=== PATIENT | male | born 1935 | race Caucasian/White ===

== ENCOUNTER 2020-07-02 13:27 | Outpatient (REF) | payer SELFPAY | END 2020-07-02 13:28 | disposition home or self-care (01) | LOC: HO.HAP 13:27 | PROVIDERS: Visit Provider Internal Medicine | DX: Z46.1 Encounter for fitting and adjustment of hearing aid (principal) | CPT/HCPCS: V5266; V5267 ==

== ENCOUNTER 2020-07-10 10:47 | Outpatient (REF) | payer MEDICARE, SELFPAY ==
[2020-07-10 13:46] LABS: Prothrombin Time 35.7 SEC (10.8-13.0)
== END 2020-07-10 10:48 | disposition home or self-care (01) ==
LOC: HO.10HDL 10:47
PROVIDERS: Visit Provider Internal Medicine
DX: I48.91 Unspecified atrial fibrillation (principal)
CPT/HCPCS: 36415; 85610

== ENCOUNTER → 2020-08-13 13:46 | Outpatient (BNVA) | payer MEDICARE, SELFPAY | PROVIDERS: PCP Internal Medicine; Referring Provider Internal Medicine; Visit Provider Internal Medicine Cardiovascular Disease | DX: Z76.89 Persons encountering health services in other specified circumstances (principal) ==

== ENCOUNTER → 2020-08-27 13:03 | Outpatient (BNVA) | payer MEDICARE, SELFPAY | PROVIDERS: PCP Internal Medicine; Visit Provider Internal Medicine Cardiovascular Disease | DX: I48.0 Paroxysmal atrial fibrillation (principal); I50.30 Unspecified diastolic (congestive) heart failure; I10 Essential (primary) hypertension | CPT/HCPCS: 93005; 99212 ==

== ENCOUNTER 2020-11-08 12:05 | Outpatient (REF) | payer MEDICARE, SELFPAY ==
[2020-11-08 13:43] LABS: MANUAL DIFF FLAG NO
[2020-11-08 13:56] LABS: Basophils Percent Auto 0.5 % (0-2); Eosinophils Absolute Auto 0.1 X10*3/uL (0.0-0.4); Eosinophils Percent Auto 1.9 % (0-4); Hematocrit 39.8 % (42-52); Hemoglobin 13.1 g/dl (14.0-18.0); Imm Gran Abs Auto 0.03 X10*3/uL (0.00-0.03); Imm Gran Pct Auto 0.5 % (0.0-0.4); Lymphocytes Absolute Auto 0.7 X10*3/uL (1.2-4.9); Lymphocytes Percent Auto 11.6 % (20-40); Mean Corpuscular HGB Conc 32.9 g/dl (31.0-36.0); Mean Corpuscular Hemoglobin 31.9 pg (27.0-33.0); Mean Corpuscular Volume 96.8 fL (80-98); Mean Platelet Volume 10.3 fL (9.4-12.4); Monocytes Absolute Auto 0.7 X10*3/uL (0.1-1.2); Monocytes Percent Auto 10.8 % (2-11); Neutrophils Absolute Auto 4.7 X10*3/uL (2.0-8.3); Neutrophils Percent Auto 74.7 % (45-73); Platelet Count 217 X10*3/uL (160-400); Red Blood Count 4.11 X10*6/uL (4.60-5.80); Red Cell Distribution Width 13.1 % (11.0-16.0); White Blood Count 6.3 X10*3/uL (4.8-10.8)
[2020-11-08 14:01] LABS: INTERNATIONAL NORM RATIO 1.5 (0.9-1.1); Prothrombin Time 17.9 SEC (10.8-13.0)
[2020-11-08 14:35] LABS: Alanine Aminotransferase 17 U/L (0-40); Albumin Level 4.2 g/dL (3.5-5.0); Alkaline Phosphatase 60 U/L (39-117); Anion Gap 13 (12-20); Aspartate Amino Transferase 20 U/L (5-37); Bilirubin Total 0.6 mg/dL (0.0-1.0); Blood Urea Nitrogen 14 mg/dL (9-16); Calcium 8.5 mg/dL (8.4-10.2); Carbon Dioxide 29 mmol/L (22-29); Chloride 101 mmol/L (96-108); Cholesterol 188 mg/dL; Estimated Glomerular Filt Rate > 60; Glucose Fasting 79 mg/dL (60-99); Potassium 3.4 mmol/L (3.3-5.1); Sodium 140 mmol/L (135-145); Total Protein 7.1 g/dL (6.5-8.0)
[2020-11-08 15:09] LABS: Thyroid Stimulating Hormone 1.03 uIU/mL (0.32-4.0)
== END 2020-11-08 12:06 | disposition home or self-care (01) ==
LOC: HO.10HDL 12:05
PROVIDERS: Visit Provider Internal Medicine
DX: I48.0 Paroxysmal atrial fibrillation (principal); I10 Essential (primary) hypertension; N40.0 Benign prostatic hyperplasia without lower urinary tract symptoms
CPT/HCPCS: 36415; 80053; 82465; 84443; 85025; 85610

== ENCOUNTER 2020-12-12 10:57 | Outpatient (REF) | payer MEDICARE, SELFPAY ==
[2020-12-12 14:14] LABS: INTERNATIONAL NORM RATIO 2.6 (0.9-1.1); Prothrombin Time 31.1 SEC (10.8-13.0)
== END 2020-12-12 10:58 | disposition home or self-care (01) ==
LOC: HO.10HDL 10:57
PROVIDERS: Visit Provider Internal Medicine
DX: I48.91 Unspecified atrial fibrillation (principal)
CPT/HCPCS: 36415; 85610

== ENCOUNTER → 2020-12-26 10:53 | Outpatient (BNVA) | payer MEDICARE, SELFPAY | PROVIDERS: PCP Internal Medicine; Visit Provider Physician Assistant | DX: M25.559 Pain in unspecified hip (principal) ==

== ENCOUNTER 2021-01-19 11:50 | Emergency (ER) | payer MEDICARE, SELFPAY ==
[2021-01-19 12:05] VITALS: BP 194/66; PULSE 75; RESP 17; TEMP 36.7; O2SAT 94; BMI 29.9
--- NOTE | 2021-01-19 12:18 | ED.WOUNDLAC ---
HPI - Wound/Laceration General Chief Complaint: Wound/Laceration Stated Complaint: WOUND R WRIST Time Seen by Provider: 01/19/21 12:10 Source: patient Mode of arrival: ambulatory Limitations: no limitations History of Present Illness HPI narrative: 85 y/o male with history of paroxysmal afib on Coumadin, HTN, BPH and recent subconjunctival hemorrhage to right eye (evaluated by Dr. Martinez last week) who presents to the ED from home with small abrasion on right forearm that is bleeding. He reports last night he itched what felt like a bug bite and it resulted in bleeding. He applied pressure and put a band aid on it with resolution. This morning he woke up and the bandage was saturated with blood. On arrival bleeding is resolved. Denies significant trauma. He reports his last INR was check a few weeks ago and was in the [address] Maurer manages his Coumadin and he is on alternating doses because he has had issues going up and down. He denies melena, BRBPR, hematuria or other sources of bleeding. No chest pain or dizziness. Onset (ago): day(s) (1) Extremity Location: right: forearm (distal lower aspect) Place: home Patient tetanus UTD: No Context: accidental Associated symptoms: none Treatments prior to arrival: bandage Related Data Home Medications Medication Instructions Recorded Confirmed amlodipine 5 mg tablet 5 mg PO DAILY tab 08/27/20 08/27/20 finasteride 5 mg tablet 5 mg PO DAILY tab 08/27/20 08/27/20 warfarin 5 mg tablet mg PO 08/27/20 08/27/20 Previous Rx's Medication Instructions Recorded amiodarone 200 mg tablet 200 mg PO DAILY #90 cap 11/06/20 metoprolol succinate 50 mg 50 mg PO DAILY #30 cap 11/06/20 tablet,extended release 24 hr Allergies Allergy/AdvReac Type Severity Reaction Status Date / Time No Known Allergies Allergy Mild NOT Verified 01/19/21 12:08 APPLICABLE Review of Systems Review of Systems: Constitutional: No Fever, No Chills ENT: no epistaxis Eyes: No Eye Pain, No Swelling, + Redness Cardiovascular: No Chest Pain, No SOB Gastrointestinal: No Nausea, No Vomiting, No Diarrhea, No abdominal Pain, No Hematochezia, No Melena Genitourinary: No Hematuria Musculoskeletal: No joint pain, No Myalgias Skin: + Skin Lesions, No rash Neuro: No Weakness, No Numbness, No Dizziness, No Headache Heme/Lymph: + Bruising, No Lymphadenopathy PMFSH Past Medical History Attestation statement: The following information was validated with the patient. Medical History (HFpEF) heart failure with preserved ejection fraction HTN (hypertension) Paroxysmal atrial fibrillation Surgical History History of cardioversion Family History Family History Father No problems noted. Mother No problems noted. Social History Social History Advance Directives: Yes Advance Directives Information Provided: Yes Advance Directives on File: No Physical Exam Vital Signs: Vital Signs: Last Vital Signs Temp 98.0 F 01/19/21 12:05 Pulse 75 01/19/21 12:05 Resp 17 01/19/21 13:10 BP 171/69 H 01/19/21 13:10 Pulse Ox 94 01/19/21 12:05 Body Mass Index 29.9 Appearance: Alert. Oriented X3. No acute distress. HEENT:right eye with sceral injection and redness consistent with subconjunctival hemorrhage. Respiratory: No respiratory distress. Speaking in complete sentences Skin: Skin warm and dry. Normal skin color. Normal skin turgor. No rashes. Extremities: Puntate abrasion on distal dorsal aspect of right forearm with slight oozing of blood, mild surrounding ecchymosis. NV intact distally with 2+ radial pulse, normal hand grasp. No bony tenderness. Normal ROM of the right wrist. Neuro: Oriented X 3. No motor deficit. No sensory deficit. Course Course Course Narrative: 85 y/o male on Coumadin presenting with a small abrasion on his forearm that was bleeding more than expected. Minimal active bleeding on arrival, stopped with holding pressure. Given his recent subconjunctival hemorrage and bleeding out of proportion will check INR. No signs of GI bleed or anemia. Reevaluation(s) Reevaluation #1: INR elevated 7.5. Patient advised to STOP taking Coumadin adn get INR checked tomorrow or Janee at the latest. He has a standing order at [address] and agrees to follow up wtih Dr. Maurer tomorrow. He was counseled on bleeding risk as well as signs and symptoms of GIB and symptomatic anemia. No active bleeding at this time. Hemodynamically stable. Comfortable with d/c home and plan for close outpatient follow up. Patient agrees with plan. MDM - Wound/Laceration Lab Data Labs: Lab Results 01/19/21 Range/Units 12:53 PT 91.6 H D (10.8-13.0) SEC INR 7.5 H* D (0.9-1.1) Discharge Plan Discharge Clinical Impression: Supratherapeutic INR, Superficial abrasion Patient Disposition: Home, Self-Care Instructions: Elevated INR (ED) Additional Instructions: Your INR today was 7.5. You need to get it rechecked tomorrow or Wednesday morning latest. DO NOT take your warfarin tomorrow. If you develop signs or symptoms of acute bleeding come to the ER for urgent evaluation. Follow up with Dr. Maurer tomorrow. Prescriptions: No Action amiodarone 200 mg tablet 200 mg PO DAILY Qty: 90 RF: 0 metoprolol succinate 50 mg tablet extended release 24 hr 50 mg PO DAILY Qty: 30 RF: 1 amlodipine 5 mg tablet 5 mg PO DAILY RF: 0 warfarin 5 mg tablet PO RF: 0 finasteride 5 mg tablet 5 mg PO DAILY RF: 0 Referrals: Marcos Maurer MD [Primary Care Provider] - 2 days (INR 7.5)
[2021-01-19 13:10] VITALS: BP 171/69; RESP 17
[2021-01-19 13:16] LABS: Prothrombin Time 91.6 SEC (10.8-13.0)
[2021-01-19 13:20] LABS: INTERNATIONAL NORM RATIO 7.5 (0.9-1.1)
== END 2021-01-19 13:44 | disposition home or self-care (01) ==
PROVIDERS: Physician Assistant; Emergency Provider Emergency Medicine; PCP Internal Medicine
DX: S50.811A Abrasion of right forearm, initial encounter (principal); M79.631 Pain in right forearm; R79.89 Other specified abnormal findings of blood chemistry; X58.XXXA Exposure to other specified factors, initial encounter; Y93.9 Activity, unspecified; Y92.9 Unspecified place or not applicable; Y99.9 Unspecified external cause status; Z79.899 Other long term (current) drug therapy
CPT/HCPCS: 36415; 85610; 99284

== ENCOUNTER 2021-01-25 08:29 | Inpatient (IN) | payer MEDICARE, SELFPAY ==
[2021-01-25] VITALS (7 sets, daily range): BP systolic 143–170; BP diastolic 46–76; PULSE 66–120; RESP 16–21; TEMP 36.4–39.2; O2SAT 87–98; BMI 29.9
--- NOTE | ~2021-01-25 | CT_ITS ---
EXAMINATION: CT ANGIOGRAM OF THE CHEST WITH AND WITHOUT CONTRAST (CT PULMONARY ANGIOGRAM FOR PE) CLINICAL INFORMATION: Reason for Exam febrile, hypoxic COMPARISON: Chest x-ray of same day and CT scan of March 05, 2010 TECHNIQUE: Prior to contrast administration, noncontrast localization images were obtained. Subsequently, multidetector volumetric imaging was performed from the thoracic inlet to below the diaphragms following the administration of 65 mL Omnipaque 350 intravenous contrast. No contrast reaction reported Sagittal, coronal, and MIP oblique sagittal reformatted images were obtained on the CT workstation, uploaded to PACS, and reviewed. This CT examination was performed using dose optimization techniques as appropriate, variously including the following: *Automated exposure control *Adjustment of mA and/or kV according to patient size (this includes techniques or standardized protocols for targeted exams where dose is matched to indication/reason for exam; i.e. extremities or head) *Use of iterative reconstruction technique Total exam dose-length product 491 mGy-cm FINDINGS: QUALITY OF STUDY/CONTRAST BOLUS: Satisfactory. PULMONARY ARTERIES: No central or segmental pulmonary emboli. THORACIC AORTA: No aneurysm or dissection. LUNG: There are changes of centrilobular emphysema seen bilaterally. There is some faint groundglass opacity present which is nonspecific but without a peripheral distribution having more of a central distribution. Central airways are patent. There is some mild bronchial wall thickening present. Findings may be related to mild pulmonary vascular congestion versus related to air trapping with small airways disease. There is bibasilar dependent airspace disease seen with the appearance of atelectasis. There are a few sub-4 mm densities present as well as some scattered calcified granulomas. PLEURA: There are very small bilateral pleural effusions. MEDIASTINUM: There is AP window, right paratracheal, and precarinal lymphadenopathy present. There is right hilar lymphadenopathy with less prominent left hilar nodes present. Heart is mildly enlarged. No pericardial effusion. Coronary artery calcifications are present. The ascending thoracic aorta is prominent at 4.6 cm in diameter. No evidence of thoracic aortic dissection. Coronary artery calcification is seen. No evidence of septal bowing or right heart strain. CHEST WALL/AXILLA: No axillary or internal mammary lymphadenopathy. There appears to be a lipoma within the right deltoid muscle. OSSEOUS STRUCTURES: No suspicious destructive bony lesion identified. There are old healed right rib fractures. There is multilevel degenerative disc disease seen. UPPER ABDOMEN: There is cholelithiasis without evidence of acute cholecystitis. No reflux of contrast into the hepatic veins to suggest elevated right heart pressures. CT/CT angio chest PE protocol IMPRESSION: No evidence of acute pulmonary artery embolus or thoracic aortic aneurysm or dissection. Changes of centrilobular emphysema as well as some nonspecific central groundglass opacity and bronchial wall thickening and interstitial prominence consistent with some degree of pulmonary vascular congestion. Mediastinal and hilar lymphadenopathy. Cholelithiasis without evidence of acute cholecystitis. Old granulomatous disease. Small bilateral pleural effusions and bibasilar atelectasis. VTE: negative
--- NOTE | ~2021-01-25 | XR_ITS ---
EXAMINATION: XR CHEST CLINICAL INFORMATION: Fever COMPARISON: July 11, 2019 TECHNIQUE: AP portable view of the chest was obtained. FINDINGS: Film is rotated. No significant acute parenchyma disease is appreciated. Heart normal size. No pulmonary edema. No pneumothorax. No significant pleural effusion. XR/XR chest 1V IMPRESSION: No definite acute parenchymal disease.
--- NOTE | 2021-01-25 09:11 | ECG_ITS ---
Test Reason : SHORT OF BREATH Blood Pressure : / mmHG Vent. Rate : 082 BPM Atrial Rate : 082 BPM P-R Int : 210 ms QRS Dur : 174 ms QT Int : 458 ms P-R-T Axes : 000 -55 030 degrees QTc Int : 535 ms Sinus rhythm with 1st degree A-V block Right bundle branch block Left anterior fascicular block Bifascicular block Septal infarct (cited on or before 28-JAN-2018) Cannot rule out Inferior infarct (cited on or before 28-JAN-2018) Abnormal ECG When compared with ECG of 08-FEB-2019 14:51, Left anterior fascicular block is now Present Referred By: Charis Rodarte Electronically Signed By:PERICO BHARDWAJ MD
--- NOTE | 2021-01-25 09:13 | ED_ITS ---
HPI - General Adult General Chief complaint: General Medical Stated complaint: NAUSEA,DIARRHEA X'S 2 HOURS Time Seen by Provider: 01/25/21 09:00 Source: EMS Mode of arrival: EMS History of Present Illness HPI narrative: 85-year-old male with a past medical history of AFib on Coumadin, CHF, HTN, BPH, subconjunctival hemorrhage, BIBA c/o waking up with chills, diarrhea, and not feeling right this morning so told his to call EMS. [place] s cough, headache, chest pain, shortness of breath, abdominal pain, nausea/vomiting, constipation, LE edema, dysuria/hematuria, weakness Onset (ago): hour(s) Related Data Home Medications Medication Instructions Recorded Confirmed amlodipine 5 mg tablet 5 mg PO DAILY tab 08/27/20 08/27/20 finasteride 5 mg tablet 5 mg PO DAILY tab 08/27/20 08/27/20 warfarin 5 mg tablet mg PO 08/27/20 08/27/20 Previous Rx's Medication Instructions Recorded amiodarone 200 mg tablet 200 mg PO DAILY #90 cap 11/06/20 metoprolol succinate 50 mg 50 mg PO DAILY #30 cap 11/06/20 tablet,extended release 24 hr Allergies Allergy/AdvReac Type Severity Reaction Status Date / Time No Known Allergies Allergy Mild NOT Verified 01/19/21 12:08 APPLICABLE Review of Systems Review of Systems: Constitutional: No Fever, + Chills, No Night Sweats, No Fatigue, No Malaise ENT/Mouth: No Ear Pain, No Nasal Congestion, No sore throat, No Rhinorrhea Eyes: No Eye Pain, No Discharge, No Vision Changes Cardiovascular: No Chest Pain, No SOB, No Edema, No Palpitations Respiratory: No Cough, No Dyspnea Gastrointestinal: No Nausea, No Vomiting, + Diarrhea, No Constipation, No Abdominal pain Genitourinary: No Dysuria, No Hematuria, No Flank Pain Musculoskeletal: No joint pain, No Myalgias, No Joint Swelling Skin: No Skin Lesions, No rash Neuro: No Weakness, No Headache Yes all other systems are reviewed and are negative [facility] Past Medical History Attestation statement: The following information was validated with the patient. Medical History (HFpEF) heart failure with preserved ejection fraction HTN (hypertension) Paroxysmal atrial fibrillation Surgical History History of cardioversion Family History Family History Father No problems noted. Mother No problems noted. Social History Social History Alcohol intake: current Alcohol intake frequency: 0-2 drinks per day Smoking Status: Former smoker Use of substances other than those prescribed or required for medical reasons: No Advance Directives: No Advance Directives Information Provided: No Physical Exam Vital Signs: Vital Signs: Last Vital Signs Temp 101.2 F H 01/25/21 11:21 Pulse 77 01/25/21 11:21 Resp 18 01/25/21 11:21 BP 144/70 H 01/25/21 11:21 Pulse Ox 95 01/25/21 11:21 Body Mass Index 29.9 Const: General: cooperative Nutritional Appearance: overweight Orientation/consciousness: patient oriented x3 Limitations: no limitations HENMT: Head: Yes normal to inspection Ears: hearing grossly normal bilaterally General nose exam: Normal external nose present Face and sinus: Yes normal facial exam Eyes: General: appearance normal, both eyes and all related structures EOM: EOMs intact bilaterally Neck: Neck: Yes normal visual inspection and Yes no meningeal signs Resp: Other: increased WOB when lying patient flat/standing Effort & Inspection: normal respiratory effort Auscultation: clear to auscultation bilaterally, no rales, no rhonchi and no wheezes Cardio: Rate: regular rate Heart sounds: S1 normal heart sound present and S2 normal heart sound present GI: Inspection: Yes normal to inspection Palpation (GI): Soft to palpation, nontender, no guarding and not rigid Skin: Rashes: no rashes Wounds: no wounds Neuro: General: patient oriented x3, tone normal and no meningeal signs Extrem: Other: +2 bilateral LE edema General: Yes normal to inspection Course Course Course Narrative: -1043--mild leukocytosis of 11.6, H&H stable, BUN mildly elevated to 26, AST elevated, BNP 851 -UA negative -lactic 1.4, INR therapeutic. Patient is not meeting severe sepsis criteria. Avoiding excessive IVF secondary to fluid overload and elevated BNP/hypoxia -1128--COVID-19/influenza/RSV negative XR chest 1V IMPRESSION: No definite acute parenchymal disease. >> will obtain CTA to rule out PE and pneumonia CT angio chest PE protocol IMPRESSION: No evidence of acute pulmonary artery embolus or thoracic aortic aneurysm or dissection. Changes of centrilobular emphysema as well as some nonspecific central groundglass opacity and bronchial wall thickening and interstitial prominence consistent with some degree of pulmonary vascular congestion. Mediastinal and hilar lymphadenopathy. Cholelithiasis without evidence of acute cholecystitis. Old granulomatous disease. Small bilateral pleural effusions and bibasilar atelectasis. VTE: negative >> 1440-- IV doxycycline added. Plan to admit for further management Medical Decision Making MDM Narrative Medical decision making narrative: 85-year-old male with a past medical history of AFib on Coumadin, CHF, HTN, BPH, subconjunctival hemorrhage, BIBA c/o waking up with chills, diarrhea, and not feeling right this morning so told his to call EMS. Reports slight diarrhea. On exam initially satting 90% on RA, dropped to 87% when standing, lungs CTA, increased WOB when lying flat, abdomen soft/nontender, bilateral LE edema. Concern for COVID-19/viral syndrome vs CHF. Rule out pneumonia and other infectious etiology. Lower concern for intra- abdominal pathology or ACS Plan: EKG, labs, COVID-19 testing, CXR, UA, IVF, Lactic/Blood Cx, empiric IV antibiotics, reassess Lab Data Result diagrams: 01/25/21 09:37 01/25/21 09:37 Labs: Lab Results 01/25/21 01/25/21 01/25/21 Range/Units 09:37 09:37 09:37 WBC 11.6 H (4.8-10.8) X10*3/uL RBC 3.46 L (4.60-5.80) X10*6/uL Hgb 11.5 L (14.0-18.0) g/dl Hct 34.9 L (42-52) % MCV 100.9 H (80-98) fL MCH 33.2 H (27.0-33.0) pg MCHC 33.0 (31.0-36.0) g/dl RDW 14.0 (11.0-16.0) % Plt Count 148 L D (160-400) X10*3/uL MPV 10.2 (9.4-12.4) fL Immature Gran % (Auto) 0.4 (0.0-0.4) % Neut % (Auto) 97.7 H (45-73) % Lymph % (Auto) 0.9 L (20-40) % [place] % (Auto) 0.5 L (2-11) % Eos % (Auto) 0.4 (0-4) % Baso % (Auto) 0.1 (0-2) % Lymph # (Auto) 0.1 L (1.2-4.9) X10*3/uL [place] # (Auto) 0.1 (0.1-1.2) X10*3/uL Eos # (Auto) 0.1 (0.0-0.4) X10*3/uL Baso # (Auto) 0.0 (0.0-0.2) X10*3/uL Abs Immat Gran (auto) 0.05 H (0.00-0.03) X10*3/uL Absolute Neuts (auto) 11.3 H (2.0-8.3) X10*3/uL Absolute Nucleated RBC 0.000 (0.0-0.012) X10*3/uL Nucleated RBC % (auto) 0.0 (0.0-0.2) /100WBC Smear Tech's Comments VERIFIED PT (10.8-13.0) SEC INR (0.9-1.1) APTT (24.1-38.0) SEC Sodium 145 (135-145) mmol/L Potassium 3.3 (3.3-5.1) mmol/L Chloride 109 H (96-108) mmol/L Carbon Dioxide 27 (22-29) mmol/L Anion Gap 12 (12-20) BUN 26 H D (9-16) mg/dL Creatinine 1.04 (0.5-1.4) mg/dL Estim Creat Clear Calc 58.2 Estimated GFR > 60 Random Glucose 95 (60-115) mg/dL Lactic Acid (0.5-2.0) mmol/L Calcium 9.0 (8.4-10.2) mg/dL Magnesium 2.0 (1.6-2.6) mg/dL Total Bilirubin 0.6 (0.0-1.0) mg/dL Direct Bilirubin 0.2 (0.0-0.5) mg/dL AST 71 H (5-37) U/L ALT 35 (0-40) U/L Alkaline Phosphatase 88 D (39-117) U/L Troponin I High Sens 26.1 (<3.5-35.0) ng/L B-Natriuretic Peptide (<100) pg/mL Total Protein 6.9 (6.5-8.0) g/dL Albumin 4.1 (3.5-5.0) g/dL Lipase (8-78) U/L Urine Color Urine Appearance Urine pH (5.0-8.0) Ur Specific [place] (1.005-1.025) Urine Protein (NEG-TRACE) MG/DL Urine Glucose (UA) (NEG) MG/DL Urine Ketones (NEG) MG/DL Urine Blood (NEG) Urine Nitrite (NEG) Ur Leukocyte Esterase (NEG) Coronavirus (PCR) (Negative) Influenza Type A (PCR) (Negative) Influenza Type B (PCR) (Negative) RSV RNA Qual (PCR) (Negative) 01/25/21 01/25/21 01/25/21 Range/Units 09:37 09:37 09:37 WBC (4.8-10.8) X10*3/uL RBC (4.60-5.80) X10*6/uL Hgb (14.0-18.0) g/dl Hct (42-52) % MCV (80-98) fL MCH (27.0-33.0) pg MCHC (31.0-36.0) g/dl RDW (11.0-16.0) % Plt Count (160-400) X10*3/uL MPV (9.4-12.4) fL Immature Gran % (Auto) (0.0-0.4) % Neut % (Auto) (45-73) % Lymph % (Auto) (20-40) % [place] % (Auto) (2-11) % Eos % (Auto) (0-4) % Baso % (Auto) (0-2) % Lymph # (Auto) (1.2-4.9) X10*3/uL [place] # (Auto) (0.1-1.2) X10*3/uL Eos # (Auto) (0.0-0.4) X10*3/uL Baso # (Auto) (0.0-0.2) X10*3/uL Abs Immat Gran (auto) (0.00-0.03) X10*3/uL Absolute Neuts (auto) (2.0-8.3) X10*3/uL Absolute Nucleated RBC (0.0-0.012) X10*3/uL Nucleated RBC % (auto) (0.0-0.2) /100WBC Smear Tech's Comments PT 28.3 H D (10.8-13.0) SEC INR 2.4 H (0.9-1.1) APTT 45.9 H (24.1-38.0) SEC Sodium (135-145) mmol/L Potassium (3.3-5.1) mmol/L Chloride (96-108) mmol/L Carbon Dioxide (22-29) mmol/L Anion Gap (12-20) BUN (9-16) mg/dL Creatinine (0.5-1.4) mg/dL Estim Creat Clear Calc Estimated GFR Random Glucose (60-115) mg/dL Lactic Acid 1.4 (0.5-2.0) mmol/L Calcium (8.4-10.2) mg/dL Magnesium (1.6-2.6) mg/dL Total Bilirubin (0.0-1.0) mg/dL Direct Bilirubin (0.0-0.5) mg/dL AST (5-37) U/L ALT (0-40) U/L Alkaline Phosphatase (39-117) U/L Troponin I High Sens (<3.5-35.0) ng/L B-Natriuretic Peptide 851 H (<100) pg/mL Total Protein (6.5-8.0) g/dL Albumin (3.5-5.0) g/dL Lipase (8-78) U/L Urine Color Urine Appearance Urine pH (5.0-8.0) Ur Specific [place] (1.005-1.025) Urine Protein (NEG-TRACE) MG/DL Urine Glucose (UA) (NEG) MG/DL Urine Ketones (NEG) MG/DL Urine Blood (NEG) Urine Nitrite (NEG) Ur Leukocyte Esterase (NEG) Coronavirus (PCR) (Negative) Influenza Type A (PCR) (Negative) Influenza Type B (PCR) (Negative) RSV RNA Qual (PCR) (Negative) 01/25/21 01/25/21 01/25/21 Range/Units 09:37 09:37 09:37 WBC (4.8-10.8) X10*3/uL RBC (4.60-5.80) X10*6/uL Hgb (14.0-18.0) g/dl Hct (42-52) % MCV (80-98) fL MCH (27.0-33.0) pg MCHC (31.0-36.0) g/dl RDW (11.0-16.0) % Plt Count (160-400) X10*3/uL MPV (9.4-12.4) fL Immature Gran % (Auto) (0.0-0.4) % Neut % (Auto) (45-73) % Lymph % (Auto) (20-40) % [place] % (Auto) (2-11) % Eos % (Auto) (0-4) % Baso % (Auto) (0-2) % Lymph # (Auto) (1.2-4.9) X10*3/uL [place] # (Auto) (0.1-1.2) X10*3/uL Eos # (Auto) (0.0-0.4) X10*3/uL Baso # (Auto) (0.0-0.2) X10*3/uL Abs Immat Gran (auto) (0.00-0.03) X10*3/uL Absolute Neuts (auto) (2.0-8.3) X10*3/uL Absolute Nucleated RBC (0.0-0.012) X10*3/uL Nucleated RBC % (auto) (0.0-0.2) /100WBC Smear Tech's Comments PT (10.8-13.0) SEC INR (0.9-1.1) APTT (24.1-38.0) SEC Sodium (135-145) mmol/L Potassium (3.3-5.1) mmol/L Chloride (96-108) mmol/L Carbon Dioxide (22-29) mmol/L Anion Gap (12-20) BUN (9-16) mg/dL Creatinine (0.5-1.4) mg/dL Estim Creat Clear Calc Estimated GFR Random Glucose (60-115) mg/dL Lactic Acid (0.5-2.0) mmol/L Calcium (8.4-10.2) mg/dL Magnesium (1.6-2.6) mg/dL Total Bilirubin (0.0-1.0) mg/dL Direct Bilirubin (0.0-0.5) mg/dL AST (5-37) U/L ALT (0-40) U/L Alkaline Phosphatase (39-117) U/L Troponin I High Sens (<3.5-35.0) ng/L B-Natriuretic Peptide (<100) pg/mL Total Protein (6.5-8.0) g/dL Albumin (3.5-5.0) g/dL Lipase 29 (8-78) U/L Urine Color YELLOW Urine Appearance CLEAR Urine pH 6.0 (5.0-8.0) Ur Specific [place] 1.020 (1.005-1.025) Urine Protein TRACE (NEG-TRACE) MG/DL Urine Glucose (UA) NEG (NEG) MG/DL Urine Ketones NEG (NEG) MG/DL Urine Blood NEG (NEG) Urine Nitrite NEG (NEG) Ur Leukocyte Esterase NEG (NEG) Coronavirus (PCR) NEGATIVE (Negative) Influenza Type A (PCR) NEGATIVE (Negative) Influenza Type B (PCR) NEGATIVE (Negative) RSV RNA Qual (PCR) NEGATIVE (Negative) Discharge Plan Discharge Clinical Impression: Pneumonia Qualifiers: Pneumonia type: due to unspecified organism Laterality: unspecified laterality Lung location: unspecified part of lung Qualified Code(s): J18.9 - Pneumonia, unspecified organism Patient Disposition: Home, Self-Care Prescriptions: No Action amiodarone 200 mg tablet 200 mg PO DAILY Qty: 90 RF: 0 metoprolol succinate 50 mg tablet extended release 24 hr 50 mg PO DAILY Qty: 30 RF: 1 amlodipine 5 mg tablet 5 mg PO DAILY RF: 0 warfarin 5 mg tablet PO RF: 0 finasteride 5 mg tablet 5 mg PO DAILY RF: 0
--- NOTE | 2021-01-25 09:19 | PC.NURSE ---
SOB with minimal exertion. LS clear. plus 2-3 pitting edema ble. cleansed of [place] loose stool in underwear from earlier diarrhea at home. pt is able to stand and urinate with minimal assist but WOB increases. states he doesn't feel SOB and is at baseline resp status. sao2 drops to 87% when standing. recovers quickly at rest in bed. very dry MM. SR on monitor with few pvc's and ? Right bundle. Awaiting EKG.
--- NOTE | 2021-01-25 09:55 | PC.NURSE ---
Update to , Ric, 2nd dose of covid vaccine was at least a month ago. drinks 4oz of hard liquor each evening.
[2021-01-25 10:08] LABS: Basophils Percent Auto 0.1 % (0-2); Eosinophils Absolute Auto 0.1 X10*3/uL (0.0-0.4); Eosinophils Percent Auto 0.4 % (0-4); Hematocrit 34.9 % (42-52); Hemoglobin 11.5 g/dl (14.0-18.0); Imm Gran Abs Auto 0.05 X10*3/uL (0.00-0.03); Imm Gran Pct Auto 0.4 % (0.0-0.4); Lymphocytes Absolute Auto 0.1 X10*3/uL (1.2-4.9); Lymphocytes Percent Auto 0.9 % (20-40); MANUAL DIFF FLAG SCAN; Mean Corpuscular Hemoglobin 33.2 pg (27.0-33.0); Mean Corpuscular Volume 100.9 fL (80-98); Mean Platelet Volume 10.2 fL (9.4-12.4); Monocytes Absolute Auto 0.1 X10*3/uL (0.1-1.2); Monocytes Percent Auto 0.5 % (2-11); Neutrophils Absolute Auto 11.3 X10*3/uL (2.0-8.3); Neutrophils Percent Auto 97.7 % (45-73); Platelet Count 148 X10*3/uL (160-400); Red Blood Count 3.46 X10*6/uL (4.60-5.80); SCAN SMEAR FLAG 1; White Blood Count 11.6 X10*3/uL (4.8-10.8)
[2021-01-25 10:09] LABS: INTERNATIONAL NORM RATIO 2.4 (0.9-1.1); Prothrombin Time 28.3 SEC (10.8-13.0)
[2021-01-25 10:10] LABS: Glucose Urine UA NEG (NEG); Leukocyte Esterase Urine NEG (NEG); Nitrite Urine NEG (NEG); Urine Blood NEG (NEG); Urine Ketones NEG (NEG); Urine Protein TRACE MG/DL (NEG-TRACE)
[2021-01-25 10:11] LABS: Appearance Urine CLEAR; Color Urine YELLOW
[2021-01-25 10:21] LABS: Partial Thromboplastin Time 45.9 SEC (24.1-38.0)
[2021-01-25 10:26] LABS: Lactic Acid 1.4 mmol/L (0.5-2.0)
[2021-01-25 10:30] LABS: Lipase 29 U/L (8-78)
[2021-01-25 10:31] LABS: Alanine Aminotransferase 35 U/L (0-40); Albumin Level 4.1 g/dL (3.5-5.0); Alkaline Phosphatase 88 U/L (39-117); Anion Gap 12 (12-20); Aspartate Amino Transferase 71 U/L (5-37); Bilirubin Direct 0.2 mg/dL (0.0-0.5); Bilirubin Total 0.6 mg/dL (0.0-1.0); Blood Urea Nitrogen 26 mg/dL (9-16); Carbon Dioxide 27 mmol/L (22-29); Chloride 109 mmol/L (96-108); Creatinine Clr Calc Pharmacy 58.2; Estimated Glomerular Filt Rate > 60; Glucose Random 95 mg/dL (60-115); Potassium 3.3 mmol/L (3.3-5.1); Sodium 145 mmol/L (135-145); Total Protein 6.9 g/dL (6.5-8.0)
[2021-01-25 10:32] LABS: SLIDE REVIEW VERIFIED
[2021-01-25 10:38] LABS: B Type Natriuretic Peptide 851 pg/mL (<100); Troponin-I High Sensitivity 26.1 ng/L (<3.5-35.0)
[2021-01-25] MEDS: Acetaminophen 325 MG TABLET 650 MG PO (10:38)
[2021-01-25] MEDS: cefTRIAXone sodium 1 GM in 0.9 % Sodium Chloride 50 ML IV (10:39)
[2021-01-25] MEDS: 0.9 % Sodium Chloride 1,000 ML 999 ML IVCONT (10:39)
[2021-01-25 10:54] LABS: Influenza A PCR NEGATIVE (Negative); Influenza B PCR NEGATIVE (Negative); Resp Syncy Virus RNA Qual PCR NEGATIVE (Negative); SARS COV2 PCR INHOUSE NEGATIVE (Negative)
[2021-01-25] MEDS: iohexoL 350 MG/ML 100 ML INFUS..BTL IV (13:20)
[2021-01-25] MEDS: Doxycycline Hyclate 100 MG in 0.9 % Sodium Chloride 250 ML 166.67 MG IV (15:39)
--- NOTE | 2021-01-25 15:44 | PC.NURSE ---
unlabored at rest. nsr with rbundle on monitor. awaits admission. no complaints at this time.
--- NOTE | 2021-01-25 17:15 | P.HPHOSP_ITS ---
History of Present Illness Date of Service: 01/25/21 <TONY Plaza - Last Filed: 01/25/21 17:27> Chief Complaint: Chills <TONY Plaza - Last Filed: 01/25/21 17:27> This is an 85-year-old male with a history of atrial fibrillation Coumadin, hypertension, BPH who presents to the emergency department after an episode of chills. Yesterday he was in his usual state of health. Today when he woke he reported an episode of chills and 1 small episode of diarrhea. He reports he not feeling right. He denies any shortness of breath, cough, fever, recent sick contacts. He has had no abdominal pain, nausea, vomiting. He was brought to the emergency department for evaluation. On arrival he was febrile with a temperature of 102.5 degrees. He was not tachycardic or tachypneic however his oxygen saturation dropped to 87% on room air.He underwent CTA which showed no evidence of pulmonary embolism. It did show centrilobular emphysema as well as central ground-glass opacity bronchial wall thickening and interstitial prominence consistent with pulmonary vascular congestion. His BNP was elevated at 851. COVID swab and flu swab were negative. He was treated with IV antibiotics in the decision was made to admit him for further management. Patient reports that his symptoms have completely resolved at this time. <TONY Plaza - Last Filed: 01/25/21 17:27> Review of Systems Review of Systems: Yes all other systems are reviewed and are negative <TONY Plaza - Last Filed: 01/25/21 17:27> Constitutional: Constitutional: Denies fever(s) <TONY Plaza Last Filed: 01/25/21 17:27> Cardiovascular: Cardiovascular: Denies chest pain <TONY Plaza Last Filed: 01/25/21 17:27> Respiratory: Respiratory: Denies cough <TONY Plaza Last Filed: 01/25/21 17:27> Gastrointestinal: Gastrointestinal: Denies abdominal pain <TONY Plaza Last Filed: 01/25/21 17:27> [facility] Medical History: Medical History (HFpEF) heart failure with preserved ejection fraction HTN (hypertension) Paroxysmal atrial fibrillation <TONY Plaza - Last Filed: 01/25/21 17:27> Family History: Family History Father No problems noted. Mother No problems noted. <TONY Plaza - Last Filed: 01/25/21 17:27> Surgical History: Surgical History History of cardioversion <TONY Plaza - Last Filed: 01/25/21 17:27> Social History: Social History Household Members: Spouse Housing: House Do you presently have visiting nurse or other home services: No Alcohol intake: current Alcohol intake frequency: 0-2 drinks per day Smoking Status: Former smoker Use of substances other than those prescribed or required for medical reasons: No Currently Displaying Signs/Symptoms of Drug Intoxication Withdrawal: No Have you been hit, kicked, punched, or otherwise hurt by someone within the past year? If so, by whom?: No Do you feel safe in your current relationship?: Yes Is there a partner from a previous relationship who is making you feel unsafe now?: No Are you made to feel afraid or neglected: No Advance Directives: No Advance Directives Information Provided: No Do you have thoughts of harming others: None Do you have a plan to hurt others: No Plan Recently lost weight without trying: Unsure Nutrition Risks: No Nutritional Risk Poor oral hygiene: No Current occupational status: retired <TONY Plaza - Last Filed: 01/25/21 17:27> Meds Allergies/Adverse reactions: Allergies Allergy/AdvReac Type Severity Reaction Status Date / Time No Known Allergies Allergy Mild NOT Verified 01/19/21 12:08 APPLICABLE <TONY Plaza - Last Filed: 01/25/21 17:27> Home medications: Home Medications Medication Instructions Recorded Confirmed Last Taken Type amlodipine 5 mg tablet 5 mg PO DAILY tab 08/27/20 01/25/21 01/24/21 History finasteride 5 mg tablet 5 mg PO DAILY tab 08/27/20 01/25/21 01/24/21 History warfarin 5 mg tablet 5 mg PO DAILY 08/27/20 01/25/21 01/24/21 History <TONY Plaza - Last Filed: 01/25/21 17:27> Physical Exam Vital Signs and Narrative: Vital Signs: Last Vital Signs Temp 98.4 F 01/25/21 15:42 Pulse 66 01/25/21 15:42 Resp 18 01/25/21 15:42 BP 152/67 H 01/25/21 15:42 Pulse Ox 98 01/25/21 15:42 Body Mass Index 29.9 <TONY Plaza - Last Filed: 01/25/21 17:27> Const: Nutritional Appearance: well nourished <TONY Plaza - Last Filed: 01/25/21 17:27> Orientation/consciousness: patient oriented x3 <TONY Plaza - Last Filed: 01/25/21 17:27> HENMT: Head: Yes normocephalic and Yes atraumatic <TONY Plaza - Last Filed: 01/25/21 17:27> Eyes: Sclerae: sclerae normal <TONY Plaza - Last Filed: 01/25/21 17:27> Chest: Chest palpation & inspection: normal inspection of the chest <TONY Plaza - Last Filed: 01/25/21 17:27> Resp: Effort & Inspection: normal respiratory effort and no respiratory distress <TONY Plaza - Last Filed: 01/25/21 17:27> Auscultation: clear to auscultation bilaterally <TONY Plaza - Last Filed: 01/25/21 17:27> Cardio: Rate: regular rate <TONY Plaza - Last Filed: 01/25/21 17:27> Rhythm: regular rhythm <TONY Plaza - Last Filed: 01/25/21 17:27> GI: Palpation (GI): Soft to palpation and nontender <TONY Plaza - Last Filed: 01/25/21 17:27> Neuro: General: patient oriented x3 <TONY Plaza - Last Filed: 01/25/21 17:27> Cranial nerves: Yes CN's II-XII intact bilaterally and Yes Bilaterally intact EOM present <TONY Plaza - Last Filed: 01/25/21 17:27> Extrem: Other: Bilateral leg edema <TONY Plaza - Last Filed: 01/25/21 17:27> Results Labs CBC and Chem 7: : 01/26/21 04:30 01/26/21 04:30 <TONY Plaza - Last Filed: 01/25/21 17:27> Labs: Laboratory Results - last 24 hr 01/25/21 01/25/21 01/25/21 09:37 09:37 09:37 MCV 100.9 H MCH 33.2 H MCHC 33.0 RDW 14.0 Plt Count 148 L D MPV 10.2 Immature Gran % (Auto) 0.4 Neut % (Auto) 97.7 H Lymph % (Auto) 0.9 L [place] % (Auto) 0.5 L Eos % (Auto) 0.4 Baso % (Auto) 0.1 Lymph # (Auto) 0.1 L [place] # (Auto) 0.1 Eos # (Auto) 0.1 Baso # (Auto) 0.0 Abs Immat Gran (auto) 0.05 H Absolute Neuts (auto) 11.3 H Absolute Nucleated RBC 0.000 Nucleated RBC % (auto) 0.0 Smear Tech's Comments VERIFIED PT INR APTT Anion Gap 12 Estim Creat Clear Calc 58.2 Estimated GFR > 60 Random Glucose 95 Lactic Acid Calcium 9.0 Magnesium 2.0 Total Bilirubin 0.6 Direct Bilirubin 0.2 AST 71 H ALT 35 Alkaline Phosphatase 88 D Troponin I High Sens 26.1 B-Natriuretic Peptide Total Protein 6.9 Albumin 4.1 Lipase Urine Color Urine Appearance Urine pH Ur Specific [place] Urine Protein Urine Glucose (UA) Urine Ketones Urine Blood Urine Nitrite Ur Leukocyte Esterase Coronavirus (PCR) Influenza Type A (PCR) Influenza Type B (PCR) RSV RNA Qual (PCR) 01/25/21 01/25/21 01/25/21 09:37 09:37 09:37 MCV MCH MCHC RDW Plt Count MPV Immature Gran % (Auto) Neut % (Auto) Lymph % (Auto) [place] % (Auto) Eos % (Auto) Baso % (Auto) Lymph # (Auto) [place] # (Auto) Eos # (Auto) Baso # (Auto) Abs Immat Gran (auto) Absolute Neuts (auto) Absolute Nucleated RBC Nucleated RBC % (auto) Smear Tech's Comments PT 28.3 H D INR 2.4 H APTT 45.9 H Anion Gap Estim Creat Clear Calc Estimated GFR Random Glucose Lactic Acid 1.4 Calcium Magnesium Total Bilirubin Direct Bilirubin AST ALT Alkaline Phosphatase Troponin I High Sens B-Natriuretic Peptide 851 H Total Protein Albumin Lipase Urine Color Urine Appearance Urine pH Ur Specific [place] Urine Protein Urine Glucose (UA) Urine Ketones Urine Blood Urine Nitrite Ur Leukocyte Esterase Coronavirus (PCR) Influenza Type A (PCR) Influenza Type B (PCR) RSV RNA Qual (PCR) 01/25/21 01/25/21 01/25/21 09:37 09:37 09:37 MCV MCH MCHC RDW Plt Count MPV Immature Gran % (Auto) Neut % (Auto) Lymph % (Auto) [place] % (Auto) Eos % (Auto) Baso % (Auto) Lymph # (Auto) [place] # (Auto) Eos # (Auto) Baso # (Auto) Abs Immat Gran (auto) Absolute Neuts (auto) Absolute Nucleated RBC Nucleated RBC % (auto) Smear Tech's Comments PT INR APTT Anion Gap Estim Creat Clear Calc Estimated GFR Random Glucose Lactic Acid Calcium Magnesium Total Bilirubin Direct Bilirubin AST ALT Alkaline Phosphatase Troponin I High Sens B-Natriuretic Peptide Total Protein Albumin Lipase 29 Urine Color YELLOW Urine Appearance CLEAR Urine pH 6.0 Ur Specific [place] 1.020 Urine Protein TRACE Urine Glucose (UA) NEG Urine Ketones NEG Urine Blood NEG Urine Nitrite NEG Ur Leukocyte Esterase NEG Coronavirus (PCR) NEGATIVE Influenza Type A (PCR) NEGATIVE Influenza Type B (PCR) NEGATIVE RSV RNA Qual (PCR) NEGATIVE <TONY Plaza - Last Filed: 01/25/21 17:27> Imaging Radiologist's Impressions: Impressions Chest X-Ray 01/25/21 09:11 IMPRESSION: No definite acute parenchymal disease. Chest CTA 01/25/21 11:27 IMPRESSION: No evidence of acute pulmonary artery embolus or thoracic aortic aneurysm or dissection. Changes of centrilobular emphysema as well as some nonspecific central groundglass opacity and bronchial wall thickening and interstitial prominence consistent with some degree of pulmonary vascular congestion. Mediastinal and hilar lymphadenopathy. Cholelithiasis without evidence of acute cholecystitis. Old granulomatous disease. Small bilateral pleural effusions and bibasilar atelectasis. VTE: negative <TONY Plaza - Last Filed: 01/25/21 17:27> Assessment and Plan (1) Acute respiratory failure with hypoxia: Status: Acute <TONY Plaza - Last Filed: 01/25/21 17:27> This is an 85-year-old male with history of atrial fibrillation on Coumadin, hypertension, BPH, diastolic CHF who presents emergency department with episode of chills found to have fever and hypoxia Acute respiratory failure with hypoxia Question secondary to underlying viral infection vs PNA with likely component of CHF CT scan also showing underlying emphysema Covid, Flu negative. -IV doxycycline -supplement oxygen as needed -check respiratory pathogen panel -supportive care Acute on chronic diastolic CHF BNP elevated at 851. CTA showing vascular congestion not on Lasix at home -will start gentle IV diuresis -echocardiogram Atrial fibrillation Appears to be suppressed with amiodarone -Continue amiodarone, metoprolol -continue anticoagulation with Coumadin. INR therapeutic at 2.4 Hypertension Continue Norvasc BPH Continue finasteride Thrombocytopenia Has had thrombocytopenia in the past Follow CBC DVT prophylaxis-Coumadin Code status-DNR/DNI Attending-Dr. garcia <TONY Plaza - Last Filed: 01/25/21 17:27>
[2021-01-25 19:41] LABS: Adenovirus PCR Not Detected (Not Detect.); Bordetella parapertussis PCR Not Detected (Not Detect.); Bordetella pertussis PCR Not Detected (Not Detect.); Chlamydia pneumoniae PCR Not Detected (Not Detect.); Coronavirus 229E PCR Not Detected (Not Detect.); Coronavirus HKU1 PCR Not Detected (Not Detect.); Coronavirus NL63 PCR Not Detected (Not Detect.); Coronavirus OC43 PCR Not Detected (Not Detect.); Human metapneumovirus PCR Not Detected (Not Detect.); Influenza A PCR Not Detected (Not Detect.); Influenza B PCR Not Detected (Not Detect.); Mycoplasma pneumoniae PCR Not Detected (Not Detect.); Parainfluenza 1 PCR Not Detected (Not Detect.); Parainfluenza 2 PCR Not Detected (Not Detect.); Parainfluenza 3 PCR Not Detected (Not Detect.); Parainfluenza 4 PCR Not Detected (Not Detect.); RSV PCR Not Detected (Not Detect.); Rhino/Enterovirus PCR Not Detected (Not Detect.); SARS-CoV-2 PCR Not Detected (Not Detect.)
--- NOTE | 2021-01-25 19:44 | PC.NURSE ---
attempted to give report. rn unavailable. will call back in 10 mintues.
[2021-01-25] MEDS: Furosemide 40 MG/4 ML VIAL IVPUSH (21:23)
[2021-01-25] MEDS: 0.9 % Sodium Chloride Flush 3 ML SYRINGE IVFLUSH (23:50)
[2021-01-26] VITALS (8 sets, daily range): BP systolic 138–167; BP diastolic 64–81; PULSE 56–69; RESP 18–20; TEMP 36.2–36.8; O2SAT 97–100
[2021-01-26 05:28] LABS: Prothrombin Time 23.7 SEC (10.8-13.0)
[2021-01-26 05:33] LABS: Hemoglobin 10.2 g/dl (14.0-18.0); PLT CLUMP 1
[2021-01-26 05:34] LABS: Hematocrit 30.9 % (42-52); Mean Corpuscular Hemoglobin 33.2 pg (27.0-33.0); Mean Corpuscular Volume 100.7 fL (80-98); Mean Platelet Volume 10.8 fL (9.4-12.4); Platelet Count 146 X10*3/uL (160-400); Red Blood Count 3.07 X10*6/uL (4.60-5.80); Red Cell Distribution Width 14.2 % (11.0-16.0); White Blood Count 10.7 X10*3/uL (4.8-10.8)
[2021-01-26 05:43] LABS: Anion Gap 10 (12-20); Blood Urea Nitrogen 21 mg/dL (9-16); Calcium 8.5 mg/dL (8.4-10.2); Carbon Dioxide 32 mmol/L (22-29); Chloride 105 mmol/L (96-108); Creatinine Clr Calc Pharmacy 75.6; Estimated Glomerular Filt Rate > 60; Glucose Random 84 mg/dL (60-115); Potassium 3.3 mmol/L (3.3-5.1); Sodium 144 mmol/L (135-145)
[2021-01-26] MEDS: Doxycycline Hyclate 100 MG in 0.9 % Sodium Chloride 250 ML 166.67 MG IV (06:26)
[2021-01-26] MEDS: Furosemide 40 MG/4 ML VIAL IVPUSH ×2 (08:15→17:21)
[2021-01-26] MEDS: Metoprolol Succinate ER 50 MG TAB.ER.24H PO (08:16)
[2021-01-26] MEDS: Amiodarone HCL 200 MG TABLET PO (08:17)
[2021-01-26] MEDS: amLODIPine Besylate 5 MG TABLET PO (08:18)
[2021-01-26] MEDS: Finasteride 5 MG TABLET PO (08:18)
[2021-01-26] MEDS: 0.9 % Sodium Chloride Flush 3 ML SYRINGE IVFLUSH ×2 (08:19→17:20)
[2021-01-26 08:29] LABS: B Type Natriuretic Peptide 961 pg/mL (<100)
--- NOTE | 2021-01-26 13:35 | HO.PM.IMPN ---
Subjective Subjective Date of Service: 01/26/21 <TONY Plaza - Last Filed: 01/26/21 14:25> 01/26/21 <Estuardo Toth MD - Last Filed: 01/26/21 14:37> Interval History: seen and examined this morning No overnight events, no complaints this morning denies any shortness of breath, cough, fever or chills <TONY Plaza - Last Filed: 01/26/21 14:25> Review of Systems Review of Systems: Yes all other systems are reviewed and are negative <TONY Plaza - Last Filed: 01/26/21 14:25> Constitutional Constitutional: Denies chills and Denies fever(s) <TONY Plaza - Last Filed: 01/26/21 14:25> Cardiovascular Cardiovascular: Denies chest pain <TONY Plaza - Last Filed: 01/26/21 14:25> Respiratory Respiratory: Denies cough <TONY Plaza - Last Filed: 01/26/21 14:25> Gastrointestinal Gastrointestinal: Denies abdominal pain <TONY Plaza - Last Filed: 01/26/21 14:25> Physical Exam Vital Signs: Vital Signs: Last Vital Signs Temp 97.1 F 01/26/21 11:15 Pulse 69 01/26/21 11:15 Resp 19 01/26/21 11:15 BP 138/64 01/26/21 11:15 Pulse Ox 100 01/26/21 11:15 Body Mass Index 29.9 <TONY Plaza - Last Filed: 01/26/21 14:25> Const: Nutritional Appearance: well nourished <TONY Plaza - Last Filed: 01/26/21 14:25> Orientation/consciousness: patient oriented x3 <TONY Plaza - Last Filed: 01/26/21 14:25> HENMT: Head: Yes normocephalic and Yes atraumatic <TONY Plaza - Last Filed: 01/26/21 14:25> Eyes: Sclerae: sclerae normal <TONY Plaza - Last Filed: 01/26/21 14:25> Chest: Chest palpation & inspection: normal inspection of the chest <TONY Plaza - Last Filed: 01/26/21 14:25> Resp: Effort & Inspection: normal respiratory effort and no respiratory distress <TONY Plaza - Last Filed: 01/26/21 14:25> Auscultation: clear to auscultation bilaterally <TONY Plaza - Last Filed: 01/26/21 14:25> Cardio: Rate: regular rate <TONY Plaza - Last Filed: 01/26/21 14:25> Rhythm: regular rhythm <TONY Plaza - Last Filed: 01/26/21 14:25> GI: Palpation (GI): Soft to palpation and nontender <TONY Plaza - Last Filed: 01/26/21 14:25> Neuro: General: patient oriented x3 <TONY Plaza - Last Filed: 01/26/21 14:25> Cranial nerves: Yes CN's II-XII intact bilaterally and Yes Bilaterally intact EOM present <TONY Plaza - Last Filed: 01/26/21 14:25> Extrem: Other: lower extremity edema improving <TONY Plaza Last Filed: 01/26/21 14:25> Objective Data Current Medications Generic Name Dose Route Start Last Admin Trade Name Freq PRN Reason Stop Dose Admin Acetaminophen 650 mg 01/25/21 19:38 Acetaminophen 325 Mg Tablet PO Q6H PRN Pain, Mild (Pain Scale 1-3) Albuterol Sulfate 2.5 mg 01/25/21 19:38 Albuterol Sulfate (0.083%) 2.5 Mg/3 Ml Vial.Neb INHALE Q4H PRN Shortness of Breath Amiodarone HCl 200 mg 01/26/21 09:00 01/26/21 08:17 Amiodarone Hcl 200 Mg Tablet PO 200 mg DAILY LUPE Administration Amlodipine Besylate 5 mg 01/26/21 09:00 01/26/21 08:18 Amlodipine Besylate 5 Mg Tablet PO 5 mg DAILY LUPE Administration Protocol Docusate Sodium 100 mg 01/25/21 19:38 Docusate Sodium 100 Mg Capsule PO DAILY PRN Constipation Finasteride 5 mg 01/26/21 09:00 01/26/21 08:18 Finasteride 5 Mg Tablet PO 5 mg DAILY LUPE Administration Furosemide 40 mg 01/25/21 19:38 01/26/21 08:15 Furosemide 40 Mg/4 Ml Vial IVPUSH 40 mg DAILY LUPE Administration Protocol Doxycycline Hyclate 100 mg/ 250 mls @ 166.67 mls/hr 01/26/21 06:00 01/26/21 08:03 Sodium Chloride IV Infused Q12H LUPE Infusion Metoprolol Succinate 50 mg 01/26/21 09:00 01/26/21 08:16 Metoprolol Succinate Er 50 Mg Tab.Er.24h PO 50 mg DAILY LUPE Administration Protocol Sodium Chloride 3 ml 01/26/21 00:00 01/26/21 08:19 0.9 % Sodium Chloride Flush 3 Ml Syringe IVFLUSH 3 ml QSHIFT LUPE Administration Warfarin Sodium 5 mg 01/26/21 18:00 Warfarin Sodium 5 Mg Tablet PO DAILY@1800 LUPE <TONY Plaza - Last Filed: 01/26/21 14:25> Labs CBC & Chem 7: : 01/26/21 04:30 01/26/21 04:30 <TONY Plaza - Last Filed: 01/26/21 14:25> Microbiology Microbiology Results: Microbiology 01/25/21 09:49 Blood - Venous Blood Culture - Preliminary No growth after 24 hours. 01/25/21 09:36 Blood - Venous Blood Culture - Preliminary No growth after 24 hours. <TONY Plaza - Last Filed: 01/26/21 14:25> Assessment and Plan (1) Acute respiratory failure with hypoxia: Status: Acute <TONY Plaza - Last Filed: 01/26/21 14:25> Assessment and Plan: This is an 85-year-old male with history of atrial fibrillation on Coumadin, hypertension, BPH, diastolic CHF who presents emergency department with episode of chills found to have fever and hypoxia Acute respiratory failure with hypoxia r/t CHF. also with groundglass opacities and emphysema on chest CTA Covid, Flu negative. RPP negative -Continue IV doxycycline (started on 01/25) -supplement oxygen as needed -supportive care -pulmonary consult Acute on chronic diastolic CHF BNP elevated at 851. CTA showing vascular congestion not on Lasix at home -increase Lasix to bid -echocardiogram ordered -follow Is&Os Atrial fibrillation Suppressed with amiodarone -Continue amiodarone, metoprolol -continue anticoagulation with Coumadin. -follow INR Macrocytic -check b12, folate Hypertension Continue Norvasc BPH Continue finasteride Thrombocytopenia Has had thrombocytopenia in the past Follow CBC DVT prophylaxis-Coumadin Code status-DNR/DNI Attending-Dr. garcia <TONY Plaza - Last Filed: 01/26/21 14:25>
--- NOTE | 2021-01-26 13:56 | MHC.CM.PN ---
CM MET WITH PT WHO REPORTS HE LIVES WITH HIS AND IS INDEPENDENT WITH ALL CARE AND MOBILITY. PT DENIES THE USE OF DME OR HOME SERVICES AND REPORTS HE DOES NOT NEED THEM. PT REPORTS HIS PCP IS LILLIAN MORRISON AND STATES HE HAS A HCP NAMING HIS HIS AGENT. COPY REQUESTED IMM DELIVERED CURRENT DC PLAN IS HOME WITH NO SERVICES PT TO ARRANGE TRANSPORT
--- NOTE | 2021-01-26 14:28 | PM.CNCAR ---
History of Present Illness History of Present Illness Date of Service: 01/26/21 Requesting physician: Estuardo Toth Consult reason: congestive heart failure Chief complaint: Respiratory Failure Narrative: I was asked to see Thierry in cardiology consultation today for findings of heart failure on CT scan with pulmonary vascular congestion and interstitial prominence as well as further elevated BNP in the setting of known prior history of heart failure preserved ejection fraction and atrial fibrillation, maintain rhythm on chronic amiodarone therapy. He presented with symptoms of chills and fever and when he came to the hospital he was noted to be highly febrile. Subsequent findings were concerning for possibly lobar pneumonia. Have subsequent CT scan did not show any evidence of lobar infiltrate but shows ground-glass opacity. Cardiology consult was sought for management of his elevated BNP and congestive heart failure. He has been given Lasix 40 mg IV. Has had some diuresis. Currently patient says he is feeling extremely well. Shortness of breath is normalized. He has does not have any fever or chills. Denies any other complaints. Review of Systems Constitutional: Constitutional: Reports chills and Reports fever(s) Cardiovascular: Cardiovascular: Denies chest pain, Denies leg edema, Denies palpitations, Reports dyspnea on exertion and Denies orthopnea Respiratory: Respiratory: Reports no additional respiratory complaints and Reports dyspnea on exertion Gastrointestinal: Gastrointestinal: Reports no additional gastrointestinal complaints Genitourinary: Genitourinary: Reports no additional male genitourinary complaints Musculoskeletal: Musculoskeletal: Reports no additional musculoskeletal complaints Neurologic: Reports system reviewed and no additional complaints, except as documented Psychiatric: Psychiatric: Reports no additional psychiatric complaints Endocrine: Endocrine: Reports no additional endocrine complaints and Denies palpitations Hematologic/Lymphatic: Hematologic/Lymphatic: Reports no additional hematologic/lymphatic complaints [facility] Past Medical History Medical History (HFpEF) heart failure with preserved ejection fraction HTN (hypertension) Paroxysmal atrial fibrillation Family History Family History Father No problems noted. Mother No problems noted. Surgical History Surgical History History of cardioversion Social History Social History Household Members: Spouse Housing: House Do you presently have visiting nurse or other home services: No Alcohol intake: current Alcohol intake frequency: 0-2 drinks per day Smoking Status: Former smoker Use of substances other than those prescribed or required for medical reasons: No Currently Displaying Signs/Symptoms of Drug Intoxication Withdrawal: No Have you been hit, kicked, punched, or otherwise hurt by someone within the past year? If so, by whom?: No Do you feel safe in your current relationship?: Yes Is there a partner from a previous relationship who is making you feel unsafe now?: No Are you made to feel afraid or neglected: No Advance Directives: No Advance Directives Information Provided: No Do you have thoughts of harming others: None Do you have a plan to hurt others: No Plan Recently lost weight without trying: Unsure Nutrition Risks: No Nutritional Risk Poor oral hygiene: No Current occupational status: retired [employer] Allergies Allergy/AdvReac Type Severity Reaction Status Date / Time No Known Allergies Allergy Mild NOT Verified 01/19/21 12:08 APPLICABLE Active Medications: Current Medications Generic Name Dose Route Start Last Admin Trade Name Freq PRN Reason Stop Dose Admin Acetaminophen 650 mg 01/25/21 19:38 Acetaminophen 325 Mg Tablet PO Q6H PRN Pain, Mild (Pain Scale 1-3) Albuterol Sulfate 2.5 mg 01/25/21 19:38 Albuterol Sulfate (0.083%) 2.5 Mg/3 Ml Vial.Neb INHALE Q4H PRN Shortness of Breath Amiodarone HCl 200 mg 01/26/21 09:00 01/26/21 08:17 Amiodarone Hcl 200 Mg Tablet PO 200 mg DAILY [facility] Administration Amlodipine Besylate 5 mg 01/26/21 09:00 01/26/21 08:18 Amlodipine Besylate 5 Mg Tablet PO 5 mg DAILY [facility] Administration Protocol Docusate Sodium 100 mg 01/25/21 19:38 Docusate Sodium 100 Mg Capsule PO DAILY PRN Constipation Finasteride 5 mg 01/26/21 09:00 01/26/21 08:18 Finasteride 5 Mg Tablet PO 5 mg DAILY [facility] Administration Furosemide 40 mg 01/26/21 18:00 Furosemide 40 Mg/4 Ml Vial IVPUSH BID@0900,1800 [facility] Protocol Doxycycline Hyclate 100 mg/ 250 mls @ 166.67 mls/hr 01/26/21 06:00 01/26/21 08:03 Sodium Chloride IV Infused Q12H [facility] Infusion Metoprolol Succinate 50 mg 01/26/21 09:00 01/26/21 08:16 Metoprolol Succinate Er 50 Mg Tab.Er.24h PO 50 mg DAILY [facility] Administration Protocol Sodium Chloride 3 ml 01/26/21 00:00 01/26/21 08:19 0.9 % Sodium Chloride Flush 3 Ml Syringe IVFLUSH 3 ml QSHIFT [facility] Administration Warfarin Sodium 5 mg 01/26/21 18:00 Warfarin Sodium 5 Mg Tablet PO DAILY@1800 [facility] Home Medications Medication Instructions Recorded Confirmed Last Taken Type amlodipine 5 mg tablet 5 mg PO DAILY tab 08/27/20 01/25/21 01/24/21 History finasteride 5 mg tablet 5 mg PO DAILY tab 08/27/20 01/25/21 01/24/21 History warfarin 5 mg tablet 5 mg PO DAILY 08/27/20 01/25/21 01/24/21 History Physical Exam Vital Signs: Vital Signs: Last Vital Signs Temp 97.1 F 01/26/21 11:15 Pulse 69 01/26/21 11:15 Resp 19 01/26/21 11:15 BP 138/64 01/26/21 11:15 Pulse Ox 100 01/26/21 11:15 Body Mass Index 29.9 Const: General: cooperative, comfortable, no acute distress, alert and awake Nutritional Appearance: overweight Orientation/consciousness: patient oriented x3 Limitations: no limitations HENMT: Head: Yes normocephalic and Yes atraumatic Neck: Neck: Yes trachea midline, Yes supple and Yes no JVD Resp: Effort & Inspection: normal respiratory effort Auscultation: clear to auscultation bilaterally, no rales and no wheezes Cardio: Jugular venous distension: no JVD Palpation: normal PMI Rate: regular rate Rhythm: regular rhythm Heart sounds: S1 normal heart sound present, S2 normal heart sound present and Other heart sounds present (S4 present) GI: Auscultation: normal bowel sounds Skin: General skin exam: no rashes or lesions noted Neuro: General: patient oriented x3 and no focal motor deficits Extrem: General: No clubbing, No cyanosis and Yes edema Psych: Appearance: grossly normal Results Labs and Meds Result diagrams: 01/26/21 04:30 01/26/21 04:30 Lab results: Laboratory Results - last 24 hr 01/25/21 01/25/21 01/26/21 16:47 19:20 04:30 WBC 10.7 RBC 3.07 L Hgb 10.2 L Hct 30.9 L MCV 100.7 H MCH 33.2 H MCHC 33.0 RDW 14.2 Plt Count 146 L MPV 10.8 Absolute Nucleated RBC 0.000 Nucleated RBC % (auto) 0.0 PT INR Sodium Potassium Chloride Carbon Dioxide Anion Gap BUN Creatinine Estim Creat Clear Calc Estimated GFR Random Glucose Calcium Troponin I High Sens 41.0 H* D B-Natriuretic Peptide Respiratory Panel [place] See Note Adenovirus (Rapid PCR) Not Detected B.pert (TEM-PCR) Not Detected B.parapertussis DNA PCR Not Detected C. pneumoniae DNA (PCR) Not Detected Coronavirus OC43 (PCR) Not Detected Coronavirus HKU1 (PCR) Not Detected Coronavirus 229E (PCR) Not Detected Coronavirus NL63 (PCR) Not Detected Human Metapneumovir PCR Not Detected Influenza A (RT-PCR) Not Detected Influenza B (RT-PCR) Not Detected M. pneumoniae (PCR) Not Detected Parainfluenza 1 (PCR) Not Detected Parainfluenza 2 (PCR) Not Detected Parainfluenza 3 (PCR) Not Detected Parainfluenza 4 (PCR) Not Detected RSV (PCR) Not Detected Entero/Rhino (PCR) Not Detected SARS-CoV-2 RNA (RT-PCR) Not Detected 01/26/21 01/26/21 01/26/21 04:30 04:30 04:30 WBC RBC Hgb Hct MCV MCH MCHC RDW Plt Count MPV Absolute Nucleated RBC Nucleated RBC % (auto) PT 23.7 H INR 2.0 H Sodium 144 Potassium 3.3 Chloride 105 Carbon Dioxide 32 H Anion Gap 10 L BUN 21 H Creatinine 0.80 Estim Creat Clear Calc 75.6 Estimated GFR > 60 Random Glucose 84 Calcium 8.5 Troponin I High Sens B-Natriuretic Peptide 961 H Respiratory Panel [place] Adenovirus (Rapid PCR) B.pert (TEM-PCR) B.parapertussis DNA PCR C. pneumoniae DNA (PCR) Coronavirus OC43 (PCR) Coronavirus HKU1 (PCR) Coronavirus 229E (PCR) Coronavirus NL63 (PCR) Human Metapneumovir PCR Influenza A (RT-PCR) Influenza B (RT-PCR) M. pneumoniae (PCR) Parainfluenza 1 (PCR) Parainfluenza 2 (PCR) Parainfluenza 3 (PCR) Parainfluenza 4 (PCR) RSV (PCR) Entero/Rhino (PCR) SARS-CoV-2 RNA (RT-PCR) EKG shows sinus rhythm with right bundle-branch block and left anterior fascicular block. Assessment and Plan (1) (HFpEF) heart failure with preserved ejection fraction: Status: Acute Patient presents with hypoxic respiratory failure. Noted to have ground-glass opacities on CT scan also noted to have interstitial prominence and pulmonary vascular congestion. Further elevated BNP. This is suggestive of congestive heart failure. However ground-glass opacities are concerning. Consider pulmonary consultation. For now will hold amiodarone therapy. Continue IV diuresis as BNP is further elevated all the patient is feeling well and does not appear to be significantly fluid overloaded. Will increase Lasix to 40 mg b.i.d.. Trend BMP and BNP. Better blood pressure control needs to be pursued. Increase amlodipine to 10 mg daily. Obtain echocardiogram. (2) Paroxysmal atrial fibrillation: Status: Acute Paroxysmal atrial fibrillation over the last few years has done well with rhythm control approach with no worsening heart failure syndrome till this episode. Given the CT scan finding will obtain pulmonary consultation. Hold amiodarone for now. Continue metoprolol therapy. Continue to better control blood pressure. Continue diuresis as above. Continue warfarin therapy with target INR between 2 and 3. Will follow the patient. Thank you for allowing us to partake in his care Procedures Date of Service Date of Service: 01/26/21
[2021-01-26] MEDS: Doxycycline Hyclate 100 MG in 0.9 % Sodium Chloride 250 ML 167 MG IV (17:20)
[2021-01-26] MEDS: Warfarin Sodium 5 MG TABLET PO (17:22)
[2021-01-27] VITALS: BP 169/74; PULSE 58; RESP 16; TEMP 36.8
[2021-01-27] MEDS: 0.9 % Sodium Chloride Flush 3 ML SYRINGE IVFLUSH ×2 (01:13→09:13)
[2021-01-27 04:00] VITALS: BP 163/83; PULSE 61; RESP 18; TEMP 36.8; O2SAT 90
[2021-01-27] MEDS: Doxycycline Hyclate 100 MG in 0.9 % Sodium Chloride 250 ML 166.67 MG IV (05:13)
[2021-01-27 07:34] LABS: Hematocrit 33.6 % (42-52); Hemoglobin 11.1 g/dl (14.0-18.0); Mean Corpuscular Hemoglobin 32.6 pg (27.0-33.0); Mean Corpuscular Volume 98.8 fL (80-98); Mean Platelet Volume 10.9 fL (9.4-12.4); Platelet Count 166 X10*3/uL (160-400); Red Cell Distribution Width 13.6 % (11.0-16.0); White Blood Count 8.4 X10*3/uL (4.8-10.8)
[2021-01-27 07:39] VITALS: BP 186/85; PULSE 56; RESP 18; TEMP 36.2; O2SAT 93
[2021-01-27 07:39] LABS: INTERNATIONAL NORM RATIO 1.4 (0.9-1.1); Prothrombin Time 16.3 SEC (10.8-13.0)
[2021-01-27 08:10] LABS: Anion Gap 13 (12-20); Blood Urea Nitrogen 18 mg/dL (9-16); Calcium 8.4 mg/dL (8.4-10.2); Carbon Dioxide 30 mmol/L (22-29); Chloride 100 mmol/L (96-108); Creatinine Clr Calc Pharmacy 76.6; Estimated Glomerular Filt Rate > 60; Glucose Random 87 mg/dL (60-115); Potassium 3.1 mmol/L (3.3-5.1); Sodium 140 mmol/L (135-145)
[2021-01-27 09:13] VITALS: BP 152/67; PULSE 62
[2021-01-27] MEDS: Furosemide 40 MG/4 ML VIAL IVPUSH (09:13)
[2021-01-27] MEDS: Metoprolol Succinate ER 50 MG TAB.ER.24H PO (09:13)
[2021-01-27 09:14] VITALS: BP 152/67; PULSE 62
[2021-01-27] MEDS: Amiodarone HCL 200 MG TABLET PO (09:14)
[2021-01-27] MEDS: amLODIPine Besylate 5 MG TABLET PO (09:14)
[2021-01-27] MEDS: Finasteride 5 MG TABLET PO (09:14)
[2021-01-27 10:34] LABS: Folate 4.8 ng/mL (> or = 4.0); Vitamin B12 777 pg/mL (200-900)
--- NOTE | 2021-01-27 10:49 | P.PNCA_ITS ---
Subjective Subjective Date of Service: 01/27/21 Interval history: He states that he is feeling much better. No specific complaints. Shortness of breath is improved. Review of Systems Review of Systems Yes all other systems are reviewed and are negative Cardiovascular: Reports as per HPI, Reports no additional cardiovascular com plaints, Denies acrocyanosis, Denies cool extremities, Denies painful fingertips, Denies chest pain, Denies chest pain at rest, Denies diaphoresis, Denies syncope, Denies irregular heart rhythm, Denies claudication, Denies leg edema, Denies lightheadedness, Denies palpitations and Reports dyspnea Respiratory: Reports dyspnea Denies syncope Endocrine: Denies palpitations Physical Exam Vital Signs: Last Vital Signs Temp 97.2 F 01/27/21 07:39 Pulse 62 01/27/21 09:14 Resp 18 01/27/21 07:39 BP 152/67 H 01/27/21 09:14 Pulse Ox 93 01/27/21 07:39 Body Mass Index 29.9 Const General: cooperative, comfortable and no acute distress Orientation/consciousness: patient oriented x3 HENWY Other: Unremarkable Neck Neck: Yes normal visual inspection Chest Chest palpation & inspection: normal inspection of the chest Resp Auscultation: clear to auscultation bilaterally, no crackles and no wheezes Cardio Jugular venous distension: no JVD Palpation: normal PMI Heart sounds: S1 normal heart sound present, S2 normal heart sound present, no gallops, no murmurs and no rubs GI Palpation (GI): Soft to palpation Back/Spine/Pelvis Other: unremarkable Skin General skin exam: no rashes or lesions noted Neuro General: patient oriented x3 Extrem General: Yes no clubbing, cyanosis or edema Psych Mental Status: mental status grossly normal Results Labs and Meds Result diagrams: 01/27/21 06:09 01/27/21 06:09 Lab results: Laboratory Results - last 24 hr 01/26/21 01/27/21 01/27/21 04:30 06:09 06:09 WBC 8.4 RBC 3.40 L Hgb 11.1 L Hct 33.6 L MCV 98.8 H MCH 32.6 MCHC 33.0 RDW 13.6 Plt Count 166 MPV 10.9 Absolute Nucleated RBC 0.000 Nucleated RBC % (auto) 0.0 PT 16.3 H D INR 1.4 H Sodium Potassium Chloride Carbon Dioxide Anion Gap BUN Creatinine Estim Creat Clear Calc Estimated GFR Random Glucose Calcium Vitamin B12 777 Folate 4.8 01/27/21 06:09 WBC RBC Hgb Hct MCV MCH MCHC RDW Plt Count MPV Absolute Nucleated RBC Nucleated RBC % (auto) PT INR Sodium 140 Potassium 3.1 L Chloride 100 Carbon Dioxide 30 H Anion Gap 13 BUN 18 H Creatinine 0.79 Estim Creat Clear Calc 76.6 Estimated GFR > 60 Random Glucose 87 Calcium 8.4 Vitamin B12 Folate Progress Note: A&P Assessment and plan (1) Paroxysmal atrial fibrillation: Status: Acute (2) Acute on chronic heart failure with preserved ejection fraction: Status: Acute Assessment and Plan: Patient states that he is feeling much improved than on arrival. Clinically, not much volume overload. He is insisting on getting discharge. Hence can change to oral diuretics. Otherwise await pulmonary consultation regarding continuing amiodarone therapy. On hold for now. Continue with anticoagulation. Echocardiogram to be performed either today or as an outpatient based on avail ability. Will arrange followup in the office. Fall Risk Details Current Medications: Current Medications Generic Name Dose Route Start Last Admin Trade Name Freq PRN Reason Stop Dose Admin Acetaminophen 650 mg 01/25/21 19:38 Acetaminophen 325 Mg Tablet PO Q6H PRN Pain, Mild (Pain Scale 1-3) Albuterol Sulfate 2.5 mg 01/25/21 19:38 Albuterol Sulfate (0.083%) 2.5 Mg/3 Ml Vial.Neb INHALE Q4H PRN Shortness of Breath Amiodarone HCl 200 mg 01/26/21 09:00 01/27/21 09:14 Amiodarone Hcl 200 Mg Tablet PO 200 mg DAILY [facility] Administration Amlodipine Besylate 5 mg 01/26/21 09:00 01/27/21 09:14 Amlodipine Besylate 5 Mg Tablet PO 5 mg DAILY [facility] Administration Protocol Docusate Sodium 100 mg 01/25/21 19:38 Docusate Sodium 100 Mg Capsule PO DAILY PRN Constipation Finasteride 5 mg 01/26/21 09:00 01/27/21 09:14 Finasteride 5 Mg Tablet PO 5 mg DAILY [facility] Administration Furosemide 40 mg 01/26/21 18:00 01/27/21 09:13 Furosemide 40 Mg/4 Ml Vial IVPUSH 40 mg BID@0900,1800 [facility] Administration Protocol Doxycycline Hyclate 100 mg/ 250 mls @ 166.67 mls/hr 01/26/21 06:00 01/27/21 07:18 Sodium Chloride IV Infused Q12H [facility] Infusion Ceftriaxone Sodium 1 gm/ 50 mls @ 100 mls/hr 01/27/21 10:45 Sodium Chloride IV Q24H [facility] Metoprolol Succinate 50 mg 01/26/21 09:00 01/27/21 09:13 Metoprolol Succinate Er 50 Mg Tab.Er.24h PO 50 mg DAILY [facility] Administration Protocol Sodium Chloride 3 ml 01/26/21 00:00 01/27/21 09:13 0.9 % Sodium Chloride Flush 3 Ml Syringe IVFLUSH 3 ml QSHIFT [facility] Administration Warfarin Sodium 5 mg 01/26/21 18:00 01/26/21 17:22 Warfarin Sodium 5 Mg Tablet PO 5 mg DAILY@1800 [facility] Administration Time Spent With Patient Time: Total time spent is greater than 50% in coordination of care (as documented) at patient's floor/unit and/or counseling patient: Time with patient: less than 15 minutes Procedures Date of Service Date of Service: 01/27/21
--- NOTE | 2021-01-27 11:26 | MHC.CM.PN ---
Patient has been medically cleared for dc to home today, with services. CM met will Patient, who has chosen [facility]. A referral was made to [facility] and they have been notified of today's dc. Last IMM addressed on 01/26/21.Patient is aware of and in agreement with the dc plan.
[2021-01-27 12:00] VITALS: BP 176/75; PULSE 85; RESP 20; O2SAT 93
[2021-01-27] MEDS: cefTRIAXone sodium 1 GM in 0.9 % Sodium Chloride 50 ML IV (12:11)
--- NOTE | 2021-01-27 14:42 | P.DS_ITS ---
DS: Providers Provider Date of Service: 01/27/21 Date of admission: 01/25/21 16:49 Primary care physician: Unknown Physician Consults: 01/26/21 07:27 Consult to Cardiology Routine Consulting Provider: Eduardo Crook Reason for consultation: chf, delta trop Has provider been notified: No 01/26/21 14:12 Consult to Pulmonology Routine Consulting Provider: Yesica Youssef Reason for consultation: ground glass on CT; on amiodorone ?r/t toxicity Has provider been notified: No DS: Diagnosis Discharge Diagnosis (1) Paroxysmal atrial fibrillation: Status: Acute (2) Acute on chronic heart failure with preserved ejection fraction: Status: Acute (3) Acute respiratory failure with hypoxia: Status: Acute (4) Pneumonia: Status: Acute DS: Medications Discharge Medications Home Medications: Home Medications Medication Instructions Recorded Confirmed amlodipine 5 mg tablet 5 mg PO DAILY tab 08/27/20 01/25/21 finasteride 5 mg tablet 5 mg PO DAILY tab 08/27/20 01/25/21 warfarin 5 mg tablet 5 mg PO DAILY 08/27/20 01/25/21 Previous Rx's Medication Instructions Recorded amiodarone 200 mg tablet 200 mg PO DAILY #90 cap 11/06/20 metoprolol succinate 50 mg 50 mg PO DAILY #30 cap 11/06/20 tablet,extended release 24 hr cefuroxime axetil 500 mg PO BID #10 tab 01/27/21 doxycycline monohydrate 100 mg PO DAILY #10 cap 01/27/21 furosemide 40 mg PO DAILY 30 Days #30 tab 01/27/21 DS: Summary Hospital Course Hospital Course: Admission note HPI This is an 85-year-old male with a history of atrial fibrillation Coumadin, hypertension, BPH who presents to the emergency department after an episode of chills. Yesterday he was in his usual state of health. Today when he woke he reported an episode of chills and 1 small episode of diarrhea. He reports he not feeling right. He denies any shortness of breath, cough, fever, recent sick contacts. He has had no abdominal pain, nausea, vomiting. He was brought to the emergency department for evaluation. On arrival he was febrile with a temperature of 102.5 degrees. He was not tachycardic or tachypneic however his oxygen saturation dropped to 87% on room air.He underwent CTA which showed no evidence of pulmonary embolism. It did show centrilobular emphysema as well as central ground-glass opacity bronchial wall thickening and intersti tial prominence consistent with pulmonary vascular congestion. His BNP was elevated at 851. COVID swab and flu swab were negative. He was treated with IV antibiotics in the decision was made to admit him for further management. Patient reports that his symptoms have completely resolved at this time. Hospital course The patient was evaluated and treated for acute hypoxic respiratory failure whi ch was thought to be a result of pneumonia given the patient presentation fever and abnormal CTA showing ground-glass opacities. Respiratory panel came back negative for viral infections. He was treated with IV doxycycline and ceftriaxone for possible pneumonia with good response as he was weaned off the oxygen was able to ambulate freely on room air with negative blood cultures. Evaluated by pulmonology for possible amiodarone induced lung pathology. Dr. Klein does not think the changes are related to amiodarone and recommended to continue the medication. Has been treated as well for acute on chronic diastolic CHF with IV Lasix. Evaluated by Cardiology who recommended to follow-up as outpatient and to do the echo thin. Discharged home on doxycycline and Ceftin with starting of Lasix as well. To follow-up as outpatient with Cardiology and pulmonology To recheck INR on Wednesday or Wednesday this week. Time Spent with Patient Time attestation: Total time spent providing and/or coordinating discharge services: Discharge coordination time: Greater than 30 minutes Quality: Stroke Does the patient have a stroke diagnosis?: No Physical Exam Vital Signs: Vital Signs: Last Vital Signs Temp 97.2 F 01/27/21 07:39 Pulse 85 01/27/21 12:00 Resp 20 01/27/21 12:00 BP 176/75 H 01/27/21 12:00 Pulse Ox 93 01/27/21 12:00 Body Mass Index 29.9 Const: Other: Constitutional : Alert, oriented, not in distress Neck : Normal inspection, Supple Cardiovascular : RRR, S1 S2, no lower extremity edema Respiratory : Fair bilateral air entry, no crackles, wheezes or rhonchi Gastrointestinal: soft, lax, Normal bowel sounds, Non tender Skin : Warm/Dry, No rash Neurological : Alert & oriented x3, No focal deficit DS: Data Data Completed and Pending Labs on day of discharge: Laboratory Results - last 24 hr 01/26/21 01/27/21 01/27/21 04:30 06:09 06:09 WBC 8.4 RBC 3.40 L Hgb 11.1 L Hct 33.6 L MCV 98.8 H MCH 32.6 MCHC 33.0 RDW 13.6 Plt Count 166 MPV 10.9 Absolute Nucleated RBC 0.000 Nucleated RBC % (auto) 0.0 PT 16.3 H D INR 1.4 H Sodium Potassium Chloride Carbon Dioxide Anion Gap BUN Creatinine Estim Creat Clear Calc Estimated GFR Random Glucose Calcium Vitamin B12 777 Folate 4.8 01/27/21 06:09 WBC RBC Hgb Hct MCV MCH MCHC RDW Plt Count MPV Absolute Nucleated RBC Nucleated RBC % (auto) PT INR Sodium 140 Potassium 3.1 L Chloride 100 Carbon Dioxide 30 H Anion Gap 13 BUN 18 H Creatinine 0.79 Estim Creat Clear Calc 76.6 Estimated GFR > 60 Random Glucose 87 Calcium 8.4 Vitamin B12 Folate Preliminary micro results at discharge 01/25/21 09:49 Blood Culture - Preliminary Blood - Venous No growth after 48 hours. 01/25/21 09:36 Blood Culture - Preliminary Blood - Venous No growth after 48 hours. Discharge Plan Discharge Patient Disposition: Home Health Service Discharge Diagnosis: Heart failure exacerbation Pneumonia Referrals: [facility] [Outside] - 1 Week Physician,Unknown [Primary Care Provider] - 1 Week Discharge Medications: New furosemide 40 mg tablet 40 mg PO DAILY 30 Days Qty: 30 RF: 0 doxycycline monohydrate 100 mg capsule 100 mg PO DAILY Qty: 10 RF: 0 cefuroxime axetil 500 mg tablet 500 mg PO BID Qty: 10 RF: 0 Continued amiodarone 200 mg tablet 200 mg PO DAILY Qty: 90 RF: 0 metoprolol succinate 50 mg tablet extended release 24 hr 50 mg PO DAILY Qty: 30 RF: 1 amlodipine 5 mg tablet 5 mg PO DAILY RF: 0 warfarin 5 mg tablet 5 mg PO DAILY RF: 0 finasteride 5 mg tablet 5 mg PO DAILY RF: 0 Discharge Orders: Discharge Order (Routine); Ordered 01/27/21 Ordered By: Estuardo Toth Diet: advance to usual diet and low salt diet Activity on Discharge: As tolerated Stand Alone Forms: Patient Portal Discharge page Other Ambulatory Orders: Basic Metabolic Panel (Routine) Timeframe: 1 Week Facility: [facility] - Location: Laboratory Ordered By: Estuardo Toth Care Plan Goals: Read below Health Concerns: Read below Plan of Treatment: You were admitted to the hospital for evaluation of fever and difficulty breathing. Images of your chest were concerning for fluid overload and pneumo riley. You were treated with IV antibiotics and water pills with good response over the course of hospital stay. Evaluated by glove brusher and hotel superintendent who recommended to continue treatment as outpatient with close monitoring and follow-up. Assessment: Continue Lasix 40 mg daily Continue doxycycline and Ceftin as prescribed for 5 more days To follow-up with Dr. Crook as outpatient for cardiology To follow-up with Dr. Klein from pulmonology as outpatient Will repeat blood test next week. Discharge Date/Time: 01/27/21 13:45
--- NOTE | 2021-01-27 15:21 | PM.CNPUL ---
History of Present Illness History of Present Illness Consult date: 01/27/21 Chief complaint: Respiratory Failure Narrative: This is an 85-year-old male with a history of atrial fibrillation Coumadin, hypertension, BPH who presents to the emergency department after an episode of chills. Yesterday he was in his usual state of health. Today when he woke he reported an episode of chills and 1 small episode of diarrhea. He reports he not feeling right. He denies any shortness of breath, cough, fever, recent sick contacts. He has had no abdominal pain, nausea, vomiting. He was brought to the emergency department for evaluation. On arrival he was febrile with a temperature of 102.5 degrees. He was not tachycardic or tachypneic however his oxygen saturation dropped to 87% on room air.He underwent CTA which showed no evidence of pulmonary embolism. It did show centrilobular emphysema as well as central ground-glass opacity bronchial wall thickening and interstitial prominence consistent with pulmonary vascular congestion. His BNP was elevated at 851. COVID swab and flu swab were negative. He was treated with IV antibiotics in the decision was made to admit him for further management. Patient reports that his symptoms have completely resolved at this time. The patient was evaluated and treated for acute hypoxic respiratory failure which was thought to be a result of pneumonia given the patient presentation fever and abnormal CTA showing ground-glass opacities. Respiratory panel came back negative for viral infections. He was treated with IV doxycycline and ceftriaxone for possible pneumonia with good response as he was weaned off the oxygen was able to ambulate freely on room air with negative blood cultures. Review of Systems Constitutional: Constitutional: Reports fever(s), Reports malaise and Denies night sweats ENT: Denies change in voice, Denies lip swelling, Denies mouth pain, Reports nasal congestion, Reports nasal discharge and Denies tongue swelling Cardiovascular: Cardiovascular: Denies chest pain and Reports dyspnea Respiratory: Respiratory: Reports cough and Reports dyspnea Gastrointestinal: Gastrointestinal: Denies abdominal pain Musculoskeletal: Musculoskeletal: Denies no additional musculoskeletal complaints Neurologic: Denies Neuro-related abnormal movements Psychiatric: Psychiatric: Denies no additional psychiatric complaints Hematologic/Lymphatic: Hematologic/Lymphatic: Denies easy bleeding and Denies lymphadenopathy Allergic/Immunologic: Allergic/Immunologic: Denies lip swelling and Denies tongue swelling [facility] Past Medical History Medical History (Updated 01/27/21 @ 15:22 by Rashard Klein MD) (HFpEF) heart failure with preserved ejection fraction HTN (hypertension) Paroxysmal atrial fibrillation Pleural effusion Family History Family History Father No problems noted. Mother No problems noted. Surgical History Surgical History History of cardioversion Social History Social History Household Members: Spouse Housing: House Do you presently have visiting nurse or other home services: No Alcohol intake: current Alcohol intake frequency: 0-2 drinks per day Smoking Status: Former smoker Current occupational status: retired [employer] Allergies Allergy/AdvReac Type Severity Reaction Status Date / Time No Known Allergies Allergy Mild NOT Verified 01/19/21 12:08 APPLICABLE Home Medications Medication Instructions Recorded Confirmed Last Taken Type amlodipine 5 mg tablet 5 mg PO DAILY tab 08/27/20 01/25/21 01/24/21 History finasteride 5 mg tablet 5 mg PO DAILY tab 08/27/20 01/25/21 01/24/21 History warfarin 5 mg tablet 5 mg PO DAILY 08/27/20 01/25/21 01/24/21 History Physical Exam Vital Signs: Vital Signs: Last Vital Signs Temp 97.2 F 01/27/21 07:39 Pulse 85 01/27/21 12:00 Resp 20 01/27/21 12:00 BP 176/75 H 01/27/21 12:00 Pulse Ox 93 01/27/21 12:00 Body Mass Index 29.9 Const: General: alert Eyes: Pupils: Equal, round and reactive pupils present Neck: Neck: Yes normal visual inspection, Yes full ROM and Yes no lymphadenopathy Chest: Chest palpation & inspection: normal inspection of the chest Resp: Auscultation: diminished lung sounds Cardio: Rate: regular rate Rhythm: regular rhythm Heart sounds: S1 normal heart sound present and S2 normal heart sound present GI: Palpation (GI): Soft to palpation and nontender Auscultation: normal bowel sounds Skin: General skin exam: rashes and/or lesions noted Neuro: Cranial nerves: Yes Equal, round and reactive pupils present Results Laboratory Findings CBC and BMP: 01/27/21 06:09 01/27/21 06:09 ABG, PT/INR, D-dimer: PT/INR, D-dimer PT 16.3 SEC (10.8-13.0) H D 01/27/21 06:09 INR 1.4 (0.9-1.1) H 01/27/21 06:09 Abnormal lab findings: Abnormal Labs 01/25/21 01/25/21 01/25/21 09:37 09:37 09:37 WBC 11.6 H RBC 3.46 L Hgb 11.5 L Hct 34.9 L MCV 100.9 H MCH 33.2 H Plt Count 148 L D Neut % (Auto) 97.7 H Lymph % (Auto) 0.9 L [place] % (Auto) 0.5 L Lymph # (Auto) 0.1 L Abs Immat Gran (auto) 0.05 H Absolute Neuts (auto) 11.3 H PT 28.3 H D INR 2.4 H APTT 45.9 H Potassium Chloride 109 H Carbon Dioxide Anion Gap BUN 26 H D AST 71 H Troponin I High Sens B-Natriuretic Peptide 01/25/21 01/25/21 01/26/21 09:37 16:47 04:30 WBC RBC 3.07 L Hgb 10.2 L Hct 30.9 L MCV 100.7 H MCH 33.2 H Plt Count 146 L Neut % (Auto) Lymph % (Auto) [place] % (Auto) Lymph # (Auto) Abs Immat Gran (auto) Absolute Neuts (auto) PT INR APTT Potassium Chloride Carbon Dioxide Anion Gap BUN AST Troponin I High Sens 41.0 H* D B-Natriuretic Peptide 851 H 01/26/21 01/26/21 01/26/21 04:30 04:30 04:30 WBC RBC Hgb Hct MCV MCH Plt Count Neut % (Auto) Lymph % (Auto) [place] % (Auto) Lymph # (Auto) Abs Immat Gran (auto) Absolute Neuts (auto) PT 23.7 H INR 2.0 H APTT Potassium Chloride Carbon Dioxide 32 H Anion Gap 10 L BUN 21 H AST Troponin I High Sens B-Natriuretic Peptide 961 H 01/27/21 01/27/21 01/27/21 06:09 06:09 06:09 WBC RBC 3.40 L Hgb 11.1 L Hct 33.6 L MCV 98.8 H MCH Plt Count Neut % (Auto) Lymph % (Auto) [place] % (Auto) Lymph # (Auto) Abs Immat Gran (auto) Absolute Neuts (auto) PT 16.3 H D INR 1.4 H APTT Potassium 3.1 L Chloride Carbon Dioxide 30 H Anion Gap BUN 18 H AST Troponin I High Sens B-Natriuretic Peptide Microbiology: Microbiology 01/25/21 09:49 Blood - Venous Blood Culture - Preliminary No growth after 48 hours. 01/25/21 09:36 Blood - Venous Blood Culture - Preliminary No growth after 48 hours. Assessment and Plan (1) Acute respiratory failure with hypoxia: Status: Acute (2) Acute on chronic heart failure with preserved ejection fraction: Status: Acute (3) Pneumonia: Qualifiers: Laterality: unspecified laterality Lung location: unspecified part of lung Pneumonia type: due to unspecified organism Qualified Code(s): J18.9 - Pneumonia, unspecified organism Status: Acute (4) Pleural effusion: Status: Acute Currently the patient is doing lot better at this time. He did have fevers and had transient symptoms that now have resolved. No evidence of any amiodarone induced pulmonary toxicity. Recommendations: Continue with amiodarone 200 mg daily Complete course of antibiotics to treat a lower respiratory infection Diuresis as tolerated Follow-up pulmonary as an outpatient Procedures Date of Service Date of Service: 01/27/21
== END 2021-01-27 13:45 | disposition home health service (06) | DRG 291 ==
LOC: HO.ED 14:46 → HO.EDOVER 17:36 → HO.IMC 19:32
PROVIDERS: Physician Assistant; Admitting Provider Physician Assistant Medical; Emergency Provider Emergency Medicine; Visit Provider Student in an Organized Health Care Education/Training Program
DX: I11.0 Hypertensive heart disease with heart failure (principal); J18.9 Pneumonia, unspecified organism; J96.01 Acute respiratory failure with hypoxia; I48.0 Paroxysmal atrial fibrillation; I50.33 Acute on chronic diastolic (congestive) heart failure; D69.6 Thrombocytopenia, unspecified; N40.0 Benign prostatic hyperplasia without lower urinary tract symptoms; Z20.822 Contact with and (suspected) exposure to COVID-19; Z79.01 Long term (current) use of anticoagulants; Z79.899 Other long term (current) drug therapy
CPT/HCPCS: 0241U; 36415; 71045; 71275; 80048; 80076; 81003; 82607; 82746; 83605; 83690; 83735; 83880; 84484; 85025; 85027; 85610; 85730; 87040; 87633; 93005; 96365; 96366; 96367; 99285; J0696; J1940; Q9967

== ENCOUNTER 2021-01-28 09:55 | Outpatient (REF) | payer MEDICARE, SELFPAY ==
--- NOTE | ~2021-01-28 | XR_ITS ---
EXAMINATION: XR HIP, LEFT CLINICAL INFORMATION: Hip pain. COMPARISON: 09/15/2007 TECHNIQUE: AP pelvis and 2 views of the left hip. FINDINGS: AP film of the pelvis demonstrates the patient to be status post bilateral total hip arthroplasty. The femoral and acetabular prosthetic components appear in normal position. No definite evidence of loosening is seen. There are vascular calcifications present. 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 No widening or fusion of the sacroiliac joints is identified. 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 Two views of the left hip do not demonstrate any fracture of the hardware of the left total hip arthroplasty. No dislocation is seen. No evidence of prosthetic loosening. There is some hypertrophic bone seen in the postsurgical site. XR/XR hip LT w PEL1V IMPRESSION: Status post bilateral total hip arthroplasty. No definite acute fracture or diastasis of the pelvis, and no significant abnormality of the left hip prosthetic components is identified.
== END 2021-01-28 09:56 | disposition home or self-care (01) ==
LOC: HO.HOSX 09:55
PROVIDERS: Visit Provider Physician Assistant
DX: M70.62 Trochanteric bursitis, left hip (principal); M25.552 Pain in left hip; I11.0 Hypertensive heart disease with heart failure; I50.30 Unspecified diastolic (congestive) heart failure; I48.0 Paroxysmal atrial fibrillation; Z96.643 Presence of artificial hip joint, bilateral; Z98.890 Other specified postprocedural states
CPT/HCPCS: 73502; 99202

== ENCOUNTER → 2021-02-06 11:09 | Outpatient (REF) | payer MEDICARE, SELFPAY ==
--- NOTE | 2021-02-06 11:12 | CA_ITS ---
Transthoracic Echocardiogram Patient (Last, First, Middle): Thierry Edwards K Gender: Male Date of : 1935 Age: 85 Procedure Date: 02/06/2021 Procedure Type: Transthoracic Echocardiogram Location: OP Height: 175.26 cm Weight: 92.08 kg BSA: 2.08 m2 Heart Rate: bpm BP: 140 / 68 mmHg Screw Down: Saima MD: Joe Puente MD Pharmacovigilance Specialist: Eduardo Crook MD Symptoms: I50.33 - Acute on chronic diastolic (congestive) heart fa... Study Quality: Good ECG Rhythm: Sinus Conclusions: - 1. Normal LV systolic function with mild LVH with grade 3 diastolic dysfunction 2. 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 Mild aortic regurgitation 4. Moderately elevated right ventricular systolic pressure 5. No gross pericardial effusion Findings Left Ventricle Normal left ventricular size and systolic function. There is mildly increased left ventricular wall thickness. The visually estimated ejection fraction is between 60-65%. Spectral Doppler is indicative of a restrictive filling pattern. E/E prime ratio is >15, consistent with elevated filling pressures. Evidence suggests grade III (severe) diastolic dysfunction. Right Ventricle Mildly increased right ventricular cavity size. There is normal right ventricular systolic function. Atria The left atrium is severely dilated. Interatrial shunt cannot be excluded. Small a wave on mitral inflow suggestive atrial myopathy. The right atrium is moderately dilated. Aortic Valve There is mild calcification of the aortic valve. There is no aortic valve stenosis. There is mild aortic valve regurgitation. Mitral Valve There is mild anterior and moderate posterior mitral leaflet thickening. There is moderate mitral annular calcification. There is trace mitral valve regurgitation. There is no mitral valve stenosis. Pulmonic Valve The pulmonic valve was not well visualized. Tricuspid Valve Likely normal tricuspid valve structure and function. There is mild tricuspid valve regurgitation. Mildly elevated right atrial pressure. Moderate pulmonary hypertension is present. Great Vessels All visible segments of the aorta are normal in size. The pulmonary artery was not well visualized. Venous The inferior vena cava is mildly dilated and collapses less than 50% with inspiration. Pericardium/Pleural There is no evidence of pericardial effusion. Prior Study Comparison Changes noted compared to prior study dated: 10/08/2017. RV systolic pressure is increased. LV diastolic function is grade 3. Left atrium is severely dilated Measurements 2D Linear Measurements RVIDd: 4.20 RVIDd Index: 2.02 IVSd: 1.32 0.6-0.9/0.6-1.0 cm LVIDd: 5.35 3.9-5.3/4.2-5.9 cm LVIDd Index: 2.57 2.4-3.2/2.2-3.1 cm/m2 LVIDs: 3.38 2.0-3.6 cm LVPWd: 1.23 0.7-1.1 cm Ao Root: 3.80 2.1-3.5 cm LA Diam: 5.10 2.7-3.8/3.0-4.0 cm LAIDs Index: 2.45 1.5-2.3 cm/m2 LV Mass: 369.24 67-162/88-224 g LV Mass Index: 177.52 43-95/49-115 g/m2 LVOT Diam: 2.20 3.0+(-)1.3 cm 2D Systolic Function EF 4C: 63.20 >55% EF 2C: 68.80 >55% EF BiP: 66.00 >55% Mitral Valve MV Pk E: 1.31 MV PK A: 0.26 MV Decel Time: 276.00 E/A: 5.00 E'Lateral: 8.81 E'Medial: 5.77 E/E' Med: 22.70 E/E' Lat: 14.90 Aortic Valve AoV Pk [place]: 1.91 AoV Mn [place]: 1.18 AoV VTI: 0.40 AoV Pk Grad: 15.00 Aov Mn Grad: 7.00 BO Cont.VTI: 2.46 LVOT LVOT Pk [place]: 1.12 LVOT Mn [place]: 0.78 LVOT VTI: 0.26 LVOT Pk Grad: 5.00 LVOT Mn Grad: 3.00 LVOT Diam: 2.20 LVOT Area: 3.80 Diastolic Function MV Pk E: 1.31 MV Pk A: 0.26 E/A: 5.00 E'Medial: 5.77 E/E' Med: 22.70 E' Laterial: 8.81 E/E' Lat: 14.90 Tricuspid Valve TR Pk [place]: 3.38 TR Pk Grad: 46.00 RA Press: 8.00 RVSP: 54.00 Great Vessels Aorta Ao Root-2D: 3.80 2.0-3.7 cm Ao Asc: 3.90 2.1-3.4 cm Ao Arch: 3.20 Updated in Other Vendor System with Status of Final Eduardo Crook MD electronically signed on 02/07/2021 1:32:13 PM with status of Final
== END ==
LOC: HO.CARD 11:09
PROVIDERS: Visit Provider Internal Medicine Cardiovascular Disease
DX: I50.33 Acute on chronic diastolic (congestive) heart failure (principal); I48.0 Paroxysmal atrial fibrillation
CPT/HCPCS: 93306

== ENCOUNTER → 2021-02-10 13:11 | Outpatient (BNVA) | payer MEDICARE, SELFPAY | PROVIDERS: PCP Internal Medicine; Visit Provider Hospitalist | DX: J90 Pleural effusion, not elsewhere classified (principal); J18.9 Pneumonia, unspecified organism | CPT/HCPCS: 99212 ==

== ENCOUNTER 2021-02-14 15:57 | Outpatient (REF) | payer SELFPAY | END 2021-02-14 15:58 | disposition home or self-care (01) | LOC: HO.HAP 15:57 | PROVIDERS: Visit Provider Internal Medicine | DX: Z46.1 Encounter for fitting and adjustment of hearing aid (principal) | CPT/HCPCS: V5266; V5267 ==

== ENCOUNTER 2021-03-04 11:06 | Outpatient (REF) | payer MEDICARE, SELFPAY ==
[2021-03-04 13:50] LABS: INTERNATIONAL NORM RATIO 3.2 (0.9-1.1)
== END 2021-03-04 11:07 | disposition home or self-care (01) ==
LOC: HO.10HDL 11:06
PROVIDERS: PCP Internal Medicine; Visit Provider Internal Medicine
DX: I48.91 Unspecified atrial fibrillation (principal)
CPT/HCPCS: 36415; 85610

== ENCOUNTER 2021-03-26 12:01 | Outpatient (REF) | payer MEDICARE, SELFPAY ==
[2021-03-26 13:43] LABS: INTERNATIONAL NORM RATIO 2.6 (0.9-1.1)
== END 2021-03-26 12:02 | disposition home or self-care (01) ==
LOC: HO.10HDL 12:01
PROVIDERS: PCP Internal Medicine; Visit Provider Internal Medicine
DX: I48.91 Unspecified atrial fibrillation (principal)
CPT/HCPCS: 36415; 85610

== ENCOUNTER 2021-04-12 11:27 | Inpatient (IN) | payer MEDICARE, SELFPAY ==
--- NOTE | ~2021-04-12 | CT_ITS ---
EXAMINATION: CT CERVICAL SPINE CLINICAL INFORMATION: Trauma COMPARISON: No prior CT available, TECHNIQUE: Computed axial sagittal and coronal images acquired using department's standard protocol. This CT examination was performed using dose optimization techniques as appropriate, variously including the following: *Automated exposure control *Adjustment of mA and/or kV according to patient size (this includes techniques or standardized protocols for targeted exams where dose is matched to indication/reason for exam; i.e. extremities or head) *Use of iterative reconstruction technique CONTRAST: None DLP: 1511 mGy-cm FINDINGS: SKULL BASE: Visualized structures at skull base are normal, Included facial sinuses are clear, CERVICAL VERTEBRAE: Seven cervical vertebrae identified maintaining proper height and alignment, DISCS: Loss of disc space and developed osteophyte from the edges of endplates at all levels especially at C5-C6 suggests underlying diffuse degenerative disc disease. C1-C2: There is no CT evidence of significant osseous narrowing of the central canal or neural foramen. C2-C3: There is degenerative disc disease, facet joints arthropathy, no fracture, no central or foraminal stenosis. C3-C4: There is degenerative disc disease, facet joints arthropathy, no fracture, no central or foraminal stenosis. C4-C5: Degenerative disc disease and developed osteophyte from articular edges cause mild central and bilateral foraminal stenosis. No fracture. C5-C6: Degenerative disc disease, osteophyte ridges and facet joints arthropathy cause central and foraminal stenosis. No fracture. C6-C7: There is no CT evidence of significant osseous narrowing of the central canal or neural foramen. C7-T1: There is no CT evidence of significant osseous narrowing of the central canal or neural foramen. PARAVERTEBRAL SOFT TISSUE: Paravertebral soft tissues unremarkable. CT/CT cervical spine wo con IMPRESSION: 1. No CT evidence of acute fracture. 2. Early advanced degenerative disc disease at all levels especially at C5-C6. 3. Developed osteophyte ridges from the endplates and facet joints arthropathy cause narrowing of the central canal and neural foramen bilaterally at C4-C5 and C5-C6. If patient has neurological symptoms may consider correlation with MRI.
--- NOTE | ~2021-04-12 | XR_ITS ---
EXAMINATION: 1. RADIOGRAPHS BILATERAL HIPS 2. RADIOGRAPHS SACRUM/COCCYX CLINICAL INFORMATION: Pain after trauma COMPARISON: Left hip x-rays January 28, 2021 (including frontal pelvis) TECHNIQUE: 2 views of each hip, frontal view of the pelvis and 2 views of the sacrum/coccyx were obtained. FINDINGS: The pelvic ring is intact. Sacroiliac joints are symmetric. No gross fracture of the sacrum or coccyx. Penile implants noted. Vascular calcifications of the pelvis. Visualized portions of the inferior lumbar spine demonstrate degenerative changes. Bilateral total hip arthroplasties are noted. Each femoral component is well-seated within its corresponding acetabular component. No periprosthetic fracture identified bilaterally. XR/XR sacrum coccyx min 2V IMPRESSION: -No fracture of the sacrum or coccyx. -Bilateral hip implants noted without dislocation or periprosthetic fracture.
--- NOTE | ~2021-04-12 | CT_ITS ---
CT head/brain wo con CLINICAL INFORMATION: Reason for Exam trauma COMPARISON: No prior CT scan available for comparison. TECHNIQUE: Department standard protocol. This CT examination was performed using dose optimization techniques as appropriate, variously including the following: *Automated exposure control *Adjustment of mA and/or kV according to patient size (this includes techniques or standardized protocols for targeted exams where dose is matched to indication/reason for exam; i.e. extremities or head) *Use of iterative reconstruction technique DLP: 806 mGy-cm FINDINGS: CEREBRAL HEMISPHERES: There is no evidence of intra-axial or extra-axial mass, hemorrhage or acute infarct. 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 BASAL GANGLIA AND PINEAL GLAND: Unremarkable VENTRICLES: Symmetric and normal in size. CEREBELLUM AND BRAINSTEM: No space-occupying mass, hemorrhage or acute infarct. CEREBELLOPONTINE ANGLES: No lesion found. ORBITS: No intraorbital mass. VESSELS: Unremarkable SKULL BASE: Unremarkable INCLUDED SINUSES AT SKULL BASE: Clear SKULL AND SKIN: No fracture or bone lesion found. 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 No intracranial bleed. No skull fracture.
--- NOTE | ~2021-04-12 | XR_ITS ---
EXAMINATION: 1. RADIOGRAPHS BILATERAL HIPS 2. RADIOGRAPHS SACRUM/COCCYX CLINICAL INFORMATION: Pain after trauma COMPARISON: Left hip x-rays January 28, 2021 (including frontal pelvis) TECHNIQUE: 2 views of each hip, frontal view of the pelvis and 2 views of the sacrum/coccyx were obtained. FINDINGS: The pelvic ring is intact. Sacroiliac joints are symmetric. No gross fracture of the sacrum or coccyx. Penile implants noted. Vascular calcifications of the pelvis. Visualized portions of the inferior lumbar spine demonstrate degenerative changes. Bilateral total hip arthroplasties are noted. Each femoral component is well-seated within its corresponding acetabular component. No periprosthetic fracture identified bilaterally. XR/XR hips HAMLET min 3V IMPRESSION: -No fracture of the sacrum or coccyx. -Bilateral hip implants noted without dislocation or periprosthetic fracture.
--- NOTE | ~2021-04-12 | CT_ITS ---
EXAM: CT scan of the chest, abdomen, and pelvis. INDICATION: Trauma COMPARISON: CTA chest January 25, [address] March 05, 2010 TECHNIQUE: Multidetector helical imaging of the chest, abdomen, and pelvis was obtained from the thoracic inlet through the pubic symphysis. Coronal and sagittal reformatted images that were obtained were also reviewed. Evaluation of pelvis is limited secondary to streak artifact from bilateral hip prostheses. DLP: 1374 mGy-cm FINDINGS: CHEST: Central airways are patent. Lungs are well aerated. Mild emphysematous changes are present. There is mild lingular and dependent atelectasis. No lobar consolidation. No pleural effusion or pneumothorax. A few tiny 1 to 2 mm pulmonary nodules are again identified. No new suspicious pulmonary nodules visualized. Interval resolution of previously present tiny bilateral pleural effusions. The heart is enlarged. Coronary artery calcifications are present. There is no pericardial effusion. Similar dilatation of the ascending aorta measuring up to 4.5 cm in maximum dimension. A few scattered mildly enlarged mediastinal lymph nodes appear stable from January. No enlarged axillary lymph nodes appreciated. ABDOMEN/PELVIS: The liver is normal in size but demonstrates diffusely decreased attenuation. Gallstones are noted within an otherwise unremarkable appearing gallbladder. Pancreas is unremarkable. Lobulated splenic contour with possible 2.7 cm mass along the superior splenic margin, however, appearance is similar to February 2010 imaging and therefore likely of no clinical concern. There is mild hypertrophy of both adrenal glands. Symmetrically sized kidneys without renal calculi or hydronephrosis. A few subcentimeter renal lesions are too small to accurately characterize. Tiny hiatal hernia. The stomach is decompressed. Normal caliber loops of small and large bowel. Tiny fat-containing umbilical hernia. Nonaneurysmal abdominal aorta. No retroperitoneal lymphadenopathy. Evaluation of pelvis is limited secondary to streak artifact from bilateral hip prostheses. The bladder is grossly unremarkable. The prostate gland is at the upper limits of normal in size. Partially visualized penile prostheses. Large fat-containing left inguinal hernia. No gross inguinal lymphadenopathy. OSSEOUS STRUCTURES Diffuse osteopenia. Partially visualized bilateral hip prostheses. Moderate to severe diffuse degenerative changes of the spine. Mild anterolisthesis of L4 and L5. CT/CT abdomen pelvis wo con IMPRESSION: 1. No CT evidence for acute abnormality within the chest, abdomen or pelvis. 2. Mild emphysema. 3. Similar dilatation of the ascending aorta measuring up to 4.5 cm in maximum dimension. 4. Cholelithiasis. This CT examination was performed using dose optimization techniques as appropriate, variously including the following: *Automated exposure control *Adjustment of mA and/or kV according to patient size (this includes techniques or standardized protocols for targeted exams where dose is matched to indication/reason for exam; i.e. extremities or head) *Use of iterative reconstruction technique
[2021-04-12 11:31] VITALS: BP 163/80; PULSE 103; RESP 16; TEMP 36.6; O2SAT 95; BMI 27.1
--- NOTE | 2021-04-12 11:38 | ECG_ITS ---
Test Reason : GENERAL MEDICINE Blood Pressure : / mmHG Vent. Rate : 087 BPM Atrial Rate : 088 BPM P-R Int : 104 ms QRS Dur : 166 ms QT Int : 490 ms P-R-T Axes : 000 077 -47 degrees QTc Int : 589 ms Sinus rhythm with short MN Right bundle branch block Septal infarct (cited on or before 28-JAN-2018) Inferior infarct (cited on or before 28-JAN-2018) Abnormal ECG When compared with ECG of 25-JAN-2021 09:41, No significant changes seen Referred By: Haily Perez Electronically Signed By:Raj Mendez
[2021-04-12] MEDS: 0.9 % Sodium Chloride 1,000 ML 999 ML IV (12:01)
[2021-04-12 12:06] LABS: MANUAL DIFF FLAG NO
--- NOTE | 2021-04-12 12:06 | ED.GENADULT ---
HPI - General Adult General Chief complaint: General Medical <Haily Perez NP - Last Filed: 04/12/21 19:12> Stated complaint: fall <Haily Perez NP - Last Filed: 04/12/21 19:12> Time Seen by Provider: 04/12/21 11:29 <Haily Perez NP - Last Filed: 04/12/21 19:12> Source: EMS <Haily Perez NP - Last Filed: 04/12/21 19:12> Mode of arrival: EMS <Haily Perez NP - Last Filed: 04/12/21 19:12> Limitations: no limitations <Haily Perez NP - Last Filed: 04/12/21 19:12> History of Present Illness HPI narrative: 86-year-old male with a past medical history of congestive heart failure, AFib on Coumadin, hypertension, BPH, after being found down. Patient tells me that on he had a slip and fall landing on his buttocks. Since then he has been unable to get up. Was found by the daughter in-law who called EMS. The patient denies any head injury or loss of consciousness. He is complaining of some bilateral hip pain and buttocks pain. No abdominal pain, chest pain, back pain, neck pain. Patient tells me he has not been able to eat or drink anything since the fall Of note the patient was started on Valtrex 2 days ago for shingles of the left face. He denies any visual complaints. No blurry vision, eye pain. He does have drainage from bilateral eyes which he tells me is not a new thing. 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 jj. <Haily Perez NP - Last Filed: 04/12/21 19:12> Related Data Home medications: Home Medications Medication Instructions Recorded Confirmed amlodipine 5 mg tablet 5 mg PO DAILY tab 08/27/20 04/12/21 finasteride 5 mg tablet 5 mg PO DAILY tab 08/27/20 04/12/21 warfarin 5 mg tablet 5 mg PO DAILY 08/27/20 04/12/21 valacyclovir 1 gram tablet 1 tab PO TID 04/12/21 04/12/21 Previous Rx's Medication Instructions Recorded cefuroxime axetil 500 mg tablet 500 mg PO BID #10 tab 01/27/21 doxycycline monohydrate 100 mg 100 mg PO DAILY #10 cap 01/27/21 capsule furosemide 40 mg tablet 40 mg PO DAILY 30 Days #30 tab 01/27/21 amiodarone 200 mg tablet 200 mg PO DAILY #90 cap 02/17/21 metoprolol succinate 50 mg 50 mg PO DAILY #30 cap 02/18/21 tablet,extended release 24 hr <SUBHASH Rodriguez Last Filed: 04/12/21 19:12> Allergies/adverse reactions: Allergies Allergy/AdvReac Type Severity Reaction Status Date / Time No Known Allergies Allergy Mild NOT Verified 02/10/21 13:21 APPLICABLE <SUBHASH Rodriguez Last Filed: 04/12/21 19:12> Review of Systems Review of Systems: Yes all other systems are reviewed and are negative <SUBHASH Rodriguez Last Filed: 04/12/21 19:12> Constitutional: Constitutional: Reports no additional constitutional complaints, Denies body ache(s), Denies chills, Denies fever(s), Denies headache(s) and Reports weakness <SUBHASH Rodriguez Last Filed: 04/12/21 19:12> Eyes: Eyes: Reports no additional eye complaints, Denies blurry vision, Denies change in vision, Reports eye discharge, Denies irritation, Denies itchy eyes, Denies loss of vision, Denies eye pain, Denies seeing flashes and Denies photophobia <Haily Perez NP - Last Filed: 04/12/21 19:12> ENT: Reports system reviewed and no additional complaints, except as documented, Denies dizziness, Denies headache(s), Denies nasal congestion, Denies nasal discharge and Denies neck pain <SUBHASH Rodriguez Last Filed: 04/12/21 19:12> Cardiovascular: Cardiovascular: Reports no additional cardiovascular complaints, Denies chest pain, Denies leg edema and Denies dyspnea <SUBHASH Rodriguez Last Filed: 04/12/21 19:12> Respiratory: Respiratory: Reports no additional respiratory complaints, Denies cough and Denies dyspnea <Haily Perez NP - Last Filed: 04/12/21 19:12> Gastrointestinal: Gastrointestinal: Reports no additional gastrointestinal complaints, Denies abdominal pain, Denies diarrhea, Denies nausea and Denies vomiting <Haily Perez NP - Last Filed: 04/12/21 19:12> Genitourinary: Genitourinary: Denies urinary incontinence <Haily Perez NP - Last Filed: 04/12/21 19:12> Musculoskeletal: Musculoskeletal: Reports no additional musculoskeletal complaints, Reports back pain, Reports arthralgias, Denies joint swelling, Denies neck pain, Denies numbness and Denies tingling <Haily Perez NP - Last Filed: 04/12/21 19:12> Integumentary/Breasts: Skin/Breast: Reports system reviewed and no additional complaints, except as docu and Reports rash <Haily Perez NP - Last Filed: 04/12/21 19:12> Neurologic: Reports system reviewed and no additional complaints, except as documented, Denies Abnormal speech present, Denies dizziness, Denies headache(s), Denies loss of vision, Denies numbness, Denies tingling and Reports weakness <Haily Perez NP - Last Filed: 04/12/21 19:12> Allergic/Immunologic: Allergic/Immunologic: Denies itchy eyes <Haily Perez NP - Last Filed: 04/12/21 19:12> PMF Past Medical History Attestation statement: The following information was validated with the patient. <Haily Perez NP - Last Filed: 04/12/21 19:12> Source: old records reviewed and nursing notes reviewed <Haily Perez NP - Last Filed: 04/12/21 19:12> Medical History: Medical History (HFpEF) heart failure with preserved ejection fraction HTN (hypertension) Paroxysmal atrial fibrillation Pleural effusion Pneumonitis <Haily Perez NP - Last Filed: 04/12/21 19:12> Surgical History: Surgical History History of cardioversion <Haily Perez NP - Last Filed: 04/12/21 19:12> Family History Family History: Family History Father No problems noted. Mother No problems noted. <Haily Perez NP - Last Filed: 04/12/21 19:12> Social History Social History: Social History Household Members: Spouse Housing: House Do you presently have visiting nurse or other home services: No Alcohol intake: never Patient Tobacco Use Status: Former Tobacco user Tobacco use type: Cigarette Years Smoked: 18 years Use of substances other than those prescribed or required for medical reasons: No Advance Directives: Yes Advance Directives Information Provided: No Advance Directives on File: No Current occupational status: retired <Haily Perez NP - Last Filed: 04/12/21 19:12> Physical Exam Vital Signs: Vital Signs: Last Vital Signs Temp 97.8 F 04/12/21 16:25 Pulse 101 H 04/12/21 19:29 Resp 16 04/12/21 19:29 BP 134/76 04/13/21 08:19 Pulse Ox 97 04/12/21 16:25 Body Mass Index 27.1 <Haily Perez NP - Last Filed: 04/12/21 19:12> Vital Signs: Last Vital Signs Temp 97.8 F 04/12/21 16:25 Pulse 101 H 04/12/21 19:29 Resp 16 04/12/21 19:29 BP 134/76 04/13/21 08:19 Pulse Ox 97 04/12/21 16:25 Body Mass Index 27.1 <TONY Perrin - Last Filed: 04/13/21 09:32> Const: Other: Covered in feces <Haily Perez NP - Last Filed: 04/12/21 19:12> General: cooperative and poor hygiene <Haily Perez NP - Last Filed: 04/12/21 19:12> Limitations: no limitations <Haily Perez NP - Last Filed: 04/12/21 19:12> HENMT: Head: Yes normal to inspection <Haily Perez NP - Last Filed: 04/12/21 19:12> Head images: 1. Erythema, crusted lesions grouped in clusters noted <Haily Perez NP - Last Filed: 04/12/21 19:12> Ears: hearing grossly normal bilaterally and TM's normal bilaterally <Haily Perez NP - Last Filed: 04/12/21 19:12> General nose exam: Normal external nose present <Haily Perez NP - Last Filed: 04/12/21 19:12> Face and sinus: Yes normal facial exam <Haily Perez NP - Last Filed: 04/12/21 19:12> Mouth: Normal oral and palatal mucosa present <Haily Perez NP - Last Filed: 04/12/21 19:12> Throat: Yes posterior oropharynx normal, Yes tonsils normal and Yes uvula midline <Haily Perez NP - Last Filed: 04/12/21 19:12> Eyes: General: appearance normal, both eyes and all related structures <Haily Perez NP - Last Filed: 04/12/21 19:12> Visual Krishnan: normal visual krishnan by confrontation <Haily Perez NP - Last Filed: 04/12/21 19:12> Alignment and Position: alignment normal <Haily Perez NP - Last Filed: 04/12/21 19:12> Periorbital: periorbital findings abnormal (L erythema, swelling, rash) <Haily Perez NP - Last Filed: 04/12/21 19:12> Eyelids: Yes other (erythema over upper/lower eyelid) <Haily Perez NP - Last Filed: 04/12/21 19:12> Conjunctivae: conjunctival abnormal (bilateral injection, erythema) <Haily Perez NP - Last Filed: 04/12/21 19:12> Sclerae: sclerae normal <Haily Perez NP - Last Filed: 04/12/21 19:12> Corneas: fluorescein used (no abrasion, FB or ulceration noted left eye) <Haily Perez NP - Last Filed: 04/12/21 19:12> Pupils: Other pupil findings (Right 3mm-reactive, left tear dropped shaped) <Haily Perez NP - Last Filed: 04/12/21 19:12> EOM: EOMs intact bilaterally <Haily Perez NP - Last Filed: 04/12/21 19:12> Direct Ophthalmoscopy: normal light reflex, no photophobia, anterior chamber normal and No photophobia <Haily Perez NP - Last Filed: 04/12/21 19:12> Neck: Neck: Yes normal visual inspection <Haily Perez NP - Last Filed: 04/12/21 19:12> Chest: Chest palpation & inspection: normal inspection of the chest <Haily Perez NP - Last Filed: 04/12/21 19:12> Resp: Effort & Inspection: normal respiratory effort <Haily Perez NP - Last Filed: 04/12/21 19:12> Auscultation: clear to auscultation bilaterally <Haily Perez NP - Last Filed: 04/12/21 19:12> Cardio: Rate: regular rate <Haily Perez NP - Last Filed: 04/12/21 19:12> Rhythm: regular rhythm <Haily Perez NP - Last Filed: 04/12/21 19:12> Peripheral pulses: Peripheral pulses 2+ throughout <Haily Perze NP - Last Filed: 04/12/21 19:12> GI: Other: Various areas of ecchymosis over the abdomen. No rebound or guarding. <Haily Perez NP - Last Filed: 04/12/21 19:12> Inspection: Yes normal to inspection <Haily Perez NP - Last Filed: 04/12/21 19:12> Palpation (GI): Soft to palpation and nontender <Haily Perez NP - Last Filed: 04/12/21 19:12> Auscultation: normal bowel sounds <Haily Perez NP - Last Filed: 04/12/21 19:12> : General: Yes no CVA tenderness <Haily Perez NP - Last Filed: 04/12/21 19:12> Back/Spine/Pelvis: Other: There is ecchymosis to the sacrum and coccyx area as well as the bilateral hips. No obvious deformity, shortening or rotation. Full range of motion. <Haily Perez NP - Last Filed: 04/12/21 19:12> Back: no CVA tenderness and No ecchymosis <Haily Perez NP - Last Filed: 04/12/21 19:12> Thoracic/Lumbar Spine: thoracic and lumbar spine normal to inspection <Haily Perez NP - Last Filed: 04/12/21 19:12> Skin: General skin exam: no rashes or lesions noted <Haily Perez NP - Last Filed: 04/12/21 19:12> Neuro: General: no focal motor deficits and normal sensation to monofilament <Haily Perez NP - Last Filed: 04/12/21 19:12> Cranial nerves: Yes Bilaterally intact EOM present, Yes Nystagmus not present, Yes Normal facial strength present and Yes Midline tongue present <Haily Perez NP - Last Filed: 04/12/21 19:12> Cognition (Neuro): normal cognition <Haily Perez NP - Last Filed: 04/12/21 19:12> Speech: No Abnormal speech present <Haily Perez NP - Last Filed: 04/12/21 19:12> Gait exam (Neuro): Normal gait present <Haily Perez NP - Last Filed: 04/12/21 19:12> Motor exam (neuro): 5/5 motor strength present throughout <Haily Perez NP - Last Filed: 04/12/21 19:12> Sensory Exam: Normal double simultaneous stimulation for sensation <Haily Perez NP - Last Filed: 04/12/21 19:12> Extrem: General: Yes normal to inspection, Yes no pedal edema and Yes no calf tenderness <Haily Perez NP - Last Filed: 04/12/21 19:12> Course Course Course Narrative: 86-year-old male here after mechanical fall which occurred 2 days ago home. Has been down since then and unable to get up on his own. Patient found by family and ambulance was called. He on arrival is disheveled, covered in feces. He has ecchymosis over his lower back, hips, lower extremities and abdomen in various stages of healing. He tells me he has had decreased p.o. intake and unable to take his medications due to being on the ground. Of note, he is also being treated for shingles on the left side of his face with Valtrex for the last 2 days. He denies any visual changes. Will check labs, EKG, x-rays hip/chest/sacrum, CT head/neck/chest/abdomen, UA. Will start gentle hydration due to underlying congestive heart failure. Patient is alert and oriented. Neurologically intact. Hemodynamically stable. 1515-. Initial lactic mildly elevated. Patient received gentle hydration and repeat lactic is normalized. Troponin x2 Delta. Mildly elevated CPK. No evidence of rhabdomyolysis. Patient received gentle hydration for this. BNP 770. This is actually decreased from previous. No clinical evidence of fluid overload. Imaging showed no acute finding. Urine is pending. Physical therapy evaluation ordered. 1830-Placed in physician observation pending disposition. Medications reconciled. 2100-Sign out to night team pending above <Haily Perez NP - Last Filed: 04/12/21 19:12> Medical Decision Making Medical Records Medical records reviewed: Yes I reviewed the patient's medical records. <Haily Perez NP - Last Filed: 04/12/21 19:12> Lab Data Lab results reviewed: Yes I reviewed the patient's lab results. <Haily Perez NP - Last Filed: 04/12/21 19:12> Result diagrams: : 04/12/21 11:57 04/12/21 11:57 <Haily Perez NP - Last Filed: 04/12/21 19:12> Labs: Lab Results 04/12/21 04/12/21 04/12/21 Range/Units 11:57 11:57 11:57 WBC 10.3 (4.8-10.8) X10*3/uL RBC 4.70 D (4.60-5.80) X10*6/uL Hgb 15.0 D (14.0-18.0) g/dl Hct 44.1 D (42-52) % MCV 93.8 (80-98) fL MCH 31.9 (27.0-33.0) pg MCHC 34.0 (31.0-36.0) g/dl RDW 13.6 (11.0-16.0) % Plt Count 199 (160-400) X10*3/uL MPV 9.8 (9.4-12.4) fL Immature Gran % (Auto) 0.4 (0.0-0.4) % Neut % (Auto) 88.2 H (45-73) % Lymph % (Auto) 4.1 L (20-40) % [place] % (Auto) 7.1 (2-11) % Eos % (Auto) 0.0 (0-4) % Baso % (Auto) 0.2 (0-2) % Lymph # (Auto) 0.4 L (1.2-4.9) X10*3/uL [place] # (Auto) 0.7 (0.1-1.2) X10*3/uL Eos # (Auto) 0.0 (0.0-0.4) X10*3/uL Baso # (Auto) 0.0 (0.0-0.2) X10*3/uL Abs Immat Gran (auto) 0.04 H (0.00-0.03) X10*3/uL Absolute Neuts (auto) 9.1 H (2.0-8.3) X10*3/uL Absolute Nucleated RBC 0.000 (0.0-0.012) X10*3/uL Nucleated RBC % (auto) 0.0 (0.0-0.2) /100WBC PT 19.1 H D (9.9-13.0) SEC INR 1.7 H (0.9-1.1) Sodium 139 (135-145) mmol/L Potassium 4.0 D (3.3-5.1) mmol/L Chloride 99 (96-108) mmol/L Carbon Dioxide 24 (22-29) mmol/L Anion Gap 20 (12-20) BUN 20 H (9-16) mg/dL Creatinine 1.10 (0.5-1.4) mg/dL Estim Creat Clear Calc 49.7 Estimated GFR > 60 Random Glucose 116 H (60-115) mg/dL Lactic Acid (0.5-2.0) mmol/L Lactic Acid Fup @ 2Hr (0.5-2.0) mmol/L Calcium 9.5 D (8.4-10.2) mg/dL Magnesium 2.0 (1.6-2.6) mg/dL Total Bilirubin 1.1 H (0.0-1.0) mg/dL Direct Bilirubin 0.4 (0.0-0.5) mg/dL AST 91 H (5-37) U/L ALT 32 (0-40) U/L Alkaline Phosphatase 79 (39-117) U/L Total Creatine Kinase 1625 H (38-174) U/L Troponin I High Sens (<3.5-35.0) ng/L B-Natriuretic Peptide (<100) pg/mL Total Protein 7.9 (6.5-8.0) g/dL Albumin 4.4 (3.5-5.0) g/dL Urine Color Urine Appearance Urine pH (5.0-8.0) Ur Specific [place] (1.005-1.025) Urine Protein (NEG-TRACE) MG/DL Urine Glucose (UA) (NEG) MG/DL Urine Ketones (NEG) MG/DL Urine Blood (NEG) Urine Nitrite (NEG) Ur Leukocyte Esterase (NEG) Urine RBC (0) /HPF Urine WBC (0-4) /HPF Ur Squamous Epith Cells /LPF Urine Bacteria /LPF Hyaline Casts /LPF Urine Mucus /LPF Coronavirus (PCR) (Negative) Influenza Type A (PCR) (Negative) Influenza Type B (PCR) (Negative) RSV RNA Qual (PCR) (Negative) 04/12/21 04/12/21 04/12/21 Range/Units 11:57 11:57 14:19 WBC (4.8-10.8) X10*3/uL RBC (4.60-5.80) X10*6/uL Hgb (14.0-18.0) g/dl Hct (42-52) % MCV (80-98) fL MCH (27.0-33.0) pg MCHC (31.0-36.0) g/dl RDW (11.0-16.0) % Plt Count (160-400) X10*3/uL MPV (9.4-12.4) fL Immature Gran % (Auto) (0.0-0.4) % Neut % (Auto) (45-73) % Lymph % (Auto) (20-40) % [place] % (Auto) (2-11) % Eos % (Auto) (0-4) % Baso % (Auto) (0-2) % Lymph # (Auto) (1.2-4.9) X10*3/uL [place] # (Auto) (0.1-1.2) X10*3/uL Eos # (Auto) (0.0-0.4) X10*3/uL Baso # (Auto) (0.0-0.2) X10*3/uL Abs Immat Gran (auto) (0.00-0.03) X10*3/uL Absolute Neuts (auto) (2.0-8.3) X10*3/uL Absolute Nucleated RBC (0.0-0.012) X10*3/uL Nucleated RBC % (auto) (0.0-0.2) /100WBC PT (9.9-13.0) SEC INR (0.9-1.1) Sodium (135-145) mmol/L Potassium (3.3-5.1) mmol/L Chloride (96-108) mmol/L Carbon Dioxide (22-29) mmol/L Anion Gap (12-20) BUN (9-16) mg/dL Creatinine (0.5-1.4) mg/dL Estim Creat Clear Calc Estimated GFR Random Glucose (60-115) mg/dL Lactic Acid 2.5 H* (0.5-2.0) mmol/L Lactic Acid Fup @ 2Hr (0.5-2.0) mmol/L Calcium (8.4-10.2) mg/dL Magnesium (1.6-2.6) mg/dL Total Bilirubin (0.0-1.0) mg/dL Direct Bilirubin (0.0-0.5) mg/dL AST (5-37) U/L ALT (0-40) U/L Alkaline Phosphatase (39-117) U/L Total Creatine Kinase (38-174) U/L Troponin I High Sens 47.6 H* (<3.5-35.0) ng/L B-Natriuretic Peptide 770 H (<100) pg/mL Total Protein (6.5-8.0) g/dL Albumin (3.5-5.0) g/dL Urine Color Urine Appearance Urine pH (5.0-8.0) Ur Specific [place] (1.005-1.025) Urine Protein (NEG-TRACE) MG/DL Urine Glucose (UA) (NEG) MG/DL Urine Ketones (NEG) MG/DL Urine Blood (NEG) Urine Nitrite (NEG) Ur Leukocyte Esterase (NEG) Urine RBC (0) /HPF Urine WBC (0-4) /HPF Ur Squamous Epith Cells /LPF Urine Bacteria /LPF Hyaline Casts /LPF Urine Mucus /LPF Coronavirus (PCR) NEGATIVE (Negative) Influenza Type A (PCR) NEGATIVE (Negative) Influenza Type B (PCR) NEGATIVE (Negative) RSV RNA Qual (PCR) NEGATIVE (Negative) 04/12/21 04/12/21 04/12/21 Range/Units 14:19 14:19 14:19 WBC (4.8-10.8) X10*3/uL RBC (4.60-5.80) X10*6/uL Hgb (14.0-18.0) g/dl Hct (42-52) % MCV (80-98) fL MCH (27.0-33.0) pg MCHC (31.0-36.0) g/dl RDW (11.0-16.0) % Plt Count (160-400) X10*3/uL MPV (9.4-12.4) fL Immature Gran % (Auto) (0.0-0.4) % Neut % (Auto) (45-73) % Lymph % (Auto) (20-40) % [place] % (Auto) (2-11) % Eos % (Auto) (0-4) % Baso % (Auto) (0-2) % Lymph # (Auto) (1.2-4.9) X10*3/uL [place] # (Auto) (0.1-1.2) X10*3/uL Eos # (Auto) (0.0-0.4) X10*3/uL Baso # (Auto) (0.0-0.2) X10*3/uL Abs Immat Gran (auto) (0.00-0.03) X10*3/uL Absolute Neuts (auto) (2.0-8.3) X10*3/uL Absolute Nucleated RBC (0.0-0.012) X10*3/uL Nucleated RBC % (auto) (0.0-0.2) /100WBC PT (9.9-13.0) SEC INR (0.9-1.1) Sodium (135-145) mmol/L Potassium (3.3-5.1) mmol/L Chloride (96-108) mmol/L Carbon Dioxide (22-29) mmol/L Anion Gap (12-20) BUN (9-16) mg/dL Creatinine (0.5-1.4) mg/dL Estim Creat Clear Calc Estimated GFR Random Glucose (60-115) mg/dL Lactic Acid (0.5-2.0) mmol/L Lactic Acid Fup @ 2Hr 1.7 (0.5-2.0) mmol/L Calcium (8.4-10.2) mg/dL Magnesium (1.6-2.6) mg/dL Total Bilirubin (0.0-1.0) mg/dL Direct Bilirubin (0.0-0.5) mg/dL AST (5-37) U/L ALT (0-40) U/L Alkaline Phosphatase (39-117) U/L Total Creatine Kinase (38-174) U/L Troponin I High Sens 41.8 H* (<3.5-35.0) ng/L B-Natriuretic Peptide (<100) pg/mL Total Protein (6.5-8.0) g/dL Albumin (3.5-5.0) g/dL Urine Color YELLOW Urine Appearance CLEAR Urine pH 6.0 (5.0-8.0) Ur Specific [place] 1.025 (1.005-1.025) Urine Protein 1+ H (NEG-TRACE) MG/DL Urine Glucose (UA) NEG (NEG) MG/DL Urine Ketones 15 (NEG) MG/DL Urine Blood 2+ H (NEG) Urine Nitrite NEG (NEG) Ur Leukocyte Esterase NEG (NEG) Urine RBC 1-4 (0) /HPF Urine WBC 1-4 (0-4) /HPF Ur Squamous Epith Cells 1+ /LPF Urine Bacteria 1+ /LPF Hyaline Casts 1-4 /LPF Urine Mucus 1+ /LPF Coronavirus (PCR) (Negative) Influenza Type A (PCR) (Negative) Influenza Type B (PCR) (Negative) RSV RNA Qual (PCR) (Negative) <Haily Perez, DEVELOPMENTAL SERVICES WORKER - Last Filed: 04/12/21 19:12> Lab Results 04/12/21 04/12/21 04/12/21 Range/Units 11:57 11:57 11:57 WBC 10.3 (4.8-10.8) X10*3/uL RBC 4.70 D (4.60-5.80) X10*6/uL Hgb 15.0 D (14.0-18.0) g/dl Hct 44.1 D (42-52) % MCV 93.8 (80-98) fL MCH 31.9 (27.0-33.0) pg MCHC 34.0 (31.0-36.0) g/dl RDW 13.6 (11.0-16.0) % Plt Count 199 (160-400) X10*3/uL MPV 9.8 (9.4-12.4) fL Immature Gran % (Auto) 0.4 (0.0-0.4) % Neut % (Auto) 88.2 H (45-73) % Lymph % (Auto) 4.1 L (20-40) % [place] % (Auto) 7.1 (2-11) % Eos % (Auto) 0.0 (0-4) % Baso % (Auto) 0.2 (0-2) % Lymph # (Auto) 0.4 L (1.2-4.9) X10*3/uL [place] # (Auto) 0.7 (0.1-1.2) X10*3/uL Eos # (Auto) 0.0 (0.0-0.4) X10*3/uL Baso # (Auto) 0.0 (0.0-0.2) X10*3/uL Abs Immat Gran (auto) 0.04 H (0.00-0.03) X10*3/uL Absolute Neuts (auto) 9.1 H (2.0-8.3) X10*3/uL Absolute Nucleated RBC 0.000 (0.0-0.012) X10*3/uL Nucleated RBC % (auto) 0.0 (0.0-0.2) /100WBC PT 19.1 H D (9.9-13.0) SEC INR 1.7 H (0.9-1.1) Sodium 139 (135-145) mmol/L Potassium 4.0 D (3.3-5.1) mmol/L Chloride 99 (96-108) mmol/L Carbon Dioxide 24 (22-29) mmol/L Anion Gap 20 (12-20) BUN 20 H (9-16) mg/dL Creatinine 1.10 (0.5-1.4) mg/dL Estim Creat Clear Calc 49.7 Estimated GFR > 60 Random Glucose 116 H (60-115) mg/dL Lactic Acid (0.5-2.0) mmol/L Lactic Acid Fup @ 2Hr (0.5-2.0) mmol/L Calcium 9.5 D (8.4-10.2) mg/dL Magnesium 2.0 (1.6-2.6) mg/dL Total Bilirubin 1.1 H (0.0-1.0) mg/dL Direct Bilirubin 0.4 (0.0-0.5) mg/dL AST 91 H (5-37) U/L ALT 32 (0-40) U/L Alkaline Phosphatase 79 (39-117) U/L Total Creatine Kinase 1625 H (38-174) U/L Troponin I High Sens (<3.5-35.0) ng/L B-Natriuretic Peptide (<100) pg/mL Total Protein 7.9 (6.5-8.0) g/dL Albumin 4.4 (3.5-5.0) g/dL Urine Color Urine Appearance Urine pH (5.0-8.0) Ur Specific [place] (1.005-1.025) Urine Protein (NEG-TRACE) MG/DL Urine Glucose (UA) (NEG) MG/DL Urine Ketones (NEG) MG/DL Urine Blood (NEG) Urine Nitrite (NEG) Ur Leukocyte Esterase (NEG) Urine RBC (0) /HPF Urine WBC (0-4) /HPF Ur Squamous Epith Cells /LPF Urine Bacteria /LPF Hyaline Casts /LPF Urine Mucus /LPF Coronavirus (PCR) (Negative) Influenza Type A (PCR) (Negative) Influenza Type B (PCR) (Negative) RSV RNA Qual (PCR) (Negative) 04/12/21 04/12/21 04/12/21 Range/Units 11:57 11:57 14:19 WBC (4.8-10.8) X10*3/uL RBC (4.60-5.80) X10*6/uL Hgb (14.0-18.0) g/dl Hct (42-52) % MCV (80-98) fL MCH (27.0-33.0) pg MCHC (31.0-36.0) g/dl RDW (11.0-16.0) % Plt Count (160-400) X10*3/uL MPV (9.4-12.4) fL Immature Gran % (Auto) (0.0-0.4) % Neut % (Auto) (45-73) % Lymph % (Auto) (20-40) % [place] % (Auto) (2-11) % Eos % (Auto) (0-4) % Baso % (Auto) (0-2) % Lymph # (Auto) (1.2-4.9) X10*3/uL [place] # (Auto) (0.1-1.2) X10*3/uL Eos # (Auto) (0.0-0.4) X10*3/uL Baso # (Auto) (0.0-0.2) X10*3/uL Abs Immat Gran (auto) (0.00-0.03) X10*3/uL Absolute Neuts (auto) (2.0-8.3) X10*3/uL Absolute Nucleated RBC (0.0-0.012) X10*3/uL Nucleated RBC % (auto) (0.0-0.2) /100WBC PT (9.9-13.0) SEC INR (0.9-1.1) Sodium (135-145) mmol/L Potassium (3.3-5.1) mmol/L Chloride (96-108) mmol/L Carbon Dioxide (22-29) mmol/L Anion Gap (12-20) BUN (9-16) mg/dL Creatinine (0.5-1.4) mg/dL Estim Creat Clear Calc Estimated GFR Random Glucose (60-115) mg/dL Lactic Acid 2.5 H* (0.5-2.0) mmol/L Lactic Acid Fup @ 2Hr (0.5-2.0) mmol/L Calcium (8.4-10.2) mg/dL Magnesium (1.6-2.6) mg/dL Total Bilirubin (0.0-1.0) mg/dL Direct Bilirubin (0.0-0.5) mg/dL AST (5-37) U/L ALT (0-40) U/L Alkaline Phosphatase (39-117) U/L Total Creatine Kinase (38-174) U/L Troponin I High Sens 47.6 H* (<3.5-35.0) ng/L B-Natriuretic Peptide 770 H (<100) pg/mL Total Protein (6.5-8.0) g/dL Albumin (3.5-5.0) g/dL Urine Color Urine Appearance Urine pH (5.0-8.0) Ur Specific [place] (1.005-1.025) Urine Protein (NEG-TRACE) MG/DL Urine Glucose (UA) (NEG) MG/DL Urine Ketones (NEG) MG/DL Urine Blood (NEG) Urine Nitrite (NEG) Ur Leukocyte Esterase (NEG) Urine RBC (0) /HPF Urine WBC (0-4) /HPF Ur Squamous Epith Cells /LPF Urine Bacteria /LPF Hyaline Casts /LPF Urine Mucus /LPF Coronavirus (PCR) NEGATIVE (Negative) Influenza Type A (PCR) NEGATIVE (Negative) Influenza Type B (PCR) NEGATIVE (Negative) RSV RNA Qual (PCR) NEGATIVE (Negative) 04/12/21 04/12/21 04/12/21 Range/Units 14:19 14:19 14:19 WBC (4.8-10.8) X10*3/uL RBC (4.60-5.80) X10*6/uL Hgb (14.0-18.0) g/dl Hct (42-52) % MCV (80-98) fL MCH (27.0-33.0) pg MCHC (31.0-36.0) g/dl RDW (11.0-16.0) % Plt Count (160-400) X10*3/uL MPV (9.4-12.4) fL Immature Gran % (Auto) (0.0-0.4) % Neut % (Auto) (45-73) % Lymph % (Auto) (20-40) % [place] % (Auto) (2-11) % Eos % (Auto) (0-4) % Baso % (Auto) (0-2) % Lymph # (Auto) (1.2-4.9) X10*3/uL [place] # (Auto) (0.1-1.2) X10*3/uL Eos # (Auto) (0.0-0.4) X10*3/uL Baso # (Auto) (0.0-0.2) X10*3/uL Abs Immat Gran (auto) (0.00-0.03) X10*3/uL Absolute Neuts (auto) (2.0-8.3) X10*3/uL Absolute Nucleated RBC (0.0-0.012) X10*3/uL Nucleated RBC % (auto) (0.0-0.2) /100WBC PT (9.9-13.0) SEC INR (0.9-1.1) Sodium (135-145) mmol/L Potassium (3.3-5.1) mmol/L Chloride (96-108) mmol/L Carbon Dioxide (22-29) mmol/L Anion Gap (12-20) BUN (9-16) mg/dL Creatinine (0.5-1.4) mg/dL Estim Creat Clear Calc Estimated GFR Random Glucose (60-115) mg/dL Lactic Acid (0.5-2.0) mmol/L Lactic Acid Fup @ 2Hr 1.7 (0.5-2.0) mmol/L Calcium (8.4-10.2) mg/dL Magnesium (1.6-2.6) mg/dL Total Bilirubin (0.0-1.0) mg/dL Direct Bilirubin (0.0-0.5) mg/dL AST (5-37) U/L ALT (0-40) U/L Alkaline Phosphatase (39-117) U/L Total Creatine Kinase (38-174) U/L Troponin I High Sens 41.8 H* (<3.5-35.0) ng/L B-Natriuretic Peptide (<100) pg/mL Total Protein (6.5-8.0) g/dL Albumin (3.5-5.0) g/dL Urine Color YELLOW Urine Appearance CLEAR Urine pH 6.0 (5.0-8.0) Ur Specific [place] 1.025 (1.005-1.025) Urine Protein 1+ H (NEG-TRACE) MG/DL Urine Glucose (UA) NEG (NEG) MG/DL Urine Ketones 15 (NEG) MG/DL Urine Blood 2+ H (NEG) Urine Nitrite NEG (NEG) Ur Leukocyte Esterase NEG (NEG) Urine RBC 1-4 (0) /HPF Urine WBC 1-4 (0-4) /HPF Ur Squamous Epith Cells 1+ /LPF Urine Bacteria 1+ /LPF Hyaline Casts 1-4 /LPF Urine Mucus 1+ /LPF Coronavirus (PCR) (Negative) Influenza Type A (PCR) (Negative) Influenza Type B (PCR) (Negative) RSV RNA Qual (PCR) (Negative) <TONY Perrin - Last Filed: 04/13/21 09:32> Imaging Data sacrum/coccyx/hips xray: Attestation: I personally reviewed and interpreted this imaging study as follows: <Haily Perez NP - Last Filed: 04/12/21 19:12> Radiologist's impression: FINDINGS: The pelvic ring is intact. Sacroiliac joints are symmetric. No gross fracture of the sacrum or coccyx. Penile implants noted. Vascular calcifications of the pelvis. Visualized portions of the inferior lumbar spine demonstrate degenerative changes. Bilateral total hip arthroplasties are noted. Each femoral component is well-seated within its corresponding acetabular component. No periprosthetic fracture identified bilaterally. XR/XR sacrum coccyx min 2V IMPRESSION: -No fracture of the sacrum or coccyx. -Bilateral hip implants noted without dislocation or periprosthetic fracture.? 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 ? 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 ? No intracranial bleed. ? No skull fracture. <Haily Perez NP - Last Filed: 04/12/21 19:12> CT scan - abdomen: Radiologist's impression: ABDOMEN/PELVIS: The liver is normal in size but demonstrates diffusely decreased attenuation. Gallstones are noted within an otherwise unremarkable appearing gallbladder. Pancreas is unremarkable. Lobulated splenic contour with possible 2.7 cm mass along the superior splenic margin, however, appearance is similar to February 2010 imaging and therefore likely of no clinical concern. There is mild hypertrophy of both adrenal glands. Symmetrically sized kidneys without renal calculi or hydronephrosis. A few subcentimeter renal lesions are too small to accurately characterize. ?Tiny hiatal hernia. The stomach is decompressed. Normal caliber loops of small and large bowel. Tiny fat-containing umbilical hernia. Nonaneurysmal abdominal aorta. No retroperitoneal lymphadenopathy. Evaluation of pelvis is limited secondary to streak artifact from bilateral hip prostheses. The bladder is grossly unremarkable. The prostate gland is at the upper limits of normal in size. Partially visualized penile prostheses. Large fat-containing left inguinal hernia. No gross inguinal lymphadenopathy. <Haily Perez NP - Last Filed: 04/12/21 19:12> CT scan - chest: Attestation: I personally reviewed and interpreted this imaging study as follows: <Haily Perez NP - Last Filed: 04/12/21 19:12> Radiologist's impression: CHEST: Central airways are patent. Lungs are well aerated. Mild emphysematous changes are present. There is mild lingular and dependent atelectasis. No lobar consolidation. No pleural effusion or pneumothorax. A few tiny 1 to 2 mm pulmonary nodules are again identified. No new suspicious pulmonary nodules visualized. Interval resolution of previously present tiny bilateral pleural effusions. The heart is enlarged. Coronary artery calcifications are present. There is no pericardial effusion. Similar dilatation of the ascending aorta measuring up to 4.5 cm in maximum dimension. A few scattered mildly enlarged mediastinal lymph nodes appear stable from January. No enlarged axillary lymph nodes appreciated. <Haily Perez NP - Last Filed: 04/12/21 19:12> Ct cervical spine: Attestation: I personally reviewed and interpreted this imaging study as follows: <SUBHASH Rodriguez Last Filed: 04/12/21 19:12> Radiologist's impression: IMPRESSION: ? 1. No CT evidence of acute fracture. 2. Early advanced degenerative disc disease at all levels especially at C5-C6. 3. Developed osteophyte ridges from the endplates and facet joints arthropathy cause narrowing of the central canal and neural foramen bilaterally at C4-C5 and C5-C6. If patient has neurological symptoms may consider correlation with MRI. <SUBHASH Rodriguez Last Filed: 04/12/21 19:12> ECG Data Attestation: I personally reviewed and interpreted this ECG as follows: <SUBHASH Rodriguez Last Filed: 04/12/21 19:12> Interpretation: Sinus rhythm with a right bundle branch block, normal OR, QTC 589. <SUBHASH Rodriguez Last Filed: 04/12/21 19:12> Discharge Plan Discharge Clinical Impression: Accident due to mechanical fall without injury, Weakness <Haily Perez NP - Last Filed: 04/12/21 19:12> Patient Disposition: er [facility] <Haily Perez NP - Last Filed: 04/12/21 19:12> Prescriptions: No Action amiodarone 200 mg tablet 200 mg PO DAILY Qty: 90 RF: 0 metoprolol succinate 50 mg tablet extended release 24 hr 50 mg PO DAILY Qty: 30 RF: 1 valacyclovir 1 gram tablet 1 tab PO TID RF: 0 furosemide 40 mg tablet 40 mg PO DAILY 30 Days Qty: 30 RF: 0 doxycycline monohydrate 100 mg capsule 100 mg PO DAILY Qty: 10 RF: 0 cefuroxime axetil 500 mg tablet 500 mg PO BID Qty: 10 RF: 0 amlodipine 5 mg tablet 5 mg PO DAILY RF: 0 warfarin 5 mg tablet 5 mg PO DAILY RF: 0 finasteride 5 mg tablet 5 mg PO DAILY RF: 0 <Haily Perez NP - Last Filed: 04/12/21 19:12> ED Observation ED Observation Progress Notes 1: Progress Note: 04/13/21 - 09:29 TONY Perrin - physician observation continued. Patient had an uneventful night. He ate breakfast around 730 this morning. He was able to speak with his family over the phone. He took all his morning medications. He used the urinal with standing at bedside with a standby assist. Bed linens were changed and patient was helped to his ADLs. He reports that he feels much better than he did yesterday otherwise he denies any additional complaints or concerns at this time. No focal neuro deficits are noted. Lungs clear to auscultation. CV RRR. Abdomen is soft and nontender. Labs reviewed and BUN at 20. Random glucose 116. Patient had an elevated lactic acid yesterday at 2.5 then went down to 1.7. Total bilirubin 1.1. AST 91. Total CPK was 1625. He had a negative delta troponin 1st troponin was 47.6. Second troponin 41.8. BNP was 770. UA revealed blood and 15 ketones otherwise no evidence of UTI and patient was negative for COVID/RSV/flu and 04/12/2021. Patient received gentle hydration yesterday. Otherwise patient was medically cleared and he is currently awaiting physical therapy/case management for possible placement will continue to monitor. <TONY Perrin - Last Filed: 04/13/21 09:32>
[2021-04-12 12:08] LABS: Basophils Percent Auto 0.2 % (0-2); Hematocrit 44.1 % (42-52); Imm Gran Abs Auto 0.04 X10*3/uL (0.00-0.03); Imm Gran Pct Auto 0.4 % (0.0-0.4); Lymphocytes Absolute Auto 0.4 X10*3/uL (1.2-4.9); Lymphocytes Percent Auto 4.1 % (20-40); Mean Corpuscular Hemoglobin 31.9 pg (27.0-33.0); Mean Corpuscular Volume 93.8 fL (80-98); Mean Platelet Volume 9.8 fL (9.4-12.4); Monocytes Absolute Auto 0.7 X10*3/uL (0.1-1.2); Monocytes Percent Auto 7.1 % (2-11); Neutrophils Absolute Auto 9.1 X10*3/uL (2.0-8.3); Neutrophils Percent Auto 88.2 % (45-73); Platelet Count 199 X10*3/uL (160-400); Red Cell Distribution Width 13.6 % (11.0-16.0); White Blood Count 10.3 X10*3/uL (4.8-10.8)
[2021-04-12 12:14] LABS: INTERNATIONAL NORM RATIO 1.7 (0.9-1.1); Prothrombin Time 19.1 SEC (9.9-13.0)
[2021-04-12] MEDS: Fluorescein Sodium STRIP 1 STRIP EYE-LEFT (12:17)
[2021-04-12] MEDS: Tetracaine HCl/PF 0.5% Oph Sol 4 ML DROPS 1 DROP EYE-LEFT (12:17)
[2021-04-12 12:34] LABS: Lactic Acid 2.5 mmol/L (0.5-2.0)
[2021-04-12] MEDS: Erythromycin Base 0.5% Oph Oin 1 GM TUBE 1 CM EYE-BOTH (12:37)
[2021-04-12 12:42] LABS: Alanine Aminotransferase 32 U/L (0-40); Albumin Level 4.4 g/dL (3.5-5.0); Alkaline Phosphatase 79 U/L (39-117); Anion Gap 20 (12-20); Aspartate Amino Transferase 91 U/L (5-37); Bilirubin Direct 0.4 mg/dL (0.0-0.5); Bilirubin Total 1.1 mg/dL (0.0-1.0); Blood Urea Nitrogen 20 mg/dL (9-16); Calcium 9.5 mg/dL (8.4-10.2); Carbon Dioxide 24 mmol/L (22-29); Chloride 99 mmol/L (96-108); Creatinine Clr Calc Pharmacy 49.7; Estimated Glomerular Filt Rate > 60; Glucose Random 116 mg/dL (60-115); Sodium 139 mmol/L (135-145); Total Protein 7.9 g/dL (6.5-8.0)
[2021-04-12 12:43] LABS: B Type Natriuretic Peptide 770 pg/mL (<100); Troponin-I High Sensitivity 47.6 ng/L (<3.5-35.0)
[2021-04-12 14:04] LABS: Reflex Lactate? Lactic Acid Added
[2021-04-12 14:36] VITALS: BP 157/76; PULSE 87; RESP 19; TEMP 36.5; O2SAT 98
[2021-04-12 14:56] LABS: ~Lactic Acid-LAB USE ONLY 1.7 mmol/L (0.5-2.0)
[2021-04-12 15:10] LABS: Troponin-I High Sensitivity 41.8 ng/L (<3.5-35.0)
[2021-04-12 15:21] LABS: Influenza A PCR NEGATIVE (Negative); Influenza B PCR NEGATIVE (Negative); Resp Syncy Virus RNA Qual PCR NEGATIVE (Negative); SARS COV2 PCR INHOUSE NEGATIVE (Negative)
[2021-04-12 16:25] VITALS: BP 167/98; PULSE 102; RESP 18; TEMP 36.6; O2SAT 97
[2021-04-12 19:29] VITALS: BP 182/77; PULSE 101; RESP 16
[2021-04-12] MEDS: Warfarin Sodium 5 MG TABLET PO (21:54)
[2021-04-12 22:09] LABS: Glucose Urine UA NEG (NEG); Leukocyte Esterase Urine NEG (NEG); Nitrite Urine NEG (NEG); Specific Gravity - Urine 1.025 (1.005-1.025); UACC Culture Trigger NO; Urine Blood 2+ (NEG); Urine Ketones 15 MG/DL (NEG); Urine Protein 1+ MG/DL (NEG-TRACE)
[2021-04-12 22:13] LABS: Appearance Urine CLEAR; Color Urine YELLOW
[2021-04-12 22:19] LABS: Bacteria Urine 1+ /LPF; Mucus Urine 1+ /LPF; Squamous Epithelial Cell Urine 1+ /LPF
--- NOTE | 2021-04-13 07:27 | PC.NURSE ---
report taken from altagracia jones pt awake, able to sit at bedside to eat breakfast. talking w family on phone, awaiting pt eval for case mgmt placement. sally.
[2021-04-13 08:14] VITALS: BP 134/76
[2021-04-13 08:19] VITALS: BP 134/76
[2021-04-13] MEDS: Metoprolol Succinate ER 50 MG TAB.ER.24H PO (08:19)
[2021-04-13] MEDS: Amiodarone HCL 200 MG TABLET PO (08:19)
[2021-04-13] MEDS: amLODIPine Besylate 5 MG TABLET PO (08:19)
[2021-04-13] MEDS: Furosemide 40 MG TABLET PO (08:19)
[2021-04-13] MEDS: Finasteride 5 MG TABLET PO (08:19)
--- NOTE | 2021-04-13 08:25 | PC.NURSE ---
pt ate breakfast, tolerating po, took all morning meds, attempted to use urinal standing at bedside w stand by assist, no void. bed linens changed and pt cleaned up w sani wipes. in good spirits, sts feeling better today than yesterday, dom.
[2021-04-13 10:28] LABS: INTERNATIONAL NORM RATIO 1.7 (0.9-1.1); Prothrombin Time 19.2 SEC (9.9-13.0)
--- NOTE | 2021-04-13 13:56 | PC.NURSE ---
daughter at bedside for visitation, lead case manager at bedside for update on plan of care, pt in good spirits.
--- NOTE | 2021-04-13 13:59 | MHC.CM.PN ---
Met with Male 86 in ER. He is S/P fall, on floor x2 days. PT eval is needed for STR placement. PT not available yesterday or today. PT back on Wednesday for eval. Option for STR facilities has been provided. Patient asked for preferences. Patient requested [facility]. A referral has been sent. CM will follow for placement.
[2021-04-13] MEDS: cefTRIAXone sodium 2 GM in 0.9 % Sodium Chloride 50 ML IV (15:19)
[2021-04-13 15:25] VITALS: BP 137/76; PULSE 90; RESP 18; TEMP 36.4; O2SAT 96
--- NOTE | 2021-04-13 16:10 | PM.EVENT ---
Event Note Date of Service: 04/13/21 Event Note: Patient seen and examined independently and was present during pedraza portion of E/M service. Agree with midlevel's history, physical, assessment, and plan. 86M presented with fall rhabdo ivf, monitor zoster valtrex gpc in blood suspect contaminant, follow up culture
--- NOTE | 2021-04-13 16:19 | P.HPHOSP_ITS ---
History of Present Illness Date of Service: 04/13/21 Chief Complaint: fall 86-year-old man presenting after a fall at home. He reports that on evening he slipped on a rug and fell to the ground. He hit his back in his hips and unfortunately was unable to get himself back up. He reports he was able to crawl to a chair and the chair helped him to sit up on the floor but he was not able to get himself up on the chair. His is currently hospitalized here and had been concerned about him and called her daughters and they went on Wednesday morning and checked on him and found him on the floor. When EMT got him up he was able to walk to the bathroom and then subsequently walk to the ENT truck. He denied chest pain, shortness of breath, loss consciousness, nausea, vomiting, recent illness, recent travel. He was recently diagnosed with shingles to his left eye area and has been on valacyclovir. In the ER, his CPK was noted to be elevated at 1625. lactic acid 2.5. He did also have elevated high sensitivity troponins were flat. His BNP was elevated at 770 patient did not appear in any failure. he had multiple imaging studies including head CT, chest CT, cervical spine CT, abdominal pelvic CT, hip x-ray and sacrum and coccyx x-ray none showed any acute abnormality. Blood cultures drawn and showed 1 set out of 2 g positive cocci. He was given a dose Rocephin. Will continue this for now as. Will admit for further management and treatment of bacteremia. Review of Systems Review of Systems: Denies any recent fever chills or decrease in appetite respiratory denies any shortness of breath coverage production cardiovascular Denies chest pain gastrointestinal denies any dysphagia abdominal pain nausea vomiting or diarrhea genitourinary denies any dysuria frequency or hematuria musculoskeletal denies any joint pain or swelling neuropsych denies any weakness or seizures all other systems reviewed are negative [facility] Medical History (Updated 04/13/21 @ 16:47 by Kirstin Klein NP) (HFpEF) heart failure with preserved ejection fraction BPH (benign prostatic hyperplasia) HTN (hypertension) Osteoarthritis Paroxysmal atrial fibrillation Pleural effusion Pneumonitis Family History Father No problems noted. Mother No problems noted. Surgical History (Updated 04/13/21 @ 16:47 by Kirstin Klein NP) H/O cataract extraction History of cardioversion History of total right hip arthroplasty Status post colonoscopy with polypectomy Social History Household Members: Spouse Housing: House Do you presently have visiting nurse or other home services: No Alcohol intake: never Patient Tobacco Use Status: Former Tobacco user Tobacco use type: Cigarette Years Smoked: 18 years Use of substances other than those prescribed or required for medical reasons: No Advance Directives: Yes Advance Directives Information Provided: No Advance Directives on File: No Current occupational status: retired Meds Allergies Allergy/AdvReac Type Severity Reaction Status Date / Time No Known Allergies Allergy Mild NOT Verified 02/10/21 13:21 APPLICABLE Active Medications: Current Medications Generic Name Dose Route Start Last Admin Trade Name Freq PRN Reason Stop Dose Admin Acetaminophen 650 mg 04/13/21 16:08 Acetaminophen 325 Mg Tablet PO Q6H PRN Pain, Mild (Pain Scale 1-3) Amiodarone HCl 200 mg 04/13/21 09:00 04/13/21 08:19 Amiodarone Hcl 200 Mg Tablet PO 200 mg DAILY LUPE Administration Amlodipine Besylate 5 mg 04/13/21 09:00 04/13/21 08:19 Amlodipine Besylate 5 Mg Tablet PO 5 mg DAILY LUPE Administration Protocol Finasteride 5 mg 04/13/21 09:00 04/13/21 08:19 Finasteride 5 Mg Tablet PO 5 mg DAILY LUPE Administration Furosemide 40 mg 04/13/21 09:00 04/13/21 08:19 Furosemide 40 Mg Tablet PO 40 mg DAILY LUPE Administration Protocol Sodium Chloride 1,000 mls @ 100 mls/hr 04/13/21 16:15 Ns IVCONT .Q10H LUPE Ceftriaxone Sodium 1 gm/ 50 mls @ 100 mls/hr 04/14/21 14:00 Sodium Chloride IV Q24H LUPE Metoprolol Succinate 50 mg 04/13/21 09:00 04/13/21 08:19 Metoprolol Succinate Er 50 Mg Tab.Er.24h PO 50 mg DAILY LUPE Administration Protocol Ondansetron HCl 4 mg 04/13/21 16:08 Ondansetron Hcl 4 Mg/2 Ml Vial IVPUSH Q8H PRN Nausea and Vomiting Valacyclovir HCl 1,000 mg 04/12/21 21:00 04/13/21 16:05 Valacycyclovir Hcl 1,000 Mg Tablet PO 1,000 mg TID [facility] Administration Warfarin Sodium 5 mg 04/12/21 20:00 04/12/21 21:54 Warfarin Sodium 5 Mg Tablet PO 5 mg DAILY@1800 [facility] Administration Home Medications Medication Instructions Recorded Confirmed Last Taken Type amlodipine 5 mg tablet 5 mg PO DAILY tab 08/27/20 04/12/21 01/24/21 History finasteride 5 mg tablet 5 mg PO DAILY tab 08/27/20 04/12/21 01/24/21 History warfarin 5 mg tablet 5 mg PO DAILY 08/27/20 04/12/21 01/24/21 History valacyclovir 1 gram tablet 1 tab PO TID 04/12/21 04/12/21 Unknown History Physical Exam Vital Signs and Narrative: Vital Signs: Last Vital Signs Temp 97.6 F 04/13/21 15:25 Pulse 90 04/13/21 15:25 Resp 18 04/13/21 15:25 BP 137/76 04/13/21 15:25 Pulse Ox 96 04/13/21 15:25 Body Mass Index 27.1 Appearing in no acute distress head is normocephalic, left forehead and eye erythema with scabbed areas from zoster eyes pupils are PERRLA sclera is anicteric, some injection noted to left eye mouth throat mucous membranes are intact and moist neck is supple no lymphadenopathy, no JVD noted lung sounds are clear to auscultation heart regular rate rhythm, clear S1, S2 positive bowel sounds, abdomen is soft, nontender neuro patient is alert x3, no focal deficits Results Labs CBC and Chem 7: 04/12/21 11:57 04/12/21 11:57 Labs: Laboratory Results - last 24 hr 04/12/21 04/13/21 14:19 10:15 PT 19.2 H INR 1.7 H Urine Color YELLOW Urine Appearance CLEAR Urine pH 6.0 Ur Specific [place] 1.025 Urine Protein 1+ H Urine Glucose (UA) NEG Urine Ketones 15 Urine Blood 2+ H Urine Nitrite NEG Ur Leukocyte Esterase NEG Urine RBC 1-4 Urine WBC 1-4 Ur Squamous Epith Cells 1+ Urine Bacteria 1+ Hyaline Casts 1-4 Urine Mucus 1+ Assessment and Plan (1) Rhabdomyolysis: Status: Acute 86-year-old man admitted with very mild rhabdomyolysis secondary to follow-up home. Is also noted to have who 1/2 g positive cocci in the blood culture. He was diagnosed with zoster to the left forehead eye area as an outpatient by his PCP. Mild rhabdomyolysis. Secondary to a fall and being on the floor for a day and half IV fluids Follow CPK Stable kidney function Fall. Mechanical PT consult Lactic acidosis. Likely secondary to dehydration Follow Elevated troponin. No chest pain, no ischemic EKG changes Remained flat. Elevated BNP with history of diastolic heart failure. No complaints of shortness of breath or chest pain, no overt heart failure Follow continue amlodipine Atrial fibrillation. No exacerbation. Continue amiodarone, metoprolol and warfarin Check PT INR daily Shingles/zoster. Diagnosis outpatient Continue valacyclovir DVT prophylaxis with warfarin Attending Dr. Rodriguez Full code Quality Stroke Does the patient have a stroke diagnosis?: No VTE Prior VTE?: No VTE Risk Level:: Medical - moderate - high VTE Device Contraindication: Treatment Not Indicated VTE Drug Contraindication: N/A - Med Ordered
[2021-04-13] MEDS: 0.9 % Sodium Chloride 1,000 ML 100 ML IVCONT (16:32)
[2021-04-13 16:59] LABS: Hemoglobin 13.8 g/dl (14.0-18.0); Mean Corpuscular HGB Conc 33.7 g/dl (31.0-36.0); Mean Corpuscular Hemoglobin 31.8 pg (27.0-33.0); Mean Corpuscular Volume 94.5 fL (80-98); Mean Platelet Volume 10.2 fL (9.4-12.4); Platelet Count 203 X10*3/uL (160-400); Red Blood Count 4.34 X10*6/uL (4.60-5.80); Red Cell Distribution Width 13.6 % (11.0-16.0); White Blood Count 8.5 X10*3/uL (4.8-10.8)
[2021-04-13] MEDS: Warfarin Sodium 5 MG TABLET PO (17:06)
[2021-04-13 17:10] LABS: Anion Gap 15 (12-20); Carbon Dioxide 27 mmol/L (22-29); Chloride 102 mmol/L (96-108); Creatinine Clr Calc Pharmacy 42.1; Estimated Glomerular Filt Rate 52; Glucose Random 105 mg/dL (60-115); Potassium 3.8 mmol/L (3.3-5.1); Sodium 140 mmol/L (135-145)
[2021-04-13 17:32] LABS: Blood Urea Nitrogen 32 mg/dL (9-16); Calcium 8.9 mg/dL (8.4-10.2)
--- NOTE | 2021-04-13 18:11 | PC.NURSE ---
report given to s3 rn
[2021-04-13 18:36] VITALS: BP 162/79; PULSE 99; RESP 18; TEMP 36.6; O2SAT 98
[2021-04-13 23:31] VITALS: BP 125/67; PULSE 84; RESP 14; TEMP 36.3; O2SAT 97
[2021-04-14] VITALS (8 sets, daily range): BP systolic 121–162; BP diastolic 63–84; PULSE 61–84; RESP 14–18; TEMP 35.8–36.6; O2SAT 95–98
[2021-04-14] MEDS: 0.9 % Sodium Chloride 1,000 ML 100 ML IVCONT ×3 (01:47→23:22)
[2021-04-14] MEDS: Acetaminophen 325 MG TABLET 650 MG PO (04:11)
[2021-04-14 06:06] LABS: MANUAL DIFF FLAG NO
[2021-04-14 06:10] LABS: Basophils Percent Auto 0.3 % (0-2); Eosinophils Absolute Auto 0.2 X10*3/uL (0.0-0.4); Hematocrit 37.3 % (42-52); Hemoglobin 12.6 g/dl (14.0-18.0); Imm Gran Abs Auto 0.02 X10*3/uL (0.00-0.03); Imm Gran Pct Auto 0.3 % (0.0-0.4); Lymphocytes Absolute Auto 0.6 X10*3/uL (1.2-4.9); Lymphocytes Percent Auto 9.7 % (20-40); Mean Corpuscular HGB Conc 33.8 g/dl (31.0-36.0); Mean Corpuscular Hemoglobin 31.7 pg (27.0-33.0); Mean Platelet Volume 10.4 fL (9.4-12.4); Monocytes Absolute Auto 0.6 X10*3/uL (0.1-1.2); Monocytes Percent Auto 9.8 % (2-11); Neutrophils Absolute Auto 4.9 X10*3/uL (2.0-8.3); Neutrophils Percent Auto 76.9 % (45-73); Platelet Count 165 X10*3/uL (160-400); Red Blood Count 3.97 X10*6/uL (4.60-5.80); Red Cell Distribution Width 13.5 % (11.0-16.0); White Blood Count 6.3 X10*3/uL (4.8-10.8)
[2021-04-14 06:36] LABS: Anion Gap 15 (12-20); Blood Urea Nitrogen 29 mg/dL (9-16); Calcium 7.9 mg/dL (8.4-10.2); Carbon Dioxide 22 mmol/L (22-29); Chloride 106 mmol/L (96-108); Creatinine Clr Calc Pharmacy 61.5; Estimated Glomerular Filt Rate > 60; Glucose Random 94 mg/dL (60-115); Potassium 3.5 mmol/L (3.3-5.1); Sodium 139 mmol/L (135-145)
[2021-04-14] MEDS: Metoprolol Succinate ER 50 MG TAB.ER.24H PO (08:30)
[2021-04-14] MEDS: Furosemide 40 MG TABLET PO (08:30)
[2021-04-14] MEDS: Amiodarone HCL 200 MG TABLET PO (08:30)
[2021-04-14] MEDS: amLODIPine Besylate 5 MG TABLET PO (08:30)
[2021-04-14] MEDS: Finasteride 5 MG TABLET PO (08:30)
[2021-04-14 08:51] LABS: INTERNATIONAL NORM RATIO 1.8 (0.9-1.1); Prothrombin Time 21.1 SEC (9.9-13.0)
--- NOTE | 2021-04-14 09:18 | MHC.CM.PN ---
PATIENT ASKS TO COMPLETE HCP. HE ASSIGNS HIS AND STEP DAUGHTER (IN THAT ORDER) COMPLETED DOCUMENT UPLOADED TO [facility] AND PATIENT HAS ORIGINAL WITH ONE COPY. [facility] IS WILLING TO ACCEPT AND AWARE THAT POTENTIAL DISCHARGE OF TOMORROW (04/15/21)
--- NOTE | 2021-04-14 10:26 | PC.NURSE ---
Skin/Wound assessment completed today. Patient has an abrasion to his right wrist being treated with Xeroform and foam dressing. Scabs to bilateral right knee. Blanchable redness to sacrum and buttocks with a healed skin tear on upper right buttock. EPC cream applied to sacrum and buttocks. Patient also has shingles to his upper left eye and forehead. Bruise to his left buttocks. All present on admission.
[2021-04-14] MEDS: cefTRIAXone sodium 1 GM in 0.9 % Sodium Chloride 50 ML IV (15:06)
--- NOTE | 2021-04-14 15:32 | PM.IMPN ---
Progress Note: A&P (1) Accident due to mechanical fall without injury: Status: Acute Assessment and Plan: 86-year-old man admitted with very mild rhabdomyolysis secondary to follow-up home.? Is also noted to have who 1/2 g positive cocci in the blood culture.? He was diagnosed with zoster to the left forehead eye area as an outpatient by his PCP. Mild rhabdomyolysis.? Secondary to a fall and being on the floor for a day and half CK better today IV fluids Stable kidney function Positive blood cx Coag neg staph, likely contaminant continue rocephin for now and ID to follow Fall.? Mechanical PT rec STR Lactic acidosis.? Likely secondary to dehydration Follow Elevated troponin.? No chest pain, no ischemic EKG changes Remained flat. Elevated BNP with history of diastolic heart failure.? No complaints of shortness of breath or chest pain, no overt heart failure Follow continue amlodipine Atrial fibrillation.? No exacerbation.? Continue amiodarone, metoprolol and warfarin Check PT INR daily Shingles/zoster.? Diagnosis outpatient Can stop valacyclovir 04/16 after completing 7 day course DVT prophylaxis with warfarin DISPO likely tx to str tomorrow when medically stable Attending Dr. Gould Full code Subjective Subjective Date of Service: 04/14/21 Interval History: Follow up fall, rhabdo Doing well today some back pain Physical Exam Vital Signs: Vital Signs: Last Vital Signs Temp 97 F 04/14/21 15:22 Pulse 61 04/14/21 15:22 Resp 18 04/14/21 15:22 BP 121/70 04/14/21 15:22 Pulse Ox 95 04/14/21 15:22 Body Mass Index 27.1 Appearing in no acute distress lung sounds are clear to auscultation heart regular rate rhythm, clear S1, S2 positive bowel sounds, abdomen is soft, nontender neuro patient is alert x3, no focal deficits Objective Data Current Medications Generic Name Dose Route Start Last Admin Trade Name Freq PRN Reason Stop Dose Admin Acetaminophen 650 mg 04/13/21 16:08 04/14/21 04:11 Acetaminophen 325 Mg Tablet PO 650 mg Q6H PRN Administration Pain, Mild (Pain Scale 1-3) Amiodarone HCl 200 mg 04/13/21 09:00 04/14/21 08:30 Amiodarone Hcl 200 Mg Tablet PO 200 mg DAILY LUPE Administration Amlodipine Besylate 5 mg 04/13/21 09:00 04/14/21 08:30 Amlodipine Besylate 5 Mg Tablet PO 5 mg DAILY LUPE Administration Protocol Finasteride 5 mg 04/13/21 09:00 04/14/21 08:30 Finasteride 5 Mg Tablet PO 5 mg DAILY LUPE Administration Furosemide 40 mg 04/13/21 09:00 04/14/21 08:30 Furosemide 40 Mg Tablet PO 40 mg DAILY LUPE Administration Protocol Sodium Chloride 1,000 mls @ 100 mls/hr 04/13/21 16:15 04/14/21 12:51 Ns IVCONT 100 mls/hr .Q10H LUPE Administration Ceftriaxone Sodium 1 gm/ 50 mls @ 100 mls/hr 04/14/21 14:00 04/14/21 15:06 Sodium Chloride IV 100 mls/hr Q24H LUPE Administration Metoprolol Succinate 50 mg 04/13/21 09:00 04/14/21 08:30 Metoprolol Succinate Er 50 Mg Tab.Er.24h PO 50 mg DAILY LUPE Administration Protocol Ondansetron HCl 4 mg 04/13/21 16:08 Ondansetron Hcl 4 Mg/2 Ml Vial IVPUSH Q8H PRN Nausea and Vomiting Valacyclovir HCl 1,000 mg 04/12/21 21:00 04/14/21 15:06 Valacycyclovir Hcl 1,000 Mg Tablet PO 1,000 mg TID LUPE Administration Warfarin Sodium 5 mg 04/12/21 20:00 04/13/21 17:06 Warfarin Sodium 5 Mg Tablet PO 5 mg DAILY@1800 LUPE Administration Labs CBC & Chem 7: 04/14/21 05:31 04/14/21 05:31 Labs: Laboratory Results - last 24 hr 04/13/21 04/13/21 04/14/21 16:40 16:40 05:31 MCV 94.5 94.0 MCH 31.8 31.7 MCHC 33.7 33.8 RDW 13.6 13.5 Plt Count 203 165 MPV 10.2 10.4 Immature Gran % (Auto) 0.3 Neut % (Auto) 76.9 H Lymph % (Auto) 9.7 L [place] % (Auto) 9.8 Eos % (Auto) 3.0 Baso % (Auto) 0.3 Lymph # (Auto) 0.6 L [place] # (Auto) 0.6 Eos # (Auto) 0.2 Baso # (Auto) 0.0 Abs Immat Gran (auto) 0.02 Absolute Neuts (auto) 4.9 Absolute Nucleated RBC 0.000 0.000 Nucleated RBC % (auto) 0.0 0.0 PT INR Anion Gap 15 Estim Creat Clear Calc 42.1 Estimated GFR 52 Random Glucose 105 Calcium 8.9 D Total Creatine Kinase 521 H D 04/14/21 04/14/21 05:31 07:50 MCV MCH MCHC RDW Plt Count MPV Immature Gran % (Auto) Neut % (Auto) Lymph % (Auto) [place] % (Auto) Eos % (Auto) Baso % (Auto) Lymph # (Auto) [place] # (Auto) Eos # (Auto) Baso # (Auto) Abs Immat Gran (auto) Absolute Neuts (auto) Absolute Nucleated RBC Nucleated RBC % (auto) PT 21.1 H INR 1.8 H Anion Gap 15 Estim Creat Clear Calc 61.5 Estimated GFR > 60 Random Glucose 94 Calcium 7.9 L D Total Creatine Kinase Microbiology Microbiology Results: Microbiology 04/12/21 14:19 Blood - Venous Blood Culture - Final Coag negative Staphylococcus 04/12/21 14:19 Blood - Venous Blood Culture - Preliminary No growth after 24 hours. Quality Stroke Does the patient have a stroke diagnosis?: No VTE Prior VTE?: No VTE Risk Level:: Medical - moderate - high VTE Device Contraindication: Treatment Not Indicated VTE Drug Contraindication: N/A - Med Ordered
[2021-04-14] MEDS: Warfarin Sodium 5 MG TABLET PO (17:27)
[2021-04-15 07:03] LABS: Prothrombin Time 23.4 SEC (9.9-13.0)
[2021-04-15 07:30] LABS: Anion Gap 12 (12-20); Blood Urea Nitrogen 16 mg/dL (9-16); Calcium 8.3 mg/dL (8.4-10.2); Carbon Dioxide 28 mmol/L (22-29); Chloride 104 mmol/L (96-108); Creatinine Clr Calc Pharmacy 68.4; Estimated Glomerular Filt Rate > 60; Glucose Random 98 mg/dL (60-115); Potassium 3.8 mmol/L (3.3-5.1); Sodium 140 mmol/L (135-145)
[2021-04-15 08:00] VITALS: BP 140/70; PULSE 64; RESP 18; TEMP 36.5; O2SAT 97
[2021-04-15 08:34] VITALS: BP 140/70; PULSE 64
[2021-04-15] MEDS: Amiodarone HCL 200 MG TABLET PO (08:34)
[2021-04-15] MEDS: Finasteride 5 MG TABLET PO (08:34)
[2021-04-15] MEDS: Furosemide 40 MG TABLET PO (08:34)
[2021-04-15 08:36] VITALS: BP 140/70; PULSE 64
[2021-04-15] MEDS: Metoprolol Succinate ER 50 MG TAB.ER.24H PO (08:36)
[2021-04-15] MEDS: amLODIPine Besylate 5 MG TABLET PO (08:36)
[2021-04-15 10:49] VITALS: BP 140/70; PULSE 64
[2021-04-15 12:00] VITALS: BP 130/60; PULSE 84; RESP 16; TEMP 36.6; O2SAT 98
--- NOTE | 2021-04-15 13:55 | PM.DS ---
DS: Providers Provider Date of Service: 04/15/21 Date of admission: 04/13/21 15:57 Date of discharge: 04/15/21 Primary care physician: Marcos Maurer MD Admitting clinician: Kirstin Klein Attending physician on admission: Benjie Rodriguez Consults: 04/14/21 15:37 Consult to Infectious Diseases Routine Consulting Provider: Skylar Tolentino Reason for consultation: 09/07 blood cx pos, coag neg Attending physician on discharge: Benjie Rodriguez Discharging clinician: Kirstin Klein DS: Diagnosis Discharge Diagnosis (1) Rhabdomyolysis: Status: Acute (2) Accident due to mechanical fall without injury: Status: Acute DS: Medications Discharge Medications Home Medications: Home Medications Medication Instructions Recorded Confirmed amlodipine 5 mg tablet 5 mg PO DAILY tab 08/27/20 04/12/21 finasteride 5 mg tablet 5 mg PO DAILY tab 08/27/20 04/12/21 warfarin 5 mg tablet 5 mg PO DAILY 08/27/20 04/12/21 Previous Rx's Medication Instructions Recorded furosemide 40 mg tablet 40 mg PO DAILY 30 Days #30 tab 01/27/21 amiodarone 200 mg tablet 200 mg PO DAILY #90 cap 02/17/21 metoprolol succinate 50 mg 50 mg PO DAILY #30 cap 02/18/21 tablet,extended release 24 hr valacyclovir 1 gram tablet 1 tab PO TID #3 tab 04/15/21 DS: Summary Hospital Course Hospital Course: HP as per admitting provider 86-year-old man presenting after a fall at home.? He reports that on evening he slipped on a rug and fell to the ground.? He hit his back in his hips and unfortunately was unable to get himself back up.? He reports he was able to crawl to a chair and the chair helped him to sit up on the floor but he was not able to get himself up on the chair.? His is currently hospitalized here and had been concerned about him and called her daughters and they went on Wednesday morning and checked on him and found him on the floor.? When EMT got him up he was able to walk to the bathroom and then subsequently walk to the ENT truck.? He denied chest pain, shortness of breath, loss consciousness, nausea, vomiting, recent illness, recent travel.? He was recently diagnosed with shingles to his left eye area and has been on valacyclovir.? In the ER, his CPK was noted to be elevated at 1625. lactic acid 2.5.? He did also have elevated high sensitivity troponins were flat.? His BNP was elevated at 770 patient did not appear in any failure.? he had multiple imaging studies including head CT, chest CT, cervical spine CT, abdominal pelvic CT, hip x-ray and sacrum and coccyx x-ray none showed any acute abnormality.? Blood cultures drawn and showed 1 set out of 2 g positive cocci.? He was given a dose Rocephin.? Will continue this for now as.? Will admit for further management and treatment of bacteremia . Mild rhabdomyolysis Secondary to a mechanicalfall. Patient had a mechanical fall at home and unfortunately was on the ground for approximately a day and a half. he was found by his 's daughter's. Was brought to the ER for further evaluation. His initial CPK was noted to be 1006 and 25. He was treated with IV fluids and his CPK came down to 316. he was also treated for some back pain which resolved. patient appetite remained stable and was eating and drinking fine. he was seen and evaluated by Physical therapy which recommended short-term rehab which patient was in agreement with. Positive blood cultures. 1/ set was positive for coag-negative staph, contaminant. Was treated with Rocephin initially however this was discontinued. No bacteremia. Shingles. Diagnosis outpatient. Had been on acyclovir started on 04/08/2021, needs 3 more doses to conclude a total of 7 day treatment. Time Spent with Patient Time attestation: Total time spent providing and/or coordinating discharge services: Discharge coordination time: Greater than 30 minutes Quality: Stroke Does the patient have a stroke diagnosis?: No Physical Exam Vital Signs: Vital Signs: Last Vital Signs Temp 97.8 F 04/15/21 12:00 Pulse 84 04/15/21 12:00 Resp 16 04/15/21 12:00 BP 130/60 04/15/21 12:00 Pulse Ox 98 04/15/21 12:00 Body Mass Index 27.1 DS: Data Data Completed and Pending Labs on day of discharge: Laboratory Results - last 24 hr 04/15/21 04/15/21 06:05 06:05 PT 23.4 H INR 2.0 H Sodium 140 Potassium 3.8 Chloride 104 Carbon Dioxide 28 Anion Gap 12 BUN 16 Creatinine 0.80 Estim Creat Clear Calc 68.4 Estimated GFR > 60 Random Glucose 98 Calcium 8.3 L Total Creatine Kinase 316 H D Preliminary micro results at discharge 04/12/21 14:19 Blood Culture - Preliminary Blood - Venous No growth after 48 hours. Discharge Plan Discharge Anticipated Discharge Date/Time: 04/15/21 10:23 Patient Disposition: Xfer Inpatient Rehab Fac Discharge Diagnosis: Fall Bacteremia (negative blood cultures) Mild rhabdomyolysis Referrals: Marcos Maurer MD [Primary Care Provider] - 1 Week Discharge Medications: Continued amiodarone 200 mg tablet 200 mg PO DAILY Qty: 90 RF: 0 metoprolol succinate 50 mg tablet extended release 24 hr 50 mg PO DAILY Qty: 30 RF: 1 valacyclovir 1 gram tablet 1 tab PO TID Qty: 3 RF: 0 furosemide 40 mg tablet 40 mg PO DAILY 30 Days Qty: 30 RF: 0 amlodipine 5 mg tablet 5 mg PO DAILY RF: 0 warfarin 5 mg tablet 5 mg PO DAILY RF: 0 finasteride 5 mg tablet 5 mg PO DAILY RF: 0 Discontinued doxycycline monohydrate 100 mg capsule 100 mg PO DAILY Qty: 10 RF: 0 cefuroxime axetil 500 mg tablet 500 mg PO BID Qty: 10 RF: 0 Discharge Orders: Discharge Order (Routine); Ordered 04/15/21 Ordered By: Kirstin Klein Diet: advance to usual diet Activity on Discharge: As tolerated Stand Alone Forms: Patient Portal Discharge page Care Plan Goals: Complete resolution of rhabdomyolysis Health Concerns: Fall Bacteremia (negative blood cultures) Mild rhabdomyolysis Plan of Treatment: Follow up with your primary care provider as needed after rehabilitation Take all medications as prescribed You have 3 more doses left of the valacyclovir Assessment: See discharge summary
--- NOTE | 2021-04-15 14:17 | MHC.CM.PN ---
PATIENT INSISTS THAT HIS STEP-DAUGHTER TAKE HIM TO REHAB AT [facility] MESSAGE LEFT FOR [facility] @ [phone] @ 11:30 TO CALL THIS [employer]CT MANAGER BACK. PATIENT CALLED [facility], WHO WILL BE HERE TO TRANSPORT PATIENT FOR 1500 TO FACILITY. RN, UNIT, AND PA AWARE OF PLAN.
--- NOTE | 2021-04-15 15:16 | P.CNID_ITS ---
History of Present Illness Data of Consult Service Date: 04/15/21 Requesting physician: Benjie Rodriguez Primary Care Provider: Marcos Maurer MD HPI Reason for consult: bacteremia He presents to hospital brought in after fall on buttocks and couldnt get up He has shingles left face and had Valtrex started two days ago. He has no fever or chills He has urinalysis negative He has blood culture 1/2 staph epi He has no port lines Review of Systems Review of Systems: Yes all other systems are reviewed and are negative [facility] Past Medical History Medical History (Updated 04/23/21 @ 00:02 by Megha Bundy) (HFpEF) heart failure with preserved ejection fraction BPH (benign prostatic hyperplasia) CHF (congestive heart failure) Herpes zoster, ocular HTN (hypertension) Osteoarthritis Paroxysmal atrial fibrillation Pleural effusion Pneumonitis Family History Family History Father No problems noted. Mother No problems noted. Surgical History Surgical History H/O cataract extraction History of cardioversion History of total right hip arthroplasty Status post colonoscopy with polypectomy Social History Social History Household Members: Spouse Housing: House Do you presently have visiting nurse or other home services: No Alcohol intake: never Patient Tobacco Use Status: Former Tobacco user Tobacco use type: Cigarette Years Smoked: 18 years Current occupational status: retired Meds Allergies Allergy/AdvReac Type Severity Reaction Status Date / Time No Known Allergies Allergy Mild NOT Verified 05/09/21 14:11 APPLICABLE Home Medications Medication Instructions Recorded Confirmed Last Taken Type amlodipine 5 mg tablet 5 mg PO DAILY tab 08/27/20 04/12/21 01/24/21 History finasteride 5 mg tablet 5 mg PO DAILY tab 08/27/20 04/12/21 01/24/21 History warfarin 5 mg tablet 5 mg PO DAILY 08/27/20 04/12/21 01/24/21 History Physical Exam Vital Signs: Vital Signs: Last Vital Signs Temp 97.8 F 04/15/21 12:00 Pulse 84 04/15/21 12:00 Resp 16 04/15/21 12:00 BP 130/60 04/15/21 12:00 Pulse Ox 98 04/15/21 12:00 Body Mass Index 27.1 Const: General: cooperative Orientation/consciousness: patient oriented x3 HENMT: Head: Yes normal to inspection Mouth: Normal oral and palatal mucosa present and other (left facial crusting) Resp: Effort & Inspection: normal respiratory effort Cardio: Rate: regular rate Rhythm: regular rhythm GI: Palpation (GI): Soft to palpation and nontender Skin: General skin exam: no rashes or lesions noted Neuro: General: patient oriented x3 Results Labs CBC & Chem 7: 04/14/21 05:31 04/15/21 06:05 Labs: BMP 04/15/21 06:05 Sodium 140 Potassium 3.8 Chloride 104 Carbon Dioxide 28 BUN 16 Creatinine 0.80 Calcium 8.3 L Cardiac Enzymes 04/15/21 Range/Units 06:05 Total Creatine Kinase 316 H D (38-174) U/L Microbiology Microbiology Results: Microbiology 04/12/21 14:19 Blood - Venous Blood Culture - Preliminary No growth after 48 hours. 04/12/21 14:19 Blood - Venous Blood Culture - Final Coag negative Staphylococcus Assessment and Plan (1) Positive blood culture: Status: Resolved The single isolate of coagulase negative staph is likely contaminant Herpes zoster is improving No antibiotics Finish Valtrex (2) Herpes zoster, ocular: Status: Acute
== END 2021-04-15 15:08 | disposition skilled nursing facility (03) | DRG 566 ==
LOC: HO.ED 04-13 14:51 → HO.EDOVER 04-13 16:17 → HO.S3 04-13 16:50
PROVIDERS: Nurse Practitioner Family; Admitting Provider Nurse Practitioner Acute Care; Emergency Provider Emergency Medicine Emergency Medical Services; PCP Internal Medicine; Visit Provider Internal Medicine
DX: T79.6XXA Traumatic ischemia of muscle, initial encounter (principal); W19.XXXA Unspecified fall, initial encounter; I48.0 Paroxysmal atrial fibrillation; B02.9 Zoster without complications; Z96.641 Presence of right artificial hip joint; Y92.009 Unspecified place in unspecified non-institutional (private) residence as the place of occurrence of the external cause; M54.9 Dorsalgia, unspecified; Z20.822 Contact with and (suspected) exposure to COVID-19; Z87.891 Personal history of nicotine dependence; Z79.01 Long term (current) use of anticoagulants; Z79.899 Other long term (current) drug therapy
CPT/HCPCS: 0241U; 36415; 70450; 71250; 72125; 72220; 73522; 74176; 80048; 80076; 81001; 82550; 83605; 83735; 83880; 84484; 85025; 85027; 85610; 87040; 87147; 87205; 93005; 97116; 97162; 97530; 99285; J0696

== ENCOUNTER 2021-04-30 15:17 | Outpatient (REF) | payer MEDICARE, SELFPAY | END 2021-04-30 15:18 | disposition home or self-care (01) | LOC: HO.LNP 15:17 | PROVIDERS: Visit Provider Internal Medicine | DX: S60.812A Abrasion of left wrist, initial encounter (principal); X58.XXXA Exposure to other specified factors, initial encounter; Y93.9 Activity, unspecified; Y92.9 Unspecified place or not applicable; Y99.9 Unspecified external cause status | CPT/HCPCS: 87071; 87077; 87186; 87205 ==

== ENCOUNTER → 2021-05-09 13:58 | Outpatient (BNVA) | payer MEDICARE, SELFPAY | PROVIDERS: PCP Internal Medicine; Visit Provider Hospitalist | DX: J90 Pleural effusion, not elsewhere classified (principal); I50.9 Heart failure, unspecified; I48.0 Paroxysmal atrial fibrillation; I11.0 Hypertensive heart disease with heart failure; I50.30 Unspecified diastolic (congestive) heart failure; Z98.890 Other specified postprocedural states; Z96.641 Presence of right artificial hip joint | CPT/HCPCS: 99212 ==

== ENCOUNTER 2021-05-28 12:17 | Outpatient (REF) | payer MEDICARE, SELFPAY ==
[2021-05-28 14:44] LABS: INTERNATIONAL NORM RATIO 1.6 (0.9-1.1); Prothrombin Time 17.8 SEC (9.9-13.0)
== END 2021-05-28 12:18 | disposition home or self-care (01) ==
LOC: HO.10HDLR 12:17
PROVIDERS: Visit Provider Internal Medicine
DX: I48.91 Unspecified atrial fibrillation (principal)
CPT/HCPCS: 36415; 85610

== ENCOUNTER 2021-07-15 14:25 | Outpatient (REF) | payer SELFPAY | END 2021-07-15 14:26 | disposition home or self-care (01) | LOC: HO.HAP 14:25 | PROVIDERS: Visit Provider Internal Medicine | DX: Z46.1 Encounter for fitting and adjustment of hearing aid (principal); H90.3 Sensorineural hearing loss, bilateral | CPT/HCPCS: V5266 ==

== ENCOUNTER 2021-07-28 14:04 | Outpatient (REF) | payer MEDICARE, SELFPAY ==
--- NOTE | 2021-07-28 16:38 | MHC.AU.AHA ---
Adult Audiological Evaluation Date of Visit: 07/28/21 Reason for Appointment: Audiological re-evaluation to monitor the status of Mr. Edwards's hearing loss. He has a known bilateral sensorineural hearing loss and uses hearing aids binaurally. He denies any significant changes to his hearing or medical history since his last visit. He notes that the hearing aids are working but need a cleaning. Previous Hearing Test Results: [facility] [place], 08/16/2019 - Mild sloping to severe sensorineural hearing loss bilaterally. Hearing Instrument History- Right Ear: Ms Access Database Developer: Phonak Model: [employer] ART ITC Serial Number: [id number] Battery Size: 312 Repair Warranty: Loss and Damage Warranty: Dispensed By: [facility] Date of Fittin01/28/2010 Hearing Instrument History- Left Ear: Ms Access Database Developer: Phonak Model: [employer] ART ITC Serial Number: [id number] Battery Size: 312 Warranty: 03/05/2021- Juan Jose All Make Loss and Damage Warranty: Dispensed By: [facility] Date of Fittin01/28/2010 Otoscopy: Right Ear: Partially occluded with cerumen Left Ear: Unremarkable Tympanometry: Tympanometry performed due to: To assess integrity of the middle ear system Right Ear: Normal Middle Ear System (Type A) Left Ear: Normal Middle Ear System (Type A) Hearing Evaluation: Transducer(s) Used: Insert Earphones, Bone Conduction Method: Conventional Audiometry Stimuli Used: Pure Tones Right Ear: Description of Hearing: Mild sloping to severe sensorineural hearing loss from 250-8000 Hz. Left Ear: Description of Hearing: Mild sloping to severe sensorineural hearing loss from 250-8000 Hz. Speech Recognition Threshold (SRT): Method Used: Monitored Live Voice Stimuli Used: Spondee Words Right Ear: 35 dBHL Left Ear: 40 dBHL Word Discrimination: Method: Recorded Lists Word Lists Used: NU-6 Right Ear: 56% at 75 dBHL, 84% at 80 dBHL Left Ear: 52% at 80 dBHL, 56% at 85 dBHL Comparison: Compared to the most recent evaluation: Hearing is stable. Recommendations: Audiological re-evaluation in one year. Follow-up with physician for cerumen removal. Hearing aid maintenance performed today. Diagnosis: Primary Diagnosis: H90.3 Bilateral Sensorineural Hearing Loss Services Performed: Comprehensive Audiological Evaluation (CPT 08589) Tympanometry (CPT 93865) Signature: Provider: Sadia Martinez, CCC-A
== END 2021-07-28 14:05 | disposition home or self-care (01) ==
LOC: HO.SH 14:04
PROVIDERS: Visit Provider Internal Medicine
DX: H90.3 Sensorineural hearing loss, bilateral (principal)
CPT/HCPCS: 92557; 92567

== ENCOUNTER 2021-08-04 12:40 | Outpatient (REF) | payer MEDICARE, SELFPAY ==
[2021-08-04 14:19] LABS: INTERNATIONAL NORM RATIO 1.2 (0.9-1.1); Prothrombin Time 13.7 SEC (9.9-13.0)
== END 2021-08-04 12:41 | disposition home or self-care (01) ==
LOC: HO.10HDLR 12:40
PROVIDERS: Visit Provider Internal Medicine
DX: I48.91 Unspecified atrial fibrillation (principal)
CPT/HCPCS: 36415; 85610

== ENCOUNTER 2021-08-12 12:07 | Outpatient (REF) | payer MEDICARE, SELFPAY ==
[2021-08-12 13:55] LABS: INTERNATIONAL NORM RATIO 1.6 (0.9-1.1); Prothrombin Time 18.8 SEC (9.9-13.0)
== END 2021-08-12 12:08 | disposition home or self-care (01) ==
LOC: HO.10HDLR 12:07
PROVIDERS: Visit Provider Internal Medicine
DX: I48.91 Unspecified atrial fibrillation (principal); Z79.01 Long term (current) use of anticoagulants
CPT/HCPCS: 36415; 85610

== ENCOUNTER 2021-08-28 11:58 | Outpatient (REF) | payer MEDICARE, SELFPAY ==
[2021-08-28 13:42] LABS: INTERNATIONAL NORM RATIO 3.2 (0.9-1.1); Prothrombin Time 37.3 SEC (9.9-13.0)
== END 2021-08-28 11:59 | disposition home or self-care (01) ==
LOC: HO.10HDL 11:58
PROVIDERS: PCP Internal Medicine; Visit Provider Internal Medicine
DX: I48.91 Unspecified atrial fibrillation (principal)
CPT/HCPCS: 36415; 85610

== ENCOUNTER 2021-09-15 10:23 | Outpatient (REF) | payer OTHER, MEDICARE, SELFPAY ==
[2021-09-15 10:54] LABS: COVID-19 Test Negative (Negative); IDNOW Serial# 9DD0AD1C
== END 2021-09-15 10:24 | disposition home or self-care (01) ==
LOC: HO.LNP 10:23
PROVIDERS: Visit Provider Internal Medicine
DX: Z20.822 Contact with and (suspected) exposure to COVID-19 (principal)
CPT/HCPCS: 87635

== ENCOUNTER 2021-09-21 20:27 | Inpatient (IN) | payer OTHER, MEDICARE, SELFPAY ==
--- NOTE | ~2021-09-21 | XR_ITS ---
EXAMINATION: XR CHEST CLINICAL INFORMATION: Chest congestion COMPARISON: Chest x-ray 01/25/2021 TECHNIQUE: Frontal view of the chest was obtained. 9:36 PM FINDINGS: Lungs are clear. No pulmonary vascular congestion. There is no pleural effusion. The heart size is normal. The cardiac and mediastinal contours are normal. There are calcifications of the thoracic aorta. There are multilevel degenerative changes of dorsal spine. XR/XR chest 1V IMPRESSION: Unremarkable examination.
[2021-09-21 20:59] VITALS: BP 209/105; PULSE 127; RESP 24; TEMP 36.1; O2SAT 94; BMI 28.5
--- NOTE | 2021-09-21 21:06 | ECG_ITS ---
Test Reason : tachycardia Blood Pressure : / mmHG Vent. 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
--- NOTE | 2021-09-21 21:31 | ECG_ITS ---
Test Reason : dyspnea Blood Pressure : / mmHG Vent. Rate : 098 BPM Atrial Rate : 000 BPM P-R Int : 000 ms QRS Dur : 160 ms QT Int : 462 ms P-R-T Axes : 000 076 -08 degrees QTc Int : 589 ms Atrial fibrillation with premature ventricular or aberrantly conducted complexes Right bundle branch block Septal infarct (cited on or before 28-JAN-2018) Possible Lateral infarct , age undetermined Inferior infarct (cited on or before 28-JAN-2018) Abnormal ECG When compared with ECG of 12-APR-2021 14:34, Atrial fibrillation has replaced Sinus rhythm Questionable change in initial forces of Septal leads T wave inversion less evident in Inferior leads Referred By: Kevin Owusu Electronically Signed By:Raj Mendez
[2021-09-21 21:38] LABS: Basophils Percent Auto 0.2 % (0-2); Mean Corpuscular HGB Conc 33.2 g/dl (31.0-36.0); PLT CLUMP 1; SCAN SMEAR FLAG 1
[2021-09-21 21:40] LABS: Eosinophils Percent Auto 0.2 % (0-4); Hematocrit 37.7 % (42.0-52.0); Hemoglobin 12.5 g/dl (14.0-18.0); Imm Gran Abs Auto 0.01 X10*3/uL (0.00-0.03); Imm Gran Pct Auto 0.2 % (0.0-0.4); Lymphocytes Absolute Auto 0.4 X10*3/uL (1.2-4.9); Lymphocytes Percent Auto 6.5 % (20-40); Mean Corpuscular Hemoglobin 31.8 pg (27.0-33.0); Mean Corpuscular Volume 95.9 fL (80.0-98.0); Mean Platelet Volume 10.1 fL (9.4-12.4); Monocytes Absolute Auto 0.7 X10*3/uL (0.1-1.2); Monocytes Percent Auto 11.9 % (2-11); Neutrophils Absolute Auto 4.6 x10*3/uL (2.0-8.3); Red Blood Count 3.93 X10*6/uL (4.60-5.80); Red Cell Distribution Width 14.4 % (11.0-16.0)
[2021-09-21 21:44] LABS: INTERNATIONAL NORM RATIO 1.6 (0.9-1.1); Prothrombin Time 18.4 SEC (9.9-13.0)
--- NOTE | 2021-09-21 21:46 | ED_ITS ---
HPI - General Adult General Chief complaint: Upper Respiratory Symptoms Stated complaint: Chest congestion Time Seen by Provider: 09/21/21 21:31 Source: patient History of Present Illness HPI narrative: This is an 86-year-old male who complains of shortness of breath that started last night. The patient has noted a cough and notes that he seems to produce phlegm and that he feels better temporarily after he clears the phlegm. He denies any fever. Denies any chest pain. He denies any URI symptoms/sore throat. He has noted some swelling in his feet and ankles recently. He does have a history of atrial fibrillation and is on Coumadin, cannot recall his other medicines. States he does have a history of an unspecified heart problem. He denies any abdominal pain, nausea, vomiting, diarrhea. Related Data Home Medications Medication Instructions Recorded Confirmed amlodipine 5 mg tablet 5 mg PO DAILY tab 08/27/20 04/12/21 finasteride 5 mg tablet 5 mg PO DAILY tab 08/27/20 04/12/21 warfarin 5 mg tablet 5 mg PO DAILY 08/27/20 04/12/21 Previous Rx's Medication Instructions Recorded furosemide 40 mg tablet 40 mg PO DAILY 30 Days #30 tab 01/27/21 valacyclovir 1 gram tablet 1 tab PO TID #3 tab 04/15/21 metoprolol succinate 50 mg 50 mg PO DAILY 90 Days #90 cap 08/11/21 tablet,extended release 24 hr amiodarone 200 mg tablet 200 mg PO DAILY #90 cap 09/02/21 Allergies Allergy/AdvReac Type Severity Reaction Status Date / Time No Known Allergies Allergy Mild NOT Verified 05/09/21 14:11 APPLICABLE Review of Systems Review of Systems: Yes all other systems are reviewed and are negative Constitutional: Constitutional: Reports as per HPI and Denies fever(s) Eyes: Eyes: Reports as per HPI and Reports no additional eye complaints ENT: Reports system reviewed and no additional complaints, except as documented, Reports as per HPI, Denies nasal congestion, Denies nasal discharge and Denies sore throat Cardiovascular: Cardiovascular: Reports as per HPI, Denies chest pain and Reports dyspnea Respiratory: Respiratory: Reports as per HPI, Reports cough and Reports dyspnea Gastrointestinal: Gastrointestinal: Reports as per HPI, Denies abdominal pain, Denies diarrhea and Denies vomiting Genitourinary: Genitourinary: Reports as per HPI, Denies hematuria, Denies dys uria and Denies urinary frequency Musculoskeletal: Musculoskeletal: Reports no additional musculoskeletal complaints and Denies numbness Integumentary/Breasts: Skin/Breast: Reports as per HPI, Denies rash and Reports other (Leg swelling) Neurologic: Reports as per HPI, Denies focal weakness, Denies numbness and Denies Sensory deficit (Neuro) Psychiatric: Psychiatric: Reports no additional psychiatric complaints and Reports as per HPI Endocrine: Endocrine: Reports no additional endocrine complaints and Reports as per HPI Hematologic/Lymphatic: Hematologic/Lymphatic: Reports no additional hemato logic/lymphatic complaints, Reports as per HPI and Reports other (No peripheral edema) [facility] Past Medical History Medical History (Updated 09/21/21 @ 23:40 by Kevin Owusu MD) (HFpEF) heart failure with preserved ejection fraction BPH (benign prostatic hyperplasia) CHF (congestive heart failure) Herpes zoster, ocular HTN (hypertension) Osteoarthritis Paroxysmal atrial fibrillation Pleural effusion Pneumonitis Surgical History H/O cataract extraction History of cardioversion History of total right hip arthroplasty Status post colonoscopy with polypectomy Family History Family History Father No problems noted. Mother No problems noted. Social History Social History Household Members: Spouse Housing: House Do you presently have visiting nurse or other home services: No Alcohol intake: never Patient Tobacco Use Status: Former Tobacco user Tobacco use type: Cigarette Years Smoked: 18 years Advance Directives: Yes Advance Directives Information Provided: Yes Advance Directives on File: Yes Advance Directives Date on File: 04/16/21 Current occupational status: retired Physical Exam Vital Signs: Vital Signs: Last Vital Signs Temp 97.0 F 09/21/21 20:59 Pulse 127 H 09/21/21 20:59 Resp 24 H 09/21/21 20:59 BP 209/105 H 09/21/21 20:59 Pulse Ox 94 09/21/21 20:59 BMI result Body Mass Index 28.5 Const: Other: Hard of hearing, no distress General: cooperative, no acute distress and alert Orientation/consciousness: patient oriented x3 HENMT: Head: Yes normal to inspection Eyes: General: appearance normal, both eyes and all related structures Eyelids: Yes eyelids normal Conjunctivae: conjunctivae normal Pupils: Equal, round and reactive pupils present Neck: Neck: Yes normal visual inspection and Yes supple Chest: Chest palpation & inspection: normal inspection of the chest Resp: Effort & Inspection: normal respiratory effort Auscultation: clear to auscultation bilaterally Cardio: Rate: tachycardic Rhythm: abnormal rhythm irregularly irregular Heart sounds: S1 normal heart sound present, S2 normal heart sound present, no gallops, no murmurs and no rubs GI: Palpation (GI): Soft to palpation, nontender and Other GI palpation findings present (Non-distended) Auscultation: normal bowel sounds Skin: General skin exam: no rashes or lesions noted Neuro: General: patient oriented x3, no focal motor deficits and CN's II-XI intact bilaterally Cranial nerves: Yes Equal, round and reactive pupils present Cognition (Neuro): normal cognition Motor exam (neuro): 5/5 motor strength present throughout Sensory Exam: No Sensory deficit (Neuro) Extrem: General: Yes normal to inspection and No no pedal edema (2+ pitting edema to lower legs and feet bilaterally) Psych: Appearance: grossly normal Affect: normal affect Medical Decision Making MDM Narrative Medical decision making narrative: Patient with shortness of breath since last evening, with some associated cough. Patient presented with AFib in RVR despite being on amiodarone, metoprolol, amlodipine. Patient does have 2+ pitting peripheral edema. Chest x-ray did not show congestion however BNP is elevated around 1000-patient may have a degree of right heart failure. Patient does have an elevation of his troponin above baseline, around 70. EKG grossly unchanged from prior except for more frequent PVCs. Patient was treated with metoprolol IV, amiodarone p.o., and Lasix IV, with improvement in his dyspnea and heart rat e. Critical care time for this life-threatening illness exclusive of all other billable procedures was approximately 45 minutes including initial evaluation of the patient, ordering tests, x-ray interpretation, EKG interpretation, medical consultation, documentation, reevaluation. The patient is to be admitted to the hospitalist service, Dr. Travis bear. Lab Data Lab results reviewed: Yes I reviewed the patient's lab results. Result diagrams: 09/21/21 21:31 09/21/21 21:31 Labs: Lab Results 09/21/21 09/21/21 09/21/21 Range/Units 21:31 21:31 21:31 WBC 5.7 (4.8-10.8) X10*3/uL RBC 3.93 L (4.60-5.80) X10*6/uL Hgb 12.5 L (14.0-18.0) g/dl Hct 37.7 L (42.0-52.0) % MCV 95.9 (80.0-98.0) fL MCH 31.8 (27.0-33.0) pg MCHC 33.2 (31.0-36.0) g/dl RDW 14.4 (11.0-16.0) % Plt Count 100 L (160-400) X10*3/uL MPV 10.1 (9.4-12.4) fL Immature Gran % (Auto) 0.2 (0.0-0.4) % Neut % (Auto) 81.0 H (45-73) % Lymph % (Auto) 6.5 L (20-40) % [place] % (Auto) 11.9 H (2-11) % Eos % (Auto) 0.2 (0-4) % Baso % (Auto) 0.2 (0-2) % Lymph # (Auto) 0.4 L (1.2-4.9) X10*3/uL [place] # (Auto) 0.7 (0.1-1.2) X10*3/uL Eos # (Auto) 0.0 (0.0-0.4) X10*3/uL Baso # (Auto) 0.0 (0.0-0.2) X10*3/uL Abs Immat Gran (auto) 0.01 (0.00-0.03) X10*3/uL Absolute Neuts (auto) 4.6 (2.0-8.3) x10*3/uL Absolute Nucleated RBC 0.000 (0.0-0.012) X10*3/uL Nucleated RBC % (auto) 0.0 (0.0-0.2) /100WBC PT 18.4 H (9.9-13.0) SEC INR 1.6 H (0.9-1.1) Sodium 136 (135-145) mmol/L Potassium 3.9 (3.3-5.1) mmol/L Chloride 96 (96-108) mmol/L Carbon Dioxide 29 (22-29) mmol/L Anion Gap 15 (12-20) BUN 18 H (9-16) mg/dL Creatinine 0.98 (0.5-1.4) mg/dL Estim Creat Clear Calc 59.2 Estimated GFR > 60 Random Glucose 113 (60-115) mg/dL Calcium 8.8 D (8.4-10.2) mg/dL Magnesium 1.6 (1.6-2.6) mg/dL Total Bilirubin 0.7 (0.0-1.0) mg/dL AST 26 D (5-37) U/L ALT 13 (0-40) U/L Alkaline Phosphatase 85 (39-117) U/L Troponin I High Sens (<3.5-35.0) ng/L B-Natriuretic Peptide (<100) pg/mL Total Protein 7.0 (6.5-8.0) g/dL Albumin 4.0 (3.5-5.0) g/dL COVID-19 (TAMI) (Negative) COVID-19 Clin Com 09/21/21 09/21/21 Range/Units 21:31 21:31 WBC (4.8-10.8) X10*3/uL RBC (4.60-5.80) X10*6/uL Hgb (14.0-18.0) g/dl Hct (42.0-52.0) % MCV (80.0-98.0) fL MCH (27.0-33.0) pg MCHC (31.0-36.0) g/dl RDW (11.0-16.0) % Plt Count (160-400) X10*3/uL MPV (9.4-12.4) fL Immature Gran % (Auto) (0.0-0.4) % Neut % (Auto) (45-73) % Lymph % (Auto) (20-40) % [place] % (Auto) (2-11) % Eos % (Auto) (0-4) % Baso % (Auto) (0-2) % Lymph # (Auto) (1.2-4.9) X10*3/uL [place] # (Auto) (0.1-1.2) X10*3/uL Eos # (Auto) (0.0-0.4) X10*3/uL Baso # (Auto) (0.0-0.2) X10*3/uL Abs Immat Gran (auto) (0.00-0.03) X10*3/uL Absolute Neuts (auto) (2.0-8.3) x10*3/uL Absolute Nucleated RBC (0.0-0.012) X10*3/uL Nucleated RBC % (auto) (0.0-0.2) /100WBC PT (9.9-13.0) SEC INR (0.9-1.1) Sodium (135-145) mmol/L Potassium (3.3-5.1) mmol/L Chloride (96-108) mmol/L Carbon Dioxide (22-29) mmol/L Anion Gap (12-20) BUN (9-16) mg/dL Creatinine (0.5-1.4) mg/dL Estim Creat Clear Calc Estimated GFR Random Glucose (60-115) mg/dL Calcium (8.4-10.2) mg/dL Magnesium (1.6-2.6) mg/dL Total Bilirubin (0.0-1.0) mg/dL AST (5-37) U/L ALT (0-40) U/L Alkaline Phosphatase (39-117) U/L Troponin I High Sens 71.9 H (<3.5-35.0) ng/L B-Natriuretic Peptide 1005 H (<100) pg/mL Total Protein (6.5-8.0) g/dL Albumin (3.5-5.0) g/dL COVID-19 (TAMI) Positive A (Negative) COVID-19 Clin Com See Note Imaging Data Chest x-ray: Radiologist's impression: FINDINGS: ?Lungs are clear. No pulmonary vascular congestion. There is no pleural effusion. The heart size is normal. The cardiac and mediastinal contours are normal. There are calcifications of the thoracic aorta. There are multilevel degenerative changes of dorsal spine.? ? ECG Data Attestation: I personally reviewed and interpreted this ECG as follows: Interpretation: Atrial fibrillation with ventricular response of 98 (after treatment), with little red blood. Frequent PVCs. Inferior Q-waves fluid EKG grossly unchanged from 04/12/2021 Discharge Plan Discharge Clinical Impression: Atrial fibrillation with rapid ventricular response, COVID-19, Acute dyspnea, Edema, peripheral Patient Disposition: Admitted as Observation Prescriptions: No Action metoprolol succinate 50 mg tablet extended release 24 hr 50 mg PO DAILY 90 Days Qty: 90 RF: 0 amiodarone 200 mg tablet 200 mg PO DAILY Qty: 90 RF: 0 valacyclovir 1 gram tablet 1 tab PO TID Qty: 3 RF: 0 furosemide 40 mg tablet 40 mg PO DAILY 30 Days Qty: 30 RF: 0 amlodipine 5 mg tablet 5 mg PO DAILY RF: 0 warfarin 5 mg tablet 5 mg PO DAILY RF: 0 finasteride 5 mg tablet 5 mg PO DAILY RF: 0
[2021-09-21 21:52] LABS: Anion Gap 15 (12-20); Blood Urea Nitrogen 18 mg/dL (9-16); Calcium 8.8 mg/dL (8.4-10.2); Carbon Dioxide 29 mmol/L (22-29); Chloride 96 mmol/L (96-108); Creatinine Clr Calc Pharmacy 59.2; Estimated Glomerular Filt Rate > 60; Glucose Random 113 mg/dL (60-115); Potassium 3.9 mmol/L (3.3-5.1); Sodium 136 mmol/L (135-145)
[2021-09-21 21:54] LABS: COVID-19 Test Positive (Negative); IDNOW Serial# 9DD0AD1C
[2021-09-21 21:56] LABS: Troponin-I High Sensitivity 71.9 ng/L (<3.5-35.0)
[2021-09-21 22:01] LABS: MANUAL DIFF FLAG NO; Platelet Count 100 X10*3/uL (160-400); White Blood Count 5.7 X10*3/uL (4.8-10.8)
[2021-09-21 22:10] LABS: Alanine Aminotransferase 13 U/L (0-40); Alkaline Phosphatase 85 U/L (39-117); Aspartate Amino Transferase 26 U/L (5-37); Bilirubin Total 0.7 mg/dL (0.0-1.0); Magnesium 1.6 mg/dL (1.6-2.6)
[2021-09-21 22:12] LABS: B Type Natriuretic Peptide 1005 pg/mL (<100)
[2021-09-21] MEDS: Amiodarone HCL 200 MG TABLET PO (22:14)
[2021-09-21] MEDS: Metoprolol Tartrate 5 MG/5 ML VIAL IVPUSH (22:19)
[2021-09-21] MEDS: Furosemide 40 MG/4 ML VIAL IVPUSH (22:19)
[2021-09-22] VITALS (7 sets, daily range): BP systolic 146–183; BP diastolic 79–120; PULSE 86–108; RESP 14–20; TEMP 36.4–36.8; O2SAT 94–99
--- NOTE | 2021-09-22 00:20 | PM.IMHP ---
History of Present Illness Date of Service: 09/22/21 Chief Complaint: SOB 86-year-old male with past medical history of heart failure, hypertension, paroxysmal AFib, who presents to the hospital with complaints of cough and congestion as well as shortness of breath that started last night. Patient reports that the size these 3 symptoms he has no other symptoms and he kept repeating that. He denies any orthopnea, no PND, no chest pain, no palpitations, no abdominal pain nausea or vomiting, no diarrhea constipation, no urinary symptoms and no lower extremity edema. He denies any fever or chills. Patient is vaccinated Against COVID with Que[employer] vaccine on arrival to the ED patient noted to have a temp of 97?, heart rate of 127 in AFib with RVR, respiratory rate of 24, satting 94% on room air, blood pressure of 209/105. Labs are significant for WBC count of 5.7, hemoglobin 12.5, PT of 18.4, in our of 1.6, high sensitive troponin of 71, BNP of 1000, COVID-19 positive. Patient given 5 mg of IV metoprolol with improvement his heart rate Chest x-ray negative Review of Systems Review of Systems: Yes all other systems are reviewed and are negative [facility] Medical History (HFpEF) heart failure with preserved ejection fraction BPH (benign prostatic hyperplasia) CHF (congestive heart failure) Herpes zoster, ocular HTN (hypertension) Osteoarthritis Paroxysmal atrial fibrillation Pleural effusion Pneumonitis Family History Father No problems noted. Mother No problems noted. Surgical History H/O cataract extraction History of cardioversion History of total right hip arthroplasty Status post colonoscopy with polypectomy Social History Household Members: Spouse Housing: House Do you presently have visiting nurse or other home services: No Alcohol intake: current Alcohol intake frequency: holidays/special occasions only Patient Tobacco Use Status: Former Tobacco user Tobacco use type: Cigarette Years Smoked: 18 years Use of substances other than those prescribed or required for medical reasons: No Advance Directives: Yes Advance Directives Information Provided: Yes Advance Directives on File: Yes Advance Directives Date on File: 04/16/21 Current occupational status: retired Meds Allergies Allergy/AdvReac Type Severity Reaction Status Date / Time No Known Allergies Allergy Mild NOT Verified 05/09/21 14:11 APPLICABLE Active Medications: Current Medications Pharmacy Consult (Consult Rx Perform Med Rec) 1 each MISCELLANE ONCE PRN PRN Reason: Consult order Home Medications Medication Instructions Recorded Confirmed Last Taken Type amlodipine 5 mg tablet 5 mg PO DAILY tab 08/27/20 09/22/21 01/24/21 History finasteride 5 mg tablet 5 mg PO DAILY tab 08/27/20 09/22/21 01/24/21 History warfarin 5 mg tablet 5 mg PO DAILY 08/27/20 09/22/21 01/24/21 History Physical Exam Vital Signs and Narrative: Vital Signs: Last Vital Signs Temp 97.0 F 09/21/21 20:59 Pulse 127 H 09/21/21 20:59 Resp 24 H 09/21/21 20:59 BP 209/105 H 09/21/21 20:59 Pulse Ox 94 09/21/21 20:59 BMI result Body Mass Index 28.5 Const: General: cooperative and no acute distress Orientation/consciousness: patient oriented x3 Eyes: General: appearance normal, both eyes and all related structures Pupils: Equal, round and reactive pupils present Resp: Effort & Inspection: normal respiratory effort Auscultation: clear to auscultation bilaterally Cardio: Other: irregular rhythm Rhythm: regular rhythm GI: Palpation (GI): Soft to palpation Auscultation: normal bowel sounds Skin: General skin exam: no rashes or lesions noted Neuro: General: patient oriented x3 Cranial nerves: Yes Equal, round and reactive pupils present Cognition (Neuro): normal cognition Extrem: General: Yes normal to inspection and Yes no pedal edema Results Labs CBC and Chem 7: 09/21/21 21:31 09/21/21 21:31 Labs: Laboratory Results - last 24 hr 09/21/21 09/21/21 09/21/21 21:31 21:31 21:31 MCV 95.9 MCH 31.8 MCHC 33.2 RDW 14.4 Plt Count 100 L MPV 10.1 Immature Gran % (Auto) 0.2 Neut % (Auto) 81.0 H Lymph % (Auto) 6.5 L [place] % (Auto) 11.9 H Eos % (Auto) 0.2 Baso % (Auto) 0.2 Lymph # (Auto) 0.4 L [place] # (Auto) 0.7 Eos # (Auto) 0.0 Baso # (Auto) 0.0 Abs Immat Gran (auto) 0.01 Absolute Neuts (auto) 4.6 Absolute Nucleated RBC 0.000 Nucleated RBC % (auto) 0.0 PT 18.4 H INR 1.6 H Anion Gap 15 Estim Creat Clear Calc 59.2 Estimated GFR > 60 Random Glucose 113 Calcium 8.8 D Magnesium 1.6 Total Bilirubin 0.7 AST 26 D ALT 13 Alkaline Phosphatase 85 Troponin I High Sens B-Natriuretic Peptide Total Protein 7.0 Albumin 4.0 COVID-19 (TAMI) COVID-19 [employer] Com 09/21/21 09/21/21 21:31 21:31 MCV MCH MCHC RDW Plt Count MPV Immature Gran % (Auto) Neut % (Auto) Lymph % (Auto) [place] % (Auto) Eos % (Auto) Baso % (Auto) Lymph # (Auto) [place] # (Auto) Eos # (Auto) Baso # (Auto) Abs Immat Gran (auto) Absolute Neuts (auto) Absolute Nucleated RBC Nucleated RBC % (auto) PT INR Anion Gap Estim Creat Clear Calc Estimated GFR Random Glucose Calcium Magnesium Total Bilirubin AST ALT Alkaline Phosphatase Troponin I High Sens 71.9 H B-Natriuretic Peptide 1005 H Total Protein Albumin COVID-19 (TAMI) Positive A COVID-19 Clin Com See Note Imaging Radiologist's Impressions: Impressions Chest X-Ray 09/21/21 21:39 IMPRESSION: Unremarkable examination. Assessment and Plan (1) Atrial fibrillation with rapid ventricular response: Status: Acute (2) COVID-19: Status: Acute (3) CHF exacerbation: Status: Acute 86-year-old male past medical history of CHF as well as AFib presents the hospital found to be in AFib with RVR # AFib with RVR -most likely secondary to CHF exacerbation as well as infection with COVID-19 - patient received Lopressor 5 mg IV with improvement his symptoms - at this time will obtain an echocardiogram, monitor, and resume home medications of amiodarone and metoprolol - resume warfarin # CHF exacerbation - has dyspnea, elevated BNP - will treat with IV Lasix -obtain echocardiogram and cardiology consult # COVID-19 infection - fully vaccinated with Pfizer - not hypoxic - monitor respiratory status # history of coronary artery disease - is elevated troponin with no chest pain and no EKG changes suggestive of ACS - will continue home medications, trend troponin DVT prophylaxis: Warfarin Quality Stroke Does the patient have a stroke diagnosis?: No VTE Prior VTE?: No VTE Risk Level:: Medical - moderate - high VTE Device Contraindication: Treatment Not Indicated VTE Drug Contraindication: N/A - Med Ordered
--- NOTE | 2021-09-22 00:55 | P.HPHOSP_ITS ---
History of Present Illness Date of Service: 09/22/21 [facility] Medical History (Updated 09/21/21 @ 23:40 by Kevin Owusu MD) (HFpEF) heart failure with preserved ejection fraction BPH (benign prostatic hyperplasia) CHF (congestive heart failure) Herpes zoster, ocular HTN (hypertension) Osteoarthritis Paroxysmal atrial fibrillation Pleural effusion Pneumonitis Family History Father No problems noted. Mother No problems noted. Surgical History H/O cataract extraction History of cardioversion History of total right hip arthroplasty Status post colonoscopy with polypectomy Social History Household Members: Spouse Housing: House Do you presently have visiting nurse or other home services: No Alcohol intake: never Patient Tobacco Use Status: Former Tobacco user Tobacco use type: Cigarette Years Smoked: 18 years Advance Directives: Yes Advance Directives Information Provided: Yes Advance Directives on File: Yes Advance Directives Date on File: 04/16/21 Current occupational status: retired [email or web address] Allergies Allergy/AdvReac Type Severity Reaction Status Date / Time No Known Allergies Allergy Mild NOT Verified 05/09/21 14:11 APPLICABLE Active Medications: Current Medications Pharmacy Consult (Consult Rx Perform Med Rec) 1 each MISCELLANE ONCE PRN PRN Reason: Consult order Home Medications Medication Instructions Recorded Confirmed Last Taken Type amlodipine 5 mg tablet 5 mg PO DAILY tab 08/27/20 04/12/21 01/24/21 History finasteride 5 mg tablet 5 mg PO DAILY tab 08/27/20 04/12/21 01/24/21 History warfarin 5 mg tablet 5 mg PO DAILY 08/27/20 04/12/21 01/24/21 History Physical Exam Vital Signs and Narrative: Vital Signs: Last Vital Signs Temp 97.0 F 09/21/21 20:59 Pulse 127 H 09/21/21 20:59 Resp 24 H 09/21/21 20:59 BP 209/105 H 09/21/21 20:59 Pulse Ox 94 09/21/21 20:59 BMI result Body Mass Index 28.5 Results Labs CBC and Chem 7: 09/21/21 21:31 09/21/21 21:31 Labs: Laboratory Results - last 24 hr 09/21/21 09/21/21 09/21/21 21:31 21:31 21:31 MCV 95.9 MCH 31.8 MCHC 33.2 RDW 14.4 Plt Count 100 L MPV 10.1 Immature Gran % (Auto) 0.2 Neut % (Auto) 81.0 H Lymph % (Auto) 6.5 L [place] % (Auto) 11.9 H Eos % (Auto) 0.2 Baso % (Auto) 0.2 Lymph # (Auto) 0.4 L [place] # (Auto) 0.7 Eos # (Auto) 0.0 Baso # (Auto) 0.0 Abs Immat Gran (auto) 0.01 Absolute Neuts (auto) 4.6 Absolute Nucleated RBC 0.000 Nucleated RBC % (auto) 0.0 PT 18.4 H INR 1.6 H Anion Gap 15 Estim Creat Clear Calc 59.2 Estimated GFR > 60 Random Glucose 113 Calcium 8.8 D Magnesium 1.6 Total Bilirubin 0.7 AST 26 D ALT 13 Alkaline Phosphatase 85 Troponin I High Sens B-Natriuretic Peptide Total Protein 7.0 Albumin 4.0 COVID-19 (TAMI) COVID-[employer] 09/21/21 09/21/21 21:31 21:31 MCV MCH MCHC RDW Plt Count MPV Immature Gran % (Auto) Neut % (Auto) Lymph % (Auto) Hayes % (Auto) Eos % (Auto) Baso % (Auto) Lymph # (Auto) Hayes # (Auto) Eos # (Auto) Baso # (Auto) Abs Immat Gran (auto) Absolute Neuts (auto) Absolute Nucleated RBC Nucleated RBC % (auto) PT INR Anion Gap Estim Creat Clear Calc Estimated GFR Random Glucose Calcium Magnesium Total Bilirubin AST ALT Alkaline Phosphatase Troponin I High Sens 71.9 H B-Natriuretic Peptide 1005 H Total Protein Albumin COVID-19 (TAMI) Positive A COVID-19 [employer] See Note Imaging Radiologist's Impressions: Impressions Chest X-Ray 09/21/21 21:39 IMPRESSION: Unremarkable examination.
--- NOTE | 2021-09-22 01:02 | PC.NURSE ---
I assumed care of this pt upon his arrival to bed 7 from [facility] where he was noted to have rapid Afib. The pt states he came to the ED this evening for evaluation of congestion , cough. He appears well - respirations, at rest, are non-labored. he appears mildly short of breath with minimal exertion (sitting on edge of bed). He is speaking in full sentences, RR WNL while at rest, increased slightly with exertion. Room air sat's remain 94% or better. Skin pink/warm/dry. Afib on bedside monitor, rate 110's. He denies chest pain. No nausea or vomiting. He is taking PO fluids without difficulty. Will continue to monitor.
[2021-09-22 07:37] LABS: MANUAL DIFF FLAG NO
[2021-09-22 07:51] LABS: Anion Gap 15 (12-20); Blood Urea Nitrogen 17 mg/dL (9-16); Calcium 8.8 mg/dL (8.4-10.2); Carbon Dioxide 32 mmol/L (22-29); Chloride 97 mmol/L (96-108); Creatinine Clr Calc Pharmacy 56.9; Estimated Glomerular Filt Rate > 60; Glucose Random 93 mg/dL (60-115); Potassium 3.6 mmol/L (3.3-5.1); Sodium 140 mmol/L (135-145)
--- NOTE | 2021-09-22 07:51 | PHA.MEDREC ---
Pharmacy Consult ? Medication Reconciliation Pharmacy has reviewed the medication reconciliation completed by Seven Mann. Patient reports no longer taking Furosemide and he has no idea what valacylovir is. Reports taking amlodipine daily last filled in January 2020 for 1 tablet BID. He reports he takes Warfarin 1 tablet alternative with 2 tablets. He think he might be on atenolol but was not sure. Gege Sauceda, PharmD
[2021-09-22 07:57] LABS: Troponin-I High Sensitivity 74.2 ng/L (<3.5-35.0)
[2021-09-22 08:07] LABS: Basophils Percent Auto 0.3 % (0-2); Hematocrit 36.6 % (42.0-52.0); Hemoglobin 12.1 g/dl (14.0-18.0); Imm Gran Abs Auto 0.01 X10*3/uL (0.00-0.03); Imm Gran Pct Auto 0.3 % (0.0-0.4); Lymphocytes Absolute Auto 0.4 X10*3/uL (1.2-4.9); Lymphocytes Percent Auto 9.1 % (20-40); Mean Corpuscular HGB Conc 33.1 g/dl (31.0-36.0); Mean Corpuscular Hemoglobin 31.8 pg (27.0-33.0); Mean Corpuscular Volume 96.1 fL (80.0-98.0); Mean Platelet Volume 10.4 fL (9.4-12.4); Monocytes Absolute Auto 0.7 X10*3/uL (0.1-1.2); Monocytes Percent Auto 16.7 % (2-11); Neutrophils Absolute Auto 2.9 x10*3/uL (2.0-8.3); Neutrophils Percent Auto 73.6 % (45-73); Platelet Count 96 X10*3/uL (160-400); Red Blood Count 3.81 X10*6/uL (4.60-5.80); Red Cell Distribution Width 14.6 % (11.0-16.0)
[2021-09-22] MEDS: Amiodarone HCL 200 MG TABLET PO (09:04)
[2021-09-22] MEDS: Furosemide 40 MG/4 ML VIAL IVPUSH ×2 (09:04→19:03)
[2021-09-22] MEDS: Metoprolol Succinate ER 50 MG TAB.ER.24H PO (09:05)
[2021-09-22] MEDS: 0.9 % Sodium Chloride Flush 3 ML SYRINGE IVFLUSH ×2 (09:05→19:02)
[2021-09-22] MEDS: amLODIPine Besylate 5 MG TABLET PO (09:05)
[2021-09-22] MEDS: Finasteride 5 MG TABLET PO (09:07)
--- NOTE | 2021-09-22 10:32 | P.CONCA_ITS ---
History of Present Illness History of Present Illness Date of Service: 09/22/21 Requesting physician: Kirstin Klein Chief complaint: afib w rvr, chf, covid Narrative: 86-year-old gentleman presented for shortness of breath. He has known history of atrial fibrillation has been amiodarone Coumadin. He also takes Toprol XL. He said he was coughing a lot and was short of breath and after talking to his primary care physician he came to the emergency department. His BNP was elevated and he was thought to be in heart failure was started on diuretics. He also was found to have COVID test positive. He has been vaccinated in the past. His chest x-ray was normal and did not show any pneumonia or heart failure. He was in AFib with RVR but he is saying that he never gets symptoms from atrial fibrillation. He has been diuresed and is feeling better at this stage. His heart rate also has slowed down. [facility] Past Medical History Medical History (HFpEF) heart failure with preserved ejection fraction BPH (benign prostatic hyperplasia) CHF (congestive heart failure) Herpes zoster, ocular HTN (hypertension) Osteoarthritis Paroxysmal atrial fibrillation Pleural effusion Pneumonitis Family History Family History Father No problems noted. Mother No problems noted. Surgical History Surgical History H/O cataract extraction History of cardioversion History of total right hip arthroplasty Status post colonoscopy with polypectomy Social History Social History Household Members: Spouse Housing: House Do you presently have visiting nurse or other home services: No Alcohol intake: current Alcohol intake frequency: holidays/special occasions only Patient Tobacco Use Status: Former Tobacco user Tobacco use type: Cigarette Years Smoked: 18 years Use of substances other than those prescribed or required for medical reasons: No Advance Directives: Yes Advance Directives Information Provided: Yes Advance Directives on File: Yes Advance Directives Date on File: 04/16/21 service: Yes (RESERVES) Current occupational status: retired Meds Allergies Allergy/AdvReac Type Severity Reaction Status Date / Time No Known Allergies Allergy Mild NOT Verified 05/09/21 14:11 APPLICABLE Active Medications: Current Medications Acetaminophen (Acetaminophen 325 Mg Tablet) 650 mg PO Q6H PRN PRN Reason: Pain, Mild (Pain Scale 1-3) Amiodarone HCl (Amiodarone Hcl 200 Mg Tablet) 200 mg PO DAILY [facility] Last Admin: 09/22/21 09:04 Dose: 200 mg Documented by: Amlodipine Besylate (Amlodipine Besylate 5 Mg Tablet) 5 mg PO DAILY LUPE; Protoc ol Last Admin: 09/22/21 09:05 Dose: 5 mg Documented by: Docusate Sodium (Docusate Sodium 100 Mg Capsule) 100 mg PO DAILY PRN PRN Reason: Constipation Finasteride (Finasteride 5 Mg Tablet) 5 mg PO DAILY [facility] Last Admin: 09/22/21 09:07 Dose: 5 mg Documented by: Furosemide (Furosemide 40 Mg/4 Ml Vial) 40 mg IVPUSH BID@0900,1800 [facility]; Protocol Last Admin: 09/22/21 09:04 Dose: 40 mg Documented by: Metoprolol Succinate (Metoprolol Succinate Er 50 Mg Tab.Er.24h) 50 mg PO DAILY [facility]; Protocol Last Admin: 09/22/21 09:05 Dose: 50 mg Documented by: Ondansetron HCl (Ondansetron Hcl 4 Mg/2 Ml Vial) 4 mg IVPUSH Q8H PRN PRN Reason: Nausea and Vomiting Pharmacy Consult (Consult Rx Perform Med Rec) 1 each MISCELLANE ONCE PRN PRN Reason: Consult order Sodium Chloride (0.9 % Sodium Chloride Flush 3 Ml Syringe) 3 ml IVFLUSH QSHIFT [facility] Last Admin: 09/22/21 09:05 Dose: 3 ml Documented by: Warfarin Sodium (Warfarin Sodium 5 Mg Tablet) 5 mg PO Q48H [facility] Warfarin Sodium (Warfarin Sodium 5 Mg Tablet) 10 mg PO Q48H [facility] Home Medications Medication Instructions Recorded Confirmed Last Taken Type amlodipine 5 mg tablet 5 mg PO DAILY tab 08/27/20 09/22/21 01/24/21 History finasteride 5 mg tablet 5 mg PO DAILY tab 08/27/20 09/22/21 01/24/21 History warfarin 5 mg tablet 5 mg PO Q48H 08/27/20 09/22/21 09/20/21 History warfarin 5 mg tablet (Jantoven) 10 mg PO Q48H 09/22/21 09/22/21 09/21/21 History Physical Exam Vital Signs: Vital Signs: Last Vital Signs Temp 98.3 F 09/22/21 10:24 Pulse 86 09/22/21 10:24 Resp 16 09/22/21 10:24 BP 146/79 H 09/22/21 10:24 Pulse Ox 94 09/22/21 10:24 BMI result Body Mass Index 28.5 GENERAL APPEARANCE: in no acute distress, pleasant. NECK: no carotid bruit, no obvious jugular venous distention. SKIN: no suspicious lesions, warm and dry. HEART: no murmurs, irregular rate and rhythm. LUNGS: clear to auscultation bilaterally. ABDOMEN: soft, nontender. EXTREMITIES: no edema. PERIPHERAL PULSES: equal. NEUROLOGIC: No gross deficits, AAO X 3 Objective Labs and Meds Result diagrams: 09/22/21 07:17 09/22/21 07:17 Lab results: Laboratory Results - last 24 hr 09/21/21 09/21/21 09/21/21 21:31 21:31 21:31 WBC 5.7 RBC 3.93 L Hgb 12.5 L Hct 37.7 L MCV 95.9 MCH 31.8 MCHC 33.2 RDW 14.4 Plt Count 100 L MPV 10.1 Immature Gran % (Auto) 0.2 Neut % (Auto) 81.0 H Lymph % (Auto) 6.5 L [place] % (Auto) 11.9 H Eos % (Auto) 0.2 Baso % (Auto) 0.2 Lymph # (Auto) 0.4 L [place] # (Auto) 0.7 Eos # (Auto) 0.0 Baso # (Auto) 0.0 Abs Immat Gran (auto) 0.01 Absolute Neuts (auto) 4.6 Absolute Nucleated RBC 0.000 Nucleated RBC % (auto) 0.0 PT 18.4 H INR 1.6 H Sodium 136 Potassium 3.9 Chloride 96 Carbon Dioxide 29 Anion Gap 15 BUN 18 H Creatinine 0.98 Estim Creat Clear Calc 59.2 Estimated GFR > 60 Random Glucose 113 Calcium 8.8 D Magnesium 1.6 Total Bilirubin 0.7 AST 26 D ALT 13 Alkaline Phosphatase 85 Troponin I High Sens B-Natriuretic Peptide Total Protein 7.0 Albumin 4.0 COVID-19 (TAMI) COVID-19 Clin Com 09/21/21 09/21/21 09/22/21 21:31 21:31 07:17 WBC 4.0 L RBC 3.81 L Hgb 12.1 L Hct 36.6 L MCV 96.1 MCH 31.8 MCHC 33.1 RDW 14.6 Plt Count 96 L MPV 10.4 Immature Gran % (Auto) 0.3 Neut % (Auto) 73.6 H Lymph % (Auto) 9.1 L [place] % (Auto) 16.7 H Eos % (Auto) 0.0 Baso % (Auto) 0.3 Lymph # (Auto) 0.4 L [place] # (Auto) 0.7 Eos # (Auto) 0.0 Baso # (Auto) 0.0 Abs Immat Gran (auto) 0.01 Absolute Neuts (auto) 2.9 Absolute Nucleated RBC 0.000 Nucleated RBC % (auto) 0.0 PT INR Sodium Potassium Chloride Carbon Dioxide Anion Gap BUN Creatinine Estim Creat Clear Calc Estimated GFR Random Glucose Calcium Magnesium Total Bilirubin AST ALT Alkaline Phosphatase Troponin I High Sens 71.9 H B-Natriuretic Peptide 1005 H Total Protein Albumin COVID-19 (TAMI) Positive A COVID-19 Clin Com See Note 09/22/21 09/22/21 07:17 07:17 WBC RBC Hgb Hct MCV MCH MCHC RDW Plt Count MPV Immature Gran % (Auto) Neut % (Auto) Lymph % (Auto) [place] % (Auto) Eos % (Auto) Baso % (Auto) Lymph # (Auto) [place] # (Auto) Eos # (Auto) Baso # (Auto) Abs Immat Gran (auto) Absolute Neuts (auto) Absolute Nucleated RBC Nucleated RBC % (auto) PT INR Sodium 140 Potassium 3.6 Chloride 97 Carbon Dioxide 32 H Anion Gap 15 BUN 17 H Creatinine 1.02 Estim Creat Clear Calc 56.9 Estimated GFR > 60 Random Glucose 93 Calcium 8.8 Magnesium Total Bilirubin AST ALT Alkaline Phosphatase Troponin I High Sens 74.2 H B-Natriuretic Peptide Total Protein Albumin COVID-19 (TAMI) COVID-19 Clin Com Imaging Radiologist's impression: Impressions Chest X-Ray 09/21/21 21:39 IMPRESSION: Unremarkable examination. Assessment and Plan (1) CHF exacerbation: Status: Acute (2) Atrial fibrillation with rapid ventricular response: Status: Acute (3) COVID-19: Status: Acute Pleasant 86 year gentleman presenting for AFib with RVR and shortness of breath. Clinically was thought to be in heart failure. He was given IV diuretics and has felt significantly improved. Right now of is appears euvolemic. I think he can be changed to oral diuretics tomorrow. I think 40 mg of Lasix p.o. would be appropriate to start. Heart rate has improved with diuresis. Continue Toprol-XL and amiodarone at the same dose. He is COVID positive but has no signs of pneumonia. Thank you for allowing me to participate in the care of your patient. Please feel free to contact me if you have any questions. Procedures Date of Service Date of Service: 09/22/21
--- NOTE | 2021-09-22 12:19 | MHC.CM.PN ---
CM CONTACTED PT VIA T/C TO NUMBER LISTED [phone]. PT REPORTS HE LIVES AT HOME WITH HIS AND IS INDEPENDENT WITH CARE PT DENIES USING DME OR HAVING HOME SERVICES PT REPORTS HE WAS VACCINATED AGAINST COVID-19 WITH [facility], HE ALSO RECEIVED THE BOOSTER. PT CONFIRMS HIS PCP IS VONNIE MORRISON AND HE HAS A HCP ON FILE. PTS MEDICARE RIGHTS WERE DELIVERED, PT DECLINES TO HAVE THE ORIGINAL MAILED TO HIM AND REPORTS HE HAS HEARD THEM ENOUGH TIMES. COPY WAS SENT TO [facility]. CURRENT DC PLAN IS HOME WITH NO SERVICES. PTS DAUGHTER WILL TRANSPORT
--- NOTE | 2021-09-22 12:38 | P.EN_ITS ---
Event Note Date of Service: 09/22/21 Event Note: 86-year-old male past medical history of CHF as well as AFib prese nts the hospital found to be in AFib with RVR AFib with RVR most likely secondary to CHF exacerbation as well as infection with COVID-19 patient received Lopressor 5 mg IV with improvement his symptoms at this time will obtain an echocardiogram, monitor, and resume home medications of amiodarone and metoprolol resume warfarin Subtherapeutic INR 5mg warfarin today Follow INR CHF exacerbation has dyspnea, elevated BNP will treat with IV Lasix obtain echocardiogram and cardiology consult COVID-19 infection fully vaccinated with Pfizer not hypoxic monitor respiratory status history of coronary artery disease elevated?troponin with no chest pain and no EKG changes suggestive of ACS will continue home medications, trend troponin ?DVT prophylaxis:? Warfarin Attending Dr. Gould
[2021-09-22] MEDS: guaiFENesin DM 100/10/5 ML 5 ML SYRUP PO (13:26)
[2021-09-22] MEDS: Warfarin Sodium 5 MG TABLET PO (20:05)
[2021-09-23] VITALS (9 sets, daily range): BP systolic 152–180; BP diastolic 83–98; PULSE 78–101; RESP 14–22; TEMP 36.3–37.1; O2SAT 93–97
--- NOTE | 2021-09-23 02:33 | PC.NURSE ---
Patient alert and oriented x 3. ambulates independently. Patient is positive for covid but not on oxygen. Patient voiding in bathroom. Patient denies any pain, sob, or dizziness. Patient rings kelly appropriately. Will continue to monitor.
--- NOTE | 2021-09-23 06:33 | PC.NURSE ---
pt is sleeping, no sign of respiratory distress. Will continue to monitor.
[2021-09-23 07:34] LABS: Hematocrit 39.5 % (42.0-52.0); Hemoglobin 13.2 g/dl (14.0-18.0); Mean Corpuscular HGB Conc 33.4 g/dl (31.0-36.0); Mean Corpuscular Hemoglobin 32.1 pg (27.0-33.0); Mean Corpuscular Volume 96.1 fL (80.0-98.0); Mean Platelet Volume 10.3 fL (9.4-12.4); Platelet Count 113 X10*3/uL (160-400); Red Blood Count 4.11 X10*6/uL (4.60-5.80); Red Cell Distribution Width 14.6 % (11.0-16.0); White Blood Count 4.8 X10*3/uL (4.8-10.8)
[2021-09-23 07:55] LABS: Anion Gap 15 (12-20); Blood Urea Nitrogen 18 mg/dL (9-16); Carbon Dioxide 37 mmol/L (22-29); Chloride 93 mmol/L (96-108); Creatinine Clr Calc Pharmacy 52.3; Estimated Glomerular Filt Rate > 60; Glucose Random 102 mg/dL (60-115); Potassium 4.5 mmol/L (3.3-5.1); Sodium 139 mmol/L (135-145)
[2021-09-23 07:57] LABS: INTERNATIONAL NORM RATIO 1.3 (0.9-1.1); Prothrombin Time 15.1 SEC (9.9-13.0)
[2021-09-23] MEDS: amLODIPine Besylate 5 MG TABLET PO (08:50)
[2021-09-23] MEDS: Finasteride 5 MG TABLET PO (08:50)
[2021-09-23] MEDS: 0.9 % Sodium Chloride Flush 3 ML SYRINGE IVFLUSH ×3 (08:50→20:02)
[2021-09-23] MEDS: Furosemide 40 MG/4 ML VIAL IVPUSH ×2 (08:50→18:50)
[2021-09-23] MEDS: Amiodarone HCL 200 MG TABLET PO (08:50)
[2021-09-23] MEDS: Metoprolol Succinate ER 50 MG TAB.ER.24H PO (08:50)
[2021-09-23 09:03] LABS: B Type Natriuretic Peptide 1376 pg/mL (<100)
--- NOTE | 2021-09-23 11:21 | HO.PM.IMPN ---
Subjective Subjective Date of Service: 09/24/21 Review of Systems Follow up covid, CHF, hypoxia doing much better today no sob or chest pain all other systems are reviewed and are negative Physical Exam Vital Signs: Vital Signs: Last Vital Signs Temp 98.7 F 09/23/21 07:15 Pulse 95 09/23/21 08:00 Resp 18 09/23/21 08:00 BP 170/90 H 09/23/21 08:00 Pulse Ox 95 09/23/21 08:00 BMI result Body Mass Index 28.5 Appearing in no acute distress lung sounds are clear to auscultation heart regular rate rhythm, clear S1, S2 positive bowel sounds, abdomen is soft, nontender neuro patient is alert x3, no focal deficits Objective Data Active Medications Acetaminophen (Acetaminophen 325 Mg Tablet) 650 mg PO Q6H PRN PRN Reason: Pain, Mild (Pain Scale 1-3) Amiodarone HCl (Amiodarone Hcl 200 Mg Tablet) 200 mg PO DAILY [facility] Last Admin: 09/23/21 08:50 Dose: 200 mg Documented by: SABINA Amlodipine Besylate (Amlodipine Besylate 5 Mg Tablet) 5 mg PO DAILY [facility]; Protocol Last Admin: 09/23/21 08:50 Dose: 5 mg Documented by: SABINA Docusate Sodium (Docusate Sodium 100 Mg Capsule) 100 mg PO DAILY PRN PRN Reason: Constipation Finasteride (Finasteride 5 Mg Tablet) 5 mg PO DAILY [facility] Last Admin: 09/23/21 08:50 Dose: 5 mg Documented by: SABINA Furosemide (Furosemide 40 Mg/4 Ml Vial) 40 mg IVPUSH BID@0900,1800 [facility]; Protocol Last Admin: 09/23/21 08:50 Dose: 40 mg Documented by: SABINA Guaifenesin/Dextromethorphan (Guaifenesin Dm 100/10/5 Ml 5 Ml Syrup) 5 ml PO Q4H PRN PRN Reason: Cough Last Admin: 09/22/21 13:26 Dose: 5 ml Documented by: THOMAS Metoprolol Succinate (Metoprolol Succinate Er 50 Mg Tab.Er.24h) 50 mg PO DAILY [facility]; Protocol Last Admin: 09/23/21 08:50 Dose: 50 mg Documented by: SABINA Ondansetron HCl (Ondansetron Hcl 4 Mg/2 Ml Vial) 4 mg IVPUSH Q8H PRN PRN Reason: Nausea and Vomiting Pharmacy Consult (Consult Rx Perform Med Rec) 1 each MISCELLANE ONCE PRN PRN Reason: Consult order Sodium Chloride (0.9 % Sodium Chloride Flush 3 Ml Syringe) 3 ml IVFLUSH QSHIFT [facility] Last Admin: 09/23/21 08:50 Dose: 3 ml Documented by: SABINA Warfarin Sodium (Warfarin Sodium 5 Mg Tablet) 5 mg PO Q48H [facility] Last Admin: 09/22/21 20:05 Dose: 5 mg Documented by: LYLY Warfarin Sodium (Warfarin Sodium 5 Mg Tablet) 10 mg PO Q48H [facility] Labs CBC & Chem 7: 09/23/21 07:24 09/23/21 07:24 Labs: Laboratory Results - last 24 hr 09/23/21 09/23/21 09/23/21 07:24 07:24 07:24 MCV 96.1 MCH 32.1 MCHC 33.4 RDW 14.6 Plt Count 113 L MPV 10.3 Absolute Nucleated RBC 0.000 Nucleated RBC % (auto) 0.0 PT 15.1 H INR 1.3 H Anion Gap 15 Estim Creat Clear Calc 52.3 Estimated GFR > 60 Random Glucose 102 Calcium 9.0 B-Natriuretic Peptide 09/23/21 07:24 MCV MCH MCHC RDW Plt Count MPV Absolute Nucleated RBC Nucleated RBC % (auto) PT INR Anion Gap Estim Creat Clear Calc Estimated GFR Random Glucose Calcium B-Natriuretic Peptide 1376 H Assessment and Plan (1) CHF exacerbation: Status: Acute (2) Atrial fibrillation with rapid ventricular response: Status: Acute Assessment and Plan: 86-year-old male past medical history of CHF as well as AFib presents the hospital found to be in AFib with RVR AFib with RVR. resolved most likely secondary to CHF exacerbation as well as infection with COVID-19 patient received Lopressor 5 mg IV with improvement his symptoms at this time will obtain an echocardiogram, monitor, and resume home medications of amiodarone and metoprolol resume warfarin Subtherapeutic INR 10mg warfarin today Follow INR CHF exacerbation. resolved has dyspnea, elevated BNP IV Lasix, change to 40mg po daily tomorrow obtain echocardiogram and cardiology following COVID-19 infection fully vaccinated with Pfizer not hypoxic monitor respiratory status history of coronary artery disease elevated?troponin with no chest pain and no EKG changes suggestive of ACS will continue home medications, trend troponin DISPO DC in am if medically stable ?DVT prophylaxis:? Warfarin Attending Dr. Gould Quality Stroke Does the patient have a stroke diagnosis?: No VTE Prior VTE?: No VTE Risk Level:: Medical - moderate - high VTE Device Contraindication: Treatment Not Indicated VTE Drug Contraindication: N/A - Med Ordered
--- NOTE | 2021-09-23 11:29 | P.DS_ITS ---
DS: Providers Provider Date of Service: 09/24/21 Date of admission: 09/22/21 00:20 Primary care physician: Marcos Maurer MD Consults: 09/22/21 04:10 Consult to Cardiology Routine Consulting Provider: Joe Puente Reason for consultation: a fib w rvr, chf Has provider been notified: No Attending physician on discharge: Elias Gould Discharging clinician: Kirstin Klein DS: Diagnosis Discharge Diagnosis (1) CHF exacerbation: Status: Acute (2) Atrial fibrillation with rapid ventricular response: Status: Acute (3) COVID-19: Status: Acute DS: Summary Hospital Course Hospital Course: 86-year-old male with past medical history of heart failure, hypertension, paroxysmal AFib, who presents to the hospital with complaints of cough and congestion as well as shortness of breath that started last night.? Patient reports that the size these 3 symptoms he has no other symptoms and he kept repeating that.? He denies any orthopnea, no PND, no chest pain, no palpitations, no abdominal pain nausea or vomiting, no diarrhea constipation, no urinary symptoms and no lower extremity edema.? He denies any fever or chills.? Patient is vaccinated ? Against COVID with Pfizer vaccine. on arrival to the ED patient noted to have a temp of 97?, heart rate of 127 in AFib with RVR, respiratory rate of 24, satting 94% on room air, blood pressure of 209/105. Labs are significant for WBC count of 5.7, hemoglobin 12.5, PT of 18.4, in our of 1.6, high sensitive troponin of 71, BNP of 1000, COVID-19 positive. Patient given 5 mg of IV metoprolol with improvement his heart rate, Chest x-ray negative . AFib with RVR. Resolved most likely secondary to CHF exacerbation as well as infection with COVID-19 patient received Lopressor 5 mg IV with improvement his symptoms Continue amiodarone and metoprolol Subtherapeutic INR. Continue home dose 10 mg alternating with 5 mg. CHF exacerbation has dyspnea, elevated BNP Treated with IV Lasix, continue home Lasix 40 mg daily COVID-19 infection. Essentially asymptomatic fully vaccinated with Pfizer not hypoxic Time Spent with Patient Time attestation: Total time spent providing and/or coordinating discharge services: Discharge coordination time: Greater than 30 minutes Quality: Stroke Does the patient have a stroke diagnosis?: No Physical Exam Vital Signs: Vital Signs: Last Vital Signs Temp 98.7 F 09/23/21 07:15 Pulse 95 09/23/21 08:00 Resp 18 09/23/21 08:00 BP 170/90 H 09/23/21 08:00 Pulse Ox 95 09/23/21 08:00 BMI result Body Mass Index 28.5 Appearing in no acute distress head is normocephalic atraumatic eyes pupils are PERRLA sclera is anicteric mouth throat mucous membranes are intact and moist neck is supple no lymphadenopathy, no JVD noted lung sounds are clear to auscultation heart regular rate rhythm, clear S1, S2 positive bowel sounds, abdomen is soft, nontender neuro patient is alert x3, no focal deficits DS: Data Data Completed and Pending Labs on day of discharge: Laboratory Results - last 24 hr 09/23/21 09/23/21 09/23/21 07:24 07:24 07:24 WBC 4.8 RBC 4.11 L Hgb 13.2 L Hct 39.5 L MCV 96.1 MCH 32.1 MCHC 33.4 RDW 14.6 Plt Count 113 L MPV 10.3 Absolute Nucleated RBC 0.000 Nucleated RBC % (auto) 0.0 PT 15.1 H INR 1.3 H Sodium 139 Potassium 4.5 D Chloride 93 L Carbon Dioxide 37 H Anion Gap 15 BUN 18 H Creatinine 1.11 Estim Creat Clear Calc 52.3 Estimated GFR > 60 Random Glucose 102 Calcium 9.0 B-Natriuretic Peptide 09/23/21 07:24 WBC RBC Hgb Hct MCV MCH MCHC RDW Plt Count MPV Absolute Nucleated RBC Nucleated RBC % (auto) PT INR Sodium Potassium Chloride Carbon Dioxide Anion Gap BUN Creatinine Estim Creat Clear Calc Estimated GFR Random Glucose Calcium B-Natriuretic Peptide 1376 H Discharge Plan Discharge Anticipated Discharge Date/Time: 09/24/21 09:58 Patient Disposition: Home, Self-Care Discharge Diagnosis: CHF COVID Afib RVR Referrals: Marcos Maurer MD [Primary Care Provider] - 1 Week Discharge Medications: New furosemide 40 mg Tablet 40 mg PO DAILY Qty: 30 RF: 0 Continued metoprolol succinate 50 mg tablet extended release 24 hr 50 mg PO DAILY 90 Days Qty: 90 RF: 0 amiodarone 200 mg tablet 200 mg PO DAILY Qty: 90 RF: 0 warfarin [Jantoven] 5 mg tablet 10 mg PO Q48H RF: 0 amlodipine 5 mg tablet 5 mg PO DAILY RF: 0 warfarin 5 mg tablet 5 mg PO Q48H RF: 0 finasteride 5 mg tablet 5 mg PO DAILY RF: 0 Discharge Orders: Discharge Order (Routine); Ordered 09/24/21 Ordered By: Kirstin Klein Diet: advance to usual diet Activity on Discharge: As tolerated Stand Alone Forms: Patient Portal Discharge page Care Plan Goals: Complete resolution of symptoms Health Concerns: CHF COVID Afib RVR Plan of Treatment: You will be sent home with Lasix 40 mg daily Follow-up with primary care provider as needed Quarantine: According to the Centers for disease control. Persons with COVID-19 who have symptoms and were directed to care for themselves at home may discontinue isolation under the following conditions: -At least 5 days have passed since symptom onset and -At least 24 hours have passed since resolution of fever without the use of fever-reducing medications and -Other symptoms have improved. Safety: Wear a mask Wash your hands or use hand automobile relocation engineer before putting on your mask. Wear your mask over your nose and mouth and secure it under your chin. Stay 6 feet away from others Inside your home: Avoid close contact with people who are sick. If possible, maintain 6 feet between the person who is sick and other household members. Outside your home: Put 6 feet of distance between yourself and people who don't live in your household. Remember that some people without symptoms may be able to spread virus. Stay at least 6 feet (about 2 arm lengths) from other people. Keeping distance from others is especially important for people who are at higher risk of getting very sick. Avoid crowds and poorly ventilated spaces Avoid indoor spaces that do not offer fresh air from the outdoors as much as possible. Wash your hands often with soap and water for at least 20 seconds especially after you have been in a public place, or after blowing your nose, coughing, or sneezing. Cover coughs and sneezes Clean high touch surfaces daily. Be alert for symptoms. Watch for fever, cough, shortness of breath, or other symptoms of COVID-19. Follow CDC guidance if symptoms develop. Assessment: see discharge summary
[2021-09-23] MEDS: Warfarin Sodium 5 MG TABLET 10 MG PO (18:50)
[2021-09-24 04:00] VITALS: BP 132/82; PULSE 82; RESP 18; TEMP 38.2; O2SAT 90
[2021-09-24 05:55] VITALS: TEMP 37.2; BMI 30.1
[2021-09-24 08:00] VITALS: BP 124/93; PULSE 90; RESP 18; TEMP 37.4; O2SAT 92
[2021-09-24 08:31] LABS: INTERNATIONAL NORM RATIO 1.6 (0.9-1.1); Prothrombin Time 18.7 SEC (9.9-13.0)
[2021-09-24 09:38] VITALS: PULSE 84; O2SAT 91
--- NOTE | 2021-09-24 10:13 | MHC.CM.PN ---
Addendum entered by Karmen Eaton 09/24/21 10:17: No home services ordered or required. Original Note: IMM 09/22/21 Male 86 Covid+ Is discharged today to home. A home o2 eval has been completed by RT. He does not require home O2. He does not qualify. Family is providing transportation home.
[2021-09-24] MEDS: Finasteride 5 MG TABLET PO (10:14)
[2021-09-24] MEDS: amLODIPine Besylate 5 MG TABLET PO (10:14)
[2021-09-24] MEDS: Furosemide 40 MG TABLET PO (10:14)
[2021-09-24] MEDS: Metoprolol Succinate ER 50 MG TAB.ER.24H PO (10:14)
[2021-09-24] MEDS: Amiodarone HCL 200 MG TABLET PO (10:14)
--- NOTE | 2021-09-24 10:50 | PC.NURSE ---
pT a&OX3, without pain, waiting for echo prior to dc.
== END 2021-09-24 14:30 | disposition home or self-care (01) | DRG 177 ==
LOC: HO.ED 23:40 → HO.EDOVER 09-22 00:25 → HO.IMC 09-23 06:26
PROVIDERS: Admitting Provider Internal Medicine; Emergency Provider Emergency Medicine; PCP Internal Medicine; Visit Provider Nurse Practitioner Acute Care
DX: U07.1 COVID-19 (principal); I50.33 Acute on chronic diastolic (congestive) heart failure; I48.0 Paroxysmal atrial fibrillation; I25.10 Atherosclerotic heart disease of native coronary artery without angina pectoris; R79.1 Abnormal coagulation profile; Z87.891 Personal history of nicotine dependence; Z79.01 Long term (current) use of anticoagulants; Z79.899 Other long term (current) drug therapy; I11.0 Hypertensive heart disease with heart failure
CPT/HCPCS: 36415; 71045; 80048; 80053; 83735; 83880; 84484; 85025; 85027; 85610; 87635; 93005; 99219; 99285; J1940

== ENCOUNTER 2021-10-07 11:52 | Inpatient (IN) | payer OTHER, SELFPAY ==
[2021-10-07] VITALS (9 sets, daily range): BP systolic 112–197; BP diastolic 67–114; PULSE 80–110; RESP 14–24; TEMP 36.4–37; O2SAT 82–98; BMI 28.8
--- NOTE | ~2021-10-07 | CT_ITS ---
EXAMINATION: CT CHEST WITHOUT CONTRAST CLINICAL INFORMATION: Low O2. History of pneumonia. COMPARISON: None TECHNIQUE: Multidetector volumetric CT imaging of the chest was done. Axial MIP volume rendering provided. Sagittal and coronal reformatted images were obtained. This CT examination was performed using dose optimization techniques as appropriate, variously including the following: *Automated exposure control *Adjustment of mA and/or kV according to patient size (this includes techniques or standardized protocols for targeted exams where dose is matched to indication/reason for exam; i.e. extremities or head) *Use of iterative reconstruction technique DLP: 421 mGy-cm FINDINGS: SLIDE FASTENERS INSPECTOR: Mild cardiomegaly. LUNGS: Mild centrilobular emphysematous changes of both lungs without any acute consolidation. There is subtle groundglass attenuation both upper lobes on thin sections. There is mild bronchial wall thickening both upper and lower lobes. There is no bronchiectasis. No perinephric nodules. There is mild thickening of bilateral inferior major fissures and platelike atelectasis in the right middle lobe. 2 mm calcified nodule is seen right lower lobe image 380/5 likely a small granuloma.. MEDIASTINUM: The heart size is enlarged. There is trace coronary artery calcifications. No pericardial effusion seen. The great vessels are normal caliber. The central trachea and the bronchi are widely patent. The thyroid lobes are symmetric and normal. There are reactive mediastinal lymph nodes. The largest left para-aortic lymph node measures 1.2 cm and right pretracheal lymph node measures 1 cm on axial image 24/3. There is a benign-appearing lymph node measuring 1.9 cm. PLEURA: There is a small to moderate right pleural effusion. AXILLA: No lymphadenopathy. UPPER ABDOMEN: Visualized liver, spleen, pancreas and bilateral adrenal glands are unremarkable. There are large gallstones in a partially visualized gallbladder. There is minimal perihepatic and perisplenic fluid collection. OSSEOUS STRUCTURES: There is ventral spondylosis and calcification of anterior longitudinal ligament. No aggressive lytic or sclerotic process seen. CT/CT chest wo con IMPRESSION: Centrilobular emphysema of both lungs with the peribronchial wall thickening in upper lobes and lower lobe suggestive of small airway disease. No pneumonic consolidation. Minimal atelectatic changes right middle lobe. Small to moderate right pleural effusion. Cardiomegaly. Reactionary lymph nodes in the mediastinum. Gallstones. Small right perihepatic and perisplenic fluid collection. Fleischner guidelines were followed.
--- NOTE | ~2021-10-07 | XR_ITS ---
EXAMINATION: XR CHEST CLINICAL INFORMATION: SOB, dyspnea COMPARISON: Chest 09/21/2021 TECHNIQUE: Frontal view of the chest was obtained. FINDINGS: There is cardiomegaly with normal pulmonary vascularity. The lungs are expanded and clear. No gross bony abnormality seen. XR/XR chest 1V IMPRESSION: Cardiomegaly without congestion. No acute pulmonary process seen.
--- NOTE | 2021-10-07 12:01 | ECG_ITS ---
Test Reason : dyspnea Blood Pressure : / mmHG Vent. Rate : 084 BPM Atrial Rate : 047 BPM P-R Int : 000 ms QRS Dur : 164 ms QT Int : 440 ms P-R-T Axes : 000 092 -18 degrees QTc Int : 519 ms Atrial fibrillation Right bundle branch block Septal infarct (cited on or before 28-JAN-2018) Abnormal ECG When compared with ECG of 21-SEP-2021 23:02, No significant changes seen Referred By: Generic ED Physician Electronically Signed By:REGINA DAVALOS
[2021-10-07 12:26] LABS: COVID-19 Test Negative (Negative)
--- NOTE | 2021-10-07 12:47 | ED_ITS ---
HPI - SOB/Dyspnea General Chief Complaint: Dyspnea Stated Complaint: diff breathing Time Seen by Provider: 10/07/21 12:32 Source: patient Mode of arrival: ambulatory Limitations: no limitations History of Present Illness MD elicited complaint: shortness of breath and chest pain Pertinent past history: other (afib, pneumonia 1 month ago, s/p COVID vaccine and booster) Onset (ago): day(s) (yesterday in the afternoon at rest went away woke up with it again around 7 or 8 this AM, now resolved) Context: other (noted increased congestion and mucous) Timing: improved Severity: moderate Exacerbating factors: exertion Relieving factors: rest Known history of: other (pneumonia) Associated symptoms: chest pain and other (nasal congestion and mucous, LE swelling but mild for him, chest pain was tightness and upper left chest) Treatment prior to arrival: none Related Data Home Medications Medication Instructions Recorded Confirmed amlodipine 5 mg tablet 5 mg PO DAILY tab 08/27/20 09/22/21 finasteride 5 mg tablet 5 mg PO DAILY tab 08/27/20 09/22/21 warfarin 5 mg tablet 5 mg PO Q48H 08/27/20 09/22/21 warfarin 5 mg tablet (Jantoven) 10 mg PO Q48H 09/22/21 09/22/21 Previous Rx's Medication Instructions Recorded metoprolol succinate 50 mg 50 mg PO DAILY 90 Days #90 cap 08/11/21 tablet,extended release 24 hr amiodarone 200 mg tablet 200 mg PO DAILY #90 cap 09/02/21 Allergies Allergy/AdvReac Type Severity Reaction Status Date / Time No Known Allergies Allergy Mild NOT Verified 10/07/21 11:56 APPLICABLE Review of Systems Verdana 4l Review of Systems: Verdana 4d Verdana 4d Constitutional : No Fever, No Chills ENT/Mouth : No sore throat, pos Rhinorrhea, No Swallowing Difficulty Eyes: No Eye Pain, No Swelling, No Redness Cardiovascular : pos Chest Pain, positive SOB, No Orthopnea, positive Edema Respiratory : No Cough, No Sputum, No Wheezing, positive dyspnea Gastrointestinal : No Nausea, No Vomiting, No Diarrhea, No abdominal Pain, No Hematochezia, No Melena Genitourinary : No Dysuria, No Urinary Frequency, No Hematuria Musculoskeletal : No joint pain, No Myalgias Skin : No Skin Lesions, No rash Neuro : No Weakness, No Numbness, No Dizziness, No Headache Psych : No Anxiety/Panic, No Depression Heme/Lymph: No Bruising, No Lymphadenopathy Endocrine : No Polyuria, No Polydipsia All other systems reviewed and are negative FOR[facility]LY [facility] Past Medical History Attestation statement: The following information was validated with the patient. Medical History (HFpEF) heart failure with preserved ejection fraction BPH (benign prostatic hyperplasia) CHF (congestive heart failure) Herpes zoster, ocular HTN (hypertension) Osteoarthritis Paroxysmal atrial fibrillation Pleural effusion Pneumonitis Surgical History H/O cataract extraction History of cardioversion History of total right hip arthroplasty Status post colonoscopy with polypectomy Family History Family History Father No problems noted. Mother No problems noted. Social History Social History Household Members: Spouse Housing: House Do you presently have visiting nurse or other home services: No Alcohol intake: current Alcohol intake frequency: holidays/special occasions only Patient Tobacco Use Status: Former Tobacco user Tobacco use type: Cigarette Years Smoked: 18 years Advance Directives: Yes Advance Directives on File: Yes Advance Directives Date on File: 04/16/21 service: Yes (RESERVES) Current occupational status: retired Physical Exam Verdana 4l Vital Signs: Verdana 4d Verdana 4d Vital Signs: Verdana 4d Verdana 4Bd Last Vital Signs Verdana 4d Trophy Assembler New 4d Trophy Assembler New 4d Temp 97.7 F 10/07/21 15:15 Trophy Assembler New 4d Pulse 89 10/07/21 19:20 Trophy Assembler New 4d Resp 14 10/07/21 19:20 BP 185/91 H 10/07/21 19:20 Pulse Ox 98 10/07/21 19:20 BMI result Body Mass Index 28.8 Appearance: Alert. Oriented X3. No acute distress. Eyes: Pupils equal, round and reactive to light. ENT: Pharynx normal. Neck: Normal inspection. Neck supple. CVS: Normal heart rate and rhythm. Pulses normal. Respiratory: No respiratory distress. Breath sounds decreased at bases Abdomen: Soft and nontender. Skin: Skin warm and dry. Normal skin color. Normal skin turgor. Extremities: 1+ bilateral pitting LE edema No calf ttp Neuro: Oriented X 3. No motor deficit. No sensory deficit. Course Course Course Narrative: review of records show he was just admitted here and DC on 09/23/21 with COVID and pneumonia states he didn't know he had COVID - patient seems upset, RN and I did discuss that he did well with COVID and asked if he saw it on his discharge paperwork and he stated I did see it. But nobody told me. BNP elevated but mild peripheral edema, no overt edema on CXR, given IV lasix no further CP while here, no hypoxia unsure if he took his BP medications - given nitro paste as well - at this time states he feels fine, will recheck BP - ambulate and see if he has any return of symptoms if no symptoms will increase night dose of lasix 20mg at night for 3 days desaturates to 82% while walking - BNP elevated, will obtain CT chest to r/o pneumonia MDM - SOB/Dyspnea MDM Narrative Medical decision making narrative: 86 yo male with hx of afib on amiodarone and coumadin, hx of HTN, reports he had pneumonia with effusion 1 month ago that resolved yesterday was at rest and noted L sided chest pain that went away this AM woke up with similar pain noted increased mucous and congestion he felt short of breath particulary with exertion. Denies GIB symptoms. At this time denies CP and states he feels better but came in after walking with O2 sat of 88% at this time will obtain basic labs, CXR, EKG, COVID swab. Possible CHF vs pneumonia/effusion. Dispo per results and findings. Lab Data Result diagrams: 10/07/21 13:33 10/07/21 13:33 Labs: Lab Results 10/07/21 10/07/21 10/07/21 Range/Units 12:07 13:33 13:33 WBC 6.6 (4.8-10.8) X10*3/uL RBC 4.02 L (4.60-5.80) X10*6/uL Hgb 12.8 L (14.0-18.0) g/dl Hct 38.6 L (42.0-52.0) % MCV 96.0 (80.0-98.0) fL MCH 31.8 (27.0-33.0) pg MCHC 33.2 (31.0-36.0) g/dl RDW 14.6 (11.0-16.0) % Plt Count 169 D (160-400) X10*3/uL MPV 10.4 (9.4-12.4) fL Immature Gran % (Auto) 0.5 H (0.0-0.4) % Neut % (Auto) 79.8 H (45-73) % Lymph % (Auto) 8.0 L (20-40) % Maries % (Auto) 10.9 (2-11) % Eos % (Auto) 0.3 (0-4) % Baso % (Auto) 0.5 (0-2) % Lymph # (Auto) 0.5 L (1.2-4.9) X10*3/uL Maries # (Auto) 0.7 (0.1-1.2) X10*3/uL Eos # (Auto) 0.0 (0.0-0.4) X10*3/uL Baso # (Auto) 0.0 (0.0-0.2) X10*3/uL Abs Immat Gran (auto) 0.03 (0.00-0.03) X10*3/uL Absolute Neuts (auto) 5.3 (2.0-8.3) x10*3/uL Absolute Nucleated RBC 0.000 (0.0-0.012) X10*3/uL Nucleated RBC % (auto) 0.0 (0.0-0.2) /100WBC PT 44.8 H (9.9-13.0) SEC INR 3.8 H D (0.9-1.1) Sodium (135-145) mmol/L Potassium (3.3-5.1) mmol/L Chloride (96-108) mmol/L Carbon Dioxide (22-29) mmol/L Anion Gap (12-20) BUN (9-16) mg/dL Creatinine (0.5-1.4) mg/dL Estim Creat Clear Calc Estimated GFR Random Glucose (60-115) mg/dL Lactic Acid (0.5-2.0) mmol/L Calcium (8.4-10.2) mg/dL Magnesium (1.6-2.6) mg/dL Total Bilirubin (0.0-1.0) mg/dL Direct Bilirubin (0.0-0.5) mg/dL AST (5-37) U/L ALT (0-40) U/L Alkaline Phosphatase (39-117) U/L Troponin I High Sens (<3.5-35.0) ng/L B-Natriuretic Peptide (<100) pg/mL Total Protein (6.5-8.0) g/dL Albumin (3.5-5.0) g/dL COVID-19 (TAMI) Negative (Negative) COVID-19 Clin Com See Note 10/07/21 10/07/21 10/07/21 Range/Units 13:33 13:33 13:33 WBC (4.8-10.8) X10*3/uL RBC (4.60-5.80) X10*6/uL Hgb (14.0-18.0) g/dl Hct (42.0-52.0) % MCV (80.0-98.0) fL MCH (27.0-33.0) pg MCHC (31.0-36.0) g/dl RDW (11.0-16.0) % Plt Count (160-400) X10*3/uL MPV (9.4-12.4) fL Immature Gran % (Auto) (0.0-0.4) % Neut % (Auto) (45-73) % Lymph % (Auto) (20-40) % Maries % (Auto) (2-11) % Eos % (Auto) (0-4) % Baso % (Auto) (0-2) % Lymph # (Auto) (1.2-4.9) X10*3/uL Maries # (Auto) (0.1-1.2) X10*3/uL Eos # (Auto) (0.0-0.4) X10*3/uL Baso # (Auto) (0.0-0.2) X10*3/uL Abs Immat Gran (auto) (0.00-0.03) X10*3/uL Absolute Neuts (auto) (2.0-8.3) x10*3/uL Absolute Nucleated RBC (0.0-0.012) X10*3/uL Nucleated RBC % (auto) (0.0-0.2) /100WBC PT (9.9-13.0) SEC INR (0.9-1.1) Sodium 135 (135-145) mmol/L Potassium 4.2 (3.3-5.1) mmol/L Chloride 100 (96-108) mmol/L Carbon Dioxide 28 (22-29) mmol/L Anion Gap 11 L (12-20) BUN 27 H (9-16) mg/dL Creatinine 1.15 (0.5-1.4) mg/dL Estim Creat Clear Calc 50.7 Estimated GFR > 60 Random Glucose 100 (60-115) mg/dL Lactic Acid 0.9 (0.5-2.0) mmol/L Calcium 9.4 (8.4-10.2) mg/dL Magnesium 2.0 (1.6-2.6) mg/dL Total Bilirubin 0.5 (0.0-1.0) mg/dL Direct Bilirubin 0.3 (0.0-0.5) mg/dL AST 26 (5-37) U/L ALT 15 (0-40) U/L Alkaline Phosphatase 84 (39-117) U/L Troponin I High Sens 28.4 D (<3.5-35.0) ng/L B-Natriuretic Peptide 1441 H (<100) pg/mL Total Protein 7.0 (6.5-8.0) g/dL Albumin 4.1 (3.5-5.0) g/dL COVID-19 (TAMI) (Negative) COVID-19 Clin Com 10/07/21 Range/Units 15:57 WBC (4.8-10.8) X10*3/uL RBC (4.60-5.80) X10*6/uL Hgb (14.0-18.0) g/dl Hct (42.0-52.0) % MCV (80.0-98.0) fL MCH (27.0-33.0) pg MCHC (31.0-36.0) g/dl RDW (11.0-16.0) % Plt Count (160-400) X10*3/uL MPV (9.4-12.4) fL Immature Gran % (Auto) (0.0-0.4) % Neut % (Auto) (45-73) % Lymph % (Auto) (20-40) % Maries % (Auto) (2-11) % Eos % (Auto) (0-4) % Baso % (Auto) (0-2) % Lymph # (Auto) (1.2-4.9) X10*3/uL Maries # (Auto) (0.1-1.2) X10*3/uL Eos # (Auto) (0.0-0.4) X10*3/uL Baso # (Auto) (0.0-0.2) X10*3/uL Abs Immat Gran (auto) (0.00-0.03) X10*3/uL Absolute Neuts (auto) (2.0-8.3) x10*3/uL Absolute Nucleated RBC (0.0-0.012) X10*3/uL Nucleated RBC % (auto) (0.0-0.2) /100WBC PT (9.9-13.0) SEC INR (0.9-1.1) Sodium (135-145) mmol/L Potassium (3.3-5.1) mmol/L Chloride (96-108) mmol/L Carbon Dioxide (22-29) mmol/L Anion Gap (12-20) BUN (9-16) mg/dL Creatinine (0.5-1.4) mg/dL Estim Creat Clear Calc Estimated GFR Random Glucose (60-115) mg/dL Lactic Acid (0.5-2.0) mmol/L Calcium (8.4-10.2) mg/dL Magnesium (1.6-2.6) mg/dL Total Bilirubin (0.0-1.0) mg/dL Direct Bilirubin (0.0-0.5) mg/dL AST (5-37) U/L ALT (0-40) U/L Alkaline Phosphatase (39-117) U/L Troponin I High Sens 30.4 (<3.5-35.0) ng/L B-Natriuretic Peptide (<100) pg/mL Total Protein (6.5-8.0) g/dL Albumin (3.5-5.0) g/dL COVID-19 (TAMI) (Negative) COVID-19 Clin Com ECG Data Attestation: I personally reviewed and interpreted this ECG as follows: ECG interpretation date: 10/07/21 ECG interpretation time: 13:14 Interpretation: Rate: 84 Rhythm: afib Lucas: normal RBBB ST T wave : no ANAYA, nonspecific qTC: normal prior studies: no sig change from prior The study has been interpreted contemporaneously by me. . Discharge Plan Discharge Clinical Impression: Acute dyspnea, Hypoxia, Pleural effusion Congestive heart failure Qualifiers: Heart failure type: unspecified Heart failure chronicity: acute Qualified Code(s): I50.9 - Heart failure, unspecified Patient Disposition: Admitted As Inpatient
[2021-10-07 13:39] LABS: MANUAL DIFF FLAG NO
[2021-10-07 13:44] LABS: Basophils Percent Auto 0.5 % (0-2); Eosinophils Percent Auto 0.3 % (0-4); Hematocrit 38.6 % (42.0-52.0); Hemoglobin 12.8 g/dl (14.0-18.0); Imm Gran Abs Auto 0.03 X10*3/uL (0.00-0.03); Imm Gran Pct Auto 0.5 % (0.0-0.4); Lymphocytes Absolute Auto 0.5 X10*3/uL (1.2-4.9); Mean Corpuscular HGB Conc 33.2 g/dl (31.0-36.0); Mean Corpuscular Hemoglobin 31.8 pg (27.0-33.0); Mean Platelet Volume 10.4 fL (9.4-12.4); Monocytes Absolute Auto 0.7 X10*3/uL (0.1-1.2); Monocytes Percent Auto 10.9 % (2-11); Neutrophils Absolute Auto 5.3 x10*3/uL (2.0-8.3); Neutrophils Percent Auto 79.8 % (45-73); Platelet Count 169 X10*3/uL (160-400); Red Blood Count 4.02 X10*6/uL (4.60-5.80); Red Cell Distribution Width 14.6 % (11.0-16.0); White Blood Count 6.6 X10*3/uL (4.8-10.8)
[2021-10-07 13:52] LABS: INTERNATIONAL NORM RATIO 3.8 (0.9-1.1); Prothrombin Time 44.8 SEC (9.9-13.0)
[2021-10-07 13:55] LABS: Lactic Acid 0.9 mmol/L (0.5-2.0)
[2021-10-07 14:08] LABS: B Type Natriuretic Peptide 1441 pg/mL (<100); Troponin-I High Sensitivity 28.4 ng/L (<3.5-35.0)
[2021-10-07 14:13] LABS: Alanine Aminotransferase 15 U/L (0-40); Albumin Level 4.1 g/dL (3.5-5.0); Alkaline Phosphatase 84 U/L (39-117); Anion Gap 11 (12-20); Aspartate Amino Transferase 26 U/L (5-37); Bilirubin Direct 0.3 mg/dL (0.0-0.5); Bilirubin Total 0.5 mg/dL (0.0-1.0); Blood Urea Nitrogen 27 mg/dL (9-16); Calcium 9.4 mg/dL (8.4-10.2); Carbon Dioxide 28 mmol/L (22-29); Chloride 100 mmol/L (96-108); Creatinine Clr Calc Pharmacy 50.7; Estimated Glomerular Filt Rate > 60; Glucose Random 100 mg/dL (60-115); Potassium 4.2 mmol/L (3.3-5.1); Sodium 135 mmol/L (135-145)
[2021-10-07] MEDS: Furosemide 40 MG/4 ML VIAL IVPUSH (15:12)
[2021-10-07 16:23] LABS: Troponin-I High Sensitivity 30.4 ng/L (<3.5-35.0)
[2021-10-07] MEDS: Nitroglycerin 2 % Oint 1 GM Packet 1 INCH TRANSDERMA (16:41)
--- NOTE | 2021-10-07 16:59 | PC.NURSE ---
emptied 600 ml of urine x2. SG.
--- NOTE | 2021-10-07 18:25 | PC.NURSE ---
PT PLAN FOR ADMISSION, DUE TO CHF. PT WITH BILATERAL LEG EDEMA, AND DESTATURATIONS WITH AMB. IV IN PLACE AND LASIX GIVEN LABS DONE AND RESULTED
--- NOTE | 2021-10-07 20:03 | P.HPHOSP_ITS ---
History of Present Illness Date of Service: 10/07/21 Chief Complaint: SOB 86-year-old male with a past medical history of hypertension, CHF, AFib, BPH, arthritis presented to the hospital with a chief complaint of shortness of breath. patient reports that over the past couple days he has been having shortness of breath which has been gradually worsening; has dyspnea on exertion. Denies any chest pain or palpitations. Denies any fever chills cough. Reports he has been complaint with his home medications. Denies any GI symptoms. Review of all other systems is negative except mentioned above ER course: Per ER team patient on presentation noted to be desaturating to 88% of on ambulation; chest x-ray showed pleural effusion; CT chest showed ground-glass opacities, cardiomegaly, small to moderate right-sided effusion. Patient was reportedly positive for COVID-19 on 09/21/2016. Currently afebrile. No cough. Findings concerning for acute CHF. Given Lasix. Admitted for further management. EKG was nonischemic. [facility] Medical History (HFpEF) heart failure with preserved ejection fraction BPH (benign prostatic hyperplasia) CHF (congestive heart failure) Herpes zoster, ocular HTN (hypertension) Osteoarthritis Paroxysmal atrial fibrillation Pleural effusion Pneumonitis Family History Father No problems noted. Mother No problems noted. Pertinent family history: as above Surgical History H/O cataract extraction History of cardioversion History of total right hip arthroplasty Status post colonoscopy with polypectomy Social History Household Members: Spouse Housing: House Do you presently have visiting nurse or other home services: No Alcohol intake: current Alcohol intake frequency: holidays/special occasions only Patient Tobacco Use Status: Former Tobacco user Tobacco use type: Cigarette Years Smoked: 18 years Advance Directives: Yes Advance Directives on File: Yes Advance Directives Date on File: 04/16/21 service: Yes (RESERVES) Current occupational status: retired Meds Allergies Allergy/AdvReac Type Severity Reaction Status Date / Time No Known Allergies Allergy Mild NOT Verified 10/07/21 11:56 APPLICABLE Active Medications: Current Medications Acetaminophen (Acetaminophen 325 Mg Tablet) 650 mg PO Q6H PRN PRN Reason: Pain, Mild (Pain Scale 1-3) Furosemide (Furosemide 40 Mg/4 Ml Vial) 40 mg IVPUSH DAILY [facility]; Protocol Melatonin (Melatonin 3 Mg Tablet) 6 mg PO BEDTIME PRN PRN Reason: Insomnia Pharmacy Consult (Consult Rx Perform Med Rec) 1 each MISCELLANE ONCE PRN PRN Reason: Consult order Pharmacy Consult (Consult Rx Perform Med Rec) 1 each MISCELLANE ONCE STA Stop: 10/07/21 20:00 Senna (Sennosides 8.6 Mg Tablet) 17.2 mg PO BEDTIME PRN PRN Reason: Constipation Sodium Chloride (0.9 % Sodium Chloride Flush 3 Ml Syringe) 3 ml IVFLUSH QSHIFT [facility] Home Medications Medication Instructions Recorded Confirmed Last Taken Type amlodipine 5 mg 5 mg PO DAILY 08/27/20 10/07/21 10/07/21 History tablet tab finasteride 5 mg 5 mg PO DAILY 08/27/20 10/07/21 10/07/21 History tablet tab warfarin 5 mg 5 mg PO Q48H 08/27/20 10/07/21 10/07/21 History tablet warfarin 5 mg 10 mg PO Q48H 09/22/21 10/07/21 10/06/21 History tablet (Jantoven) Physical Exam Verdana 4l Vital Signs and Narrative: Verdana 4d Verdana 4d Vital Signs: Verdana 4d Verdana 4Bd Last Vital Signs Verdana 4d Cmm Technician New 4d Cmm Technician New 4d Temp 97.7 F 10/07/21 15:15 Cmm Technician New 4d Pulse 89 10/07/21 19:20 Cmm Technician New 4d Resp 14 10/07/21 19:20 BP 185/91 H 10/07/21 19:20 Pulse Ox 98 10/07/21 19:20 BMI result Body Mass Index 28.8 Gen: Appears be in no acute distress HEENT: NCAT, Moist mucosa. Pulmonary: Bilateral crackles present at bases, slightly diminished breath sounds on the right side CVS: Normal S1-S2 Abdomen: BS+, Soft, Nontender Extremities: Warm well perfused Neuro: Alert and awake. Results Labs CBC and Chem 7: 10/07/21 13:33 10/07/21 13:33 Labs: Laboratory Results - last 24 hr 10/07/21 10/07/21 10/07/21 12:07 13:33 13:33 MCV 96.0 MCH 31.8 MCHC 33.2 RDW 14.6 Plt Count 169 D MPV 10.4 Immature Gran % (Auto) 0.5 H Neut % (Auto) 79.8 H Lymph % (Auto) 8.0 L [place] % (Auto) 10.9 Eos % (Auto) 0.3 Baso % (Auto) 0.5 Lymph # (Auto) 0.5 L [place] # (Auto) 0.7 Eos # (Auto) 0.0 Baso # (Auto) 0.0 Abs Immat Gran (auto) 0.03 Absolute Neuts (auto) 5.3 Absolute Nucleated RBC 0.000 Nucleated RBC % (auto) 0.0 PT 44.8 H INR 3.8 H D Anion Gap Estim Creat Clear Calc Estimated GFR Random Glucose Lactic Acid Calcium Magnesium Total Bilirubin Direct Bilirubin AST ALT Alkaline Phosphatase Troponin I High Sens B-Natriuretic Peptide Total Protein Albumin COVID-19 (TAMI) Negative COVID-19 Clin Com See Note 10/07/21 10/07/21 10/07/21 13:33 13:33 13:33 MCV MCH MCHC RDW Plt Count MPV Immature Gran % (Auto) Neut % (Auto) Lymph % (Auto) [place] % (Auto) Eos % (Auto) Baso % (Auto) Lymph # (Auto) [place] # (Auto) Eos # (Auto) Baso # (Auto) Abs Immat Gran (auto) Absolute Neuts (auto) Absolute Nucleated RBC Nucleated RBC % (auto) PT INR Anion Gap 11 L Estim Creat Clear Calc 50.7 Estimated GFR > 60 Random Glucose 100 Lactic Acid 0.9 Calcium 9.4 Magnesium 2.0 Total Bilirubin 0.5 Direct Bilirubin 0.3 AST 26 ALT 15 Alkaline Phosphatase 84 Troponin I High Sens 28.4 D B-Natriuretic Peptide 1441 H Total Protein 7.0 Albumin 4.1 COVID-19 (TAMI) COVID-19 Clin Com 10/07/21 15:57 MCV MCH MCHC RDW Plt Count MPV Immature Gran % (Auto) Neut % (Auto) Lymph % (Auto) [place] % (Auto) Eos % (Auto) Baso % (Auto) Lymph # (Auto) [place] # (Auto) Eos # (Auto) Baso # (Auto) Abs Immat Gran (auto) Absolute Neuts (auto) Absolute Nucleated RBC Nucleated RBC % (auto) PT INR Anion Gap Estim Creat Clear Calc Estimated GFR Random Glucose Lactic Acid Calcium Magnesium Total Bilirubin Direct Bilirubin AST ALT Alkaline Phosphatase Troponin I High Sens 30.4 B-Natriuretic Peptide Total Protein Albumin COVID-19 (TAMI) COVID-19 Clin Com Imaging Radiologist's Impressions: Impressions Chest X-Ray 10/07/21 13:24 IMPRESSION: Cardiomegaly without congestion. No acute pulmonary process seen. Chest CT 10/07/21 18:13 IMPRESSION: Centrilobular emphysema of both lungs with the peribronchial wall thickening in upper lobes and lower lobe suggestive of small airway disease. No pneumonic consolidation. Minimal atelectatic changes right middle lobe. Small to moderate right pleural effusion. Cardiomegaly. Reactionary lymph nodes in the mediastinum. Gallstones. Small right perihepatic and perisplenic fluid collection. Fleischner guidelines were followed. Assessment and Plan (1) Congestive heart failure: Qualifiers: Heart failure chronicity: acute Heart failure type: unspecified Qualified Code(s): I50.9 - Heart failure, unspecified Status: Acute Plan 86-year-old male with a past medical history of hypertension, CHF, AFib, BPH, arthritis presented to the hospital with a chief complaint of shortness of breath. Noted to be in acute CHF exacerbation. Admitted for further management acute CHF exacerbation: Patient noted to have right-sided pleural effusion. Patient is saturating on ambulation to 88% on room air. Placed on supplemental oxygen. Continue Lasix 40 mg IV daily Cardiology follow-up Will defer to the day hospitalist to follow with IR in the morning for possible diagnostic/ therapeutic tap for the pleural effusion. Daily weights and I's and O's Telemetry Patient's echo from February 2021 showed mild LVH, grade 3 diastolic dysfunction; dilated left atrium/atrial myopathy Recent COVID infection: Patient was COVID-19 positive on 09/21/2021. Repeat rapid COVID test negative today. Patient was COVID-19 vaccinated in the past. Supportive care. history of AFib: Rate controlled. Continue home amiodarone, metoprolol. INR therapeutic. Continue Coumadin. Diet: Low-sodium diet DVT prophylaxis: Patient on Coumadin Code status: Full code Echo: February/2021 Conclusions: -? 1. Normal LV systolic function with mild LVH with grade 3 ? ? diastolic dysfunction? 2. Severely dilated left atrium with suggestion of atrial? myopathy ? 3. Mild aortic regurgitation ? 4. Moderately elevated right ventricular systolic pressure ? ? ? 5. No gross pericardial effusion ? ? Quality Stroke Does the patient have a stroke diagnosis?: No VTE Prior VTE?: No VTE Risk Level:: Medical - moderate - high VTE Device Contraindication: Treatment Not Indicated VTE Drug Contraindication: N/A - Med Ordered
--- NOTE | 2021-10-07 20:03 | PHA.MEDREC ---
Pharmacy Consult ? Medication Reconciliation Pharmacy has completed the medication reconciliation.
[2021-10-08 05:34] VITALS: PULSE 81
[2021-10-08 07:00] LABS: MANUAL DIFF FLAG NO
[2021-10-08 07:05] LABS: Basophils Percent Auto 0.4 % (0-2); Eosinophils Absolute Auto 0.1 X10*3/uL (0.0-0.4); Eosinophils Percent Auto 0.8 % (0-4); Hematocrit 41.8 % (42.0-52.0); Hemoglobin 13.7 g/dl (14.0-18.0); Imm Gran Abs Auto 0.03 X10*3/uL (0.00-0.03); Imm Gran Pct Auto 0.4 % (0.0-0.4); Lymphocytes Absolute Auto 0.9 X10*3/uL (1.2-4.9); Lymphocytes Percent Auto 10.7 % (20-40); Mean Corpuscular HGB Conc 32.8 g/dl (31.0-36.0); Mean Corpuscular Volume 94.6 fL (80.0-98.0); Mean Platelet Volume 10.1 fL (9.4-12.4); Monocytes Percent Auto 11.8 % (2-11); Neutrophils Absolute Auto 6.4 x10*3/uL (2.0-8.3); Neutrophils Percent Auto 75.9 % (45-73); Platelet Count 188 X10*3/uL (160-400); Red Blood Count 4.42 X10*6/uL (4.60-5.80); Red Cell Distribution Width 14.6 % (11.0-16.0); White Blood Count 8.5 X10*3/uL (4.8-10.8)
[2021-10-08 07:07] LABS: INTERNATIONAL NORM RATIO 2.4 (0.9-1.1); Prothrombin Time 28.1 SEC (9.9-13.0)
[2021-10-08 07:22] LABS: Anion Gap 12 (12-20); Blood Urea Nitrogen 20 mg/dL (9-16); Calcium 9.7 mg/dL (8.4-10.2); Carbon Dioxide 33 mmol/L (22-29); Chloride 98 mmol/L (96-108); Creatinine Clr Calc Pharmacy 53.5; Estimated Glomerular Filt Rate > 60; Glucose Random 89 mg/dL (60-115); Potassium 3.4 mmol/L (3.3-5.1); Sodium 140 mmol/L (135-145)
--- NOTE | 2021-10-08 08:00 | CA_ITS ---
Transthoracic Echocardiogram Patient (Last, First, Middle): Thierry Edwards K Gender: Male Date of : 1935 Age: 86 Procedure Date: 10/08/2021 Procedure Type: Transthoracic Echocardiogram Location: [facility] [place] Height: 175.26 cm Weight: 88.45 kg BSA: 2.04 m2 Heart Rate: bpm BP: 131 / 62 mmHg Shoe Dresser: Referring MD: Kirstin Klein NP Symptoms: acute chf Study Quality: Fair ECG Rhythm: Atrial Fibrillation Conclusions: - The left ventricular systolic function is low normal. The visually estimated ejection fraction is between 50-55%. - Moderate biatrial enlargement. - There is mild calcification of the aortic valve. Findings Left Ventricle Normal left ventricular cavity size. There is moderately increased left ventricular wall thickness. The left ventricular systolic function is low normal. The visually estimated ejection fraction is between 50-55%. There is no evidence of regional wall motion abnormalities. Diastolic function is indeterminate on the basis of available data. Right Ventricle Normal right ventricular cavity size and systolic function. Atria Moderate biatrial enlargement. Aortic Valve There is mild calcification of the aortic valve. There is no aortic valve stenosis. There is mild aortic valve regurgitation. Mitral Valve There is mild mitral annular calcification. There is trace mitral valve regurgitation. There is no mitral valve stenosis. Pulmonic Valve The pulmonic valve was not well visualized. Tricuspid Valve Normal tricuspid valve structure. There is trace tricuspid valve regurgitation. The pulmonary artery systolic pressure is normal. Great Vessels The aortic annulus, sinuses of valsalva, and asc aorta are normal in size. Venous The inferior vena cava is normal in size and collapses less than 50% with inspiration. Pericardium/Pleural There is no evidence of pericardial effusion. Prior Study Comparison Changes noted compared to prior study dated: 02/06/2021. Slight decrease in LVEF; RVSP seems lower- underestimation possible. Measurements 2D Linear Measurements IVSd: 1.50 0.6-0.9/0.6-1.0 cm LVIDd: 4.80 3.9-5.3/4.2-5.9 cm LVIDd Index: 2.35 2.4-3.2/2.2-3.1 cm/m2 LVIDs: 3.73 2.0-3.6 cm LVPWd: 1.49 0.7-1.1 cm Ao Root: 3.80 2.1-3.5 cm LA Diam: 4.30 2.7-3.8/3.0-4.0 cm LAIDs Index: 2.11 1.5-2.3 cm/m2 LV Mass: 376.62 67-162/88-224 g LV Mass Index: 184.62 43-95/49-115 g/m2 LVOT Diam: 2.50 3.0+(-)1.3 cm 2D Systolic Function EF 4C: 44.20 >55% EF 2C: 44.40 >55% EF BiP: 44.60 >55% Mitral Valve MV VTI: 0.25 MV Pk [place]: 1.16 MV Mn [place]: 0.62 MV Pk Grad: 5.00 MV Mn Grad: 2.00 MV Pk E: 1.21 MV Decel Time: 161.00 E'Lateral: 11.10 E'Medial: 5.87 E/E' Med: 20.60 E/E' Lat: 10.90 PHT: 47.00 MVA PHT: 4.68 MVA Continuity: 2.93 Decel [place]: 7.52 Aortic Valve AoV Pk [place]: 1.30 AoV Mn [place]: 0.86 AoV VTI: 0.27 AoV Pk Grad: 7.00 Aov Mn Grad: 3.00 BO Cont.VTI: 2.66 LVOT LVOT Pk [place]: 0.73 LVOT Mn [place]: 0.44 LVOT VTI: 0.15 LVOT Pk Grad: 2.00 LVOT Mn Grad: 1.00 LVOT Diam: 2.50 LVOT Area: 4.91 Diastolic Function MV Pk E: 1.21 E'Medial: 5.87 E/E' Med: 20.60 E' Laterial: 11.10 E/E' Lat: 10.90 Right Ventricle TAPSE (mm): 20.00 Tricuspid Valve TR Pk [place]: 1.97 TR Pk Grad: 16.00 Great Vessels Aorta Ao Root-2D: 3.80 2.0-3.7 cm Ao Asc: 3.70 2.1-3.4 cm Pulmonary Valve PV Pk [place]: 0.68 Peak PV Grad: 2.00 Updated in Other Vendor System with Status of Final Joe Puente MD electronically signed on 10/08/2021 3:26:19 PM with status of Final
[2021-10-08 08:16] VITALS: BP 131/62; PULSE 81; RESP 18; TEMP 36.4; O2SAT 97
--- NOTE | 2021-10-08 08:25 | PC.NURSE ---
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 A Fib noted and lungs with mild crackles. Pt abd soft and non-tender.
[2021-10-08] MEDS: amLODIPine Besylate 5 MG TABLET PO (08:59)
[2021-10-08] MEDS: Amiodarone HCL 200 MG TABLET PO (08:59)
[2021-10-08] MEDS: Finasteride 5 MG TABLET PO (09:00)
[2021-10-08] MEDS: Furosemide 40 MG/4 ML VIAL IVPUSH (09:00)
[2021-10-08] MEDS: Metoprolol Succinate ER 50 MG TAB.ER.24H PO (09:00)
--- NOTE | 2021-10-08 09:53 | P.PNIM_ITS ---
Subjective Subjective Date of Service: 10/08/21 <Kirstin Klein NP - Last Filed: 10/08/21 10:34> 10/08/21 <Elias Gould MD - Last Filed: 10/08/21 10:43> Review of Systems Follow up CHF, ? bronchitis Feeling better after getting phlegm up <Kirstin Klein NP - Last Filed: 10/08/21 10:34> Physical Exam Verdana 4l Vital Signs: Verdana 4d Verdana 4d Vital Signs: Verdana 4d Verdana 4Bd Last Vital Signs Verdana 4d Senior Oracle Applications Developer New 4d Senior Oracle Applications Developer New 4d Temp 97.5 F 10/08/21 08:16 Senior Oracle Applications Developer New 4d Pulse 81 10/08/21 08:16 Senior Oracle Applications Developer New 4d Resp 18 10/08/21 08:16 BP 131/62 10/08/21 08:16 Pulse Ox 97 10/08/21 08:16 BMI result Body Mass Index 28.8 <Kirstin Klein NP - Last Filed: 10/08/21 10:34> Appearing in no acute distress lungs normal expansion heart regular rate rhythm, clear S1, S2 positive bowel sounds, abdomen is soft, nontender neuro patient is alert x3, no focal deficits <Kirstin Klein NP - Last Filed: 10/08/21 10:34> Objective Data Active Medications Acetaminophen (Acetaminophen 325 Mg Tablet) 650 mg PO Q6H PRN PRN Reason: Pain, Mild (Pain Scale 1-3) Amiodarone HCl (Amiodarone Hcl 200 Mg Tablet) 200 mg PO DAILY [facility] Last Admin: 10/08/21 08:59 Dose: 200 mg Documented by: ALBA Amlodipine Besylate (Amlodipine Besylate 5 Mg Tablet) 5 mg PO DAILY [facility]; Protocol Last Admin: 10/08/21 08:59 Dose: 5 mg Documented by: ALBA Finasteride (Finasteride 5 Mg Tablet) 5 mg PO DAILY [facility] Last Admin: 10/08/21 09:00 Dose: 5 mg Documented by: ALBA Furosemide (Furosemide 40 Mg/4 Ml Vial) 40 mg IVPUSH DAILY [facility]; Protocol Last Admin: 10/08/21 09:00 Dose: 40 mg Documented by: ALBA Melatonin (Melatonin 3 Mg Tablet) 6 mg PO BEDTIME PRN PRN Reason: Insomnia Metoprolol Succinate (Metoprolol Succinate Er 50 Mg Tab.Er.24h) 50 mg PO DAILY [facility]; Protocol Last Admin: 10/08/21 09:00 Dose: 50 mg Documented by: ALBA Pharmacy Consult (Consult Rx Perform Med Rec) 1 each MISCELLANE ONCE PRN PRN Reason: Consult order Senna (Sennosides 8.6 Mg Tablet) 17.2 mg PO BEDTIME PRN PRN Reason: Constipation Sodium Chloride (0.9 % Sodium Chloride Flush 3 Ml Syringe) 3 ml IVFLUSH QSHIFT [facility] Last Admin: 10/08/21 08:11 Dose: Not Given Documented by: ALBA Non-Admin Reason: Med Not Available Warfarin Sodium (Warfarin Sodium 10 Mg Tablet) 10 mg PO Q2D@1800 LUPE Warfarin Sodium (Warfarin Sodium 5 Mg Tablet) 5 mg PO Q2D@1800 LUPE <Kirstin Klein NP - Last Filed: 10/08/21 10:34> Labs CBC & Chem 7: : 10/08/21 06:43 10/08/21 06:43 <Kirstin Klein NP - Last Filed: 10/08/21 10:34> Labs: Laboratory Results - last 24 hr 10/07/21 10/07/21 10/07/21 12:07 13:33 13:33 MCV 96.0 MCH 31.8 MCHC 33.2 RDW 14.6 Plt Count 169 D MPV 10.4 Immature Gran % (Auto) 0.5 H Neut % (Auto) 79.8 H Lymph % (Auto) 8.0 L [place] % (Auto) 10.9 Eos % (Auto) 0.3 Baso % (Auto) 0.5 Lymph # (Auto) 0.5 L [place] # (Auto) 0.7 Eos # (Auto) 0.0 Baso # (Auto) 0.0 Abs Immat Gran (auto) 0.03 Absolute Neuts (auto) 5.3 Absolute Nucleated RBC 0.000 Nucleated RBC % (auto) 0.0 PT 44.8 H INR 3.8 H D Anion Gap Estim Creat Clear Calc Estimated GFR Random Glucose Lactic Acid Calcium Magnesium Total Bilirubin Direct Bilirubin AST ALT Alkaline Phosphatase Troponin I High Sens B-Natriuretic Peptide Total Protein Albumin COVID-19 (TAMI) Negative COVID-19 Clin Com See Note 10/07/21 10/07/21 10/07/21 13:33 13:33 13:33 MCV MCH MCHC RDW Plt Count MPV Immature Gran % (Auto) Neut % (Auto) Lymph % (Auto) [place] % (Auto) Eos % (Auto) Baso % (Auto) Lymph # (Auto) [place] # (Auto) Eos # (Auto) Baso # (Auto) Abs Immat Gran (auto) Absolute Neuts (auto) Absolute Nucleated RBC Nucleated RBC % (auto) PT INR Anion Gap 11 L Estim Creat Clear Calc 50.7 Estimated GFR > 60 Random Glucose 100 Lactic Acid 0.9 Calcium 9.4 Magnesium 2.0 Total Bilirubin 0.5 Direct Bilirubin 0.3 AST 26 ALT 15 Alkaline Phosphatase 84 Troponin I High Sens 28.4 D B-Natriuretic Peptide 1441 H Total Protein 7.0 Albumin 4.1 COVID-19 (TAMI) COVID-19 [employer] 10/07/21 10/08/21 10/08/21 15:57 06:43 06:43 MCV 94.6 MCH 31.0 MCHC 32.8 RDW 14.6 Plt Count 188 MPV 10.1 Immature Gran % (Auto) 0.4 Neut % (Auto) 75.9 H Lymph % (Auto) 10.7 L [place] % (Auto) 11.8 H Eos % (Auto) 0.8 Baso % (Auto) 0.4 Lymph # (Auto) 0.9 L [place] # (Auto) 1.0 Eos # (Auto) 0.1 Baso # (Auto) 0.0 Abs Immat Gran (auto) 0.03 Absolute Neuts (auto) 6.4 Absolute Nucleated RBC 0.000 Nucleated RBC % (auto) 0.0 PT INR Anion Gap 12 Estim Creat Clear Calc 53.5 Estimated GFR > 60 Random Glucose 89 Lactic Acid Calcium 9.7 Magnesium Total Bilirubin Direct Bilirubin AST ALT Alkaline Phosphatase Troponin I High Sens 30.4 B-Natriuretic Peptide Total Protein Albumin COVID-19 (TAMI) COVID-19 Clin Com 10/08/21 06:43 MCV MCH MCHC RDW Plt Count MPV Immature Gran % (Auto) Neut % (Auto) Lymph % (Auto) [place] % (Auto) Eos % (Auto) Baso % (Auto) Lymph # (Auto) [place] # (Auto) Eos # (Auto) Baso # (Auto) Abs Immat Gran (auto) Absolute Neuts (auto) Absolute Nucleated RBC Nucleated RBC % (auto) PT 28.1 H INR 2.4 H Anion Gap Estim Creat Clear Calc Estimated GFR Random Glucose Lactic Acid Calcium Magnesium Total Bilirubin Direct Bilirubin AST ALT Alkaline Phosphatase Troponin I High Sens B-Natriuretic Peptide Total Protein Albumin COVID-19 (TAMI) COVID-19 Clin Com <Kirstin Klein NP - Last Filed: 10/08/21 10:34> Assessment and Plan (1) Persistent atrial fibrillation: Status: Acute <Kirstin Klein NP - Last Filed: 10/08/21 10:34> (2) Acute on chronic diastolic (congestive) heart failure: Status: Acute <Kirstin Klein NP - Last Filed: 10/08/21 10:34> Plan 86-year-old male with a past medical history of hypertension, CHF, AFib, BPH, arthritis presented to the hospital with a chief complaint of shortness of breath.? Noted to be in acute CHF exacerbation.? Admitted for further management Acute CHF exacerbation Continue Lasix 40 mg IV daily Cardiology following rec stopping amiodarone and continue IV diuretics Will defer to the day hospitalist to follow with IR in the morning for possible diagnostic/ therapeutic tap for the pleural effusion. Daily weights and I's and O's Telemetry Patient's echo from February 2021 showed mild LVH, grade 3 diastolic dysfunction; d ilated left atrium/atrial myopathy, new echo pending follow BNP Recent COVID infection Patient was COVID-19 positive on 09/21/2021.? vaccinated in the past.? History of AFib Rate controlled.? Stop amiodarone, in afib depite this continue BB DVT prophylaxis: Patient on Coumadin Code status: Full code Attending Dr. Gould <Kirstin Klein NP - Last Filed: 10/08/21 10:34> Quality Stroke Does the patient have a stroke diagnosis?: No <Kirstin Klein NP - Last Filed: 10/08/21 10:34> VTE Prior VTE?: No <Kirstin Klein NP - Last Filed: 10/08/21 10:34> VTE Risk Level:: Medical - moderate - high <Kirstin Kelin NP - Last Filed: 10/08/21 10:34> VTE Device Contraindication: Treatment Not Indicated <Kirstin Klein NP - Last Filed: 10/08/21 10:34> VTE Drug Contraindication: N/A - Med Ordered <Kirstin Klein NP - Last Filed: 10/08/21 10:34>
--- NOTE | 2021-10-08 09:56 | P.CONCA_ITS ---
History of Present Illness History of Present Illness Date of Service: 10/08/21 Chief complaint: CHF Narrative: This is a cardiology consultation regarding congestive heart failure. Patient normally sees Dr. Camarillo. Has a history of diastolic congestive heart failure and paroxysmal atrial fibrillation. It seems that few days ago, he had COVID infection. Discharge a few days ago. Now he returns back to the hospital saying that he had difficulty breathing and also felt as though his chest was very congested. Then it seems as though he was trying to cough and expectoration after that feels much relieved. Today, he states that his breathing is actually much improved than yesterday. No anginal-type symptoms. No palpitations. He has paroxysmal atrial fibrillation but recent EKGs actually shown atrial fibrillation. Last year, was in sinus by EKG. On amiodarone. Also on anticoagulation. Review of Systems Verdana 4l Review of Systems: Verdana 4d Yes all other systems are reviewed and are negative Verdana 4l Cardiovascular: Verdana 4d Verdana 4d Cardiovascular: Verdana 4d Reports as per HPI, Reports no additional cardiovascular complaints, Denies acrocyanosis, Denies cool extremities, Denies painful fingertips, Denies chest pain, Denies chest pain at rest, Denies diaphoresis, DeniesDenies syncope, Denies irregular heart rhythm, Denies claudication, Denies leg edema, Denies lightheadedness, Denies pa lpitations and Reports dyspnea Respiratory: Respiratory: Reports dyspnea Neurologic: Denies syncope Endocrine: Endocrine: Denies palpitations PMFSH Past Medical History Medical History (HFpEF) heart failure with preserved ejection fraction BPH (benign prostatic hyperplasia) CHF (congestive heart failure) Herpes zoster, ocular HTN (hypertension) Osteoarthritis Paroxysmal atrial fibrillation Pleural effusion Pneumonitis Family History Family History Father No problems noted. Mother No problems noted. Surgical History Surgical History H/O cataract extraction History of cardioversion History of total right hip arthroplasty Status post colonoscopy with polypectomy Social History Social History Household Members: Spouse Housing: House Do you presently have visiting nurse or other home services: No Alcohol intake: current Alcohol intake frequency: holidays/special occasions only Patient Tobacco Use Status: Former Tobacco user Tobacco use type: Cigarette Years Smoked: 18 years Advance Directives: Yes Advance Directives on File: Yes Advance Directives Date on File: 04/16/21 service: Yes (RESERVES) Current occupational status: retired Meds Allergies Allergy/AdvReac Type Severity Reaction Status Date / Time No Known Allergies Allergy Mild NOT Verified 10/07/21 11:56 APPLICABLE Active Medications: Current Medications Acetaminophen (Acetaminophen 325 Mg Tablet) 650 mg PO Q6H PRN PRN Reason: Pain, Mild (Pain Scale 1-3) Amiodarone HCl (Amiodarone Hcl 200 Mg Tablet) 200 mg PO DAILY [facility] Last Admin: 10/08/21 08:59 Dose: 200 mg Documented by: Amlodipine Besylate (Amlodipine Besylate 5 Mg Tablet) 5 mg PO DAILY [facility]; Protocol Last Admin: 10/08/21 08:59 Dose: 5 mg Documented by: Finasteride (Finasteride 5 Mg Tablet) 5 mg PO DAILY [facility] Last Admin: 10/08/21 09:00 Dose: 5 mg Documented by: Furosemide (Furosemide 40 Mg/4 Ml Vial) 40 mg IVPUSH DAILY [facility]; Protocol Last Admin: 10/08/21 09:00 Dose: 40 mg Documented by: Melatonin (Melatonin 3 Mg Tablet) 6 mg PO BEDTIME PRN PRN Reason: Insomnia Metoprolol Succinate (Metoprolol Succinate Er 50 Mg Tab.Er.24h) 50 mg PO DAILY [facility]; Protocol Last Admin: 10/08/21 09:00 Dose: 50 mg Documented by: Pharmacy Consult (Consult Rx Perform Med Rec) 1 each MISCELLANE ONCE PRN PRN Reason: Consult order Senna (Sennosides 8.6 Mg Tablet) 17.2 mg PO BEDTIME PRN PRN Reason: Constipation Sodium Chloride (0.9 % Sodium Chloride Flush 3 Ml Syringe) 3 ml IVFLUSH QSHIFT [facility] Last Admin: 10/08/21 08:11 Dose: Not Given Documented by: Warfarin Sodium (Warfarin Sodium 10 Mg Tablet) 10 mg PO Q2D@1800 [facility] Warfarin Sodium (Warfarin Sodium 5 Mg Tablet) 5 mg PO Q2D@1800 [facility] Home Medications Medication Instructions Recorded Confirmed Last Taken Type amlodipine 5 mg 5 mg PO DAILY 08/27/20 10/07/21 10/07/21 History tablet tab finasteride 5 mg 5 mg PO DAILY 08/27/20 10/07/21 10/07/21 History tablet tab warfarin 5 mg 5 mg PO Q48H 08/27/20 10/07/21 10/07/21 History tablet warfarin 5 mg 10 mg PO Q48H 09/22/21 10/07/21 10/06/21 History tablet (Jantoven) Physical Exam Verdana 4l Vital Signs: Verdana 4d Verdana 4d Vital Signs: Verdana 4d Verdana 4Bd Last Vital Signs Verdana 4d Patient Access New 4d Patient Access New 4d Temp 97.5 F 10/08/21 08:16 Patient Access New 4d Pulse 81 10/08/21 08:16 Patient Access New 4d Resp 18 10/08/21 08:16 BP 131/62 10/08/21 08:16 Pulse Ox 97 10/08/21 08:16 BMI result Body Mass Index 28.8 Const: General: no acute distress HENMT: Other: Unremarkable Neck: Neck: Yes normal visual inspection Chest: Chest palpation & inspection: normal inspection of the chest Resp: Auscultation: no crackles and no wheezes Cardio: Palpation: normal PMI Heart sounds: S1 normal heart sound present, S2 normal heart sound present, no gallops, no murmurs and no rubs GI: Palpation (GI): Soft to palpation Back/Spine/Pelvis: Other: unremarkable Skin: Lesions: other Neuro: Cranial nerves: Yes Other cranial nerve findings present Extrem: General: Yes other Psych: Mental Status: other Objective Labs and Meds Result diagrams: 10/08/21 06:43 10/08/21 06:43 Lab results: Laboratory Results - last 24 hr 10/07/21 10/07/21 10/07/21 12:07 13:33 13:33 WBC 6.6 RBC 4.02 L Hgb 12.8 L Hct 38.6 L MCV 96.0 MCH 31.8 MCHC 33.2 RDW 14.6 Plt Count 169 D MPV 10.4 Immature Gran % (Auto) 0.5 H Neut % (Auto) 79.8 H Lymph % (Auto) 8.0 L [place] % (Auto) 10.9 Eos % (Auto) 0.3 Baso % (Auto) 0.5 Lymph # (Auto) 0.5 L [place] # (Auto) 0.7 Eos # (Auto) 0.0 Baso # (Auto) 0.0 Abs Immat Gran (auto) 0.03 Absolute Neuts (auto) 5.3 Absolute Nucleated RBC 0.000 Nucleated RBC % (auto) 0.0 PT 44.8 H INR 3.8 H D Sodium Potassium Chloride Carbon Dioxide Anion Gap BUN Creatinine Estim Creat Clear Calc Estimated GFR Random Glucose Lactic Acid Calcium Magnesium Total Bilirubin Direct Bilirubin AST ALT Alkaline Phosphatase Troponin I High Sens B-Natriuretic Peptide Total Protein Albumin COVID-19 (TAMI) Negative COVID-19 Clin Com See Note 10/07/21 10/07/21 10/07/21 13:33 13:33 13:33 WBC RBC Hgb Hct MCV MCH MCHC RDW Plt Count MPV Immature Gran % (Auto) Neut % (Auto) Lymph % (Auto) [place] % (Auto) Eos % (Auto) Baso % (Auto) Lymph # (Auto) [place] # (Auto) Eos # (Auto) Baso # (Auto) Abs Immat Gran (auto) Absolute Neuts (auto) Absolute Nucleated RBC Nucleated RBC % (auto) PT INR Sodium 135 Potassium 4.2 Chloride 100 Carbon Dioxide 28 Anion Gap 11 L BUN 27 H Creatinine 1.15 Estim Creat Clear Calc 50.7 Estimated GFR > 60 Random Glucose 100 Lactic Acid 0.9 Calcium 9.4 Magnesium 2.0 Total Bilirubin 0.5 Direct Bilirubin 0.3 AST 26 ALT 15 Alkaline Phosphatase 84 Troponin I High Sens 28.4 D B-Natriuretic Peptide 1441 H Total Protein 7.0 Albumin 4.1 COVID-19 (TAMI) COVID-19 Clin Com 10/07/21 10/08/21 10/08/21 15:57 06:43 06:43 WBC 8.5 RBC 4.42 L Hgb 13.7 L Hct 41.8 L MCV 94.6 MCH 31.0 MCHC 32.8 RDW 14.6 Plt Count 188 MPV 10.1 Immature Gran % (Auto) 0.4 Neut % (Auto) 75.9 H Lymph % (Auto) 10.7 L [place] % (Auto) 11.8 H Eos % (Auto) 0.8 Baso % (Auto) 0.4 Lymph # (Auto) 0.9 L [place] # (Auto) 1.0 Eos # (Auto) 0.1 Baso # (Auto) 0.0 Abs Immat Gran (auto) 0.03 Absolute Neuts (auto) 6.4 Absolute Nucleated RBC 0.000 Nucleated RBC % (auto) 0.0 PT INR Sodium 140 Potassium 3.4 Chloride 98 Carbon Dioxide 33 H Anion Gap 12 BUN 20 H Creatinine 1.09 Estim Creat Clear Calc 53.5 Estimated GFR > 60 Random Glucose 89 Lactic Acid Calcium 9.7 Magnesium Total Bilirubin Direct Bilirubin AST ALT Alkaline Phosphatase Troponin I High Sens 30.4 B-Natriuretic Peptide Total Protein Albumin COVID-19 ([facility]I) COVID-19 [employer] Com 10/08/21 06:43 WBC RBC Hgb Hct MCV MCH MCHC RDW Plt Count MPV Immature Gran % (Auto) Neut % (Auto) Lymph % (Auto) [place] % (Auto) Eos % (Auto) Baso % (Auto) Lymph # (Auto) [place] # (Auto) Eos # (Auto) Baso # (Auto) Abs Immat Gran (auto) Absolute Neuts (auto) Absolute Nucleated RBC Nucleated RBC % (auto) PT 28.1 H INR 2.4 H Sodium Potassium Chloride Carbon Dioxide Anion Gap BUN Creatinine Estim Creat Clear Calc Estimated GFR Random Glucose Lactic Acid Calcium Magnesium Total Bilirubin Direct Bilirubin AST ALT Alkaline Phosphatase Troponin I High Sens B-Natriuretic Peptide Total Protein Albumin COVID-19 ([facility]AMI) COVID-19 Clin Com ECG Interpretation: Admission EKG shows atrial fibrillation with right bundle-branch block. Imaging Radiologist's impression: Impressions Chest X-Ray 10/07/21 13:24 IMPRESSION: Cardiomegaly without congestion. No acute pulmonary process seen. Chest CT 10/07/21 18:13 IMPRESSION: Centrilobular emphysema of both lungs with the peribronchial wall thickening in upper lobes and lower lobe suggestive of small airway disease. No pneumonic consolidation. Minimal atelectatic changes right middle lobe. Small to moderate right pleural effusion. Cardiomegaly. Reactionary lymph nodes in the mediastinum. Gallstones. Small right perihepatic and perisplenic fluid collection. Fleischner guidelines were followed. Assessment and Plan (1) Acute on chronic diastolic (congestive) heart failure: Status: Acute (2) Persistent atrial fibrillation: Status: Acute Plan Recent EKGs have shown atrial fibrillation. Today, he is in atrial fibrillation but with controlled rate. EKG from last April had shown sinus rhythm. Hence it seems that he went into atrial fibrillation in spite of amiodarone. Can stop this and continue beta-blockers only. If necessary, can add digoxin. Otherwise, possibly some diastolic heart failure related to recent COVID infection. Can use IV diuretics for symptom relief. Otherwise continue anticoagulation. Will follow-up. Procedures Date of Service Date of Service: 10/08/21
[2021-10-08 11:45] VITALS: BP 169/98; PULSE 89; RESP 18; TEMP 36.9; O2SAT 97
[2021-10-08] MEDS: Warfarin Sodium 10 MG TABLET PO (18:02)
[2021-10-08 20:00] VITALS: BP 180/93; PULSE 83; RESP 18; TEMP 36.9; O2SAT 96
[2021-10-09] VITALS: BP 202/92; PULSE 87; RESP 18; TEMP 36.3; O2SAT 95
[2021-10-09 00:15] VITALS: BP 160/80
[2021-10-09 03:51] VITALS: BP 140/77; PULSE 95; RESP 18; TEMP 36.4; O2SAT 96
[2021-10-09 06:20] LABS: B Type Natriuretic Peptide 925 pg/mL (<100)
[2021-10-09 06:21] LABS: Anion Gap 11 (12-20); Blood Urea Nitrogen 28 mg/dL (9-16); Calcium 9.2 mg/dL (8.4-10.2); Carbon Dioxide 35 mmol/L (22-29); Chloride 97 mmol/L (96-108); Estimated Glomerular Filt Rate 55; Glucose Random 100 mg/dL (60-115); Potassium 3.3 mmol/L (3.3-5.1); Sodium 140 mmol/L (135-145)
[2021-10-09 07:37] VITALS: BP 165/87; PULSE 92; RESP 17; TEMP 37.1; O2SAT 94
[2021-10-09] MEDS: Furosemide 40 MG/4 ML VIAL IVPUSH (07:52)
[2021-10-09] MEDS: 0.9 % Sodium Chloride Flush 3 ML SYRINGE IVFLUSH (07:54)
[2021-10-09] MEDS: amLODIPine Besylate 5 MG TABLET PO ×2 (07:55→11:24)
[2021-10-09] MEDS: Metoprolol Succinate ER 50 MG TAB.ER.24H PO (07:55)
[2021-10-09] MEDS: Finasteride 5 MG TABLET PO (07:56)
[2021-10-09 10:27] LABS: INTERNATIONAL NORM RATIO 2.4 (0.9-1.1); Prothrombin Time 27.4 SEC (9.9-13.0)
--- NOTE | 2021-10-09 10:37 | P.PNCA_ITS ---
Subjective Subjective Date of Service: 10/09/21 Interval history: Feels better. Not short of breath. Review of Systems Review of Systems Yes all other systems are reviewed and are negative Cardiovascular: Reports as per HPI, Reports no additional cardiovascular complaints, Denies acrocyanosis, Denies cool extremities, Denies painful fingertips, Denies chest pain, Denies chest pain at rest, Denies diaphoresis, Denies syncope, Denies irregular heart rhythm, Denies claudication, Denies leg edema, Denies lightheadedness, Denies palpitations and Reports dyspnea Respiratory: Reports dyspnea Denies syncope Endocrine: Denies palpitations Physical Exam Vital Signs: Last Vital Signs Temp 98.7 F 10/09/21 07:37 Pulse 92 10/09/21 07:37 Resp 17 10/09/21 07:37 BP 165/87 H 10/09/21 07:37 Pulse Ox 94 10/09/21 07:37 BMI result Verdana 4 Body Mass Index Verdana 4 28.8 Verdana 4 Verdana 4 Const General: no acute distress HENGA Other: Unremarkable Neck Neck: Yes normal visual inspection Chest Chest palpation & inspection: normal inspection of the chest Resp Auscultation: no crackles and no wheezes Cardio Palpation: normal PMI Heart sounds: S1 normal heart sound present, S2 normal heart sound present, no gallops, no murmurs and no rubs GI Palpation (GI): Soft to palpation Back/Spine/Pelvis Other: unremarkable Skin Lesions: other Neuro Cranial nerves: Yes Other cranial nerve findings present Extrem General: Yes other Psych Mental Status: other Objective Labs and Meds Result diagrams: 10/08/21 06:43 10/09/21 05:43 Lab results: Laboratory Results - last 24 hr 10/09/21 10/09/21 10/09/21 05:43 05:43 09:38 PT 27.4 H INR 2.4 H Sodium 140 Potassium 3.3 Chloride 97 Carbon Dioxide 35 H Anion Gap 11 L BUN 28 H Creatinine 1.24 Estim Creat Clear Calc 47.0 Estimated GFR 55 Random Glucose 100 Calcium 9.2 B-Natriuretic Peptide 925 H Progress Note: A&P Assessment and plan (1) Acute on chronic diastolic (congestive) heart failure: Status: Acute (2) Persistent atrial fibrillation: Status: Acute (3) Hypertensive emergency: Status: Acute Plan Recent EKGs have shown atrial fibrillation. Today, he is in atrial fibrillation but with controlled rate. EKG from last April had shown sinus rhythm. Hence it seems that he went into atrial fibrillation in spite of amiodarone. Can stop this and continue beta-blockers only. Continue anticoagulation. Otherwise, possibly some diastolic heart failure related to recent COVID infection. Clinically, euvolemic. Can stop IV diuretics and use as needed orally. With regard to blood pressure, seems quite high. Went up as much as 202/92mmHg. Increase amlodipine to 10 mg daily. Fall Risk Details Current Medications: Current Medications Acetaminophen (Acetaminophen 325 Mg Tablet) 650 mg PO Q6H PRN PRN Reason: Pain, Mild (Pain Scale 1-3) Amlodipine Besylate (Amlodipine Besylate 5 Mg Tablet) 5 mg PO DAILY [facility]; Protocol Last Admin: 10/09/21 07:55 Dose: 5 mg Documented by: Finasteride (Finasteride 5 Mg Tablet) 5 mg PO DAILY [facility] Last Admin: 10/09/21 07:56 Dose: 5 mg Documented by: Furosemide (Furosemide 40 Mg/4 Ml Vial) 40 mg IVPUSH DAILY [facility]; Protocol Last Admin: 10/09/21 07:52 Dose: 40 mg Documented by: Melatonin (Melatonin 3 Mg Tablet) 6 mg PO BEDTIME PRN PRN Reason: Insomnia Metoprolol Succinate (Metoprolol Succinate Er 50 Mg Tab.Er.24h) 50 mg PO DAILY [facility]; Protocol Last Admin: 10/09/21 07:55 Dose: 50 mg Documented by: Pharmacy Consult (Consult Rx Perform Med Rec) 1 each MISCELLANE ONCE PRN PRN Reason: Consult order Senna (Sennosides 8.6 Mg Tablet) 17.2 mg PO BEDTIME PRN PRN Reason: Constipation Sodium Chloride (0.9 % Sodium Chloride Flush 3 Ml Syringe) 3 ml IVFLUSH QSHIFT [facility] Last Admin: 10/09/21 07:54 Dose: 3 ml Documented by: Warfarin Sodium (Warfarin Sodium 10 Mg Tablet) 10 mg PO Q2D@1800 [facility] Last Admin: 10/08/21 18:02 Dose: 10 mg Documented by: Warfarin Sodium (Warfarin Sodium 5 Mg Tablet) 5 mg PO Q2D@1800 [facility] Time Spent With Patient Time: Total time spent is greater than 50% in coordination of care (as documented) at patient's floor/unit and/or counseling patient: Time with patient: less than 15 minutes Progress Note: Quality Stroke Does the patient have a stroke diagnosis?: No Procedures Date of Service Date of Service: 10/09/21
--- NOTE | 2021-10-09 10:52 | P.DS_ITS ---
DS: Providers Provider Date of Service: 10/09/21 Date of admission: 10/07/21 19:59 Primary care physician: Marcos Maurer MD Consults: 10/07/21 19:59 Consult to Cardiology Routine Consulting Provider: Joe Puente Reason for consultation: CHF DS: Diagnosis Discharge Diagnosis (1) Acute on chronic diastolic (congestive) heart failure: Status: Acute (2) Persistent atrial fibrillation: Status: Acute (3) Hypertensive emergency: Status: Acute (4) Pleural effusion: Status: Acute DS: Summary Hospital Course Hospital Course: HPI from the admission H&P: ?86-year-old male with a past medical history of hypertension, CHF, AFib, BPH, arthritis presented to the hospital with a chief complaint of shortness of breath. patient reports that over the past couple days he has been having shortness of breath which has been gradually worsening; has dyspnea on exertion. ? Denies any chest pain or palpitations.? Denies any fever chills cough.? Reports he has been complaint with his home medications.? Denies any GI symptoms.? Review of all other systems is negative except mentioned above ER course: Per ER team patient on presentation noted to be desaturating to 88% of on ambulation; chest x-ray showed pleural effusion; CT chest showed ground-glass opacities, cardiomegaly, small to moderate right-sided effusion.? Patient was reportedly positive for COVID-19 on 09/21/2016.? Currently afebrile.? No cough.? Findings concerning for acute CHF.? Given Lasix.? Admitted for further management.? EKG was non-ischemic. Hospital Course: Patient was started on IV Lasix for acute CHF exacerbation. He underwent 2d echo which showed preserved LVEF, likely diagnostic CHF from hypertensive heart disease. Over the course of 48 hours, patient diuresed well on IV Lasix and resolution of his presenting symptoms. His blood pressure was uncontrolled, as high as >200 systolic. His Norvasc has been increased to 10mg (from 5mg). In regards to his A. Fib -- he was previously on amidarone, but has remained in persistent A. fib (rates controlled) and hence this has been discontinued. He should continue his INR and Metoprolol as unchanged. The patients chest imaging showed new, small/moderate R pleural effusion - likely secondary to CHF. Repeat imaging can be pursed in several weeks to ensure resolution. Time Spent with Patient Time attestation: Total time spent providing and/or coordinating discharge services: Discharge coordination time: Greater than 30 minutes Quality: Stroke Does the patient have a stroke diagnosis?: No Physical Exam Verdana 4l Vital Signs: Verdana 4d Verdana 4d Vital Signs: Verdana 4d Verdana 4Bd Last Vital Signs Verdana 4d [employer] New 4d [employer] New 4d Temp 98.7 F 10/09/21 07:37 [employer] New 4d Pulse 92 10/09/21 07:37 [employer] New 4d Resp 17 10/09/21 07:37 BP 165/87 H 10/09/21 07:37 Pulse Ox 94 10/09/21 07:37 BMI result Body Mass Index 28.8 Const: Other: General - no acute distress, appears comfortable Cardiovascular - regular rate and rhythm, S1-S2, no edema or jvd Lungs - normal respiratory effort, clear to auscultation bilaterally, no wheezing Abdomen - soft, nontender, no rebound or guarding Extremities - no edema bilaterally Neuro - awake and alert, no focal deficits DS: Data Data Completed and Pending Labs on day of discharge: Laboratory Results - last 24 hr 10/09/21 10/09/21 10/09/21 05:43 05:43 09:38 PT 27.4 H INR 2.4 H Sodium 140 Potassium 3.3 Chloride 97 Carbon Dioxide 35 H Anion Gap 11 L BUN 28 H Creatinine 1.24 Estim Creat Clear Calc 47.0 Estimated GFR 55 Random Glucose 100 Calcium 9.2 B-Natriuretic Peptide 925 H Preliminary micro results at discharge 10/07/21 13:33 Blood Culture - Preliminary Blood - Venous No growth after 24 hours. 10/07/21 13:33 Blood Culture - Preliminary Blood - Venous No growth after 24 hours. Discharge Plan Discharge Patient Disposition: Home Health Service Discharge Diagnosis: Acute CHF, HTN urgency Referrals: Marcos Maurer MD [Primary Care Provider] - 1 Week Discharge Medications: New furosemide 20 mg tablet 20 mg PO DAILY PRN (Reason: edema/weight gain) Qty: 60 0RF amlodipine 10 mg tablet 10 mg PO DAILY Qty: 90 0RF Continued metoprolol succinate 50 mg tablet extended release 24 hr 50 mg PO DAILY 90 Days Qty: 90 0RF warfarin [Jantoven] 5 mg tablet 10 mg PO Q48H 0RF warfarin 5 mg tablet 5 mg PO Q48H 0RF finasteride 5 mg tablet 5 mg PO DAILY 0RF Discontinued amiodarone 200 mg tablet 200 mg PO DAILY Qty: 90 0RF amlodipine 5 mg tablet 5 mg PO DAILY 0RF Discharge Orders: Discharge Order (Routine); Ordered 10/09/21 Ordered By: Elias Gould Diet: advance to usual diet and low salt diet Activity on Discharge: As tolerated Stand Alone Forms: Patient Portal Discharge page Care Plan Goals: To stay healthy and out of the hospital. Health Concerns: CHF, Uncontrolled HTN, A. Fib Plan of Treatment: CHF -- take Lasix 20mg daily as needed for leg swelling and weight gain Uncontrolled blood pressure -- Increase your norvasc (Amlodipine) from 5mg to 10mg daily A. Fib -- Stop taking Amiodarone, continue metorpolol + coumadin Eat a low salt diet Assessment: See d/c summary.
--- NOTE | 2021-10-09 12:17 | MHC.CM.PN ---
PATIENT DOES NOT FEEL ANY NEED FOR [facility] SERVICES HE REPORTEDLY HAS ALREADY MADE HIS CARDIOLOGY APPOINTMENT HIS DAUGHTER WILL PROVIDE TRANSPORT HOME. IMM 2 IN CHART
== END 2021-10-09 14:34 | disposition home or self-care (01) | DRG 291 ==
LOC: HO.ED 17:41 → HO.EDOVER 20:11 → HO.S3 10-08 19:17
PROVIDERS: Nurse Practitioner Acute Care; Admitting Provider Hospitalist; Emergency Provider Emergency Medicine; PCP Internal Medicine; Visit Provider Family Medicine
DX: I11.0 Hypertensive heart disease with heart failure (principal); I50.33 Acute on chronic diastolic (congestive) heart failure; I48.19 Other persistent atrial fibrillation; I16.1 Hypertensive emergency; U09.9 Post COVID-19 condition, unspecified; Z96.641 Presence of right artificial hip joint; F17.210 Nicotine dependence, cigarettes, uncomplicated; Z20.822 Contact with and (suspected) exposure to COVID-19; Z86.16 Personal history of COVID-19; Z71.6 Tobacco abuse counseling; Z79.01 Long term (current) use of anticoagulants; Z79.899 Other long term (current) drug therapy
CPT/HCPCS: 36415; 71045; 71250; 80048; 80076; 83605; 83735; 83880; 84484; 85025; 85610; 87040; 87635; 93005; 93306; 96374; 99285; J1940

== ENCOUNTER 2021-10-21 12:32 | Outpatient (RCR) | payer OTHER, SELFPAY | END 2021-11-06 09:05 | disposition home or self-care (01) | LOC: HO.WCC 12:32 | PROVIDERS: Visit Provider Physician Assistant | DX: S51.012D Laceration without foreign body of left elbow, subsequent encounter (principal); I10 Essential (primary) hypertension; I48.20 Chronic atrial fibrillation, unspecified; H21.01 Hyphema, right eye | CPT/HCPCS: 99212; 99213 ==

== ENCOUNTER 2021-10-24 10:26 | Outpatient (REF) | payer OTHER, SELFPAY ==
[2021-10-24 13:35] LABS: MANUAL DIFF FLAG NO
[2021-10-24 13:42] LABS: Basophils Percent Auto 0.5 % (0-2); Eosinophils Absolute Auto 0.1 X10*3/uL (0.0-0.4); Eosinophils Percent Auto 2.4 % (0-4); Hematocrit 36.8 % (42.0-52.0); Hemoglobin 12.2 g/dl (14.0-18.0); Imm Gran Abs Auto 0.04 X10*3/uL (0.00-0.03); Imm Gran Pct Auto 0.7 % (0.0-0.4); Lymphocytes Absolute Auto 0.8 X10*3/uL (1.2-4.9); Lymphocytes Percent Auto 12.9 % (20-40); Mean Corpuscular HGB Conc 33.2 g/dl (31.0-36.0); Mean Corpuscular Hemoglobin 31.4 pg (27.0-33.0); Mean Corpuscular Volume 94.6 fL (80.0-98.0); Mean Platelet Volume 10.2 fL (9.4-12.4); Monocytes Absolute Auto 0.7 X10*3/uL (0.1-1.2); Monocytes Percent Auto 11.4 % (2-11); Neutrophils Absolute Auto 4.3 x10*3/uL (2.0-8.3); Neutrophils Percent Auto 72.1 % (45-73); Platelet Count 186 X10*3/uL (160-400); Red Blood Count 3.89 X10*6/uL (4.60-5.80); Red Cell Distribution Width 15.1 % (11.0-16.0); White Blood Count 5.9 X10*3/uL (4.8-10.8)
[2021-10-24 13:49] LABS: Alanine Aminotransferase 9 U/L (0-40); Albumin Level 4.2 g/dL (3.5-5.0); Alkaline Phosphatase 96 U/L (39-117); Anion Gap 13 (12-20); Aspartate Amino Transferase 16 U/L (5-37); Bilirubin Total 0.3 mg/dL (0.0-1.0); Blood Urea Nitrogen 20 mg/dL (9-16); Calcium 9.1 mg/dL (8.4-10.2); Carbon Dioxide 28 mmol/L (22-29); Chloride 100 mmol/L (96-108); Estimated Glomerular Filt Rate > 60; Glucose Fasting 105 mg/dL (60-99); Potassium 4.3 mmol/L (3.3-5.1); Sodium 137 mmol/L (135-145); Total Protein 7.3 g/dL (6.5-8.0)
[2021-10-24 13:57] LABS: INTERNATIONAL NORM RATIO 7.5 (0.9-1.1)
[2021-10-24 14:05] LABS: B Type Natriuretic Peptide 488 pg/mL (<100)
== END 2021-10-24 10:27 | disposition home or self-care (01) ==
LOC: HO.10HDL 10:26
PROVIDERS: Visit Provider Internal Medicine
DX: I48.91 Unspecified atrial fibrillation (principal); I11.0 Hypertensive heart disease with heart failure; I50.9 Heart failure, unspecified
CPT/HCPCS: 36415; 80053; 83880; 85025; 85610

== ENCOUNTER 2021-10-29 12:28 | Outpatient (REF) | payer OTHER, SELFPAY ==
[2021-10-29 14:05] LABS: INTERNATIONAL NORM RATIO 1.7 (0.9-1.1); Prothrombin Time 19.2 SEC (9.9-13.0)
== END 2021-10-29 12:29 | disposition home or self-care (01) ==
LOC: HO.10HDLR 12:28
PROVIDERS: Visit Provider Internal Medicine
DX: I48.91 Unspecified atrial fibrillation (principal)
CPT/HCPCS: 36415; 85610

== ENCOUNTER 2021-12-08 12:04 | Outpatient (REF) | payer OTHER, SELFPAY ==
[2021-12-08 13:31] LABS: INTERNATIONAL NORM RATIO 1.1 (0.9-1.1); Prothrombin Time 12.9 SEC (9.9-13.0)
[2021-12-08 13:46] LABS: Anion Gap 12 (12-20); Blood Urea Nitrogen 15 mg/dL (9-16); Calcium 9.5 mg/dL (8.4-10.2); Carbon Dioxide 30 mmol/L (22-29); Chloride 100 mmol/L (96-108); Estimated Glomerular Filt Rate > 60; Glucose Random 108 mg/dL (60-115); Potassium 4.9 mmol/L (3.3-5.1); Sodium 137 mmol/L (135-145)
== END 2021-12-08 12:05 | disposition home or self-care (01) ==
LOC: HO.10HDL 12:04
PROVIDERS: Visit Provider Internal Medicine
DX: I48.91 Unspecified atrial fibrillation (principal); I10 Essential (primary) hypertension; I50.9 Heart failure, unspecified
CPT/HCPCS: 36415; 80048; 85610

== ENCOUNTER 2021-12-20 11:27 | Inpatient (IN) | payer OTHER, SELFPAY ==
--- NOTE | ~2021-12-20 | XR_ITS ---
EXAMINATION: XR CHEST CLINICAL INFORMATION: Dyspnea COMPARISON: October 07, 2021 TECHNIQUE: AP portable view of the chest was obtained. FINDINGS: There is hazy density about the right lung base which may relate to atelectasis and/or layering of pleural effusion. Heart normal size. No evidence of pulmonary edema. No pneumothorax. XR/XR chest 1V IMPRESSION: Right base density likely related to atelectasis and layering of pleural effusion.
--- NOTE | 2021-12-20 11:30 | ECG_ITS ---
Test Reason : SOB Blood Pressure : / mmHG Vent. 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
--- NOTE | 2021-12-20 11:39 | ED.SOB ---
HPI - SOB/Dyspnea General Chief Complaint: Arrhythmia/Palpitations Stated Complaint: afib diff breathing Time Seen by Provider: 12/20/21 11:37 Source: patient and old records reviewed Mode of arrival: ambulatory Limitations: no limitations History of Present Illness HPI Narrative: 85% on arrival to the ED walking in rapid afib MD elicited complaint: shortness of breath (LE edema) Pertinent past history: other (afib, CHF on coumadin) Onset (ago): day(s) (2) Context: other (skipped his lasix x 2 days he didn't want to have to pee when he went out) Timing: progressively worsening Severity: moderate Exacerbating factors: lying flat Relieving factors: nothing Known history of: other (afib, chf) Associated symptoms: cough and other (LE edema) Treatment prior to arrival: none Related Data Home Medications Medication Instructions Recorded Confirmed finasteride 5 mg tablet 5 mg PO DAILY tab 08/27/20 10/07/21 warfarin 5 mg tablet 5 mg PO Q48H 08/27/20 10/07/21 warfarin 5 mg tablet (Jantoven) 10 mg PO Q48H 09/22/21 10/07/21 Previous Rx's Medication Instructions Recorded metoprolol succinate 50 mg 50 mg PO DAILY 90 Days #90 cap 08/11/21 tablet,extended release 24 hr amlodipine 10 mg tablet 10 mg PO DAILY #90 tab 10/09/21 furosemide 20 mg tablet 20 mg PO DAILY PRN #60 tab 10/09/21 Allergies Allergy/AdvReac Type Severity Reaction Status Date / Time No Known Allergies Allergy Mild NOT Verified 12/20/21 11:44 APPLICABLE Review of Systems Review of Systems: Constitutional : No Fever, No Chills ENT/Mouth : No sore throat, No Rhinorrhea, No Swallowing Difficulty Eyes: No Eye Pain, No Swelling, No Redness Cardiovascular : No Chest Pain, positive SOB, No Orthopnea, positive Edema Respiratory : No Cough, No Sputum, No Wheezing, positive dyspnea Gastrointestinal : No Nausea, No Vomiting, No Diarrhea, No abdominal Pain, No Hematochezia, No Melena Genitourinary : No Dysuria, No Urinary Frequency, No Hematuria Musculoskeletal : No joint pain, No Myalgias Skin : No Skin Lesions, No rash Neuro : No Weakness, No Numbness, No Dizziness, No Headache Psych : No Anxiety/Panic, No Depression Heme/Lymph: No Bruising, No Lymphadenopathy Endocrine : No Polyuria, No Polydipsia All other systems reviewed and are negative [facility] Past Medical History Attestation statement: The following information was validated with the patient. Medical History (HFpEF) heart failure with preserved ejection fraction Acute on chronic diastolic (congestive) heart failure BPH (benign prostatic hyperplasia) CHF (congestive heart failure) Congestive heart failure Herpes zoster, ocular HTN (hypertension) Hypertensive emergency Osteoarthritis Paroxysmal atrial fibrillation Persistent atrial fibrillation Pleural effusion Pleural effusion Pneumonitis Surgical History H/O cataract extraction History of cardioversion History of total right hip arthroplasty Status post colonoscopy with polypectomy Family History Family History Father No problems noted. Mother No problems noted. Social History Social History Household Members: Spouse Housing: House Do you presently have visiting nurse or other home services: No Alcohol intake: current Alcohol intake frequency: holidays/special occasions only Patient Tobacco Use Status: Former Tobacco user Tobacco use type: Cigarette Years Smoked: 18 years Advance Directives: Yes Advance Directives on File: Yes Advance Directives Date on File: 04/16/21 service: Yes ([employer]ERVES) Current occupational status: retired Physical Exam Vital Signs: Vital Signs: Last Vital Signs Temp 98.2 F 12/20/21 11:42 Pulse 110 H 12/20/21 12:53 Resp 22 H 12/20/21 12:53 BP 162/98 H 12/20/21 12:53 Pulse Ox 92 12/20/21 12:53 BMI result Body Mass Index 14.1 Appearance: Alert. Oriented X3. Mild acute distress. Eyes: Pupils equal, round and reactive to light. ENT: Pharynx normal. Neck: Normal inspection. Neck supple. CVS: tachycardic irregular heart rate and rhythm. Pulses normal. Respiratory: Mild respiratory distress - tachypnea and retractions. Breath sounds diminished at bases Abdomen: Soft and non-tender. Skin: Skin warm and dry. Normal skin color. Normal skin turgor. Extremities: 2+ pitting lower extremity edema. No calf ttp Neuro: Oriented X 3. No motor deficit. No sensory deficit. Course Course Course Narrative: HR 89 after IV dilt, BP 97% on 2L NC on dilt gtt HR back up given IV lasix BNP elevated will admit for diuresis MDM - SOB/Dyspnea MDM Narrative Medical decision making narrative: 86 yo male with afib on metoprolol and coumadin, HTN, CHF, here with c/o dyspnea, LE edema - admits to not taking his lasix for a couple of days due to not wanting to have to pee while going out to eat. At this time he is in rapid afib will need labs, EKG, CXR, IV dilt to slow him down. IV lasix for diuresis. He denies CP. Dispo per results and findings. Lab Data Result diagrams: 12/20/21 12:00 12/20/21 12:00 Labs: Lab Results 12/20/21 12/20/21 12/20/21 Range/Units 12:00 12:00 12:00 WBC 7.5 (4.8-10.8) X10*3/uL RBC 3.92 L (4.60-5.80) X10*6/uL Hgb 12.1 L (14.0-18.0) g/dl Hct 38.1 L (42.0-52.0) % MCV 97.2 (80.0-98.0) fL MCH 30.9 (27.0-33.0) pg MCHC 31.8 (31.0-36.0) g/dl RDW 15.3 (11.0-16.0) % Plt Count 161 (160-400) X10*3/uL MPV 9.5 (9.4-12.4) fL Immature Gran % (Auto) 0.3 (0.0-0.4) % Neut % (Auto) 85.6 H (45-73) % Lymph % (Auto) 5.6 L (20-40) % Henderson % (Auto) 7.9 (2-11) % Eos % (Auto) 0.3 (0-4) % Baso % (Auto) 0.3 (0-2) % Lymph # (Auto) 0.4 L (1.2-4.9) X10*3/uL Henderson # (Auto) 0.6 (0.1-1.2) X10*3/uL Eos # (Auto) 0.0 (0.0-0.4) X10*3/uL Baso # (Auto) 0.0 (0.0-0.2) X10*3/uL Abs Immat Gran (auto) 0.02 (0.00-0.03) X10*3/uL Absolute Neuts (auto) 6.4 (2.0-8.3) x10*3/uL Absolute Nucleated RBC 0.000 (0.0-0.012) X10*3/uL Nucleated RBC % (auto) 0.0 (0.0-0.2) /100WBC PT 17.5 H (9.9-13.0) SEC INR 1.5 H (0.9-1.1) Sodium 144 (135-145) mmol/L Potassium 4.1 (3.3-5.1) mmol/L Chloride 106 (96-108) mmol/L Carbon Dioxide 25 (22-29) mmol/L Anion Gap 17 (12-20) BUN 30 H D (9-16) mg/dL Creatinine 1.30 (0.5-1.4) mg/dL Estim Creat Clear Calc 24.9 Estimated GFR 52 Random Glucose 99 (60-115) mg/dL Calcium 9.4 (8.4-10.2) mg/dL Magnesium 2.0 (1.6-2.6) mg/dL Total Bilirubin 0.7 (0.0-1.0) mg/dL Direct Bilirubin 0.3 (0.0-0.5) mg/dL AST 20 (5-37) U/L ALT 12 (0-40) U/L Alkaline Phosphatase 91 (39-117) U/L Troponin I High Sens (<3.5-35.0) ng/L B-Natriuretic Peptide (<100) pg/mL Total Protein 7.8 (6.5-8.0) g/dL Albumin 4.3 (3.5-5.0) g/dL COVID-19 (TAMI) (Negative) COVID-19 Clin Com 12/20/21 12/20/21 Range/Units 12:00 12:02 WBC (4.8-10.8) X10*3/uL RBC (4.60-5.80) X10*6/uL Hgb (14.0-18.0) g/dl Hct (42.0-52.0) % MCV (80.0-98.0) fL MCH (27.0-33.0) pg MCHC (31.0-36.0) g/dl RDW (11.0-16.0) % Plt Count (160-400) X10*3/uL MPV (9.4-12.4) fL Immature Gran % (Auto) (0.0-0.4) % Neut % (Auto) (45-73) % Lymph % (Auto) (20-40) % Henderson % (Auto) (2-11) % Eos % (Auto) (0-4) % Baso % (Auto) (0-2) % Lymph # (Auto) (1.2-4.9) X10*3/uL Henderson # (Auto) (0.1-1.2) X10*3/uL Eos # (Auto) (0.0-0.4) X10*3/uL Baso # (Auto) (0.0-0.2) X10*3/uL Abs Immat Gran (auto) (0.00-0.03) X10*3/uL Absolute Neuts (auto) (2.0-8.3) x10*3/uL Absolute Nucleated RBC (0.0-0.012) X10*3/uL Nucleated RBC % (auto) (0.0-0.2) /100WBC PT (9.9-13.0) SEC INR (0.9-1.1) Sodium (135-145) mmol/L Potassium (3.3-5.1) mmol/L Chloride (96-108) mmol/L Carbon Dioxide (22-29) mmol/L Anion Gap (12-20) BUN (9-16) mg/dL Creatinine (0.5-1.4) mg/dL Estim Creat Clear Calc Estimated GFR Random Glucose (60-115) mg/dL Calcium (8.4-10.2) mg/dL Magnesium (1.6-2.6) mg/dL Total Bilirubin (0.0-1.0) mg/dL Direct Bilirubin (0.0-0.5) mg/dL AST (5-37) U/L ALT (0-40) U/L Alkaline Phosphatase (39-117) U/L Troponin I High Sens 41.0 H (<3.5-35.0) ng/L B-Natriuretic Peptide 1145 H (<100) pg/mL Total Protein (6.5-8.0) g/dL Albumin (3.5-5.0) g/dL COVID-19 (TAMI) Negative (Negative) COVID-19 Clin Com See Note ECG Data Attestation: I personally reviewed and interpreted this ECG as follows: ECG interpretation date: 12/20/21 ECG interpretation time: 11:41 Interpretation: Rate: 123 Rhythm: afib with RVR [place]: normal RBBB ST T wave : no ANAYA, nonspecific changes noted qTC: prolonged prior studies: afib and RBBB is old The study has been interpreted contemporaneously by me. . Critical Care Time Critical Care Time Critical Care Time: Yes Total Critical Care Time: 45 Attestation: repat IV dilt, dilt gtt, hypoxia correction, IV lasix I attest to this time spent taking care of the patient Discharge Plan Discharge Clinical Impression: Atrial fibrillation with rapid ventricular response, CHF (congestive heart failure), Hypoxia Patient Disposition: Admitted As Inpatient
[2021-12-20 11:42] VITALS: BP 191/90; PULSE 114; RESP 28; TEMP 36.8; O2SAT 85; BMI 14.1
[2021-12-20] MEDS: dilTIAZem HCL 50 MG/10 ML VIAL 10 MG IVPUSH (12:03)
[2021-12-20] MEDS: Furosemide 40 MG/4 ML VIAL IVPUSH ×2 (12:05→17:18)
[2021-12-20 12:06] LABS: MANUAL DIFF FLAG NO
[2021-12-20 12:11] LABS: Basophils Percent Auto 0.3 % (0-2); Eosinophils Percent Auto 0.3 % (0-4); Hematocrit 38.1 % (42.0-52.0); Hemoglobin 12.1 g/dl (14.0-18.0); Imm Gran Abs Auto 0.02 X10*3/uL (0.00-0.03); Imm Gran Pct Auto 0.3 % (0.0-0.4); Lymphocytes Absolute Auto 0.4 X10*3/uL (1.2-4.9); Lymphocytes Percent Auto 5.6 % (20-40); Mean Corpuscular HGB Conc 31.8 g/dl (31.0-36.0); Mean Corpuscular Hemoglobin 30.9 pg (27.0-33.0); Mean Corpuscular Volume 97.2 fL (80.0-98.0); Mean Platelet Volume 9.5 fL (9.4-12.4); Monocytes Absolute Auto 0.6 X10*3/uL (0.1-1.2); Monocytes Percent Auto 7.9 % (2-11); Neutrophils Absolute Auto 6.4 x10*3/uL (2.0-8.3); Neutrophils Percent Auto 85.6 % (45-73); Platelet Count 161 X10*3/uL (160-400); Red Blood Count 3.92 X10*6/uL (4.60-5.80); Red Cell Distribution Width 15.3 % (11.0-16.0); White Blood Count 7.5 X10*3/uL (4.8-10.8)
[2021-12-20 12:17] LABS: INTERNATIONAL NORM RATIO 1.5 (0.9-1.1); Prothrombin Time 17.5 SEC (9.9-13.0)
[2021-12-20 12:27] LABS: Alanine Aminotransferase 12 U/L (0-40); Albumin Level 4.3 g/dL (3.5-5.0); Alkaline Phosphatase 91 U/L (39-117); Anion Gap 17 (12-20); Aspartate Amino Transferase 20 U/L (5-37); Bilirubin Direct 0.3 mg/dL (0.0-0.5); Bilirubin Total 0.7 mg/dL (0.0-1.0); Blood Urea Nitrogen 30 mg/dL (9-16); Calcium 9.4 mg/dL (8.4-10.2); Carbon Dioxide 25 mmol/L (22-29); Chloride 106 mmol/L (96-108); Creatinine Clr Calc Pharmacy 24.9; Estimated Glomerular Filt Rate 52; Glucose Random 99 mg/dL (60-115); Potassium 4.1 mmol/L (3.3-5.1); Sodium 144 mmol/L (135-145); Total Protein 7.8 g/dL (6.5-8.0)
[2021-12-20 12:33] LABS: B Type Natriuretic Peptide 1145 pg/mL (<100)
[2021-12-20 12:49] LABS: COVID-19 Test Negative (Negative); IDNOW Serial# 55D5AD1C
[2021-12-20 12:53] VITALS: BP 162/98; PULSE 110; RESP 22; O2SAT 92
[2021-12-20] MEDS: dilTIAZem HCL 125 MG in 0.9 % Sodium Chloride 100 ML IVCONT (12:54)
--- NOTE | 2021-12-20 12:56 | PC.NURSE ---
Diltiazem gtt started at 5mg/hr per Dr. Olivas verbal order.
--- NOTE | 2021-12-20 13:42 | P.HPHOSP_ITS ---
History of Present Illness Date of Service: 12/20/21 Attending physician on admission: Sangeeta Hannah Chief Complaint: Shortness of breath 86-year-old gentleman with past medical history of hypertension, CHF with preserved EF, persistent atrial fibrillation, BPH presented to [facility] with chief complaint of shortness of breath of 3 days duration symptoms occurs mostly at a.m. and gets better in the evening he denies associated symptoms of chest pain, no palpitations denies orthopnea, no PND he missed 2 days of Lasix since he was going out into not want to to urinate in a restaurant, he called his PCP yesterday due to symptoms of chest congestion and cough productive of clear phlegm and an antibiotic was prescribed, he denies associated fever, chills, denies sick contacts, admits compliance to all other medications, workup in the ER showed an elevated BNP 1145, troponin 41 creatinine of 1.3, INR subtherapeutic 1.5, oxygenation 85% on arrival elevated blood pressure 191/90 and pulse 114 irregular, EKG showed atrial fibrillation with ventricular rate in 120s, right bundle branch block QTC 549, no acute ischemic change, prior EKG also showed elevated QTC, patient treated in the emergency room with IV diltiazem 10 mg, IV Lasix 40 mg and due to persistent tachycardia patient has been started on IV Cardizem drip and now being admitted to [facility] with diagnosis of acute on chronic congestive heart failure with preserved EF, acute hypoxic respiratory failure and AFib with RVR. Review of Systems Review of Systems: General no headache, no dizziness no fever chills. CVS no chest pain, no palpitation. Respiratory cough productive of clear phlegm and shortness of breath Gastrointestinal no nausea, no vomiting, no abdominal pain Yes all other systems are reviewed and are negative [facility] Medical History (HFpEF) heart failure with preserved ejection fraction Acute on chronic diastolic (congestive) heart failure BPH (benign prostatic hyperplasia) CHF (congestive heart failure) Congestive heart failure Herpes zoster, ocular HTN (hypertension) Hypertensive emergency Osteoarthritis Paroxysmal atrial fibrillation Persistent atrial fibrillation Pleural effusion Pleural effusion Pneumonitis Family History Father No problems noted. Mother No problems noted. Surgical History H/O cataract extraction History of cardioversion History of total right hip arthroplasty Status post colonoscopy with polypectomy Social History Household Members: None Housing: House Do you presently have visiting nurse or other home services: No Alcohol intake: never Patient Tobacco Use Status: Never used Tobacco Tobacco use type: Cigarette Years Smoked: 18 years e-Cigarette/Vaping Use: Never Used Use of substances other than those prescribed or required for medical reasons: No Currently Displaying Signs/Symptoms of Drug Intoxication Withdrawal: No Any prior treatment program specific to substance use: No Have you been hit, kicked, punched, or otherwise hurt by someone within the past year? If so, by whom?: No Do you feel safe in your current relationship?: No Current Relationship Is there a partner from a previous relationship who is making you feel unsafe now?: No Are you made to feel afraid or neglected: No Advance Directives: Yes Advance Directives on File: Yes Advance Directives Date on File: 04/16/21 Do you have thoughts of harming others: None Do you have a plan to hurt others: No Plan Nutrition Risks: No Nutritional Risk Poor oral hygiene: No service: Yes ([employer]ERVES) Current occupational status: retired Meds Allergies Allergy/AdvReac Type Severity Reaction Status Date / Time No Known Allergies Allergy Mild NOT Verified 12/20/21 11:44 APPLICABLE Active Medications: Current Medications Acetaminophen (Acetaminophen 325 Mg Tablet) 650 mg PO Q6H PRN PRN Reason: Pain, Mild (Pain Scale 1-3) Diltiazem HCl 125 mg/ Sodium (Chloride) 125 mls @ 0 mls/hr IVCONT .Q0M [facility]; Protocol Last Admin: 12/20/21 12:54 Dose: 5 mg/hr, 5 mls/hr Documented by: Ondansetron HCl (Ondansetron Hcl 4 Mg/2 Ml Vial) 4 mg IVPUSH Q8H PRN PRN Reason: Nausea and Vomiting Sodium Chloride (0.9 % Sodium Chloride Flush 3 Ml Syringe) [address] [facility] Home Medications Medication Instructions Recorded Confirmed Last Taken Type finasteride 5 mg tablet 5 mg PO DAILY tab 08/27/20 12/20/21 12/19/21 History warfarin 5 mg tablet 5 mg PO Q48H 08/27/20 12/20/21 12/19/21 History warfarin 5 mg tablet (Jantoven) 10 mg PO Q48H 09/22/21 12/20/21 12/18/21 History betamethasone dipropionate 0.05 % 1 appl TOPICAL BID 12/20/21 12/20/21 12/19/21 History lotion chlorhexidine gluconate 0.12 % 1 appl PO BID 12/20/21 12/20/21 12/19/21 History mouthwash doxycycline hyclate 100 mg capsule 1 cap PO BID 12/20/21 12/20/21 12/19/21 History prednisone 20 mg tablet 1 tab PO DAILY 12/20/21 12/20/21 12/19/21 History Physical Exam Vital Signs and Narrative: Vital Signs: Last Vital Signs Temp 98.2 F 12/20/21 11:42 Pulse 110 H 12/20/21 12:53 Resp 22 H 12/20/21 12:53 BP 162/98 H 12/20/21 12:53 Pulse Ox 92 12/20/21 12:53 BMI result Body Mass Index 14.1 Const: Other: General awake alert,in no acute distress. Pupils equal to light and accommodation, anicteric sclerae Neck no JVD. CVS irregular rate rhythm, Respiratory lungs bibasilar crackles, no use of accessory muscles Gastrointestinal abdomen soft, nontender, bowel sounds audible Extremities bilateral pitting edema, mild hyperemia no warmth few dry scabs left lower extremity Neuro nonfocal hard of hearing Psych appropriate affect Musculoskeletal no deformity Results Labs CBC and Chem 7: 12/20/21 12:00 12/21/21 04:51 Labs: Laboratory Results - last 24 hr 12/20/21 12/20/21 12/20/21 12:00 12:00 12:00 MCV 97.2 MCH 30.9 MCHC 31.8 RDW 15.3 Plt Count 161 MPV 9.5 Immature Gran % (Auto) 0.3 Neut % (Auto) 85.6 H Lymph % (Auto) 5.6 L Blair % (Auto) 7.9 Eos % (Auto) 0.3 Baso % (Auto) 0.3 Lymph # (Auto) 0.4 L [place] # (Auto) 0.6 Eos # (Auto) 0.0 Baso # (Auto) 0.0 Abs Immat Gran (auto) 0.02 Absolute Neuts (auto) 6.4 Absolute Nucleated RBC 0.000 Nucleated RBC % (auto) 0.0 PT 17.5 H INR 1.5 H Anion Gap 17 Estim Creat Clear Calc 24.9 Estimated GFR 52 Random Glucose 99 Calcium 9.4 Magnesium 2.0 Total Bilirubin 0.7 Direct Bilirubin 0.3 AST 20 ALT 12 Alkaline Phosphatase 91 Troponin I High Sens B-Natriuretic Peptide Total Protein 7.8 Albumin 4.3 COVID-19 (TAMI) COVID-19 [employer] 12/20/21 12/20/21 12:00 12:02 MCV MCH MCHC RDW Plt Count MPV Immature Gran % (Auto) Neut % (Auto) Lymph % (Auto) Blair % (Auto) Eos % (Auto) Baso % (Auto) Lymph # (Auto) Blair # (Auto) Eos # (Auto) Baso # (Auto) Abs Immat Gran (auto) Absolute Neuts (auto) Absolute Nucleated RBC Nucleated RBC % (auto) PT INR Anion Gap Estim Creat Clear Calc Estimated GFR Random Glucose Calcium Magnesium Total Bilirubin Direct Bilirubin AST ALT Alkaline Phosphatase Troponin I High Sens 41.0 H B-Natriuretic Peptide 1145 H Total Protein Albumin COVID-19 (TAMI) Negative COVID-19 [employer] See Note Imaging Radiologist's Impressions: Impressions Chest X-Ray 12/20/21 11:50 IMPRESSION: Right base density likely related to atelectasis and layering of pleural effusion. Assessment and Plan (1) Atrial fibrillation with rapid ventricular response: Status: Acute (2) CHF (congestive heart failure): Qualifiers: Heart failure chronicity: acute on chronic Heart failure type: unspecified Qualified Code(s): I50.9 - Heart failure, unspecified Status: Acute (3) Hypoxia: Status: Acute (4) HTN (hypertension): Status: Acute Plan 86-year-old gentleman with past medical history significant for hypertension, CHF with preserved EF, persistent atrial fibrillation, BPH, arthritis presented to [facility] with chief complaint of shortness of breath of 3 days duration patient skipped his dose of diuretics x2 days also noted to have low INR likely noncompliant with home medications. Patient will be admitted to intermediate care unit for close monitoring and treatment. Acute on chronic congestive heart failure with preserved EF. CHF exacerbation likely due to noncompliance with medication/uncontrolled blood pressure Will admit to telemetry place on Lasix 40 mg IV b.i.d. Follow BMP and BNP/daily weight /i/os, patient declined Curiel catheter for fluid managment Cardiac diet Recent echocardiogram October 2021 showed EF 50-55% no evidence of regional wall motion abnormality, indeterminate diastolic function. Obtain cardiology consult Atrial fibrillation with RVR with history of Ch.Persistent atrial fibrillation On IV Cardizem drip will gradually wean, was on amiodarone previously Resume metoprolol and Coumadin follow INR subtherapeutic likely due to noncompliance. Uncontrolled blood pressure Take amlodipine 10 mg and metoprolol 50 mg at home, will resume home medication and follow BP, BP remains elevated will increase dose of metoprolol to 100 Code status full code DVT prophylaxis on Coumadin Patient will need two night stay in hospital due to acute congestive heart failure requiring IV diuretics and atrial fibrillation with RVR requiring IV Cardizem drip. Quality Stroke Does the patient have a stroke diagnosis?: No VTE Prior VTE?: No VTE Risk Level:: Medical - moderate - high VTE Device Contraindication: Treatment Not Indicated VTE Drug Contraindication: N/A - Med Ordered
[2021-12-20 13:45] VITALS: BP 159/94; PULSE 106; RESP 24; TEMP 36.8; O2SAT 97
--- NOTE | 2021-12-20 14:35 | PHA.MEDREC ---
Pharmacy Consult ? Medication Reconciliation Pharmacy has completed the medication reconciliation. SPOKE WITH PT. Has not taken his lasix in a few days because he had things to do . He alternates his warfarin 5 mg with 10 mg. He believes he is due to 10 mg warfarin today but wasn't 100% sure.
--- NOTE | 2021-12-20 14:48 | PC.NURSE ---
rn to rn report given to lizet robb aware of plan of care for transfer to room 459
[2021-12-20 15:20] VITALS: BP 177/94; PULSE 101; RESP 16; TEMP 36.9; O2SAT 91
[2021-12-20] MEDS: Warfarin Sodium 10 MG TABLET PO (17:17)
[2021-12-20] MEDS: Metoprolol Tartrate 25 MG TABLET PO ×2 (17:17→20:56)
[2021-12-20] MEDS: guaiFENesin DM 100/10/5 ML 5 ML SYRUP PO ×2 (17:18→20:56)
[2021-12-20 19:22] VITALS: BP 141/94; PULSE 87; RESP 18; TEMP 36.7; O2SAT 94
[2021-12-21] VITALS (7 sets, daily range): BP systolic 126–174; BP diastolic 62–88; PULSE 64–101; RESP 15–20; TEMP 36.3–37.1; O2SAT 90–95; BMI 29.2
[2021-12-21] MEDS: guaiFENesin DM 100/10/5 ML 5 ML SYRUP PO ×3 (02:31→08:35)
[2021-12-21 05:38] LABS: INTERNATIONAL NORM RATIO 1.5 (0.9-1.1); Prothrombin Time 17.1 SEC (9.9-13.0)
[2021-12-21 06:27] LABS: Anion Gap 18 (12-20); Blood Urea Nitrogen 27 mg/dL (9-16); Calcium 9.2 mg/dL (8.4-10.2); Carbon Dioxide 28 mmol/L (22-29); Chloride 99 mmol/L (96-108); Creatinine Clr Calc Pharmacy 27.7; Estimated Glomerular Filt Rate 59; Glucose Random 91 mg/dL (60-115); Potassium 3.6 mmol/L (3.3-5.1); Sodium 141 mmol/L (135-145)
[2021-12-21] MEDS: Metoprolol Tartrate 25 MG TABLET PO (08:34)
[2021-12-21] MEDS: amLODIPine Besylate 10 MG TABLET PO (08:34)
[2021-12-21] MEDS: Furosemide 40 MG/4 ML VIAL IVPUSH ×2 (08:35→18:37)
[2021-12-21] MEDS: Finasteride 5 MG TABLET PO (08:35)
[2021-12-21] MEDS: dilTIAZem HCL 125 MG in 0.9 % Sodium Chloride 100 ML IVCONT (08:35)
--- NOTE | 2021-12-21 09:50 | MHC.CM.PN ---
met with pt who lives alone pt had no servceis prior to admisison and doesd not expect to need servceis when dcd pts siter will transport home
--- NOTE | 2021-12-21 11:10 | P.CONCA_ITS ---
History of Present Illness History of Present Illness Date of Service: 12/21/21 Requesting physician: Sangeeta Hannah Chief complaint: Congestive heart failure Narrative: 86-year-old gentleman who has background history of paroxysmal atrial fibrillation, hypertension and diastolic heart failure who is presenting with shortness of breath progressive over the last couple of days. He has not been taking furosemide because he had some tenderness to go to and he missed his diuretics. Also in the previous weeks he has not taken diuretics on some days. He said he started noticing some shortness of breath a day ago which progressed and he came to the emergency department. He also noticed some palpitations and was noted to be in AFib with RVR. He has elevated blood pressures and was noted to be in congestive heart failure also. Was started on Cardizem drip with good rate control and was given diuretics and is feeling much better. Denying chest discomfort. Recent echocardiography has shown EF of 50-55% with biatrial enlargement. [facility] Past Medical History Medical History (HFpEF) heart failure with preserved ejection fraction Acute on chronic diastolic (congestive) heart failure BPH (benign prostatic hyperplasia) CHF (congestive heart failure) Congestive heart failure Herpes zoster, ocular HTN (hypertension) Hypertensive emergency Osteoarthritis Paroxysmal atrial fibrillation Persistent atrial fibrillation Pleural effusion Pleural effusion Pneumonitis Family History Family History Father No problems noted. Mother No problems noted. Surgical History Surgical History H/O cataract extraction History of cardioversion History of total right hip arthroplasty Status post colonoscopy with polypectomy Social History Social History Household Members: None Housing: House Do you presently have visiting nurse or other home services: No Alcohol intake: never Patient Tobacco Use Status: Never used Tobacco Tobacco use type: Cigarette Years Smoked: 18 years e-Cigarette/Vaping Use: Never Used Use of substances other than those prescribed or required for medical reasons: No Currently Displaying Signs/Symptoms of Drug Intoxication Withdrawal: No Any prior treatment program specific to substance use: No Have you been hit, kicked, punched, or otherwise hurt by someone within the past year? If so, by whom?: No Do you feel safe in your current relationship?: No Current Relationship Is there a partner from a previous relationship who is making you feel unsafe now?: No Are you made to feel afraid or neglected: No Advance Directives: Yes Advance Directives on File: Yes Advance Directives Date on File: 04/16/21 Do you have thoughts of harming others: None Do you have a plan to hurt others: No Plan Nutrition Risks: No Nutritional Risk Poor oral hygiene: No service: Yes (RESERVES) Current occupational status: retired [employer] Allergies Allergy/AdvReac Type Severity Reaction Status Date / Time No Known Allergies Allergy Mild NOT Verified 12/20/21 11:44 APPLICABLE Active Medications: Current Medications Acetaminophen (Acetaminophen 325 Mg Tablet) 650 mg PO Q6H PRN PRN Reason: Pain, Mild (Pain Scale 1-3) Amlodipine Besylate (Amlodipine Besylate 10 Mg Tablet) 10 mg PO DAILY [facility]; Protocol Last Admin: 12/21/21 08:34 Dose: 10 mg Documented by: Finasteride (Finasteride 5 Mg Tablet) 5 mg PO DAILY [facility] Last Admin: 12/21/21 08:35 Dose: 5 mg Documented by: Furosemide (Furosemide 40 Mg/4 Ml Vial) 40 mg IVPUSH BID@0900,1800 [facility]; Protocol Last Admin: 12/21/21 08:35 Dose: 40 mg Documented by: Guaifenesin/Dextromethorphan (Guaifenesin Dm 100/10/5 Ml 5 Ml Syrup) 5 ml PO Q6H [facility] Last Admin: 12/21/21 08:35 Dose: 5 ml Documented by: Diltiazem HCl 125 mg/ Sodium (Chloride) 125 mls @ 0 mls/hr IVCONT .Q0M [facility]; Protocol Last Titration: 12/21/21 11:03 Dose: 0 mg/hr, 0 mls/hr Documented by: Metoprolol Tartrate (Metoprolol Tartrate 12.5 Mg Halftab) 37.5 mg PO QID [facility]; Protocol Ondansetron HCl (Ondansetron Hcl 4 Mg/2 Ml Vial) 4 mg IVPUSH Q8H PRN PRN Reason: Nausea and Vomiting Sodium Chloride (0.9 % Sodium Chloride Flush 3 Ml Syringe) 3 ml IVFLUSH QSHIFT [facility] Last Admin: 12/21/21 09:05 Dose: Not Given Documented by: Warfarin Sodium (Warfarin Sodium 10 Mg Tablet) 10 mg PO Q48H [facility] Last Admin: 12/20/21 17:17 Dose: 10 mg Documented by: Warfarin Sodium (Warfarin Sodium 5 Mg Tablet) 5 mg PO Q48H [facility] Home Medications Medication Instructions Recorded Confirmed Last Taken Type finasteride 5 mg tablet 5 mg PO DAILY tab 08/27/20 12/20/21 12/19/21 History warfarin 5 mg tablet 5 mg PO Q48H 08/27/20 12/20/21 12/19/21 History warfarin 5 mg tablet (Jantoven) 10 mg PO Q48H 09/22/21 12/20/21 12/18/21 History betamethasone dipropionate 0.05 % 1 appl TOPICAL BID 12/20/21 12/20/21 12/19/21 History lotion chlorhexidine gluconate 0.12 % 1 appl PO BID 12/20/21 12/20/21 12/19/21 History mouthwash doxycycline hyclate 100 mg capsule 1 cap PO BID 12/20/21 12/20/21 12/19/21 Histo ry prednisone 20 mg tablet 1 tab PO DAILY 12/20/21 12/20/21 12/19/21 History Physical Exam Vital Signs: Vital Signs: Last Vital Signs Temp 98.4 F 12/21/21 08:00 Pulse 75 12/21/21 08:00 Resp 20 12/21/21 08:00 BP 171/87 H 12/21/21 08:00 Pulse Ox 92 12/21/21 08:00 BMI result Body Mass Index 29.2 GENERAL APPEARANCE: in no acute distress, pleasant. NECK: no carotid bruit, + jugular venous distention. SKIN: no suspicious lesions, warm and dry. HEART: no murmurs, irregular rate and rhythm, S3 gallop. LUNGS: clear to auscultation bilaterally. ABDOMEN: soft, nontender. EXTREMITIES: Mild edema. PERIPHERAL PULSES: equal. NEUROLOGIC: No gross deficits, AAO X 3 Objective Labs and Meds Result diagrams: 12/20/21 12:00 12/21/21 04:51 Lab results: Laboratory Results - last 24 hr 12/20/21 12/20/21 12/20/21 12:00 12:00 12:00 WBC 7.5 RBC 3.92 L Hgb 12.1 L Hct 38.1 L MCV 97.2 MCH 30.9 MCHC 31.8 RDW 15.3 Plt Count 161 MPV 9.5 Immature Gran % (Auto) 0.3 Neut % (Auto) 85.6 H Lymph % (Auto) 5.6 L [place] % (Auto) 7.9 Eos % (Auto) 0.3 Baso % (Auto) 0.3 Lymph # (Auto) 0.4 L [place] # (Auto) 0.6 Eos # (Auto) 0.0 Baso # (Auto) 0.0 Abs Immat Gran (auto) 0.02 Absolute Neuts (auto) 6.4 Absolute Nucleated RBC 0.000 Nucleated RBC % (auto) 0.0 PT 17.5 H INR 1.5 H Sodium 144 Potassium 4.1 Chloride 106 Carbon Dioxide 25 Anion Gap 17 BUN 30 H D Creatinine 1.30 Estim Creat Clear Calc 24.9 Estimated GFR 52 Random Glucose 99 Calcium 9.4 Magnesium 2.0 Total Bilirubin 0.7 Direct Bilirubin 0.3 AST 20 ALT 12 Alkaline Phosphatase 91 Troponin I High Sens B-Natriuretic Peptide Total Protein 7.8 Albumin 4.3 COVID-19 ([facility]AMI) COVID-[employer] [facility] 12/20/21 12/20/21 12/21/21 12:00 12:02 04:51 WBC RBC Hgb Hct MCV MCH MCHC RDW Plt Count MPV Immature Gran % (Auto) Neut % (Auto) Lymph % (Auto) [place] % (Auto) Eos % (Auto) Baso % (Auto) Lymph # (Auto) [place] # (Auto) Eos # (Auto) Baso # (Auto) Abs Immat Gran (auto) Absolute Neuts (auto) Absolute Nucleated RBC Nucleated RBC % (auto) PT INR Sodium 141 Potassium 3.6 Chloride 99 Carbon Dioxide 28 Anion Gap 18 BUN 27 H Creatinine 1.17 Estim Creat Clear Calc 27.7 Estimated GFR 59 Random Glucose 91 Calcium 9.2 Magnesium Total Bilirubin Direct Bilirubin AST ALT Alkaline Phosphatase Troponin I High Sens 41.0 H B-Natriuretic Peptide 1145 H Total Protein Albumin COVID-19 ([facility]AMI) Negative COVID-[facility] [facility] See Note 12/21/21 04:51 WBC RBC Hgb Hct MCV MCH MCHC RDW Plt Count MPV Immature Gran % (Auto) Neut % (Auto) Lymph % (Auto) [place] % (Auto) Eos % (Auto) Baso % (Auto) Lymph # (Auto) [place] # (Auto) Eos # (Auto) Baso # (Auto) Abs Immat Gran (auto) Absolute Neuts (auto) Absolute Nucleated RBC Nucleated RBC % (auto) PT 17.1 H INR 1.5 H Sodium Potassium Chloride Carbon Dioxide Anion Gap BUN Creatinine Estim Creat Clear Calc Estimated GFR Random Glucose Calcium Magnesium Total Bilirubin Direct Bilirubin AST ALT Alkaline Phosphatase Troponin I High Sens B-Natriuretic Peptide Total Protein Albumin COVID-19 ([facility]AMI) COVID-19 Clin Com Imaging Radiologist's impression: Impressions Chest X-Ray 12/20/21 11:50 IMPRESSION: Right base density likely related to atelectasis and layering of pleural effusion. Assessment and Plan (1) Atrial fibrillation with rapid ventricular response: Status: Acute (2) CHF (congestive heart failure): Qualifiers: Heart failure chronicity: acute on chronic Heart failure type: unspeci fied Qualified Code(s): I50.9 - Heart failure, unspecified Status: Acute (3) HTN (hypertension): Status: Acute Plan 86-year-old gentleman presenting with acute decompensated congestive heart failure in the setting of elevated blood pressure then AFib with RVR. He also missed his diuretics for few days. He is on IV furosemide 40 mg b.i.d.. He is diuresing well. Still looks significantly volume overloaded to me. Continue the same dose of diuretics. From atrial fibrillation point of view he was on Toprol-XL 50 mg once a day. Currently he is on Cardizem drip at 5 milligram/hour. Overall heart rates are well controlled. Potentially can be transitioned to Cardizem 120 mg along with Toprol-XL. Add isosorbide 30 mg once a day. Continue diuretics. On anticoagulation with Coumadin. INR is 1.5. He has been subtherapeutic even in early December when INR was 1. If there is no affordability issues then please change him to Eliquis or Xarelto. Thank you for allowing me to participate in the care of your patient. Please feel free to contact me if you have any questions. Procedures Date of Service Date of Service: 12/21/21
--- NOTE | 2021-12-21 11:54 | P.PNIM_ITS ---
Subjective Subjective Date of Service: 12/21/21 Interval History: Patient feeling significantly better since yesterday noted to have ventricular rate in 90s this morning, denies chest pain, no palpitation, shortness of breath improved no acute events overnight. Review of Systems [employer] no headache, no dizziness CVS no chest pain, no palpitation GI no nausea, no vomiting, no abdominal pain Review of Systems: Yes all other systems are reviewed and are negative Physical Exam Vital Signs: Vital Signs: Last Vital Signs Temp 97.7 F 12/21/21 11:29 Pulse 64 12/21/21 11:29 Resp 20 12/21/21 11:29 BP 138/62 12/21/21 11:29 Pulse Ox 92 12/21/21 11:29 BMI result Body Mass Index 29.2 Const: Other: General awake aler t,in no acute dist ress. Anicteric sc lerae Neck? no JVD . CVS? irregular r ate rhythm, Respir atory lungs coarse breath sound at b ases, no use of ac cessory muscles Ga strointestinal abd omen soft, nontend er, bowel sounds a udible Extremities bilateral pitting edema, improving, mild hyperemia no warmth few dry sc abs left lower ext remity Neuro nonfo irina hard of hearin g Psych appropriat e affect Musculosk eletal no deformit y Objective Data Active Medications Acetaminophen (Acetaminophen 325 Mg Tablet) 650 mg PO Q6H PRN PRN Reason: Pain, Mild (Pain Scale 1-3) Amlodipine Besylate (Amlodipine Besylate 10 Mg Tablet) 10 mg PO DAILY [facility]; Protocol Last Admin: 12/21/21 08:34 Dose: 10 mg Documented by: JACQUE Finasteride (Finasteride 5 Mg Tablet) 5 mg PO DAILY [facility] Last Admin: 12/21/21 08:35 Dose: 5 mg Documented by: JACQUE Furosemide (Furosemide 40 Mg/4 Ml Vial) 40 mg IVPUSH BID@0900,1800 [facility]; Protocol Last Admin: 12/21/21 08:35 Dose: 40 mg Documented by: JACQUE Guaifenesin/Dextromethorphan (Guaifenesin Dm 100/10/5 Ml 5 Ml Syrup) 5 ml PO Q6H [facility] Last Admin: 12/21/21 08:35 Dose: 5 ml Documented by: JACQUE Diltiazem HCl 125 mg/ Sodium (Chloride) 125 mls @ 0 mls/hr IVCONT .Q0M [facility]; Protocol Last Titration: 12/21/21 11:03 Dose: 0 mg/hr, 0 mls/hr Documented by: JACQUE Isosorbide Mononitrate (Isosorbide Mononitrate 30 Mg Tab.Er.24h) 30 mg PO DAILY [facility]; Protocol Metoprolol Succinate (Metoprolol Succinate Er 25 Mg Tab.Er.24h) 75 mg PO DAILY [facility]; Protocol Ondansetron HCl (Ondansetron Hcl 4 Mg/2 Ml Vial) 4 mg IVPUSH Q8H PRN PRN Reason: Nausea and Vomiting Sodium Chloride (0.9 % Sodium Chloride Flush 3 Ml Syringe) 3 ml IVFLUSH QSHIFT [facility] Last Admin: 12/21/21 09:05 Dose: Not Given Documented by: JACQUE Non-Admin Reason: IV Running Warfarin Sodium (Warfarin Sodium 10 Mg Tablet) 10 mg PO Q48H [facility] Last Admin: 12/20/21 17:17 Dose: 10 mg Documented by: JACQUE Warfarin Sodium (Warfarin Sodium 5 Mg Tablet) 5 mg PO Q48H [facility] Labs CBC & Chem 7: 12/20/21 12:00 12/21/21 04:51 Labs: Laboratory Results - last 24 hr 12/20/21 12/20/21 12/20/21 12:00 12:00 12:00 MCV 97.2 MCH 30.9 MCHC 31.8 RDW 15.3 Plt Count 161 MPV 9.5 Immature Gran % (Auto) 0.3 Neut % (Auto) 85.6 H Lymph % (Auto) 5.6 L [place] % (Auto) 7.9 Eos % (Auto) 0.3 Baso % (Auto) 0.3 Lymph # (Auto) 0.4 L [place] # (Auto) 0.6 Eos # (Auto) 0.0 Baso # (Auto) 0.0 Abs Immat Gran (auto) 0.02 Absolute Neuts (auto) 6.4 Absolute Nucleated RBC 0.000 Nucleated RBC % (auto) 0.0 PT 17.5 H INR 1.5 H Anion Gap 17 Estim Creat Clear Calc 24.9 Estimated GFR 52 Random Glucose 99 Calcium 9.4 Magnesium 2.0 Total Bilirubin 0.7 Direct Bilirubin 0.3 AST 20 ALT 12 Alkaline Phosphatase 91 Troponin I High Sens B-Natriuretic Peptide Total Protein 7.8 Albumin 4.3 COVID-19 (TAMI) COVID-19 [employer] [facility] 12/20/21 12/20/21 12/21/21 12:00 12:02 04:51 MCV MCH MCHC RDW Plt Count MPV Immature Gran % (Auto) Neut % (Auto) Lymph % (Auto) [place] % (Auto) Eos % (Auto) Baso % (Auto) Lymph # (Auto) [place] # (Auto) Eos # (Auto) Baso # (Auto) Abs Immat Gran (auto) Absolute Neuts (auto) Absolute Nucleated RBC Nucleated RBC % (auto) PT INR Anion Gap 18 Estim Creat Clear Calc 27.7 Estimated GFR 59 Random Glucose 91 Calcium 9.2 Magnesium Total Bilirubin Direct Bilirubin AST ALT Alkaline Phosphatase Troponin I High Sens 41.0 H B-Natriuretic Peptide 1145 H Total Protein Albumin COVID-19 (TAMI) Negative COVID-19 [facility] See Note 12/21/21 04:51 MCV MCH MCHC RDW Plt Count MPV Immature Gran % (Auto) Neut % (Auto) Lymph % (Auto) [place] % (Auto) Eos % (Auto) Baso % (Auto) Lymph # (Auto) [place] # (Auto) Eos # (Auto) Baso # (Auto) Abs Immat Gran (auto) Absolute Neuts (auto) Absolute Nucleated RBC Nucleated RBC % (auto) PT 17.1 H INR 1.5 H Anion Gap Estim Creat Clear Calc Estimated GFR Random Glucose Calcium Magnesium Total Bilirubin Direct Bilirubin AST ALT Alkaline Phosphatase Troponin I High Sens B-Natriuretic Peptide Total Protein Albumin COVID-19 ([facility]AMI) COVID-19 [facility] Assessment and Plan (1) Atrial fibrillation with rapid ventricular response: Status: Acute (2) CHF (congestive heart failure): Status: Acute (3) HTN (hypertension): Status: Acute Plan 86-year-old gentleman with past medical history significant for hypertension, CHF with preserved EF, persistent atrial fibrillation, BPH, arthritis presented to [facility] with chief complaint of shortness of breath of 3 days duration patient skipped his dose of diuretics x2 days also noted to have low INR likely noncompliant with home medications.? Patient will be admitted to intermediate care unit for close monitoring and treatment. Acute on chronic congestive heart failure with preserved EF. CHF exacerbation likely due to noncompliance with medication/uncontrolled blood pressure Feeling better this morning, less shortness of breath, decreased leg edema, but remains fluid overload continue Lasix 40 mg IV b.i.d. Greater than 2.5 L negative Follow BMP and BNP/daily weight /i/os, continue diet Recent echocardiogram October 2021 showed EF 50-55% no evidence of regional wall motion abnormality, indeterminate diastolic function. Atrial fibrillation with RVR with history of Ch.Persistent atrial fibrillation Heart rate in 90s, will wean IV Cardizem drip continue metoprolol Cardio recommend to add Cardizem CD 1 20 mg daily, and add isosorbide 30 mg daily INR 1.5 subtherapeutic likely due to noncompliance, will discuss with director social welfare and transition to Eliquis if it is covered by insurance Uncontrolled blood pressure BP elevated on amlodipine 10 mg and metoprolol 50 mg at home, will add Cardizem CD 1 20 mg and follow BP Code status full code DVT prophylaxis on Coumadin Patient will need continued inpatient hospitalization due to acute congestive heart failure requiring IV diuretics and atrial fibrillation with RVR requiring IV Cardizem drip. Quality Stroke Does the patient have a stroke diagnosis?: No VTE Prior VTE?: No VTE Risk Level:: Medical - moderate - high VTE Device Contraindication: Treatment Not Indicated VTE Drug Contraindication: N/A - Med Ordered
[2021-12-21] MEDS: Isosorbide Mononitrate 30 MG TAB.ER.24H PO (12:45)
[2021-12-21] MEDS: Metoprolol Succinate ER 25 MG TAB.ER.24H 75 MG PO (12:45)
[2021-12-21] MEDS: Warfarin Sodium 5 MG TABLET PO (18:38)
[2021-12-22] MEDS: 0.9 % Sodium Chloride Flush 3 ML SYRINGE IVFLUSH ×3 (00:49→14:10)
[2021-12-22 03:25] VITALS: BP 145/89; PULSE 78; RESP 16; TEMP 38.1; O2SAT 91
[2021-12-22 06:16] LABS: INTERNATIONAL NORM RATIO 1.6 (0.9-1.1); Prothrombin Time 18.6 SEC (9.9-13.0)
[2021-12-22 06:17] VITALS: BMI 28.5
[2021-12-22 06:29] LABS: Anion Gap 15 (12-20); Blood Urea Nitrogen 28 mg/dL (9-16); Calcium 9.3 mg/dL (8.4-10.2); Carbon Dioxide 33 mmol/L (22-29); Chloride 98 mmol/L (96-108); Creatinine Clr Calc Pharmacy 51.8; Estimated Glomerular Filt Rate > 60; Glucose Random 91 mg/dL (60-115); Potassium 3.8 mmol/L (3.3-5.1); Sodium 142 mmol/L (135-145)
[2021-12-22 06:32] LABS: B Type Natriuretic Peptide 1228 pg/mL (<100)
[2021-12-22 07:53] VITALS: BP 153/85; PULSE 85; RESP 17; TEMP 37.7; O2SAT 92
[2021-12-22] MEDS: Furosemide 40 MG/4 ML VIAL IVPUSH (08:21)
[2021-12-22] MEDS: Finasteride 5 MG TABLET PO (08:21)
[2021-12-22] MEDS: Metoprolol Succinate ER 25 MG TAB.ER.24H 75 MG PO (08:21)
[2021-12-22] MEDS: amLODIPine Besylate 10 MG TABLET PO (08:21)
[2021-12-22] MEDS: Isosorbide Mononitrate 30 MG TAB.ER.24H PO (08:21)
--- NOTE | 2021-12-22 11:15 | PM.PNCARD ---
Subjective Subjective Date of Service: 12/22/21 Principal diagnosis: CHF, atrial fibrillation Interval history: Thierry is feeling extremely well today. Says he is not short of breath. Heart rate remained control in the upper 70s. Denies orthopnea, PND. Review of Systems Review of Systems Yes all other systems are reviewed and are negative Physical Exam Vital Signs: Last Vital Signs Temp 99.8 F 12/22/21 07:53 Pulse 85 12/22/21 07:53 Resp 17 12/22/21 07:53 BP 153/85 H 12/22/21 07:53 Pulse Ox 92 12/22/21 07:53 BMI result Body Mass Index 28.5 Const General: cooperative, comfortable, no acute distress, alert and awake Nutritional Appearance: overweight Orientation/consciousness: patient oriented x3 Neck Neck: Yes trachea midline, Yes supple and Yes no JVD Chest Chest palpation & inspection: normal inspection of the chest Resp Effort & Inspection: normal respiratory effort Auscultation: clear to auscultation bilaterally Cardio Jugular venous distension: no JVD Rate: regular rate Rhythm: abnormal rhythm irregularly irregular GI Auscultation: normal bowel sounds Neuro General: patient oriented x3 and no focal motor deficits Extrem General: Yes no clubbing, cyanosis or edema and Yes venous stasis dermatitis Objective Labs and Meds Result diagrams: 12/20/21 12:00 12/22/21 05:48 Lab results: Laboratory Results - last 24 hr 12/22/21 12/22/21 12/22/21 05:48 05:48 05:48 PT 18.6 H INR 1.6 H Sodium 142 Potassium 3.8 Chloride 98 Carbon Dioxide 33 H Anion Gap 15 BUN 28 H Creatinine 1.12 Estim Creat Clear Calc 51.8 Estimated GFR > 60 Random Glucose 91 Calcium 9.3 B-Natriuretic Peptide 1228 H Progress Note: A&P Assessment and plan (1) Acute CHF (congestive heart failure): Status: Acute Assessment and Plan: Patient is doing well from heart failure perspective. Clinically appears to be euvolemic and well compensated. Agree with switching to oral Lasix. Add Aldactone 25 mg to his regimen for heart failure as well as hypertension. Heart failure management was discussed. Importance of regular diuretic use as well as avoidance of salt loading was discussed with him in details. He shows understanding and agreement. Probably plan for discharge for tomorrow. Follow-up will be in the office in 2 weeks time. Will sign of the case today (2) Persistent atrial fibrillation: Status: Acute Assessment and Plan: Persistent rate control atrial fibrillation. Has failed rhythm control approach despite being on amiodarone therapy. He has had lack of follow-up as outpatient. Continue current rate control regimen. Rate is optimally control at this point time. Continue full oral anticoagulation, currently on warfarin therapy. Target INR between 2 and 3. Will follow with him as an outpatient. Fall Risk Details Current Medications: Current Medications Acetaminophen (Acetaminophen 325 Mg Tablet) 650 mg PO Q6H PRN PRN Reason: Pain, Mild (Pain Scale 1-3) Amlodipine Besylate (Amlodipine Besylate 10 Mg Tablet) 10 mg PO DAILY [facility]; Protocol Last Admin: 12/22/21 08:21 Dose: 10 mg Documented by: Finasteride (Finasteride 5 Mg Tablet) 5 mg PO DAILY [facility] Last Admin: 12/22/21 08:21 Dose: 5 mg Documented by: Furosemide (Furosemide 40 Mg/4 Ml Vial) 40 mg IVPUSH BID@0900,1800 [facility]; Protocol Last Admin: 12/22/21 08:21 Dose: 40 mg Documented by: Guaifenesin/Dextromethorphan (Guaifenesin Dm 100/10/5 Ml 5 Ml Syrup) 5 ml PO Q6H [facility] Last Admin: 12/22/21 08:21 Dose: Not Given Documented by: Isosorbide Mononitrate (Isosorbide Mononitrate 30 Mg Tab.Er.24h) 30 mg PO DAILY [facility]; Protocol Last Admin: 12/22/21 08:21 Dose: 30 mg Documented by: Metoprolol Succinate (Metoprolol Succinate Er 25 Mg Tab.Er.24h) 75 mg PO DAILY [facility]; Protocol Last Admin: 12/22/21 08:21 Dose: 75 mg Documented by: Ondansetron HCl (Ondansetron Hcl 4 Mg/2 Ml Vial) 4 mg IVPUSH Q8H PRN PRN Reason: Nausea and Vomiting Sodium Chloride (0.9 % Sodium Chloride Flush 3 Ml Syringe) 3 ml IVFLUSH QSHIFT [facility] Last Admin: 12/22/21 08:21 Dose: 3 ml Documented by: Warfarin Sodium (Warfarin Sodium 10 Mg Tablet) 10 mg PO Q48H [facility] Last Admin: 12/20/21 17:17 Dose: 10 mg Documented by: Warfarin Sodium (Warfarin Sodium 5 Mg Tablet) 5 mg PO Q48H [facility] Last Admin: 12/21/21 18:38 Dose: 5 mg Documented by: Time Spent With Patient Time: Total time spent is greater than 50% in coordination of care (as documented) at patient's floor/unit and/or counseling patient: Progress Note: Quality Stroke Does the patient have a stroke diagnosis?: No Procedures Date of Service Date of Service: 12/22/21
[2021-12-22 11:21] VITALS: BP 144/80; PULSE 89; RESP 18; TEMP 36.3; O2SAT 92
--- NOTE | 2021-12-22 12:03 | HO.PM.IMPN ---
Subjective Subjective Date of Service: 12/22/21 Interval History: Feeling better this morning denies chest pain, no shortness of breath, no cough, not happy about food, did not receive dinner last night, and did not get the breakfast he ordered this morning, otherwise no other acute issues overnight. Review of Systems [employer] no headache, no dizziness CVS no chest pain, no palpitation GI no nausea, no vomiting, no abdominal pain Review of Systems: Yes all other systems are reviewed and are negative Physical Exam Vital Signs: Vital Signs: Last Vital Signs Temp 97.4 F 12/22/21 11:21 Pulse 89 12/22/21 11:21 Resp 18 12/22/21 11:21 BP 144/80 H 12/22/21 11:21 Pulse Ox 92 12/22/21 11:21 BMI result Body Mass Index 28.5 Const: Other: General awake alert,in no acute distress. Neck? no JVD. CVS? irregular rate rhythm, Respiratory lungs clear, no use of accessory muscles Gastrointestinal abdomen soft, nontender, bowel sounds audible Extremities bilateral pitting edema improving, no warmth few dry scabs left lower extremity Neuro nonfocal hard of hearing Psych appropriate affect Musculoskeletal no deformity Objective Data Active Medications Acetaminophen (Acetaminophen 325 Mg Tablet) 650 mg PO Q6H PRN PRN Reason: Pain, Mild (Pain Scale 1-3) Amlodipine Besylate (Amlodipine Besylate 10 Mg Tablet) 10 mg PO DAILY [facility], [facility]; Protocol Last Admin: 12/22/21 08:21 Dose: 10 mg Documented by: TONYA Finasteride (Finasteride 5 Mg Tablet) 5 mg PO DAILY [facility] Last Admin: 12/22/21 08:21 Dose: 5 mg Documented by: TONYA Furosemide (Furosemide 40 Mg/4 Ml Vial) 40 mg IVPUSH BID@0900,1800 [facility], [facility]; Protocol Last Admin: 12/22/21 08:21 Dose: 40 mg Documented by: TONYA Guaifenesin/Dextromethorphan (Guaifenesin Dm 100/10/5 Ml 5 Ml Syrup) 5 ml PO Q6H [facility], [facility]1983 Last Admin: 12/22/21 08:21 Dose: Not Given Documented by: TONYA Non-Admin Reason: Patient Refused Isosorbide Mononitrate (Isosorbide Mononitrate 30 Mg Tab.Er.24h) 30 mg PO DAILY [facility], [facility]; Protocol Last Admin: 12/22/21 08:21 Dose: 30 mg Documented by: TONYA Metoprolol Succinate (Metoprolol Succinate Er 25 Mg Tab.Er.24h) 75 mg PO DAILY [facility], [facility]; Protocol Last Admin: 12/22/21 08:21 Dose: 75 mg Documented by: TONYA Ondansetron HCl (Ondansetron Hcl 4 Mg/2 Ml Vial) 4 mg IVPUSH Q8H PRN PRN Reason: Nausea and Vomiting Sodium Chloride (0.9 % Sodium Chloride Flush 3 Ml Syringe) 3 ml IVFLUSH QSHIFT [facility] Last Admin: 12/22/21 08:21 Dose: 3 ml Documented by: TONYA Warfarin Sodium (Warfarin Sodium 10 Mg Tablet) 10 mg PO Q48H [facility] Last Admin: 12/20/21 17:17 Dose: 10 mg Documented by: PAOLO-PATSY Warfarin Sodium (Warfarin Sodium 5 Mg Tablet) 5 mg PO Q48H [facility] Last Admin: 12/21/21 18:38 Dose: 5 mg Documented by: JACQUE Labs CBC & Chem 7: 12/20/21 12:00 12/22/21 05:48 Labs: Laboratory Results - last 24 hr 12/22/21 12/22/21 12/22/21 05:48 05:48 05:48 PT 18.6 H INR 1.6 H Anion Gap 15 Estim Creat Clear Calc 51.8 Estimated GFR > 60 Random Glucose 91 Calcium 9.3 B-Natriuretic Peptide 1228 H Assessment and Plan (1) Atrial fibrillation with rapid ventricular response: Status: Acute (2) CHF (congestive heart failure): Status: Acute (3) HTN (hypertension): Status: Acute Plan 86-year-old gentleman with past medical history significant for hypertension, CHF with preserved EF, persistent atrial fibrillation, BPH, arthritis presented to [facility] with chief complaint of shortness of breath of 3 days duration patient skipped his dose of diuretics x2 days also noted to have low INR likely noncompliant with home medications.? Patient will be admitted to intermediate care unit for close monitoring and treatment. Acute on chronic congestive heart failure with preserved EF. CHF exacerbation likely due to noncompliance with medication/uncontrolled blood pressure Feeling better this morning, no shortness of breath, decreased leg edema, appears euvolemic, BNP worsened but patient clinically stable, stable BMP On IV Lasix 40 mg b.i.d. will transition to by mouth Lasix 40mg /d and add Aldactone 25 mg daily as per cardio recommendation Greater than 4 L negative,follow I/Os Recent echocardiogram October 2021 showed EF 50-55% no evidence of regional wall motion abnormality, indeterminate diastolic function. Strongly recommend compliance with home medication outpatient follow-up with Cardiology in 2 weeks Atrial fibrillation with RVR with history of Ch.Persistent atrial fibrillation Heart rate improved,s/p IV Cardizem drip , continue metoprolol will increase dose to 100 mg for better heart rate control INR 1.6 subtherapeutic likely due to noncompliance, checked insurance for Erma he has a 40 dollar co-pay which patient is not able to pay therefore will continue Coumadin Will increase dose of Coumadin to 7.5 mg alternating with 10 mg Uncontrolled blood pressure BP improved will change amlodipine to 5 mg, increase dose of metoprolol to 100mg (home dose metoprolol 50 mg) Isordil 30 mg added by Cardiology, follow BP closely Code status full code DVT prophylaxis on Coumadin Patient will need continued inpatient hospitalization due to acute congestive heart failure/ atrial fibrillation with RVR requiring medication adjustment need 24 hour tele monitoring. Quality Stroke Does the patient have a stroke diagnosis?: No VTE Prior VTE?: No VTE Risk Level:: Medical - moderate - high VTE Device Contraindication: Treatment Not Indicated VTE Drug Contraindication: N/A - Med Ordered
[2021-12-22] MEDS: Warfarin Sodium 10 MG TABLET PO (14:06)
[2021-12-22] MEDS: Spironolactone 25 MG TABLET PO (14:10)
[2021-12-22 15:22] VITALS: BP 116/61; PULSE 86; RESP 17; TEMP 36.6; O2SAT 90
[2021-12-22 19:17] VITALS: BP 122/73; PULSE 79; RESP 17; TEMP 36.2; O2SAT 94
[2021-12-22 23:33] VITALS: BP 139/74; PULSE 75; RESP 16; TEMP 36.8; O2SAT 94
[2021-12-23 03:51] VITALS: BP 149/97; PULSE 80; RESP 16; TEMP 36.9; O2SAT 94
[2021-12-23 06:00] VITALS: BMI 28.3
[2021-12-23 06:57] LABS: INTERNATIONAL NORM RATIO 1.6 (0.9-1.1); Prothrombin Time 18.7 SEC (9.9-13.0)
[2021-12-23 06:58] VITALS: BP 140/80; PULSE 95; RESP 18; TEMP 36.1; O2SAT 92
[2021-12-23 07:35] LABS: Anion Gap 12 (12-20); Blood Urea Nitrogen 34 mg/dL (9-16); Calcium 8.9 mg/dL (8.4-10.2); Carbon Dioxide 34 mmol/L (22-29); Chloride 100 mmol/L (96-108); Creatinine Clr Calc Pharmacy 48.7; Estimated Glomerular Filt Rate 58; Glucose Random 83 mg/dL (60-115); Potassium 3.6 mmol/L (3.3-5.1); Sodium 142 mmol/L (135-145)
--- NOTE | 2021-12-23 09:08 | HO.PM.IMPN ---
Subjective Subjective Date of Service: 12/23/21 Interval History: chf ,low inr Physical Exam Vital Signs: Vital Signs: Last Vital Signs Temp 97 F 12/23/21 06:58 Pulse 95 12/23/21 06:58 Resp 18 12/23/21 06:58 BP 140/80 H 12/23/21 06:58 Pulse Ox 92 12/23/21 06:58 BMI result Body Mass Index 28.3 Objective Data Active Medications Acetaminophen (Acetaminophen 325 Mg Tablet) 650 mg PO Q6H PRN PRN Reason: Pain, Mild (Pain Scale 1-3) Amlodipine Besylate (Amlodipine Besylate 5 Mg Tablet) 5 mg PO DAILY [facility]; Protocol Finasteride (Finasteride 5 Mg Tablet) 5 mg PO DAILY [facility] Last Admin: 12/22/21 08:21 Dose: 5 mg Documented by: TONYA Furosemide (Furosemide 40 Mg Tablet) 40 mg PO DAILY [facility]; Protocol Guaifenesin/Dextromethorphan (Guaifenesin Dm 100/10/5 Ml 5 Ml Syrup) 5 ml PO Q6H [facility] Last Admin: 12/23/21 02:19 Dose: Not Given Documented by: JOHNATHON Non-Admin Reason: Patient Asleep Isosorbide Mononitrate (Isosorbide Mononitrate 30 Mg Tab.Er.24h) 30 mg PO DAILY [facility]; Protocol Last Admin: 12/22/21 08:21 Dose: 30 mg Documented by: TONYA Metoprolol Succinate (Metoprolol Succinate Er 100 Mg Tab.Er.24h) 100 mg PO DAILY [facility]; Protocol Ondansetron HCl (Ondansetron Hcl 4 Mg/2 Ml Vial) 4 mg IVPUSH Q8H PRN PRN Reason: Nausea and Vomiting Sodium Chloride (0.9 % Sodium Chloride Flush 3 Ml Syringe) 3 ml IVFLUSH QSHIFT [facility] Last Admin: 12/22/21 21:04 Dose: Not Given Documented by: JOHNATHON Non-Admin Reason: Previously Administered Spironolactone (Spironolactone 25 Mg Tablet) 25 mg PO DAILY [facility]; Protocol Last Admin: 12/22/21 14:10 Dose: 25 mg Documented by: TONYA Warfarin Sodium (Warfarin Sodium 10 Mg Tablet) 10 mg PO DAILY@1800 [facility] Labs CBC & Chem 7: 12/20/21 12:00 12/23/21 06:08 Labs: Laboratory Results - last 24 hr 12/23/21 12/23/21 06:08 06:08 PT 18.7 H INR 1.6 H Anion Gap 12 Estim Creat Clear Calc 48.7 Estimated GFR 58 Random Glucose 83 Calcium 8.9 Assessment and Plan (1) Atrial fibrillation with rapid ventricular response: Status: Acute (2) CHF (congestive heart failure): Status: Acute (3) HTN (hypertension): Status: Acute Plan 86-year-old gentleman with past medical history significant for hypertension, CHF with preserved EF, persistent atrial fibrillation, BPH, arthritis presented to [facility] with chief complaint of shortness of breath of 3 days duration patient skipped his dose of diuretics x2 days also noted to have low INR likely noncompliant with home medications.? Patient will be admitted to intermediate care unit for close monitoring and treatment. Acute on chronic congestive heart failure with preserved EF. CHF exacerbation likely due to noncompliance with medication/uncontrolled blood pressure Feeling better this morning, no shortness of breath, decreased leg edema, appears euvolemic, BNP worsened but patient clinically stable, stable BMP On IV Lasix 40 mg b.i.d. will transition to by mouth Lasix 40mg /d and add Aldactone 25 mg daily as per cardio recommendation Greater than 4 L negative,follow I/Os Recent echocardiogram October 2021 showed EF 50-55% no evidence of regional wall motion abnormality, indeterminate diastolic function. Strongly recommend compliance with home medication outpatient follow-up with Cardiology in 2 weeks Atrial fibrillation with RVR with history of Ch.Persistent atrial fibrillation Heart rate improved,s/p IV Cardizem drip , continue metoprolol will increase dose to 100 mg for better heart rate control INR 1.6 subtherapeutic likely due to noncompliance, checked insurance for Erma he has a 40 dollar co-pay which patient is not able to pay therefore will continue Coumadin Will increase dose of Coumadin to 7.5 mg alternating with 10 mg Uncontrolled blood pressure BP improved will change amlodipine to 5 mg, increase dose of metoprolol to 100mg (home dose metoprolol 50 mg) Isordil 30 mg added by Cardiology, follow BP closely Code status full code DVT prophylaxis on Coumadin Patient will need continued inpatient hospitalization due to acute congestive heart failure/ atrial fibrillation with RVR requiring medication adjustment need 24 hour tele monitoring. Quality Stroke Does the patient have a stroke diagnosis?: No VTE Prior VTE?: No VTE Risk Level:: Medical - moderate - high VTE Device Contraindication: Treatment Not Indicated VTE Drug Contraindication: N/A - Med Ordered
[2021-12-23] MEDS: Spironolactone 25 MG TABLET PO (10:08)
[2021-12-23] MEDS: amLODIPine Besylate 5 MG TABLET PO (10:08)
[2021-12-23] MEDS: guaiFENesin DM 100/10/5 ML 5 ML SYRUP PO (10:08)
[2021-12-23] MEDS: 0.9 % Sodium Chloride Flush 3 ML SYRINGE IVFLUSH (10:08)
[2021-12-23] MEDS: Isosorbide Mononitrate 30 MG TAB.ER.24H PO (10:09)
[2021-12-23] MEDS: Furosemide 40 MG TABLET PO (10:09)
[2021-12-23] MEDS: Finasteride 5 MG TABLET PO (10:09)
[2021-12-23] MEDS: Metoprolol Succinate ER 100 MG TAB.ER.24H PO (10:09)
[2021-12-23 11:00] VITALS: BP 128/68; PULSE 73; RESP 18; TEMP 36.1; O2SAT 97
--- NOTE | 2021-12-23 11:07 | P.DS_ITS ---
DS: Providers Provider Date of Service: 12/23/21 Date of admission: 12/20/21 13:37 Primary care physician: Marcos Maurer MD Consults: 12/20/21 14:45 Consult to Cardiology Routine Consulting Provider: Raj Mendez Reason for consultation: chf/atfib Has provider been notified: No DS: Diagnosis Discharge Diagnosis (1) Atrial fibrillation with rapid ventricular response: Status: Acute (2) CHF (congestive heart failure): Status: Acute (3) HTN (hypertension): Status: Acute DS: Summary Hospital Course Hospital Course: ?86-year-old male with a past medical history of hypertension, CHF, AFib, BPH, arthritis presented to the hospital with a chief complaint of shortness of breath. patient reports that over the past couple days he has been having shortness of breath which has been gradually worsening; has dyspnea on exertion.? Denies any chest pain or palpitations.? Denies any fever chills cough.? Reports he has been complaint with his home medications.? Denies any GI symptoms.? Review of all other systems is negative except mentioned above ER course: Per ER team patient on presentation noted to be desaturating to 88% of on ambulation; chest x-ray showed pleural effusion; CT chest showed ground-glass opacities, cardiomegaly, small to moderate right-sided effusion.? Patient was reportedly positive for COVID-19 on 09/21/2016.? Currently afebrile.? No cough.? Findings concerning for acute CHF.? Given Lasix.? Admitted for further management.? EKG was nonischemic. Hospital course: 86-year-old gentleman with past medical history significant for hypertension, CHF with preserved EF, persistent atrial fibrillation, BPH, arthritis presented to [facility] with chief complaint of shortness of breath of 3 days duration patient skipped his dose of diuretics x2 days also noted to have low INR likely noncompliant with home medications.? Patient will be admitted to intermediate care unit for close monitoring and treatment. Acute on chronic congestive heart failure with preserved EF-CHF exacerbation likely due to noncompliance with medication/uncontrolled blood pressure. started on IV Lasix - echo was done recently echocardiogram October 2021 showed EF 50-55% no evidence of regional wall motion abnormality, indeterminate diastolic function. switched to p.o. Lasix as well as added Aldactone. I&O -4 L at least. CHF education given Strongly recommend compliance with home medication outpatient follow-up with Cardiology in 2 weeks Atrial fibrillation with RVR with history of Ch.Persistent atrial fibrillation Heart rate improved,s/p IV Cardizem drip , adjusted metoprolol 100 mg daily, heart rate is seems better control now. INR 1.6 subtherapeutic likely due to noncompliance, Warfarin adjusted to 10 mg daily currently, monitor INR closely outpatient with PCP -further management outpatient. Above management discussed with the patient in detail length he understand and in agreement with the above plan, time spent 50 minutes and 50% time spent on counseling. Significant findings: As above. Procedures performed: None. Treatment and response: As above. Complications: None. Time Spent with Patient Time attestation: Total time spent providing and/or coordinating discharge services: Discharge coordination time: Greater than 30 minutes Quality: Safe Use of Opioids Does Pt have an Active Cancer Diagnosis on the Problem List?: No Quality: Stroke Does the patient have a stroke diagnosis?: No Physical Exam Vital Signs: Vital Signs: Last Vital Signs Temp 97 F 12/23/21 11:00 Pulse 73 12/23/21 11:00 Resp 18 12/23/21 11:00 BP 128/68 12/23/21 11:00 Pulse Ox 97 12/23/21 11:00 BMI result Body Mass Index 28.3 Appearance: Alert.? Oriented X3.? not in distress.? Eyes: Pupils equal, round and reactive to light.? Sclera nonicteric.? ENT: Pharynx normal.? Moist mucous membranes. cvs:irregular rythem, [id number] . res: clear to auscultation ,no rhonchii or wheezing abd: no rebound or guarding ,nt, bs present. ext pulses present , no cyanosis. neuro: axo3 , nonfocal. DS: Data Data Completed and Pending Labs on day of discharge: Laboratory Results - last 24 hr 12/23/21 12/23/21 06:08 06:08 PT 18.7 H INR 1.6 H Sodium 142 Potassium 3.6 Chloride 100 Carbon Dioxide 34 H Anion Gap 12 BUN 34 H Creatinine 1.19 Estim Creat Clear Calc 48.7 Estimated GFR 58 Random Glucose 83 Calcium 8.9 Additional Comments Additional comments: ?XR/XR chest 1V IMPRESSION: Right base density likely related to atelectasis and layering of pleural effusion. Discharge Plan Discharge Patient Disposition: Home, Self-Care Discharge Diagnosis: Acute on chronic congestive heart failure with preserved EF Atrial fibrillation with RVR with history of chronic persistent atrial fibrillation Uncontrolled blood pressure Referrals: Marcos Maurer MD [Primary Care Provider] - 1 Week Discharge Medications: New furosemide 40 mg Tablet 40 mg PO DAILY Qty: 30 0RF Protocol: Hold for SBP< HOLD for SBP < : 90 isosorbide mononitrate 30 mg Tablet Extended Release 24 Hr 30 mg PO DAILY Qty: 30 0RF Protocol: Hold for SBP< HOLD for SBP < : 90 metoprolol succinate 100 mg Tablet Extended Release 24 Hr 100 mg PO DAILY Qty: 100 0RF Protocol: Hold for SBP/HR < HOLD for SBP < : 90 HOLD for HR < : 60 amlodipine 5 mg Tablet 5 mg PO DAILY Qty: 30 0RF Protocol: Hold for SBP< HOLD for SBP < : 90 spironolactone 25 mg Tablet 25 mg PO DAILY Qty: 30 0RF Protocol: Hold for SBP< HOLD for SBP < : 90 warfarin 10 mg tablet 5 mg PO DAILY Qty: 30 0RF Continued betamethasone dipropionate 0.05 % lotion 1 appl topical BID 0RF chlorhexidine gluconate 0.12 % mouthwash 1 appl PO BID 0RF finasteride 5 mg tablet 5 mg PO DAILY 0RF Discontinued metoprolol succinate 50 mg tablet extended release 24 hr 50 mg PO DAILY 90 Days Qty: 90 0RF warfarin [Jantoven] 5 mg tablet 10 mg PO Q48H 0RF furosemide 20 mg tablet 20 mg PO DAILY PRN (Reason: edema/weight gain) Qty: 60 0RF amlodipine 10 mg tablet 10 mg PO DAILY Qty: 90 0RF doxycycline hyclate 100 mg capsule 1 cap PO BID 0RF prednisone 20 mg tablet 1 tab PO DAILY 0RF warfarin 5 mg tablet 5 mg PO Q48H 0RF Discharge Orders: Discharge Order (Routine); Ordered 12/23/21 Ordered By: Jacque English Diet: low salt diet Activity on Discharge: As tolerated Stand Alone Forms: Patient Portal Discharge page Other Ambulatory Orders: Basic Metabolic Panel (Routine) Timeframe: 1 Week Facility: [facility] - Location: Laboratory Ordered By: Jacque English Prothrombin Time INR (Routine) Timeframe: 2 Days Facility: [facility] - Location: Laboratory Ordered By: Jacque English Care Plan Goals: Acute congestive heart failure improved take Lasix 40 mg daily and Aldactone 25 mg daily follow low-salt diet call PCP with chest pain worsening shortness of breath or leg edema. inr suntherapeutic , warfarin adjusted to 10 mg daily please check renal function/electorlytes /PT-inr with pcp. Health Concerns: Take all home medications as prescribed follow PT INR INR goal 2-3 Plan of Treatment: Outpatient follow-up with Cardiology Dr. White in 2 weeks Assessment: As per discharge summary
--- NOTE | 2021-12-23 12:22 | MHC.CM.PN ---
Patient has been medically cleared for dc to home today, self care. Last IMM addressed on 12/21/21.
== END 2021-12-23 12:09 | disposition home or self-care (01) | DRG 291 ==
LOC: HO.ED 13:05 → HO.EDOVER 13:45 → HO.IMC 14:24
PROVIDERS: Admitting Provider Hospitalist; Emergency Provider Emergency Medicine; PCP Internal Medicine; Visit Provider Internal Medicine
DX: I11.0 Hypertensive heart disease with heart failure (principal); I50.33 Acute on chronic diastolic (congestive) heart failure; J96.01 Acute respiratory failure with hypoxia; I48.19 Other persistent atrial fibrillation; M19.90 Unspecified osteoarthritis, unspecified site; R79.1 Abnormal coagulation profile; N40.0 Benign prostatic hyperplasia without lower urinary tract symptoms; I45.10 Unspecified right bundle-branch block; Z91.14 Patient's other noncompliance with medication regimen; Z20.822 Contact with and (suspected) exposure to COVID-19; Z96.641 Presence of right artificial hip joint; Z86.010 Personal history of colon polyps; Z79.01 Long term (current) use of anticoagulants; Z79.899 Other long term (current) drug therapy
CPT/HCPCS: 36415; 71045; 80048; 80076; 83735; 83880; 84484; 85025; 85610; 87635; 93005; 96365; 96375; 99284; 99291; J1940

== ENCOUNTER → 2021-12-30 14:42 | Outpatient (BNVA) | payer OTHER, SELFPAY | PROVIDERS: PCP Internal Medicine; Referring Provider Internal Medicine; Visit Provider Nurse Practitioner Family | DX: I11.0 Hypertensive heart disease with heart failure (principal); I50.30 Unspecified diastolic (congestive) heart failure; I48.19 Other persistent atrial fibrillation | CPT/HCPCS: 93005; 99212 ==

== ENCOUNTER 2022-01-28 09:59 | Outpatient (REF) | payer OTHER, SELFPAY ==
[2022-01-28 11:53] LABS: Anion Gap 15 (12-20); Blood Urea Nitrogen 25 mg/dL (9-16); Calcium 9.4 mg/dL (8.4-10.2); Carbon Dioxide 25 mmol/L (22-29); Chloride 102 mmol/L (96-108); Estimated Glomerular Filt Rate 59; Glucose Random 85 mg/dL (60-115); Potassium 4.4 mmol/L (3.3-5.1); Sodium 138 mmol/L (135-145)
== END 2022-01-28 10:00 | disposition home or self-care (01) ==
LOC: HO.10HDL 09:59
PROVIDERS: Visit Provider Student in an Organized Health Care Education/Training Program
DX: I50.33 Acute on chronic diastolic (congestive) heart failure (principal)
CPT/HCPCS: 36415; 80048

== ENCOUNTER 2022-02-03 10:03 | Outpatient (REF) | payer OTHER, SELFPAY ==
[2022-02-03 10:54] LABS: INTERNATIONAL NORM RATIO 4.2 (0.9-1.1); Prothrombin Time 49.5 SEC (9.9-13.0)
[2022-02-03 11:04] LABS: Anion Gap 14 (12-20); Blood Urea Nitrogen 18 mg/dL (9-16); Calcium 9.5 mg/dL (8.4-10.2); Carbon Dioxide 27 mmol/L (22-29); Chloride 103 mmol/L (96-108); Estimated Glomerular Filt Rate > 60; Glucose Random 90 mg/dL (60-115); Potassium 4.4 mmol/L (3.3-5.1); Sodium 140 mmol/L (135-145)
== END 2022-02-03 10:04 | disposition home or self-care (01) ==
LOC: HO.LAB 10:03
PROVIDERS: PCP Internal Medicine; Visit Provider Internal Medicine
DX: I48.91 Unspecified atrial fibrillation (principal); I10 Essential (primary) hypertension
CPT/HCPCS: 36415; 80048; 85610

== ENCOUNTER 2022-02-11 11:12 | Outpatient (REF) | payer OTHER, SELFPAY ==
[2022-02-11 13:12] LABS: INTERNATIONAL NORM RATIO 1.5 (0.9-1.1); Prothrombin Time 17.5 SEC (9.9-13.0)
== END 2022-02-11 11:13 | disposition home or self-care (01) ==
LOC: HO.10HDL 11:12
PROVIDERS: Visit Provider Internal Medicine
DX: I48.91 Unspecified atrial fibrillation (principal); Z79.01 Long term (current) use of anticoagulants
CPT/HCPCS: 36415; 85610

== ENCOUNTER 2022-03-04 10:46 | Outpatient (REF) | payer OTHER, SELFPAY ==
[2022-03-04 13:45] LABS: INTERNATIONAL NORM RATIO 1.9 (0.9-1.1); Prothrombin Time 21.8 SEC (10.0-13.1)
== END 2022-03-04 10:47 | disposition home or self-care (01) ==
LOC: HO.10HDL 10:46
PROVIDERS: Visit Provider Internal Medicine
DX: I48.91 Unspecified atrial fibrillation (principal)
CPT/HCPCS: 36415; 85610

== ENCOUNTER 2022-03-26 12:28 | Outpatient (REF) | payer MEDICARE, SELFPAY ==
[2022-03-26 13:29] LABS: INTERNATIONAL NORM RATIO 1.4 (0.9-1.1); Prothrombin Time 16.2 SEC (10.0-13.1)
== END 2022-03-26 12:29 | disposition home or self-care (01) ==
LOC: HO.10HDLR 12:28
PROVIDERS: Visit Provider Internal Medicine
DX: I48.91 Unspecified atrial fibrillation (principal)
CPT/HCPCS: 36415; 85610

== ENCOUNTER 2022-03-30 15:19 | Outpatient (REF) | payer MEDICARE, BC, SELFPAY ==
--- NOTE | ~2022-03-30 | XR_ITS ---
EXAMINATION: XR HIP, LEFT WITH PELVIS. CLINICAL INFORMATION: Left hip pain. COMPARISON: None. TECHNIQUE: 2 views of the left hip and pelvis. 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 SI joints are symmetric and normal. There is a penile prosthesis present. LEFT HIP: There is a total left hip prosthesis with prosthetic components in satisfactory alignment. No bony abnormality seen. The soft tissues are normal. 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 No periprostatic fracture or loosening seen in either hips especially the left hip.
== END 2022-03-30 15:20 | disposition home or self-care (01) ==
LOC: HO.HOSX 15:19
PROVIDERS: Visit Provider Physician Assistant
DX: M54.32 Sciatica, left side (principal)
CPT/HCPCS: 73502; 99212

== ENCOUNTER → 2022-03-31 13:53 | Outpatient (BNVA) | payer MEDICARE, BC, SELFPAY | PROVIDERS: PCP Internal Medicine; Referring Provider Internal Medicine; Visit Provider Internal Medicine Cardiovascular Disease | DX: I50.30 Unspecified diastolic (congestive) heart failure (principal); I48.19 Other persistent atrial fibrillation | CPT/HCPCS: 99212 ==

== ENCOUNTER 2022-04-03 10:50 | Outpatient (REF) | payer MEDICARE, SELFPAY ==
[2022-04-03 13:43] LABS: INTERNATIONAL NORM RATIO 1.8 (0.9-1.1); Prothrombin Time 21.2 SEC (10.0-13.1)
== END 2022-04-03 10:51 | disposition home or self-care (01) ==
LOC: HO.10HDL 10:50
PROVIDERS: Visit Provider Internal Medicine
DX: I48.91 Unspecified atrial fibrillation (principal)
CPT/HCPCS: 36415; 85610

== ENCOUNTER → 2022-04-17 11:25 | Outpatient (BNVA) | payer MEDICARE, SELFPAY | PROVIDERS: PCP Internal Medicine; Visit Provider Internal Medicine | DX: M54.50 Low back pain, unspecified (principal) | CPT/HCPCS: 99202 ==

== ENCOUNTER 2022-04-20 11:13 | Outpatient (REF) | payer MEDICARE, SELFPAY ==
[2022-04-20 13:35] LABS: INTERNATIONAL NORM RATIO 1.2 (0.9-1.1); Prothrombin Time 13.8 SEC (10.0-13.1)
== END 2022-04-20 11:14 | disposition home or self-care (01) ==
LOC: HO.10HDL 11:13
PROVIDERS: Visit Provider Internal Medicine
DX: I48.91 Unspecified atrial fibrillation (principal)
CPT/HCPCS: 36415; 85610

== ENCOUNTER 2022-04-28 11:07 | Outpatient (REF) | payer MEDICARE, SELFPAY ==
[2022-04-28 13:40] LABS: MANUAL DIFF FLAG NO
[2022-04-28 13:46] LABS: Basophils Percent Auto 0.4 % (0-2); Eosinophils Absolute Auto 0.1 X10*3/uL (0.0-0.4); Eosinophils Percent Auto 2.2 % (0-4); Hematocrit 39.8 % (42.0-52.0); Hemoglobin 13.4 g/dl (14.0-18.0); Imm Gran Abs Auto 0.02 X10*3/uL (0.00-0.03); Imm Gran Pct Auto 0.4 % (0.0-0.4); Lymphocytes Absolute Auto 0.7 X10*3/uL (1.2-4.9); Lymphocytes Percent Auto 13.4 % (20-40); Mean Corpuscular HGB Conc 33.7 g/dl (31.0-36.0); Mean Corpuscular Hemoglobin 32.4 pg (27.0-33.0); Mean Corpuscular Volume 96.1 fL (80.0-98.0); Mean Platelet Volume 10.8 fL (9.4-12.4); Monocytes Absolute Auto 0.7 X10*3/uL (0.1-1.2); Monocytes Percent Auto 12.1 % (2-11); Neutrophils Absolute Auto 3.9 x10*3/uL (2.0-8.3); Neutrophils Percent Auto 71.5 % (45-73); Platelet Count 176 X10*3/uL (160-400); Red Blood Count 4.14 X10*6/uL (4.60-5.80); Red Cell Distribution Width 13.7 % (11.0-16.0); White Blood Count 5.4 X10*3/uL (4.8-10.8)
[2022-04-28 13:49] LABS: INTERNATIONAL NORM RATIO 3.5 (0.9-1.1); Prothrombin Time 42.9 SEC (10.0-13.1)
[2022-04-28 14:05] LABS: Alanine Aminotransferase 8 U/L (0-40); Albumin Level 4.2 g/dL (3.5-5.0); Alkaline Phosphatase 69 U/L (39-117); Anion Gap 15 (12-20); Aspartate Amino Transferase 16 U/L (5-37); Bilirubin Total 0.4 mg/dL (0.0-1.0); Blood Urea Nitrogen 21 mg/dL (9-16); Calcium 9.2 mg/dL (8.4-10.2); Carbon Dioxide 28 mmol/L (22-29); Chloride 100 mmol/L (96-108); Cholesterol 190 mg/dL; Estimated Glomerular Filt Rate > 60; Glucose Fasting 87 mg/dL (60-99); HDL Cholesterol 61 mg/dL; LDL Cholesterol Calculated 118 mg/dl; Potassium 4.3 mmol/L (3.3-5.1); Sodium 139 mmol/L (135-145); Total Protein 7.1 g/dL (6.5-8.0); Triglycerides 57 mg/dL
[2022-04-28 14:25] LABS: Prostate Specific Antigen Scr 2.31 ng/mL (<0.05-4.0)
== END 2022-04-28 11:08 | disposition home or self-care (01) ==
LOC: HO.10HDLR 11:07
PROVIDERS: Visit Provider Internal Medicine
DX: Z12.5 Encounter for screening for malignant neoplasm of prostate (principal); I48.91 Unspecified atrial fibrillation; I10 Essential (primary) hypertension; N40.0 Benign prostatic hyperplasia without lower urinary tract symptoms
CPT/HCPCS: 36415; 80053; 80061; 84153; 85025; 85610

== ENCOUNTER 2022-05-04 10:38 | Outpatient (REF) | payer SELFPAY | END 2022-05-04 10:39 | disposition home or self-care (01) | LOC: HO.HAP 10:38 | PROVIDERS: Visit Provider Internal Medicine | DX: Z46.1 Encounter for fitting and adjustment of hearing aid (principal); H90.3 Sensorineural hearing loss, bilateral | CPT/HCPCS: 99499 ==

== ENCOUNTER 2022-05-25 20:53 | Emergency (ER) | payer MEDICARE, SELFPAY ==
[2022-05-25 21:26] VITALS: BP 120/70; PULSE 75; RESP 17; TEMP 36.9; O2SAT 95; BMI 28.3
--- NOTE | 2022-05-25 21:32 | ED.GENADULT ---
HPI - General Adult General Chief complaint: Fall Stated complaint: fall Time Seen by Provider: 05/25/22 21:32 Source: patient Limitations: no limitations History of Present Illness HPI narrative: This is an 87-year-old male who lives at home by himself. There are stairs in his residence but he does have a chair lift. He sometimes uses a cane to help steady himself. Patient had a mechanical fall this evening where he tripped or slipped and fell. He had trouble getting up from the floor to a chair and called his daughter who was able to get him up. EMS was called and the patient debated whether he needed to come to the hospital. The patient states he was ambulating normally earlier today and even this evening around dinner time. He denies any injury. He denies hitting his head, having any neck pain, chest pain, shortness of breath, abdominal pain, extremity pain or injury. He Is on warfarin. He states he was conscious the entire time, did not have any lightheadedness or fainting episode Related Data Home Medications Medication Instructions Recorded Confirmed finasteride 5 mg tablet 5 mg PO DAILY 08/27/20 04/17/22 betamethasone dipropionate 0.05 % 1 appl topical BID 12/20/21 04/17/22 lotion chlorhexidine gluconate 0.12 % 1 appl PO BID 12/20/21 04/17/22 mouthwash amlodipine 5 mg tablet 10 mg PO DAILY 12/30/21 04/17/22 Previous Rx's Medication Instructions Recorded furosemide 40 mg tablet 40 mg PO DAILY #30 tabs 12/22/21 isosorbide mononitrate 30 mg 30 mg PO DAILY #30 tabs 12/22/21 tablet,extended release 24 hr metoprolol succinate 100 mg 100 mg PO DAILY #100 tabs 12/22/21 tablet,extended release 24 hr spironolactone 25 mg tablet 25 mg PO DAILY #30 tabs 12/22/21 warfarin 10 mg tablet 5 mg PO DAILY #30 tabs 12/23/21 Allergies Allergy/AdvReac Type Severity Reaction Status Date / Time No Known Allergies Allergy Mild NOT Verified 05/25/22 21:26 APPLICABLE Review of Systems Review of Systems: Yes all other systems are reviewed and are negative Constitutional: Constitutional: Reports as per HPI and Denies fever(s) Eyes: Eyes: Reports as per HPI and Reports no additional eye complaints ENT: Reports system reviewed and no additional complaints, except as documented, Reports as per HPI, Denies nasal congestion, Denies nasal discharge and Denies sore throat Cardiovascular: Cardiovascular: Reports as per HPI, Denies chest pain and Denies dyspnea Respiratory: Respiratory: Reports as per HPI, Denies cough and Denies dyspnea Gastrointestinal: Gastrointestinal: Reports as per HPI, Denies abdominal pain, Denies diarrhea and Denies vomiting Genitourinary: Genitourinary: Reports as per HPI, Denies hematuria, Denies dysuria and Denies urinary frequency Musculoskeletal: Musculoskeletal: Reports no additional musculoskeletal complaints and Denies numbness Integumentary/Breasts: Skin/Breast: Reports as per HPI and Denies rash Neurologic: Reports as per HPI, Denies focal weakness and Denies numbness Psychiatric: Psychiatric: Reports no additional psychiatric complaints and Reports as per HPI Endocrine: Endocrine: Reports no additional endocrine complaints and Reports as per HPI Hematologic/Lymphatic: Hematologic/Lymphatic: Reports no additional hematologic/lymphatic complaints, Reports as per HPI and Reports other (No peripheral edema) COUNT INCLUDES THE [facility] Past Medical History Medical History (Updated 05/25/22 @ 22:04 by Kevin Owusu MD) (HFpEF) heart failure with preserved ejection fraction Acute on chronic diastolic (congestive) heart failure BPH (benign prostatic hyperplasia) CHF (congestive heart failure) CHF (congestive heart failure) Congestive heart failure Herpes zoster, ocular HTN (hypertension) Hypertensive emergency Osteoarthritis Paroxysmal atrial fibrillation Persistent atrial fibrillation Pleural effusion Pleural effusion Pneumonitis Surgical History H/O cataract extraction History of cardioversion History of total right hip arthroplasty Status post colonoscopy with polypectomy Family History Family History Father No problems noted. Mother No problems noted. Social History Social History Household Members: None Housing: House Do you presently have visiting nurse or other home services: No Alcohol intake: never Patient Tobacco Use Status: Never used Tobacco Tobacco use type: Cigarette Years Smoked: 18 years e-Cigarette/Vaping Use: Never Used Advance Directives: Yes Advance Directives on File: Yes Advance Directives Date on File: 04/16/21 service: Yes (RESERVES) Current occupational status: retired Physical Exam ED Vital Signs: Vital Signs - 24 hr 05/25/22 21:26 Temperature 98.5 F Pulse Rate 75 Respiratory Rate 17 Blood Pressure 120/70 Pulse Oximetry 95 Oxygen Delivery Method Room Air BMI result Body Mass Index 28.3 Const General: no acute distress Orientation/consciousness: patient oriented x3 HENMT Head: Yes normal to inspection General nose exam: Normal external nose present Mouth: moist mucous membranes Throat: Yes posterior oropharynx normal, Yes tonsils normal and Yes uvula midline Eyes Eyelids: Yes eyelids normal Conjunctivae: conjunctivae normal Pupils: Equal, round and reactive pupils present Neck Neck: Yes supple Resp Effort & Inspection: normal respiratory effort Auscultation: clear to auscultation bilaterally Cardio Rate: regular rate Rhythm: regular rhythm Heart sounds: S1 normal heart sound present, S2 normal heart sound present, no gallops, no murmurs and no rubs GI Inspection: No distended Palpation (GI): Soft to palpation and nontender Auscultation: normal bowel sounds Skin General skin exam: other (Warm and dry) Neuro General: patient oriented x3 and CN's II-XI intact bilaterally Cranial nerves: Yes Equal, round and reactive pupils present Extrem General: Yes no pedal edema Psych Affect: normal affect Attitude: cooperative Course Course Course Narrative: patient had a mechanical fall, did not injure himself, though he could not get up from the floor to a chair. Patient did soil himself while on the floor, which she is aware of and states only happen because he was on the floor. Patient ambulated well in the ED, felt at baseline in terms of his ambulation. Patient does use a cane at baseline to help steady himself. Patient had no complaints and was eager to go home. Vital signs were normal. No testing was indicated. Discharge Plan Discharge Clinical Impression: Fall Patient Disposition: Home, Self-Care Instructions: Fall Prevention for Older Adults (ED) Additional Instructions: Make sure to use your cane when he ambulates. Continue your current medications. Follow up with her primary care physician as needed. Prescriptions: No Action betamethasone dipropionate 0.05 % lotion 1 appl topical BID chlorhexidine gluconate 0.12 % mouthwash 1 appl PO BID furosemide 40 mg Tablet 40 mg PO DAILY Qty: 30 0RF Protocol: Hold for SBP< HOLD for SBP < : 90 isosorbide mononitrate 30 mg Tablet Extended Release 24 Hr 30 mg PO DAILY Qty: 30 0RF Protocol: Hold for SBP< HOLD for SBP < : 90 metoprolol succinate 100 mg Tablet Extended Release 24 Hr 100 mg PO DAILY Qty: 100 0RF Protocol: Hold for SBP/HR < HOLD for SBP < : 90 HOLD for HR < : 60 spironolactone 25 mg Tablet 25 mg PO DAILY Qty: 30 0RF Protocol: Hold for SBP< HOLD for SBP < : 90 warfarin 10 mg tablet 5 mg PO DAILY Qty: 30 0RF finasteride 5 mg tablet 5 mg PO DAILY amlodipine 5 mg tablet 10 mg PO DAILY Protocol: Hold for SBP< HOLD for SBP < : 90 Discharge Date/Time: 05/25/22 22:34
== END 2022-05-25 22:34 | disposition home or self-care (01) ==
PROVIDERS: Emergency Provider Emergency Medicine; PCP Internal Medicine
DX: Z03.89 Encounter for observation for other suspected diseases and conditions ruled out (principal); Z91.81 History of falling
CPT/HCPCS: 99281

== ENCOUNTER 2022-06-25 11:57 | Outpatient (REF) | payer MEDICARE, SELFPAY ==
[2022-06-25 13:51] LABS: INTERNATIONAL NORM RATIO 3.6 (0.9-1.1); Prothrombin Time 43.4 SEC (10.0-13.1)
== END 2022-06-25 11:58 | disposition home or self-care (01) ==
LOC: HO.10HDLR 11:57
PROVIDERS: Visit Provider Internal Medicine
DX: I48.91 Unspecified atrial fibrillation (principal)
CPT/HCPCS: 36415; 85610

== ENCOUNTER 2022-07-03 22:54 | Emergency (ER) | payer MEDICARE, SELFPAY ==
--- NOTE | ~2022-07-03 | CT_ITS ---
EXAMINATION: NONCONTRAST HEAD CT NONCONTRAST CERVICAL SPINE CT INDICATION INFORMATION: Fall. Pain COMPARISON: 04/12/2021 TECHNIQUE: Separate noncontrast CT examinations of the head and cervical spine were performed. Coronal and sagittal images were created for each examination at the technologist workstation. This CT examination was performed using dose optimization techniques as appropriate, variously including the following: *Automated exposure control *Adjustment of mA and/or kV according to patient size (this includes techniques or standardized protocols for targeted exams where dose is matched to indication/reason for exam; i.e. extremities or head) *Use of iterative reconstruction technique DLP: 1340 mGy-cm FINDINGS: Head: There is no evidence of acute intracranial hemorrhage or territorial infarction. No abnormal mass effect or midline shift is seen. Chronic right frontoparietal infarct. Hart to white matter differentiation is otherwise well preserved. No extra-axial fluid collections are identified. No hydrocephalus. Proportional prominence of the ventricles and sulcal spaces is consistent with moderate volume loss. Patchy periventricular and deep white matter hypoattenuation is consistent with mild small vessel ischemic changes. No acute osseous or soft tissue abnormality. Mild mucoperiosteal thickening of the maxillary sinuses. The mastoid air cells and visualized portions of the paranasal sinuses are otherwise well aerated. Cervical spine: There is anatomic alignment of the vertebral bodies and posterior elements. The atlantoaxial and atlantooccipital articulations are intact. Vertebral body heights are maintained. There is multilevel intervertebral disc space narrowing with endplate osteophyte formation and facet arthropathy. No evidence of acute fracture. No prevertebral soft tissue swelling. Calcification of the ligamentum nuchae. Visualized portions of the lung apices are unremarkable. The thyroid gland is unremarkable. CT/CT cervical spine wo IV con IMPRESSION: 1. No acute intracranial finding. Chronic right frontoparietal infarct. 2. No acute fracture or malalignment of the cervical spine. Moderate degenerative changes.
[2022-07-03 22:59] VITALS: BP 140/61; BP 140/70; PULSE 60; PULSE 80; RESP 20; TEMP 36.5; O2SAT 94; O2SAT 98; BMI 30.2
[2022-07-03 23:21] VITALS: BP 140/61; PULSE 71; RESP 20; TEMP 36.9; O2SAT 94
[2022-07-03 23:36] LABS: Basophils Percent Auto 0.5 % (0-2); Eosinophils Absolute Auto 0.1 X10*3/uL (0.0-0.4); Eosinophils Percent Auto 1.7 % (0-4); Hematocrit 35.6 % (42.0-52.0); Hemoglobin 11.7 g/dl (14.0-18.0); Imm Gran Abs Auto 0.04 X10*3/uL (0.00-0.03); Imm Gran Pct Auto 0.5 % (0.0-0.4); MANUAL DIFF FLAG NO; Mean Corpuscular HGB Conc 32.9 g/dl (31.0-36.0); Mean Corpuscular Hemoglobin 33.4 pg (27.0-33.0); Mean Corpuscular Volume 101.7 fL (80.0-98.0); Mean Platelet Volume 9.4 fL (9.4-12.4); Monocytes Absolute Auto 0.8 X10*3/uL (0.1-1.2); Monocytes Percent Auto 9.6 % (2-11); Neutrophils Absolute Auto 6.2 x10*3/uL (2.0-8.3); Neutrophils Percent Auto 75.7 % (45-73); Platelet Count 179 X10*3/uL (160-400); Red Cell Distribution Width 14.2 % (11.0-16.0); White Blood Count 8.2 X10*3/uL (4.8-10.8)
[2022-07-03 23:42] LABS: INTERNATIONAL NORM RATIO 2.2 (0.9-1.1); Prothrombin Time 25.9 SEC (10.0-13.1)
--- OUTSIDE RECORDS SUMMARY | 2022-07-03 23:51 | XMS_ITS | Continuity of Care Document ---
:1935 Author Organization [facility] Address [address] [place] [id number]- Care Team Providers Name Role Phone Not on Staff, PCP Primary Care Physician Unavailable Encounter [facility] Date(s): 07/11/19 - 02/18/20 [facility] [address] [address]- [facility] Discharge Disposition: A-D/C Home Attending Physician: Juani Hodges MD Admitting Physician: Juani Hodges MD Referring Physician: Marcos Maurer MD
--- OUTSIDE RECORDS SUMMARY | 2022-07-03 23:51 | XMS_ITS ---
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, bilateral legs ALLERGIES No Known Allergies ENCOUNTERS Encounter Location Date Diagnosis [address] Jun, [place] unguium B35.1 ; [facility] [place] [facility] [place] [facility] L98.9 ; [place] [address] right toe(s) M79 .674 ; Pain in left toe(s) M 79.675 ; Unspecified athe rosclerosis of [place] arteri es of extremities, gissell ateral legs I70.203 and Ingr owing nail L60.[address] Mar, [place] unguium B35.1 ; Skin [place] disease L98.9 ; [place] [address] right toe(s) M79 .674 ; Pain in left toe(s) M 79.675 ; Unspecified athe rosclerosis of [place] arteri es of extremities, gissell ateral legs I70.203 and Ingr owing nail L60.[address] Dec, [place] unguium B35.1 ; [place] disease L98.9 ; [place] [address] right toe(s) M79 .674 ; Pain in left toe(s) M 79.675 ; Unspecified athe rosclerosis of [place] arteri es of extremities, gissell ateral legs I70.203 and Ingr owing nail L60.[address] Sep, [place] unguium B35.1 ; [place] disease L98.9 ; [place] [address] right toe(s) M79 .674 ; Pain in left toe(s) M 79.675 ; Unspecified athe rosclerosis of [place] arteri es of extremities, gissell ateral legs I70.203 and Ingr owing nail L60.[address] 08 May, 2021 [place] unguium B35.1 ; [place] [facility] [place], [place] disease L98.9 ; [place] [address] right toe(s) M79 .674 ; Pain in left toe(s) M 79.675 ; Unspecified athe rosclerosis of [place] arteri es of extremities, gissell ateral legs I70.203 and Ingr owing nail L60.[address] Feb, [place] unguium B35.1 ; [place] disease L98.9 ; [place] [address] right toe(s) M79 .674 ; Pain in left toe(s) M 79.675 ; Unspecified athe rosclerosis of [place] arteri es of extremities, gissell ateral legs I70.203 and Ingr owing nail L60.[address] Feb, [place] [facility] [place] [address] Nov, [place] unguium B35.1 ; Skin [place], [place] disease L98.9 ; [place] [address] right toe(s) M79 .674 ; Pain in left toe(s) M 79.675 ; Unspecified athe rosclerosis of [place] arteri es of extremities, gissell ateral legs I70.203 and Ingr owing nail L60.[address] Aug, [place] unguium B35.1 ; [facility] [place] disease L98.9 ; [place] [address] right toe(s) M79 .674 ; Pain in left toe(s) M 79.675 ; Unspecified athe rosclerosis of [place] arteri es of extremities, gissell ateral legs I70.203 and Ingr owing nail L60.0 [facility] [address] 28 May, 2020 [place] unguium B35.1 ; Skin [place], [place] disease L98.9 ; [place] [address] right toe(s) M79 .674 ; Pain in left toe(s) M 79.675 ; Unspecified athe rosclerosis of [place] arteri es of extremities, gissell ateral legs I70.203 and Ingr owing nail L60.0 IMMUNIZATIONS Vaccine Route Administration Date Status COVID-19 Pfizer BioNTech Vaccine Unknown Aug 07, 2021 Administered SOCIAL HISTORY Qualifiers Date Former Smoker REASON FOR REFERRAL FUNCTIONAL STATUS PLAN OF CARE Activity Details Follow Up 3 Months Reason: Future Appointment Provider Name:Burton Brown, 2022-09-28 02:00:00 PM, [address] [place] [address] [place], [address], Future/Pending Procedure [id number] SKIN LESIONS, 2 T O 4 Future/Pending Procedure [id number]-BYLF SKIN LESIONS, 2 T O 4 Future/Pending Procedure 22596-EXAC SKIN LESIONS, 2 T O 4 Future/Pending Procedure [id number]-SDFN SKIN LESIONS, 2 T O 4 Future/Pending Procedure [id number]-AQRL SKIN LESIONS, 2 T O 4 Future/Pending Procedure [id number]-LVGJ SKIN LESIONS, 2 T O 4 VITAL SIGNS Height 5 ft 9 in in 2022-06-29 Weight 206 lbs 2022-06-29 BMI 30.42 kg/m2 2022-06-29 Temperature 98.0 degrees Fahrenheit 2020-11-14 Blood pressure systolic 120 mm Hg 2022-06-29 Blood pressure diastolic 80 mm Hg 2022-06-29 MEDICATIONS Medication Instructions Dosage Frequency Start Date End Date Duration S tatus Finasteride 5 MG as directed Act wanda Warfarin Sodium as directed Acti ve 5 MG amLODIPine Active Besylate 10 MG Metoprolol 1 capsule Active Succinate 50 MG Amiodarone HCl as directed Activ e 200 MG PROCEDURES Procedure Date Ordered Result Body Site DEBRIDE NAIL, 6 OR MORE March 26, 2022 DEBRIDE NAIL, 6 OR MORE Jun 29, 2022 TRIM SKIN LESIONS, 2 TO 4 Sep 17, 2021 DEBRIDE NAIL, 6 OR MORE November 14, 2020 DEBRIDE NAIL, 6 OR MORE Sep 17, 2021 DEBRIDE NAIL, 6 OR MORE February 13, 2021 DEBRIDE NAIL, 6 OR MORE Jun 03, 2020 DEBRIDE NAIL, 6 OR MORE Aug 19, 2020 TRIM SKIN LESIONS, 2 TO 4 February 17, 2021 DEBRIDE NAIL, 6 OR MORE February 17, 2021 TRIM SKIN LESIONS, 2 TO 4 Jun 03, 2020 DEBRIDE NAIL, 6 OR MORE May 14, 2021 TRIM SKIN LESIONS, 2 TO 4 November 14, 2020 DEBRIDE NAIL, 6 OR MORE December 25, 2021 TRIM SKIN LESIONS, 2 TO 4 Aug 19, 2020 TRIM SKIN LESIONS, 2 TO 4 Jun 29, 2022 TRIM SKIN LESIONS, 2 TO 4 March 26, 2022 TRIM SKIN LESIONS, 2 TO 4 December 25, 2021 TRIM SKIN LESIONS, 2 TO 4 May 14, 2021 RESULTS No Results REASON FOR VISIT Insurance Providers [facility] Member Patient Patient Patient Patient Patient Subscriber Subscriber Subscriber Group Insurance Plan Plan Plan Plan ID Relationship Address Phone Name Date of ID Name Date of No Type Insurance Insurance Insurance Coverage to Subscriber Address Phone Name Dates Medicare National [id number] Medicare self [place]ierry [id number] Govt [facility] [address] [place] [address] [employer] [address] [employer] self [place]ierry [id number] [facility] [id number] [facility] [address] [facility] [address] Medicare National [id number] Medicare self Thierry [id number] Govt [facility] [address] [employer] [address] [place] [address] [employer] [phone] Wellcare self Thierry [id number] Assist [id number] Assist [place] [facility] Open [id number] MEDICAL (GENERAL) HISTORY Type Description Date Medical History Crohns disease Medical History Heart disease Medical History High blood pressure Medical History Back,Hip,and Knee pain Medical History Mumps Medical History Measles Medical History Chicken pox Medical History Joint implants/screws Medical History Transfusions Surgical History 2 hip replacement 10-12 years ago
--- NOTE | 2022-07-03 23:53 | ED.FALL ---
HPI - Fall General Chief Complaint: Fall Stated Complaint: fall/head strike Time Seen by Provider: 07/03/22 22:57 Source: patient and EMS Mode of arrival: EMS Limitations: no limitations History of Present Illness HPI Narrative: Patient with history of atrial fibrillation on Coumadin had 2 cocktails drinks and had a mechanical fall prior to arrival fell forward has a laceration of the nose. No loss of consciousness no chest pain no palpitation no other injuries patient came in cervical collar Related Data Home Medications Medication Instructions Recorded Confirmed finasteride 5 mg tablet 5 mg PO DAILY 08/27/20 04/17/22 betamethasone dipropionate 0.05 % 1 appl topical BID 12/20/21 04/17/22 lotion chlorhexidine gluconate 0.12 % 1 appl PO BID 12/20/21 04/17/22 mouthwash amlodipine 5 mg tablet 10 mg PO DAILY 12/30/21 04/17/22 Previous Rx's Medication Instructions Recorded furosemide 40 mg tablet 40 mg PO DAILY #30 tabs 12/22/21 isosorbide mononitrate 30 mg 30 mg PO DAILY #30 tabs 12/22/21 tablet,extended release 24 hr metoprolol succinate 100 mg 100 mg PO DAILY #100 tabs 12/22/21 tablet,extended release 24 hr spironolactone 25 mg tablet 25 mg PO DAILY #30 tabs 12/22/21 warfarin 10 mg tablet 5 mg PO DAILY #30 tabs 12/23/21 Allergies Allergy/AdvReac Type Severity Reaction Status Date / Time No Known Allergies Allergy Mild NOT Verified 05/25/22 21:26 APPLICABLE Review of Systems Review of Systems: Yes all other systems are reviewed and are negative [facility] Past Medical History Medical History (HFpEF) heart failure with preserved ejection fraction Acute on chronic diastolic (congestive) heart failure BPH (benign prostatic hyperplasia) CHF (congestive heart failure) CHF (congestive heart failure) Congestive heart failure Herpes zoster, ocular HTN (hypertension) Hypertensive emergency Osteoarthritis Paroxysmal atrial fibrillation Persistent atrial fibrillation Pleural effusion Pleural effusion Pneumonitis Surgical History H/O cataract extraction History of cardioversion History of total right hip arthroplasty Status post colonoscopy with polypectomy Family History Family History Father No problems noted. Mother No problems noted. Social History Social History Household Members: None Housing: House Do you presently have visiting nurse or other home services: No Alcohol intake: never Patient Tobacco Use Status: Never used Tobacco Tobacco use type: Cigarette Years Smoked: 18 years e-Cigarette/Vaping Use: Never Used Advance Directives: Yes Advance Directives on File: Yes Advance Directives Date on File: 04/16/21 service: Yes (RESERVES) Current occupational status: retired Physical Exam Vital Signs: Vital Signs: Last Vital Signs Temp 98.7 F 07/04/22 06:00 Pulse 81 07/04/22 06:00 Resp 16 07/04/22 06:00 BP 153/72 H 07/04/22 06:00 Pulse Ox 95 07/04/22 06:00 O2 Del Method 07/04/22 06:00 BMI result Body Mass Index 30.2 Appearance: Alert. Oriented X3. No acute distress. Eyes: Left pupil status post iridectomy No Nystagmus HEENT: Pharynx normal. Oral Mucosa moist laceration at the nose bridge and occipital area Neck: Normal inspection. Neck supple. CVS: Normal heart rate and rhythm. Pulses normal. Respiratory: No respiratory distress. Equal air entry bilateral, no wheezing/rales/rhonchi Abdomen: Soft and nontender. Bowel sounds are present, no mass palpable, no CVA tenderness Skin: Skin warm and dry. Normal skin color. Normal skin turgor. Extremities: No lower extremity edema. No calf tenderness Neuro: Oriented X 3. No motor deficit. No sensory deficit.No cerebellar signs , cranial nerves II-XII intact Procedures Laceration Laceration 1: Site: face (Nose) Size (cm): 2.5 Description: irregular Depth: simple, single layer Skin layer closed with: other (Dermabond) MDM - Fall MDM Narrative Medical decision making narrative: 06:00 Patient status post mechanical fall after few drinks had laceration of the nose which was approximated using Dermabond at this time patient ambulatory without any discomfort discharge patient home with family Lab Data Attestation: I reviewed the patient's lab results. Result diagrams: 07/03/22 23:28 07/03/22 23:28 Labs: Lab Results 07/03/22 07/03/22 07/03/22 Range/Units 23:28 23:28 23:28 WBC 8.2 (4.8-10.8) X10*3/uL RBC 3.50 L (4.60-5.80) X10*6/uL Hgb 11.7 L (14.0-18.0) g/dl Hct 35.6 L (42.0-52.0) % MCV 101.7 H (80.0-98.0) fL MCH 33.4 H (27.0-33.0) pg MCHC 32.9 (31.0-36.0) g/dl RDW 14.2 (11.0-16.0) % Plt Count 179 (160-400) X10*3/uL MPV 9.4 (9.4-12.4) fL Immature Gran % (Auto) 0.5 H (0.0-0.4) % Neut % (Auto) 75.7 H (45-73) % Lymph % (Auto) 12.0 L (20-40) % [place] % (Auto) 9.6 (2-11) % Eos % (Auto) 1.7 (0-4) % Baso % (Auto) 0.5 (0-2) % Lymph # (Auto) 1.0 L (1.2-4.9) X10*3/uL [place] # (Auto) 0.8 (0.1-1.2) X10*3/uL Eos # (Auto) 0.1 (0.0-0.4) X10*3/uL Baso # (Auto) 0.0 (0.0-0.2) X10*3/uL Abs Immat Gran (auto) 0.04 H (0.00-0.03) X10*3/uL Absolute Neuts (auto) 6.2 (2.0-8.3) x10*3/uL Absolute Nucleated RBC 0.000 (0.0-0.012) X10*3/uL Nucleated RBC % (auto) 0.0 (0.0-0.2) /100WBC PT 25.9 H (10.0-13.1) SEC INR 2.2 H (0.9-1.1) Sodium 140 (135-145) mmol/L Potassium 4.4 (3.3-5.1) mmol/L Chloride 102 (96-108) mmol/L Carbon Dioxide 25 (22-29) mmol/L Anion Gap 17 (12-20) BUN 23 H (9-16) mg/dL Creatinine 0.98 (0.5-1.4) mg/dL Estim Creat Clear Calc 59.8 Estimated GFR > 60 Random Glucose 122 H D (60-115) mg/dL Calcium 8.9 (8.4-10.2) mg/dL Total Bilirubin 0.5 (0.0-1.0) mg/dL AST 18 (5-37) U/L ALT 9 (0-40) U/L Alkaline Phosphatase 86 D (39-117) U/L Total Protein 7.3 (6.5-8.0) g/dL Albumin 4.3 (3.5-5.0) g/dL Ethyl Alcohol 220 mg/dL COVID-19 (TAMI) (Negative) COVID-19 Clin Com 07/04/22 Range/Units 00:20 WBC (4.8-10.8) X10*3/uL RBC (4.60-5.80) X10*6/uL Hgb (14.0-18.0) g/dl Hct (42.0-52.0) % MCV (80.0-98.0) fL MCH (27.0-33.0) pg MCHC (31.0-36.0) g/dl RDW (11.0-16.0) % Plt Count (160-400) X10*3/uL MPV (9.4-12.4) fL Immature Gran % (Auto) (0.0-0.4) % Neut % (Auto) (45-73) % Lymph % (Auto) (20-40) % [place] % (Auto) (2-11) % Eos % (Auto) (0-4) % Baso % (Auto) (0-2) % Lymph # (Auto) (1.2-4.9) X10*3/uL [place] # (Auto) (0.1-1.2) X10*3/uL Eos # (Auto) (0.0-0.4) X10*3/uL Baso # (Auto) (0.0-0.2) X10*3/uL Abs Immat Gran (auto) (0.00-0.03) X10*3/uL Absolute Neuts (auto) (2.0-8.3) x10*3/uL Absolute Nucleated RBC (0.0-0.012) X10*3/uL Nucleated RBC % (auto) (0.0-0.2) /100WBC PT (10.0-13.1) SEC INR (0.9-1.1) Sodium (135-145) mmol/L Potassium (3.3-5.1) mmol/L Chloride (96-108) mmol/L Carbon Dioxide (22-29) mmol/L Anion Gap (12-20) BUN (9-16) mg/dL Creatinine (0.5-1.4) mg/dL Estim Creat Clear Calc Estimated GFR Random Glucose (60-115) mg/dL Calcium (8.4-10.2) mg/dL Total Bilirubin (0.0-1.0) mg/dL AST (5-37) U/L ALT (0-40) U/L Alkaline Phosphatase (39-117) U/L Total Protein (6.5-8.0) g/dL Albumin (3.5-5.0) g/dL Ethyl Alcohol mg/dL COVID-19 (TAMI) Negative (Negative) COVID-19 Clin Com See Note Discharge Plan Discharge Clinical Impression: Fall, Laceration of nose, Alcohol intoxication Patient Disposition: Home, Self-Care Instructions: Fall Prevention for Older Adults (ED), Alcohol Intoxication (ED), Facial Laceration (ED) Additional Instructions: Do not drink alcohol Care as advised Prescriptions: No Action betamethasone dipropionate 0.05 % lotion 1 appl topical BID chlorhexidine gluconate 0.12 % mouthwash 1 appl PO BID furosemide 40 mg Tablet 40 mg PO DAILY Qty: 30 0RF Protocol: Hold for SBP< HOLD for SBP < : 90 isosorbide mononitrate 30 mg Tablet Extended Release 24 Hr 30 mg PO DAILY Qty: 30 0RF Protocol: Hold for SBP< HOLD for SBP < : 90 metoprolol succinate 100 mg Tablet Extended Release 24 Hr 100 mg PO DAILY Qty: 100 0RF Protocol: Hold for SBP/HR < HOLD for SBP < : 90 HOLD for HR < : 60 spironolactone 25 mg Tablet 25 mg PO DAILY Qty: 30 0RF Protocol: Hold for SBP< HOLD for SBP < : 90 warfarin 10 mg tablet 5 mg PO DAILY Qty: 30 0RF finasteride 5 mg tablet 5 mg PO DAILY amlodipine 5 mg tablet 10 mg PO DAILY Protocol: Hold for SBP< HOLD for SBP < : 90 Interventions: ED Discharge Assessment Last Done: 07/04/22 06:41 Discharge Date/Time: 07/04/22 06:49
[2022-07-03 23:57] LABS: Alanine Aminotransferase 9 U/L (0-40); Albumin Level 4.3 g/dL (3.5-5.0); Alkaline Phosphatase 86 U/L (39-117); Anion Gap 17 (12-20); Aspartate Amino Transferase 18 U/L (5-37); Bilirubin Total 0.5 mg/dL (0.0-1.0); Blood Urea Nitrogen 23 mg/dL (9-16); Calcium 8.9 mg/dL (8.4-10.2); Carbon Dioxide 25 mmol/L (22-29); Chloride 102 mmol/L (96-108); Creatinine Clr Calc Pharmacy 59.8; Estimated Glomerular Filt Rate > 60; Glucose Random 122 mg/dL (60-115); Potassium 4.4 mmol/L (3.3-5.1); Sodium 140 mmol/L (135-145); Total Protein 7.3 g/dL (6.5-8.0)
--- NOTE | 2022-07-04 00:09 | ECG_ITS ---
Test Reason : FALL Blood Pressure : / mmHG Vent. Rate : 067 BPM Atrial Rate : 000 BPM P-R Int : 000 ms QRS Dur : 156 ms QT Int : 482 ms P-R-T Axes : 000 077 -09 degrees QTc Int : 509 ms Atrial fibrillation with premature ventricular or aberrantly conducted complexes Right bundle branch block Septal infarct (cited on or before 28-JAN-2018) Inferior infarct (cited on or before 28-JAN-2018) Abnormal ECG When compared with ECG of 20-DEC-2021 11:30, Vent. rate has decreased BY 56 BPM Questionable change in initial forces of Anterior leads Referred By: Guanaco Mclean Electronically Signed By:SUSAN MORRISON MD
[2022-07-04 00:18] VITALS: BP 134/60; PULSE 74; RESP 16; TEMP 36.9; O2SAT 95
[2022-07-04 00:41] LABS: COVID-19 Test Negative (Negative)
[2022-07-04 01:10] LABS: Ethanol 220 mg/dL
[2022-07-04 01:57] VITALS: BP 126/60; PULSE 76; RESP 18; TEMP 36.7; O2SAT 95
--- NOTE | 2022-07-04 01:58 | PC.NURSE ---
0200 rounding done pt asleep vs taken and warm blanket given ,call kelly within reach .
--- NOTE | 2022-07-04 02:21 | PC.NURSE ---
Pt sleeping at this time, respirations regular.
--- NOTE | 2022-07-04 03:01 | PC.NURSE ---
pt was assisted to use the urinal ,urinal empty and bedding change .
[2022-07-04 03:54] VITALS: BP 160/75; PULSE 87; RESP 16; TEMP 36.4; O2SAT 98
--- NOTE | 2022-07-04 03:54 | PC.NURSE ---
0400 rounding pt as assisted to use the urinal ,vs taken ,called kelly with in reach .
[2022-07-04 06:00] VITALS: BP 153/72; PULSE 81; RESP 16; TEMP 37.1; O2SAT 95
--- NOTE | 2022-07-04 06:07 | PC.NURSE ---
0600 ROUNDING DONE ,PT AWAKE IN BED VS TAKEN PT WAS ASSISTED TO USE URINAL ,CALL ALVAREZ IN WITHIN REACH .
--- NOTE | 2022-07-04 06:09 | PC.NURSE ---
Daughter called for ride, family in route.
== END 2022-07-04 06:49 | disposition home or self-care (01) ==
PROVIDERS: Emergency Provider Internal Medicine
DX: S01.21XA Laceration without foreign body of nose, initial encounter (principal); R51.9 Headache, unspecified; W26.9XXA Contact with unspecified sharp object(s), initial encounter; Y93.9 Activity, unspecified; Y92.9 Unspecified place or not applicable; Y99.9 Unspecified external cause status; Z20.822 Contact with and (suspected) exposure to COVID-19; Z79.899 Other long term (current) drug therapy; Z79.01 Long term (current) use of anticoagulants; F17.210 Nicotine dependence, cigarettes, uncomplicated; Z71.6 Tobacco abuse counseling
CPT/HCPCS: 12011; 36415; 70450; 72125; 80053; 82077; 85025; 85610; 87635; 93005; 99284; 99285

== ENCOUNTER 2022-07-17 11:40 | Outpatient (REF) | payer MEDICARE, SELFPAY ==
[2022-07-17 13:45] LABS: INTERNATIONAL NORM RATIO 3.8 (0.9-1.1); Prothrombin Time 46.7 SEC (10.0-13.1)
== END 2022-07-17 11:41 | disposition home or self-care (01) ==
LOC: HO.10HDLR 11:40
PROVIDERS: Visit Provider Internal Medicine
DX: I48.91 Unspecified atrial fibrillation (principal)
CPT/HCPCS: 36415; 85610

== ENCOUNTER 2022-08-07 11:42 | Outpatient (REF) | payer MEDICARE, SELFPAY ==
[2022-08-07 13:59] LABS: INTERNATIONAL NORM RATIO 2.8 (0.9-1.1); Prothrombin Time 33.5 SEC (10.0-13.1)
== END 2022-08-07 11:43 | disposition home or self-care (01) ==
LOC: HO.10HDLR 11:42
PROVIDERS: Visit Provider Internal Medicine
DX: I48.91 Unspecified atrial fibrillation (principal)
CPT/HCPCS: 36415; 85610

== ENCOUNTER 2022-08-10 23:07 | Inpatient (IN) | payer MEDICARE, SELFPAY ==
--- NOTE | 2022-08-10 | ECG_ITS ---
Test Reason : etoh Blood Pressure : / mmHG Vent. Rate : 083 BPM Atrial Rate : 000 BPM P-R Int : 000 ms QRS Dur : 162 ms QT Int : 468 ms P-R-T Axes : 000 066 -23 degrees QTc Int : 549 ms Atrial fibrillation with Premature ventricular complexes Right bundle branch block Inferior infarct (cited on or before 28-JAN-2018) Abnormal ECG When compared with ECG of 04-JUL-2022 00:11, Criteria for Septal infarct are no longer Present Referred By: Milena Herndon Electronically Signed By:PERICO BHARDWAJ MD
--- NOTE | ~2022-08-10 | CT_ITS ---
EXAMINATION: CT CERVICAL SPINE WITHOUT CONTRAST; UNENHANCED CT OF THE HEAD. CLINICAL INFORMATION: Fall. Neck pain. Head strike. EtOH. COMPARISON: CT head and cervical spine 07/03/2022. TECHNIQUE: Routine unenhanced CT of the head with multiple coronal and sagittal reformatted images; routine unenhanced CT of the cervical spine with multiple coronal and sagittal reformatted images. This CT examination was performed using dose optimization techniques as appropriate, variously including the following: *Automated exposure control *Adjustment of mA and/or kV according to patient size (this includes techniques or standardized protocols for targeted exams where dose is matched to indication/reason for exam; i.e. extremities or head) *Use of iterative reconstruction technique DLP: 1267 mGy-cm FINDINGS: CT head: No intrarenal hemorrhage, tumors or acute infarcts are noted. Marked diffuse commensurate prominence of ventricles and sulci is noted. Focal cortical encephalomalacia is again noted in the parasagittal right parietal lobe. Segmental calcific atherosclerosis of the cavernous portions of the internal carotid arteries is visualized. Bilateral ocular lens extractions are noted. Mild lobulated mucosal thickening is noted in the maxillary sinuses. No mastoid or middle ear cavity effusions. CT cervical spine: No fractures or acute appearing subluxations are noted. Moderate intervertebral disc space narrowing is present at C3-C4, C4-C5, C5-C6. Mild multilevel facet hypertrophic changes are noted. Moderate multilevel anterior endplate osteophytosis. No prevertebral soft tissue inflammatory changes or fluid collections. Moderate bilateral carotid bulb calcific atherosclerosis. CT/CT cervical spine wo IV con IMPRESSION: CT HEAD: 1. No acute abnormalities. 2. Diffuse parenchymal volume loss the brain unchanged compared with 07/03/2022. 3. 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 CT CERVICAL SPINE: 1. No acute abnormalities. 2. Multilevel chronic spondylosis. 3. Moderate bilateral carotid bulb calcific atherosclerosis.
--- NOTE | ~2022-08-10 | CT_ITS ---
EXAMINATION: CT chest w IV con, CT abdomen pelvis w IV con CLINICAL INFORMATION: Reason for Exam cp sp fall etoh trauma COMPARISON: CT chest 10/07/2021, CT chest, abdomen pelvis 04/12/2021. TECHNIQUE: IV contrast and CT of the chest, abdomen and pelvis Intravenous Contrast: Omnipaque [address] examination was performed using dose optimization techniques as appropriate, variously including the following: *Automated exposure control *Adjustment of mA and/or kV according to patient size (this includes techniques or standardized protocols for targeted exams where dose is matched to indication/reason for exam; i.e. extremities or head) *Use of iterative reconstruction technique DLP: 1543 mGy-cm FINDINGS: Mediastinum: No abnormal mediastinal fluid collections. Moderate scattered calcific atherosclerosis of the thoracic aorta. Normal aortic caliber and contour. No mediastinal lymphadenopathy. Normal heart size. No pericardial thickening or fluid collections. Partial visualization of at least mild scattered coronary artery calcific atherosclerosis. Lungs and pleura: Mild-moderate centrilobular emphysematous changes. *A 2 mm subpleural noncalcified nodules present in the right upper pulmonary lobe (series 9 image 238) slightly increased in size compared with 10/07/2021. *Approximately 6 subpleural closely approximated noncalcified nodules ranging in size up to 5 mm diameter present within the superior segment of the left lower pulmonary lobe (series 9 image 215). These findings are new compared with 10/07/2021 A 6 mm noncalcified subpleural nodule is newly identified in the parasagittal right upper pulmonary lobe (series 9 image 139). *Mild bibasilar peribronchial wall thickening is identified. A small low density (-20 Hounsfield unit) dependent right pleural effusion is present. CHEST WALL: No axillary lymphadenopathy. Liver: Normal. Gallbladder and biliary system: Multiple densely calcified gallstones are present within the gallbladder lumen. No biliary duct dilatation noted. Pancreas: Mild diffuse atrophy. Spleen: Mildly hypoplastic. No perisplenic fluid collections. Adrenal glands: Unchanged 8 mm left adrenal nodule (9 Hounsfield units on unenhanced abdomen 04/12/2021). This finding is most likely to represent a benign adenoma and requires no additional imaging follow-up. Kidneys: A 9 mm rounded low density (-[address] 04/12/2021) lesion is present in the interpolar segment of the right kidney and is consistent with a benign, simple cyst requiring no additional imaging follow-up. Several scattered subcentimeter rounded low density renal lesions are noted and are too small to characterize but most likely represent simple cysts and require no additional imaging follow-up. A 7 mm low density (10 Hounsfield unit) focus consistent with a simple renal cyst projecting anteriorly from the right kidney and requires no additional imaging follow-up cysts and with a benign, simple cyst. Urinary bladder: Decompressed. Gastrointestinal system: Mild sigmoid diverticulosis. No free intraperitoneal fluid or gas collections. The appendix is not definitively visualized. A structure which may represent a diminutive appendix or appendiceal stump is noted (series 14 image 505). The stomach is normal in appearance. Abdominal wall: A periumbilical hernia containing fat measures 1 diameter. A left inguinal hernia containing fat is noted. Partial visualization is made of penile prosthetic pump within the right inguinal region. Abdominal lymphovascular structures: Moderate scattered calcific atherosclerosis. Osseous structures: Multiple chronic right rib posttraumatic deformities are noted. Multilevel anterior endplate contiguous bridging osteophytosis is noted consistent with DISH. The sternum is intact. Multilevel chronic spondylosis of the lumbar spine is noted. Chronic posterior manic deformity of the right inferior pubic ramus is noted. Partial visualization is made of bilateral total hip arthroplasties. No vertebral body compression deformities identified. CT/CT abdomen pelvis w IV con IMPRESSION: CT of the chest, abdomen and pelvis: *No acute traumatic abnormalities identified. *Small right pleural effusion. *Small number of scattered pulmonary nodules ranging in size up to 6 mm diameter. Per the 2017 revised Fleischner Society guidelines, in low-risk patients recommend follow-up CT at 3-6 months and consideration of subsequent CT at 18-24 months. In patients at high-risk for pulmonary neoplasm, recommend follow-up CT at 3-[address] at 18-24 months. *Mild-moderate centrilobular emphysema. *Mild bibasilar posterior dependent peribronchial wall thickening. Findings could represent mild aspiration pneumonitis. *Cholelithiasis.
[2022-08-10 23:14] VITALS: BP 129/73; BP 138/70; PULSE 60; PULSE 89; RESP 26; TEMP 36.6; O2SAT 90; O2SAT 94; BMI 30.5
[2022-08-10 23:40] LABS: MANUAL DIFF FLAG NO
[2022-08-10 23:42] VITALS: BP 129/73; PULSE 78; RESP 18; TEMP 36.5; O2SAT 98
[2022-08-10 23:42] LABS: Basophils Percent Auto 0.3 % (0-2); Eosinophils Percent Auto 0.4 % (0-4); Hematocrit 34.1 % (42.0-52.0); Hemoglobin 10.8 g/dl (14.0-18.0); Imm Gran Abs Auto 0.02 X10*3/uL (0.00-0.03); Imm Gran Pct Auto 0.3 % (0.0-0.4); Lymphocytes Absolute Auto 0.4 X10*3/uL (1.2-4.9); Lymphocytes Percent Auto 4.7 % (20-40); Mean Corpuscular HGB Conc 31.7 g/dl (31.0-36.0); Mean Corpuscular Hemoglobin 31.2 pg (27.0-33.0); Mean Corpuscular Volume 98.6 fL (80.0-98.0); Mean Platelet Volume 9.6 fL (9.4-12.4); Monocytes Absolute Auto 0.6 X10*3/uL (0.1-1.2); Monocytes Percent Auto 7.8 % (2-11); Neutrophils Absolute Auto 6.7 x10*3/uL (2.0-8.3); Neutrophils Percent Auto 86.5 % (45-73); Platelet Count 184 X10*3/uL (160-400); Red Blood Count 3.46 X10*6/uL (4.60-5.80); Red Cell Distribution Width 13.4 % (11.0-16.0); White Blood Count 7.8 X10*3/uL (4.8-10.8)
--- NOTE | 2022-08-10 23:43 | PC.NURSE ---
pt was change into hospital attire by this pct .
--- NOTE | 2022-08-10 23:55 | ED_ITS ---
HPI - Fall General Chief Complaint: Fall Stated Complaint: ETOH,LEFT ARM SKIN TEAR Time Seen by Provider: 08/10/22 23:52 Source: EMS Mode of arrival: EMS Limitations: other (Patient intoxicated, poor historian) History of Present Illness HPI Narrative: 87-year-old male history of heart failure, persistent atrial fibrillation anticoagulated on Coumadin, presents to the emergency department status post unwitnessed fall comes in by ambulance. Patient intoxicated, poor historian unsure if he hit his head, unknown down time, patient is on blood thinners. EMS found half a bottle of tri next to him partially consumed. Patient unsure of how much she drinks. Denies drug use. Denies SI and HI. Very poor historian. Unreliable HPI and ROS. Related Data Home Medications Medication Instructions Recorded Confirmed finasteride 5 mg tablet 5 mg PO DAILY 08/27/20 04/17/22 betamethasone dipropionate 0.05 % 1 appl topical BID 12/20/21 04/17/22 lotion chlorhexidine gluconate 0.12 % 1 appl PO BID 12/20/21 04/17/22 mouthwash amlodipine 5 mg tablet 10 mg PO DAILY 12/30/21 04/17/22 Previous Rx's Medication Instructions Recorded furosemide 40 mg tablet 40 mg PO DAILY #30 tabs 12/22/21 isosorbide mononitrate 30 mg 30 mg PO DAILY #30 tabs 12/22/21 tablet,extended release 24 hr metoprolol succinate 100 mg 100 mg PO DAILY #100 tabs 12/22/21 tablet,extended release 24 hr spironolactone 25 mg tablet 25 mg PO DAILY #30 tabs 12/22/21 warfarin 10 mg tablet 5 mg PO DAILY #30 tabs 12/23/21 Allergies Allergy/AdvReac Type Severity Reaction Status Date / Time No Known Allergies Allergy Mild NOT Verified 05/25/22 21:26 APPLICABLE Review of Systems Review of Systems: Constitutional : No Weight loss, No Fever, No Chills, No Fatigue, No Malaise ENT/Mouth : No sore throat, No Rhinorrhea Eyes: No Eye Pain, No Swelling, No Redness Cardiovascular : No Chest Pain, No SOB, No Dyspnea on Exertion, No Orthopnea, No Edema, No Palpitations Respiratory : No Cough, No Sputum, No Wheezing Gastrointestinal : No Nausea, No Vomiting, No Diarrhea, No Constipation, No abdominal Pain, No Hematochezia, No Melena Genitourinary : No Dysuria, No Urinary Frequency, No Hematuria, Musculoskeletal : No joint pain, No Myalgias, No Joint Swelling Skin : No Skin Lesions, No rash, + skin tear Neuro : No Weakness, No Numbness, No Dizziness, No Headache Psych : No Anxiety/Panic, No Depression All other systems reviewed and are negative Yes all other systems are reviewed and are negative [facility] Past Medical History Attestation statement: The following information was validated with the patient. Source: old records reviewed and nursing notes reviewed Medical History (HFpEF) heart failure with preserved ejection fraction Acute on chronic diastolic (congestive) heart failure BPH (benign prostatic hyperplasia) CHF (congestive heart failure) CHF (congestive heart failure) Congestive heart failure Herpes zoster, ocular HTN (hypertension) Hypertensive emergency Osteoarthritis Paroxysmal atrial fibrillation Persistent atrial fibrillation Pleural effusion Pleural effusion Pneumonitis Surgical History H/O cataract extraction History of cardioversion History of total right hip arthroplasty Status post colonoscopy with polypectomy Family History Family History Father No problems noted. Mother No problems noted. Social History Social History Household Members: None Housing: House Do you presently have visiting nurse or other home services: No Alcohol intake: never Patient Tobacco Use Status: Never used Tobacco Tobacco use type: Cigarette Years Smoked: 18 years e-Cigarette/Vaping Use: Never Used Advance Directives: Yes Advance Directives on File: Yes Advance Directives Date on File: 04/16/21 service: Yes (RESERVES) Current occupational status: retired Physical Exam Vital Signs: Vital Signs: Last Vital Signs Temp 97.7 F 08/10/22 23:42 Pulse 78 08/10/22 23:42 Resp 18 08/10/22 23:42 BP 129/73 08/10/22 23:42 Pulse Ox 98 08/10/22 23:42 O2 Del Method 08/10/22 23:42 BMI result Body Mass Index 30.5 vss Appearance: Alert.? Oriented X3.? No acute distress. Smells like alcohol? Head: Normocephalic, atraumatic, no step-offs or deformities Eyes: Pupils equal, round and reactive to light.?+ left pupil tear drop shaped ENT: Pharynx normal.? Neck: Normal inspection.? Neck supple.? CVS: Normal heart rate and rhythm.? Pulses normal.? Respiratory: No respiratory distress.? Breath sounds normal.? Abdomen: Soft and nontender.? Skin: Skin warm and dry.? Normal skin color.? Normal skin turgor.?+ skin tear to left elbow Extremities: No lower extremity edema.? No calf ttp. 5/5 strength to bilateral upper and lower extremities Neuro: Oriented X 3.? No motor deficit.? No sensory deficit. CN 2-12 intact Course Reevaluation(s) Reevaluation #1: Patient's CBC with a normocytic anemia appears to be around patient's baseline. Chemistry with no acute findings requiring intervention. BUN slightly elevated likely secondary to dehydration/poor p.o. intake. Ethanol 253. Time: 00:24 Reevaluation #2: CPK wnl. EKG with atrial fibrillation, rate of 83, right bundle-branch block ST elevations or inversions concerning for ischemia. No significant changes when compared to EKG of June 2022. Patient's PTT & INR wnl Time: 01:06 Reevaluation #3: CT of head with no acute abnormalities. Diffuse parenchymal volume loss in the brain. Chronic focal infarct of the right parietal lobe unchanged. No acute fractures, dislocations or traumatic subluxations of cervical spine. Pending CTs of the abdomen/pelvis and chest. Troponin is noted to be slightly elevated 35.3, EKG nonischemic however will obtain repeat troponin at 02:35 it is ordered. Time: 01:28 Additional Reevaluation(s): 0131 Laboratory studies pending, repeat troponin at 02:35 pending, re-evaluation and disposition pending. I did put in a substance use disorder evaluation on this patient. Sign-out given to night provider Dr. Ridley Medications Administered Discontinued Medications Generic Name Dose Route Start Last Admin Trade Name Freq PRN Reason Stop Dose Admin Iohexol 85 ml 08/11/22 00:30 08/11/22 00:30 Iohexol 350 Mg/Ml 100 Ml Infus..Btl IV 08/11/22 00:31 85 ml ONCE ONE Administration Medical Decision Making Medical Decision Making [facility] Narrative: 2817 87-year-old male presents with unwitnessed fall, was drinking alcohol, likely loss of consciousness, unknown down time, on blood thinners. Denies any other complaints at this time. Patient poor historian. Physical examination with a teardrop left pupil unclear if this is new or old finding neuro nonfocal. Patient following commands. Lungs clear. Regular rate and rhythm. Abdomen soft nontender nondistended. Small abrasion to left elbow area.. Patient's smells like alcohol however. GCS 15. NIH stroke scale 0. Plan at this time labs, trauma scan, PT INR. Will rule out intracranial hemorrhage, traumatic injuries, fractures, dislocations. Critical Care Time Critical Care Time Critical Care Time: No Discharge Plan Discharge Clinical Impression: Fall, Alcohol intoxication, Skin tear of left upper extremity, Concussion with loss of consciousness Patient Disposition: Still a Patient Instructions: Concussion (ED), Alcohol Intoxication (ED), Post Concussion Syndrome (ED), Fall Prevention (ED), Laceration Without Closure (ED) Additional Instructions: Take your medications as prescribed. If you were prescribed antibiotics today, it is important that you take your medication to their entirety, do not skip any doses, do not finish them early. Follow-up with your primary care provider this week. Return to the emergency department with new or worsening symptoms. Such as fevers, chills, chest pain, shortness of breath, nausea, vomiting, dizziness, headache, vision changes, lethargy In case of emergency call 911 Drinking on a blood thinner is extremely dangerous. Prescriptions: No Action betamethasone dipropionate 0.05 % lotion 1 appl topical BID chlorhexidine gluconate 0.12 % mouthwash 1 appl PO BID furosemide 40 mg Tablet 40 mg PO DAILY Qty: 30 0RF Protocol: Hold for SBP< HOLD for SBP < : 90 isosorbide mononitrate 30 mg Tablet Extended Release 24 Hr 30 mg PO DAILY Qty: 30 0RF Protocol: Hold for SBP< HOLD for SBP < : 90 metoprolol succinate 100 mg Tablet Extended Release 24 Hr 100 mg PO DAILY Qty: 100 0RF Protocol: Hold for SBP/HR < HOLD for SBP < : 90 HOLD for HR < : 60 spironolactone 25 mg Tablet 25 mg PO DAILY Qty: 30 0RF Protocol: Hold for SBP< HOLD for SBP < : 90 warfarin 10 mg tablet 5 mg PO DAILY Qty: 30 0RF finasteride 5 mg tablet 5 mg PO DAILY amlodipine 5 mg tablet 10 mg PO DAILY Protocol: Hold for SBP< HOLD for SBP < : 90 Referrals: Marcos Maurer MD [Primary Care Provider] - 2 days
[2022-08-10 23:59] LABS: Ethanol 253 mg/dL
[2022-08-11] VITALS (7 sets, daily range): BP systolic 118–164; BP diastolic 49–88; PULSE 82–105; RESP 18–24; TEMP 36.4–37.2; O2SAT 84–99
[2022-08-11 00:09] LABS: Anion Gap 20 (12-20); Blood Urea Nitrogen 22 mg/dL (9-16); Calcium 8.5 mg/dL (8.4-10.2); Carbon Dioxide 17 mmol/L (22-29); Chloride 107 mmol/L (96-108); Estimated Glomerular Filt Rate > 60; Glucose Random 111 mg/dL (60-115); Potassium 4.8 mmol/L (3.3-5.1); Sodium 139 mmol/L (135-145)
[2022-08-11] MEDS: iohexoL 350 MG/ML 100 ML INFUS..BTL 85 ML IV (00:30)
[2022-08-11 01:01] LABS: Magnesium 2.5 mg/dL (1.6-2.6)
[2022-08-11 01:04] LABS: COVID-19 Test Negative (Negative); IDNOW Serial# BCCEAD1C
[2022-08-11 01:15] LABS: Troponin-I High Sensitivity 35.3 ng/L (<3.5-35.0)
[2022-08-11 01:15] LABS: INTERNATIONAL NORM RATIO 2.7 (0.9-1.1); Prothrombin Time 32.5 SEC (10.0-13.1)
[2022-08-11] MEDS: cefTRIAXone sodium 1 GM in 0.9 % Sodium Chloride 50 ML IV (02:05)
--- NOTE | 2022-08-11 02:11 | PM.IMHP ---
History of Present Illness Date of Service: 08/11/22 Chief Complaint: Unwitnessed fall This is a 87-year-old male with pertinent history of congestive heart failure with preserved ejection fraction, permanent atrial fibrillation on Coumadin, BPH, essential hypertension who was brought to the emergency department after an unwitnessed fall. Patient is a poor historian and unable to obtain any history from the patient. Patient is intoxicated and confused at the time of my evaluation. As per chart review and ED provider note, 87-year-old male history of heart failure, persistent atrial fibrillation anticoagulated on Coumadin, presents to the emergency department status post unwitnessed fall comes in by ambulance.? Patient intoxicated, poor historian unsure if he hit his head, unknown down time, patient is on blood thinners.? EMS found half a bottle of tri next to him partially consumed.? Patient unsure of how much she drinks.? Denies drug use.? Denies SI and HI.? Very poor historian.? Unreliable HPI and ROS Review of Systems Review of Systems: Yes Unobtainable due to mental status [facility] Medical History (Updated 08/11/22 @ 02:13 by Pola Cross MD) (HFpEF) heart failure with preserved ejection fraction Acute on chronic diastolic (congestive) heart failure BPH (benign prostatic hyperplasia) CHF (congestive heart failure) CHF (congestive heart failure) Congestive heart failure Herpes zoster, ocular HTN (hypertension) Hypertensive emergency Osteoarthritis Paroxysmal atrial fibrillation Persistent atrial fibrillation Pleural effusion Pleural effusion Pneumonitis Family History Father No problems noted. Mother No problems noted. Surgical History H/O cataract extraction History of cardioversion History of total right hip arthroplasty Status post colonoscopy with polypectomy Social History Household Members: None Housing: House Do you presently have visiting nurse or other home services: No Alcohol intake: never Patient Tobacco Use Status: Never used Tobacco Tobacco use type: Cigarette Years Smoked: 18 years e-Cigarette/Vaping Use: Never Used Advance Directives: Yes Advance Directives on File: Yes Advance Directives Date on File: 04/16/21 service: Yes (RESERVES) Current occupational status: retired Meds Allergies Allergy/AdvReac Type Severity Reaction Status Date / Time No Known Allergies Allergy Mild NOT Verified 05/25/22 21:26 APPLICABLE Active Medications: Current Medications Acetaminophen (Acetaminophen 325 Mg Tablet) 650 mg PO Q6H PRN PRN Reason: Pain, Mild (Pain Scale 1-3) Ampicillin Sodium/Sulbactam (Sodium 3 gm/ Sodium Chloride) 100 mls @ 200 mls/hr IV Q6H [facility] Melatonin (Melatonin 3 Mg Tablet) 6 mg PO BEDTIME PRN PRN Reason: Insomnia Ondansetron HCl (Ondansetron Hcl 4 Mg/2 Ml Vial) 4 mg IVPUSH Q8H PRN PRN Reason: Nausea and Vomiting Pharmacy Consult (Consult Rx Perform Med Rec) 1 each MISCELLANE ONCE PRN PRN Reason: Consult order Pharmacy Consult (Consult Rx Etoh Phenob Im/Po) 1 each MISCELLANE ONCE PRN; Protocol PRN Reason: Consult order Sodium Chloride (0.9 % Sodium Chloride Flush 3 Ml Syringe) 3 ml IVFLUSH QSHIFT [facility] Home Medications Medication Instructions Recorded Confirmed Last Taken Type finasteride 5 mg tablet 5 mg PO DAILY 08/27/20 04/17/22 12/19/21 History betamethasone dipropionate 0.05 % 1 appl topical BID 12/20/21 04/17/22 12/19/21 History lotion chlorhexidine gluconate 0.12 % 1 appl PO BID 12/20/21 04/17/22 12/19/21 History mouthwash amlodipine 5 mg tablet 10 mg PO DAILY 12/30/21 04/17/22 Unknown History Physical Exam Vital Signs and Narrative: Vital Signs: Last Vital Signs Temp 97.7 F 08/10/22 23:42 Pulse 78 08/10/22 23:42 Resp 18 08/10/22 23:42 BP 129/73 08/10/22 23:42 Pulse Ox 84 L 08/11/22 01:39 O2 Del Method 08/11/22 01:39 BMI result Body Mass Index 30.5 Middle-aged male lying in bed in no distress on 2 L supplemental oxygen Neck supple, no JVD Irregularly irregular, S1-S2 heard Decreased breath sounds at bases with crackles Abdomen soft nontender, no guarding, no rigidity Patient is drowsy and eye opening to verbal stimulus No pedal edema Results Labs CBC and Chem 7: 08/11/22 04:24 08/11/22 04:24 Labs: Laboratory Results - last 24 hr 08/10/22 08/10/22 08/10/22 23:35 23:35 23:35 MCV 98.6 H MCH 31.2 MCHC 31.7 RDW 13.4 Plt Count 184 MPV 9.6 Immature Gran % (Auto) 0.3 Neut % (Auto) 86.5 H Lymph % (Auto) 4.7 L Caswell % (Auto) 7.8 Eos % (Auto) 0.4 Baso % (Auto) 0.3 Lymph # (Auto) 0.4 L Caswell # (Auto) 0.6 Eos # (Auto) 0.0 Baso # (Auto) 0.0 Abs Immat Gran (auto) 0.02 Absolute Neuts (auto) 6.7 Absolute Nucleated RBC 0.000 Nucleated RBC % (auto) 0.0 PT INR Anion Gap 20 Estim Creat Clear Calc 60.0 Estimated GFR > 60 Random Glucose 111 Calcium 8.5 Magnesium 2.5 Total Creatine Kinase 54 D Troponin I High Sens Ethyl Alcohol 253 COVID-19 ([facility]) COVID-19 Clin Com 08/10/22 08/10/22 08/11/22 23:35 23:42 00:45 MCV MCH MCHC RDW Plt Count MPV Immature Gran % (Auto) Neut % (Auto) Lymph % (Auto) Caswell % (Auto) Eos % (Auto) Baso % (Auto) Lymph # (Auto) Caswell # (Auto) Eos # (Auto) Baso # (Auto) Abs Immat Gran (auto) Absolute Neuts (auto) Absolute Nucleated RBC Nucleated RBC % (auto) PT 32.5 H INR 2.7 H Anion Gap Estim Creat Clear Calc Estimated GFR Random Glucose Calcium Magnesium Total Creatine Kinase Troponin I High Sens 35.3 H Ethyl Alcohol COVID-19 ([facility]) Negative COVID-19 Clin Com See Note Imaging Radiologist's Impressions: Impressions Abdomen/Pelvis CT 08/11/22 00:25 IMPRESSION: CT of the chest, abdomen and pelvis: *No acute traumatic abnormalities identified. *Small right pleural effusion. *Small number of scattered pulmonary nodules ranging in size up to 6 mm diameter. Per the 2017 revised Fleischner Society guidelines, in low-risk patients recommend follow-up CT at 3-6 months and consideration of subsequent CT at 18-24 months. In patients at high-risk for pulmonary neoplasm, recommend follow-up CT at 3-[address] at 18-24 months. *Mild-moderate centrilobular emphysema. *Mild bibasilar posterior dependent peribronchial wall thickening. Findings could represent mild aspiration pneumonitis. *Cholelithiasis. Cervical Spine CT 08/11/22 00:25 IMPRESSION: CT HEAD: 1. No acute abnormalities. 2. Diffuse parenchymal volume loss the brain unchanged compared with 07/03/2022. 3. 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 CT CERVICAL SPINE: 1. No acute abnormalities. 2. Multilevel chronic spondylosis. 3. Moderate bilateral carotid bulb calcific atherosclerosis. Chest CT 08/11/22 00:25 IMPRESSION: CT of the chest, abdomen and pelvis: *No acute traumatic abnormalities identified. *Small right pleural effusion. *Small number of scattered pulmonary nodules ranging in size up to 6 mm diameter. Per the 2017 revised Fleischner Society guidelines, in low-risk patients recommend follow-up CT at 3-6 months and consideration of subsequent CT at 18-24 months. In patients at high-risk for pulmonary neoplasm, recommend follow-up CT at 3-[address] at 18-24 months. *Mild-moderate centrilobular emphysema. *Mild bibasilar posterior dependent peribronchial wall thickening. Findings could represent mild aspiration pneumonitis. *Cholelithiasis. Head CT 08/11/22 00:25 IMPRESSION: CT HEAD: 1. No acute abnormalities. 2. Diffuse parenchymal volume loss the brain unchanged compared with 07/03/2022. 3. 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 CT CERVICAL SPINE: 1. No acute abnormalities. 2. Multilevel chronic spondylosis. 3. Moderate bilateral carotid bulb calcific atherosclerosis. Assessment and Plan (1) Hypoxia: Status: Acute (2) Aspiration pneumonia: Status: Acute (3) Alcohol intoxication: Status: Acute (4) Fall: Status: Acute (5) Persistent atrial fibrillation: Status: Acute (6) (HFpEF) heart failure with preserved ejection fraction: Status: Acute (7) BPH (benign prostatic hyperplasia): Status: Acute (8) HTN (hypertension): Status: Acute Plan This is a 87-year-old male with pertinent history of congestive heart failure with preserved ejection fraction, permanent atrial fibrillation on Coumadin, BPH, essential hypertension who was brought to the emergency department after an unwitnessed fall. #. Acute hypoxemic respiratory failure due to: #. Aspiration pneumonitis/pneumonia -will admit patient and initiate IV empiric Unasyn. Blood cultures were obtained in the ER. NPO until speech evaluation #. Acute alcohol intoxication -initiate timing and folic acid. Monitor CIWA. High risk for withdrawal, placed on phenobarb protocol -consulted CARE team and Addiction Team #. Acute toxic encephalopathy due to above -monitor mentation over time #. Elevated troponin, likely type 2 in the setting of increased demand #. Persistent atrial fibrillation on Coumadin. Rate controlled in the ER. Continue home beta-kathleen #. Congestive heart failure with preserved ejection fraction: Compensated at the time of admission. Continue home medications #. BPH: On finasteride #. Essential hypertension: Continue home antihypertensives Med rec pending DVT prophylaxis: On Coumadin NPO until speech evaluation Full code Admit as inpatient and will require two night minimum hospital stay for supplemental oxygen and IV antibiotics Quality Stroke Does the patient have a stroke diagnosis?: No VTE Prior VTE?: No VTE Risk Level:: Medical - moderate - high VTE Device Contraindication: Treatment Not Indicated VTE Drug Contraindication: N/A - Med Ordered
[2022-08-11 02:42] LABS: Lactic Acid 2.3 mmol/L (0.5-2.0)
[2022-08-11 02:43] LABS: Troponin-I High Sensitivity 26.8 ng/L (<3.5-35.0)
[2022-08-11] MEDS: Ampicillin Sodium/Sulbactam Na 3 GM in 0.9 % Sodium Chloride 100 ML IV ×4 (03:31→22:06)
[2022-08-11] MEDS: PHENobarbitaL sodium 130 MG/ML IM ONCE 170.4 MG IM (03:34)
[2022-08-11 03:45] LABS: Appearance Urine Clear; Color Urine Yellow; Glucose Urine UA Negative (Negative); Leukocyte Esterase Urine Negative (Negative); Nitrite Urine Negative (Negative); Specific Gravity - Urine >= 1.030 (1.005-1.025); Urine Blood Negative (Negative); Urine Ketones Negative (Negative); Urine Protein Negative (Neg-Trace)
[2022-08-11 03:46] LABS: Amphetamine Screen Urine Not Detected (Not Detect); Barbiturates, Urine Not Detected (Not Detect); Benzodiazepines Screen Urine Not Detected (Not Detect); Cannabinoid Screen Urine Not Detected (Not Detect); Cocaine Screen Urine Not Detected (Not Detect); Fentanyl, urine Not Detected (Not Detect); Opiate Screen Urine Not Detected (Not Detect); Phencyclidine Screen Urine Not Detected (Not Detect)
--- NOTE | 2022-08-11 03:57 | PC.NURSE ---
Addendum entered by Palmira Del Valle RN 08/11/22 07:07: Report given to ISABEL Fitzpatrick Original Note: Dr. Cross made aware of critical lactic of 2.3. pt assisted with the urinal, incontinent of stool, incontinent care provided
[2022-08-11 04:04] LABS: Reflex Lactate? Lactic Acid Added
[2022-08-11 04:28] LABS: MANUAL DIFF FLAG NO
[2022-08-11 04:29] LABS: Basophils Percent Auto 0.3 % (0-2); Eosinophils Percent Auto 0.3 % (0-4); Hematocrit 30.3 % (42.0-52.0); Hemoglobin 9.7 g/dl (14.0-18.0); Imm Gran Abs Auto 0.02 X10*3/uL (0.00-0.03); Imm Gran Pct Auto 0.3 % (0.0-0.4); Lymphocytes Absolute Auto 0.6 X10*3/uL (1.2-4.9); Lymphocytes Percent Auto 8.4 % (20-40); Mean Corpuscular Hemoglobin 31.4 pg (27.0-33.0); Mean Corpuscular Volume 98.1 fL (80.0-98.0); Mean Platelet Volume 9.4 fL (9.4-12.4); Monocytes Absolute Auto 0.8 X10*3/uL (0.1-1.2); Monocytes Percent Auto 11.8 % (2-11); Neutrophils Absolute Auto 5.6 x10*3/uL (2.0-8.3); Neutrophils Percent Auto 78.9 % (45-73); Platelet Count 154 X10*3/uL (160-400); Red Blood Count 3.09 X10*6/uL (4.60-5.80); Red Cell Distribution Width 13.4 % (11.0-16.0)
[2022-08-11 04:53] LABS: Anion Gap 14 (12-20); Blood Urea Nitrogen 19 mg/dL (9-16); Calcium 8.2 mg/dL (8.4-10.2); Carbon Dioxide 25 mmol/L (22-29); Chloride 107 mmol/L (96-108); Creatinine Clr Calc Pharmacy 62.6; Estimated Glomerular Filt Rate > 60; Glucose Random 114 mg/dL (60-115); Sodium 142 mmol/L (135-145)
[2022-08-11] MEDS: PHENobarbitaL sodium 130 MG/ML VIAL IM Q3Hx2 127.8 MG IM ×2 (06:04→08:32)
--- NOTE | 2022-08-11 07:26 | PHA.MEDREC ---
Pharmacy Consult ? Medication Reconciliation Pharmacy has completed the medication reconciliation. Patient is aware of the names of the medications he takes but seems to be confused about if he's actually still taking them or not. Compiled medication list from what patient says he takes and also using fill history. He states he is on metoprolol AND atenolol but there is no recent fill of atenolol within the last year and he says he only uses the one pharmacy. As he only gets metoprolol through the pharmacy, that is the one I entered in on his current medication list.
[2022-08-11] MEDS: Thiamine HCL 100 MG in 0.9 % Sodium Chloride 100 ML 202 MG IV (08:27)
[2022-08-11] MEDS: 0.9 % Sodium Chloride Flush 3 ML SYRINGE IVFLUSH ×3 (08:33→22:06)
[2022-08-11] MEDS: Folic Acid 1 MG TABLET PO (08:33)
--- NOTE | 2022-08-11 08:45 | MHC.CM.PN ---
Addendum entered by Juliet Jeong 08/11/22 08:52: PT REFUSED TO RECEIVE A COPY OF HIS IMM STATING, I DON'T NEED THAT CRAP, I ALREADY KNOW WHAT IT SAYS Addendum entered by Juliet Jeong 08/11/22 08:47: PT HAS BEEN [facility]ST REFERRALS OUT TO [facility] AND [facility] Original Note: PT RE[PORTS HE LIVES ALONE AND IS INDEPENDENT WITH CARE PT DENIES USE OF DME OR HAVING HOME/COMMUNITY SERVICES PT IS COVID VAX AND BOOSTED HCP ON FILE PCP: VONNIE MORRISON IMM DELIVERED, COPY SENT TO [facility] CURRENTLY DC PLAN IS TBD PENDING PT EVAL HOME VS HOME WITH PT OR STR FAMILY TO TRANSPORT
--- NOTE | 2022-08-11 13:27 | MHC.RECOVRN ---
Chart reviewed and discussed with pts RN. Pt asleep, resting comfortably. Will follow up with pt tomorrow. Discussed with Sheri Sarkar APRN.
[2022-08-11] MEDS: Warfarin Sodium 5 MG TABLET PO (13:40)
[2022-08-11] MEDS: Metoprolol Succinate ER 100 MG TAB.ER.24H PO (13:40)
--- NOTE | 2022-08-11 17:57 | MHC.SL.SWA ---
Speech Pathologist Impression: Risk of Aspiration Due to: History of Pneumonia Dysphasia Diet Status: Mild oral phase dysphagia due to unusual behavior noted with puree. Liquid Consistency and Strategies for Safe Swallow: Liquid Intake Recommendation: Thin Liquid Intake Strategies: Unrestricted Solid Food Consistency: Dietary Recommendations: Regular Additional Modifications to Solid Foods: Patient is able to independently feed self, but may need some initial supervision to assure that he is oriented to meal and able to access a food and drink appropriately Oral Medication Intake: Whole with Liquid Please contact the pharmacy regarding appropriate crushable or liquid drug formulations that are available whenever modified delivery is recommended. Compensatory Strategies and Precautions to be Taken for Safe Swallow: Sitting Upright (90 deg) Small Bites and Sips Alternate Liquids/Solids Supervision While Eating and Drinking for Safe Swallow: Intermittent Supervision Foods to Avoid: Swallowing Recommended Treatments: Compens. Strategy Educat. Recommendation for Speech: Inpatient Speech Therapy Comment: Patient presents with oral motor function and swallow mostly WFL. Patient had unusual behavior of chewing puree today when assessed, was aware he was doing this but couldn't adjust the behavior even though self aware. Patient otherwise produced timely swallow on thin liquids and regular consistencies with no clinical signs of aspiration. Recommend START diet of REGULAR with THIN liquids, pills whole with liquid. Patient may need some initial supervision with his meals, assuring he can access all food and liquid on tray and is progressing independently with meal. Recommend VEHICLE DYNAMICS ENGINEER f/u X1 for toleration of recommended diet. Frequency/Duration: Date Range for Service Req: Timeline to reassess: Speech Language Pathologist Assistant Clinican/Clinical Fellow: No Supervisory Statement: I have reviewed and agree with the student/clinical fellow's documentation: N/A Speech Language Pathologist: Helen Arizmendi M.A., [facility]-VEHICLE DYNAMICS ENGINEER
--- NOTE | 2022-08-11 20:07 | PC.NURSE ---
this pct assumed care of pt at 1999 ,vital sign taken ,patient got moved from stretcher to bed .
--- NOTE | 2022-08-11 20:10 | PC.NURSE ---
Attempted to call report to [address] [place] [address] was told they would call back.
[2022-08-11] MEDS: Chlorhexidine Gluc Oral Rinse 15 ML MOUTHWASH BUCCAL (22:06)
[2022-08-11] MEDS: PHENobarbitaL 15 MG TABLET 45 MG PO (22:06)
[2022-08-12] MEDS: Ampicillin Sodium/Sulbactam Na 3 GM in 0.9 % Sodium Chloride 100 ML IV ×4 (03:44→20:11)
[2022-08-12 04:00] VITALS: BP 164/88; PULSE 91; RESP 16; TEMP 36.5; O2SAT 93
[2022-08-12 07:59] VITALS: BP 169/93; PULSE 86; RESP 18; TEMP 37; O2SAT 94
[2022-08-12] MEDS: Finasteride 5 MG TABLET PO (08:10)
[2022-08-12] MEDS: Chlorhexidine Gluc Oral Rinse 15 ML MOUTHWASH BUCCAL ×2 (08:10→20:11)
[2022-08-12] MEDS: Warfarin Sodium 5 MG TABLET PO (08:11)
[2022-08-12] MEDS: PHENobarbitaL 15 MG TABLET 45 MG PO ×2 (08:11→20:11)
[2022-08-12] MEDS: Folic Acid 1 MG TABLET PO (08:12)
[2022-08-12] MEDS: Metoprolol Succinate ER 100 MG TAB.ER.24H PO (08:12)
[2022-08-12] MEDS: 0.9 % Sodium Chloride Flush 3 ML SYRINGE IVFLUSH ×3 (08:13→20:12)
[2022-08-12] MEDS: Loratadine 10 MG TABLET PO (08:20)
[2022-08-12] MEDS: Thiamine HCL 100 MG in 0.9 % Sodium Chloride 100 ML 202 MG IV (08:24)
--- NOTE | 2022-08-12 10:08 | P.PNIM_ITS ---
Subjective Subjective Date of Service: 08/12/22 Interval History: Seen in f/u for aspiration pneumonia, fall interval history: he is coughing less and overall feels better, no signs of alco hol withdrawal Review of Systems +cough, no sob no dizziness no chest pain Physical Exam Vital Signs: Vital Signs: Last Vital Signs Temp 98.6 F 08/12/22 07:59 Pulse 86 08/12/22 07:59 Resp 18 08/12/22 07:59 BP 169/93 H 08/12/22 07:59 Pulse Ox 94 08/12/22 07:59 O2 Del Method 08/12/22 07:59 O2 Flow Rate 2 08/11/22 06:01 BMI result Body Mass Index 30.5 Const: Other: General: AO X 3, no acute distress Resp: normal resp effort, rhonchi CVS: S1,S2,RRR GI: +BS, NT, no distention Skin: No rash Neuro: motor grossly intact Psych: appropriate affect Objective Data Active Medications Acetaminophen (Acetaminophen 325 Mg Tablet) 650 mg PO Q6H PRN PRN Reason: Pain, Mild (Pain Scale 1-3) Chlorhexidine Gluconate (Chlorhexidine Gluc Oral Rinse 15 Ml Mouthwash) 15 ml BUCCAL BID [facility] Last Admin: 08/12/22 08:10 Dose: 15 ml Documented By: YUNIOR Finasteride (Finasteride 5 Mg Tablet) 5 mg PO DAILY [facility] Last Admin: 08/12/22 08:10 Dose: 5 mg Documented By: YUNIOR Folic Acid (Folic Acid 1 Mg Tablet) 1 mg PO DAILY [facility] Last Admin: 08/12/22 08:12 Dose: 1 mg Documented By: YUNIOR Ampicillin Sodium/Sulbactam (Sodium 3 gm/ Sodium Chloride) 100 mls @ 200 mls/hr IV Q6H [facility] Last Infusion: 08/12/22 09:29 Dose: 0 mls/hr Documented By: YUNIOR Thiamine HCl 100 mg/ Sodium (Chloride) 101 mls @ 202 mls/hr IV DAILY [facility] Last Infusion: 08/12/22 09:56 Dose: 0 mls/hr Documented By: YUNIOR Loratadine (Loratadine 10 Mg Tablet) 10 mg PO DAILY [facility] Last Admin: 08/12/22 08:20 Dose: 10 mg Documented By: YUNIOR Melatonin (Melatonin 3 Mg Tablet) 6 mg PO BEDTIME PRN PRN Reason: Insomnia Metoprolol Succinate (Metoprolol Succinate Er 100 Mg Tab.Er.24h) 100 mg PO DAILY [facility]; Protocol Last Admin: 08/12/22 08:12 Dose: 100 mg Documented By: YUNIOR Ondansetron HCl (Ondansetron Hcl 4 Mg/2 Ml Vial) 4 mg IVPUSH Q8H PRN PRN Reason: Nausea and Vomiting Pharmacy Consult (Consult Rx Perform Med Rec) 1 each MISCELLANE ONCE PRN PRN Reason: Consult order Pharmacy Consult (Consult Rx Etoh Phenob Im/Po) 1 each MISCELLANE ONCE PRN; Protocol PRN Reason: Consult order Phenobarbital (Phenobarbital 15 Mg Tablet) 45 mg PO BID [facility]; Protocol Stop: 08/13/22 09:01 Last Admin: 08/12/22 08:11 Dose: 45 mg Documented By: YUNIOR Phenobarbital (Phenobarbital 30 Mg Tablet) 30 mg PO BID [facility]; Protocol Stop: 08/15/22 09:01 Phenobarbital (Phenobarbital 30 Mg Tablet) 30 mg PO DAILY [facility]; Protocol Stop: 08/17/22 09:01 Sodium Chloride (0.9 % Sodium Chloride Flush 3 Ml Syringe) [facility] Last Admin: 08/12/22 08:13 Dose: 3 ml Documented By: YUNIOR Warfarin Sodium (Warfarin Sodium 5 Mg Tablet) 5 mg PO DAILY [facility] Last Admin: 08/12/22 08:11 Dose: 5 mg Documented By: YUNIOR Labs CBC & Chem 7: 08/11/22 04:24 08/11/22 04:24 Microbiology Microbiology Results: Microbiology 08/11/22 02:12 Blood Culture - Preliminary Blood - Venous No growth after 24 hours. 08/11/22 02:01 Blood Culture - Preliminary Blood - Venous No growth after 24 hours. Assessment and Plan (1) Aspiration pneumonia: Status: Acute Plan 87-year-old male with pertinent history of congestive heart failure with preserved ejection fraction, permanent atrial fibrillation on Coumadin, BPH, essential hypertension who was brought to the emergency department after an unwitnessed fall. #. Acute hypoxemic respiratory failure due to: #. Aspiration pneumonitis/pneumonia -clinically better, normal O2 on room, no fever -Unasyn for 1 more day then transition to oral Augmenti #. Acute alcohol intoxication--no withdrawal symptoms -continue Phenobarbital #. Acute toxic encephalopathy--resolved. #. Elevated troponin, likely type 2 in the setting of increased demand #. Persistent atrial fibrillation on Coumadin. Rate controlled in the ER. Continue home beta-kathleen #. Congestive heart failure with preserved ejection fraction: Compensated at the time of admission. Continue home medications #. BPH: On finasteride #. Essential hypertension: Continue home antihypertensives Med rec pending DVT prophylaxis: On Coumadin NPO until speech evaluation Full code Need for inaptient: Aspiration pneumonia, needing IV Abx, alcoholol withdrawal being treated with Phenobarbital and being closely monitored in way that cannot be done in less acute setting at this time Quality Stroke Does the patient have a stroke diagnosis?: No VTE Prior VTE?: No VTE Risk Level:: Medical - moderate - high VTE Device Contraindication: Treatment Not Indicated VTE Drug Contraindication: N/A - Med Ordered
[2022-08-12 10:34] LABS: INTERNATIONAL NORM RATIO 4.4 (0.9-1.1); Prothrombin Time 53.9 SEC (10.0-13.1)
--- NOTE | 2022-08-12 14:25 | MHC.RECOVRN ---
Attempted to meet with pt, pt asleep. Recovery resources, including [facility], and information regarding local supports left at bedside. T/w contact information provided if pt would like to discuss AUD tx further.
[2022-08-12 16:00] VITALS: BP 135/96; PULSE 95; RESP 17; TEMP 36.8; O2SAT 95
--- NOTE | 2022-08-12 16:38 | PM.EVENT ---
Event Note Date of Service: 08/12/22 Event Note: Addiction Consult for Alcohol use Please see Recovery Support RN note from 08/12/2022
[2022-08-12 19:59] VITALS: BP 141/90; PULSE 74; RESP 17; TEMP 37.1; O2SAT 95
[2022-08-13 03:37] VITALS: BP 158/80; PULSE 83; RESP 16; TEMP 36.3; O2SAT 95
[2022-08-13] MEDS: Ampicillin Sodium/Sulbactam Na 3 GM in 0.9 % Sodium Chloride 100 ML IV ×2 (04:20→08:10)
[2022-08-13 06:40] LABS: INTERNATIONAL NORM RATIO 3.7 (0.9-1.1); Prothrombin Time 44.4 SEC (10.0-13.1)
[2022-08-13 06:54] VITALS: BP 170/90; PULSE 77; RESP 18; TEMP 36.1; O2SAT 97
[2022-08-13] MEDS: Loratadine 10 MG TABLET PO (08:10)
[2022-08-13] MEDS: PHENobarbitaL 15 MG TABLET 45 MG PO (08:10)
[2022-08-13] MEDS: 0.9 % Sodium Chloride Flush 3 ML SYRINGE IVFLUSH (08:10)
[2022-08-13] MEDS: Finasteride 5 MG TABLET PO (08:10)
[2022-08-13] MEDS: Metoprolol Succinate ER 100 MG TAB.ER.24H PO (08:10)
[2022-08-13] MEDS: Folic Acid 1 MG TABLET PO (08:10)
[2022-08-13] MEDS: Chlorhexidine Gluc Oral Rinse 15 ML MOUTHWASH BUCCAL (08:10)
--- NOTE | 2022-08-13 09:01 | PM.DS ---
DS: Providers Provider Date of Service: 08/13/22 Date of admission: 08/11/22 02:07 Primary care physician: Marcos Maurer MD Consults: 08/11/22 01:24 Consult to Care Team Stat Comment: Reason for consultation: sude 08/11/22 02:09 Addiction Medicine Routine Consulting Provider: Addiction Covering Reason for consultation: alcohol use disorder Consult to Care Team Routine Comment: Reason for consultation: alcohol use disorder DS: Diagnosis Discharge Diagnosis (1) Aspiration pneumonia: Status: Resolved DS: Summary Hospital Course Hospital Course: Chief Complaint: Unwitnessed fall This is a 87-year-old male with pertinent history of congestive heart failure with preserved ejection fraction, permanent atrial fibrillation on Coumadin, BPH, essential hypertension who was brought to the emergency department after an unwitnessed fall.? Patient is a poor historian and unable to obtain any history from the patient.? Patient is intoxicated and confused at the time of my evaluation. As per chart review and ED provider note, 87-year-old male history of heart failure, persistent atrial fibrillation anticoagulated on Coumadin, presents to the emergency department status post unwitnessed fall comes in by ambulance.? Patient intoxicated, poor historian unsure if he hit his head, unknown down time, patient is on blood thinners.? EMS found half a bottle of tri next to him partially consumed.? Patient unsure of how much she drinks.? Denies drug use.? Denies SI and HI.? Very poor historian.? Unreliable HPI and ROS Hospital course: He presented with with unwitnessed fall, he states he didn't pass out. He was noted to be hypoxic at one time O2 sat in 80 and noted to have pneumonia presumed to be aspiration related. He has been treated with Unasyn for aspiration pneumonia, hypoxia has resolved and saturating 97 on room air. Will transition to oral Augmentin for total of 7 days of antibiotics #.? Acute alcohol intoxication--no withdrawal symptoms, treated with phenobarbital, alcohol cessation discussed at lent #.? Acute toxic encephalopathy due to alcohol intiaoxication--resolved. #.? Elevated troponin, likely type 2 in the setting of increased demand, no evidence of ACS #.? Persistent atrial fibrillation on Coumadin.?continue beta kathleen and coumadin, INR has been on hold but can resume tomorrow #.? Congestive heart failure with preserved ejection fraction:? Compensated at the time of admission.? Continue home medications #.? BPH: On finasteride #.? Essential hypertension:? Continue home antihypertensives Time Spent with Patient Time attestation: Total time spent providing and/or coordinating discharge services: Discharge coordination time: Greater than 30 minutes Quality: Safe Use of Opioids Does Pt have an Active Cancer Diagnosis on the Problem List?: No Quality: Stroke Does the patient have a stroke diagnosis?: No Physical Exam Vital Signs: Vital Signs: Last Vital Signs Temp 97 F 08/13/22 06:54 Pulse 77 08/13/22 06:54 Resp 18 08/13/22 06:54 BP 170/90 H 08/13/22 06:54 Pulse Ox 97 08/13/22 06:54 O2 Del Method 08/13/22 06:54 O2 Flow Rate 2 08/11/22 06:01 BMI result Body Mass Index 30.5 Const: Other: General: AO X 3, no acute distress Resp: CTA bilateral CVS: S1,S2,RRR GI: +BS, NT, no distention Skin: No rash Neuro: motor grossly intact Psych: appropriate affect DS: Data Data Completed and Pending Labs on day of discharge: Laboratory Results - last 24 hr 08/12/22 08/13/22 10:22 05:32 PT 53.9 H 44.4 H INR 4.4 H 3.7 H Preliminary micro results at discharge 08/11/22 02:12 Blood Culture - Preliminary Blood - Venous No growth after 48 hours. 08/11/22 02:01 Blood Culture - Preliminary Blood - Venous No growth after 48 hours. Discharge Plan Discharge Anticipated Discharge Date/Time: 08/13/22 09:17 Patient Disposition: Home Health Service Discharge Diagnosis: fall, alcohol intoxication, aspiration pneumonia Referrals: Marcos Maurer MD [Primary Care Provider] - 2 days Discharge Medications: New amoxicillin-pot clavulanate 875-125 mg Tablet 875 mg PO Q12H Qty: 9 0RF Continued chlorhexidine gluconate 0.12 % mouthwash 1 appl PO BID warfarin [Jantoven] 5 mg tablet 5 mg PO DAILY metoprolol succinate 100 mg tablet extended release 24 hr 100 mg PO DAILY loratadine 10 mg Tablet 10 mg PO DAILY finasteride 5 mg tablet 5 mg PO DAILY Discharge Orders: Discharge Order (Routine); Ordered 08/13/22 Ordered By: Angel Churchill Diet: Advance to usual diet Activity on Discharge: As tolerated Stand Alone Forms: Patient Portal Discharge page Activity Restrictions/Additional Instructions: Take your medications as prescribed. If you were prescribed antibiotics today, it is important that you take your medication to their entirety, do not skip any doses, do not finish them early. Follow-up with your primary care provider this week. Return to the emergency department with new or worsening symptoms. Such as fevers, chills, chest pain, shortness of breath, nausea, vomiting, dizziness, headache, vision changes, lethargy In case of emergency call 911 Drinking on a blood thinner is extremely dangerous. Do not take coumadin, have INR check tomorrow and coumadin adjusted Care Plan Goals: Full recovery from fall, pneumonia Health Concerns: pneumonia fall alcohol use desorder Plan of Treatment: take Augmentin as directed for pneumonia avoid alcohol use desorder Do not take coumadin today Assessment: as Patient Instructions: Concussion (ED), Alcohol Intoxication (ED), Post Concussion Syndrome (ED), Fall Prevention (ED), Laceration Without Closure (ED) Discharge Date/Time: 08/13/22 13:48
[2022-08-13 09:04] VITALS: BP 170/90; PULSE 77; O2SAT 97
[2022-08-13] MEDS: Amoxicillin/Potassium Clav 875 MG TABLET PO (10:38)
--- NOTE | 2022-08-13 11:37 | W.MHC.F2F ---
Service Date Service Date: 08/13/22 Encounter Date of encounter: 08/13/22 Encounter: fall, weakness, pneumonia Reasons for Services Signs and symptoms assessed: weakness, pneumonia Homebound: Leaving the home is medically contraindicated at this time without the asist of a device and/or another person due th the listed conditions above and below. Reason homebound: fall risk related to blood pressure changes Homebound supporting statement: homebound due to tendency for fall, recent hospitalization weakness from pneumonia and therefore needs the assistance of another person' Certification: Based on the above findings, I certify that this patient is confined to the home and needs intermittent senior living care, physical therapy and/or speech therapy, or continues to need occupational therapy. The patient is under my care, and I have initiated the establishment of the plan of care. The patient will be followed by a physician who will periodically review the plan of care.
[2022-08-13 12:00] VITALS: BP 140/90
== END 2022-08-13 13:48 | disposition home health service (06) | DRG 177 ==
LOC: HO.ED 08-11 01:36 → HO.EDOVER 08-11 02:12 → HO.S3 08-11 19:58
PROVIDERS: Emergency Medicine; Physician Assistant; Admitting Provider Student in an Organized Health Care Education/Training Program; Emergency Provider Emergency Medicine; PCP Internal Medicine; Visit Provider Internal Medicine
DX: J69.0 Pneumonitis due to inhalation of food and vomit (principal); G92.9 Unspecified toxic encephalopathy; I50.33 Acute on chronic diastolic (congestive) heart failure; J96.01 Acute respiratory failure with hypoxia; I48.19 Other persistent atrial fibrillation; I24.8 Other forms of acute ischemic heart disease; N40.0 Benign prostatic hyperplasia without lower urinary tract symptoms; Y90.8 Blood alcohol level of 240 mg/100 ml or more; F10.129 Alcohol abuse with intoxication, unspecified; I11.0 Hypertensive heart disease with heart failure; Z20.822 Contact with and (suspected) exposure to COVID-19; Z96.641 Presence of right artificial hip joint; Z79.01 Long term (current) use of anticoagulants; Z79.899 Other long term (current) drug therapy
CPT/HCPCS: 36415; 70450; 71260; 72125; 74177; 80048; 80307; 81003; 82077; 82550; 83605; 83735; 84484; 85025; 85610; 87040; 87635; 92526; 92610; 93005; 97162; 99285; J0295; J0696; J2560; J3411; Q9967

== ENCOUNTER 2022-09-04 13:08 | Outpatient (REF) | payer MEDICARE, SELFPAY ==
[2022-09-04 13:22] LABS: MANUAL DIFF FLAG NO
[2022-09-04 13:49] LABS: Basophils Percent Auto 0.5 % (0-2); Eosinophils Absolute Auto 0.1 X10*3/uL (0.0-0.4); Eosinophils Percent Auto 0.6 % (0-4); Hematocrit 34.6 % (42.0-52.0); Hemoglobin 10.7 g/dl (14.0-18.0); Imm Gran Abs Auto 0.04 X10*3/uL (0.00-0.03); Imm Gran Pct Auto 0.5 % (0.0-0.4); Lymphocytes Absolute Auto 0.8 X10*3/uL (1.2-4.9); Lymphocytes Percent Auto 8.9 % (20-40); Mean Corpuscular HGB Conc 30.9 g/dl (31.0-36.0); Mean Corpuscular Hemoglobin 30.3 pg (27.0-33.0); Monocytes Absolute Auto 0.8 X10*3/uL (0.1-1.2); Monocytes Percent Auto 9.7 % (2-11); Neutrophils Absolute Auto 6.7 x10*3/uL (2.0-8.3); Neutrophils Percent Auto 79.8 % (45-73); Platelet Count 228 X10*3/uL (160-400); Red Blood Count 3.53 X10*6/uL (4.60-5.80); Red Cell Distribution Width 14.2 % (11.0-16.0); White Blood Count 8.4 X10*3/uL (4.8-10.8)
[2022-09-04 13:53] LABS: INTERNATIONAL NORM RATIO 1.2 (0.9-1.1); Prothrombin Time 13.8 SEC (10.0-13.1)
[2022-09-04 14:25] LABS: Alanine Aminotransferase 12 U/L (0-40); Albumin Level 4.3 g/dL (3.5-5.0); Alkaline Phosphatase 107 U/L (39-117); Anion Gap 15 (12-20); Aspartate Amino Transferase 19 U/L (5-37); Bilirubin Total 0.9 mg/dL (0.0-1.0); Blood Urea Nitrogen 21 mg/dL (9-16); Calcium 9.4 mg/dL (8.4-10.2); Carbon Dioxide 28 mmol/L (22-29); Chloride 103 mmol/L (96-108); Estimated Glomerular Filt Rate 60; Glucose Random 110 mg/dL (60-115); Potassium 5.1 mmol/L (3.3-5.1); Sodium 141 mmol/L (135-145); Total Protein 7.6 g/dL (6.5-8.0)
== END 2022-09-04 13:09 | disposition home or self-care (01) ==
LOC: HO.LAB 13:08
PROVIDERS: Visit Provider Internal Medicine
DX: I48.91 Unspecified atrial fibrillation (principal); I50.9 Heart failure, unspecified; Z87.01 Personal history of pneumonia (recurrent)
CPT/HCPCS: 36415; 80053; 82550; 85025; 85610

== ENCOUNTER 2022-10-08 13:25 | Outpatient (REF) | payer MEDICARE, SELFPAY ==
--- NOTE | 2022-10-08 17:35 | MHC.AU.MED ---
Medical Clearance for Hearing Instrumentation Date: 10/08/22 Patient Name: Thierry Edwards Date of : 1935 Primary Care Provider: Referring Provider: Marcos Maurer MD We have seen your patient on 10/08/22 and have determined that they are a candidate for amplification (See accompanying report). Specifically, they would benefit from: Hearing aid use in both ears There is a statute that addresses Medical Evaluation Requirements prior to fitting a patient with a hearing aid. According to [place] statute 265 CMR:6.03(1), (a) General. Except as provided in 265 CMR 6.03(1)(b), a hearing care professional shall not sell a hearing aid unless the prospective user has presented to the hearing care professional a written statement signed by a licensed physician that states that the patient's hearing loss has been medically evaluated and the patient may be considered a candidate for a hearing aid. The medical evaluation must have taken place within the preceding six months. Please note: Due to the [place] Statute referenced above, we cannot accept a signature other than that of a licensed physician. SOCIAL WORKER and PA signatures cannot be accepted. I am in agreement with the above recommendation. There is no medical contraindication for hearing instrumentation. Physician Signature Date Physician Name (Printed)
== END 2022-10-08 13:26 | disposition home or self-care (01) ==
LOC: HO.SH 13:25
PROVIDERS: Visit Provider Internal Medicine
DX: Z01.118 Encounter for examination of ears and hearing with other abnormal findings (principal); H90.3 Sensorineural hearing loss, bilateral
CPT/HCPCS: 92557

== ENCOUNTER 2022-10-08 14:34 | Outpatient (REF) | payer SELFPAY ==
--- NOTE | 2022-10-09 07:46 | MHC.AU.HA1 ---
Hearing Aid Evaluation Date of Visit: 10/08/22 Historical Information: Description of Hearing: Mild sloping to severe sensorineural hearing loss bilaterally. Current personal amplification information, if applicable: 2009 binaural Phonak Certena ART ITC Summary: Thierry's current left aid is not working, right weak. Phonak software no longer supports this model. Although right aid is not providing adequate amplification, patient would like to purchase only a new left aid at this time. Hearing Aid Prescription: Based on the individual?s shared listening needs, communication environments, dexterity, desire for connectivity, and personal preferences, the following prescription for amplification has been made: Left ear: Left ear prescription to be same as Right Hearing Aid above: Make, Model, Color: Phonak P 30 - 312Power Battery Size: 312 Head [employer] Training [employer]/Slim Tube: Power Type of Earmold/Dome/CShell/SlimTip: Plan of Care: Patient wishes to purchase hearing aids as prescribed Action Taken/Action Needed: Earmold Impressions Taken, Medical Clearance to be requested from PCP/ENT Primary Diagnosis: H90.3 Bilateral Sensorineural Hearing Loss Signature:Provider: Karlene Dave, [facility]
== END 2022-10-08 14:35 | disposition home or self-care (01) ==
LOC: HO.HAP 14:34
PROVIDERS: Visit Provider Internal Medicine
DX: Z46.1 Encounter for fitting and adjustment of hearing aid (principal); H90.3 Sensorineural hearing loss, bilateral
CPT/HCPCS: 92590

== ENCOUNTER 2022-10-14 12:18 | Outpatient (REF) | payer MEDICARE, SELFPAY ==
[2022-10-14 13:55] LABS: INTERNATIONAL NORM RATIO 4.2 (0.9-1.1); Prothrombin Time 51.7 SEC (10.0-13.1)
== END 2022-10-14 12:19 | disposition home or self-care (01) ==
LOC: HO.10HDLR 12:18
PROVIDERS: Visit Provider Internal Medicine
DX: I48.91 Unspecified atrial fibrillation (principal)
CPT/HCPCS: 36415; 85610

== ENCOUNTER 2022-11-05 09:25 | Inpatient (IN) | payer MEDICARE, SELFPAY ==
--- NOTE | ~2022-11-05 | NM_ITS ---
EXAMINATION: PULMONARY PERFUSION STUDY CLINICAL INFORMATION: Hypoxia, shortness of breath. COMPARISON: No previous lung scan is available for comparison. A radiograph the chest dated 11/05/[address] scan of the chest dated 08/11/2022 are available for comparison. TECHNIQUE: Following the intravenous injection of 4.0 mCi Tc-99m MAA, the lungs were imaged in the anterior and posterior, left and right lateral and [place], IRIZARRY, LPO, and RPO projections using a gamma scintillation camera. FINDINGS: No segmental perfusion defects are present. There is homogeneous distribution of activity bilaterally. There are no focal anatomic appearing perfusion defects present. The cardiomediastinal silhouette is dilated. NM/NM pul perfusion IMPRESSION: Very low probability of pulmonary embolism.
--- NOTE | ~2022-11-05 | US_ITS ---
EXAMINATION: US RETROPERITONEAL LIMITED (RENAL ONLY) CLINICAL INFORMATION: HPI.. COMPARISON: None TECHNIQUE: Routine grayscale imaging of kidneys is performed. FINDINGS: RIGHT KIDNEY: 12.0 x 5.5 x 4.9 cm (SAG x AP x TRV). The kidney is normal in size, contour, and echogenicity. There is mild cortical thinning. There are 3 anechoic cysts with the largest cyst midpole measuring 1.6 x 1.0 x 1.2 cm. There is mild caliectasis. LEFT KIDNEY: 12.5 x 5.6 x 4.3 cm (SAG x AP x TRV). The kidney is normal in size, contour, and echogenicity. There is mild cortical thinning. No calculi or focal parenchymal lesions. No hydronephrosis. US/US renal BI IMPRESSION: 1. There are 3 cysts in the right kidney. 2. There is mild caliectasis right kidney. 3. There is mild cortical thinning left kidney. 4. There are no echogenic stones or hydronephrosis in either kidney.
--- NOTE | ~2022-11-05 | XR_ITS ---
EXAMINATION: XR CHEST CLINICAL INFORMATION: Shortness of breath. COMPARISON: 12/20/2021 chest radiograph. TECHNIQUE: Frontal view of the chest was obtained. FINDINGS: No significant abnormality is noted involving the heart, lungs, mediastinum, bony thorax or soft tissues. XR/XR chest 1V IMPRESSION: No acute cardiopulmonary process.
--- NOTE | 2022-11-05 09:39 | ECG_ITS ---
Test Reason : sob Blood Pressure : / mmHG Vent. Rate : 071 BPM Atrial Rate : 077 BPM P-R Int : 000 ms QRS Dur : 176 ms QT Int : 466 ms P-R-T Axes : 000 -74 -05 degrees QTc Int : 506 ms Atrial fibrillation Left axis deviation Right bundle branch block Anteroseptal infarct , age undetermined Abnormal ECG When compared with ECG of 10-AUG-2022 23:54, QRS axis Shifted left Anteroseptal infarct is now Present Referred By: Hoda Rodriguez Electronically Signed By:PERICO BHARDWAJ MD
--- NOTE | 2022-11-05 09:45 | ED_ITS ---
HPI - SOB/Dyspnea General Chief Complaint: Dyspnea Stated Complaint: SOB X2 DAYS,FEELS PHLEGM IN THROAT PER EMS Time Seen by Provider: 11/05/22 09:38 Source: patient Mode of arrival: EMS History of Present Illness HPI Narrative: 87-year-old male with history of heart failure presents with worsening shortness of breath over the past couple of days but denies any cough, chest pain, GI or symptoms and denies any fever chills. Patient states he has continued to take his medications as prescribed. Related Data Home Medications Medication Instructions Recorded Confirmed metoprolol succinate 100 mg 100 mg PO DAILY 08/11/22 11/05/22 tablet,extended release 24 hr warfarin 5 mg tablet (Jantoven) 10 mg PO MOTUWETHFR 08/11/22 11/05/22 amlodipine 10 mg tablet 1 tab PO DAILY 11/05/22 11/05/22 betamethasone dipropionate 0.05 % 1 appl topical BID PRN Rash 11/05/22 11/05/22 lotion furosemide 40 mg tablet 1 tab PO DAILY PRN Edema 11/05/22 11/05/22 warfarin 5 mg tablet (Jantoven) 5 mg PO SUSA 11/05/22 11/05/22 Allergies Allergy/AdvReac Type Severity Reaction Status Date / Time No Known Allergies Allergy Mild NOT Verified 11/05/22 10:02 APPLICABLE Review of Systems 2 Review of Systems: Pertinent positives and negatives as stated in HPI FOR[facility]LY [facility] Past Medical History Source: nursing notes reviewed Medical History (HFpEF) heart failure with preserved ejection fraction Acute on chronic diastolic (congestive) heart failure BPH (benign prostatic hyperplasia) CHF (congestive heart failure) CHF (congestive heart failure) Congestive heart failure Herpes zoster, ocular HTN (hypertension) Hypertensive emergency Osteoarthritis Paroxysmal atrial fibrillation Persistent atrial fibrillation Pleural effusion Pleural effusion Pneumonitis Surgical History H/O cataract extraction History of cardioversion History of total right hip arthroplasty Status post colonoscopy with polypectomy Family History Family History Father No problems noted. Mother No problems noted. Social History Social History Household Members: None Housing: House Do you presently have visiting nurse or other home services: No Alcohol intake: never Patient Tobacco Use Status: Never used Tobacco Tobacco use type: Cigarette Years Smoked: 18 years e-Cigarette/Vaping Use: Never Used Advance Directives: Yes Advance Directives on File: Yes Advance Directives Date on File: 04/16/21 service: No (PT DENIES BEING A ) Current occupational status: retired Physical Exam Vital Signs: Vital Signs: Last Vital Signs Temp 97.9 F 11/05/22 09:46 Pulse 78 11/05/22 14:47 Resp 27 H 11/05/22 14:47 BP 122/95 H 11/05/22 14:47 Pulse Ox 96 11/05/22 14:47 O2 Del Method 11/05/22 14:47 O2 Flow Rate 2 11/05/22 14:47 BMI result Body Mass Index 28.9 VITAL SIGNS: Reviewed. GENERAL: Well developed, well nourished, in no acute distress. HEAD: Normocephalic/atraumatic EYES: PERRLA, EOMI EARS: Ext canals without abnormality NOSE: Nares patent bilateral OROPHARYNX: no oral lesions noted, posterior pharynx clear NECK: Supple, no adenopathy LUNGS: Good inspiratory effort but decreased bibasilar with noted rales on the right and decreased breath sounds on the left base SpO2<> CARDIOVASCULAR: Regular rate and rhythm without noted murmurs, no JVD but bilateral lower extremity 1+ pitting edema ABDOMEN: Soft, non-tender, non-distended with bowel sounds. MUSCULOSKELETAL: No tenderness, deformities, or effusions noted on gross inspection. EXTREMITIES: No cyanosis, clubbing or edema. SKIN: Inspection of the skin reveals no rashes NEUROLOGIC: Alert and oriented x 4. Strength and sensation to light touch were grossly intact x 4. Medications Administered Discontinued Medications Generic Name Dose Route Start Last Admin Trade Name Freq PRN Reason Stop Dose Admin Dextrose 25 gm 11/05/22 10:59 11/05/22 11:08 Dextrose 50 % 25 Gm/50 Ml Syringe IVPUSH 11/05/22 11:00 25 gm ONCE ONE Administration Furosemide 80 mg 11/05/22 09:45 11/05/22 10:33 Furosemide 100 Mg/10 Ml Vial IVPUSH 11/05/22 09:46 80 mg ONCE ONE Administration Protocol Magnesium Sulfate 2 gm in 50 mls @ 150 mls/hr 11/05/22 10:57 11/05/22 12:08 Magnesium Sulfate/H2o IV 11/05/22 11:16 Infused ONCE ONE Infusion Calcium Gluconate 2 gm in 100 mls @ 400 mls/hr 11/05/22 10:59 11/05/22 12:08 Calcium Gluconate IV 11/05/22 11:13 Infused ONCE ONE Infusion Insulin Human Regular 5 unit 11/05/22 10:59 11/05/22 11:10 Insulin Regular, Human 100 Unit/Ml 3 Ml Vial IVPUSH 11/05/22 11:00 5 unit ONCE ONE Administration Medical Decision Making Medical Decision Making [facility] Narrative: 0948: 87-year-old male with suspected acute CHF exacerbation based on clinical findings and history. On review of current rhythm strip there is no evidence of AFib with RVR. No clinical suspicion for infection at this time. Review of all investigations demonstrates that patient has acute CHF exacerbation with JAMIE and hyperkalemia. Troponins are flat. Differential Diagnosis Please see the discussion above Consult Healthcare Provider Management of the patient was discussed with: Hospitalist [id number]: I discussed this case with inpatient hospitalist who accepts admission. Lab Data Please see the discussion above 11/05/22 10:00 11/05/22 10:00 Labs: Lab Results 11/05/22 11/05/22 11/05/22 Range/Units 09:57 10:00 10:00 WBC 8.2 (4.8-10.8) X10*3/uL RBC 3.99 L (4.60-5.80) X10*6/uL Hgb 11.3 L (14.0-18.0) g/dl Hct 36.2 L (42.0-52.0) % MCV 90.7 (80.0-98.0) fL MCH 28.3 (27.0-33.0) pg MCHC 31.2 (31.0-36.0) g/dl RDW 18.2 H (11.0-16.0) % Plt Count 228 (160-400) X10*3/uL MPV 10.2 (9.4-12.4) fL Immature Gran % (Auto) 0.2 (0.0-0.4) % Neut % (Auto) 78.4 H (45-73) % Lymph % (Auto) 7.4 L (20-40) % Blaine % (Auto) 12.5 H (2-11) % Eos % (Auto) 1.1 (0-4) % Baso % (Auto) 0.4 (0-2) % Lymph # (Auto) 0.6 L (1.2-4.9) X10*3/uL Blaine # (Auto) 1.0 (0.1-1.2) X10*3/uL Eos # (Auto) 0.1 (0.0-0.4) X10*3/uL Baso # (Auto) 0.0 (0.0-0.2) X10*3/uL Abs Immat Gran (auto) 0.02 (0.00-0.03) X10*3/uL Absolute Neuts (auto) 6.4 (2.0-8.3) x10*3/uL Absolute Nucleated RBC 0.000 (0.0-0.012) X10*3/uL Nucleated RBC % (auto) 0.0 (0.0-0.2) /100WBC PT (10.0-13.1) SEC INR (0.9-1.1) APTT (26.0-36.4) SEC Sodium 137 (135-145) mmol/L Potassium 6.0 H* (3.3-5.1) mmol/L Chloride 105 (96-108) mmol/L Carbon Dioxide 19 L (22-29) mmol/L Anion Gap 19 (12-20) BUN 81 H (9-16) mg/dL Creatinine 2.41 H (0.5-1.4) mg/dL Estim Creat Clear Calc 23.8 Estimated GFR 26 Random Glucose 100 (60-115) mg/dL Calcium 8.9 (8.4-10.2) mg/dL Magnesium 2.6 (1.6-2.6) mg/dL Total Bilirubin 0.7 (0.0-1.0) mg/dL AST 13 (5-37) U/L ALT 11 (0-40) U/L Alkaline Phosphatase 94 (39-117) U/L Troponin I High Sens (<3.5-35.0) ng/L B-Natriuretic Peptide (<100) pg/mL Total Protein 7.4 (6.5-8.0) g/dL Albumin 4.4 (3.5-5.0) g/dL COVID-19 (TAMI) Negative (Negative) COVID-19 Clin Com See Note 11/05/22 11/05/22 11/05/22 Range/Units 10:00 10:00 10:00 WBC (4.8-10.8) X10*3/uL RBC (4.60-5.80) X10*6/uL Hgb (14.0-18.0) g/dl Hct (42.0-52.0) % MCV (80.0-98.0) fL MCH (27.0-33.0) pg MCHC (31.0-36.0) g/dl RDW (11.0-16.0) % Plt Count (160-400) X10*3/uL MPV (9.4-12.4) fL Immature Gran % (Auto) (0.0-0.4) % Neut % (Auto) (45-73) % Lymph % (Auto) (20-40) % Blaine % (Auto) (2-11) % Eos % (Auto) (0-4) % Baso % (Auto) (0-2) % Lymph # (Auto) (1.2-4.9) X10*3/uL Blaine # (Auto) (0.1-1.2) X10*3/uL Eos # (Auto) (0.0-0.4) X10*3/uL Baso # (Auto) (0.0-0.2) X10*3/uL Abs Immat Gran (auto) (0.00-0.03) X10*3/uL Absolute Neuts (auto) (2.0-8.3) x10*3/uL Absolute Nucleated RBC (0.0-0.012) X10*3/uL Nucleated RBC % (auto) (0.0-0.2) /100WBC PT 15.3 H (10.0-13.1) SEC INR 1.3 H D (0.9-1.1) APTT 36.9 H (26.0-36.4) SEC Sodium (135-145) mmol/L Potassium (3.3-5.1) mmol/L Chloride (96-108) mmol/L Carbon Dioxide (22-29) mmol/L Anion Gap (12-20) BUN (9-16) mg/dL Creatinine (0.5-1.4) mg/dL Estim Creat Clear Calc Estimated GFR Random Glucose (60-115) mg/dL Calcium (8.4-10.2) mg/dL Magnesium (1.6-2.6) mg/dL Total Bilirubin (0.0-1.0) mg/dL AST (5-37) U/L ALT (0-40) U/L Alkaline Phosphatase (39-117) U/L Troponin I High Sens 16.2 (<3.5-35.0) ng/L B-Natriuretic Peptide 1597 H (<100) pg/mL Total Protein (6.5-8.0) g/dL Albumin (3.5-5.0) g/dL COVID-19 (TAMI) (Negative) COVID-19 Clin Com 11/05/22 11/05/22 Range/Units 12:22 12:22 WBC (4.8-10.8) X10*3/uL RBC (4.60-5.80) X10*6/uL Hgb (14.0-18.0) g/dl Hct (42.0-52.0) % MCV (80.0-98.0) fL MCH (27.0-33.0) pg MCHC (31.0-36.0) g/dl RDW (11.0-16.0) % Plt Count (160-400) X10*3/uL MPV (9.4-12.4) fL Immature Gran % (Auto) (0.0-0.4) % Neut % (Auto) (45-73) % Lymph % (Auto) (20-40) % Blaine % (Auto) (2-11) % Eos % (Auto) (0-4) % Baso % (Auto) (0-2) % Lymph # (Auto) (1.2-4.9) X10*3/uL Blaine # (Auto) (0.1-1.2) X10*3/uL Eos # (Auto) (0.0-0.4) X10*3/uL Baso # (Auto) (0.0-0.2) X10*3/uL Abs Immat Gran (auto) (0.00-0.03) X10*3/uL Absolute Neuts (auto) (2.0-8.3) x10*3/uL Absolute Nucleated RBC (0.0-0.012) X10*3/uL Nucleated RBC % (auto) (0.0-0.2) /100WBC PT (10.0-13.1) SEC INR (0.9-1.1) APTT (26.0-36.4) SEC Sodium 136 (135-145) mmol/L Potassium 5.4 H (3.3-5.1) mmol/L Chloride 107 (96-108) mmol/L Carbon Dioxide 21 L (22-29) mmol/L Anion Gap 13 (12-20) BUN 80 H (9-16) mg/dL Creatinine 2.38 H (0.5-1.4) mg/dL Estim Creat Clear Calc 24.1 Estimated GFR 26 Random Glucose 75 (60-115) mg/dL Calcium 9.1 (8.4-10.2) mg/dL Magnesium (1.6-2.6) mg/dL Total Bilirubin (0.0-1.0) mg/dL AST (5-37) U/L ALT (0-40) U/L Alkaline Phosphatase (39-117) U/L Troponin I High Sens 13.9 (<3.5-35.0) ng/L B-Natriuretic Peptide (<100) pg/mL Total Protein (6.5-8.0) g/dL Albumin (3.5-5.0) g/dL COVID-19 (TAMI) (Negative) COVID-19 Clin Com Independent Interpretation I performed an independent interpretation of an: EKG Interpretation: Atrial fibrillation, HR-71, no STEMI, QRS and QTC consistent with prior EKG. There are noted T-wave inversions in anterior leads, however on comparison with prior EKG these were present in the lateral leads previously. Radiology Impression Radiologist Impression: My interpretation is in agreement with radiology's impression of the imaging study. External Record Review External record reviewed: Outpatient record and Prior outpatient labs Chronic Conditions Patient?s care impacted by: Hypertension Critical Care Time Critical Care Time Critical Care Time: Yes Total Critical Care Time: 60 Attestation: I personally attest to this time spent taking care of the patient. Discharge Plan Discharge Clinical Impression: CHF exacerbation, JAMIE (acute kidney injury), Hyperkalemia, Subtherapeutic international normalized ratio (INR) Patient Disposition: Admitted As Inpatient
[2022-11-05 09:46] VITALS: BP 124/63; BP 138/70; PULSE 74; PULSE 82; RESP 30; TEMP 36.6; O2SAT 100; O2SAT 90; BMI 28.9
[2022-11-05 10:09] LABS: MANUAL DIFF FLAG NO
[2022-11-05 10:11] LABS: Basophils Percent Auto 0.4 % (0-2); Eosinophils Absolute Auto 0.1 X10*3/uL (0.0-0.4); Eosinophils Percent Auto 1.1 % (0-4); Hematocrit 36.2 % (42.0-52.0); Hemoglobin 11.3 g/dl (14.0-18.0); Imm Gran Abs Auto 0.02 X10*3/uL (0.00-0.03); Imm Gran Pct Auto 0.2 % (0.0-0.4); Lymphocytes Absolute Auto 0.6 X10*3/uL (1.2-4.9); Lymphocytes Percent Auto 7.4 % (20-40); Mean Corpuscular HGB Conc 31.2 g/dl (31.0-36.0); Mean Corpuscular Hemoglobin 28.3 pg (27.0-33.0); Mean Corpuscular Volume 90.7 fL (80.0-98.0); Mean Platelet Volume 10.2 fL (9.4-12.4); Monocytes Percent Auto 12.5 % (2-11); Neutrophils Absolute Auto 6.4 x10*3/uL (2.0-8.3); Neutrophils Percent Auto 78.4 % (45-73); Platelet Count 228 X10*3/uL (160-400); Red Blood Count 3.99 X10*6/uL (4.60-5.80); Red Cell Distribution Width 18.2 % (11.0-16.0); White Blood Count 8.2 X10*3/uL (4.8-10.8)
[2022-11-05 10:24] LABS: COVID-19 Test Negative (Negative); IDNOW Serial# 55D5AD1C
[2022-11-05] MEDS: Furosemide 100 MG/10 ML VIAL 80 MG IVPUSH (10:33)
[2022-11-05 10:34] LABS: INTERNATIONAL NORM RATIO 1.3 (0.9-1.1); Prothrombin Time 15.3 SEC (10.0-13.1)
[2022-11-05 10:52] LABS: B Type Natriuretic Peptide 1597 pg/mL (<100)
[2022-11-05 10:57] LABS: Troponin-I High Sensitivity 16.2 ng/L (<3.5-35.0)
[2022-11-05] MEDS: Calcium Gluconate/NaCl,Iso-Osm 2 GM/100 ML PLAST..BAG IV (11:08)
[2022-11-05] MEDS: Magnesium Sulfate/H2O 2 GM/50 ML PIGGYBACK IV (11:08)
[2022-11-05] MEDS: Dextrose 50 % 25 GM/50 ML SYRINGE IVPUSH (11:08)
[2022-11-05 11:09] LABS: Alanine Aminotransferase 11 U/L (0-40); Albumin Level 4.4 g/dL (3.5-5.0); Alkaline Phosphatase 94 U/L (39-117); Anion Gap 19 (12-20); Aspartate Amino Transferase 13 U/L (5-37); Bilirubin Total 0.7 mg/dL (0.0-1.0); Blood Urea Nitrogen 81 mg/dL (9-16); Calcium 8.9 mg/dL (8.4-10.2); Carbon Dioxide 19 mmol/L (22-29); Chloride 105 mmol/L (96-108); Creatinine Clr Calc Pharmacy 23.8; Estimated Glomerular Filt Rate 26; Glucose Random 100 mg/dL (60-115); Sodium 137 mmol/L (135-145); Total Protein 7.4 g/dL (6.5-8.0)
[2022-11-05] MEDS: Insulin Regular, Human 100 UNIT/ML 3 ML VIAL IVPUSH (11:10)
[2022-11-05 11:11] LABS: Magnesium 2.6 mg/dL (1.6-2.6)
[2022-11-05 11:45] VITALS: BP 130/78; PULSE 82; RESP 33; O2SAT 96
[2022-11-05 12:34] LABS: Partial Thromboplastin Time 36.9 SEC (26.0-36.4)
[2022-11-05 12:45] LABS: Anion Gap 13 (12-20); Blood Urea Nitrogen 80 mg/dL (9-16); Calcium 9.1 mg/dL (8.4-10.2); Carbon Dioxide 21 mmol/L (22-29); Chloride 107 mmol/L (96-108); Creatinine Clr Calc Pharmacy 24.1; Estimated Glomerular Filt Rate 26; Glucose Random 75 mg/dL (60-115); Potassium 5.4 mmol/L (3.3-5.1); Sodium 136 mmol/L (135-145)
--- NOTE | 2022-11-05 12:49 | PC.NURSE ---
patient alert, oriented x4. states SOB worse with exertion. given IVP lasix per NOV. will monitor output. placed on 2L nasal cannula for SPO2 in the low 90s. call kelly within reach
[2022-11-05 12:55] LABS: Troponin-I High Sensitivity 13.9 ng/L (<3.5-35.0)
--- NOTE | 2022-11-05 13:32 | P.HPHOSP_ITS ---
History of Present Illness Date of Service: 11/05/22 Attending physician on admission: Elias Gould Chief Complaint: Dyspnea Pt is a 87-year-old male with a PMH significant for?HTN, CHF with preserved EF, persistent AFib, and BPH who presents to the ED with?worsening SOB for the past few days. Pt has had chronic SOB for many years, but states he has had increased SOB d/t phlegm being caught in his throat that he could not cough up. He claims this resolved earlier today, only to be replaced by his AFib kicking in this morning. Pt says he is not usually in AFib, but knew he was in it today because of difficulty breathing. Notes some increased lower leg edema, but denies abdominal swelling. Denies chest pain/pressure, palpitations. No fever, chills, nausea, vomiting, abdominal pain. Pt notes he sometimes forgets to take his furosemide, but is compliant with all his other medications. In the ED patient was afebrile and tachypneic up to 33. Labs were significant for WBC WNL, H&H 11.3/36.2 (at baseline), INR subtherapeutic at 1.3, potassium of 6.0 with repeat 5.4, creatinine of 2.41 with repeat 2.38, BNP 1597, troponin 60.2 with repeat of 30.9. CXR showed no acute cardiopulmonary process. EKG demonstrated AFib without evidence of ST depressions or elevations. Pt was treat ed with furosemide, Mag sulfate, calcium gluconate, dextrose, and insulin. Pt will be admitted to the hospital for treatment and further evaluation of acute SOB without hypoxia. Review of Systems Review of Systems: Shortness of breath x3 days Mildly increased lower leg edema bilaterally Denies chest pain/pressure, palpitations Denies fever, chills, nausea, vomiting, diarrhea, abdominal pain Yes all other systems are reviewed and are negative [facility] Medical History (HFpEF) heart failure with preserved ejection fraction Acute on chronic diastolic (congestive) heart failure BPH (benign prostatic hyperplasia) CHF (congestive heart failure) CHF (congestive heart failure) Congestive heart failure Herpes zoster, ocular HTN (hypertension) Hypertensive emergency Osteoarthritis Paroxysmal atrial fibrillation Persistent atrial fibrillation Pleural effusion Pleural effusion Pneumonitis Family History Father No problems noted. Mother No problems noted. 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 Allergies Allergy/AdvReac Type Severity Reaction Status Date / Time No Known Allergies Allergy Mild NOT Verified 11/05/22 10:02 APPLICABLE Home Medications Medication Instructions Recorded Confirmed Last Taken Type metoprolol succinate 100 mg 100 mg PO DAILY 08/11/22 11/05/22 11/04/22 History tablet,extended release 24 hr warfarin 5 mg tablet (Jantoven) 10 mg PO MOTUWETHFR 08/11/22 11/05/22 11/04/22 History amlodipine 10 mg tablet 1 tab PO DAILY 11/05/22 11/05/22 11/04/22 History betamethasone dipropionate 0.05 % 1 appl topical BID PRN Rash 11/05/22 11/05/22 Unknown History lotion furosemide 40 mg tablet 1 tab PO DAILY PRN Edema 11/05/22 11/05/22 Unknown History warfarin 5 mg tablet (Jantoven) 5 mg PO SUSA 11/05/22 11/05/22 11/01/22 History Physical Exam Vital Signs and Narrative: Vital Signs: Last Vital Signs Temp 97.9 F 11/05/22 09:46 Pulse 82 11/05/22 11:45 Resp 33 H 11/05/22 11:45 BP 130/78 11/05/22 11:45 Pulse Ox 96 11/05/22 11:45 O2 Del Method 11/05/22 11:45 O2 Flow Rate 2 11/05/22 11:45 BMI result Body Mass Index 28.9 Constitutional: Alert, in no acute distress. Occasionally frustrated during interview answering questions he has already told another provider. Mental Status: Oriented to person, place and time. Eyes: Pupils are equal, round, and reactive to light. Ear, Nose, and Throat: Oropharynx clear, mucous membranes moist. Ears and nose without deformities. Trachea midline. Respiratory: Clear to auscultation bilaterally. No wheezing, rales, or rhonchi. Cardiovascular: S1, S2 regular. No murmurs, rubs, or gallops. Gastrointestinal: Abdomen soft, non-tender, mildly distended. Normal bowel sounds. Neurologic: Cranial nerves II-XII are grossly intact bilaterally. No focal neurological deficits. Moves all extremities spontaneously. Skin: No rashes or lesions noted. Musculoskeletal: No cyanosis or clubbing. Extremities: No edema. Psychiatric: Normal mood and affect. Results Labs 11/05/22 10:00 11/05/22 12:22 Labs: Laboratory Results - last 24 hr 11/05/22 11/05/22 11/05/22 09:57 10:00 10:00 MCV 90.7 MCH 28.3 MCHC 31.2 RDW 18.2 H Plt Count 228 MPV 10.2 Immature Gran % (Auto) 0.2 Neut % (Auto) 78.4 H Lymph % (Auto) 7.4 L [place] % (Auto) 12.5 H Eos % (Auto) 1.1 Baso % (Auto) 0.4 Lymph # (Auto) 0.6 L [place] # (Auto) 1.0 Eos # (Auto) 0.1 Baso # (Auto) 0.0 Abs Immat Gran (auto) 0.02 Absolute Neuts (auto) 6.4 Absolute Nucleated RBC 0.000 Nucleated RBC % (auto) 0.0 PT INR APTT Anion Gap 19 Estim Creat Clear Calc 23.8 Estimated GFR 26 Random Glucose 100 Calcium 8.9 Magnesium 2.6 Total Bilirubin 0.7 AST 13 ALT 11 Alkaline Phosphatase 94 Troponin I High Sens B-Natriuretic Peptide Total Protein 7.4 Albumin 4.4 COVID-19 (TAMI) Negative COVID-19 Clin Com See Note 11/05/22 11/05/22 11/05/22 10:00 10:00 10:00 MCV MCH MCHC RDW Plt Count MPV Immature Gran % (Auto) Neut % (Auto) Lymph % (Auto) [place] % (Auto) Eos % (Auto) Baso % (Auto) Lymph # (Auto) [place] # (Auto) Eos # (Auto) Baso # (Auto) Abs Immat Gran (auto) Absolute Neuts (auto) Absolute Nucleated RBC Nucleated RBC % (auto) PT 15.3 H INR 1.3 H D APTT 36.9 H Anion Gap Estim Creat Clear Calc Estimated GFR Random Glucose Calcium Magnesium Total Bilirubin AST ALT Alkaline Phosphatase Troponin I High Sens 16.2 B-Natriuretic Peptide 1597 H Total Protein Albumin COVID-19 (TAMI) COVID-19 Clin Com 11/05/22 11/05/22 12:22 12:22 MCV MCH MCHC RDW Plt Count MPV Immature Gran % (Auto) Neut % (Auto) Lymph % (Auto) [place] % (Auto) Eos % (Auto) Baso % (Auto) Lymph # (Auto) [place] # (Auto) Eos # (Auto) Baso # (Auto) Abs Immat Gran (auto) Absolute Neuts (auto) Absolute Nucleated RBC Nucleated RBC % (auto) PT INR APTT Anion Gap 13 Estim Creat Clear Calc 24.1 Estimated GFR 26 Random Glucose 75 Calcium 9.1 Magnesium Total Bilirubin AST ALT Alkaline Phosphatase Troponin I High Sens 13.9 B-Natriuretic Peptide Total Protein Albumin COVID-19 (TAMI) COVID-19 Clin Com Imaging Radiologist's Impressions: Impressions Chest X-Ray 11/05/22 10:30 IMPRESSION: No acute cardiopulmonary process. Assessment and Plan (1) JAMIE (acute kidney injury): Status: Acute (2) CHF exacerbation: Status: Acute Plan Pt is a 87-year-old male with a PMH significant for?HTN, CHF with preserved EF, persistent AFib, and BPH who presents to the ED with?worsening SOB for the past few days. Pt will be admitted to the hospital for treatment and further evaluation of acute SOB without hypoxia. Question of acute on chronic congestive heart failure with preserved EF Pt states he sometimes forgets to take his furosemide CXR not diagnostic for CHF, BNP elevated, trace lower leg pitting edema bilaterally, lungs CTA Pt received 80 mg IV Lasix in the ED Hold off on additional IV Lasix at this time Recheck BNP, BMP in morning Cardiology consult Hyperkalemia Patient hyperkalemia at 6.0 with repeat of 5.4 Possibly secondary to poor renal function Patient received calcium gluconate, dextrose, and insulin ED [facility] x1 dose Recheck CBC in morning Elevated creatinine Patient's creatinine 2.41 with repeat of 2.38 Unclear etiology: JAMIE vs cardiorenal from CHF Pt given IV Lasix in ED; hold off on IVF for now Persistent AFib EKG shows AFib with no evidence of ST elevations or depressions Continued metoprolol, warfarin INR Subtherapeutic at 1.3 Likely secondary to medication noncompliance Patient states he took his 10mg dose earlier this morning Recheck INR tomorrow, correct as necessary HTN Continue amlodipine DNR/DNI Attending:?Dr. Gould DVT Prophylaxis: On warfarin Pt will require a hospitalization of at least two nights for treatment and further evaluation of acute SOB without hypoxia, question of acute HFpEF exacerbation vs JAMIE.. Time Spent With Patient Time: Total time managing care of this patient today ____ minutes. Quality Stroke Does the patient have a stroke diagnosis?: No VTE Prior VTE?: No VTE Risk Level:: Medical - moderate - high VTE Device Contraindication: Treatment Not Indicated VTE Drug Contraindication: N/A - Med Ordered
--- NOTE | 2022-11-05 14:40 | PHA.MEDREC ---
Pharmacy Consult ? Medication Reconciliation Pharmacy has completed the medication reconciliation. Patient had medication list he used to give me med history. He states he takes 10 mg warfarin wednesday through wednesday and 5 mg on wednesday and wednesday. Says he takes furosemide if he remembers it and feels like it . Unsure when his last dose of that was but he says other medications were taken last yesterday.
[2022-11-05 14:47] VITALS: BP 122/95; PULSE 78; RESP 27; O2SAT 96
[2022-11-05 14:52] LABS: Appearance Urine Clear; Color Urine Yellow; Glucose Urine UA Negative (Negative); Leukocyte Esterase Urine Small (1+) (Negative); Nitrite Urine Negative (Negative); UMIC TRIGGER UACC YES; Urine Blood Negative (Negative); Urine Ketones Negative (Negative); Urine Protein 30 (1+) mg/dL (Neg-Trace)
[2022-11-05 15:00] LABS: Bacteria Urine None Seen (None Seen); RBC Urine 0-2 /HPF (0-2); Squamous Epithelial Cell Urine 0-2 /HPF (0-2); UACC Culture Trigger YES
[2022-11-05] MEDS: Sodium Zirconium Cyclosilicate 10 GM POWD.PACK PO (15:33)
[2022-11-05 15:59] LABS: Amphetamine Screen Urine Not Detected (Not Detect); Barbiturates, Urine Not Detected (Not Detect); Benzodiazepines Screen Urine Not Detected (Not Detect); Cannabinoid Screen Urine Not Detected (Not Detect); Cocaine Screen Urine Not Detected (Not Detect); Fentanyl, urine Not Detected (Not Detect); Opiate Screen Urine Not Detected (Not Detect); Phencyclidine Screen Urine Not Detected (Not Detect)
[2022-11-05 16:00] VITALS: BP 114/58; PULSE 78; RESP 20; TEMP 36.8; O2SAT 93
--- NOTE | 2022-11-05 16:00 | MHC.EDTECH ---
THIS PCT ASSUMED CARE OF PT AT 1500 ,ROUNDING DONE ,VITALS SIGN TAKEN ,PT WAS ASSISTED BY THIS PCT TO CHANGE INTO HOSPITAL ATTIRE ,PT WAS BOOSTED UP IN BED ,FRESH WATER GIVEN ,PT RESTING QUIETLY IN BED .
[2022-11-05 16:06] LABS: Ethanol < 10 mg/dL
[2022-11-05] MEDS: 0.9 % Sodium Chloride Flush 3 ML SYRINGE IVFLUSH ×2 (16:24→23:34)
--- NOTE | 2022-11-05 17:54 | MHC.EDTECH ---
pt was assisted to bedside commode ,but did not do any thing
--- NOTE | 2022-11-05 18:03 | PC.NURSE ---
pharmacy called for warfarin tablet. tablets is not loaded in the ED farrah
[2022-11-05] MEDS: Warfarin Sodium 10 MG TABLET PO (18:32)
--- NOTE | 2022-11-05 18:46 | MHC.EDTECH ---
pt was served dinner ,ate 100 % and drank 480 ml fluids .
[2022-11-05 20:24] VITALS: BP 110/75; PULSE 78; RESP 32; TEMP 36.4; O2SAT 96
[2022-11-05 21:00] VITALS: PULSE 78; RESP 24; O2SAT 96
[2022-11-06] VITALS (10 sets, daily range): BP systolic 105–144; BP diastolic 60–77; PULSE 66–82; RESP 18–24; TEMP 36.3–36.9; O2SAT 90–95; BMI 31.9
--- NOTE | 2022-11-06 07:22 | PM.DS ---
DS: Providers Provider Date of admission: 11/05/22 14:51 Primary care physician: Marcos Maurer MD Consults: 11/05/22 14:54 Consult to Cardiology Routine Consulting Provider: [facility] Cardiovascular Services Reason for consultation: ?CHF Has provider been notified: Yes DS: Diagnosis Discharge Diagnosis (1) JAMIE (acute kidney injury): Status: Acute (2) CHF exacerbation: Status: Acute DS: Summary Hospital Course Hospital Course: 87-year-old male with a PMH significant for?HTN, CHF with preserved EF, persistent AFib, and BPH who presents to the ED with?worsening SOB for the past few days. Pt will be admitted to the hospital for treatment and further evaluation of acute SOB without hypoxia. Question of acute on chronic congestive heart failure with preserved EF Pt states he sometimes forgets to take his furosemide CXR not diagnostic for CHF, BNP elevated, trace lower leg pitting edema bilaterally, lungs CTA Pt received 80 mg IV Lasix in the ED Hold off on additional IV Lasix at this time Recheck BNP, BMP in morning Cardiology consult Hyperkalemia Patient hyperkalemia at 6.0 with repeat of 5.4 Possibly secondary to poor renal function Patient received calcium gluconate, dextrose, and insulin ED [facility] x1 dose Recheck CBC in morning Elevated creatinine Patient's creatinine 2.41 with repeat of 2.38 Unclear etiology:? JAMIE vs cardiorenal from CHF Pt given IV Lasix in ED; hold off on IVF for now Persistent AFib EKG shows AFib with no evidence of ST elevations or depressions Continued metoprolol, warfarin INR Subtherapeutic at 1.3 Likely secondary to medication noncompliance Patient states he took his 10mg dose earlier this morning Recheck INR tomorrow, correct as necessary HTN Continue amlodipine DNR/DNI Attending:?Dr. Gould DVT Prophylaxis: On warfarin Pt will require a hospitalization of at least two nights for treatment and further evaluation of acute SOB without hypoxia, question of acute HFpEF exacerbation vs JAMIE.. Time Spent with Patient Time attestation: Total time managing care of this patient today ____ minutes. Physical Exam Vital Signs: Vital Signs: Last Vital Signs Temp 97.5 F 11/06/22 04:00 Pulse 79 11/06/22 04:00 Resp 20 11/06/22 04:00 BP 138/60 11/06/22 04:00 Pulse Ox 94 11/06/22 04:00 O2 Del Method 11/06/22 04:00 O2 Flow Rate 4 11/06/22 04:00 BMI result Body Mass Index 31.9 DS: Data Data Completed and Pending Labs on day of discharge: Laboratory Results - last 24 hr 11/05/22 11/05/22 11/05/22 09:57 10:00 10:00 WBC 8.2 RBC 3.99 L Hgb 11.3 L Hct 36.2 L MCV 90.7 MCH 28.3 MCHC 31.2 RDW 18.2 H Plt Count 228 MPV 10.2 Immature Gran % (Auto) 0.2 Neut % (Auto) 78.4 H Lymph % (Auto) 7.4 L [place] % (Auto) 12.5 H Eos % (Auto) 1.1 Baso % (Auto) 0.4 Lymph # (Auto) 0.6 L [place] # (Auto) 1.0 Eos # (Auto) 0.1 Baso # (Auto) 0.0 Abs Immat Gran (auto) 0.02 Absolute Neuts (auto) 6.4 Absolute Nucleated RBC 0.000 Nucleated RBC % (auto) 0.0 PT INR APTT Sodium 137 Potassium 6.0 H* Chloride 105 Carbon Dioxide 19 L Anion Gap 19 BUN 81 H Creatinine 2.41 H Estim Creat Clear Calc 23.8 Estimated GFR 26 Random Glucose 100 Calcium 8.9 Magnesium 2.6 Total Bilirubin 0.7 AST 13 ALT 11 Alkaline Phosphatase 94 Troponin I High Sens B-Natriuretic Peptide Total Protein 7.4 Albumin 4.4 Urine Color Urine Appearance Urine pH Ur Specific [place] Urine Protein Urine Glucose (UA) Urine Ketones Urine Blood Urine Nitrite Ur Leukocyte Esterase Urine RBC Urine WBC Ur Squamous Epith Cells Urine Bacteria Hyaline Casts Urine Opiates Screen Urine Fentanyl Screen Ur Barbiturates Screen Ur Phencyclidine Scrn Ur Amphetamines Screen U Benzodiazepines Scrn Urine Cocaine Screen U Marijuana (THC) Screen Ethyl Alcohol < 10 COVID-19 (TAMI) Negative COVID-19 Clin Com See Note 11/05/22 11/05/22 11/05/22 10:00 10:00 10:00 WBC RBC Hgb Hct MCV MCH MCHC RDW Plt Count MPV Immature Gran % (Auto) Neut % (Auto) Lymph % (Auto) [place] % (Auto) Eos % (Auto) Baso % (Auto) Lymph # (Auto) [place] # (Auto) Eos # (Auto) Baso # (Auto) Abs Immat Gran (auto) Absolute Neuts (auto) Absolute Nucleated RBC Nucleated RBC % (auto) PT 15.3 H INR 1.3 H D APTT 36.9 H Sodium Potassium Chloride Carbon Dioxide Anion Gap BUN Creatinine Estim Creat Clear Calc Estimated GFR Random Glucose Calcium Magnesium Total Bilirubin AST ALT Alkaline Phosphatase Troponin I High Sens 16.2 B-Natriuretic Peptide 1597 H Total Protein Albumin Urine Color Urine Appearance Urine pH Ur Specific [place] Urine Protein Urine Glucose (UA) Urine Ketones Urine Blood Urine Nitrite Ur Leukocyte Esterase Urine RBC Urine WBC Ur Squamous Epith Cells Urine Bacteria Hyaline Casts Urine Opiates Screen Urine Fentanyl Screen Ur Barbiturates Screen Ur Phencyclidine Scrn Ur Amphetamines Screen U Benzodiazepines Scrn Urine Cocaine Screen U Marijuana (THC) Screen Ethyl Alcohol COVID-19 (TAMI) [place] 11/05/22 11/05/22 11/05/22 12:22 12:22 14:42 WBC RBC Hgb Hct MCV MCH MCHC RDW Plt Count MPV Immature Gran % (Auto) Neut % (Auto) Lymph % (Auto) [place] % (Auto) Eos % (Auto) Baso % (Auto) Lymph # (Auto) [place] # (Auto) Eos # (Auto) Baso # (Auto) Abs Immat Gran (auto) Absolute Neuts (auto) Absolute Nucleated RBC Nucleated RBC % (auto) PT INR APTT Sodium 136 Potassium 5.4 H Chloride 107 Carbon Dioxide 21 L Anion Gap 13 BUN 80 H Creatinine 2.38 H Estim Creat Clear Calc 24.1 Estimated GFR 26 Random Glucose 75 Calcium 9.1 Magnesium Total Bilirubin AST ALT Alkaline Phosphatase Troponin I High Sens 13.9 B-Natriuretic Peptide Total Protein Albumin Urine Color Yellow Urine Appearance Clear Urine pH 5.0 Ur Specific [place] 1.010 Urine Protein 30 (1+) H Urine Glucose (UA) Negative Urine Ketones Negative Urine Blood Negative Urine Nitrite Negative Ur Leukocyte Esterase Small (1+) H Urine RBC 0-2 Urine WBC 6-10 H Ur Squamous Epith Cells 0-2 Urine Bacteria None Seen Hyaline Casts 11-20 Urine Opiates Screen Urine Fentanyl Screen Ur Barbiturates Screen Ur Phencyclidine Scrn Ur Amphetamines Screen U Benzodiazepines Scrn Urine Cocaine Screen U Marijuana (THC) Screen Ethyl Alcohol COVID-19 (TAMI) [employer] 11/05/22 14:42 WBC RBC Hgb Hct MCV MCH MCHC RDW Plt Count MPV Immature Gran % (Auto) Neut % (Auto) Lymph % (Auto) [place] % (Auto) Eos % (Auto) Baso % (Auto) Lymph # (Auto) [place] # (Auto) Eos # (Auto) Baso # (Auto) Abs Immat Gran (auto) Absolute Neuts (auto) Absolute Nucleated RBC Nucleated RBC % (auto) PT INR APTT Sodium Potassium Chloride Carbon Dioxide Anion Gap BUN Creatinine Estim Creat Clear Calc Estimated GFR Random Glucose Calcium Magnesium Total Bilirubin AST ALT Alkaline Phosphatase Troponin I High Sens B-Natriuretic Peptide Total Protein Albumin Urine Color Urine Appearance Urine pH Ur Specific [place] Urine Protein Urine Glucose (UA) Urine Ketones Urine Blood Urine Nitrite Ur Leukocyte Esterase Urine RBC Urine WBC Ur Squamous Epith Cells Urine Bacteria Hyaline Casts Urine Opiates Screen Not Detected Urine Fentanyl Screen Not Detected Ur Barbiturates Screen Not Detected Ur Phencyclidine Scrn Not Detected Ur Amphetamines Screen Not Detected U Benzodiazepines Scrn Not Detected Urine Cocaine Screen Not Detected U Marijuana (THC) Screen Not Detected Ethyl Alcohol COVID-19 (TAMI) COVID-19 Clin Com Discharge Plan Discharge Referrals: Marcos Maurer MD [Primary Care Provider] - 1 Week Discharge Medications: No Action amlodipine 10 mg tablet 1 tab PO DAILY betamethasone dipropionate 0.05 % lotion 1 appl topical BID PRN (Reason: Rash) furosemide 40 mg tablet 1 tab PO DAILY PRN (Reason: Edema) warfarin [Jantoven] 5 mg tablet 5 mg PO SUSA warfarin [Jantoven] 5 mg tablet 10 mg PO [id number] metoprolol succinate 100 mg tablet extended release 24 hr 100 mg PO DAILY
--- NOTE | 2022-11-06 07:26 | HO.PM.IMPN ---
Subjective Subjective Date of Service: 11/07/22 Interval History: f/u on heart failure exacerbation interval history: He feels much better complare to yesterday Physical Exam Vital Signs: Vital Signs: Last Vital Signs Temp 97.5 F 11/06/22 04:00 Pulse 79 11/06/22 04:00 Resp 20 11/06/22 04:00 BP 138/60 11/06/22 04:00 Pulse Ox 94 11/06/22 04:00 O2 Del Method 11/06/22 04:00 O2 Flow Rate 4 11/06/22 04:00 BMI result Body Mass Index 31.9 Const: Other: General: AO X 3, no acute distress Resp: CTA bilateral CVS: S1,S2,RRR, gissell leg edema GI: +BS, NT, no distention Skin: No rash Neuro: motor grossly intact Psych: appropriate affect Objective Data Active Medications Acetaminophen (Acetaminophen 325 Mg Tablet) 650 mg PO Q6H PRN PRN Reason: Pain, Mild (Pain Scale 1-3) Amlodipine Besylate (Amlodipine Besylate 10 Mg Tablet) 10 mg PO DAILY [facility]; Protocol Albuterol Sulfate 2.5 mg/ (Ipratropium [place] 0.5 mg) 0 mg INHALE Q4H PRN PRN Reason: Wheezing Last Admin: 11/05/22 20:47 Dose: 1 each Documented By: RENNY Docusate Sodium (Docusate Sodium 100 Mg Capsule) 100 mg PO DAILY PRN PRN Reason: Constipation Metoprolol Succinate (Metoprolol Succinate Er 100 Mg Tab.Er.24h) 100 mg PO DAILY [facility]; Protocol Ondansetron HCl (Ondansetron Hcl 4 Mg/2 Ml Vial) 4 mg IVPUSH Q8H PRN PRN Reason: Nausea and Vomiting Pharmacy Consult (Consult Rx Perform Med Rec) 1 each MISCELLANE ONCE PRN PRN Reason: Consult order Sodium Chloride (0.9 % Sodium Chloride Flush 3 Ml Syringe) 3 ml IVFLUSH QSHIFT [facility] Last Admin: 11/05/22 23:34 Dose: 3 ml Documented By: LOC Warfarin Sodium (Warfarin Sodium 5 Mg Tablet) 5 mg PO SuSa@1800 [facility] Warfarin Sodium (Warfarin Sodium 10 Mg Tablet) 10 mg PO MoTuWeThFr@1800 [facility] Last Admin: 11/05/22 18:32 Dose: 10 mg Documented By: REAN Labs 11/05/22 10:00 11/05/22 12:22 Labs: Laboratory Results - last 24 hr 11/05/22 11/05/22 11/05/22 09:57 10:00 10:00 MCV 90.7 MCH 28.3 MCHC 31.2 RDW 18.2 H Plt Count 228 MPV 10.2 Immature Gran % (Auto) 0.2 Neut % (Auto) 78.4 H Lymph % (Auto) 7.[address] [place] % (Auto) 12.5 H Eos % (Auto) 1.1 Baso % (Auto) 0.4 Lymph # (Auto) 0.[address] [place] # (Auto) 1.0 Eos # (Auto) 0.1 Baso # (Auto) 0.0 Abs Immat Gran (auto) 0.02 Absolute Neuts (auto) 6.4 Absolute Nucleated RBC 0.000 Nucleated RBC % (auto) 0.0 PT INR APTT Anion Gap 19 Estim Creat Clear Calc 23.8 Estimated GFR 26 Random Glucose 100 Calcium 8.9 Magnesium 2.6 Total Bilirubin 0.7 AST 13 ALT 11 Alkaline Phosphatase 94 Troponin I High Sens B-Natriuretic Peptide Total Protein 7.4 Albumin 4.4 Urine Color Urine Appearance Urine pH Ur Specific [place] Urine Protein Urine Glucose (UA) Urine Ketones Urine Blood Urine Nitrite Ur Leukocyte Esterase Urine RBC Urine WBC Ur Squamous Epith Cells Urine Bacteria Hyaline Casts Urine Opiates Screen Urine Fentanyl Screen Ur Barbiturates Screen Ur Phencyclidine Scrn Ur Amphetamines Screen U Benzodiazepines Scrn Urine Cocaine Screen U Marijuana (THC) Screen Ethyl Alcohol < 10 COVID-19 (TAMI) Negative COVID-19 Clin Com See Note 11/05/22 11/05/22 11/05/22 10:00 10:00 10:00 MCV MCH MCHC RDW Plt Count MPV Immature Gran % (Auto) Neut % (Auto) Lymph % (Auto) [place] % (Auto) Eos % (Auto) Baso % (Auto) Lymph # (Auto) [place] # (Auto) Eos # (Auto) Baso # (Auto) Abs Immat Gran (auto) Absolute Neuts (auto) Absolute Nucleated RBC Nucleated RBC % (auto) PT 15.3 H INR 1.3 H D APTT 36.9 H Anion Gap Estim Creat Clear Calc Estimated GFR Random Glucose Calcium Magnesium Total Bilirubin AST ALT Alkaline Phosphatase Troponin I High Sens 16.2 B-Natriuretic Peptide 1597 H Total Protein Albumin Urine Color Urine Appearance Urine pH Ur Specific [place] Urine Protein Urine Glucose (UA) Urine Ketones Urine Blood Urine Nitrite Ur Leukocyte Esterase Urine RBC Urine WBC Ur Squamous Epith Cells Urine Bacteria Hyaline Casts Urine Opiates Screen Urine Fentanyl Screen Ur Barbiturates Screen Ur Phencyclidine Scrn Ur Amphetamines Screen U Benzodiazepines Scrn Urine Cocaine Screen U Marijuana (THC) Screen Ethyl Alcohol COVID-19 (ATMI) COVID-19 Invenias Com 11/05/22 11/05/22 11/05/22 12:22 12:22 14:42 MCV MCH MCHC RDW Plt Count MPV Immature Gran % (Auto) Neut % (Auto) Lymph % (Auto) [place] % (Auto) Eos % (Auto) Baso % (Auto) Lymph # (Auto) [place] # (Auto) Eos # (Auto) Baso # (Auto) Abs Immat Gran (auto) Absolute Neuts (auto) Absolute Nucleated RBC Nucleated RBC % (auto) PT INR APTT Anion Gap 13 Estim Creat Clear Calc 24.1 Estimated GFR 26 Random Glucose 75 Calcium 9.1 Magnesium Total Bilirubin AST ALT Alkaline Phosphatase Troponin I High Sens 13.9 B-Natriuretic Peptide Total Protein Albumin Urine Color Yellow Urine Appearance Clear Urine pH 5.0 Ur Specific [place] 1.010 Urine Protein 30 (1+) H Urine Glucose (UA) Negative Urine Ketones Negative Urine Blood Negative Urine Nitrite Negative Ur Leukocyte Esterase Small (1+) H Urine RBC 0-2 Urine WBC 6-10 H Ur Squamous Epith Cells 0-2 Urine Bacteria None Seen Hyaline Casts 11-20 Urine Opiates Screen Urine Fentanyl Screen Ur Barbiturates Screen Ur Phencyclidine Scrn Ur Amphetamines Screen U Benzodiazepines Scrn Urine Cocaine Screen U Marijuana (THC) Screen Ethyl Alcohol COVID-19 (TAMI) COVID-19 Invenias Com 11/05/22 14:42 MCV MCH MCHC RDW Plt Count MPV Immature Gran % (Auto) Neut % (Auto) Lymph % (Auto) [place] % (Auto) Eos % (Auto) Baso % (Auto) Lymph # (Auto) [place] # (Auto) Eos # (Auto) Baso # (Auto) Abs Immat Gran (auto) Absolute Neuts (auto) Absolute Nucleated RBC Nucleated RBC % (auto) PT INR APTT Anion Gap Estim Creat Clear Calc Estimated GFR Random Glucose Calcium Magnesium Total Bilirubin AST ALT Alkaline Phosphatase Troponin I High Sens B-Natriuretic Peptide Total Protein Albumin Urine Color Urine Appearance Urine pH Ur Specific [place] Urine Protein Urine Glucose (UA) Urine Ketones Urine Blood Urine Nitrite Ur Leukocyte Esterase Urine RBC Urine WBC Ur Squamous Epith Cells Urine Bacteria Hyaline Casts Urine Opiates Screen Not Detected Urine Fentanyl Screen Not Detected Ur Barbiturates Screen Not Detected Ur Phencyclidine Scrn Not Detected Ur Amphetamines Screen Not Detected U Benzodiazepines Scrn Not Detected Urine Cocaine Screen Not Detected U Marijuana (THC) Screen Not Detected Ethyl Alcohol COVID-19 (TAMI) COVID-19 Clin Com Assessment and Plan (1) CHF exacerbation: Status: Acute (2) JAMIE (acute kidney injury): Status: Acute (3) Hyperkalemia: Status: Acute Plan 87-year-old male with a PMH significant for?HTN, CHF with preserved EF, persistent AFib, and BPH who presents to the ED with?worsening SOB for the past few days. Pt will be admitted to the hospital for treatment and further evaluation of acute SOB without hypoxia. acute on chronic congestive heart failure with preserved EF, sings of more fluid overload Startomg IV Lasix drip, monitor electorlyes, echo VQ scan to rule out PE Hyperkalemia 6, down to 5.4 after lokelma, repeat lab tomorrow JAMIE on CKD2--? cardiorenal , monitor Cr while on diuretics, if worse renal consult Persistent AFib--metoprolol for rate,OAC with coumadin, monitor INR subtherapeutic d/t non compliance HTN--Continue amlodipine DNR/DNI DVT Prophylaxis: On warfarin Need for inpatient: acute heart failure needing IV diuretics,and JAMIE Time Spent With Patient Time: Total time managing care of this patient today ____ minutes. Quality Stroke Does the patient have a stroke diagnosis?: No VTE Prior VTE?: No VTE Risk Level:: Medical - moderate - high VTE Device Contraindication: Treatment Not Indicated VTE Drug Contraindication: N/A - Med Ordered
[2022-11-06 08:34] LABS: INTERNATIONAL NORM RATIO 1.6 (0.9-1.1); Prothrombin Time 18.6 SEC (10.0-13.1)
[2022-11-06 08:35] LABS: Hematocrit 32.5 % (42.0-52.0); Hemoglobin 10.3 g/dl (14.0-18.0); Mean Corpuscular HGB Conc 31.7 g/dl (31.0-36.0); Mean Corpuscular Hemoglobin 29.3 pg (27.0-33.0); Mean Corpuscular Volume 92.6 fL (80.0-98.0); Mean Platelet Volume 10.6 fL (9.4-12.4); Platelet Count 204 X10*3/uL (160-400); Red Blood Count 3.51 X10*6/uL (4.60-5.80); Red Cell Distribution Width 18.2 % (11.0-16.0); White Blood Count 9.2 X10*3/uL (4.8-10.8)
[2022-11-06 08:46] LABS: Anion Gap 16 (12-20); Blood Urea Nitrogen 91 mg/dL (9-16); Calcium 8.7 mg/dL (8.4-10.2); Carbon Dioxide 21 mmol/L (22-29); Chloride 105 mmol/L (96-108); Estimated Glomerular Filt Rate 21; Glucose Random 100 mg/dL (60-115); Magnesium 2.9 mg/dL (1.6-2.6); Potassium 5.4 mmol/L (3.3-5.1); Sodium 137 mmol/L (135-145)
[2022-11-06 08:54] LABS: B Type Natriuretic Peptide 2091 pg/mL (<100)
[2022-11-06] MEDS: amLODIPine Besylate 10 MG TABLET PO (09:47)
[2022-11-06] MEDS: Metoprolol Succinate ER 100 MG TAB.ER.24H PO (09:47)
[2022-11-06] MEDS: 0.9 % Sodium Chloride Flush 3 ML SYRINGE IVFLUSH (09:47)
--- NOTE | 2022-11-06 11:00 | CA_ITS ---
Transthoracic Echocardiogram Patient (Last, First, Middle): Thierry Edwards K Gender: Male Date of : 1935 Age: 87 Procedure Date: 11/06/2022 Procedure Type: Transthoracic Echocardiogram Location: [facility] [place] Height: 175.26 cm Weight: 97.98 kg BSA: 2.13 m2 Heart Rate: 70 bpm BP: 114 / 71 mmHg Production Control Coordinator: ERIN Referring MD: Agnel Churchill MD Thermo Processor: Eduardo Crook MD Symptoms: heart failure Study Quality: Adequate/Contrast ECG Rhythm: Atrial Fibrillation Conclusions: - 1. Normal LV systolic function with moderate LVH with restrictive filling pattern 2. Severely dilated right ventricle with reduced systolic function 3. Severe biatrial enlargement 4. Mild aortic regurgitation 5. Moderately elevated right ventricular systolic pressure and significant with right atrial pressures Findings Procedure Information Contrast agent, definity, is being given per protocol without apparent complications. Left Ventricle Normal left ventricular cavity size. There is moderately increased left ventricular wall thickness. The left ventricular systolic function is normal. The visually estimated ejection fraction is between 55-60%. Spectral Doppler is indicative of a restrictive filling pattern. Elevated filling pressures. E/E prime ratio is >15, consistent with elevated filling pressures. Evidence suggests grade III (severe) diastolic dysfunction. Right Ventricle Severely increased right ventricular cavity size. Atria The left atrium is severely dilated. Interatrial shunt cannot be excluded. The right atrium is severely dilated. Aortic Valve The aortic valve was not well visualized. There is mild calcification of the aortic valve. There is no aortic valve stenosis. There is mild aortic valve regurgitation. Mitral Valve There is mild anterior and posterior mitral leaflet thickening. There is mild mitral annular calcification. There is trace mitral valve regurgitation. There is no mitral valve stenosis. Pulmonic Valve The pulmonic valve was not well visualized. There is mild pulmonic valve regurgitation. Tricuspid Valve Normal tricuspid valve structure. There is mild to moderate tricuspid valve regurgitation. Significantly elevated right atrial pressure. Moderate pulmonary hypertension is present. Great Vessels The pulmonary artery was not well visualized. There is mild dilatation of the ascending aorta measuring 4.30 cm. Venous The inferior vena cava is moderately dilated and does not collapse with inspiration. Pericardium/Pleural There is a trivial pericardial effusion. Prior Study Comparison No significant change compared to prior study dated: 10/08/2021. Measurements 2D Linear Measurements IVSd: 1.40 0.6-0.9/0.6-1.0 cm LVIDd: 4.22 3.9-5.3/4.2-5.9 cm LVIDd Index: 1.98 2.4-3.2/2.2-3.1 cm/m2 LVIDs: 2.83 2.0-3.6 cm LVPWd: 1.40 0.7-1.1 cm LA Diam: 5.10 2.7-3.8/3.0-4.0 cm LAIDs Index: 2.39 1.5-2.3 cm/m2 LV Mass: 454.32 67-162/88-224 g LV Mass Index: 213.30 43-95/49-115 g/m2 LVOT Diam: 2.30 3.0+(-)1.3 cm 2D Systolic Function EF 4C: 59.60 >55% EF 2C: 65.50 >55% EF BiP: 61.50 >55% Mitral Valve MV Pk E: 1.32 MV Decel Time: 193.00 E'Lateral: 8.70 E'Medial: 5.55 E/E' Med: 23.80 E/E' Lat: 15.20 PHT: 56.00 MVA PHT: 3.93 Decel Power: 6.87 Aortic Valve AoV Pk [place]: 1.45 AoV Mn [place]: 0.89 AoV VTI: 0.33 AoV Pk Grad: 8.00 Aov Mn Grad: 4.00 BO Cont.VTI: 1.76 LVOT LVOT Pk [place]: 0.65 LVOT Mn [place]: 0.42 LVOT VTI: 0.14 LVOT Pk Grad: 2.00 LVOT Mn Grad: 1.00 LVOT Diam: 2.30 LVOT Area: 4.15 Diastolic Function MV Pk E: 1.32 E'Medial: 5.55 E/E' Med: 23.80 E' Laterial: 8.70 E/E' Lat: 15.20 Right Ventricle TAPSE (mm): 28.10 Tricuspid Valve TR Pk [place]: 2.90 TR Pk Grad: 34.00 RA Press: 15.00 RVSP: 49.00 Great Vessels Aorta Sinus of Valsalva: 3.80 2.0-3.5 cm Ao Asc: 4.30 2.1-3.4 cm Pulmonary Valve PV Pk [place]: 0.54 Peak PV Grad: 1.00 Updated in Other Vendor System with Status of Final Eduardo Crook MD electronically signed on 11/06/2022 3:51:12 PM with status of Final
--- NOTE | 2022-11-06 11:08 | PM.CNCAR ---
History of Present Illness History of Present Illness Date of Service: 11/06/22 Requesting physician: [facility] Consult reason: atrial fibrillation and congestive heart failure Chief complaint: SOB Narrative: I was consulted to see Thierry in cardiology consultation today due to worsening shortness of breath hypoxic respiratory failure. Thierry is 87 year male with chronic persistent atrial fibrillation, heart failure preserved ejection fraction, poor follow-up as outpatient with prior hospitalization due to heart failure. No follow-up since then. I had seen him in the hospital about couple months ago. Patient says he came to the hospital because he got suddenly short of breath with leg edema. He had notices abdominal distension but this is not very bothersome to him. No fast heart rate palpitations or lightheadedness. He continues to remain short of breath says but feels a lot better than when he came in. Most likely digoxin therapy. Noted to have acute kidney injury with worsening creatinine with diuresis. Intake and output chart again has not been well maintained. His heart rate remains controlled. Denies any chest pain. Patient says that he has not been always compliant and forgets sometimes to take his Lasix at home. He also does not weigh himself on a regular basis. This is despite multiple hospitalization and education regarding the same. Review of Systems Constitutional: Constitutional: Reports no additional constitutional complaints Eyes: Eyes: Reports no additional eye complaints Cardiovascular: Cardiovascular: Reports Abdominal Distension, Denies chest pain, Reports leg edema, Denies lightheadedness, Reports dyspnea, Reports dyspnea on exertion and Reports orthopnea Respiratory: Respiratory: Reports no additional respiratory complaints, Reports dyspnea and Reports dyspnea on exertion Gastrointestinal: Gastrointestinal: Reports no additional gastrointestinal complaints Musculoskeletal: Musculoskeletal: Reports no additional musculoskeletal complaints Integumentary/Breasts: Skin/Breast: Reports system reviewed and no additional complaints, except as docu Psychiatric: Psychiatric: Reports no additional psychiatric complaints Endocrine: Endocrine: Reports no additional endocrine complaints [facility] Past Medical History Medical History (HFpEF) heart failure with preserved ejection fraction Acute on chronic diastolic (congestive) heart failure BPH (benign prostatic hyperplasia) CHF (congestive heart failure) CHF (congestive heart failure) Congestive heart failure Herpes zoster, ocular HTN (hypertension) Hypertensive emergency Osteoarthritis Paroxysmal atrial fibrillation Persistent atrial fibrillation Pleural effusion Pleural effusion Pneumonitis Family History Family History Father No problems noted. Mother No problems noted. Surgical History Surgical History H/O cataract extraction History of cardioversion History of total right hip arthroplasty Status post colonoscopy with polypectomy Social History Social History Household Members: None Housing: House Do you presently have visiting nurse or other home services: No Alcohol intake: never Patient Tobacco Use Status: Never used Tobacco Tobacco use type: Cigarette Years Smoked: 18 years Smoked in Last 30 Days: No e-Cigarette/Vaping Use: Never Used Use of substances other than those prescribed or required for medical reasons: No Currently Displaying Signs/Symptoms of Drug Intoxication Withdrawal: No Have you been hit, kicked, punched, or otherwise hurt by someone within the past year? If so, by whom?: No Do you feel safe in your current relationship?: No Current Relationship Is there a partner from a previous relationship who is making you feel unsafe now?: No Are you made to feel afraid or neglected: No Advance Directives: Yes Advance Directives on File: Yes Advance Directives Date on File: 04/16/21 Do you have thoughts of harming others: None Do you have a plan to hurt others: No Plan Recently lost weight without trying: No How much weight loss: Not applicable Eating poorly because of decreased appetite: No Nutrition screen score: 0 service: No (PT DENIES BEING A ) Current occupational status: retired Meds Allergies Allergy/AdvReac Type Severity Reaction Status Date / Time No Known Allergies Allergy Mild NOT Verified 11/05/22 10:02 APPLICABLE Active Medications: Current Medications Acetaminophen (Acetaminophen 325 Mg Tablet) 650 mg PO Q6H PRN PRN Reason: Pain, Mild (Pain Scale 1-3) Amlodipine Besylate (Amlodipine Besylate 10 Mg Tablet) 10 mg PO DAILY [facility]; Protocol Last Admin: 11/06/22 09:47 Dose: 10 mg Albuterol Sulfate 2.5 mg/ (Ipratropium [place] 0.5 mg) 0 mg INHALE Q4H PRN PRN Reason: Wheezing Last Admin: 11/06/22 10:12 Dose: 2.5 each Docusate Sodium (Docusate Sodium 100 Mg Capsule) 100 mg PO DAILY PRN PRN Reason: Constipation Furosemide 200 mg/ Sodium (Chloride) 100 mls @ 5 mls/hr IVCONT .Q20H [facility] Metoprolol Succinate (Metoprolol Succinate Er 100 Mg Tab.Er.24h) 100 mg PO DAILY [facility]; Protocol Last Admin: 11/06/22 09:47 Dose: 100 mg Ondansetron HCl (Ondansetron Hcl 4 Mg/2 Ml Vial) 4 mg IVPUSH Q8H PRN PRN Reason: Nausea and Vomiting Pharmacy Consult (Consult Rx Perform Med Rec) 1 each MISCELLANE ONCE PRN PRN Reason: Consult order Sodium Chloride (0.9 % Sodium Chloride Flush 3 Ml Syringe) 3 ml IVFLUSH QSHIFT [facility] Last Admin: 11/06/22 09:47 Dose: 3 ml Warfarin Sodium (Warfarin Sodium 5 Mg Tablet) 5 mg PO SuSa@1800 [facility] Warfarin Sodium (Warfarin Sodium 10 Mg Tablet) 10 mg PO MoTuWeThFr@1800 [facility] Last Admin: 11/05/22 18:32 Dose: 10 mg Home Medications Medication Instructions Recorded Confirmed Last Taken Type metoprolol succinate 100 mg 100 mg PO DAILY 08/11/22 11/05/22 11/04/22 History tablet,extended release 24 hr warfarin 5 mg tablet (Jantoven) 10 mg PO MOTUWETHFR 08/11/22 11/05/22 11/04/22 History amlodipine 10 mg tablet 1 tab PO DAILY 11/05/22 11/05/22 11/04/22 History betamethasone dipropionate 0.05 % 1 appl topical BID PRN Rash 11/05/22 11/05/22 Unknown History lotion furosemide 40 mg tablet 1 tab PO DAILY PRN Edema 11/05/22 11/05/22 Unknown History warfarin 5 mg tablet (Jantoven) 5 mg PO SUSA 11/05/22 11/05/22 11/01/22 History Physical Exam Vital Signs: Vital Signs: Last Vital Signs Temp 97.3 F 11/06/22 08:00 Pulse 79 11/06/22 10:15 Resp 22 H 11/06/22 10:15 BP 115/62 11/06/22 08:00 Pulse Ox 90 L 11/06/22 08:00 O2 Del Method 11/06/22 08:00 O2 Flow Rate 4 11/06/22 08:00 BMI result Body Mass Index 31.9 Const: General: cooperative, comfortable, alert, awake and in distress moderate and respiratory Nutritional Appearance: overweight Orientation/consciousness: patient oriented x3 HEENT: Head: Yes normal to inspection and Yes normocephalic Neck: Neck: Yes trachea midline, Yes supple and Yes JVD Resp: Effort & Inspection: decreased respiratory effort Auscultation: crackles bilateral at the base and diminished lung sounds Cardio: Jugular venous distension: JVD Rate: regular rate Rhythm: abnormal rhythm irregularly irregular Heart sounds: S1 normal heart sound present, S2 normal heart sound present, no click, no gallops and no murmurs GI: Inspection: Yes distended Auscultation: normal bowel sounds Skin: General skin exam: no rashes or lesions noted Neuro: General: patient oriented x3 and no focal motor deficits Extrem: General: No clubbing, No cyanosis and Yes edema Psych: Appearance: grossly normal Objective Labs and Meds 11/06/22 07:44 11/06/22 07:44 Lab results: Laboratory Results - last 24 hr 11/05/22 11/05/22 11/05/22 10:00 10:00 12:22 WBC RBC Hgb Hct MCV MCH MCHC RDW Plt Count MPV Absolute Nucleated RBC Nucleated RBC % (auto) PT INR APTT 36.9 H Sodium 137 136 Potassium 6.0 H* 5.4 H Chloride 105 107 Carbon Dioxide 19 L 21 L Anion Gap 19 13 BUN 81 H 80 H Creatinine 2.41 H 2.38 H Estim Creat Clear Calc 23.8 24.1 Estimated GFR 26 26 Random Glucose 100 75 Calcium 8.9 9.1 Magnesium 2.6 Total Bilirubin 0.7 AST 13 ALT 11 Alkaline Phosphatase 94 Troponin I High Sens B-Natriuretic Peptide Total Protein 7.4 Albumin 4.4 Urine Color Urine Appearance Urine pH Ur Specific [place] Urine Protein Urine Glucose (UA) Urine Ketones Urine Blood Urine Nitrite Ur Leukocyte Esterase Urine RBC Urine WBC Ur Squamous Epith Cells Urine Bacteria Hyaline Casts Urine Opiates Screen Urine Fentanyl Screen Ur Barbiturates Screen Ur Phencyclidine Scrn Ur Amphetamines Screen U Benzodiazepines Scrn Urine Cocaine Screen U Marijuana (THC) Screen Ethyl Alcohol < 10 11/05/22 11/05/22 11/05/22 12:22 14:42 14:42 WBC RBC Hgb Hct MCV MCH MCHC RDW Plt Count MPV Absolute Nucleated RBC Nucleated RBC % (auto) PT INR APTT Sodium Potassium Chloride Carbon Dioxide Anion Gap BUN Creatinine Estim Creat Clear Calc Estimated GFR Random Glucose Calcium Magnesium Total Bilirubin AST ALT Alkaline Phosphatase Troponin I High Sens 13.9 B-Natriuretic Peptide Total Protein Albumin Urine Color Yellow Urine Appearance Clear Urine pH 5.0 Ur Specific [place] 1.010 Urine Protein 30 (1+) H Urine Glucose (UA) Negative Urine Ketones Negative Urine Blood Negative Urine Nitrite Negative Ur Leukocyte Esterase Small (1+) H Urine RBC 0-2 Urine WBC 6-10 H Ur Squamous Epith Cells 0-2 Urine Bacteria None Seen Hyaline Casts 11-20 Urine Opiates Screen Not Detected Urine Fentanyl Screen Not Detected Ur Barbiturates Screen Not Detected Ur Phencyclidine Scrn Not Detected Ur Amphetamines Screen Not Detected U Benzodiazepines Scrn Not Detected Urine Cocaine Screen Not Detected U Marijuana (THC) Screen Not Detected Ethyl Alcohol 11/06/22 11/06/22 11/06/22 07:44 07:44 07:44 WBC 9.2 RBC 3.51 L Hgb 10.3 L Hct 32.5 L MCV 92.6 MCH 29.3 MCHC 31.7 RDW 18.2 H Plt Count 204 MPV 10.6 Absolute Nucleated RBC 0.000 Nucleated RBC % (auto) 0.0 PT INR APTT Sodium 137 Potassium 5.4 H Chloride 105 Carbon Dioxide 21 L Anion Gap 16 BUN 91 H Creatinine 2.86 H Estim Creat Clear Calc 21.0 Estimated GFR 21 Random Glucose 100 Calcium 8.7 Magnesium 2.9 H Total Bilirubin AST ALT Alkaline Phosphatase Troponin I High Sens B-Natriuretic Peptide 2091 H Total Protein Albumin Urine Color Urine Appearance Urine pH Ur Specific [place] Urine Protein Urine Glucose (UA) Urine Ketones Urine Blood Urine Nitrite Ur Leukocyte Esterase Urine RBC Urine WBC Ur Squamous Epith Cells Urine Bacteria Hyaline Casts Urine Opiates Screen Urine Fentanyl Screen Ur Barbiturates Screen Ur Phencyclidine Scrn Ur Amphetamines Screen U Benzodiazepines Scrn Urine Cocaine Screen U Marijuana (THC) Screen Ethyl Alcohol 11/06/22 07:44 WBC RBC Hgb Hct MCV MCH MCHC RDW Plt Count MPV Absolute Nucleated RBC Nucleated RBC % (auto) PT 18.6 H INR 1.6 H APTT Sodium Potassium Chloride Carbon Dioxide Anion Gap BUN Creatinine Estim Creat Clear Calc Estimated GFR Random Glucose Calcium Magnesium Total Bilirubin AST ALT Alkaline Phosphatase Troponin I High Sens B-Natriuretic Peptide Total Protein Albumin Urine Color Urine Appearance Urine pH Ur Specific [place] Urine Protein Urine Glucose (UA) Urine Ketones Urine Blood Urine Nitrite Ur Leukocyte Esterase Urine RBC Urine WBC Ur Squamous Epith Cells Urine Bacteria Hyaline Casts Urine Opiates Screen Urine Fentanyl Screen Ur Barbiturates Screen Ur Phencyclidine Scrn Ur Amphetamines Screen U Benzodiazepines Scrn Urine Cocaine Screen U Marijuana (THC) Screen Ethyl Alcohol EKG shows atrial fibrillation right bundle-branch block, unchanged from before Assessment and Plan (1) CHF exacerbation: Status: Acute Patient with known chronic atrial fibrillation as well as heart failure preserved ejection fraction comes with heart failure exacerbation and acute kidney injury probably cardiorenal syndrome. This is due to noncompliance instructions as well as diuretic regimen. Prognosis is guarded given his kidney injury. Appears to be clinically fluid overloaded. Would diuresing with Lasix drip. Strict intake and output chart needs to be pursued. This is very important this patient to help manage his heart failure syndrome. Remains hypoxic despite diuresis is and subtherapeutic INR need to rule out pulmonary thromboembolism. Continue supportive care. Continue current rate control regimen. Continue to monitor renal function closely. Consider Nephrology consultation. Continue oral anticoagulation for his atrial fibrillation. Will continue to follow with you Time Spent With Patient Time: Total time managing care of this patient today ____ minutes. Procedures Date of Service Date of Service: 11/06/22
[2022-11-06] MEDS: Furosemide 200 MG in 0.9 % Sodium Chloride 80 ML IVCONT (11:21)
[2022-11-06] MEDS: Sodium Zirconium Cyclosilicate 10 GM POWD.PACK PO (11:22)
--- NOTE | 2022-11-06 15:09 | MHC.CM.PN ---
met with pt whose dgter lives next door and helps him daily he is covid vax has own ride home he does not expect to need servceis when dcd dc plan home no servceis
[2022-11-06] MEDS: Warfarin Sodium 10 MG TABLET PO (17:17)
[2022-11-07 04:00] VITALS: BP 115/65; PULSE 79; RESP 20; TEMP 36.2; O2SAT 92
[2022-11-07] MEDS: Furosemide 200 MG in 0.9 % Sodium Chloride 80 ML IVCONT (04:16)
[2022-11-07 05:12] LABS: Creatinine Urine 90.47 mg/dL; Microalbum/Creatinine Ratio Ur 141.4 ug/mg cr; Sodium Urine Random < 20.0 mmol/L; Total Protein Urine Random 24 mg/dL (<12)
--- NOTE | 2022-11-07 05:20 | CONS_ITS ---
DATE OF SERVICE: 11/06/2022 REASON FOR CONSULTATION: I was asked to see patient to assist in evaluation and management of patient's acute kidney injury as reflected by a serum creatinine is 2.86 today and was 2.4 on admission yesterday where his baseline creatinine is around 1. HISTORY OF PRESENT ILLNESS: In summary, the patient is an 87-year-old gentleman who presents to the hospital complaining of shortness of breath. He has an extensive past medical history including hypertension, heart failure with preserved EF, persistent atrial fibrillation, BPH, who again was experiencing increasing shortness of breath. He also noted some fluid retention and swelling. He tells me he is feeling better today. He denies any gross hematuria and dysuria. PAST MEDICAL HISTORY: As mentioned above. MEDICATIONS: His medications on admission are noted in the admitting notes and in particular include Lasix 40 mg once a day. His current medications are noted in the MAR include the diuretics as noted. ALLERGIES: HE HAS NO KNOWN DRUG ALLERGIES. SOCIAL HISTORY: He is a nonsmoker, nondrinker. No illicit drug use. FAMILY HISTORY: Noncontributory. REVIEW OF SYSTEMS: As noted above. PHYSICAL EXAMINATION: VITAL SIGNS: Blood pressure of 130/60 with a heart rate in the 70s. HEAD: Atraumatic and normocephalic. NECK: Supple. ENT: Mucous membranes are moist. No JVD. LUNGS: Breath sounds bilaterally diminished at the bases. CARDIAC: Regular rate and rhythm. ABDOMEN: Soft, nontender. No CVA tenderness. EXTREMITIES: 1 to 2+ edema. There is no asterixis. I was able to ultrasound his IVC, which showed there was 3 cm and was not collapsible. LABORATORY DATA: Labs from today showed hemoglobin 10.3, hematocrit 32.5, white blood cell count 9.2, platelet count 204. Sodium 137, potassium 5.4, chloride 105, bicarb 21, BUN 91, creatinine 2.86. BNP level of 2090. As mentioned on admission, his creatinine was 2.4 back in August 2022, his creatinine was 1.16. He had urinalysis done, which showed 1+ protein, otherwise few white blood cells in the UA, otherwise negative. IMPRESSION: 87-year-old with acute kidney injury, shortness of breath. 1. Acute kidney injury. I suspect this is due to cardiorenal syndrome. He is having a cardiac cath . Full echo results are pending and not completed yet. Other considerations for acute kidney injury looked into and I will order serologic and urine studies to further evaluate this. Our hopes are with diuresis of renal function. 2. Shortness of breath. Presumably due to fluid overload, although his BNP is not that elevated and chest x-ray was not that abnormal. He did have a perfusion scan which showed no segmental perfusion deficits. He is going to have further evaluation. 3. History of heart failure, preserved ejection fraction. He has had a repeat echo will see what the results of that show. RECOMMENDATIONS: At this time include continue with diuresis on a continuous Lasix drip. Avoid nephrotoxins. Follow renal function. Further serologic and urine studies as noted. We will also obtain a renal ultrasound to rule out obstructive uropathy. MD VINCE Ricci/[place] / [phone]
[2022-11-07 06:45] LABS: INTERNATIONAL NORM RATIO 2.2 (0.9-1.1)
[2022-11-07 08:00] VITALS: BP 112/58; PULSE 76; RESP 18; TEMP 36.8; O2SAT 94
[2022-11-07 08:47] LABS: Anion Gap 17 (12-20); Blood Urea Nitrogen 94 mg/dL (9-16); Calcium 8.4 mg/dL (8.4-10.2); Carbon Dioxide 20 mmol/L (22-29); Chloride 104 mmol/L (96-108); Estimated Glomerular Filt Rate 20; Glucose Random 104 mg/dL (60-115); Sodium 136 mmol/L (135-145)
[2022-11-07] MEDS: Metoprolol Succinate ER 100 MG TAB.ER.24H PO (10:05)
[2022-11-07] MEDS: amLODIPine Besylate 10 MG TABLET PO (10:05)
[2022-11-07] MEDS: 0.9 % Sodium Chloride Flush 3 ML SYRINGE IVFLUSH ×2 (10:06→17:33)
--- NOTE | 2022-11-07 11:34 | P.PNIM_ITS ---
Subjective Subjective Date of Service: 11/07/22 Interval History: f/u on heart failure exacerbation Still with sob, increase wob and fluid overloaded Physical Exam Vital Signs: Vital Signs: Last Vital Signs Temp 98.2 F 11/07/22 08:00 Pulse 76 11/07/22 08:00 Resp 18 11/07/22 08:00 BP 112/58 L 11/07/22 08:00 Pulse Ox 94 11/07/22 08:00 O2 Del Method 11/07/22 04:00 O2 Flow Rate 4 11/07/22 04:00 BMI result Body Mass Index 31.9 Const: Other: General: AO X 3, no acute distress Resp: CTA bilateral CVS: S1,S2,RRR, gissell leg edema GI: +BS, NT, no distention Skin: No rash Neuro: motor grossly intact Psych: appropriate affect Objective Data Active Medications Acetaminophen (Acetaminophen 325 Mg Tablet) 650 mg PO Q6H PRN PRN Reason: Pain, Mild (Pain Scale 1-3) Amlodipine Besylate (Amlodipine Besylate 10 Mg Tablet) 10 mg PO DAILY [facility]; Protocol Last Admin: 11/07/22 10:05 Dose: 10 mg Documented By: SUSIE Albuterol Sulfate 2.5 mg/ (Ipratropium [place] 0.5 mg) 0 mg INHALE Q4H PRN PRN Reason: Wheezing Last Admin: 11/06/22 21:27 Dose: 2.5 each Documented By: TAL Docusate Sodium (Docusate Sodium 100 Mg Capsule) 100 mg PO DAILY PRN PRN Reason: Constipation Furosemide 200 mg/ Sodium (Chloride) 100 mls @ 5 mls/hr IVCONT .Q20H [facility] Last Admin: 11/07/22 04:16 Dose: 10 mg/hr, 5 mls/hr Documented By: LOC Metolazone (Metolazone 5 Mg Tablet) 5 mg PO ONCE ONE Stop: 11/07/22 11:34 Metoprolol Succinate (Metoprolol Succinate Er 100 Mg Tab.Er.24h) 100 mg PO DAILY [facility]; Protocol Last Admin: 11/07/22 10:05 Dose: 100 mg Documented By: SUSIE Ondansetron HCl (Ondansetron Hcl 4 Mg/2 Ml Vial) 4 mg IVPUSH Q8H PRN PRN Reason: Nausea and Vomiting Pharmacy Consult (Consult Rx Perform Med Rec) 1 each MISCELLANE ONCE PRN PRN Reason: Consult order Sodium Chloride (0.9 % Sodium Chloride Flush 3 Ml Syringe) 3 ml IVFLUSH QSHIFT [facility] Last Admin: 11/07/22 10:06 Dose: 3 ml Documented By: SUSIE Warfarin Sodium (Warfarin Sodium 5 Mg Tablet) 5 mg PO SuSa@1800 [facility] Warfarin Sodium (Warfarin Sodium 10 Mg Tablet) 10 mg PO MoTuWeThFr@1800 [facility] Last Admin: 11/06/22 17:17 Dose: 10 mg Documented By: JENNIFER Labs 11/06/22 07:44 11/07/22 05:51 Labs: Laboratory Results - last 24 hr 11/07/22 11/07/22 11/07/22 02:15 05:51 05:51 PT 26.0 H INR 2.2 H Anion Gap 17 Estim Creat Clear Calc 20.0 Estimated GFR 20 Random Glucose 104 Calcium 8.4 U Random Total Protein 24 H Ur Random Sodium < 20.0 Urine Creatinine 90.47 Urine Microalbumin 128.0 Microalb/Creat Ratio 141.4 Microbiology Microbiology Results: Microbiology 11/05/22 15:01 Urine Culture - Final Urine clean catch - Urine navarro top No growth. Assessment and Plan (1) CHF exacerbation: Status: Acute (2) JAMIE (acute kidney injury): Status: Acute (3) Hyperkalemia: Status: Acute Plan 87-year-old male with a PMH significant for?HTN, CHF with preserved EF, persistent AFib, and BPH who presents to the ED with?worsening SOB for the past few days. Pt will be admitted to the hospital for treatment and further evaluation of acute SOB without hypoxia. acute on chronic congestive heart failure with preserved EF, sings of more fluid overload Continue IV Lasix drip, monitor electorlyes, echo..Add Metolazone 5 once VQ scan negative or PE Hyperkalemia 6, down to 5.0 after lokelma, repeat lab tomorrow JAMIE on CKD2--? cardiorenal , monitor Cr while on diuretics, if worse renal consult Persistent AFib--metoprolol for rate,OAC with coumadin, monitor INR 2.2 HTN--Continue amlodipine DNR/DNI DVT Prophylaxis: warfarin Need for inpatient: acute heart failure needing IV diuretics,and JAMIE Time Spent With Patient Time: Total time managing care of this patient today ____ minutes. Quality Stroke Does the patient have a stroke diagnosis?: No VTE Prior VTE?: No VTE Risk Level:: Medical - moderate - high VTE Device Contraindication: Treatment Not Indicated VTE Drug Contraindication: N/A - Med Ordered
[2022-11-07 12:00] VITALS: BP 121/60; PULSE 74; RESP 16; TEMP 36.6
--- NOTE | 2022-11-07 12:14 | P.PNCA_ITS ---
Subjective Subjective Date of Service: 11/07/22 Principal diagnosis: CHF, atrial fibrillation Interval history: Patient has tepid diuresis. Creatinine is further increase. Says he feels a lot better compared to when he came in. Still has leg edema. Still appears to be short of breath Review of Systems Constitutional: Reports no additional constitutional complaints Cardiovascular: Denies chest pain, Reports leg edema, Denies palpitations and Reports dyspnea Respiratory: Reports dyspnea Gastrointestinal: Reports no additional gastrointestinal complaints Reports system reviewed and no additional complaints, except as documented Endocrine: Reports no additional endocrine complaints and Denies palpitations Physical Exam Vital Signs: Last Vital Signs Temp 98.2 F 11/07/22 08:00 Pulse 76 11/07/22 08:00 Resp 18 11/07/22 08:00 BP 112/58 L 11/07/22 08:00 Pulse Ox 94 11/07/22 08:00 O2 Del Method 11/07/22 04:00 O2 Flow Rate 4 11/07/22 04:00 BMI result Body Mass Index 31.9 Const General: cooperative, comfortable, alert, awake and in distress mild and respiratory Nutritional Appearance: obese Orientation/consciousness: patient oriented x3 Neck Neck: Yes trachea midline, Yes supple and Yes JVD Resp Effort & Inspection: normal respiratory effort Auscultation: diminished lung sounds Cardio Jugular venous distension: JVD Rate: regular rate Rhythm: abnormal rhythm irregularly irregular Heart sounds: S1 normal heart sound present, S2 normal heart sound present, no click, no gallops and no murmurs Skin General skin exam: no rashes or lesions noted Neuro General: patient oriented x3 Extrem General: No clubbing, No cyanosis and Yes edema Objective Labs and Meds 11/06/22 07:44 11/07/22 05:51 Lab results: Laboratory Results - last 24 hr 11/07/22 11/07/22 11/07/22 02:15 05:51 05:51 PT 26.0 H INR 2.2 H Sodium 136 Potassium 5.0 Chloride 104 Carbon Dioxide 20 L Anion Gap 17 BUN 94 H Creatinine 3.00 H Estim Creat Clear Calc 20.0 Estimated GFR 20 Random Glucose 104 Calcium 8.4 U Random Total Protein 24 H Ur Random Sodium < 20.0 Urine Creatinine 90.47 Urine Microalbumin 128.0 Microalb/Creat Ratio 141.4 Imaging Radiologist's impression: Impressions Pulmonary Perfusion Imaging 11/06/22 16:30 IMPRESSION: Very low probability of pulmonary embolism. Progress Note: A&P Assessment and plan (1) CHF exacerbation: Status: Acute Assessment and Plan: CHF, with tepid diuretic response. Continue Lasix drip. Add metolazone 1 dose today. Strict intake and output chart needs to be pursued. Continue to monitor renal function closely. Clinically still appears to be fluid overloaded. Over all prognosis guarded given his acute kidney injury. Discussed with him. Continue supportive care. Incentive spirometry. Out of bed to chair. (2) Persistent atrial fibrillation: Status: Acute Assessment and Plan: Persistent rate control atrial fibrillation. Continue rate control. Has failed rhythm control approach. Continue full oral anticoagulation warfarin. INR currently 2.2. Will continue to follow with you. Time Spent With Patient Time: Total time managing care of this patient today ____ minutes. Progress Note: Quality Stroke Does the patient have a stroke diagnosis?: No Procedures Date of Service Date of Service: 11/07/22
[2022-11-07] MEDS: metOLazone 5 MG TABLET PO (12:57)
--- NOTE | 2022-11-07 14:15 | P.PNNP_ITS ---
Subjective Subjective Date of Service: 11/07/22 Principal diagnosis: CHF, atrial fibrillation Interval history: Seen and examined, events noted Physical Exam Vital Signs: Vital Signs: Last Vital Signs Temp 97.9 F 11/07/22 12:00 Pulse 74 11/07/22 12:00 Resp 16 11/07/22 12:00 BP 121/60 11/07/22 12:00 Pulse Ox 94 11/07/22 08:00 O2 Del Method 11/07/22 04:00 O2 Flow Rate 4 11/07/22 04:00 BMI result Body Mass Index 31.9 Const: Other: General: AO X 3, no acute distress Resp: CTA bilateral CVS: S1,S2,RRR, gissell leg edema GI: +BS, NT, no distention Skin: No rash Neuro: motor grossly intact Psych: appropriate affect General: cooperative, comfortable, alert, awake and in distress mild and respiratory Nutritional Appearance: obese and overweight Orientatio n/consciousness: patient oriented x3 HEENT: Head: Yes normal to inspection and Yes normocephalic Neck: Neck: Yes trachea midline, Yes supple and Yes JVD Resp: Effort & Inspection: normal respiratory effort and decreased respiratory effort Auscultation: crackles bilateral at the base and diminished lung sounds Cardio: Jugular venous distension: JVD Rate: regular rate Rhythm: abnormal rhythm irregularly irregular Heart sounds: S1 normal heart sound present, S2 normal heart sound present, no click, no gallops and no murmurs GI: Inspection: Yes distended Auscultation: normal bowel sounds Skin: General skin exam: no rashes or lesions noted Neuro: General: patient oriented x3 and no focal motor deficits Extrem: General: No clubbing, No cyanosis and Yes edema Psych: Appearance: grossly normal Objective Data Labs 11/06/22 07:44 11/07/22 05:51 Labs: Laboratory Results - last 24 hr 11/07/22 11/07/22 11/07/22 02:15 05:51 05:51 PT 26.0 H INR 2.2 H Sodium 136 Potassium 5.0 Chloride 104 Carbon Dioxide 20 L Anion Gap 17 BUN 94 H Creatinine 3.00 H Estim Creat Clear Calc 20.0 Estimated GFR 20 Random Glucose 104 Calcium 8.4 U Random Total Protein 24 H Ur Random Sodium < 20.0 Urine Creatinine 90.47 Urine Microalbumin 128.0 Microalb/Creat Ratio 141.4 Microbiology Microbiology Results: Microbiology 11/05/22 15:01 Urine clean catch - Urine navarro top Urine Culture - Final No growth. Procedures Date of Service Date of Service: 11/07/22 Assessment & Plan Assessment and plan (1) CHF exacerbation: Status: Acute (2) Persistent atrial fibrillation: Status: Acute Plan - JAMIE: still most c/w CRSyn but need to R/O Obs Uropathy ( needs formal u/s and bedside bladder scan) - SOB: surprisingly CXR does not show CHF and BNP not markedley elevated, IVC 3 cm and signif RH dysfunc;on lasix drip but ques diuresis REC: u/s kidney, bladder scan, track UOP/renal func; cont diuresis; no indication for TRAIN ATTENDANT at this time Time Spent With Patient Time: Total time managing care of this patient today ____ minutes. Progress Note: Quality Stroke Does the patient have a stroke diagnosis?: No
[2022-11-07 15:50] VITALS: BP 137/74; PULSE 88; RESP 19; TEMP 32.9; O2SAT 93
[2022-11-07] MEDS: Warfarin Sodium 5 MG TABLET PO (17:33)
[2022-11-07 20:00] VITALS: BP 100/62; PULSE 80; RESP 18; TEMP 36.3; O2SAT 90
[2022-11-07] MEDS: Acetaminophen 325 MG TABLET 650 MG PO (21:12)
[2022-11-07] MEDS: Morphine Sulfate 2 MG/ML CARTRIDGE IVPUSH (21:15)
[2022-11-07] MEDS: Furosemide 20 MG/2 ML VIAL IVPUSH (21:16)
[2022-11-07 23:57] VITALS: BP 108/66; PULSE 78; RESP 18; TEMP 36.6; O2SAT 93
[2022-11-08] VITALS (7 sets, daily range): BP systolic 109–130; BP diastolic 57–84; PULSE 68–90; RESP 15–21; TEMP 36.2–36.9; O2SAT 92–99
[2022-11-08] MEDS: Morphine Sulfate 2 MG/ML CARTRIDGE IVPUSH (00:12)
[2022-11-08] MEDS: OLANZapine 10 MG VIAL IM (00:13)
[2022-11-08] MEDS: Furosemide 200 MG in 0.9 % Sodium Chloride 80 ML IVCONT ×2 (00:19→20:42)
[2022-11-08] MEDS: 0.9 % Sodium Chloride Flush 3 ML SYRINGE IVFLUSH ×4 (01:07→20:43)
--- NOTE | 2022-11-08 06:35 | PC.NURSE ---
ASSUMED CARE OF PT AT 1900. PT A&O X3. VERY SOB ON EXERTION. LASIX DRIP AT 10 MG/HR. IV SITE LEFT HAND D/C'D DUE TO LEAKING AT SITE. NEW IV STARTED RIGHT FOREARM. PT DEVELOPED INCREASED RESP DISTRESS AROUND THE TIME OF THE IV RESTART WITH O2 SATS 88-90% ON 5L NC AND LUNGS WITH CRACKLES THROUGHOUT ALL HAHN. MD WAS NOTIFIED AND EXTRA 20 MG IV LASIX GIVEN IT WAS ASSUMED PT WAS NOT RECEIVING THE FULL 10 MG/HR VIA IV. PT ALSO RECEIVED MORPHINE 2 MG IV WITH GOOD EFFECT ON BREATHING AND VELAZQUEZ CATH WAS INSERTED TO PREVENT OVER EXERTION. PT TANESHA CATH INSERT WITHOUT COMPLAINTS. LATER IN THE SHIFT HE KEPT TRYING TO GET OOB C/O BACK AND HIP PAIN. HE WAS RESTLESS. MD NOTIFIED AND PT RECEIVED MORPHINE AGAIN AND ZYPREXA WITH GOOD EFFECT. HE SLEPT OFF AND ON IN NAPS AND IS AWAKE NOW AND FEELS GOOD. COMPLETE BEDBATH GIVEN. PT BRUSHED HIS OWN TEETH. NO RESP DISTRESS NOTED.
[2022-11-08 07:52] LABS: INTERNATIONAL NORM RATIO 2.6 (0.9-1.1); Prothrombin Time 30.8 SEC (10.0-13.1)
[2022-11-08 08:00] LABS: Anion Gap 16 (12-20); Blood Urea Nitrogen 101 mg/dL (9-16); Calcium 8.3 mg/dL (8.4-10.2); Carbon Dioxide 22 mmol/L (22-29); Chloride 102 mmol/L (96-108); Creatinine Clr Calc Pharmacy 22.4; Estimated Glomerular Filt Rate 23; Glucose Random 94 mg/dL (60-115); Potassium 4.2 mmol/L (3.3-5.1); Sodium 136 mmol/L (135-145)
[2022-11-08] MEDS: amLODIPine Besylate 10 MG TABLET PO (08:24)
[2022-11-08] MEDS: Metoprolol Succinate ER 100 MG TAB.ER.24H PO (08:24)
--- NOTE | 2022-11-08 10:03 | HO.PM.IMPN ---
Subjective Subjective Date of Service: 11/08/22 Interval History: f/u on heart failure exacerbation report feeling much better, diuresing better Physical Exam Vital Signs: Vital Signs: Last Vital Signs Temp 98.1 F 11/08/22 07:26 Pulse 83 11/08/22 07:26 Resp 18 11/08/22 07:26 BP 109/58 L 11/08/22 07:26 Pulse Ox 99 11/08/22 07:26 O2 Del Method 11/08/22 07:26 O2 Flow Rate 5 11/08/22 07:26 BMI result Body Mass Index 31.9 Const: Other: General: AO X 3, no acute distress Resp: CTA bilateral CVS: S1,S2,RRR, gissell leg edema about 2+ GI: +BS, NT, no distention Skin: No rash Neuro: motor grossly intact Psych: appropriate affect Objective Data Active Medications Acetaminophen (Acetaminophen 325 Mg Tablet) 650 mg PO Q6H PRN PRN Reason: Pain, Mild (Pain Scale 1-3) Last Admin: 11/07/22 21:12 Dose: 650 mg Documented By: BEAR Amlodipine Besylate (Amlodipine Besylate 10 Mg Tablet) 10 mg PO DAILY [facility]; Protocol Last Admin: 11/08/22 08:24 Dose: 10 mg Documented By: SUSIE Albuterol Sulfate 2.5 mg/ (Ipratropium [place] 0.5 mg) 0 mg INHALE Q4H PRN PRN Reason: Wheezing Last Admin: 11/06/22 21:27 Dose: 2.5 each Documented By: TAL Docusate Sodium (Docusate Sodium 100 Mg Capsule) 100 mg PO DAILY PRN PRN Reason: Constipation Furosemide 200 mg/ Sodium (Chloride) 100 mls @ 5 mls/hr IVCONT .Q20H LUPE Last Admin: 11/08/22 00:19 Dose: 10 mg/hr, 5 mls/hr Documented By: BEAR Metoprolol Succinate (Metoprolol Succinate Er 100 Mg Tab.Er.24h) 100 mg PO DAILY [facility]; Protocol Last Admin: 11/08/22 08:24 Dose: 100 mg Documented By: SUSIE Ondansetron HCl (Ondansetron Hcl 4 Mg/2 Ml Vial) 4 mg IVPUSH Q8H PRN PRN Reason: Nausea and Vomiting Pharmacy Consult (Consult Rx Perform Med Rec) 1 each MISCELLANE ONCE PRN PRN Reason: Consult order Sodium Chloride (0.9 % Sodium Chloride Flush 3 Ml Syringe) 3 ml IVFLUSH QSHIFT [facility] Last Admin: 11/08/22 08:24 Dose: 3 ml Documented By: SUSIE Warfarin Sodium (Warfarin Sodium 2 Mg Tablet) 2 mg PO DAILY@1800 LUPE Stop: 11/08/22 18:01 Warfarin Sodium (Warfarin Sodium 5 Mg Tablet) 5 mg PO SuSa@1800 [facility] Last Admin: 11/07/22 17:33 Dose: 5 mg Documented By: SUSIE Warfarin Sodium (Warfarin Sodium 10 Mg Tablet) 10 mg PO MoTuWeThFr@1800 [facility] Last Admin: 11/06/22 17:17 Dose: 10 mg Documented By: JENNIFER Labs 11/06/22 07:44 11/08/22 06:50 Labs: Laboratory Results - last 24 hr 11/08/22 11/08/22 06:50 06:50 PT 30.8 H INR 2.6 H Anion Gap 16 Estim Creat Clear Calc 22.4 Estimated GFR 23 Random Glucose 94 Calcium 8.3 L Assessment and Plan (1) CHF exacerbation: Status: Acute (2) JAMIE (acute kidney injury): Status: Acute (3) Hyperkalemia: Status: Acute Plan 87-year-old male with a PMH significant for?HTN, CHF with preserved EF, persistent AFib, and BPH who presents to the ED with?worsening SOB for the past few days. Pt will be admitted to the hospital for treatment and further evaluation of acute SOB without hypoxia. acute on chronic congestive heart failure with preserved EF, sings of more fluid overload Continue IV Lasix drip, monitor electorlyes, echo / EF 55-60 VQ scan negative or PE Hyperkalemia 6, resolved. 4.2 now JAMIE on CKD2--? cardiorenal , Creatinine is better today, monitor Cr while on diuretics, if worse renal consult Persistent AFib--metoprolol for rate control, ,OAC with coumadin, monitor INR 2.6, reduce couamadin HTN--Continue amlodipine DNR/DNI DVT Prophylaxis: warfarin Need for inpatient: acute heart failure needing IV diuretics,and JAMIE Time Spent With Patient Time: Total time managing care of this patient today ____ minutes. Quality Stroke Does the patient have a stroke diagnosis?: No VTE Prior VTE?: No VTE Risk Level:: Medical - moderate - high VTE Device Contraindication: Treatment Not Indicated VTE Drug Contraindication: N/A - Med Ordered
--- NOTE | 2022-11-08 12:09 | P.PNCA_ITS ---
Subjective Subjective Date of Service: 11/08/22 Principal diagnosis: CHF, atrial fibrillation Interval history: Patient feeling a lot better today says. He shortness of breath. Blood pressure is stable. Heart rate remained stable. Has diuresed well with extra m etolazone and renal function is actually improved. Leg edema is improving. Review of Systems Constitutional: Reports no additional constitutional complaints Cardiovascular: Denies chest pain, Reports leg edema (Improving), Denies palpitations and Reports dyspnea (Improving) Respiratory: Reports no additional respiratory complaints and Reports dyspnea (Improving) Genitourinary: Reports no additional male genitourinary complaints Skin/Breast: Reports system reviewed and no additional complaints, except as docu Reports system reviewed and no additional complaints, except as documented Endocrine: Denies palpitations Physical Exam Vital Signs: Last Vital Signs Temp 98.0 F 11/08/22 11:33 Pulse 68 11/08/22 11:33 Resp 18 11/08/22 11:33 BP 130/64 11/08/22 11:33 Pulse Ox 97 11/08/22 11:33 O2 Del Method 11/08/22 11:30 O2 Flow Rate 5 11/08/22 07:26 BMI result Body Mass Index 31.9 Const General: cooperative, comfortable, alert, awake and in distress mild and respiratory Nutritional Appearance: obese Orientation/consciousness: patient oriented x3 Neck Neck: Yes trachea midline, Yes supple and Yes JVD Resp Effort & Inspection: normal respiratory effort Auscultation: diminished lung sounds Cardio Jugular venous distension: JVD Rate: regular rate Rhythm: abnormal rhythm irregularly irregular Heart sounds: S1 normal heart sound present, S2 normal heart sound present, no click, no gallops and no murmurs Skin General skin exam: no rashes or lesions noted Neuro General: patient oriented x3 Extrem General: No clubbing, No cyanosis and Yes edema Objective Labs and Meds 11/06/22 07:44 11/08/22 06:50 Lab results: Laboratory Results - last 24 hr 11/08/22 11/08/22 06:50 06:50 PT 30.8 H INR 2.6 H Sodium 136 Potassium 4.2 Chloride 102 Carbon Dioxide 22 Anion Gap 16 BUN 101 H Creatinine 2.68 H Estim Creat Clear Calc 22.4 Estimated GFR 23 Random Glucose 94 Calcium 8.3 L Imaging Radiologist's impression: Impressions Renal Ultrasound 11/07/22 14:58 IMPRESSION: 1. There are 3 cysts in the right kidney. 2. There is mild caliectasis right kidney. 3. There is mild cortical thinning left kidney. 4. There are no echogenic stones or hydronephrosis in either kidney. Progress Note: A&P Assessment and plan (1) CHF exacerbation: Status: Acute Assessment and Plan: Resistant CHF treat diuretic regimen improved to dual therapy. Continue to give 1 more dose of metolazone today. Continue IV Lasix drip. Strict intake and output chart needs to be pursued. Continue monitor renal function, course is gradually improving. Patient is feeling better. Replace electrolytes as needed. If renal function improves significantly can add Aldactone therapy to his regimen. Continue rate control strategy. Overall prognosis is guarded. Out of bed to chair and incentive spirometry. (2) Persistent atrial fibrillation: Status: Acute Assessment and Plan: Persistent rate control atrial fibrillation. Continue rate control. Has failed rhythm control. Continue full oral anticoagulation, currently on warfarin. Maintain target INR between 2 and 3. Will continue to follow with you Time Spent With Patient Time: Total time managing care of this patient today ____ minutes. Progress Note: Quality Stroke Does the patient have a stroke diagnosis?: No Procedures Date of Service Date of Service: 11/08/22
[2022-11-08] MEDS: Warfarin Sodium 2 MG TABLET PO (17:24)
--- NOTE | 2022-11-08 18:21 | P.PNNP_ITS ---
Subjective Subjective Date of Service: 11/08/22 Principal diagnosis: CHF, atrial fibrillation Interval history: Seen and examined, events noted Overall doing better,incr diuresis Physical Exam Vital Signs: Vital Signs: Last Vital Signs Temp 97.2 F 11/08/22 15:51 Pulse 84 11/08/22 15:51 Resp 15 11/08/22 15:51 BP 112/57 L 11/08/22 15:51 Pulse Ox 98 11/08/22 15:51 O2 Del Method 11/08/22 15:51 O2 Flow Rate 5 11/08/22 15:51 BMI result Body Mass Index 31.9 Const: Other: General: AO X 3, no acute distress Resp: CTA bilateral CVS: S1,S2,RRR, gissell leg edema GI: +BS, NT, no distention Skin: No rash Neuro: motor grossly intact Psych: appropriate affect General: cooperative, comfortable, alert, awake and in distress mild and respiratory Nutritional Appearance: obese and overweight Orientation/consciousness: patient oriented x3 HEENT: Head: Yes normal to inspection and Yes normocephalic Neck: Neck: Yes trachea midline, Yes supple and Yes JVD Resp: Effort & Inspection: normal respiratory effort and decreased respiratory effort Auscultation: crackles bilateral at the base and diminished lung sounds Cardio: Jugular venous distension: JVD Rate: regular rate Rhythm: abnormal rhythm irregularly irregular Heart sounds: S1 normal heart sound present, S2 normal heart sound present, no click, no gallops and no murmurs GI: Inspection: Yes distended Auscultation: normal bowel sounds Skin: General skin exam: no rashes or lesions noted Neuro: General: patient oriented x3 and no focal motor deficits Extrem: General: No clubbing, No cyanosis and Yes edema Psych: Appearance: grossly normal Objective Data Labs 11/06/22 07:44 11/08/22 06:50 Labs: Laboratory Results - last 24 hr 11/08/22 11/08/22 06:50 06:50 PT 30.8 H INR 2.6 H Sodium 136 Potassium 4.2 Chloride 102 Carbon Dioxide 22 Anion Gap 16 BUN 101 H Creatinine 2.68 H Estim Creat Clear Calc 22.4 Estimated GFR 23 Random Glucose 94 Calcium 8.3 L Microbiology Microbiology Results: Microbiology 11/05/22 15:01 Urine clean catch - Urine navarro top Urine Culture - Final No growth. 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 Progress Note: Quality Stroke Does the patient have a stroke diagnosis?: No
[2022-11-09] VITALS (7 sets, daily range): BP systolic 99–148; BP diastolic 55–85; PULSE 70–102; RESP 17–24; TEMP 36.5–37.2; O2SAT 87–97
[2022-11-09 06:32] LABS: INTERNATIONAL NORM RATIO 2.5 (0.9-1.1); Prothrombin Time 30.1 SEC (10.0-13.1)
[2022-11-09] MEDS: Metoprolol Succinate ER 100 MG TAB.ER.24H PO (08:01)
[2022-11-09] MEDS: amLODIPine Besylate 10 MG TABLET PO (08:01)
--- NOTE | 2022-11-09 11:05 | PM.PNCARD ---
Subjective Subjective Date of Service: 11/09/22 Principal diagnosis: CHF, atrial fibrillation Interval history: He states that he is feeling much better since time of admission. Shortness is improved. Leg swelling also improved. Review of Systems Review of Systems Yes all other systems are reviewed and are negative Constitutional: Reports as per HPI and Reports no additional constitutional complaints Eyes: Reports as per HPI and Denies no additional eye complaints Denies system reviewed and no additional complaints, except as documented and Reports as per HPI Cardiovascular: Reports as per HPI, Reports no additional cardiovascular complaints, Denies acrocyanosis, Denies cool extremities, Denies chest pain, Denies leg edema, Denies lightheadedness, Denies palpitations and Denies dyspnea Respiratory: Reports as per HPI, Denies no additional respiratory complaints and Denies dyspnea Gastrointestinal: Reports as per HPI and Denies no additional gastrointestinal complaints Genitourinary: Reports no additional male genitourinary complaints and Reports as per HPI Musculoskeletal: Reports no additional musculoskeletal complaints and Reports as per HPI Skin/Breast: Reports system reviewed and no additional complaints, except as docu Reports system reviewed and no additional complaints, except as documented and Reports as per HPI Psychiatric: Reports no additional psychiatric complaints and Reports as per HPI Endocrine: Reports no additional endocrine complaints, Reports as per HPI and Denies palpitations Hematologic/Lymphatic: Reports no additional hematologic/lymphatic complaints and Reports as per HPI Allergic/Immunologic: Reports no additional allergic/immunologic complaints and Reports as per HPI Physical Exam Vital Signs: Last Vital Signs Temp 98.4 F 11/09/22 07:34 Pulse 87 11/09/22 07:34 Resp 20 11/09/22 07:34 BP 131/62 11/09/22 07:34 Pulse Ox 92 11/09/22 07:34 O2 Del Method 11/09/22 07:34 O2 Flow Rate 3 11/09/22 07:34 BMI result Body Mass Index 31.9 Const General: comfortable and no acute distress Orientation/consciousness: patient oriented x3 HEENT Other: Unremarkable Head: Yes normal to inspection Neck Neck: Yes normal visual inspection Chest Chest palpation & inspection: normal inspection of the chest Resp Other: Slight wheezing anteriorly. Cardio Palpation: normal PMI Heart sounds: S1 normal heart sound present, S2 normal heart sound present, no gallops, no murmurs and no rubs GI Palpation (GI): Soft to palpation Back/Spine/Pelvis Other: unremarkable Skin General skin exam: no rashes or lesions noted Neuro General: patient oriented x3 Extrem Other: Mild edema. Nothing too prominent. General: Yes normal to inspection Psych Mental Status: mental status grossly normal Objective Labs and Meds 11/06/22 07:44 11/08/22 06:50 Lab results: Laboratory Results - last 24 hr 11/09/22 05:59 PT 30.1 H INR 2.5 H Progress Note: A&P Assessment and plan (1) Acute on chronic diastolic (congestive) heart failure: Status: Acute Assessment and Plan: In the recent echocardiogram, LVEF 55-60%. Advanced diastolic dysfunction with elevated filling pressures. Severely increased right ventricular size. Severely dilated atria. Moderate pulmonary hypertension with severely increased RA pressure. At the present time, he is on IV Lasix drip. So far, negative-6.7 L. BUN is 101. Creatinine is 2.68. We can probably switch these to oral medications and see how he does. (2) Persistent atrial fibrillation: Status: Acute Assessment and Plan: Continue metoprolol and warfarin. (3) HTN (hypertension): Status: Acute Assessment and Plan: Seems stable. Continue amlodipine. Plan Discussed with Dr. Churchill. Time Spent With Patient Time: Total time managing care of this patient today ____ minutes. Progress Note: Quality Stroke Does the patient have a stroke diagnosis?: No Procedures Date of Service Date of Service: 11/09/22
--- NOTE | 2022-11-09 11:13 | HO.PM.IMPN ---
Subjective Subjective Date of Service: 11/09/22 Interval History: Seen and examined, events noted Overall doing great , no sob, no hypoxia Physical Exam Vital Signs: Vital Signs: Last Vital Signs Temp 98.4 F 11/09/22 07:34 Pulse 87 11/09/22 07:34 Resp 20 11/09/22 07:34 BP 131/62 11/09/22 07:34 Pulse Ox 92 11/09/22 07:34 O2 Del Method 11/09/22 07:34 O2 Flow Rate 3 11/09/22 07:34 BMI result Body Mass Index 31.9 Const: Other: General: AO X 3, no acute distress Resp: CTA bilateral CVS: S1,S2,RRR, gissell leg edema trace to 1+ GI: +BS, NT, no distention Skin: No rash Neuro: motor grossly intact Psych: appropriate affect Objective Data Active Medications Acetaminophen (Acetaminophen 325 Mg Tablet) 650 mg PO Q6H PRN PRN Reason: Pain, Mild (Pain Scale 1-3) Last Admin: 11/07/22 21:12 Dose: 650 mg Documented By: BEAR Amlodipine Besylate (Amlodipine Besylate 10 Mg Tablet) 10 mg PO DAILY [facility] [place]; Protocol Last Admin: 11/09/22 08:01 Dose: 10 mg Documented By: JALIL Albuterol Sulfate 2.5 mg/ (Ipratropium [place] 0.5 mg) 0 mg INHALE Q4H PRN PRN Reason: Wheezing Last Admin: 11/09/22 03:31 Dose: 2.5 each Documented By: NAUMTAYLER Docusate Sodium (Docusate Sodium 100 Mg Capsule) 100 mg PO DAILY PRN PRN Reason: Constipation Metoprolol Succinate (Metoprolol Succinate Er 100 Mg Tab.Er.24h) 100 mg PO DAILY [facility]; Protocol Last Admin: 11/09/22 08:01 Dose: 100 mg Documented By: JALIL Ondansetron HCl (Ondansetron Hcl 4 Mg/2 Ml Vial) 4 mg IVPUSH Q8H PRN PRN Reason: Nausea and Vomiting Pharmacy Consult (Consult Rx Perform Med Rec) 1 each MISCELLANE ONCE PRN PRN Reason: Consult order Sodium Chloride (0.9 % Sodium Chloride Flush 3 Ml Syringe) [facility] Last Admin: 11/09/22 08:01 Dose: Not Given Documented By: JALIL Non-Admin Reason: IV Running Warfarin Sodium (Warfarin Sodium 5 Mg Tablet) 5 mg PO SuSa@1800 [facility] [place] Last Admin: 11/07/22 17:33 Dose: 5 mg Documented By: SUSIE Warfarin Sodium (Warfarin Sodium 10 Mg Tablet) 10 mg PO MoTuWeThFr@1800 [facility]PE Last Admin: 11/06/22 17:17 Dose: 10 mg Documented By: JENNIFER Labs 11/06/22 07:44 11/08/22 06:50 Labs: Laboratory Results - last 24 hr 11/09/22 05:59 PT 30.1 H INR 2.5 H Assessment and Plan (1) CHF exacerbation: Status: Acute (2) JAMIE (acute kidney injury): Status: Acute (3) Hyperkalemia: Status: Acute Plan 87-year-old male with a PMH significant for?HTN, CHF with preserved EF, persistent AFib, and BPH who presents to the ED with?worsening SOB for the past few days. Pt will be admitted to the hospital for treatment and further evaluation of acute SOB without hypoxia. acute on chronic congestive heart failure with preserved EF, marked improvement, he feel great_ Was treated with IV Lasix drip until 11/09, change to Oral lasix 40 bid, 3/ EF 55-60 hasd a VQ scan to r/o PE (negative) Hyperkalemia 6, resolved. last K 4.2 JAMIE on CKD2--? cardiorenal , Creatinine is better today, monitor Cr while on diuretics, if worse renal consult Persistent AFib--metoprolol for rate control, ,OAC with coumadin, monitor INR 2.5, continue coumadin HTN--Continue amlodipine DNR/DNI DVT Prophylaxis: warfarin Need for inpatient: acute heart failure needing IV diuretics,and JAMIE PT eval Time Spent With Patient Time: Total time managing care of this patient today ____ minutes. Quality Stroke Does the patient have a stroke diagnosis?: No VTE Prior VTE?: No VTE Risk Level:: Medical - moderate - high VTE Device Contraindication: Treatment Not Indicated VTE Drug Contraindication: N/A - Med Ordered
[2022-11-09 12:32] LABS: Anion Gap 15 (12-20); Blood Urea Nitrogen 97 mg/dL (9-16); Calcium 8.4 mg/dL (8.4-10.2); Chloride 99 mmol/L (96-108); Creatinine Clr Calc Pharmacy 25.3; Estimated Glomerular Filt Rate 26; Glucose Random 112 mg/dL (60-115); Potassium 3.7 mmol/L (3.3-5.1); Sodium 141 mmol/L (135-145)
[2022-11-09 12:43] LABS: Carbon Dioxide 30 mmol/L (22-29)
--- NOTE | 2022-11-09 15:51 | MHC.CM.PN ---
Male 87 DX SOB Patient continues on a Lasix drip. No discharge planned today. DP home with or with out services. Family will provide transportation home.
[2022-11-09] MEDS: 0.9 % Sodium Chloride Flush 3 ML SYRINGE IVFLUSH ×2 (17:16→21:49)
[2022-11-09] MEDS: Furosemide 40 MG TABLET PO (17:16)
[2022-11-09] MEDS: Warfarin Sodium 10 MG TABLET PO (17:16)
[2022-11-09] MEDS: Acetaminophen 325 MG TABLET 650 MG PO (21:46)
[2022-11-10] VITALS (7 sets, daily range): BP systolic 95–146; BP diastolic 56–73; PULSE 59–94; RESP 18–20; TEMP 36.3–36.9; O2SAT 88–97
[2022-11-10 06:36] LABS: INTERNATIONAL NORM RATIO 2.3 (0.9-1.1); Prothrombin Time 27.8 SEC (10.0-13.1)
[2022-11-10 07:09] LABS: Anion Gap 13 (12-20); Blood Urea Nitrogen 92 mg/dL (9-16); Calcium 8.5 mg/dL (8.4-10.2); Carbon Dioxide 35 mmol/L (22-29); Chloride 97 mmol/L (96-108); Creatinine Clr Calc Pharmacy 29.3; Estimated Glomerular Filt Rate 31; Glucose Random 118 mg/dL (60-115); Potassium 3.1 mmol/L (3.3-5.1); Sodium 142 mmol/L (135-145)
[2022-11-10] MEDS: Metoprolol Succinate ER 100 MG TAB.ER.24H PO (08:57)
[2022-11-10] MEDS: amLODIPine Besylate 10 MG TABLET PO (08:57)
[2022-11-10] MEDS: 0.9 % Sodium Chloride Flush 3 ML SYRINGE IVFLUSH ×2 (08:58→17:23)
[2022-11-10] MEDS: Furosemide 40 MG TABLET PO ×2 (08:58→17:22)
--- NOTE | 2022-11-10 10:22 | PM.PNCARD ---
Subjective Subjective Date of Service: 11/10/22 Principal diagnosis: CHF, atrial fibrillation Interval history: He states that he is feeling much better since the time of admission. Shortness of breath is significantly improved. Leg swelling is also better. Beginning to ambulate. Review of Systems Review of Systems Yes all other systems are reviewed and are negative Constitutional: Reports as per HPI and Reports no additional constitutional complaints Eyes: Reports as per HPI and Denies no additional eye complaints Denies system reviewed and no additional complaints, except as documented and Reports as per HPI Cardiovascular: Reports as per HPI, Reports no additional cardiovascular complaints, Denies acrocyanosis, Denies cool extremities, Denies chest pain, Denies leg edema, Denies lightheadedness, Denies palpitations and Denies dyspnea Respiratory: Reports as per HPI, Denies no additional respiratory complaints and Denies dyspnea Gastrointestinal: Reports as per HPI and Denies no additional gastrointestinal complaints Genitourinary: Reports no additional male genitourinary complaints and Reports as per HPI Musculoskeletal: Reports no additional musculoskeletal complaints and Reports as per HPI Skin/Breast: Reports system reviewed and no additional complaints, except as docu Reports system reviewed and no additional complaints, except as documented and Reports as per HPI Psychiatric: Reports no additional psychiatric complaints and Reports as per HPI Endocrine: Reports no additional endocrine complaints, Reports as per HPI and Denies palpitations Hematologic/Lymphatic: Reports no additional hematologic/lymphatic complaints and Reports as per HPI Allergic/Immunologic: Reports no additional allergic/immunologic complaints and Reports as per HPI Physical Exam Vital Signs: Last Vital Signs Temp 97.9 F 11/10/22 07:18 Pulse 73 11/10/22 07:18 Resp 20 11/10/22 07:18 BP 123/57 L 11/10/22 07:18 Pulse Ox 95 11/10/22 07:18 O2 Del Method 11/10/22 07:18 O2 Flow Rate 4 11/10/22 07:18 BMI result Body Mass Index 31.9 Const General: comfortable and no acute distress Orientation/consciousness: patient oriented x3 HEENT Other: Unremarkable Head: Yes normal to inspection Neck Neck: Yes normal visual inspection Chest Chest palpation & inspection: normal inspection of the chest Resp Other: Scattered wheezing. Cardio Palpation: normal PMI Heart sounds: S1 normal heart sound present, S2 normal heart sound present, no gallops, no murmurs and no rubs GI Palpation (GI): Soft to palpation Back/Spine/Pelvis Other: unremarkable Skin General skin exam: no rashes or lesions noted Neuro General: patient oriented x3 Extrem Other: 1+ edema. General: Yes normal to inspection Psych Mental Status: mental status grossly normal Objective Labs and Meds 11/06/22 07:44 11/10/22 06:01 Lab results: Laboratory Results - last 24 hr 11/09/22 11/10/22 11/10/22 11:28 06:01 06:01 PT 27.8 H INR 2.3 H Sodium 141 142 Potassium 3.7 3.1 L Chloride 99 97 Carbon Dioxide 30 H 35 H Anion Gap 15 13 BUN 97 H 92 H Creatinine 2.37 H 2.05 H Estim Creat Clear Calc 25.3 29.3 Estimated GFR 26 31 Random Glucose 112 118 H Calcium 8.4 8.5 Progress Note: A&P Assessment and plan (1) Acute on chronic diastolic (congestive) heart failure: Status: Acute Assessment and Plan: In the recent echocardiogram, LVEF 55-60%. Advanced diastolic dysfunction with elevated filling pressures. Severely increased right ventricular size. Severely dilated atria. Moderate pulmonary hypertension with severely increased RA pressure. So far,-9.6 L. IV diuretics have been switch to oral diuretics. Creatinine is 2. Higher than before but seems to be improving. Baseline around 1. BUN is 92. Previously, much lower. Overall, seems to be making progress in the right direction. (2) Persistent atrial fibrillation: Status: Acute Assessment and Plan: Continue metoprolol and warfarin. (3) HTN (hypertension): Status: Acute Assessment and Plan: On amlodipine. Plan Need to ambulate and see how he does clinically. Discussed with Dr. English. Discussed with RN. Time Spent With Patient Time: Total time managing care of this patient today 48 minutes. Progress Note: Quality Stroke Does the patient have a stroke diagnosis?: No Procedures Date of Service Date of Service: 11/10/22
--- NOTE | 2022-11-10 15:45 | P.PNNP_ITS ---
Subjective Subjective Date of Service: 11/10/22 Principal diagnosis: CHF, atrial fibrillation Interval history: Seen and examined, events noted Physical Exam Vital Signs: Vital Signs: Last Vital Signs Temp 97.8 F 11/10/22 15:41 Pulse 92 11/10/22 15:41 Resp 18 11/10/22 15:41 BP 123/69 11/10/22 15:41 Pulse Ox 95 11/10/22 15:41 O2 Del Method 11/10/22 15:41 O2 Flow Rate 2 11/10/22 15:41 BMI result Body Mass Index 31.9 Const: Other: General: AO X 3, no acute distress Resp: CTA bilateral CVS: S1,S2,RRR, gissell leg edema GI: +BS, NT, no distention Skin: No rash Neuro: motor grossly intact Psych: appropriate affect General: cooperative, comfortable, alert, awake and in distress mild and respiratory Nutritional Appearance: obese and overweight Orientati on/consciousness: patient oriented x3 HEENT: Head: Yes normal to inspection and Yes normocephalic Neck: Neck: Yes trachea midline, Yes supple and Yes JVD Resp: Effort & Inspection: normal respiratory effort and decreased respiratory effort Auscultation: crackles bilateral at the base and diminished lung sounds Cardio: Jugular venous distension: JVD Rate: regular rate Rhythm: abnormal rhythm irregularly irregular Heart sounds: S1 normal heart sound present, S2 normal heart sound present, no click, no gallops and no murmurs GI: Inspection: Yes distended Auscultation: normal bowel sounds Skin: General skin exam: no rashes or lesions noted Neuro: General: patient oriented x3 and no focal motor deficits Extrem: General: No clubbing, No cyanosis and Yes edema Psych: Appearance: grossly normal Objective Data Labs 11/06/22 07:44 11/10/22 06:01 Labs: Laboratory Results - last 24 hr 11/10/22 11/10/22 06:01 06:01 PT 27.8 H INR 2.3 H Sodium 142 Potassium 3.1 L Chloride 97 Carbon Dioxide 35 H Anion Gap 13 BUN 92 H Creatinine 2.05 H Estim Creat Clear Calc 29.3 Estimated GFR 31 Random Glucose 118 H Calcium 8.5 Microbiology Microbiology Results: Microbiology 11/05/22 15:01 Urine clean catch - Urine navarro top Urine Culture - Final No growth. Procedures Date of Service Date of Service: 11/10/22 Assessment & Plan Assessment and plan (1) CHF exacerbation: Status: Acute (2) Persistent atrial fibrillation: Status: Acute Plan - JAMIE: still most c/w CRSyn and decr SCr with diuresis c/w decongestion - SOB: improved w diuresis -hypoK: d/t loop REC: repalce K; track UOP/renal func; cont diuresis; consider adding aldactone will follow with team Time Spent With Patient Time: Total time managing care of this patient today ____ minutes. Progress Note: Quality Stroke Does the patient have a stroke diagnosis?: No
--- NOTE | 2022-11-10 16:25 | P.PNIM_ITS ---
Subjective Subjective Date of Service: 11/11/22 Interval History: chf Review of Systems sob seems improving ,still feels sob with exceresion denies any cough or fevers 9.6 liter neg Physical Exam Vital Signs: Vital Signs: Last Vital Signs Temp 97.8 F 11/10/22 15:41 Pulse 92 11/10/22 15:41 Resp 18 11/10/22 15:41 BP 123/69 11/10/22 15:41 Pulse Ox 95 11/10/22 15:41 O2 Del Method 11/10/22 15:41 O2 Flow Rate 2 11/10/22 15:41 BMI result Body Mass Index 31.9 General: AO X 3, no acute distress Resp:? CTA bilateral CVS: S1,S2,RRR, gissell leg edema trace to 1+ GI: +BS, NT, no distention Skin: No rash Neuro:? motor grossly intact Psych: appropriate affect Objective Data Active Medications Acetaminophen (Acetaminophen 325 Mg Tablet) 650 mg PO Q6H PRN PRN Reason: Pain, Mild (Pain Scale 1-3) Last Admin: 11/09/22 21:46 Dose: 650 mg Documented By: WESLEY Amlodipine Besylate (Amlodipine Besylate 10 Mg Tablet) 10 mg PO DAILY [facility]; Protocol Last Admin: 11/10/22 08:57 Dose: 10 mg Documented By: MICHELL Albuterol Sulfate 2.5 mg/ (Ipratropium Brewster 0.5 mg) 0 mg INHALE Q4H PRN PRN Reason: Wheezing Last Admin: 11/09/22 03:31 Dose: 2.5 each Documented By: SANDOVAL Docusate Sodium (Docusate Sodium 100 Mg Capsule) 100 mg PO DAILY PRN PRN Reason: Constipation Furosemide (Furosemide 40 Mg Tablet) 40 mg PO BID@0900,1800 [facility]; Protocol Last Admin: 11/10/22 08:58 Dose: 40 mg Documented By: MICHELL Metoprolol Succinate (Metoprolol Succinate Er 100 Mg Tab.Er.24h) 100 mg PO DAILY [facility]; Protocol Last Admin: 11/10/22 08:57 Dose: 100 mg Documented By: MICHELL Nystatin (Nystatin Powder 15 Gm Bottle) 1 appl TOPICAL BID [facility]; Protocol Ondansetron HCl (Ondansetron Hcl 4 Mg/2 Ml Vial) 4 mg IVPUSH Q8H PRN PRN Reason: Nausea and Vomiting Pharmacy Consult (Consult Rx Perform Med Rec) 1 each MISCELLANE ONCE PRN PRN Reason: Consult order Sodium Chloride (0.9 % Sodium Chloride Flush 3 Ml Syringe) 3 ml IVFLUSH QSHIFT [facility] Last Admin: 11/10/22 08:58 Dose: 3 ml Documented By: MICHELL Warfarin Sodium (Warfarin Sodium 5 Mg Tablet) 5 mg PO SuSa@1800 [facility] Last Admin: 11/07/22 17:33 Dose: 5 mg Documented By: SUSIE Warfarin Sodium (Warfarin Sodium 10 Mg Tablet) 10 mg PO MoTuWeThFr@1800 [facility] Last Admin: 11/09/22 17:16 Dose: 10 mg Documented By: [facility]OR[facility]RA[facility] 11/06/22 07:44 11/10/22 06:01 Labs: Laboratory Results - last 24 hr 11/10/22 11/10/22 06:01 06:01 PT 27.8 H INR 2.3 H Anion Gap 13 Estim Creat Clear Calc 29.3 Estimated GFR 31 Random Glucose 118 H Calcium 8.5 Assessment and Plan (1) CHF exacerbation: Status: Acute (2) JAMIE (acute kidney injury): Status: Acute (3) Hyperkalemia: Status: Acute Plan 87-year-old male with a PMH significant for?HTN, CHF with preserved EF, persistent AFib, and BPH who presents to the ED with?worsening SOB for the past few days. Pt will be admitted to the hospital for treatment and further evaluation of acute SOB without hypoxia. acute on chronic congestive heart failure with preserved EF, marked improvemen t, feeling slightly better ,mild sob with exceresion Was treated with IV Lasix drip until 11/09, change to Oral lasix 40 bid, i/o 9 liter neg 11/06 EF 55-60 hasd a VQ scan to r/o PE (negative) Hyperkalemia 6, resolved. last K 4.2 JAMIE on CKD2--? cardiorenal , Creatinine is better today, monitor Cr while on diuretics, if worse renal consult Persistent AFib--metoprolol for rate control, ,OAC with coumadin, monitor INR 2.5, continue coumadin HTN--Continue amlodipine DNR/DNI DVT Prophylaxis: warfarin Need for inpatient: acute heart failure needing IV diuretics,and JAMIE PT eval -may go back to rehab inaptatient need-chf -needs diuresis ,moniter repiratory status -not optimal yet . Time Spent With Patient Time: Total time managing care of this patient today ____ minutes. Quality Stroke Does the patient have a stroke diagnosis?: No VTE Prior VTE?: No VTE Risk Level:: Medical - moderate - high VTE Device Contraindication: Treatment Not Indicated VTE Drug Contraindication: N/A - Med Ordered
[2022-11-10] MEDS: Warfarin Sodium 10 MG TABLET PO (17:22)
[2022-11-10] MEDS: Nystatin Powder 15 GM BOTTLE 1 APPL TOPICAL (17:22)
[2022-11-10] MEDS: Potassium Chloride Packet 20 MEQ PACKET 40 MEQ PO (17:22)
[2022-11-10] MEDS: Acetaminophen 325 MG TABLET 650 MG PO (20:59)
[2022-11-11] MEDS: 0.9 % Sodium Chloride Flush 3 ML SYRINGE IVFLUSH ×2 (00:30→09:17)
[2022-11-11 04:00] VITALS: BP 105/74; PULSE 68; RESP 20; TEMP 36.9; O2SAT 94
[2022-11-11 06:25] LABS: INTERNATIONAL NORM RATIO 2.8 (0.9-1.1); Prothrombin Time 33.8 SEC (10.0-13.1)
[2022-11-11 06:38] VITALS: BMI 30.2
[2022-11-11 07:37] VITALS: BP 115/78; PULSE 70; RESP 20; TEMP 36.9; O2SAT 95
[2022-11-11 08:44] LABS: Anion Gap 14 (12-20); Blood Urea Nitrogen 80 mg/dL (9-16); Calcium 8.6 mg/dL (8.4-10.2); Carbon Dioxide 38 mmol/L (22-29); Chloride 97 mmol/L (96-108); Creatinine Clr Calc Pharmacy 33.6; Estimated Glomerular Filt Rate 37; Glucose Random 86 mg/dL (60-115); Potassium 3.6 mmol/L (3.3-5.1); Sodium 145 mmol/L (135-145)
[2022-11-11] MEDS: Metoprolol Succinate ER 100 MG TAB.ER.24H PO (09:16)
[2022-11-11] MEDS: Nystatin Powder 15 GM BOTTLE 1 APPL TOPICAL (09:17)
[2022-11-11 11:33] VITALS: BP 120/86; PULSE 75; RESP 20; TEMP 36.9; O2SAT 97
--- NOTE | 2022-11-11 11:36 | PM.DS ---
DS: Providers Provider Date of Service: 11/11/22 Date of admission: 11/05/22 14:51 Date of discharge: 11/11/22 Primary care physician: Marcos Maurer MD Consults: 11/05/22 14:54 Consult to Cardiology Routine Consulting Provider: [facility] Reason for consultation: ?CHF Has provider been notified: Yes 11/06/22 07:34 Consult to Nephrology Routine Consulting Provider: Prabhjot Betancourt Reason for consultation: jamie ckd Has provider been notified: No Attending physician on discharge: Jacque English DS: Diagnosis Discharge Diagnosis (1) CHF exacerbation: Status: Acute (2) JAMIE (acute kidney injury): Status: Acute (3) Hyperkalemia: Status: Acute (4) Persistent atrial fibrillation: Status: Acute (5) Acute on chronic diastolic (congestive) heart failure: Status: Acute (6) HTN (hypertension): Status: Acute (7) Subtherapeutic international normalized ratio (INR): Status: Acute (8) Cardiorenal syndrome: Status: Acute DS: Summary Hospital Course Hospital Course: 87-year-old male with a PMH significant for?HTN, CHF with preserved EF, persistent AFib, and BPH who presents to the ED with?worsening SOB for the past few days. Pt has had chronic SOB for many years, but states he has had increased SOB d/t phlegm being caught in his throat that he could not cough up. He claims this resolved earlier today, only to be replaced by his AFib kicking in this morning. Pt says he is not usually in AFib, but knew he was in it today because of difficulty breathing. Notes some increased lower leg edema, but denies abdominal swelling. Denies chest pain/pressure, palpitations. No fever, chills, nausea, vomiting, abdominal pain. Pt notes he sometimes forgets to take his furosemide, but is compliant with all his other medications. In the ED patient was afebrile and tachypneic up to 33. Labs were significant for WBC WNL, H&H 11.3/36.2 (at baseline), INR subtherapeutic at 1.3, potassium of 6.0 with repeat 5.4, creatinine of 2.41 with repeat 2.38, BNP 1597, troponin 60.2 with repeat of 30.9. CXR showed no acute cardiopulmonary process. EKG demonstrated AFib without evidence of ST depressions or elevations. Pt was treated with furosemide, Mag sulfate, calcium gluconate, dextrose, and insulin. Pt will be admitted to the hospital for treatment and further evaluation of acute SOB without hypoxia. Hospital course: Patient was admitted for chf acute on ch diastolic heart failure -seen by Cardiology and started on IV diuretics, diuresed well around 10-11 L seems to be improving significantly. Will be going to rehab with p.o. Lasix. Patient probably has component of cardiorenal syndrome: Renal function is improving with diuresis, monitor renal function and electrolyte closely. CHF education was given, patient was strongly advise follow-up with PCP if weight gain 2 lb or more/week. The hyperkalemia probably related to initial worsening of renal function-is seems to be resolved. Subsequently patient had hypokalemia which was repleted and resolved, nephrology added Aldactone in addition to Lasix. Monitor renal function and electrolytes closely . Patient had elevated BUN creatinine in the setting of heart failure seen by nephrology was thought to be possible jamie due to cardio renal: Monitor renal function and electrolytes outpatient. Patient also has Curiel please give voiding trial in next 24 hour in rehab. Hypertension: Blood pressure is optimal without amlodipine, continue metoprolol. Patient also started on Lasix as above. Patient has chronic AFib: Heart rate controlled, inr therapeutic, continue metoprolol and Coumadin monitor INR. Plan: continue Lasix,CHF education was given, patient was strongly advise follow-up with PCP if weight gain 2 lb or more/week. hyperkalemia probably related to initial worsening of renal function-is seems to be resolved.Monitor renal function and electrolytes closely . Hypertension: Blood pressure is optimal without amlodipine, continue metoprolol. If blood pressure persistently elevated consider adding amlodipine slowly. moniter inr. Patient is to follow-up with Cardiology and Nephrology outpatient. Time Spent with Patient Time attestation: Total time managing care of this patient today ____ minutes. Discharge coordination time: Greater than 30 minutes Quality: Safe Use of Opioids Does Pt have an Active Cancer Diagnosis on the Problem List?: No Quality: Stroke Does the patient have a stroke diagnosis?: No Physical Exam Vital Signs: Vital Signs: Last Vital Signs Temp 98.4 F 11/11/22 11:33 Pulse 75 11/11/22 11:33 Resp 20 03/08/23 11:33 BP 120/86 11/11/22 11:33 Pulse Ox 97 11/11/22 11:33 O2 Del Method 11/11/22 11:33 O2 Flow Rate 2 11/11/22 11:33 BMI result Body Mass Index 30.2 ?General: AO X 3, no acute distress Resp:? CTA bilateral CVS: S1,S2,RRR, no edema GI: +BS, NT, no distention Skin: No rash Neuro:? motor grossly intact Psych: appropriate affect DS: Data Data Completed and Pending Labs on day of discharge: Laboratory Results - last 24 hr 11/11/22 11/11/22 06:05 07:35 PT 33.8 H INR 2.8 H Sodium 145 Potassium 3.6 Chloride 97 Carbon Dioxide 38 H Anion Gap 14 BUN 80 H Creatinine 1.74 H Estim Creat Clear Calc 33.6 Estimated GFR 37 Random Glucose 86 Calcium 8.6 Imaging Chest x-ray: Radiologist's impression: ITS Impressions Chest X-Ray 11/05/22 10:30 IMPRESSION: No acute cardiopulmonary process. Pulmonary Perfusion Imaging 11/06/22 16:30 IMPRESSION: Very low probability of pulmonary embolism. Renal Ultrasound 11/07/22 14:58 IMPRESSION: 1. There are 3 cysts in the right kidney. 2. There is mild caliectasis right kidney. 3. There is mild cortical thinning left kidney. 4. There are no echogenic stones or hydronephrosis in either kidney. echo: Conclusions: - 1. Normal LV systolic function with moderate LVH with? restrictive filling pattern? 2. Severely dilated right ventricle with reduced systolic? function ? 3. Severe biatrial enlargement ? 4. Mild aortic regurgitation ? 5. Moderately elevated right ventricular systolic pressure and ? significant with right atrial pressures? Discharge Plan Discharge Anticipated Discharge Date/Time: 11/11/22 11:21 Patient Disposition: [facility] Discharge Diagnosis: CHF, hyperkalemia, JAMIE Referrals: Marcos Maurer MD [Primary Care Provider] - 1 Week Prabhjot Betancourt MD [Physician] - 1 Week (follow up outpatient) Discharge Medications: New nystatin 100,000 unit/gram Powder 1 appl topical BID Qty: 1 0RF Protocol: Apply to: Apply to: affected area Continued betamethasone dipropionate 0.05 % lotion 1 appl topical BID PRN (Reason: Rash) warfarin [Jantoven] 5 mg tablet 5 mg PO SUSA warfarin [Jantoven] 5 mg tablet 10 mg PO MOTUWETHFR metoprolol succinate 100 mg tablet extended release 24 hr 100 mg PO DAILY Changed furosemide 40 mg tablet 1 tab PO DAILY Qty: 30 0RF Held amlodipine 10 mg tablet 1 tab PO DAILY Hold Instructions: Resume on 11/24/22. Discharge Orders: Discharge Order (Routine); Ordered 11/11/22 Ordered By: Jacque English Diet: Low fat, low cholesterol Activity on Discharge: As tolerated Stand Alone Forms: Patient Portal Discharge page Care Plan Goals: Patient was admitted for heart failure-seen by Cardiology and started on IV diuretics, diuresed well around 10-11 L seems to be improving significantly. Will be going to rehab with p.o. Lasix. Patient probably has component of cardiorenal syndrome: Renal function is improving with diuresis, monitor renal function and electrolyte closely. CHF education was given, patient was strongly advise follow-up with PCP if weight gain 2 lb or more/week. The hyperkalemia probably related to initial worsening of renal function-is seems to be resolved. Subsequently patient had hypokalemia which was repleted and resolved, nephrology added Aldactone in addition to Lasix. Monitor renal function and electrolytes closely . Patient had elevated BUN creatinine in the setting of heart failure seen by nephrology was thought to be possible jamie due to cardio renal: Monitor renal function and electrolytes outpatient. Patient also has Curiel please give voiding trial in next 24 hour in rehab. Hypertension: Blood pressure is optimal without amlodipine, continue metoprolol. Patient also started on Lasix as above. Patient has chronic AFib: Heart rate controlled, inr therapeutic, continue metoprolol and Coumadin monitor INR. Health Concerns: As above. Plan of Treatment: As above. Assessment: As above. Patient Instructions: Heart Failure (DC), Acute Kidney Injury (DC)
[2022-11-11 11:49] LABS: COVID-19 Test Negative (Negative); IDNOW Serial# BCCEAD1C
--- NOTE | 2022-11-11 12:14 | MHC.CM.PN ---
IMM 11/11/22 Patient is discharged to [facility] for STR today. All discharge information and negative covid test result have been sent to the facility. Patient will transport via S 2pm berry picker @ [facility] [place].
[2022-11-11] MEDS: Potassium Chloride Packet 20 MEQ PACKET PO (12:47)
[2022-11-11 13:00] VITALS: PULSE 74; O2SAT 88
[2022-11-11] MEDS: Acetaminophen 325 MG TABLET 650 MG PO (14:19)
== END 2022-11-11 14:30 | disposition skilled nursing facility (03) | DRG 291 ==
LOC: HO.ED 13:40 → HO.EDOVER 14:59 → HO.IMC 17:50
PROVIDERS: Internal Medicine; Internal Medicine Nephrology; Admitting Provider Student in an Organized Health Care Education/Training Program; Emergency Provider Student in an Organized Health Care Education/Training Program; PCP Internal Medicine; Visit Provider Internal Medicine
DX: I13.0 Hypertensive heart and chronic kidney disease with heart failure and stage 1 through stage 4 chronic kidney disease, or unspecified chronic kidney disease (principal); I50.33 Acute on chronic diastolic (congestive) heart failure; I48.19 Other persistent atrial fibrillation; N17.9 Acute kidney failure, unspecified; Z66 Do not resuscitate; N18.2 Chronic kidney disease, stage 2 (mild); E87.5 Hyperkalemia; R79.1 Abnormal coagulation profile; N40.0 Benign prostatic hyperplasia without lower urinary tract symptoms; Z20.822 Contact with and (suspected) exposure to COVID-19; Z79.01 Long term (current) use of anticoagulants; Z79.899 Other long term (current) drug therapy
CPT/HCPCS: 36415; 71045; 76775; 78580; 80048; 80053; 80307; 81001; 82043; 82077; 83735; 83880; 84156; 84300; 84484; 85025; 85027; 85610; 85730; 87086; 87635; 93005; 93306; 94640; 97116; 97162; 99284; A9540; C1758; J0611; J1940; J2270; J3475; Q9957

== ENCOUNTER 2022-12-11 11:42 | Outpatient (REF) | payer MEDICARE, SELFPAY ==
[2022-12-11 13:27] LABS: Anion Gap 15 (12-20); Blood Urea Nitrogen 21 mg/dL (9-16); Calcium 9.3 mg/dL (8.4-10.2); Carbon Dioxide 25 mmol/L (22-29); Chloride 106 mmol/L (96-108); Estimated Glomerular Filt Rate > 60; Glucose Random 100 mg/dL (60-115); Potassium 5.2 mmol/L (3.3-5.1); Sodium 141 mmol/L (135-145)
[2022-12-11 13:32] LABS: Prothrombin Time 83.6 SEC (10.0-13.1)
[2022-12-11 13:43] LABS: INTERNATIONAL NORM RATIO 6.7 (0.9-1.1)
== END 2022-12-11 11:43 | disposition home or self-care (01) ==
LOC: HO.10HDL 11:42
PROVIDERS: Visit Provider Internal Medicine
DX: I48.91 Unspecified atrial fibrillation (principal); I50.9 Heart failure, unspecified; N18.9 Chronic kidney disease, unspecified
CPT/HCPCS: 36415; 80048; 85610

== ENCOUNTER 2022-12-15 12:32 | Outpatient (REF) | payer MEDICARE, SELFPAY ==
[2022-12-15 13:48] LABS: INTERNATIONAL NORM RATIO 2.5 (0.9-1.1); Prothrombin Time 30.4 SEC (10.0-13.1)
== END 2022-12-15 12:33 | disposition home or self-care (01) ==
LOC: HO.10HDL 12:32
PROVIDERS: Visit Provider Internal Medicine
DX: I48.91 Unspecified atrial fibrillation (principal)
CPT/HCPCS: 36415; 85610

== ENCOUNTER 2022-12-23 12:20 | Outpatient (REF) | payer MEDICARE, SELFPAY ==
[2022-12-23 14:04] LABS: INTERNATIONAL NORM RATIO 1.2 (0.9-1.1); Prothrombin Time 13.4 SEC (10.0-13.1)
== END 2022-12-23 12:21 | disposition home or self-care (01) ==
LOC: HO.10HDLR 12:20
PROVIDERS: Visit Provider Internal Medicine
DX: I48.91 Unspecified atrial fibrillation (principal)
CPT/HCPCS: 36415; 85610

== ENCOUNTER 2023-01-02 15:10 | Inpatient (IN) | payer MEDICARE, SELFPAY ==
--- NOTE | ~2023-01-02 | XR_ITS ---
EXAMINATION: XR CHEST CLINICAL INFORMATION: Shortness of breath COMPARISON: 01/04/2023 TECHNIQUE: Frontal view of the chest was obtained. FINDINGS: There is a small to moderate right pleural effusion, similar to slightly increased from prior, with adjacent basilar airspace opacity. Left lung appears well-expanded and well-aerated. No evidence of pneumothorax. Cardiac silhouette remains enlarged. No acute osseous findings are seen. XR/XR chest 1V IMPRESSION: Small to moderate right pleural effusion, similar to slightly increased from prior, with adjacent basilar airspace opacity which may represent atelectasis or consolidation. Imaging follow-up recommended to assess for resolution.
--- NOTE | ~2023-01-02 | XR_ITS ---
EXAMINATION: XR chest 1V CLINICAL INFORMATION: Shortness of breath COMPARISON: Prior chest x-ray 11/05/2022 TECHNIQUE: XR chest 1V Tubes and lines: None Lungs and pleura: Opacification at right lung base suggest pleural effusion, possible underlying infiltrate and/or atelectasis unchanged from prior exam. Heart and mediastinum: The mediastinum is within normal limits.. Bones/soft tissue: Skeletal structures included are normal for patient's age. XR/XR chest 1V IMPRESSION: * Opacification at right lung base suggest pleural effusion, possible underlying infiltrate and/or atelectasis unchanged. * No pneumothorax.
--- NOTE | ~2023-01-02 | XR_ITS ---
EXAMINATION: XR CHEST CLINICAL INFORMATION: Shortness of breath COMPARISON: Previous chest x-ray 01/02/2023 TECHNIQUE: 2 views of the chest were obtained. FINDINGS: The cardiac silhouette is enlarged. There is new increased pulmonary venous redistribution and perihilar attenuation. There is elevation of the right hemidiaphragm and increasing atelectasis or focal airspace disease at the right lung base. There are bilateral pleural effusions, right greater than left. There are degenerative changes of the spine. XR/XR chest 2V IMPRESSION: New CHF. Probable atelectasis or consolidation at the right lung base.
[2023-01-02 15:19] VITALS: BP 126/66; O2SAT 96
[2023-01-02 15:24] VITALS: BP 106/85; PULSE 74; RESP 18; O2SAT 97; BMI 26.6
--- NOTE | 2023-01-02 15:35 | ECG_ITS ---
Test Reason : CHEST PAIN Blood Pressure : / mmHG Vent. Rate : 072 BPM Atrial Rate : 000 BPM P-R Int : 000 ms QRS Dur : 158 ms QT Int : 484 ms P-R-T Axes : 000 -84 -14 degrees QTc Int : 529 ms Atrial fibrillation Left axis deviation Right bundle branch block Inferior infarct , age undetermined Abnormal ECG When compared with ECG of 05-NOV-2022 10:13, Criteria for Anteroseptal infarct are no longer Present Inferior infarct is now Present Referred By: Eddie Ridley Electronically Signed By:Raj Mendez
--- NOTE | 2023-01-02 16:01 | PC.NURSE ---
Hoda PCT & Will PCT at bedside obtaining EKG & labs. evaluated the patient. The patient is very irritable/agitated, grumpy . Per visiting nurse, he's grumpy like this all the time . Pt asking to go home, verbally combative stating I speak Cypriot you know! while this RN & other staff were speaking Cypriot. Was also irritated about this RN taking his blood pressure & vitals during triage. Pt stated this is the 3rd or 4th time that someone has done this! This is ridiculous and huffing under his breath. Also states just so you know, I'm breathing fine now. I don't want to be here . Call kelly within reach. No acute distress. Will continue to monitor. Labs pending.
[2023-01-02 16:21] LABS: MANUAL DIFF FLAG NO
[2023-01-02 16:26] LABS: Basophils Percent Auto 0.4 % (0-2); Eosinophils Absolute Auto 0.2 X10*3/uL (0.0-0.4); Eosinophils Percent Auto 2.2 % (0-4); Imm Gran Abs Auto 0.03 X10*3/uL (0.00-0.03); Imm Gran Pct Auto 0.4 % (0.0-0.4); Lymphocytes Absolute Auto 0.6 X10*3/uL (1.2-4.9); Lymphocytes Percent Auto 8.1 % (20-40); Mean Corpuscular HGB Conc 31.4 g/dl (31.0-36.0); Mean Corpuscular Hemoglobin 29.6 pg (27.0-33.0); Mean Corpuscular Volume 94.3 fL (80.0-98.0); Mean Platelet Volume 9.9 fL (9.4-12.4); Monocytes Absolute Auto 0.8 X10*3/uL (0.1-1.2); Monocytes Percent Auto 10.1 % (2-11); Neutrophils Absolute Auto 5.8 x10*3/uL (2.0-8.3); Neutrophils Percent Auto 78.8 % (45-73); Platelet Count 236 X10*3/uL (160-400); Red Blood Count 3.71 X10*6/uL (4.60-5.80); Red Cell Distribution Width 20.2 % (11.0-16.0); White Blood Count 7.4 X10*3/uL (4.8-10.8)
[2023-01-02 16:42] LABS: Lactic Acid 1.1 mmol/L (0.5-2.0)
[2023-01-02 16:46] LABS: Alanine Aminotransferase 6 U/L (0-40); Albumin Level 4.1 g/dL (3.5-5.0); Alkaline Phosphatase 106 U/L (39-117); Anion Gap 11 (12-20); Aspartate Amino Transferase 11 U/L (5-37); Bilirubin Direct 0.2 mg/dL (0.0-0.5); Bilirubin Total 0.6 mg/dL (0.0-1.0); Blood Urea Nitrogen 54 mg/dL (9-16); Calcium 9.1 mg/dL (8.4-10.2); Carbon Dioxide 26 mmol/L (22-29); Chloride 108 mmol/L (96-108); Creatinine Clr Calc Pharmacy 37.7; Estimated Glomerular Filt Rate 49; Glucose Random 95 mg/dL (60-115); Lipase 37 U/L (8-78); Potassium 4.8 mmol/L (3.3-5.1); Sodium 140 mmol/L (135-145); Total Protein 7.3 g/dL (6.5-8.0)
--- NOTE | 2023-01-02 16:48 | ED_ITS ---
HPI - General Adult General Chief complaint: General Medical Stated complaint: DIFF BREATHING Time Seen by Provider: 01/02/23 15:26 Source: patient and EMS Mode of arrival: EMS Limitations: no limitations History of Present Illness HPI narrative: 87-year-old male with past medical history significant for HTN/CHFrEF came in for evaluation of shortness of breath for past few days, shortness of breath is only with exertion and walking around the house and is better if he rest and not doing any exertion, declined any PND stated that he sleeps well at night. No fever, no chills, no sick contact, no coughing. Related Data Home Medications Medication Instructions Recorded Confirmed metoprolol succinate 100 mg 100 mg PO DAILY 08/11/22 11/05/22 tablet,extended release 24 hr warfarin 5 mg tablet (Jantoven) 10 mg PO MOTUWETHFR 08/11/22 11/05/22 amlodipine 10 mg tablet 1 tab PO DAILY 11/05/22 11/05/22 betamethasone dipropionate 0.05 % 1 appl topical BID PRN Rash 11/05/22 11/05/22 lotion warfarin 5 mg tablet (Jantoven) 5 mg PO SUSA 11/05/22 11/05/22 Previous Rx's Medication Instructions Recorded furosemide 40 mg tablet 1 tab PO DAILY #30 tabs 11/11/22 nystatin 100,000 unit/gram topical 1 appl topical BID #1 g 11/11/22 powder Allergies Allergy/AdvReac Type Severity Reaction Status Date / Time No Known Allergies Allergy Mild NOT Verified 11/05/22 10:02 APPLICABLE Review of Systems Review of Systems: All other systems are reviewed and are negative Constitutional: Reports as per HPI and Reports no additional constitutional complaints Eyes: Reports as per HPI and Reports no additional eye complaints Reports system reviewed and no additional complaints, except as documented Cardiovascular: Reports as per HPI and Reports no additional cardiovascular co mplaints Respiratory: Reports as per HPI and Reports no additional respiratory complaints Gastrointestinal: Reports as per HPI and Reports no additional gastrointestinal complaints Genitourinary: Reports no additional female genitourinary complaints Musculoskeletal: Reports no additional musculoskeletal complaints Skin/Breast: Reports system reviewed and no additional complaints, except as docu Psychiatric: Reports no additional psychiatric complaints Endocrine: Reports no additional endocrine complaints Hematologic/Lymphatic: Reports no additional hematologic/lymphatic complaints Allergic/Immunologic: Reports no additional allergic/immunologic complaints Reports system reviewed and no additional complaints, except as documented and Reports Abnormal speech present [facility] Past Medical History Medical History (HFpEF) heart failure with preserved ejection fraction Acute on chronic diastolic (congestive) heart failure BPH (benign prostatic hyperplasia) CHF (congestive heart failure) CHF (congestive heart failure) Congestive heart failure Herpes zoster, ocular HTN (hypertension) Hypertensive emergency Osteoarthritis Paroxysmal atrial fibrillation Persistent atrial fibrillation Pleural effusion Pleural effusion Pneumonitis Surgical History H/O cataract extraction History of cardioversion History of total right hip arthroplasty Status post colonoscopy with polypectomy Family History Family History Father No problems noted. Mother No problems noted. Social History Social History Household Members: None Housing: House Do you presently have visiting nurse or other home services: No Alcohol intake: never Patient Tobacco Use Status: Never used Tobacco Tobacco use type: Cigarette Years Smoked: 18 years e-Cigarette/Vaping Use: Never Used Advance Directives: Yes Advance Directives on File: Yes Advance Directives Date on File: 04/16/21 service: No (PT DENIES BEING A ) Current occupational status: retired Physical Exam ED Vital Signs: Vital Signs - 24 hr 01/02/23 15:24 Pulse Rate 74 Respiratory Rate 18 Blood Pressure 106/85 Pulse Oximetry 97 Oxygen Delivery Method Nasal Cannula BMI result Body Mass Index 26.6 Appearance: Alert. Oriented X3. No acute distress. Head: Normal external exam. Normocephalic. Atraumatic. No Lange signs noted. No raccoon eyes noted Eyes: PERRLA. EOMI. Conjunctiva and sclera normal. Eyelids normal. ENT: TM's Normal. Pharynx normal. Uvula midline. Moist mucous membranes. No trismus noted. No drooling noted. No muffled voice noted. Neck: Normal inspection. Neck supple. FROM. No adenopathy. Thyroid Normal. No meningeal signs. No neck mass noted. CVS: Normal heart rate and rhythm. Heart sound normal. No murmurs noted. Pulses normal throughout. Respiratory: No respiratory distress. Painless inspiration. Breath sounds normal. No wheezes/rales/rhonchi noted. Chest nontender. No accessory muscle usage noted or decreased air movement noted. Abdomen: Soft and nontender. Bowel sounds normal in all 4 quadrants. No distention noted. No organomegaly noted. No visible injury noted. Back: No CVA tenderness. Full range of motion noted. Skin: Skin warm and dry. Normal skin color. Normal skin turgor. No rashes/lesions/lacerations noted. Extremities: No lower extremity edema. Extremities exhibit normal range of motion. Extremities nontender. Neuro: Oriented X 3. Cranial nerve exam: II-XII are grossly intact No motor deficit. No sensory deficit. Reflexes normal. Course Course Course Narrative: 87-year-old male with history of CHF came in with exertional dyspnea, patient was not taking his Lasix for the past couple days at home. Will admit the patient for diuresis. Medical Decision Making Differential Diagnosis Differential Diagnoses: The differential diagnosis associated with the presentation includes (CHF, pneumonia, pneumothorax, electrolyte abnormalities, ACS, severe anemia.) Admission/Observation Consideration of admission/observation: Escalation of care including admission/observation considered Consult Healthcare Provider Management of the patient was discussed with: Hospitalist Lab Data MDM Lab Attestation statement: I reviewed the patient's lab results. 01/02/23 16:12 01/02/23 16:12 Labs: Lab Results 01/02/23 01/02/23 01/02/23 Range/Units 16:12 16:12 16:12 WBC 7.4 (4.8-10.8) X10*3/uL RBC 3.71 L (4.60-5.80) X10*6/uL Hgb 11.0 L (14.0-18.0) g/dl Hct 35.0 L (42.0-52.0) % MCV 94.3 (80.0-98.0) fL MCH 29.6 (27.0-33.0) pg MCHC 31.4 (31.0-36.0) g/dl RDW 20.2 H (11.0-16.0) % Plt Count 236 (160-400) X10*3/uL MPV 9.9 (9.4-12.4) fL Immature Gran % (Auto) 0.4 (0.0-0.4) % Neut % (Auto) 78.8 H (45-73) % Lymph % (Auto) 8.1 L (20-40) % [place] % (Auto) 10.1 (2-11) % Eos % (Auto) 2.2 (0-4) % Baso % (Auto) 0.4 (0-2) % Lymph # (Auto) 0.6 L (1.2-4.9) X10*3/uL [place] # (Auto) 0.8 (0.1-1.2) X10*3/uL Eos # (Auto) 0.2 (0.0-0.4) X10*3/uL Baso # (Auto) 0.0 (0.0-0.2) X10*3/uL Abs Immat Gran (auto) 0.03 (0.00-0.03) X10*3/uL Absolute Neuts (auto) 5.8 (2.0-8.3) x10*3/uL Absolute Nucleated RBC 0.000 (0.0-0.012) X10*3/uL Nucleated RBC % (auto) 0.0 (0.0-0.2) /100WBC Sodium 140 (135-145) mmol/L Potassium 4.8 (3.3-5.1) mmol/L Chloride 108 (96-108) mmol/L Carbon Dioxide 26 (22-29) mmol/L Anion Gap 11 L (12-20) BUN 54 H (9-16) mg/dL Creatinine 1.38 (0.5-1.4) mg/dL Estim Creat Clear Calc 37.7 Estimated GFR 49 Random Glucose 95 (60-115) mg/dL Lactic Acid (0.5-2.0) mmol/L Calcium 9.1 (8.4-10.2) mg/dL Total Bilirubin 0.6 (0.0-1.0) mg/dL Direct Bilirubin 0.2 (0.0-0.5) mg/dL AST 11 (5-37) U/L ALT 6 (0-40) U/L Alkaline Phosphatase 106 (39-117) U/L Troponin I High Sens 7.8 (<3.5-35.0) ng/L B-Natriuretic Peptide (<100) pg/mL Total Protein 7.3 (6.5-8.0) g/dL Albumin 4.1 (3.5-5.0) g/dL Lipase 37 (8-78) U/L 01/02/23 01/02/23 Range/Units 16:12 16:12 WBC (4.8-10.8) X10*3/uL RBC (4.60-5.80) X10*6/uL Hgb (14.0-18.0) g/dl Hct (42.0-52.0) % MCV (80.0-98.0) fL MCH (27.0-33.0) pg MCHC (31.0-36.0) g/dl RDW (11.0-16.0) % Plt Count (160-400) X10*3/uL MPV (9.4-12.4) fL Immature Gran % (Auto) (0.0-0.4) % Neut % (Auto) (45-73) % Lymph % (Auto) (20-40) % [place] % (Auto) (2-11) % Eos % (Auto) (0-4) % Baso % (Auto) (0-2) % Lymph # (Auto) (1.2-4.9) X10*3/uL [place] # (Auto) (0.1-1.2) X10*3/uL Eos # (Auto) (0.0-0.4) X10*3/uL Baso # (Auto) (0.0-0.2) X10*3/uL Abs Immat Gran (auto) (0.00-0.03) X10*3/uL Absolute Neuts (auto) (2.0-8.3) x10*3/uL Absolute Nucleated RBC (0.0-0.012) X10*3/uL Nucleated RBC % (auto) (0.0-0.2) /100WBC Sodium (135-145) mmol/L Potassium (3.3-5.1) mmol/L Chloride (96-108) mmol/L Carbon Dioxide (22-29) mmol/L Anion Gap (12-20) BUN (9-16) mg/dL Creatinine (0.5-1.4) mg/dL Estim Creat Clear Calc Estimated GFR Random Glucose (60-115) mg/dL Lactic Acid 1.1 (0.5-2.0) mmol/L Calcium (8.4-10.2) mg/dL Total Bilirubin (0.0-1.0) mg/dL Direct Bilirubin (0.0-0.5) mg/dL AST (5-37) U/L ALT (0-40) U/L Alkaline Phosphatase (39-117) U/L Troponin I High Sens (<3.5-35.0) ng/L B-Natriuretic Peptide 1825 H (<100) pg/mL Total Protein (6.5-8.0) g/dL Albumin (3.5-5.0) g/dL Lipase (8-78) U/L Independent Interpretation I performed an independent interpretation of an: Plain X-Ray (Chest: Pulmonary congestion.) Radiology Impression Discussion of test interpretation with radiology: I have reviewed the radiologist's reading. Discharge Plan Discharge Clinical Impression: CHF exacerbation Patient Disposition: Admitted As Inpatient
[2023-01-02 16:54] LABS: Troponin-I High Sensitivity 7.8 ng/L (<3.5-35.0)
[2023-01-02 16:55] LABS: B Type Natriuretic Peptide 1825 pg/mL (<100)
[2023-01-02 17:16] LABS: Influenza A PCR NEGATIVE (Negative); Influenza B PCR NEGATIVE (Negative); Resp Syncy Virus RNA Qual PCR NEGATIVE (Negative); SARS COV2 PCR INHOUSE NEGATIVE (Negative)
--- NOTE | 2023-01-02 18:07 | PM.IMHP ---
History of Present Illness Date of Service: 01/02/23 Attending physician on admission: Sangeeta Hannah Chief Complaint: sob 87-year-old male with a PMH significant for?HTN, CHF with preserved EF, persistent AFib, and BPH presented to the ED earlier today for evaluation of dyspnea on exertion that began yesterday with episode of PND overnight and then worsening FERRARA this morning. Denies orthopnea or worsening BLE. States he has chronic intermittent edema BLE. He does endorse a cough in the morning to clear what sounds to be PND but denies ongoing cough, fevers, chills. No sick contacts. On arrival patient hypoxic to 88% placed on 3L supplemental O2. BP soft at 106/85. Hematology studies unremarkable. Creatinine 1.38, baseline 0.95. BUN 54. Electrolyte levels normal. Troponin 7.8. BNP 1825. Negative for influenza, RSV, COVID-19. CXR showing opacification at the right lung base suggestive pleural effusion but possibly underlying infiltrate versus atelectasis that is unchanged. No acute findings. EKG showing atrial fibrillation, rate 72 with old inferior infarct, no ST or ST depressions. In the ED, 40 mg IV Lasix ordered. Patient was recently admitted from 11/05- for acute on chronic diastolic heart failure exacerbation and was discharged to rehab with oral Lasix which he has been taking as prescribed. During admission, he was followed by Cardiology with updated echocardiogram on 11/06 which showed normal LV systolic function with EF 55-60% and moderate LVH with restrictive filling pattern and severely dilated right ventricle with reduced systolic function and severely dilated atria. There is also moderately elevated right ventricular systolic pressures and significant right atrial pressures. Review of Systems Review of Systems: General: No fevers, malaise, unintentional weight loss HEENT: No blurred vision, diplopia. No sore throat, nasal congestion, rhinorrhea, sinus pain, ear pain Cardiovascular: No chest pain, palpitations, or leg edema Respiratory: +FERRARA, +PND. No orthopnea, wheezing, cough GI: No abdominal pain, nausea, vomiting, diarrhea, constipation, melena, hematochezia : No dysuria, hematuria, increased urinary frequency, decreased urinary output MSK: No myalgia, back pain Neuro: No headaches, weakness, paresthesias Skin: No rashes or lesions [facility] Medical History (HFpEF) heart failure with preserved ejection fraction Acute on chronic diastolic (congestive) heart failure BPH (benign prostatic hyperplasia) CHF (congestive heart failure) CHF (congestive heart failure) Congestive heart failure Herpes zoster, ocular HTN (hypertension) Hypertensive emergency Osteoarthritis Paroxysmal atrial fibrillation Persistent atrial fibrillation Pleural effusion Pleural effusion Pneumonitis Family History Father No problems noted. Mother No problems noted. Surgical History H/O cataract extraction History of cardioversion History of total right hip arthroplasty Status post colonoscopy with polypectomy Social History Household Members: None Housing: House Do you presently have visiting nurse or other home services: No Alcohol intake: never Patient Tobacco Use Status: Never used Tobacco Tobacco use type: Cigarette Years Smoked: 18 years e-Cigarette/Vaping Use: Never Used Advance Directives: Yes Advance Directives on File: Yes Advance Directives Date on File: 04/16/21 service: No (PT DENIES BEING A ) Current occupational status: [employer] Allergies Allergy/AdvReac Type Severity Reaction Status Date / Time No Known Allergies Allergy Mild NOT Verified 11/05/22 10:02 APPLICABLE Active Medications: Current Medications Finasteride (Finasteride 5 Mg Tablet) 5 mg PO DAILY [facility] Metoprolol Succinate (Metoprolol Succinate Er 100 Mg Tab.Er.24h) 100 mg PO DAILY LUPE; Protocol Pharmacy Consult (Consult Rx Perform Med Rec) 1 each MISCELLANE ONCE PRN PRN Reason: Consult order Home Medications Medication Instructions Recorded Confirmed Last Taken Type metoprolol succinate 100 mg 100 mg PO DAILY 08/11/22 01/02/23 01/02/23 History tablet,extended release 24 hr warfarin 5 mg tablet (Jantoven) 10 mg PO MOTUWETHFR 08/11/22 01/02/23 11/04/22 History amlodipine 10 mg tablet 1 tab PO DAILY 11/05/22 01/02/23 01/02/23 History warfarin 5 mg tablet (Jantoven) 5 mg PO SUSA 11/05/22 01/02/23 11/01/22 History chlorhexidine gluconate 0.12 % 10 ml PO DAILY 01/02/23 01/02/23 Unknown History mouthwash finasteride 5 mg tablet 5 mg PO DAILY 01/02/23 01/02/23 01/02/23 History Physical Exam Vital Signs and Narrative: Vital Signs: Last Vital Signs Pulse 74 01/02/23 15:24 Resp 18 01/02/23 15:24 BP 106/85 01/02/23 15:24 Pulse Ox 97 01/02/23 15:24 O2 Del Method Nasal Cannula 01/02/23 15:24 Oxygen Flow Rate 3 01/02/23 15:24 BMI result Body Mass Index 26.6 Constitutional - Awake and Alert, No apparent distress Eyes - PERRLA, EOMI Cardiovascular - S1S2, RRR, 2+ edema LLE, 1+ edema RLE Respiratory - Normal lung expansion, Normal respiratory effort, No respiratory distress, CTA bilaterally Gastrointestinal - NT / ND; +BS; No rebound or guarding Extremities - no calf tenderness bilaterally, no swelling Skin - Warm/Dry Neurological - Alert & oriented x3 Psychological - Appropriate affect Results Labs 01/02/23 16:12 01/02/23 16:12 Labs: Laboratory Results - last 24 hr 01/02/23 01/02/23 01/02/23 16:12 16:12 16:12 MCV 94.3 MCH 29.6 MCHC 31.4 RDW 20.2 H Plt Count 236 MPV 9.9 Immature Gran % (Auto) 0.4 Neut % (Auto) 78.8 H Lymph % (Auto) 8.1 L [place] % (Auto) 10.1 Eos % (Auto) 2.2 Baso % (Auto) 0.4 Lymph # (Auto) 0.6 L [place] # (Auto) 0.8 Eos # (Auto) 0.2 Baso # (Auto) 0.0 Abs Immat Gran (auto) 0.03 Absolute Neuts (auto) 5.8 Absolute Nucleated RBC 0.000 Nucleated RBC % (auto) 0.0 Anion Gap 11 L Estim Creat Clear Calc 37.7 Estimated GFR 49 Random Glucose 95 Lactic Acid Calcium 9.1 Total Bilirubin 0.6 Direct Bilirubin 0.2 AST 11 ALT 6 Alkaline Phosphatase 106 Troponin I High Sens 7.8 B-Natriuretic Peptide Total Protein 7.3 Albumin 4.1 Lipase 37 Influenza Type A (PCR) Influenza Type B (PCR) RSV RNA Qual (PCR) SARS-CoV-2 RNA (RT-PCR) 01/02/23 01/02/23 01/02/23 16:12 16:12 16:12 MCV MCH MCHC RDW Plt Count MPV Immature Gran % (Auto) Neut % (Auto) Lymph % (Auto) [place] % (Auto) Eos % (Auto) Baso % (Auto) Lymph # (Auto) [place] # (Auto) Eos # (Auto) Baso # (Auto) Abs Immat Gran (auto) Absolute Neuts (auto) Absolute Nucleated RBC Nucleated RBC % (auto) Anion Gap Estim Creat Clear Calc Estimated GFR Random Glucose Lactic Acid 1.1 Calcium Total Bilirubin Direct Bilirubin AST ALT Alkaline Phosphatase Troponin I High Sens B-Natriuretic Peptide 1825 H Total Protein Albumin Lipase Influenza Type A (PCR) NEGATIVE Influenza Type B (PCR) NEGATIVE RSV RNA Qual (PCR) NEGATIVE SARS-CoV-2 RNA (RT-PCR) NEGATIVE Imaging Radiologist's Impressions: Impressions Chest X-Ray 01/02/23 15:40 IMPRESSION: * Opacification at right lung base suggest pleural effusion, possible underlying infiltrate and/or atelectasis unchanged. * No pneumothorax. Assessment and Plan (1) Acute on chronic diastolic (congestive) heart failure: Status: Acute Plan 87-year-old male with a PMH significant for?HTN, CHF with preserved EF, persistent AFib, and BPH admitted for acute hypoxemic respiratory failure due to HF exacerbation #Acute hypoxemic respiratory failure -due to HF exacerbation -Continue supplemental O2 to maintain oximetry >92% -Will likely need home O2 eval given advanced diastolic heart failure and pulmonary hypertension #Acute exacerbation of diastolic CHF -IV lasix 40mg daily -strict I&O -cardiac diet -Echo 11/06: normal LV systolic function with EF 55-60% and moderate LVH with restrictive filling pattern and severely dilated right ventricle with reduced systolic function and severely dilated atria.? There is also moderately elevated right ventricular systolic pressures and significant? right atrial pressures. -Appreciate cardiology input #Acute kidney injury -likely cardiorenal, diuresis as above -Follow BMP #Persistent atrial fibrillation- rate controlled -continue coumadin, follow INR -Continue metorpolol #HTN -Hold amlodipine - likely contributing to BLE edema. Continue metoprolol #BPH -continue finasteride DVT prophylaxis- coumadin DNR/DNI Pt requires inpt stay at least 2 midnights for management of acute hypoxemic respiratory failure 2/2 CHF exacerbation requiring IV diuresis, supplemental O2, and expert consultation Time Spent With Patient Time: Total time managing care of this patient today ____ minutes. Quality Stroke Does the patient have a stroke diagnosis?: No VTE Prior VTE?: No VTE Risk Level:: Medical - moderate - high VTE Device Contraindication: Treatment Not Indicated VTE Drug Contraindication: N/A - Med Ordered
--- NOTE | 2023-01-02 18:44 | PC.NURSE ---
Patient initially refused IV insertion & IV medications. Patient requested to receive oral medications instead. Consulted with TONY Hurst who requested that current orders continue. After explaining this to the patient, he stated Fine! But let me eat my dinner first! TONY Staton aware of this. Pt to receive IV & Lasix upon finishing dinner.
[2023-01-02] MEDS: Furosemide 40 MG/4 ML VIAL IVPUSH (19:45)
--- NOTE | 2023-01-02 19:51 | PC.NURSE ---
I assumed care of the pt at 1900. Pt is A&Ox4, GCS 15. Pt ambulated to the bathroom with one assist. Pt reports he normally walks with a cane at home. Pt is on 2 LPM O2, he is not normally on oxygen at home. Pt reports some difficulty breathing after exertion or speaking a lot. Pt is on a monitoring and evaluation advisor at this time. Skin is cool and dry. A 20g IV was placed in the right AC and lasix was given per NOV. Pt was changed over to hospital clothes and is waiting for a room upstairs. Pt's daughter just arrived at the hospital from [place], pt was very excited to see her.
[2023-01-02 19:55] VITALS: BP 91/70; PULSE 69; RESP 20; TEMP 36.6; O2SAT 98
[2023-01-02 20:40] VITALS: BP 138/78; PULSE 70; RESP 20; TEMP 36.5; O2SAT 94
[2023-01-02 21:02] LABS: Appearance Urine Cloudy; Color Urine Yellow; Glucose Urine UA Negative (Negative); Leukocyte Esterase Urine Trace (Negative); Nitrite Urine Negative (Negative); UMIC TRIGGER UACC YES; Urine Blood Negative (Negative); Urine Ketones Negative (Negative); Urine Protein Trace mg/dL (Neg-Trace)
[2023-01-02 21:04] LABS: Bacteria Urine None Seen (None Seen); RBC Urine 0-2 /HPF (0-2); Squamous Epithelial Cell Urine 0-2 /HPF (0-2); WBC Urine 0-5 /HPF (0-5)
[2023-01-02 21:12] VITALS: BMI 29.7
[2023-01-02] MEDS: 0.9 % Sodium Chloride Flush 3 ML SYRINGE IVFLUSH (21:32)
[2023-01-03 04:00] VITALS: BP 123/60; PULSE 70; RESP 16; TEMP 36.7; O2SAT 93
[2023-01-03 05:58] VITALS: BMI 29.0
[2023-01-03 06:14] LABS: MANUAL DIFF FLAG NO
[2023-01-03 06:24] LABS: Basophils Percent Auto 0.6 % (0-2); Eosinophils Absolute Auto 0.2 X10*3/uL (0.0-0.4); Eosinophils Percent Auto 2.8 % (0-4); Hematocrit 35.7 % (42.0-52.0); Imm Gran Abs Auto 0.03 X10*3/uL (0.00-0.03); Imm Gran Pct Auto 0.4 % (0.0-0.4); Lymphocytes Absolute Auto 0.6 X10*3/uL (1.2-4.9); Lymphocytes Percent Auto 9.4 % (20-40); Mean Corpuscular HGB Conc 30.8 g/dl (31.0-36.0); Mean Corpuscular Hemoglobin 28.6 pg (27.0-33.0); Mean Platelet Volume 9.8 fL (9.4-12.4); Monocytes Absolute Auto 0.7 X10*3/uL (0.1-1.2); Monocytes Percent Auto 10.1 % (2-11); Neutrophils Absolute Auto 5.1 x10*3/uL (2.0-8.3); Neutrophils Percent Auto 76.7 % (45-73); Platelet Count 226 X10*3/uL (160-400); Red Blood Count 3.84 X10*6/uL (4.60-5.80); Red Cell Distribution Width 20.1 % (11.0-16.0); White Blood Count 6.7 X10*3/uL (4.8-10.8)
[2023-01-03 06:45] LABS: INTERNATIONAL NORM RATIO 1.8 (0.9-1.1); Prothrombin Time 20.6 SEC (10.0-13.1)
[2023-01-03 06:55] LABS: Anion Gap 14 (12-20); Blood Urea Nitrogen 52 mg/dL (9-16); Calcium 9.1 mg/dL (8.4-10.2); Carbon Dioxide 26 mmol/L (22-29); Chloride 108 mmol/L (96-108); Creatinine Clr Calc Pharmacy 45.6; Estimated Glomerular Filt Rate 54; Glucose Random 96 mg/dL (60-115); Potassium 4.6 mmol/L (3.3-5.1); Sodium 143 mmol/L (135-145)
[2023-01-03 08:00] VITALS: BP 148/80; PULSE 76; RESP 24; TEMP 36; O2SAT 92
[2023-01-03] MEDS: Finasteride 5 MG TABLET PO (09:42)
[2023-01-03] MEDS: Furosemide 40 MG/4 ML VIAL IVPUSH (09:42)
[2023-01-03] MEDS: Metoprolol Succinate ER 100 MG TAB.ER.24H PO (09:42)
[2023-01-03] MEDS: 0.9 % Sodium Chloride Flush 3 ML SYRINGE IVFLUSH ×3 (09:42→20:12)
--- NOTE | 2023-01-03 13:29 | P.PNIM_ITS ---
Subjective Subjective Date of Service: 01/03/23 Interval History: Being followed for CHF patient frustrated since did not sleep well due to being checked for vitals and for blood work, offers no acute complaints wants to know how long he will be in the hospital , requiring 3 L of oxygen finger oximetry 92%, denies PND or orthopnea, no chest pain, no nausea no vomiting tolerating diet, no fever no chills. Review of Systems Review of Systems: Yes all other systems are reviewed and are negative Physical Exam Vital Signs: Vital Signs: Last Vital Signs Temp 96.8 F 01/03/23 08:00 Pulse 76 01/03/23 08:00 Resp 24 H 01/03/23 08:00 BP 148/80 H 01/03/23 08:00 Pulse Ox 92 01/03/23 08:00 O2 Del Method Nasal Cannula 01/03/23 08:00 O2 Flow Rate 3 01/03/23 08:00 Oxygen Flow Rate 3 01/02/23 15:24 BMI result Body Mass Index 29.0 Const: Other: General awake alert x3, in no acute distress. Neck supple no JVD. CVS regular rate rhythm, Respiratory lungs clear to auscultation, no respiratory distress, no wheeze,no rales Gastrointestinal abdomen soft, nontender, bowel sounds audible, no no guarding , no rigidity. Extremities b/l edema. Neuro nonfocal Skin no rash Psych appropriate affect Objective Data Active Medications Acetaminophen (Acetaminophen 325 Mg Tablet) 650 mg PO Q6H PRN PRN Reason: Pain, Mild (Pain Scale 1-3) Docusate Sodium (Docusate Sodium 100 Mg Capsule) 100 mg PO DAILY PRN PRN Reason: Constipation Finasteride (Finasteride 5 Mg Tablet) 5 mg PO DAILY [facility] Last Admin: 01/03/23 09:42 Dose: 5 mg Documented By: SILVIA Furosemide (Furosemide 40 Mg/4 Ml Vial) 40 mg IVPUSH DAILY [facility]; Protocol Last Admin: 01/03/23 09:42 Dose: 40 mg Documented By: SILVIA Metoprolol Succinate (Metoprolol Succinate Er 100 Mg Tab.Er.24h) 100 mg PO DAILY [facility]; Protocol Last Admin: 01/03/23 09:42 Dose: 100 mg Documented By: SILVIA Ondansetron HCl (Ondansetron Hcl 4 Mg/2 Ml Vial) 4 mg IVPUSH Q8H PRN PRN Reason: Nausea and Vomiting Pharmacy Consult (Consult Rx Perform Med Rec) 1 each MISCELLANE ONCE PRN PRN Reason: Consult order Sodium Chloride (0.9 % Sodium Chloride Flush 3 Ml Syringe) [address] [facility] Last Admin: 01/03/23 09:42 Dose: 3 ml Documented By: SILVIA Labs 01/03/23 05:24 01/03/23 05:24 Labs: Laboratory Results - last 24 hr 01/02/23 01/02/23 01/02/23 16:12 16:12 16:12 MCV 94.3 MCH 29.6 MCHC 31.4 RDW 20.2 H Plt Count 236 MPV 9.9 Immature Gran % (Auto) 0.4 Neut % (Auto) 78.8 H Lymph % (Auto) 8.1 L Russell % (Auto) 10.1 Eos % (Auto) 2.2 Baso % (Auto) 0.4 Lymph # (Auto) 0.6 L Russell # (Auto) 0.8 Eos # (Auto) 0.2 Baso # (Auto) 0.0 Abs Immat Gran (auto) 0.03 Absolute Neuts (auto) 5.8 Absolute Nucleated RBC 0.000 Nucleated RBC % (auto) 0.0 PT INR Anion Gap 11 L Estim Creat Clear Calc 37.7 Estimated GFR 49 Random Glucose 95 Lactic Acid Calcium 9.1 Total Bilirubin 0.6 Direct Bilirubin 0.2 AST 11 ALT 6 Alkaline Phosphatase 106 Troponin I High Sens 7.8 B-Natriuretic Peptide Total Protein 7.3 Albumin 4.1 Lipase 37 Urine Color Urine Appearance Urine pH Ur Specific [place] Urine Protein Urine Glucose (UA) Urine Ketones Urine Blood Urine Nitrite Ur Leukocyte Esterase Urine RBC Urine WBC Ur Squamous Epith Cells Urine Bacteria Hyaline Casts Influenza Type A (PCR) Influenza Type B (PCR) RSV RNA Qual (PCR) SARS-CoV-2 RNA (RT-PCR) 01/02/23 01/02/23 01/02/23 16:12 16:12 16:12 MCV MCH MCHC RDW Plt Count MPV Immature Gran % (Auto) Neut % (Auto) Lymph % (Auto) Russell % (Auto) Eos % (Auto) Baso % (Auto) Lymph # (Auto) [place] # (Auto) Eos # (Auto) Baso # (Auto) Abs Immat Gran (auto) Absolute Neuts (auto) Absolute Nucleated RBC Nucleated RBC % (auto) PT INR Anion Gap Estim Creat Clear Calc Estimated GFR Random Glucose Lactic Acid 1.1 Calcium Total Bilirubin Direct Bilirubin AST ALT Alkaline Phosphatase Troponin I High Sens B-Natriuretic Peptide 1825 H Total Protein Albumin Lipase Urine Color Urine Appearance Urine pH Ur Specific [place] Urine Protein Urine Glucose (UA) Urine Ketones Urine Blood Urine Nitrite Ur Leukocyte Esterase Urine RBC Urine WBC Ur Squamous Epith Cells Urine Bacteria Hyaline Casts Influenza Type A (PCR) NEGATIVE Influenza Type B (PCR) NEGATIVE RSV RNA Qual (PCR) NEGATIVE SARS-CoV-2 RNA (RT-PCR) NEGATIVE 01/02/23 01/03/23 01/03/23 20:37 05:24 05:24 MCV 93.0 MCH 28.6 MCHC 30.8 L RDW 20.1 H Plt Count 226 MPV 9.8 Immature Gran % (Auto) 0.4 Neut % (Auto) 76.7 H Lymph % (Auto) 9.4 L Russell % (Auto) 10.1 Eos % (Auto) 2.8 Baso % (Auto) 0.6 Lymph # (Auto) 0.6 L Russell # (Auto) 0.7 Eos # (Auto) 0.2 Baso # (Auto) 0.0 Abs Immat Gran (auto) 0.03 Absolute Neuts (auto) 5.1 Absolute Nucleated RBC 0.000 Nucleated RBC % (auto) 0.0 PT 20.6 H INR 1.8 H Anion Gap Estim Creat Clear Calc Estimated GFR Random Glucose Lactic Acid Calcium Total Bilirubin Direct Bilirubin AST ALT Alkaline Phosphatase Troponin I High Sens B-Natriuretic Peptide Total Protein Albumin Lipase Urine Color Yellow Urine Appearance Cloudy Urine pH 5.0 Ur Specific [place] 1.010 Urine Protein Trace Urine Glucose (UA) Negative Urine Ketones Negative Urine Blood Negative Urine Nitrite Negative Ur Leukocyte Esterase Trace H Urine RBC 0-2 Urine WBC 0-5 Ur Squamous Epith Cells 0-2 Urine Bacteria None Seen Hyaline Casts 3-5 Influenza Type A (PCR) Influenza Type B (PCR) RSV RNA Qual (PCR) SARS-CoV-2 RNA (RT-PCR) 01/03/23 05:24 MCV MCH MCHC RDW Plt Count MPV Immature Gran % (Auto) Neut % (Auto) Lymph % (Auto) Russell % (Auto) Eos % (Auto) Baso % (Auto) Lymph # (Auto) [place] # (Auto) Eos # (Auto) Baso # (Auto) Abs Immat Gran (auto) Absolute Neuts (auto) Absolute Nucleated RBC Nucleated RBC % (auto) PT INR Anion Gap 14 Estim Creat Clear Calc 45.6 Estimated GFR 54 Random Glucose 96 Lactic Acid Calcium 9.1 Total Bilirubin Direct Bilirubin AST ALT Alkaline Phosphatase Troponin I High Sens B-Natriuretic Peptide Total Protein Albumin Lipase Urine Color Urine Appearance Urine pH Ur Specific [place] Urine Protein Urine Glucose (UA) Urine Ketones Urine Blood Urine Nitrite Ur Leukocyte Esterase Urine RBC Urine WBC Ur Squamous Epith Cells Urine Bacteria Hyaline Casts Influenza Type A (PCR) Influenza Type B (PCR) RSV RNA Qual (PCR) SARS-CoV-2 RNA (RT-PCR) Assessment and Plan (1) CHF exacerbation: Status: Acute (2) Persistent atrial fibrillation: Status: Acute Plan 87-year-old male with a PMH significant for?HTN, CHF with preserved EF, persistent AFib, and BPH admitted for acute hypoxemic respiratory failure due to HF exacerbation #Acute hypoxemic respiratory failure -due to HF exacerbation, Continue supplemental O2 to maintain oximetry >92%, oxygenation drops to low 80s talking and with exertion -Will likely need home O2 eval given advanced diastolic heart failure and pulmonary hypertension #Acute exacerbation of diastolic CHF -denies shortness of breath ,neg. 500ml , question accuracy of output, will continue IV lasix 40mg daily, renal function improving, at home takes Lasix 40 mg daily -Echo 11/06: normal LV systolic function with EF 55-60% and moderate LVH with restrictive filling pattern and severely dilated right ventricle with reduced systolic function and severely dilated atria, moderately elevated right ventricular systolic pressures and significant? right atrial pressures. Chest x-ray nonspecific showing opacification right lung base question pleural effusion versus infiltrate or atelectasis, -strict I&O, repeat chest x-ray at a.m. # acute kidney injury noted to have decline in renal function since November of 2022, renal function improving with diuretics follow BMP #Persistent atrial fibrillation- rate controlled -continue coumadin, INR 1.8, follow INR, Continue metorpolol. #HTN -Hold amlodipine - likely contributing to BLE edema and due to soft blood press ure on arrival,, Continue metoprolol follow BP #BPH -continue finasteride DVT prophylaxis- coumadin DNR/DNI Pt requires continued inpatient stay for acute hypoxemic respiratory failure 2/2 CHF exacerbation requiring IV diuresis, supplemental O2, and expert consultation Time Spent With Patient Time: Total time managing care of this patient today ____ minutes. Quality Stroke Does the patient have a stroke diagnosis?: No VTE Prior VTE?: No VTE Risk Level:: Medical - moderate - high VTE Device Contraindication: Treatment Not Indicated VTE Drug Contraindication: N/A - Med Ordered
--- NOTE | 2023-01-03 14:58 | MHC.CM.PN ---
Addendum entered by Kathleen Arreaga RN 01/03/23 15:07: IMM 01/03 IN CHART Original Note: PATIENT LIVES ALONE. STEP-DAUGHTER/HCP (ON FILE) CHECKS IN DAILY PATIENT HAS TWO CANES FOR BALANCE WHEN NEEDED.NO [facility] OR ELDER SERVICES WHEN ASKED IF HE IS [facility] CONNECTED, HE DENIES. DAUGHTER RONNI ([phone])WAS ON UNIT AND FEELS THAT PATIENT HAD A [facility] RN VISIT RECENTLY. 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 ([facility] CLOSED ON SUNDAYS) PATIENT IS ANXIOUS TO DC HOME.
[2023-01-03 15:35] VITALS: BP 145/76; PULSE 67; RESP 15; TEMP 36.1; O2SAT 93
--- NOTE | 2023-01-03 15:40 | PM.CNCAR ---
History of Present Illness History of Present Illness Date of Service: 01/03/23 Chief complaint: chf exacerbation Narrative: [age] gentleman with known history of congestive heart failure presenting with shortness of breath, lower extremity edema and congestion. He said he was feeling like that for few days. He was felt to be in congestive heart failure and has been diuresed. Continues to have peripheral edema and shortness of breath. He is saying that he is overall feeling somewhat better compared to yesterday. He has history of atrial fibrillation and has been on Coumadin and Toprol XL. Denying any significant symptoms otherwise. [facility] Past Medical History Medical History (HFpEF) heart failure with preserved ejection fraction Acute on chronic diastolic (congestive) heart failure BPH (benign prostatic hyperplasia) CHF (congestive heart failure) CHF (congestive heart failure) Congestive heart failure Herpes zoster, ocular HTN (hypertension) Hypertensive emergency Osteoarthritis Paroxysmal atrial fibrillation Persistent atrial fibrillation Pleural effusion Pleural effusion Pneumonitis Family History Family History Father No problems noted. Mother No problems noted. Surgical History Surgical History H/O cataract extraction History of cardioversion History of total right hip arthroplasty Status post colonoscopy with polypectomy Social History Social History Household Members: None Housing: House Do you presently have visiting nurse or other home services: No Alcohol intake: never Patient Tobacco Use Status: Never used Tobacco Tobacco use type: Cigarette Years Smoked: 18 years Smoked in Last 30 Days: No e-Cigarette/Vaping Use: Never Used Patient Interested in Nicotine Replacement: No Patient Given Instructions on How to Stop Smoking: No Second Hand Smoke Exposure: No Use of substances other than those prescribed or required for medical reasons: No Currently Displaying Signs/Symptoms of Drug Intoxication Withdrawal: No Any prior treatment program specific to substance use: No Have you been hit, kicked, punched, or otherwise hurt by someone within the past year? If so, by whom?: No Do you feel safe in your current relationship?: No Current Relationship Is there a partner from a previous relationship who is making you feel unsafe now?: No Are you made to feel afraid or neglected: No Advance Directives: Yes Advance Directives on File: Yes Advance Directives Date on File: 04/16/21 Do you have thoughts of harming others: None Do you have a plan to hurt others: No Plan Recently lost weight without trying: No Eating poorly because of decreased appetite: No Nutrition Risks: No Nutritional Risk Poor oral hygiene: No service: No (PT DENIES BEING A ) Current occupational status: retired Meds Allergies Allergy/AdvReac Type Severity Reaction Status Date / Time No Known Allergies Allergy Mild NOT Verified 11/05/22 10:02 APPLICABLE Active Medications: Current Medications Acetaminophen (Acetaminophen 325 Mg Tablet) 650 mg PO Q6H PRN PRN Reason: Pain, Mild (Pain Scale 1-3) Docusate Sodium (Docusate Sodium 100 Mg Capsule) 100 mg PO DAILY PRN PRN Reason: Constipation Finasteride (Finasteride 5 Mg Tablet) 5 mg PO DAILY [facility] Last Admin: 01/03/23 09:42 Dose: 5 mg Furosemide (Furosemide 40 Mg/4 Ml Vial) 40 mg IVPUSH DAILY [facility]; Protocol Last Admin: 01/03/23 09:42 Dose: 40 mg Metoprolol Succinate (Metoprolol Succinate Er 100 Mg Tab.Er.24h) 100 mg PO DAILY [facility]; Protocol Last Admin: 01/03/23 09:42 Dose: 100 mg Ondansetron HCl (Ondansetron Hcl 4 Mg/2 Ml Vial) 4 mg IVPUSH Q8H PRN PRN Reason: Nausea and Vomiting Pharmacy Consult (Consult Rx Perform Med Rec) 1 each MISCELLANE ONCE PRN PRN Reason: Consult order Sodium Chloride (0.9 % Sodium Chloride Flush 3 Ml Syringe) 3 ml IVFLUSH QSHIFT [facility] Last Admin: 01/03/23 09:42 Dose: 3 ml Warfarin Sodium (Warfarin Sodium 5 Mg Tablet) 5 mg PO SuSa@1800 LUPE Warfarin Sodium (Warfarin Sodium 10 Mg Tablet) 10 mg PO [email or web address] [facility] Home Medications Medication Instructions Recorded Confirmed Last Taken Type metoprolol succinate 100 mg 100 mg PO DAILY 08/11/22 01/02/23 01/02/23 History tablet,extended release 24 hr warfarin 5 mg tablet (Jantoven) 10 mg PO [email or web address] 08/11/22 01/02/23 11/04/22 History amlodipine 10 mg tablet 1 tab PO DAILY 11/05/22 01/02/23 01/02/23 History warfarin 5 mg tablet (Jantoven) 5 mg PO SUSA 11/05/22 01/02/23 11/01/22 History chlorhexidine gluconate 0.12 % 10 ml PO DAILY 01/02/23 01/02/23 Unknown History mouthwash finasteride 5 mg tablet 5 mg PO DAILY 01/02/23 01/02/23 01/02/23 History Physical Exam Vital Signs: Vital Signs: Last Vital Signs Temp 96.9 F 01/03/23 15:35 Pulse 67 01/03/23 15:35 Resp 15 01/03/23 15:35 BP 145/76 H 01/03/23 15:35 Pulse Ox 93 01/03/23 15:35 O2 Del Method Nasal Cannula 01/03/23 15:35 O2 Flow Rate 3 01/03/23 15:35 Oxygen Flow Rate 3 01/02/23 15:24 BMI result Body Mass Index 29.0 GENERAL APPEARANCE: in no acute distress, pleasant. NECK: no carotid bruit, + jugular venous distention. SKIN: no suspicious lesions, warm and dry. HEART: no murmurs, irregular rate and rhythm. LUNGS: clear to auscultation bilaterally. ABDOMEN: soft, nontender. EXTREMITIES: ++ edema. PERIPHERAL PULSES: equal. NEUROLOGIC: No gross deficits, AAO X 3 Objective Labs and Meds 01/03/23 05:24 01/03/23 05:24 Lab results: Laboratory Results - last 24 hr 01/02/23 01/02/23 01/02/23 16:12 16:12 16:12 WBC 7.4 RBC 3.71 L Hgb 11.0 L Hct 35.0 L MCV 94.3 MCH 29.6 MCHC 31.4 RDW 20.2 H Plt Count 236 MPV 9.9 Immature Gran % (Auto) 0.4 Neut % (Auto) 78.8 H Lymph % (Auto) 8.1 L [place] % (Auto) 10.1 Eos % (Auto) 2.2 Baso % (Auto) 0.4 Lymph # (Auto) 0.6 L [place] # (Auto) 0.8 Eos # (Auto) 0.2 Baso # (Auto) 0.0 Abs Immat Gran (auto) 0.03 Absolute Neuts (auto) 5.8 Absolute Nucleated RBC 0.000 Nucleated RBC % (auto) 0.0 PT INR Sodium 140 Potassium 4.8 Chloride 108 Carbon Dioxide 26 Anion Gap 11 L BUN 54 H Creatinine 1.38 Estim Creat Clear Calc 37.7 Estimated GFR 49 Random Glucose 95 Lactic Acid Calcium 9.1 Total Bilirubin 0.6 Direct Bilirubin 0.2 AST 11 ALT 6 Alkaline Phosphatase 106 Troponin I High Sens 7.8 B-Natriuretic Peptide Total Protein 7.3 Albumin 4.1 Lipase 37 Urine Color Urine Appearance Urine pH Ur Specific [place] Urine Protein Urine Glucose (UA) Urine Ketones Urine Blood Urine Nitrite Ur Leukocyte Esterase Urine RBC Urine WBC Ur Squamous Epith Cells Urine Bacteria Hyaline Casts Influenza Type A (PCR) Influenza Type B (PCR) RSV RNA Qual (PCR) SARS-CoV-2 RNA (RT-PCR) 01/02/23 01/02/23 01/02/23 16:12 16:12 16:12 WBC RBC Hgb Hct MCV MCH MCHC RDW Plt Count MPV Immature Gran % (Auto) Neut % (Auto) Lymph % (Auto) [place] % (Auto) Eos % (Auto) Baso % (Auto) Lymph # (Auto) [place] # (Auto) Eos # (Auto) Baso # (Auto) Abs Immat Gran (auto) Absolute Neuts (auto) Absolute Nucleated RBC Nucleated RBC % (auto) PT INR Sodium Potassium Chloride Carbon Dioxide Anion Gap BUN Creatinine Estim Creat Clear Calc Estimated GFR Random Glucose Lactic Acid 1.1 Calcium Total Bilirubin Direct Bilirubin AST ALT Alkaline Phosphatase Troponin I High Sens B-Natriuretic Peptide 1825 H Total Protein Albumin Lipase Urine Color Urine Appearance Urine pH Ur Specific [place] Urine Protein Urine Glucose (UA) Urine Ketones Urine Blood Urine Nitrite Ur Leukocyte Esterase Urine RBC Urine WBC Ur Squamous Epith Cells Urine Bacteria Hyaline Casts Influenza Type A (PCR) NEGATIVE Influenza Type B (PCR) NEGATIVE RSV RNA Qual (PCR) NEGATIVE SARS-CoV-2 RNA (RT-PCR) NEGATIVE 01/02/23 01/03/23 01/03/23 20:37 05:24 05:24 WBC 6.7 RBC 3.84 L Hgb 11.0 L Hct 35.7 L MCV 93.0 MCH 28.6 MCHC 30.8 L RDW 20.1 H Plt Count 226 MPV 9.8 Immature Gran % (Auto) 0.4 Neut % (Auto) 76.7 H Lymph % (Auto) 9.4 L [place] % (Auto) 10.1 Eos % (Auto) 2.8 Baso % (Auto) 0.6 Lymph # (Auto) 0.6 L [place] # (Auto) 0.7 Eos # (Auto) 0.2 Baso # (Auto) 0.0 Abs Immat Gran (auto) 0.03 Absolute Neuts (auto) 5.1 Absolute Nucleated RBC 0.000 Nucleated RBC % (auto) 0.0 PT 20.6 H INR 1.8 H Sodium Potassium Chloride Carbon Dioxide Anion Gap BUN Creatinine Estim Creat Clear Calc Estimated GFR Random Glucose Lactic Acid Calcium Total Bilirubin Direct Bilirubin AST ALT Alkaline Phosphatase Troponin I High Sens B-Natriuretic Peptide Total Protein Albumin Lipase Urine Color Yellow Urine Appearance Cloudy Urine pH 5.0 Ur Specific [place] 1.010 Urine Protein Trace Urine Glucose (UA) Negative Urine Ketones Negative Urine Blood Negative Urine Nitrite Negative Ur Leukocyte Esterase Trace H Urine RBC 0-2 Urine WBC 0-5 Ur Squamous Epith Cells 0-2 Urine Bacteria None Seen Hyaline Casts 3-5 Influenza Type A (PCR) Influenza Type B (PCR) RSV RNA Qual (PCR) SARS-CoV-2 RNA (RT-PCR) 01/03/23 05:24 WBC RBC Hgb Hct MCV MCH MCHC RDW Plt Count MPV Immature Gran % (Auto) Neut % (Auto) Lymph % (Auto) [place] % (Auto) Eos % (Auto) Baso % (Auto) Lymph # (Auto) [place] # (Auto) Eos # (Auto) Baso # (Auto) Abs Immat Gran (auto) Absolute Neuts (auto) Absolute Nucleated RBC Nucleated RBC % (auto) PT INR Sodium 143 Potassium 4.6 Chloride 108 Carbon Dioxide 26 Anion Gap 14 BUN 52 H Creatinine 1.26 Estim Creat Clear Calc 45.6 Estimated GFR 54 Random Glucose 96 Lactic Acid Calcium 9.1 Total Bilirubin Direct Bilirubin AST ALT Alkaline Phosphatase Troponin I High Sens B-Natriuretic Peptide Total Protein Albumin Lipase Urine Color Urine Appearance Urine pH Ur Specific [place] Urine Protein Urine Glucose (UA) Urine Ketones Urine Blood Urine Nitrite Ur Leukocyte Esterase Urine RBC Urine WBC Ur Squamous Epith Cells Urine Bacteria Hyaline Casts Influenza Type A (PCR) Influenza Type B (PCR) RSV RNA Qual (PCR) SARS-CoV-2 RNA (RT-PCR) Imaging Radiologist's impression: Impressions Chest X-Ray 01/02/23 15:40 IMPRESSION: * Opacification at right lung base suggest pleural effusion, possible underlying infiltrate and/or atelectasis unchanged. * No pneumothorax. Assessment and Plan (1) Acute on chronic diastolic (congestive) heart failure: Status: Acute Plan [age] gentleman with known history of chronic heart failure presenting with lower extremity edema and shortness of breath. Clinically he is volume overloaded. Agree with IV diuretics at this stage. He is rate controlled currently. He is on Coumadin. Blood pressure control can be better. His home medications can be continued. If blood pressure continues to be elevated then isosorbide mononitrate can be added to his regimen. We will along with you. Thank you for allowing me to participate in the care of your patient. Please feel free to contact me if you have any questions. Time Spent With Patient Time: Total time managing care of this patient today ____ minutes. Procedures Date of Service Date of Service: 01/03/23
--- NOTE | 2023-01-03 15:49 | MHC.CM.PN ---
[facility] CAN OFFER SERVICES AT [facility] IF NEEDED. THEY DO NOT HAVE A [facility] BOSS. REFERRAL PLACED TO [facility] FOR INTAKE ASSESSMENT (WITH PATIENT PERMISSION)
[2023-01-03] MEDS: Warfarin Sodium 5 MG TABLET PO (17:28)
[2023-01-03 19:36] VITALS: BP 135/65; PULSE 72; RESP 15; TEMP 36.4; O2SAT 91
[2023-01-04 03:57] VITALS: BP 137/65; PULSE 85; RESP 18; TEMP 36.6; O2SAT 93
[2023-01-04 08:00] VITALS: BP 146/65; PULSE 70; RESP 20; TEMP 36.5; O2SAT 96
[2023-01-04 08:25] LABS: INTERNATIONAL NORM RATIO 2.1 (0.9-1.1); Prothrombin Time 25.1 SEC (10.0-13.1)
[2023-01-04 08:40] LABS: B Type Natriuretic Peptide 1940 pg/mL (<100)
[2023-01-04 08:56] LABS: Anion Gap 11 (12-20); Blood Urea Nitrogen 43 mg/dL (9-16); Calcium 9.3 mg/dL (8.4-10.2); Carbon Dioxide 29 mmol/L (22-29); Chloride 108 mmol/L (96-108); Creatinine Clr Calc Pharmacy 56.9; Estimated Glomerular Filt Rate > 60; Sodium 143 mmol/L (135-145)
[2023-01-04] MEDS: Finasteride 5 MG TABLET PO (09:18)
[2023-01-04] MEDS: Metoprolol Succinate ER 100 MG TAB.ER.24H PO (09:18)
[2023-01-04] MEDS: Furosemide 40 MG/4 ML VIAL IVPUSH (09:18)
[2023-01-04] MEDS: 0.9 % Sodium Chloride Flush 3 ML SYRINGE IVFLUSH ×3 (09:18→22:07)
--- NOTE | 2023-01-04 10:12 | P.PNCA_ITS ---
Subjective Subjective Date of Service: 01/04/23 Principal diagnosis: Acute congestive heart failure Interval history: Patient says he is breathing a lot better compared to when he came into the hospital but still appears to be short of breath. Heart rate is well c ontrolled. Blood pressure is stable. Kidney functions have improved. He has been diuresing well in appears like he has about 1.5 L of negative balance. Denies any other cardiac symptoms at current time. Review of Systems Constitutional: Reports no additional constitutional complaints Cardiovascular: Denies chest pain, Reports leg edema, Denies palpitations and Reports dyspnea on exertion Respiratory: Reports dyspnea on exertion Reports system reviewed and no additional complaints, except as documented Endocrine: Denies palpitations Physical Exam Vital Signs: Last Vital Signs Temp 97.7 F 01/04/23 08:00 Pulse 70 01/04/23 08:00 Resp 20 01/04/23 08:00 BP 146/65 H 01/04/23 08:00 Pulse Ox 96 01/04/23 08:00 O2 Del Method Nasal Cannula 01/04/23 08:00 O2 Flow Rate 4 01/04/23 08:00 Oxygen Flow Rate 3 01/02/23 15:24 BMI result Body Mass Index 29.0 GENERAL APPEARANCE: in no acute distress, pleasant. NECK: no carotid bruit, + jugular venous distention. SKIN: no suspicious lesions, warm and dry. HEART: no murmurs, irregular rate and rhythm. LUNGS: clear to auscultation bilaterally. ABDOMEN: soft, nontender. EXTREMITIES: ++ edema. PERIPHERAL PULSES: equal. NEUROLOGIC: No gross deficits, AAO X 3 Objective Labs and Meds 01/03/23 05:24 01/04/23 07:28 Lab results: Laboratory Results - last 24 hr 01/04/23 01/04/23 01/04/23 07:28 07:28 07:28 PT 25.1 H INR 2.1 H Sodium 143 Potassium 5.0 Chloride 108 Carbon Dioxide 29 Anion Gap 11 L BUN 43 H Creatinine 1.01 Estim Creat Clear Calc 56.9 Estimated GFR > 60 Calcium 9.3 B-Natriuretic Peptide 1940 H Imaging Radiologist's impression: Impressions Chest X-Ray 01/04/23 09:57 IMPRESSION: New CHF. Probable atelectasis or consolidation at the right lung base. Progress Note: A&P Assessment and plan (1) CHF exacerbation: Status: Acute Assessment and Plan: CHF exacerbation with diastolic dysfunction the setting of chronic atrial fibrillation. Unclear if he still understands management of heart failure very well. CHF education to be provided. Discussed with him that at home if he starts gaining weight and has leg edema and getting worse shortness of breath should take extra diuretics to avoid hospitalization. Continue current IV diuresis. Not ready for discharge as yet. Strict intake and output chart needs to be pursued P add Jardiance 10 mg to his regimen for heart failure preserved ejection fraction. Continue to monitor BMP and BNP. Once his symptomatic Lisa much better and BNP is less than 50% of admission value can potentially discharge him home. (2) Persistent atrial fibrillation: Status: Acute Assessment and Plan: Persistent rate control atrial fibrillation. Continue rate control approach metoprolol. Has failed rhythm control approach. Continue full oral anticoagula tion, currently on warfarin therapy. Target INR between 2 and 3. Will continue to follow with you Time Spent With Patient Time: Total time managing care of this patient today ____ minutes. Progress Note: Quality Stroke Does the patient have a stroke diagnosis?: No Procedures Date of Service Date of Service: 01/04/23
[2023-01-04 12:00] LABS: Glucose Random 87 mg/dL (60-115)
[2023-01-04] MEDS: Empagliflozin 10 MG TABLET PO (12:28)
--- NOTE | 2023-01-04 12:28 | HO.PM.IMPN ---
Subjective Subjective Date of Service: 01/04/23 Interval History: dyspnea improved still quite edematous diuresing well but still on O2 Review of Systems Review of Systems: Yes all other systems are reviewed and are negative Physical Exam Vital Signs: Vital Signs: Last Vital Signs Temp 97.7 F 01/04/23 08:00 Pulse 70 01/04/23 08:00 Resp 20 01/04/23 08:00 BP 146/65 H 01/04/23 08:00 Pulse Ox 96 01/04/23 08:00 O2 Del Method Nasal Cannula 01/04/23 08:00 O2 Flow Rate 4 01/04/23 08:00 Oxygen Flow Rate 3 01/02/23 15:24 BMI result Body Mass Index 29.0 Gen: in no acute distress HEENT: sclera anicteric, moist mucus membranes Neck: supple, JVD present Lungs: clear to auscultation bilaterally Heart: irregularly irregular, no murmurs Abd: soft, non-tender, non-distended Ext: 2+ lower extremity edema bilaterally Skin: warm/well-perfused Neuro: alert and oriented x3, no focal findings Psych: appropriate affect Objective Data Active Medications Acetaminophen (Acetaminophen 325 Mg Tablet) 650 mg PO Q6H PRN PRN Reason: Pain, Mild (Pain Scale 1-3) Docusate Sodium (Docusate Sodium 100 Mg Capsule) 100 mg PO DAILY PRN PRN Reason: Constipation Empagliflozin (Empagliflozin 10 Mg Tablet) 10 mg PO DAILY [facility] Finasteride (Finasteride 5 Mg Tablet) 5 mg PO DAILY [facility] Last Admin: 01/04/23 09:18 Dose: 5 mg Documented By: TONYA Furosemide (Furosemide 40 Mg/4 Ml Vial) 40 mg IVPUSH DAILY [facility]; Protocol Last Admin: 01/04/23 09:18 Dose: 40 mg Documented By: TONYA Metoprolol Succinate (Metoprolol Succinate Er 100 Mg Tab.Er.24h) 100 mg PO DAILY [facility]; Protocol Last Admin: 01/04/23 09:18 Dose: 100 mg Documented By: TONYA Ondansetron HCl (Ondansetron Hcl 4 Mg/2 Ml Vial) 4 mg IVPUSH Q8H PRN PRN Reason: Nausea and Vomiting Pharmacy Consult (Consult Rx Perform Med Rec) 1 each MISCELLANE ONCE PRN PRN Reason: Consult order Sodium Chloride (0.9 % Sodium Chloride Flush 3 Ml Syringe) 3 ml IVFLUSH QSHIFT [facility] Last Admin: 01/04/23 09:18 Dose: 3 ml Documented By: TONYA Warfarin Sodium (Warfarin Sodium 5 Mg Tablet) 5 mg PO SuSa@1800 [facility] Last Admin: 01/03/23 17:28 Dose: 5 mg Documented By: SILVIA Warfarin Sodium (Warfarin Sodium 10 Mg Tablet) 10 mg PO MoTuWeThFr@1800 [facility] Labs 01/03/23 05:24 01/04/23 07:28 Labs: Laboratory Results - last 24 hr 01/04/23 01/04/23 01/04/23 07:28 07:28 07:28 PT 25.1 H INR 2.1 H Anion Gap 11 L Estim Creat Clear Calc 56.9 Estimated GFR > 60 Random Glucose 87 Calcium 9.3 B-Natriuretic Peptide 1940 H Microbiology Microbiology Results: Microbiology 01/02/23 16:12 Blood Culture - Preliminary Blood - Venous No growth after 24 hours. 01/02/23 16:12 Blood Culture - Preliminary Blood - Venous No growth after 24 hours. Assessment and Plan (1) CHF exacerbation: Status: Acute (2) Persistent atrial fibrillation: Status: Acute Plan d#3 87yo M with HTN, HFpEF, persistent AF, BPH admitted for acute hypoxia due to CHF exacerbation # acute hypoxic resp failure - wean O2 as tolerated, home O2 eval prior to discharge # acute/chronic HFpEF - TTE 11/06/2223 grade 3 diastolic dysfunction, reduced RVEF - continue IV diuresis with furosemide; negative 1.5L thus far - add empagliflozin per Cardiology - continue metoprolol # JAMIE - improved with diuresis, likely had some degree of cardiorenal syndrome # HTN - continue metorpolol, d/c amlodipine # persistent AF - continue metoprolol for rate control - continue warfarin for anticoagulation; monitor INR daily [2.1 today] # BPH - continue finasteride # VTE ppx: warfarin # dispo: eventual home with [facility] In my clinical judgment, the patient requires continued inpatient hospitalization for the following reasons: IV diuresis, hypoxia Time Spent With Patient Time: Total time managing care of this patient today _40___ minutes. Quality Stroke Does the patient have a stroke diagnosis?: No VTE Prior VTE?: No VTE Risk Level:: Medical - moderate - high VTE Device Contraindication: Treatment Not Indicated VTE Drug Contraindication: N/A - Med Ordered
[2023-01-04 16:00] VITALS: BP 132/60; PULSE 77; RESP 22; TEMP 36.9; O2SAT 94
[2023-01-04] MEDS: Warfarin Sodium 10 MG TABLET PO (17:08)
[2023-01-04 20:00] VITALS: BP 137/80; PULSE 78; RESP 16; TEMP 36.4; O2SAT 99
[2023-01-05 03:30] VITALS: BP 115/70; PULSE 78; RESP 16; TEMP 36.6; O2SAT 93
[2023-01-05 05:54] LABS: INTERNATIONAL NORM RATIO 2.6 (0.9-1.1); Prothrombin Time 30.6 SEC (10.0-13.1)
[2023-01-05 06:04] LABS: B Type Natriuretic Peptide 1609 pg/mL (<100)
[2023-01-05 06:10] LABS: Anion Gap 13 (12-20); Blood Urea Nitrogen 34 mg/dL (9-16); Calcium 8.6 mg/dL (8.4-10.2); Carbon Dioxide 26 mmol/L (22-29); Chloride 108 mmol/L (96-108); Creatinine Clr Calc Pharmacy 58.6; Estimated Glomerular Filt Rate > 60; Glucose Random 77 mg/dL (60-115); Magnesium 2.3 mg/dL (1.6-2.6); Sodium 143 mmol/L (135-145)
[2023-01-05 08:00] VITALS: BP 134/73; PULSE 80; RESP 17; TEMP 36.9; O2SAT 95
[2023-01-05] MEDS: Finasteride 5 MG TABLET PO (08:00)
[2023-01-05] MEDS: 0.9 % Sodium Chloride Flush 3 ML SYRINGE IVFLUSH ×3 (08:00→23:01)
[2023-01-05] MEDS: Metoprolol Succinate ER 100 MG TAB.ER.24H PO (08:00)
[2023-01-05] MEDS: Empagliflozin 10 MG TABLET PO (08:00)
[2023-01-05 08:31] LABS: Procalcitonin 0.04 ng/mL
[2023-01-05] MEDS: Furosemide 40 MG/4 ML VIAL IVPUSH (10:41)
--- NOTE | 2023-01-05 11:00 | P.PNIM_ITS ---
Subjective Subjective Date of Service: 01/05/23 Interval History: still having some dyspnea + legs are still quite swollen will qualify for home O2 at this point Review of Systems Review of Systems: Yes all other systems are reviewed and are negative Physical Exam Vital Signs: Vital Signs: Last Vital Signs Temp 98.4 F 01/05/23 08:00 Pulse 80 01/05/23 08:00 Resp 17 01/05/23 08:00 BP 134/73 01/05/23 08:00 Pulse Ox 95 01/05/23 08:00 O2 Del Method Nasal Cannula 01/05/23 08:00 O2 Flow Rate 3.0 01/05/23 08:00 Oxygen Flow Rate 3 01/02/23 15:24 BMI result Body Mass Index 29.0 Gen: in no acute distress HEENT: sclera anicteric, moist mucus membranes Neck: supple, JVD present Lungs: clear to auscultation bilaterally Heart: irregularly irregular, no murmurs Abd: soft, non-tender, non-distended Ext: 2+ lower extremity edema bilaterally Skin: warm/well-perfused Neuro: alert and oriented x3, no focal findings Psych: appropriate affect Objective Data Active Medications Acetaminophen (Acetaminophen 325 Mg Tablet) 650 mg PO Q6H PRN PRN Reason: Pain, Mild (Pain Scale 1-3) Docusate Sodium (Docusate Sodium 100 Mg Capsule) 100 mg PO DAILY PRN PRN Reason: Constipation Empagliflozin (Empagliflozin 10 Mg Tablet) 10 mg PO DAILY [facility] Last Admin: 01/05/23 08:00 Dose: 10 mg Documented By: ARSH Finasteride (Finasteride 5 Mg Tablet) 5 mg PO DAILY [facility] Last Admin: 01/05/23 08:00 Dose: 5 mg Documented By: ARSH Furosemide (Furosemide 40 Mg/4 Ml Vial) 40 mg IVPUSH DAILY [facility]; Protocol Last Admin: 01/05/23 10:41 Dose: 40 mg Documented By: ARSH Metoprolol Succinate (Metoprolol Succinate Er 100 Mg Tab.Er.24h) 100 mg PO DAILY [facility]; Protocol Last Admin: 01/05/23 08:00 Dose: 100 mg Documented By: ARSH Ondansetron HCl (Ondansetron Hcl 4 Mg/2 Ml Vial) 4 mg IVPUSH Q8H PRN PRN Reason: Nausea and Vomiting Pharmacy Consult (Consult Rx Perform Med Rec) 1 each MISCELLANE ONCE PRN PRN Reason: Consult order Sodium Chloride (0.9 % Sodium Chloride Flush 3 Ml Syringe) 3 ml IVFLUSH QSHIFT [facility] Last Admin: 01/05/23 08:00 Dose: 3 ml Documented By: ARSH Warfarin Sodium (Warfarin Sodium 5 Mg Tablet) 5 mg PO SuSa@1800 [facility] Last Admin: 01/03/23 17:28 Dose: 5 mg Documented By: SILVIA Warfarin Sodium (Warfarin Sodium 10 Mg Tablet) 10 mg PO MoTuWeThFr@1800 [facility] Last Admin: 01/04/23 17:08 Dose: 10 mg Documented By: TONYA Labs 01/03/23 05:24 01/05/23 05:23 Labs: Laboratory Results - last 24 hr 01/04/23 01/05/23 01/05/23 07:28 05:23 05:23 PT 30.6 H INR 2.6 H Anion Gap 13 Estim Creat Clear Calc 58.6 Estimated GFR > 60 Random Glucose 87 77 Calcium 8.6 D Magnesium 2.3 B-Natriuretic Peptide Procalcitonin 0.04 01/05/23 05:23 PT INR Anion Gap Estim Creat Clear Calc Estimated GFR Random Glucose Calcium Magnesium B-Natriuretic Peptide 1609 H Procalcitonin Microbiology Microbiology Results: Microbiology 01/02/23 16:12 Blood Culture - Preliminary Blood - Venous No growth after 48 hours. 01/02/23 16:12 Blood Culture - Preliminary Blood - Venous No growth after 48 hours. Assessment and Plan (1) CHF exacerbation: Status: Acute (2) Persistent atrial fibrillation: Status: Acute Plan d#4 87yo M with HTN, HFpEF, persistent AF, BPH admitted for acute hypoxia due to CHF exacerbation # acute hypoxic resp failure - qualifies for home O2 at this point 4L with ambulation, 2L at rest # acute/chronic HFpEF - TTE 11/06/2223 grade 3 diastolic dysfunction, reduced RVEF - continue IV diuresis with furosemide; negative 2L thus far - added empagliflozin per Cardiology - continue metoprolol # JAMIE - improved with diuresis, likely had some degree of cardiorenal syndrome # HTN - continue metorpolol, d/c amlodipine # persistent AF - continue metoprolol for rate control - continue warfarin for anticoagulation; monitor INR daily [2.6 today] # BPH - continue finasteride # VTE ppx: warfarin # dispo: eventual home with [facility] In my clinical judgment, the patient requires continued inpatient hospitalizatio n for the following reasons: IV diuresis, hypoxia Time Spent With Patient Time: Total time managing care of this patient today __35__ minutes. Quality Stroke Does the patient have a stroke diagnosis?: No VTE Prior VTE?: No VTE Risk Level:: Medical - moderate - high VTE Device Contraindication: Treatment Not Indicated VTE Drug Contraindication: N/A - Med Ordered
--- NOTE | 2023-01-05 11:40 | MHC.CM.PN ---
PLAN IS HOME WEDNESDAY (WEDNESDAY LATEST) WITH NEW [facility] SERVICES AND A REFERRAL TO [facility]. [facility] MADE AWARE VIA [facility] AND PHONE CALL TO [phone]
[2023-01-05 16:00] VITALS: BP 127/61; PULSE 74; RESP 20; TEMP 36.4; O2SAT 92
[2023-01-05] MEDS: Warfarin Sodium 10 MG TABLET PO (17:02)
--- NOTE | 2023-01-05 17:56 | PM.PNCARD ---
Subjective Subjective Date of Service: 01/05/23 Principal diagnosis: Acute congestive heart failure Interval history: Patient is feeling better, says his shortness of breath is improved his leg edema is improved. Diuresing. However intake and output chart is more suggestive of tepid response. BNP is improving. Renal function is improving. Review of Systems Constitutional: Reports no additional constitutional complaints Cardiovascular: Reports no additional cardiovascular complaints Respiratory: Reports no additional respiratory complaints Gastrointestinal: Reports no additional gastrointestinal complaints Physical Exam Vital Signs: Last Vital Signs Temp 97.5 F 01/05/23 16:00 Pulse 74 01/05/23 16:00 Resp 20 01/05/23 16:00 BP 127/61 01/05/23 16:00 Pulse Ox 92 01/05/23 16:00 O2 Del Method Room Air 01/05/23 16:00 O2 Flow Rate 3.0 01/05/23 08:00 Oxygen Flow Rate 3 01/02/23 15:24 BMI result Body Mass Index 29.0 GENERAL APPEARANCE: in no acute distress, pleasant. NECK: no carotid bruit, + jugular venous distention. SKIN: no suspicious lesions, warm and dry. HEART: no murmurs, irregular rate and rhythm. LUNGS: clear to auscultation bilaterally. ABDOMEN: soft, nontender. EXTREMITIES: ++ edema. PERIPHERAL PULSES: equal. NEUROLOGIC: No gross deficits, AAO X 3 Objective Labs and Meds 01/03/23 05:24 01/05/23 05:23 Lab results: Laboratory Results - last 24 hr 01/05/23 01/05/23 01/05/23 05:23 05:23 05:23 PT 30.6 H INR 2.6 H Sodium 143 Potassium 4.0 Chloride 108 Carbon Dioxide 26 Anion Gap 13 BUN 34 H Creatinine 0.98 Estim Creat Clear Calc 58.6 Estimated GFR > 60 Random Glucose 77 Calcium 8.6 D Magnesium 2.3 B-Natriuretic Peptide 1609 H Procalcitonin 0.04 Progress Note: A&P Assessment and plan (1) Acute on chronic diastolic (congestive) heart failure: Status: Acute Assessment and Plan: Acute decompensated congestive heart failure, slowly improving. Continue diuresis. Has done well with addition of Jardiance. Will continue monitor renal function and BNP. Replace electrolytes as needed. Continue strict intake and output chart. Heart failure management discussed in details. Out of bed to chair and ambulate as tolerated. Continue aggressive blood pressure control. Continue current rate control for atrial fibrillation. (2) Persistent atrial fibrillation: Status: Acute Assessment and Plan: Atrial fibrillation rate control at this point time. Continue the same. Continue full oral anticoagulation, currently on warfarin therapy. Maintain target INR between 2 and 3. Will continue to follow with you Time Spent With Patient Time: Total time managing care of this patient today ____ minutes. Progress Note: Quality Stroke Does the patient have a stroke diagnosis?: No Procedures Date of Service Date of Service: 01/05/23
[2023-01-05 19:45] VITALS: BP 124/60; PULSE 70; RESP 24; TEMP 36.9; O2SAT 95
[2023-01-06] MEDS: diphenhydrAMINE HCL 50 MG/ML VIAL 25 MG IVPUSH (01:09)
[2023-01-06 03:28] VITALS: BP 132/64; PULSE 74; RESP 16; TEMP 36.3; O2SAT 96
[2023-01-06 06:28] LABS: INTERNATIONAL NORM RATIO 2.8 (0.9-1.1); Prothrombin Time 34.1 SEC (10.0-13.1)
[2023-01-06 06:43] LABS: B Type Natriuretic Peptide 1412 pg/mL (<100)
[2023-01-06 06:59] LABS: Anion Gap 11 (12-20); Blood Urea Nitrogen 31 mg/dL (9-16); Calcium 8.5 mg/dL (8.4-10.2); Carbon Dioxide 30 mmol/L (22-29); Chloride 107 mmol/L (96-108); Creatinine Clr Calc Pharmacy 58.6; Estimated Glomerular Filt Rate > 60; Glucose Random 77 mg/dL (60-115); Magnesium 2.2 mg/dL (1.6-2.6); Potassium 3.8 mmol/L (3.3-5.1); Sodium 144 mmol/L (135-145)
[2023-01-06] MEDS: Metoprolol Succinate ER 100 MG TAB.ER.24H PO (07:58)
[2023-01-06] MEDS: Finasteride 5 MG TABLET PO (07:58)
[2023-01-06] MEDS: Empagliflozin 10 MG TABLET PO (07:59)
[2023-01-06 08:00] VITALS: BP 130/90; PULSE 75; RESP 17; TEMP 36.4; O2SAT 97
[2023-01-06] MEDS: 0.9 % Sodium Chloride Flush 3 ML SYRINGE IVFLUSH ×3 (08:05→23:39)
[2023-01-06] MEDS: Furosemide 40 MG/4 ML VIAL IVPUSH (08:07)
[2023-01-06 08:12] VITALS: BMI 29.7
--- NOTE | 2023-01-06 09:57 | P.PNIM_ITS ---
Subjective Subjective Date of Service: 01/06/23 Interval History: Breathing and edema slowly improving no chest pain Review of Systems Review of Systems: Yes all other systems are reviewed and are negative Physical Exam Vital Signs: Vital Signs: Last Vital Signs Temp 97.5 F 01/06/23 08:00 Pulse 75 01/06/23 08:00 Resp 17 01/06/23 08:00 BP 130/90 H 01/06/23 08:00 Pulse Ox 97 01/06/23 08:00 O2 Del Method Nasal Cannula 01/06/23 08:00 O2 Flow Rate 3.0 01/06/23 08:00 Oxygen Flow Rate 3 01/02/23 15:24 BMI result Body Mass Index 29.7 Gen: in no acute distress HEENT: sclera anicteric, moist mucus membranes Neck: supple, JVD present Lungs: clear to auscultation bilaterally Heart: irregularly irregular, no murmurs Abd: soft, non-tender, non-distended Ext: 1+ lower extremity edema bilaterally Skin: warm/well-perfused Neuro: alert and oriented x3, no focal findings Psych: appropriate affect Objective Data Active Medications Acetaminophen (Acetaminophen 325 Mg Tablet) 650 mg PO Q6H PRN PRN Reason: Pain, Mild (Pain Scale 1-3) Docusate Sodium (Docusate Sodium 100 Mg Capsule) 100 mg PO DAILY PRN PRN Reason: Constipation Empagliflozin (Empagliflozin 10 Mg Tablet) 10 mg PO DAILY [facility] Last Admin: 01/06/23 07:59 Dose: 10 mg Documented By: AIXA Finasteride (Finasteride 5 Mg Tablet) 5 mg PO DAILY [facility] Last Admin: 01/06/23 07:58 Dose: 5 mg Documented By: AIXA Furosemide (Furosemide 40 Mg/4 Ml Vial) 40 mg IVPUSH DAILY [facility]; Protocol Last Admin: 01/06/23 08:07 Dose: 40 mg Documented By: AIXA Metoprolol Succinate (Metoprolol Succinate Er 100 Mg Tab.Er.24h) 100 mg PO DAILY [facility]; Protocol Last Admin: 01/06/23 07:58 Dose: 100 mg Documented By: AIXA Ondansetron HCl (Ondansetron Hcl 4 Mg/2 Ml Vial) 4 mg IVPUSH Q8H PRN PRN Reason: Nausea and Vomiting Pharmacy Consult (Consult Rx Perform Med Rec) 1 each MISCELLANE ONCE PRN PRN Reason: Consult order Sodium Chloride (0.9 % Sodium Chloride Flush 3 Ml Syringe) 3 ml IVFLUSH QSHIFT [facility] Last Admin: 01/06/23 08:05 Dose: 3 ml Documented By: AIXA Warfarin Sodium (Warfarin Sodium 5 Mg Tablet) 5 mg PO SuSa@1800 [facility] Last Admin: 01/03/23 17:28 Dose: 5 mg Documented By: SILVIA Warfarin Sodium (Warfarin Sodium 10 Mg Tablet) 10 mg PO MoTuWeThFr@1800 [facility] Last Admin: 01/05/23 17:02 Dose: 10 mg Documented By: ARSH Labs 01/03/23 05:24 01/06/23 05:26 Labs: Laboratory Results - last 24 hr 01/06/23 01/06/23 01/06/23 05:26 05:26 05:26 PT 34.1 H INR 2.8 H Anion Gap 11 L Estim Creat Clear Calc 58.6 Estimated GFR > 60 Random Glucose 77 Calcium 8.5 Magnesium 2.2 B-Natriuretic Peptide 1412 H Assessment and Plan (1) CHF exacerbation: Status: Acute (2) Persistent atrial fibrillation: Status: Acute Plan d#5 87yo M with HTN, HFpEF, persistent AF, BPH admitted for acute hypoxia due to CHF exacerbation # acute hypoxic resp failure - qualifies for home O2 at this point 4L with ambulation, 2L at rest # acute/chronic HFpEF - TTE 11/06/2223 grade 3 diastolic dysfunction, reduced RVEF - continue IV diuresis with furosemide; negative 3.1L thus far - added empagliflozin per Cardiology - continue metoprolol # JAMIE - improved with diuresis, likely had some degree of cardiorenal syndrome # HTN - continue metorpolol, d/c amlodipine # persistent AF - continue metoprolol for rate control - continue warfarin for anticoagulation; monitor INR daily [2.8 today] # BPH - continue finasteride # VTE ppx: warfarin # dispo: eventual home with [facility] In my clinical judgment, the patient requires continued inpatient hospitalization for the following reasons: IV diuresis, hypoxia Time Spent With Patient Time: Total time managing care of this patient today __35__ minutes. Quality Stroke Does the patient have a stroke diagnosis?: No VTE Prior VTE?: No VTE Risk Level:: Medical - moderate - high VTE Device Contraindication: Treatment Not Indicated VTE Drug Contraindication: N/A - Med Ordered
--- NOTE | 2023-01-06 12:31 | PM.PNCARD ---
Subjective Subjective Date of Service: 01/06/23 Principal diagnosis: Acute congestive heart failure Interval history: Patient responding to diuretic therapy well. Renal function improved and BUN has improved. Clinically feeling better. Blood pressure is stable. Heart rate is controlled. Review of Systems Review of Systems Yes all other systems are reviewed and are negative Physical Exam Vital Signs: Last Vital Signs Temp 97.5 F 01/06/23 08:00 Pulse 75 01/06/23 08:00 Resp 17 01/06/23 08:00 BP 130/90 H 01/06/23 08:00 Pulse Ox 97 01/06/23 08:00 O2 Del Method Nasal Cannula 01/06/23 08:00 O2 Flow Rate 3.0 01/06/23 08:00 Oxygen Flow Rate 3 01/02/23 15:24 BMI result Body Mass Index 29.7 GENERAL APPEARANCE: in no acute distress, pleasant. NECK: no carotid bruit, + jugular venous distention. SKIN: no suspicious lesions, warm and dry. HEART: no murmurs, irregular rate and rhythm. LUNGS: clear to auscultation bilaterally. ABDOMEN: soft, nontender. EXTREMITIES: ++ edema. PERIPHERAL PULSES: equal. NEUROLOGIC: No gross deficits, AAO X 3 Objective Labs and Meds 01/03/23 05:24 01/06/23 05:26 Lab results: Laboratory Results - last 24 hr 01/06/23 01/06/23 01/06/23 05:26 05:26 05:26 PT 34.1 H INR 2.8 H Sodium 144 Potassium 3.8 Chloride 107 Carbon Dioxide 30 H Anion Gap 11 L BUN 31 H Creatinine 0.98 Estim Creat Clear Calc 58.6 Estimated GFR > 60 Random Glucose 77 Calcium 8.5 Magnesium 2.2 B-Natriuretic Peptide 1412 H Progress Note: A&P Assessment and plan (1) Acute on chronic diastolic (congestive) heart failure: Status: Acute Assessment and Plan: Patient improving gradually. Continue diuresis with IV Lasix. Continue Jardiance. Continue strict intake and output chart. Once BNP is less than 50% admission BNP can potentially discharge. Hopefully tomorrow. Continue blood pressure control. Continue current rate control. Will continue to follow with you (2) Persistent atrial fibrillation: Status: Acute Assessment and Plan: AFib rate controlled. Continue current rate control strategy. Continue full oral anticoagulation, currently on warfarin. Maintain target INR between 2 and 3. Will follow up with you Time Spent With Patient Time: Total time managing care of this patient today ____ minutes. Progress Note: Quality Stroke Does the patient have a stroke diagnosis?: No Procedures Date of Service Date of Service: 01/06/23
--- NOTE | 2023-01-06 14:01 | MHC.CM.PN ---
Addendum entered by Kathleen Arreaga RN 01/06/23 16:03: [facility]'S NUMBER IS [phone] Addendum entered by Kathleen Arreaga RN 01/06/23 14:13: [facility] IS OFFERING [facility], HOME P.T., AND HOME HEALTH AID SERVICES. [facility] MADE AWARE IN [facility]. Addendum entered by Kathleen Arreaga RN 01/06/23 14:10: [facility]BLE TO OFFER SERVICES FOR 3-4 DAYS FOLLOWING DC. THIS IS NOT ACCEPTABLE PER MEDICARE GUIDELINES. [facility] REQUEST SENT TO REQUEST SERVICES. CASE MANAGEMENT TO UPDATE [facility] WITH ANY RESULTS Original Note: PLAN IS HOME SUNDAY 01/07 WITH NEW HOME OXYGEN [facility] MADE AWARE VIA [facility]
[2023-01-06 15:27] VITALS: BP 155/67; PULSE 73; RESP 17; TEMP 36.6; O2SAT 97
[2023-01-06] MEDS: Warfarin Sodium 10 MG TABLET PO (19:07)
[2023-01-06 20:00] VITALS: BP 140/70; PULSE 84; RESP 20; TEMP 36.4; O2SAT 95
[2023-01-07 03:31] VITALS: BP 130/68; PULSE 72; RESP 20; TEMP 36.7; O2SAT 99
[2023-01-07 06:53] LABS: Prothrombin Time 35.9 SEC (10.0-13.1)
[2023-01-07 07:02] LABS: Anion Gap 10 (12-20); Blood Urea Nitrogen 26 mg/dL (9-16); Calcium 8.9 mg/dL (8.4-10.2); Carbon Dioxide 34 mmol/L (22-29); Chloride 105 mmol/L (96-108); Creatinine Clr Calc Pharmacy 61.7; Estimated Glomerular Filt Rate > 60; Glucose Random 79 mg/dL (60-115); Magnesium 2.1 mg/dL (1.6-2.6); Potassium 4.4 mmol/L (3.3-5.1); Sodium 145 mmol/L (135-145)
[2023-01-07 07:07] LABS: B Type Natriuretic Peptide 1233 pg/mL (<100)
[2023-01-07 07:33] VITALS: BP 128/62; PULSE 78; RESP 24; TEMP 36.6; O2SAT 95
[2023-01-07] MEDS: Furosemide 40 MG/4 ML VIAL IVPUSH (07:41)
[2023-01-07] MEDS: Metoprolol Succinate ER 100 MG TAB.ER.24H PO (07:41)
[2023-01-07] MEDS: 0.9 % Sodium Chloride Flush 3 ML SYRINGE IVFLUSH ×3 (07:42→22:52)
[2023-01-07] MEDS: Empagliflozin 10 MG TABLET PO (07:42)
[2023-01-07] MEDS: Finasteride 5 MG TABLET PO (07:42)
[2023-01-07 09:04] VITALS: PULSE 126; PULSE 82; PULSE 88; O2SAT 85; O2SAT 86; O2SAT 90
--- NOTE | 2023-01-07 10:23 | PM.PNCARD ---
Subjective Subjective Date of Service: 01/07/23 Principal diagnosis: Acute congestive heart failure Interval history: patient says he has been feeling extremely well. He is walking with much improved symptoms. Leg edema is improved. Diuresed overall above 4 L. BNP is down trending. Review of Systems Review of Systems Yes all other systems are reviewed and are negative Physical Exam Vital Signs: Last Vital Signs Temp 98 F 01/07/23 07:33 Pulse 78 01/07/23 07:33 Resp 24 H 01/07/23 07:33 BP 128/62 01/07/23 07:33 Pulse Ox 95 01/07/23 07:33 O2 Del Method Nasal Cannula 01/07/23 07:33 O2 Flow Rate 2 01/07/23 07:33 Oxygen Flow Rate 3 01/02/23 15:24 BMI result Body Mass Index 29.7 GENERAL APPEARANCE: in no acute distress, pleasant. NECK: no carotid bruit, + jugular venous distention. SKIN: no suspicious lesions, warm and dry. HEART: no murmurs, irregular rate and rhythm. LUNGS: clear to auscultation bilaterally. ABDOMEN: soft, nontender. EXTREMITIES: ++ edema. PERIPHERAL PULSES: equal. NEUROLOGIC: No gross deficits, AAO X 3 Objective Labs and Meds 01/03/23 05:24 01/07/23 05:38 Lab results: Laboratory Results - last 24 hr 01/07/23 01/07/23 01/07/23 05:38 05:38 05:38 PT 35.9 H INR 3.0 H Sodium 145 Potassium 4.4 Chloride 105 Carbon Dioxide 34 H Anion Gap 10 L BUN 26 H Creatinine 0.94 Estim Creat Clear Calc 61.7 Estimated GFR > 60 Random Glucose 79 Calcium 8.9 Magnesium 2.1 B-Natriuretic Peptide 1233 H Progress Note: A&P Assessment and plan (1) Acute on chronic diastolic (congestive) heart failure: Status: Acute Assessment and Plan: Acute heart failure exacerbation gradually and steadily improving. BNP is down trending appropriately. Continue IV diuresis with strict intake and output chart for 1 more day. Continue Jardiance therapy. Importance of diuretic therapy as outpatient was discussed with him and taking additional diuretics to avoid hospitalization was discussed. Ambulate without restriction as much as tolerated. Plan for discharge tomorrow. (2) Persistent atrial fibrillation: Status: Acute Assessment and Plan: Persistent rate control atrial fibrillation. Continue rate control approach. Continue warfarin therapy for anticoagulation. Target INR between 2 and 3. Will continue to follow with you Time Spent With Patient Time: Total time managing care of this patient today ____ minutes. Progress Note: Quality Stroke Does the patient have a stroke diagnosis?: No Procedures Date of Service Date of Service: 01/07/23
--- NOTE | 2023-01-07 10:59 | HO.PM.IMPN ---
Subjective Subjective Date of Service: 01/07/23 Interval History: dyspnea continues to improve as does edema no chest pain Review of Systems Review of Systems: Yes all other systems are reviewed and are negative Physical Exam Vital Signs: Vital Signs: Last Vital Signs Temp 98 F 01/07/23 07:33 Pulse 78 01/07/23 07:33 Resp 24 H 01/07/23 07:33 BP 128/62 01/07/23 07:33 Pulse Ox 95 01/07/23 07:33 O2 Del Method Nasal Cannula 01/07/23 07:33 O2 Flow Rate 2 01/07/23 07:33 Oxygen Flow Rate 3 01/02/23 15:24 BMI result Body Mass Index 29.7 Gen: in no acute distress HEENT: sclera anicteric, moist mucus membranes Neck: supple Lungs: clear to auscultation bilaterally Heart: irregularly irregular, no murmurs Abd: soft, non-tender, non-distended Ext: 1+ lower extremity edema bilaterally Skin: warm/well-perfused Neuro: alert and oriented x3, no focal findings Psych: appropriate affect Objective Data Active Medications Acetaminophen (Acetaminophen 325 Mg Tablet) 650 mg PO Q6H PRN PRN Reason: Pain, Mild (Pain Scale 1-3) Docusate Sodium (Docusate Sodium 100 Mg Capsule) 100 mg PO DAILY PRN PRN Reason: Constipation Empagliflozin (Empagliflozin 10 Mg Tablet) 10 mg PO DAILY [facility] Last Admin: 01/07/23 07:42 Dose: 10 mg Documented By: ARSH Finasteride (Finasteride 5 Mg Tablet) 5 mg PO DAILY [facility] Last Admin: 01/07/23 07:42 Dose: 5 mg Documented By: ARSH Furosemide (Furosemide 40 Mg/4 Ml Vial) 40 mg IVPUSH DAILY [facility]; Protocol Last Admin: 01/07/23 07:41 Dose: 40 mg Documented By: ARSH Metoprolol Succinate (Metoprolol Succinate Er 100 Mg Tab.Er.24h) 100 mg PO DAILY [facility]; Protocol Last Admin: 01/07/23 07:41 Dose: 100 mg Documented By: ARSH Ondansetron HCl (Ondansetron Hcl 4 Mg/2 Ml Vial) 4 mg IVPUSH Q8H PRN PRN Reason: Nausea and Vomiting Pharmacy Consult (Consult Rx Perform Med Rec) 1 each MISCELLANE ONCE PRN PRN Reason: Consult order Sodium Chloride (0.9 % Sodium Chloride Flush 3 Ml Syringe) 3 ml IVFLUSH QSHIFT [facility] Last Admin: 01/07/23 07:42 Dose: 3 ml Documented By: ARSH Warfarin Sodium (Warfarin Sodium 5 Mg Tablet) 5 mg PO [email or web address] [facility] Last Admin: 01/03/23 17:28 Dose: 5 mg Documented By: SILVIA Warfarin Sodium (Warfarin Sodium 10 Mg Tablet) 10 mg PO [email or web address] [facility] Last Admin: 01/06/23 19:07 Dose: 10 mg Documented By: WALE Labs 01/03/23 05:24 01/07/23 05:38 Labs: Laboratory Results - last 24 hr 01/07/23 01/07/23 01/07/23 05:38 05:38 05:38 PT 35.9 H INR 3.0 H Anion Gap 10 L Estim Creat Clear Calc 61.7 Estimated GFR > 60 Random Glucose 79 Calcium 8.9 Magnesium 2.1 B-Natriuretic Peptide 1233 H Assessment and Plan (1) CHF exacerbation: Status: Acute (2) Persistent atrial fibrillation: Status: Acute Plan d#6 87yo M with HTN, HFpEF, persistent AF, BPH admitted for acute hypoxia due to CHF exacerbation # acute hypoxic resp failure - qualifies for home O2 at this point 4L with ambulation, 2L at rest- requalify in AM # acute/chronic HFpEF - TTE 11/06/2223 grade 3 diastolic dysfunction, reduced RVEF - continue IV diuresis with furosemide 1 more day; negative 3.8L thus far - added empagliflozin per Cardiology, to continue upon d/c - continue metoprolol # JAMIE - improved with diuresis, likely had some degree of cardiorenal syndrome # HTN - continue metorpolol, d/c amlodipine # persistent AF - continue metoprolol for rate control - continue warfarin for anticoagulation; monitor INR daily [3 today] # BPH - continue finasteride # VTE ppx: warfarin # dispo: eventual home with VNA, anticipate tomorrow if continues to improve In my clinical judgment, the patient requires continued inpatient hospitalization for the following reasons: IV diuresis, hypoxia Time Spent With Patient Time: Total time managing care of this patient today _35___ minutes. Quality Stroke Does the patient have a stroke diagnosis?: No VTE Prior VTE?: No VTE Risk Level:: Medical - moderate - high VTE Device Contraindication: Treatment Not Indicated VTE Drug Contraindication: N/A - Med Ordered
[2023-01-07 15:35] VITALS: BP 161/75; PULSE 90; RESP 24; TEMP 36.8; O2SAT 97
[2023-01-07] MEDS: Warfarin Sodium 10 MG TABLET PO (17:30)
[2023-01-07 19:55] VITALS: BP 129/60; PULSE 73; RESP 16; TEMP 36.4; O2SAT 97
[2023-01-08 04:00] VITALS: BP 157/69; PULSE 83; RESP 17; TEMP 36.9; O2SAT 95
[2023-01-08 07:09] LABS: INTERNATIONAL NORM RATIO 3.7 (0.9-1.1); Prothrombin Time 44.8 SEC (10.0-13.1)
[2023-01-08 07:25] LABS: Anion Gap 13 (12-20); Blood Urea Nitrogen 20 mg/dL (9-16); Calcium 8.9 mg/dL (8.4-10.2); Carbon Dioxide 33 mmol/L (22-29); Chloride 103 mmol/L (96-108); Creatinine Clr Calc Pharmacy 68.3; Estimated Glomerular Filt Rate > 60; Glucose Random 73 mg/dL (60-115); Magnesium 2.1 mg/dL (1.6-2.6); Potassium 3.8 mmol/L (3.3-5.1); Sodium 145 mmol/L (135-145)
[2023-01-08 07:32] LABS: B Type Natriuretic Peptide 1166 pg/mL (<100)
[2023-01-08 07:43] VITALS: BP 122/65; PULSE 78; RESP 22; TEMP 36.2; O2SAT 96
--- NOTE | 2023-01-08 08:54 | P.DS_ITS ---
DS: Providers Provider Date of Service: 01/08/23 Date of admission: 01/02/23 18:14 Primary care physician: Marcos Maurer MD Consults: 01/02/23 17:58 Consult to Cardiology Routine Consulting Provider: Raj Mendez Reason for consultation: chf Has provider been notified: No DS: Diagnosis Discharge Diagnosis (1) CHF exacerbation: Status: Resolved (2) Persistent atrial fibrillation: Status: Inactive DS: Summary Hospital Course Hospital Course: Chief Complaint: sob 87-year-old male with a PMH significant for?HTN, CHF with preserved EF, persistent AFib, and BPH presented to the ED earlier today for evaluation of dyspnea on exertion that began yesterday with episode of PND overnight and then worsening FERRARA this morning. Denies orthopnea or worsening BLE. States he has chronic intermittent edema BLE. He does endorse a cough in the morning to clear what sounds to be PND but denies ongoing cough, fevers, chills. No sick cont acts. On arrival patient hypoxic to 88% placed on 3L supplemental O2. BP soft at 106/85.? Hematology studies unremarkable.? Creatinine 1.38, baseline 0.95.? BUN 54.? Electrolyte levels normal.? Troponin 7.8.? BNP 1825.? Negative for influenza, RSV, COVID-19.? CXR showing opacification at the right lung base suggestive pleural effusion but possibly underlying infiltrate versus atelectasis that is unchanged.? No acute findings.? EKG showing atrial fibrillation, rate 72 with old inferior infarct, no ST or ST depressions.? In the ED, 40 mg IV Lasix ordered.? Patient was recently admitted from 11/05- for acute on chronic diastolic heart failure exacerbation and was discharged to rehab with oral Lasix which he has been taking as prescribed.? During admission, he was followed by Cardiology with updated echocardiogram on 11/06 which showed normal LV systolic function with EF 55-60% and moderate LVH with restrictive filling pattern and severely dilated right ventricle with reduced systolic fun ction and severely dilated atria.? There is also moderately elevated right ventricular systolic pressures and significant? right atrial pressures. Hospital course #acute exacerbation of diastolic heart failure:: Patient with known diastolic heart failure and presented with SOB and found to be in acute exacerbation of heart failure as evident by clinical finding of SOB, hypoxia, edema, xray finding and elevated BNP. last Echo 11/06: normal LV systolic function with EF 55- 60% and moderate LVH with restrictive filling pattern and severely dilated right ventricle with reduced systolic function and severely dilated at He was initiaated on IV diuretic and has improved. Cardiology (Dr. Corok) has recommended adittion of Jardiance 10 mg daily. To continue use of Lasix 40 mg daily but may take additional 20 mg a day if increased leg edema and weight gain. #Acute hypoxemic respiratory failure -due to HF exacerbation and advanced pulmonoary HTN..He Remains hypoxic on room L albeit improved. Respiratory has assessed for home O2 and qualify for 2 L at rest and up to 4 L with activity. He will thus be discharged with home O2. #Acute kidney injury -likely cardiorenal, resp;arina after direutic therapy, Cr is within normal < 1 #Persistent atrial fibrillation- rate controlled -continue coumadin, follow INR ( goal of 2 to 3), 3.7 today, recommends holding for today, resume tomorrow -Continue metorpolol for rate control #HTN Stop amlodipine - likely contributing to BLE edema. Continue metoprolol #BPH -continue finasteride Dispo: Home with home O2, and Home Health Time Spent with Patient Time attestation: Total time managing care of this patient today ____ minutes. Discharge coordination time: Greater than 30 minutes Quality: Safe Use of Opioids Does Pt have an Active Cancer Diagnosis on the Problem List?: No Quality: Stroke Does the patient have a stroke diagnosis?: No Physical Exam Vital Signs: Vital Signs: Last Vital Signs Temp 97.2 F 01/08/23 07:43 Pulse 78 01/08/23 07:43 Resp 22 H 01/08/23 07:43 BP 122/65 01/08/23 07:43 Pulse Ox 96 01/08/23 07:43 O2 Del Method Nasal Cannula 01/08/23 07:43 O2 Flow Rate 2 01/08/23 07:43 Oxygen Flow Rate 3 01/02/23 15:24 BMI result Body Mass Index 29.7 DS: Data Data Completed and Pending Labs on day of discharge: Laboratory Results - last 24 hr 01/08/23 01/08/23 01/08/23 05:41 05:41 05:41 PT 44.8 H INR 3.7 H Sodium 145 Potassium 3.8 Chloride 103 Carbon Dioxide 33 H Anion Gap 13 BUN 20 H Creatinine 0.85 Estim Creat Clear Calc 68.3 Estimated GFR > 60 Random Glucose 73 Calcium 8.9 Magnesium 2.1 B-Natriuretic Peptide 1166 H Discharge Plan Discharge Anticipated Discharge Date/Time: 01/08/23 08:49 Patient Disposition: Home Health Service Discharge Diagnosis: acute exacerbation of diastolic CHF Referrals: [facility] [Outside] - 1 Week Marcos Maurer MD [Primary Care Provider] - 1 Week Discharge Medications: Continued warfarin [Jantoven] 5 mg tablet 5 mg PO SUSA furosemide 40 mg tablet 1 tab PO DAILY Qty: 30 0RF warfarin [Jantoven] 5 mg tablet 10 mg PO MOTUWETHFR metoprolol succinate 100 mg tablet extended release 24 hr 100 mg PO DAILY finasteride 5 mg tablet 5 mg PO DAILY chlorhexidine gluconate 0.12 % mouthwash 10 ml PO DAILY Discontinued amlodipine 10 mg tablet 1 tab PO DAILY Hold Instructions: Resume on 11/24/22. Discharge Orders: Discharge Order (Routine); Ordered 01/08/23 Ordered By: Angel Churchill Diet: Low salt diet Activity on Discharge: As tolerated Stand Alone Forms: Patient Portal Discharge page Care Plan Goals: full recovery from heart failure Health Concerns: Chronic heart failure Plan of Treatment: Take all medication including diuretic ( Lasix as recommended) Avoid salty food Weeigh yourself daily all at least every other day and write down your weight, if you gain more than 2 Ib in a day, call your doctor Jardiance to be considered when you see Dr. Crook in the office Stop taking Amlodipine Skip coumadin today, and tomorrow and resume your usual dose on Wednesday and follow up with coumadin clinic on Wednesday Assessment: as above Discharge Date/Time: 01/08/23 16:30
[2023-01-08 09:42] VITALS: BP 122/65; PULSE 78; O2SAT 96
--- NOTE | 2023-01-08 09:47 | P.F2F_ITS ---
Service Date Service Date: 01/08/23 Encounter Date of encounter: 01/08/23 Reasons for Services Signs and symptoms assessed: SOB due to heart failure Reason for half-way: monitoring of PT/INR, medication management and teach disease management Homebound: Leaving the home is medically contraindicated at this time without the asist of a device and/or another person due th the listed conditions above and below. Reason homebound: shortness of breath with minimal effort and weakness related to hospital stay Homebound supporting statement: Homebound due to chronic respriatory failure, shortness of with minimal effort and therefore Certification: Based on the above findings, I certify that this patient is confined to the home and needs intermittent half-way care, physical therapy and/or speech therapy, or continues to need occupational therapy. The patient is under my care, and I have initiated the establishment of the plan of care. The patient will be followed by a physician who will periodically review the plan of care. Time Spent With Patient Time: Total time managing care of this patient today ____ minutes.
--- NOTE | 2023-01-08 09:56 | PM.PNCARD ---
Subjective Subjective Date of Service: 01/08/23 Principal diagnosis: Acute congestive heart failure Interval history: Patient feeling a lot better. Ambulating. Currently still using oxygen for unclear reason. Denies shortness of breath. Leg edema is improved significantly. Cumulative negative balance of about 5 L Review of Systems Review of Systems Yes all other systems are reviewed and are negative Physical Exam Vital Signs: Last Vital Signs Temp 97.2 F 01/08/23 07:43 Pulse 78 01/08/23 09:42 Resp 22 H 01/08/23 07:43 BP 122/65 01/08/23 09:42 Pulse Ox 96 01/08/23 09:42 O2 Del Method Nasal Cannula 01/08/23 07:43 O2 Flow Rate 2 01/08/23 07:43 Oxygen Flow Rate 3 01/02/23 15:24 BMI result Body Mass Index 29.7 GENERAL APPEARANCE: in no acute distress, pleasant. NECK: no carotid bruit, + jugular venous distention. SKIN: no suspicious lesions, warm and dry. HEART: no murmurs, irregular rate and rhythm. LUNGS: clear to auscultation bilaterally. ABDOMEN: soft, nontender. EXTREMITIES: ++ edema. PERIPHERAL PULSES: equal. NEUROLOGIC: No gross deficits, AAO X 3 Objective Labs and Meds 01/03/23 05:24 01/08/23 05:41 Lab results: Laboratory Results - last 24 hr 01/08/23 01/08/23 01/08/23 05:41 05:41 05:41 PT 44.8 H INR 3.7 H Sodium 145 Potassium 3.8 Chloride 103 Carbon Dioxide 33 H Anion Gap 13 BUN 20 H Creatinine 0.85 Estim Creat Clear Calc 68.3 Estimated GFR > 60 Random Glucose 73 Calcium 8.9 Magnesium 2.1 B-Natriuretic Peptide 1166 H Imaging Radiologist's impression: Impressions Chest X-Ray 01/08/23 01:10 IMPRESSION: Small to moderate right pleural effusion, similar to slightly increased from prior, with adjacent basilar airspace opacity which may represent atelectasis or consolidation. Imaging follow-up recommended to assess for resolution. Progress Note: A&P Assessment and plan (1) Acute on chronic diastolic (congestive) heart failure: Status: Acute Assessment and Plan: decompensated heart failure preserved ejection fraction. Clinically doing much better now. Understands management of heart failure better. Continue Lasix 40 mg daily and Jardiance 10 mg daily. Additional diuretics at home was discussed. Avoidance of salt loading was discussed advised to call me with worsening symptoms. Follow up in the office in 2 weeks after blood work. May be a candidate for CardioMEMS device. (2) Persistent atrial fibrillation: Status: Acute Assessment and Plan: Atrial fibrillation with rate control. Continue current rate control. Continue full anticoagulation with warfarin. Target INR between 2 and 3. Will follow up in the clinic. Patient can be discharged home today. Time Spent With Patient Time: Total time managing care of this patient today ____ minutes. Progress Note: Quality Stroke Does the patient have a stroke diagnosis?: No Procedures Date of Service Date of Service: 01/08/23
[2023-01-08] MEDS: Empagliflozin 10 MG TABLET PO (10:06)
[2023-01-08] MEDS: Metoprolol Succinate ER 100 MG TAB.ER.24H PO (10:06)
[2023-01-08] MEDS: 0.9 % Sodium Chloride Flush 3 ML SYRINGE IVFLUSH (10:06)
[2023-01-08] MEDS: Finasteride 5 MG TABLET PO (10:06)
[2023-01-08] MEDS: Furosemide 40 MG/4 ML VIAL IVPUSH (10:06)
--- NOTE | 2023-01-08 10:45 | MHC.CM.PN ---
PATIENT IS DC HOME WITH [facility] AND HOME O2. PATIENT REPORTS HAVING TRANSPORT HOME. IMM 01/08 IN CHART
--- NOTE | 2023-01-08 16:00 | PC.RT ---
Pt discharged home with 2 full e- cylinders. Lisa aware. Pt and nephew shown cylinder operation. nephew able to demonstrate without issue.
== END 2023-01-08 16:30 | disposition home health service (06) | DRG 291 ==
LOC: HO.ED 17:09 → HO.EDOVER 18:23 → HO.S3 19:53
PROVIDERS: Family Medicine; Hospitalist; Admitting Provider Physician Assistant; Emergency Provider Emergency Medicine; PCP Internal Medicine; Visit Provider Internal Medicine
DX: I11.0 Hypertensive heart disease with heart failure (principal); I50.33 Acute on chronic diastolic (congestive) heart failure; J96.01 Acute respiratory failure with hypoxia; N17.9 Acute kidney failure, unspecified; I48.19 Other persistent atrial fibrillation; Z66 Do not resuscitate; N40.0 Benign prostatic hyperplasia without lower urinary tract symptoms; Z20.822 Contact with and (suspected) exposure to COVID-19; Z79.01 Long term (current) use of anticoagulants; Z79.899 Other long term (current) drug therapy
CPT/HCPCS: 0241U; 36415; 71045; 71046; 80048; 80076; 81001; 81003; 83605; 83690; 83735; 83880; 84145; 84484; 85025; 85610; 87040; 93005; 97116; 97162; 97530; 99285; J1200; J1940

== ENCOUNTER 2023-01-18 12:42 | Outpatient (REF) | payer MEDICARE, SELFPAY ==
[2023-01-18 14:13] LABS: INTERNATIONAL NORM RATIO 1.7 (0.9-1.1); Prothrombin Time 19.8 SEC (10.0-13.1)
== END 2023-01-18 12:43 | disposition home or self-care (01) ==
LOC: HO.10HDL 12:42
PROVIDERS: Visit Provider Internal Medicine
DX: I48.91 Unspecified atrial fibrillation (principal)
CPT/HCPCS: 36415; 85610

== ENCOUNTER 2023-02-04 11:39 | Outpatient (REF) | payer MEDICARE, SELFPAY ==
[2023-02-04 13:04] LABS: INTERNATIONAL NORM RATIO 1.3 (0.9-1.1); Prothrombin Time 15.4 SEC (10.0-13.1)
== END 2023-02-04 11:40 | disposition home or self-care (01) ==
LOC: HO.10HDL 11:39
PROVIDERS: Visit Provider Internal Medicine
DX: I48.91 Unspecified atrial fibrillation (principal)
CPT/HCPCS: 36415; 85610

== ENCOUNTER 2023-02-17 11:12 | Outpatient (REF) | payer MEDICARE, SELFPAY ==
[2023-02-17 13:33] LABS: INTERNATIONAL NORM RATIO 1.3 (0.9-1.1); Prothrombin Time 14.8 SEC (10.0-13.1)
== END 2023-02-17 11:13 | disposition home or self-care (01) ==
LOC: HO.10HDL 11:12
PROVIDERS: Visit Provider Internal Medicine
DX: I48.91 Unspecified atrial fibrillation (principal)
CPT/HCPCS: 36415; 85610

== ENCOUNTER 2023-03-08 12:37 | Outpatient (REF) | payer MEDICARE, SELFPAY | END 2023-03-08 12:38 | disposition home or self-care (01) | LOC: HO.10HDL 12:37 | PROVIDERS: Visit Provider Internal Medicine | DX: I48.91 Unspecified atrial fibrillation (principal); I50.9 Heart failure, unspecified; D64.9 Anemia, unspecified; Z79.01 Long term (current) use of anticoagulants | CPT/HCPCS: 36415; 80053; 85025; 85610 ==

== ENCOUNTER 2023-04-01 08:48 | Outpatient (REF) | payer MEDICARE, SELFPAY ==
[2023-04-01 10:58] LABS: INTERNATIONAL NORM RATIO 1.9 (0.9-1.1); Prothrombin Time 23.5 SEC (11.1-13.3)
== END 2023-04-01 08:49 | disposition home or self-care (01) ==
LOC: HO.10HDL 08:48
PROVIDERS: Visit Provider Internal Medicine
DX: I48.91 Unspecified atrial fibrillation (principal)
CPT/HCPCS: 36415; 85610

== ENCOUNTER 2023-05-29 16:12 | Inpatient (IN) | payer MEDICARE, SELFPAY ==
[2023-05-29] VITALS (8 sets, daily range): BP systolic 151–203; BP diastolic 63–99; PULSE 85–96; RESP 16–33; TEMP 36.4–37; O2SAT 95–99; BMI 24.5
--- NOTE | ~2023-05-29 | XR_ITS ---
EXAMINATION: XR chest 1V CLINICAL INFORMATION: Shortness of breath COMPARISON: Prior chest x-ray 01/08/2023 TECHNIQUE: XR chest 1V Tubes and lines: None Lungs and pleura: There is pulmonary vascular congestion, there is opacification at right lung base probably pleural effusion, cannot rule out underlying infiltrate and/or atelectasis. Blunting of left costophrenic angle small subpulmonic pleural effusion as well. Heart and mediastinum: Cardiac silhouette is enlarged exaggerated by AP technique.. Bones/soft tissue: Skeletal structures included are normal for patient's age. XR/XR chest 1V IMPRESSION: * Congestive heart failure. * Bilateral pleural effusions right more than left. * Opacification at right lung base probably pleural effusion, cannot rule out underlying infiltrate and/or atelectasis. * Cardiac silhouette is enlarged exaggerated by AP technique.
--- NOTE | 2023-05-29 16:19 | ED.GENADULT ---
HPI - General Adult General Chief complaint: General Medical Stated complaint: Referred by PCP, difficulty breathing/coumadin lvl Time Seen by Provider: 05/29/23 17:23 Source: patient Mode of arrival: ambulatory Limitations: no limitations History of Present Illness HPI narrative: 88-year-old male on AC therapy for atrial fibrillation taking Coumadin alternate 5 and 10 mg every day, CHF with preserved ejection fracture came in for the past 3 days been having right nostril bleed, of that easily stop by applying pressure on the nose, woke up this morning feeling congested in his chest patient was coughing a bloody sputum this morning that is resolved now, patient SOB or chest pain or PND currently, patient normally use 3 L of oxygen at home. Spoke with his PCP who recommended to come to the ER to check on his INR level. Related Data Home Medications Medication Instructions Recorded Confirmed metoprolol succinate 100 mg 100 mg PO DAILY 08/11/22 01/02/23 tablet,extended release 24 hr warfarin 5 mg tablet (Jantoven) 10 mg PO MOTUWETHFR 08/11/22 01/02/23 warfarin 5 mg tablet (Jantoven) 5 mg PO SUSA 11/05/22 01/02/23 chlorhexidine gluconate 0.12 % 10 ml PO DAILY 01/02/23 01/02/23 mouthwash finasteride 5 mg tablet 5 mg PO DAILY 01/02/23 01/02/23 Previous Rx's Medication Instructions Recorded furosemide 40 mg tablet 1 tab PO DAILY #30 tabs 11/11/22 Allergies Allergy/AdvReac Type Severity Reaction Status Date / Time No Known Allergies Allergy Mild NOT Verified 05/29/23 16:19 APPLICABLE Review of Systems Review of Systems: all other systems are reviewed and are negative Constitutional: Reports as per HPI and Reports no additional constitutional complaints Eyes: Reports as per HPI and Reports no additional eye complaints Reports system reviewed and no additional complaints, except as documented Cardiovascular: Reports as per HPI and Reports no additional cardiovascular complaints Respiratory: Reports as per HPI and Reports no additional respiratory complaints Gastrointestinal: Reports as per HPI and Reports no additional gastrointestinal complaints Genitourinary: Reports no additional female genitourinary complaints Musculoskeletal: Reports no additional musculoskeletal complaints Skin/Breast: Reports system reviewed and no additional complaints, except as docu Psychiatric: Reports no additional psychiatric complaints Endocrine: Reports no additional endocrine complaints Hematologic/Lymphatic: Reports no additional hematologic/lymphatic complaints Allergic/Immunologic: Reports no additional allergic/immunologic complaints Reports system reviewed and no additional complaints, except as documented and Reports Abnormal speech present [facility] Past Medical History Medical History CHF (congestive heart failure) Hypertensive emergency Persistent atrial fibrillation Acute on chronic diastolic (congestive) heart failure Pleural effusion Congestive heart failure Herpes zoster, ocular Osteoarthritis BPH (benign prostatic hyperplasia) CHF (congestive heart failure) Pneumonitis Pleural effusion Paroxysmal atrial fibrillation (HFpEF) heart failure with preserved ejection fraction HTN (hypertension) Surgical History Status post colonoscopy with polypectomy History of total right hip arthroplasty H/O cataract extraction History of cardioversion Family History Family History Father No problems noted. Mother No problems noted. Social History Social History Household Members: None Housing: House Do you presently have visiting nurse or other home services: No Alcohol intake: never Patient Tobacco Use Status: Never used Tobacco Tobacco use type: Cigarette Years Smoked: 18 years e-Cigarette/Vaping Use: Never Used Second Hand Smoke Exposure: No Advance Directives: Yes Advance Directives on File: Yes Advance Directives Date on File: 04/16/21 service: No (PT DENIES BEING A ) Current occupational status: retired Physical Exam ED Vital Signs: Vital Signs - 24 hr 05/29/23 16:19 05/29/23 17:08 05/29/23 17:09 Temperature 97.6 F 98.3 F Pulse Rate 96 87 Respiratory Rate 18 24 H 20 Blood Pressure 203/99 H 154/83 H Pulse Oximetry 99 95 Oxygen Delivery Method Nasal Cannula Nasal Cannula Oxygen Flow Rate 3 05/29/23 17:50 05/29/23 18:08 05/29/23 18:20 Temperature 98.6 F 98.4 F Pulse Rate 94 85 86 Respiratory Rate 22 H 19 16 Blood Pressure 151/80 H 177/89 H Pulse Oximetry 96 99 98 Oxygen Delivery Method Nasal Cannula Room Air Room Air Oxygen Flow Rate 3 BMI result Body Mass Index 24.5 Vital signs have been reviewed and appear to be correct. Blood pressure elevated. Heart rate normal. Respiratory rate normal. Temperature normal. Oxygen saturation normal. Appearance: Alert. Oriented X3. No acute distress. Head: Normal external exam. Normocephalic. Atraumatic. No Lange signs noted. No raccoon eyes noted Eyes: PERRLA. EOMI. Conjunctiva and sclera normal. Eyelids normal. ENT: TM's Normal. Pharynx normal. Uvula midline. Moist mucous membranes. No trismus noted. No drooling noted. No muffled voice noted. Neck: Normal inspection. Neck supple. FROM. No adenopathy. Thyroid Normal. No meningeal signs. No neck mass noted. CVS: Normal heart rate and rhythm. Heart sound normal. No murmurs noted. Pulses normal throughout. Respiratory: No respiratory distress. Painless inspiration. Breath sounds normal. No wheezes/rales/rhonchi noted. Chest nontender. No accessory muscle usage noted or decreased air movement noted. Abdomen: Soft and nontender. Bowel sounds normal in all 4 quadrants. No distention noted. No organomegaly noted. No visible injury noted. Back: No CVA tenderness. Full range of motion noted. Skin: Skin warm and dry. Normal skin color. Normal skin turgor. No rashes/lesions/lacerations noted. Extremities: No lower extremity edema. Extremities exhibit normal range of motion. Extremities nontender. Neuro: Oriented X 3. Cranial nerve exam: II-XII are grossly intact No motor deficit. No sensory deficit. Reflexes normal. Course Course Course Narrative: This is an RME: Additional HPI, ROS, PE not included below will be deferred to primary provider. 87-year-old male with a PMH significant for?HTN, CHF with preserved EF on 3L of o2, persistent AFib on coumadin, and BPH presenting to the ER, accompanied by his family, with complaints of shortness of breath and hemoptysis. Pt states that he has had difficulty breathing through his nose. No epistaxis noted in triage, however mouth full of blood. He states that he was referred to PCP to check coumadin level. He alternates between 5-10mg of Coumadin a day. Left irregular pupil noted, pt states this is chronic. BP at 203/99, O2 99%. Plan: Labs ordered. pt brought back to main ER. Medical Decision Making Medical Decision Making [facility] Narrative: 720 pm Patient seen and re-evaluated patient with history of AFib on Coumadin used to be on 5 mg and 10 mg on alternate days came in for minor epistaxis also noticed dark stools for last 2 days patient missed his Coumadin on the weekend so for the initial 4 days he took 10 mg daily instead of alternate 5 /10 last 2 days he took 5 mg no abdominal pain or dizziness no palpitation at mild chest discomfort 2 days ago. Rectal junction was done which showed bright red blood on the finger. Patient's troponin is slightly elevated will repeat another troponin to see even delta change patient denies any chest pain acute ischemic changes in the EKG plan to admit patient for observation for serial H&H if further drop in H&H may need reversal of Coumadin Lab Data MDM Lab Attestation statement: I reviewed the patient's lab results. 05/29/23 17:23 05/29/23 17:23 Labs: Lab Results 05/29/23 Range/Units 17:23 WBC 7.8 (4.8-10.8) X10*3/uL RBC 3.30 L D (4.60-5.80) X10*6/uL Hgb 10.3 L D (14.0-18.0) g/dl Hct 33.4 L (42.0-52.0) % MCV 101.2 H (80.0-98.0) fL MCH 31.2 (27.0-33.0) pg MCHC 30.8 L (31.0-36.0) g/dl RDW 14.7 (11.0-16.0) % Plt Count 132 L (160-400) X10*3/uL MPV 10.7 (9.4-12.4) fL Immature Gran % (Auto) 0.4 (0.0-0.4) % Neut % (Auto) 81.8 H (45-73) % Lymph % (Auto) 7.3 L (20-40) % [place] % (Auto) 9.7 (2-11) % Eos % (Auto) 0.5 (0-4) % Baso % (Auto) 0.3 (0-2) % Lymph # (Auto) 0.6 L (1.2-4.9) X10*3/uL [place] # (Auto) 0.8 (0.1-1.2) X10*3/uL Eos # (Auto) 0.0 (0.0-0.4) X10*3/uL Baso # (Auto) 0.0 (0.0-0.2) X10*3/uL Abs Immat Gran (auto) 0.03 (0.00-0.03) X10*3/uL Absolute Neuts (auto) 6.4 (2.0-8.3) x10*3/uL Absolute Nucleated RBC 0.000 (0.0-0.012) X10*3/uL Nucleated RBC % (auto) 0.0 (0.0-0.2) /100WBC PT 91.9 H D (11.1-13.3) SEC INR 7.5 H* D (0.9-1.1) APTT 78.0 H* D (26.0-36.4) SEC Sodium 146 H (135-145) mmol/L Potassium 4.9 (3.3-5.1) mmol/L Chloride 105 (96-108) mmol/L Carbon Dioxide 33 H (22-29) mmol/L Anion Gap 13 (12-20) BUN 31 H (9-16) mg/dL Creatinine 0.92 (0.5-1.4) mg/dL Estim Creat Clear Calc 55.5 Estimated GFR > 60 Random Glucose 97 (60-115) mg/dL Calcium 9.1 D (8.4-10.2) mg/dL Total Bilirubin 1.2 H (0.0-1.0) mg/dL Direct Bilirubin 0.5 (0.0-0.5) mg/dL AST 20 (5-37) U/L ALT 9 (0-40) U/L Alkaline Phosphatase 64 (39-117) U/L Troponin I High Sens 480.4 H* D (<3.5-35.0) ng/L B-Natriuretic Peptide 1394 H (<100) pg/mL Total Protein 6.7 (6.5-8.0) g/dL Albumin 3.8 (3.5-5.0) g/dL Independent Interpretation I performed an independent interpretation of an: EKG Interpretation: Atrial fibrillation heart rate 81 beats per minute right bundle-branch block no acute ST no acute ischemia Discharge Plan Discharge Clinical Impression: Acute dyspnea Patient Disposition: Still a Patient Prescriptions: No Action warfarin [Jantoven] 5 mg tablet 5 mg PO SUSA furosemide 40 mg tablet 1 tab PO DAILY Qty: 30 0RF warfarin [Jantoven] 5 mg tablet 10 mg PO MOTUWETHFR metoprolol succinate 100 mg tablet extended release 24 hr 100 mg PO DAILY finasteride 5 mg tablet 5 mg PO DAILY chlorhexidine gluconate 0.12 % mouthwash 10 ml PO DAILY
--- NOTE | 2023-05-29 16:34 | ECG_ITS ---
Test Reason : SOB Blood Pressure : / mmHG Vent. Rate : 081 BPM Atrial Rate : 000 BPM P-R Int : 000 ms QRS Dur : 150 ms QT Int : 442 ms P-R-T Axes : 000 -55 -22 degrees QTc Int : 513 ms Atrial fibrillation Left axis deviation Right bundle branch block Abnormal ECG When compared with ECG of 02-JAN-2023 15:55, No significant change was found Referred By: Sandra Brown Electronically Signed By:MELVIN FLEMING
--- NOTE | 2023-05-29 17:25 | MHC.EDTECH ---
PT EKG TAKEN AND WAS READ BY PROVIDER ,BLOOD DRAWN AND WAS SENT TO LAB ,PT WAS ASSISTED TO USE THE URINAL ,VOIDED SMALL AMOUNT OF URINE ,PT COMFORTABLE AND IS RESTING AT THIS TIME .
[2023-05-29 17:39] LABS: Basophils Percent Auto 0.3 % (0-2); Mean Corpuscular Volume 101.2 fL (80.0-98.0); PLT CLUMP 1; SCAN SMEAR FLAG 1
[2023-05-29 17:40] LABS: Eosinophils Percent Auto 0.5 % (0-4); Hematocrit 33.4 % (42.0-52.0); Hemoglobin 10.3 g/dl (14.0-18.0); Imm Gran Abs Auto 0.03 X10*3/uL (0.00-0.03); Imm Gran Pct Auto 0.4 % (0.0-0.4); Lymphocytes Absolute Auto 0.6 X10*3/uL (1.2-4.9); Lymphocytes Percent Auto 7.3 % (20-40); Mean Corpuscular HGB Conc 30.8 g/dl (31.0-36.0); Mean Corpuscular Hemoglobin 31.2 pg (27.0-33.0); Mean Platelet Volume 10.7 fL (9.4-12.4); Monocytes Absolute Auto 0.8 X10*3/uL (0.1-1.2); Monocytes Percent Auto 9.7 % (2-11); Neutrophils Absolute Auto 6.4 x10*3/uL (2.0-8.3); Neutrophils Percent Auto 81.8 % (45-73); Red Cell Distribution Width 14.7 % (11.0-16.0)
[2023-05-29 17:48] LABS: MANUAL DIFF FLAG NO; Platelet Count 132 X10*3/uL (160-400); White Blood Count 7.8 X10*3/uL (4.8-10.8)
[2023-05-29 17:50] LABS: Alanine Aminotransferase 9 U/L (0-40); Albumin Level 3.8 g/dL (3.5-5.0); Alkaline Phosphatase 64 U/L (39-117); Anion Gap 13 (12-20); Aspartate Amino Transferase 20 U/L (5-37); Bilirubin Direct 0.5 mg/dL (0.0-0.5); Bilirubin Total 1.2 mg/dL (0.0-1.0); Blood Urea Nitrogen 31 mg/dL (9-16); Calcium 9.1 mg/dL (8.4-10.2); Carbon Dioxide 33 mmol/L (22-29); Chloride 105 mmol/L (96-108); Creatinine Clr Calc Pharmacy 55.5; Estimated Glomerular Filt Rate > 60; Glucose Random 97 mg/dL (60-115); Potassium 4.9 mmol/L (3.3-5.1); Sodium 146 mmol/L (135-145); Total Protein 6.7 g/dL (6.5-8.0)
[2023-05-29 18:07] LABS: Troponin-I High Sensitivity 480.4 ng/L (<3.5-35.0)
[2023-05-29 18:13] LABS: Prothrombin Time 91.9 SEC (11.1-13.3)
[2023-05-29 18:45] LABS: INTERNATIONAL NORM RATIO 7.5 (0.9-1.1)
--- NOTE | 2023-05-29 18:46 | PC.NURSE ---
critical lab value INR 7.5/PTT 78.0 Dr. Mclean notified. no new orders at this time.
[2023-05-29 18:49] LABS: B Type Natriuretic Peptide 1394 pg/mL (<100)
[2023-05-29 19:37] LABS: OBS Int Ctl Valid YES; OBS1 POSITIVE (NEGATIVE)
[2023-05-29 19:42] LABS: Influenza A PCR NEGATIVE (Negative); Influenza B PCR NEGATIVE (Negative); Resp Syncy Virus RNA Qual PCR NEGATIVE (Negative); SARS COV2 PCR INHOUSE NEGATIVE (Negative)
[2023-05-29 21:10] LABS: Hematocrit 31.5 % (42.0-52.0)
--- NOTE | 2023-05-29 21:17 | P.HPHOSP_ITS ---
History of Present Illness Date of Service: 05/29/23 Attending physician on admission: Pola Cross Chief Complaint: SOB, hemoptysis, epistaxis Pt is an 88-year-old male with a PMH significant for?persistent AFib on Coumadin, HTN, HFpEF, and BPH who presents to the ED for evaluation of epistaxis. Patient states he has been bleeding from the nose for the past 2 days, and also noticed dark colored stools during this time. Denies any bright red blood per rectum. Has had some increased fatigue but denies any falls. Patient also reports lab work from his PCP revealed elevated INR that also prompted his visit to the emergency room. Patient apparently is on an alternating dose schedule of warfarin where he takes 5 mg one day and then 10 mg the next day. Patient is adamant that he is mostly compliant with his medications, though he admits he missed 3 days Coumadin last weekend for unknown reasons. In order to ?make up? for the missed dosage he took his 10 mg pills for 3-4 days in a row. Patient also states he normally gets his INR checked weekly, but he went 3 weeks between checking levels this last time. Patient has also had compliance issues with his Lasix, as he reports he did not take his Lasix earlier today, again for unknown reasons. Has noticed some increased lower leg edema in left leg and increased SOB. Denies orthopnea. Denies chest pain/pressure, palpitations. No fever, chills, nausea, vomiting. In the ED patient was afebrile but tachypneic up to 24, hypertensive up to 203/99, and satting at 98% on RA labs were significant for H&H of 10.3/33.4 with repeat 3 hours later of 10.0/31.5, INR 7.5 and a PTT of 78.0, troponin 480.4, BNP 1394. Stool was positive for occult blood. CXR showed congestive heart failure with bilateral pleural effusions with right more than left. Also found opacification at right lung base likely pleural effusion though cannot rule out underlying infiltrate and or atelectasis. EKG demonstrated atrial fibrillation without evidence of ST elevations or depressions and prolonged QTc of 513. Pt will be admitted to the hospital on telemetry for treatment further evaluation of elevated troponins and GI bleed E secondary to elevated INR. Review of Systems 2 Review of Systems: Epistaxis x2 days Dark colored stools x2 days Increased SOB Increase left lower leg edema Denies chest pain/pressure, palpitations No fever, chills, nausea, vomiting, diarrhea, abdominal pain PMFSH Medical History Supratherapeutic INR CHF (congestive heart failure) Hypertensive emergency Persistent atrial fibrillation Acute on chronic diastolic (congestive) heart failure Pleural effusion Congestive heart failure Herpes zoster, ocular Osteoarthritis BPH (benign prostatic hyperplasia) CHF (congestive heart failure) Pneumonitis Pleural effusion Paroxysmal atrial fibrillation (HFpEF) heart failure with preserved ejection fraction HTN (hypertension) Family History Father No problems noted. Mother No problems noted. Surgical History Status post colonoscopy with polypectomy History of total right hip arthroplasty H/O cataract extraction History of cardioversion Social History Household Members: None Housing: House Do you presently have visiting nurse or other home services: No Alcohol intake: current Alcohol intake frequency: holidays/special occasions only Patient Tobacco Use Status: Never used Tobacco Tobacco use type: Cigarette Years Smoked: 18 years Smoked in Last 30 Days: No e-Cigarette/Vaping Use: Never Used Second Hand Smoke Exposure: No Use of substances other than those prescribed or required for medical reasons: No Advance Directives: Yes Advance Directives on File: Yes Advance Directives Date on File: 04/16/21 Nutrition Risks: No Nutritional Risk service: No (PT DENIES BEING A ) Current occupational status: retired [employer] Allergies Allergy/AdvReac Type Severity Reaction Status Date / Time No Known Allergies Allergy Mild NOT Verified 05/29/23 16:19 APPLICABLE Active Medications: Current Medications Acetaminophen (Acetaminophen 325 Mg Tablet) 650 mg PO Q6H PRN PRN Reason: Pain, Mild (Pain Scale 1-3) Acetaminophen (Acetaminophen Supp 650 Mg Supp.Rect) 650 mg DE Q6H PRN PRN Reason: Pain, Mild (Pain Scale 1-3) Melatonin (Melatonin 3 Mg Tablet) 6 mg PO BEDTIME PRN PRN Reason: Insomnia Sodium Chloride (0.9 % Sodium Chloride Flush 3 Ml Syringe) 3 ml IVFLUSH QSHIFT [facility] Home Medications Medication Instructions Recorded Confirmed Last Taken Type metoprolol succinate 100 mg 100 mg PO DAILY 08/11/22 05/29/23 01/02/23 History tablet,extended release 24 hr warfarin 5 mg tablet (Jantoven) 10 mg PO MOTUWETHFR 08/11/22 05/29/23 11/04/22 History warfarin 5 mg tablet (Jantoven) 5 mg PO SUSA 11/05/22 05/29/23 11/01/22 History chlorhexidine gluconate 0.12 % 10 ml PO DAILY 01/02/23 05/29/23 Unknown History mouthwash finasteride 5 mg tablet 5 mg PO DAILY 01/02/23 05/29/23 01/02/23 History Physical Exam 2 Vital Signs and Narrative: Vital Signs: Last Vital Signs Temp 98.4 F 05/29/23 18:20 Pulse 86 05/29/23 18:20 Resp 16 05/29/23 18:20 BP 177/89 H 05/29/23 18:20 Pulse Ox 98 05/29/23 18:20 O2 Del Method Room Air 05/29/23 18:20 O2 Flow Rate 3 05/29/23 17:50 Oxygen Flow Rate 3 05/29/23 16:19 BMI result Body Mass Index 24.5 Constitutional: Alert, in no acute distress. Mental Status: Oriented to person, place and time. Eyes: Pupils are equal, round, and reactive to light. Ear, Nose, and Throat: Oropharynx clear, mucous membranes moist. Ears and nose without deformities. Trachea midline. Respiratory: Clear to auscultation bilaterally. No wheezing, rales, or rhonchi. Cardiovascular: Irregularly irregular rhythm. Gastrointestinal: Abdomen soft, non-tender, non-distended. Normal bowel sounds. Neurologic: Cranial nerves II-XII are grossly intact bilaterally. No focal neurological deficits. Moves all extremities spontaneously. Skin: Warm, dry. Musculoskeletal: No cyanosis or clubbing. Extremities: 1+ pitting edema in left lower ankle. Psychiatric: Normal mood and affect. Results Labs 05/29/23 20:47 05/29/23 17:23 Labs: Laboratory Results - last 24 hr 05/29/23 05/29/23 05/29/23 17:23 18:57 19:28 MCV 101.2 H MCH 31.2 MCHC 30.8 L RDW 14.7 Plt Count 132 L MPV 10.7 Immature Gran % (Auto) 0.4 Neut % (Auto) 81.8 H Lymph % (Auto) 7.3 L [place] % (Auto) 9.7 Eos % (Auto) 0.5 Baso % (Auto) 0.3 Lymph # (Auto) 0.6 L [place] # (Auto) 0.8 Eos # (Auto) 0.0 Baso # (Auto) 0.0 Abs Immat Gran (auto) 0.03 Absolute Neuts (auto) 6.4 Absolute Nucleated RBC 0.000 Nucleated RBC % (auto) 0.0 PT 91.9 H D INR 7.5 H* D APTT 78.0 H* D Anion Gap 13 Estim Creat Clear Calc 55.5 Estimated GFR > 60 Random Glucose 97 Calcium 9.1 D Total Bilirubin 1.2 H Direct Bilirubin 0.5 AST 20 ALT 9 Alkaline Phosphatase 64 B-Natriuretic Peptide 1394 H Total Protein 6.7 Albumin 3.8 Stool Occult Blood POSITIVE Influenza Type A (PCR) NEGATIVE Influenza Type B (PCR) NEGATIVE RSV RNA Qual (PCR) NEGATIVE SARS-CoV-2 RNA (RT-PCR) NEGATIVE Imaging Radiologist's Impressions: Impressions Chest X-Ray 05/29/23 17:50 IMPRESSION: * Congestive heart failure. * Bilateral pleural effusions right more than left. * Opacification at right lung base probably pleural effusion, cannot rule out underlying infiltrate and/or atelectasis. * Cardiac silhouette is enlarged exaggerated by AP technique. Assessment and Plan (1) GI bleed: Status: Acute (2) Supratherapeutic INR: Status: Inactive (3) Elevated troponin: Status: Acute Plan Pt is an 88-year-old male with a PMH significant for?persistent AFib on Coumadin, HTN, HFpEF, and BPH who presents to the ED for evaluation of epistaxis. Patient states he has been bleeding from the nose for the past 2 days, and also noticed dark colored stools during this time. Pt will be admitted to the hospital on telemetry for treatment further evaluation of elevated troponins and GI bleed secondary to supratherapeutic INR. Acute GI bleed Has been noncompliant with warfarin, taking extra to make up for missed days INR supratherapeutic at 7.5 Has had epistaxis and noticed dark stools for the last 2 days Stool positive for occult blood H&H 10.3/33.4 with repeat 3 hours later of 10.0/31.5, down from 13.0/40.3 on 03/08/2023 Will hold off on Vitamin K for now: pt no longer actively bleeding, INR <10, has elevated troponins Hold warfarin GI consult Follow CBC Elevated troponins Initial troponin 480.4 with repeat down trending at 456.6 Patient denies chest pain/pressure, palpitations, does endorse some increased shortness of breath Patient unable to receive heparin due to GI bleed, elevated INR Will get echocardiogram Cardiology consult Monitor on telemetry Mild HFrEF decompensation Elevated BNP above baseline, CXR evidence of CHF, lower left leg edema, increased shortness of breath Likely secondary to medication noncompliance Will give 1 dose of IV Lasix 40 mg, resume home meds tomorrow Cardiology consult Monitor on telemetry Persistent AFib Hold warfarin, continue metoprolol DNR/DNI Attending:?Dr. Cross DVT Prophylaxis: Pneumatic boots d/t GI bleed, supratherapeutic INR Pt will require a hospitalization of at least two nights for treatment and further evaluation of elevated troponin and GI bleed secondary to supratherapeutic INR. Time Spent With Patient Time: Total time managing care of this patient today ____ minutes. Quality Stroke Does the patient have a stroke diagnosis?: No VTE Prior VTE?: No VTE Risk Level:: Medical - moderate - high VTE Device Contraindication: N/A - Device Ordered VTE Drug Contraindication: Treatment Not Indicated
[2023-05-29 21:31] LABS: Troponin-I High Sensitivity 456.6 ng/L (<3.5-35.0)
[2023-05-29] MEDS: Furosemide 40 MG/4 ML VIAL IVPUSH (22:26)
--- NOTE | 2023-05-29 22:34 | PC.NURSE ---
22g IV placed in RAC. patient is resting comfortably on stretcher, respirations even and unlabored, skin pwd, offers no complaints at this time to this RN
--- NOTE | 2023-05-29 23:33 | PC.NURSE ---
pt continues to rest on stretcher, offers no complaints to this RN. Pt ambulated to bathroom with slightly unsteady gait. Pt insisted on walking by himself, this RN walked in close proximity to patient. Pt verbalizes his upset that he cannot have food, this RN educated patient why he cannot
[2023-05-30] VITALS (7 sets, daily range): BP systolic 112–162; BP diastolic 53–91; PULSE 83–108; RESP 14–20; TEMP 36.6–37; O2SAT 94–100; BMI 27.1
--- NOTE | 2023-05-30 01:32 | PC.NURSE ---
patient occasionally uses O2 at home for comfort, patient has required 3L to stay above 92% while in ER
--- NOTE | 2023-05-30 02:07 | PC.NURSE ---
patient sleeping at this time, respirations even and unlabored, skin pwd, no apparent distress
[2023-05-30 05:53] LABS: MANUAL DIFF FLAG NO
[2023-05-30 05:59] LABS: Basophils Percent Auto 0.4 % (0-2); Eosinophils Absolute Auto 0.1 X10*3/uL (0.0-0.4); Eosinophils Percent Auto 0.7 % (0-4); Hematocrit 31.3 % (42.0-52.0); Hemoglobin 9.8 g/dl (14.0-18.0); Imm Gran Abs Auto 0.03 X10*3/uL (0.00-0.03); Imm Gran Pct Auto 0.4 % (0.0-0.4); Lymphocytes Absolute Auto 0.7 X10*3/uL (1.2-4.9); Lymphocytes Percent Auto 9.1 % (20-40); Mean Corpuscular HGB Conc 31.3 g/dl (31.0-36.0); Mean Corpuscular Hemoglobin 31.7 pg (27.0-33.0); Mean Corpuscular Volume 101.3 fL (80.0-98.0); Monocytes Absolute Auto 0.9 X10*3/uL (0.1-1.2); Neutrophils Absolute Auto 5.6 x10*3/uL (2.0-8.3); Neutrophils Percent Auto 77.4 % (45-73); Platelet Count 134 X10*3/uL (160-400); Red Blood Count 3.09 X10*6/uL (4.60-5.80); Red Cell Distribution Width 14.7 % (11.0-16.0); White Blood Count 7.2 X10*3/uL (4.8-10.8)
[2023-05-30 06:12] LABS: Anion Gap 15 (12-20); Blood Urea Nitrogen 31 mg/dL (9-16); Carbon Dioxide 31 mmol/L (22-29); Chloride 103 mmol/L (96-108); Estimated Glomerular Filt Rate > 60; Glucose Random 92 mg/dL (60-115); Potassium 4.1 mmol/L (3.3-5.1); Sodium 145 mmol/L (135-145)
[2023-05-30 06:17] LABS: Prothrombin Time 89.2 SEC (11.1-13.3)
[2023-05-30 06:19] LABS: INTERNATIONAL NORM RATIO 7.3 (0.9-1.1)
--- NOTE | 2023-05-30 07:07 | PC.NURSE ---
vss up to date. nsr on the court recording monitor displaying occasional PVCs. pt currently sleeping at this time. pt seems to be in no apparent distress at the moment. pt does not seem SOB. no WOB shown. resting comfortably in bed with the lights off. pt tolerating NC well satting at 100% on 4L. respirations even and unlabored. will reassess pt when he wakes up. call kelly placed within reach.
[2023-05-30] MEDS: 0.9 % Sodium Chloride Flush 3 ML SYRINGE IVFLUSH ×2 (07:10→16:31)
--- NOTE | 2023-05-30 07:11 | PHA.MEDREC ---
Pharmacy Consult ? Medication Reconciliation Pharmacy has completed the medication reconciliation. Reviewed med rec done by nursing
--- NOTE | 2023-05-30 07:32 | PM.GICN ---
History of Present Illness Data of Consult Service Date: 05/30/23 Requesting physician: Pola Cross Primary Care Provider: Marcos Maurer MD HPI Reason for consult: anemia 88-year-old male with hx of AFib on Coumadin, HTN, HFpEF, and BPH who I am seeing for anemia Patient had lab work done by PCP with raised INR noted, after patient took extra doses of coumadin to make up for missed doses. He had noted blood from his nose and going down the back of his throat. He may have had some dark stools but no fresh rectal bleeding. Denies orthopnea. Denies chest pain/pressure, palpitations. No fever, chills, nausea, vomiting. No abdominal pain, or GERD. Since admission not had any further nose bleeds and not passed any stools. denies taking nsaids. Labs: H&H of 10.3/33.4 with repeat 3 hours later of 10.0/31.5, INR 7.5 and a PTT of 78.0, troponin 480.4, BNP 1394 (baseline is around 10-11 g/dl for HGb) Review of Systems Review of Systems: Constitutional : No Weight loss, No Fever, No Chills ENT/Mouth : No sore throat, No Rhinorrhea Eyes: No Swelling, No Redness Cardiovascular : No Chest Pain, No SOB, No Edema Respiratory : No Cough, No Sputum, No Wheezing Gastrointestinal : see HPI Genitourinary : NO Dysuria, No Urinary Frequency, No Hematuria, No Urgency Musculoskeletal : No joint pain, No Myalgias, No Joint Swelling Skin : No Skin Lesions, No rash Neuro : No Weakness, No Numbness, No Dizziness, No Headache Psych : No Anxiety/Panic, No Depression Heme/Lymph: No Bruising, No Lymphadenopathy Endocrine : No Polyuria, No Polydipsia All other systems reviewed and are negative. [facility] Past Medical History Medical History Supratherapeutic INR CHF (congestive heart failure) Hypertensive emergency Persistent atrial fibrillation Acute on chronic diastolic (congestive) heart failure Pleural effusion Congestive heart failure Herpes zoster, ocular Osteoarthritis BPH (benign prostatic hyperplasia) CHF (congestive heart failure) Pneumonitis Pleural effusion Paroxysmal atrial fibrillation (HFpEF) heart failure with preserved ejection fraction HTN (hypertension) Family History Family History Father No problems noted. Mother No problems noted. Surgical History Surgical History Status post colonoscopy with polypectomy History of total right hip arthroplasty H/O cataract extraction History of cardioversion Social History Social History Household Members: None Housing: House Do you presently have visiting nurse or other home services: No Alcohol intake: current Alcohol intake frequency: holidays/special occasions only Patient Tobacco Use Status: Never used Tobacco Tobacco use type: Cigarette Years Smoked: 18 years Smoked in Last 30 Days: No e-Cigarette/Vaping Use: Never Used Second Hand Smoke Exposure: No Use of substances other than those prescribed or required for medical reasons: No Advance Directives: Yes Advance Directives on File: Yes Advance Directives Date on File: 04/16/21 Nutrition Risks: No Nutritional Risk service: No (PT DENIES BEING A ) Current occupational status: retired [employer] Allergies Allergy/AdvReac Type Severity Reaction Status Date / Time No Known Allergies Allergy Mild NOT Verified 05/29/23 16:19 APPLICABLE Active Medications: Current Medications Acetaminophen (Acetaminophen 325 Mg Tablet) 650 mg PO Q6H PRN PRN Reason: Pain, Mild (Pain Scale 1-3) Acetaminophen (Acetaminophen Supp 650 Mg Supp.Rect) 650 mg [place] Q6H PRN PRN Reason: Pain, Mild (Pain Scale 1-3) Melatonin (Melatonin 3 Mg Tablet) 6 mg PO BEDTIME PRN PRN Reason: Insomnia Sodium Chloride (0.9 % Sodium Chloride Flush 3 Ml Syringe) [facility] Last Admin: 05/30/23 07:10 Dose: 3 ml Home Medications Medication Instructions Recorded Confirmed Last Taken Type metoprolol succinate 100 mg 100 mg PO DAILY 08/11/22 05/29/23 01/02/23 History tablet,extended release 24 hr warfarin 5 mg tablet (Jantoven) 10 mg PO MOTUWETHFR@1800 08/11/22 05/30/23 11/04/22 History warfarin 5 mg tablet (Jantoven) 5 mg PO SUSA@1800 11/05/22 05/30/23 11/01/22 History chlorhexidine gluconate 0.12 % 10 ml PO DAILY 01/02/23 05/29/23 Unknown History mouthwash finasteride 5 mg tablet 5 mg PO DAILY 01/02/23 05/29/23 01/02/23 History Physical Exam Vital Signs: Vital Signs: Last Vital Signs Temp 97.8 F 05/30/23 05:22 Pulse 83 05/30/23 07:06 Resp 16 05/30/23 07:06 BP 156/79 H 05/30/23 07:06 Pulse Ox 97 05/30/23 07:06 O2 Del Method Nasal Cannula 05/30/23 07:06 O2 Flow Rate 4 05/30/23 07:06 Oxygen Flow Rate 3 05/29/23 16:19 BMI result Body Mass Index 24.5 EXAM: GENERAL: The patient is well developed and nontoxic. VITAL SIGNS:see workflow HEENT: Nonicteric sclerae, PERRLA, EOMI. Oropharynx clear. Moist mucous membranes. Conjunctivae appear well perfused. No thyroid mass. CHEST: Chest wall is nontender. HEART: irregular rate and rhythm without murmurs. LUNGS: Reduced BS right base with bronchial breathing ABDOMEN: Soft, positive bowel sounds, nontender, no organomegaly.no flank tenderness SKIN: No rash, no excessive bruising, petechiae, or purpura. NEUROLOGIC: Cranial nerves II-XII intact without motor/sensory deficit. Psych: Appearance: grossly normal Results Labs 05/30/23 05:44 05/30/23 05:44 Labs: Short CBC 05/29/23 05/29/23 05/30/23 Range/Units 17: 20:47 05:44 WBC 7.8 7.2 (4.8-10.8) X10*3/uL Hgb 10.3 L D 10.0 L 9.8 L (14.0-18.0) g/dl Hct 33.4 L 31.5 L 31.3 L (42.0-52.0) % Plt Count 132 L 134 L (160-400) X10*3/uL BMP 05/29/23 05/30/23 17:23 05:44 Sodium 146 H 145 Potassium 4.9 4.1 Chloride 105 103 Carbon Dioxide 33 H 31 H BUN 31 H 31 H Creatinine 0.92 1.00 Calcium 9.1 D 9.0 Liver Function 05/29/23 Range/Units 17:23 Total Bilirubin 1.2 H (0.0-1.0) mg/dL Direct Bilirubin 0.5 (0.0-0.5) mg/dL AST 20 (5-37) U/L ALT 9 (0-40) U/L Alkaline Phosphatase 64 (39-117) U/L Albumin 3.8 (3.5-5.0) g/dL Imaging Chest x-ray: Attestation: I personally reviewed and interpreted this imaging study as follows: (right sided pleural effusion) Assessment and Plan (1) Coagulopathy: Status: Acute (2) Epistaxis: Status: Acute Plan 1/ Chronic anemia with epistaxis from raised INR/APTT< no evidence of acute GI bleed. HGB close to baseline. PLAN: 1/ Reverse INR to therapeutic range, if ongoing melena or drop in HGB then can consider EGD but right now would hold given clinical hx. Time Spent With Patient Time: Total time managing care of this patient today ____ minutes. Procedures Date of Service Date of Service: 05/30/23
[2023-05-30] MEDS: Finasteride 5 MG TABLET PO (08:42)
--- NOTE | 2023-05-30 08:43 | PC.NURSE ---
GIi provider bedside peaking w/ patient. medications administered per provider order. pt resting comfortably in no apparent distress. respirations even and unlabored. call kelly placed within reach.
[2023-05-30 09:09] LABS: Troponin-I High Sensitivity 461.8 ng/L (<3.5-35.0)
--- NOTE | 2023-05-30 09:29 | PC.NURSE ---
PA bedside w/ pt formulating plan of care. pt aware of plan of care at this time. PA states that shipping and receiving material handler will be seeing pt sometime throughout the day to discuss elevated heart enzymes and where to go from here. PA states that plan as of right now is to keep pt on track to be admitted.
--- NOTE | 2023-05-30 10:35 | PC.NURSE ---
patient states that he is hungry and hasn't eaten in a few days. pt was currently NPO. per PA approval - pt is able to eat at this time. will provide pt with something to eat from ED fridge until PA is able to put diet order in for pt.
[2023-05-30] MEDS: Furosemide 40 MG/4 ML VIAL IVPUSH (10:49)
--- NOTE | 2023-05-30 11:09 | PC.NURSE ---
pt dislodged IV access on right AC when ambulating to bathroom - new 20gIV placed in let upper forearm w/o complications. medication administered per provider order. call kelly placed within reach.
--- NOTE | 2023-05-30 12:35 | P.CONCA_ITS ---
History of Present Illness History of Present Illness Date of Service: 05/30/23 Requesting physician: Sara Ray Chief complaint: Bright red blood through rectum, epistaxis Narrative: 88-year-old gentleman with permanent atrial fibrillation on Coumadin and history of diastolic heart failure was presenting with epistaxis and bright red blood per rectum. His INR is 7. It appears he missed few doses of Coumadin because he ran out of Coumadin but on receiving the Coumadin back he took double the dose for few days. Started noticing some epistaxis in the last few days as well as some right red blood per rectum. Came to the emergency department and his INR was supratherapeutic. His hemoglobin is more less stable. His denying any further bleeding from his nose and saying that he has some blood in his stool still present. He is on supplemental oxygen at home. Is denying any significant shortness of breath right now but as per family in the room he gets out of breath easily when he walks. He has permanent atrial fibrillation as described above. He is supposed to be on warfarin 5 mg Wednesday and Wednesday and 10 mg on Wednesday and Wednesday. [facility] Past Medical History Medical History Supratherapeutic INR CHF (congestive heart failure) Hypertensive emergency Persistent atrial fibrillation Acute on chronic diastolic (congestive) heart failure Pleural effusion Congestive heart failure Herpes zoster, ocular Osteoarthritis BPH (benign prostatic hyperplasia) CHF (congestive heart failure) Pneumonitis Pleural effusion Paroxysmal atrial fibrillation (HFpEF) heart failure with preserved ejection fraction HTN (hypertension) Family History Family History Father No problems noted. Mother No problems noted. Surgical History Surgical History Status post colonoscopy with polypectomy History of total right hip arthroplasty H/O cataract extraction History of cardioversion Social History Social History Household Members: None Housing: House Do you presently have visiting nurse or other home services: No Alcohol intake: current Alcohol intake frequency: holidays/special occasions only Patient Tobacco Use Status: Never used Tobacco Tobacco use type: Cigarette Years Smoked: 18 years Smoked in Last 30 Days: No e-Cigarette/Vaping Use: Never Used Second Hand Smoke Exposure: No Use of substances other than those prescribed or required for medical reasons: No Advance Directives: Yes Advance Directives on File: Yes Advance Directives Date on File: 04/16/21 Nutrition Risks: No Nutritional Risk service: No (PT DENIES BEING A ) Current occupational status: retired Meds Allergies Allergy/AdvReac Type Severity Reaction Status Date / Time No Known Allergies Allergy Mild NOT Verified 05/29/23 16:19 APPLICABLE Active Medications: Current Medications Acetaminophen (Acetaminophen 325 Mg Tablet) 650 mg PO Q6H PRN PRN Reason: Pain, Mild (Pain Scale 1-3) Acetaminophen (Acetaminophen Supp 650 Mg Supp.Rect) 650 mg [place] Q6H PRN PRN Reason: Pain, Mild (Pain Scale 1-3) Finasteride (Finasteride 5 Mg Tablet) 5 mg PO DAILY [facility] Last Admin: 05/30/23 08:42 Dose: 5 mg Furosemide (Furosemide 40 Mg Tablet) 40 mg PO DAILY [facility]; Protocol Furosemide (Furosemide 40 Mg/4 Ml Vial) 40 mg IVPUSH DAILY [facility]; Protocol Last Admin: 05/30/23 10:49 Dose: 40 mg Melatonin (Melatonin 3 Mg Tablet) 6 mg PO BEDTIME PRN PRN Reason: Insomnia Metoprolol Succinate (Metoprolol Succinate Er 100 Mg Tab.Er.24h) 100 mg PO DAILY [facility]; Protocol Sodium Chloride (0.9 % Sodium Chloride Flush 3 Ml Syringe) 3 ml IVFLUSH QSHIFT [facility] Last Admin: 05/30/23 07:10 Dose: 3 ml Home Medications Medication Instructions Recorded Confirmed Last Taken Type metoprolol succinate 100 mg 100 mg PO DAILY 08/11/22 05/29/23 01/02/23 History tablet,extended release 24 hr warfarin 5 mg tablet (Jantoven) 10 mg PO MOTUWETHFR@1800 08/11/22 05/30/23 11/04/22 History warfarin 5 mg tablet (Jantoven) 5 mg PO SUSA@1800 11/05/22 05/30/23 11/01/22 History chlorhexidine gluconate 0.12 % 10 ml PO DAILY 01/02/23 05/29/23 Unknown History mouthwash finasteride 5 mg tablet 5 mg PO DAILY 01/02/23 05/29/23 01/02/23 History Physical Exam 2 Vital Signs: Vital Signs: Last Vital Signs Temp 97.8 F 05/30/23 05:22 Pulse 108 H 05/30/23 11:57 Resp 18 05/30/23 11:57 BP 146/60 H 05/30/23 11:57 Pulse Ox 100 05/30/23 11:57 O2 Del Method Nasal Cannula 05/30/23 11:57 O2 Flow Rate 4 05/30/23 11:57 Oxygen Flow Rate 3 05/29/23 16:19 BMI result Body Mass Index 24.5 GENERAL APPEARANCE: Frail appearing, on supplemental oxygen. Laying flat in bed. NECK: no carotid bruit, mild jugular venous distention. SKIN: no suspicious lesions, warm and dry. HEART: no murmurs, irregular rate and rhythm. LUNGS: clear to auscultation bilaterally. ABDOMEN: soft, nontender. EXTREMITIES: no edema. PERIPHERAL PULSES: equal. NEUROLOGIC: No gross deficits, AAO X 3 Objective Labs and Meds 05/30/23 05:44 05/30/23 05:44 Lab results: Laboratory Results - last 24 hr 05/29/23 05/29/23 05/29/23 17:23 18:57 19:28 WBC 7.8 RBC 3.30 L D Hgb 10.3 L D Hct 33.4 L MCV 101.2 H MCH 31.2 MCHC 30.8 L RDW 14.7 Plt Count 132 L MPV 10.7 Immature Gran % (Auto) 0.4 Neut % (Auto) 81.8 H Lymph % (Auto) 7.3 L [place] % (Auto) 9.7 Eos % (Auto) 0.5 Baso % (Auto) 0.3 Lymph # (Auto) 0.6 L [place] # (Auto) 0.8 Eos # (Auto) 0.0 Baso # (Auto) 0.0 Abs Immat Gran (auto) 0.03 Absolute Neuts (auto) 6.4 Absolute Nucleated RBC 0.000 Nucleated RBC % (auto) 0.0 PT 91.9 H D INR 7.5 H* D APTT 78.0 H* D Sodium 146 H Potassium 4.9 Chloride 105 Carbon Dioxide 33 H Anion Gap 13 BUN 31 H Creatinine 0.92 Estim Creat Clear Calc 55.5 Estimated GFR > 60 Random Glucose 97 Calcium 9.1 D Total Bilirubin 1.2 H Direct Bilirubin 0.5 AST 20 ALT 9 Alkaline Phosphatase 64 Troponin I High Sens 480.4 H* D B-Natriuretic Peptide 1394 H Total Protein 6.7 Albumin 3.8 Stool Occult Blood POSITIVE Influenza Type A (PCR) NEGATIVE Influenza Type B (PCR) NEGATIVE RSV RNA Qual (PCR) NEGATIVE SARS-CoV-2 RNA (RT-PCR) NEGATIVE 05/29/23 05/30/23 05/30/23 20:47 05:44 08:28 WBC 7.2 RBC 3.09 L Hgb 10.0 L 9.8 L Hct 31.5 L 31.3 L MCV 101.3 H MCH 31.7 MCHC 31.3 RDW 14.7 Plt Count 134 L MPV 11.0 Immature Gran % (Auto) 0.4 Neut % (Auto) 77.4 H Lymph % (Auto) 9.1 L [place] % (Auto) 12.0 H Eos % (Auto) 0.7 Baso % (Auto) 0.4 Lymph # (Auto) 0.7 L [place] # (Auto) 0.9 Eos # (Auto) 0.1 Baso # (Auto) 0.0 Abs Immat Gran (auto) 0.03 Absolute Neuts (auto) 5.6 Absolute Nucleated RBC 0.000 Nucleated RBC % (auto) 0.0 PT 89.2 H INR 7.3 H* APTT Sodium 145 Potassium 4.1 Chloride 103 Carbon Dioxide 31 H Anion Gap 15 BUN 31 H Creatinine 1.00 Estim Creat Clear Calc 51.0 Estimated GFR > 60 Random Glucose 92 Calcium 9.0 Total Bilirubin Direct Bilirubin AST ALT Alkaline Phosphatase Troponin I High Sens 456.6 H* 461.8 H* B-Natriuretic Peptide Total Protein Albumin Stool Occult Blood Influenza Type A (PCR) Influenza Type B (PCR) RSV RNA Qual (PCR) SARS-CoV-2 RNA (RT-PCR) Imaging Radiologist's impression: Impressions Chest X-Ray 05/29/23 17:50 IMPRESSION: * Congestive heart failure. * Bilateral pleural effusions right more than left. * Opacification at right lung base probably pleural effusion, cannot rule out underlying infiltrate and/or atelectasis. * Cardiac silhouette is enlarged exaggerated by AP technique. Assessment and Plan (1) Epistaxis: Status: Acute (2) Elevated troponin: Status: Acute (3) GI bleed: Status: Acute (4) Subtherapeutic international normalized ratio (INR): Status: Acute Plan 88-year-old gentleman presenting with epistaxis and bright red blood per rectum. His INR is 7.3. He was taking extra doses of Coumadin to catch up because he ran out of Coumadin recently. No active epistaxis currently. He is saying he still has some blood in his stool currently. Would let the INR drift down on his own and would try to avoid giving any vitamin K currently unless he has any significant bleeding. I am not showed Coumadin will be the best drug to use in this gentleman and will see if apixaban or Xarelto can be covered by his insurance. His home dose of Lasix and Toprol-XL should be resumed. Mildly elevated troponin levels. No ischemic symptoms currently. I do not think we need to really pursue any further evaluation for this. Elevated BNP. Blood pressure is elevated and I think we should start resuming home medications and then titrate blood pressure medications as required. Thank you for allowing me to participate in the care of your patient. Please feel free to contact me if you have any questions. Time Spent With Patient Time: Total time managing care of this patient today ____ minutes. Procedures Date of Service Date of Service: 05/30/23
--- NOTE | 2023-05-30 14:49 | PC.NURSE ---
called floor to give report, was asked to tiger text the nurse to have them call for report. tiger text has been sent.
--- NOTE | 2023-05-30 15:12 | PC.NURSE ---
report given to RN on [facility] - transport notified and aware.
--- NOTE | 2023-05-30 17:15 | P.PNIM_ITS ---
Subjective Subjective Date of Service: 05/30/23 Interval History: seen and examined this morning follow up for elevated INR, blood in stool denies abdominal pain or sob at this time Review of Systems Review of Systems: Yes all other systems are reviewed and are negative Constitutional Constitutional: Denies chills and Denies fever(s) Cardiovascular Cardiovascular: Denies chest pain, Denies palpitations and Denies dyspnea Respiratory Respiratory: Denies cough and Denies dyspnea Gastrointestinal Gastrointestinal: Denies abdominal pain Endocrine Endocrine: Denies palpitations Physical Exam 2 Vital Signs: Vital Signs: Last Vital Signs Temp 98.0 F 05/30/23 15:21 Pulse 105 H 05/30/23 15:21 Resp 20 05/30/23 15:21 BP 149/84 H 05/30/23 15:21 Pulse Ox 96 05/30/23 15:21 O2 Del Method Nasal Cannula 05/30/23 15:21 O2 Flow Rate 4 05/30/23 15:21 Oxygen Flow Rate 3 05/29/23 16:19 BMI result Body Mass Index 27.1 Const: General: cooperative, comfortable, no acute distress, alert and awake Nutritional Appearance: average body habitus Orientation/consciousness: p atient oriented x3 Resp: Effort & Inspection: normal respiratory effort, able to speak in complete sentences, no respiratory distress and no use of accessory muscles Cardio: Rate: regular rate Heart sounds: S1 normal heart sound present and S2 normal heart sound present GI: Inspection: No distended Palpation (GI): Soft to palpation and nontender Neuro: General: patient oriented x3, moves all extremities and CN's II-XI intact bilaterally Extrem: General: Yes no pedal edema Objective Data Active Medications Acetaminophen (Acetaminophen 325 Mg Tablet) 650 mg PO Q6H PRN PRN Reason: Pain, Mild (Pain Scale 1-3) Acetaminophen (Acetaminophen Supp 650 Mg Supp.Rect) 650 mg [place] Q6H PRN PRN Reason: Pain, Mild (Pain Scale 1-3) Finasteride (Finasteride 5 Mg Tablet) 5 mg PO DAILY [facility] Last Admin: 05/30/23 08:42 Dose: 5 mg Documented By: HAFSA Furosemide (Furosemide 40 Mg Tablet) 40 mg PO DAILY [facility]; Protocol Furosemide (Furosemide 40 Mg/4 Ml Vial) 40 mg IVPUSH DAILY [facility]; Protocol Last Admin: 05/30/23 10:49 Dose: 40 mg Documented By: HAFSA Melatonin (Melatonin 3 Mg Tablet) 6 mg PO BEDTIME PRN PRN Reason: Insomnia Metoprolol Succinate (Metoprolol Succinate Er 100 Mg Tab.Er.24h) 100 mg PO DAILY [facility]; Protocol Sodium Chloride (0.9 % Sodium Chloride Flush 3 Ml Syringe) 3 ml IVFLUSH QSHIFT [facility] Last Admin: 05/30/23 16:31 Dose: 3 ml Documented By: KIRIT Labs 05/30/23 05:44 05/30/23 05:44 Labs: Laboratory Results - last 24 hr 05/29/23 05/29/23 05/29/23 17:23 18:57 19:28 MCV 101.2 H MCH 31.2 MCHC 30.8 L RDW 14.7 Plt Count 132 L MPV 10.7 Immature Gran % (Auto) 0.4 Neut % (Auto) 81.8 H Lymph % (Auto) 7.3 L [place] % (Auto) 9.7 Eos % (Auto) 0.5 Baso % (Auto) 0.3 Lymph # (Auto) 0.6 L [place] # (Auto) 0.8 Eos # (Auto) 0.0 Baso # (Auto) 0.0 Abs Immat Gran (auto) 0.03 Absolute Neuts (auto) 6.4 Absolute Nucleated RBC 0.000 Nucleated RBC % (auto) 0.0 PT 91.9 H D INR 7.5 H* D APTT 78.0 H* D Anion Gap 13 Estim Creat Clear Calc 55.5 Estimated GFR > 60 Random Glucose 97 Calcium 9.1 D Total Bilirubin 1.2 H Direct Bilirubin 0.5 AST 20 ALT 9 Alkaline Phosphatase 64 B-Natriuretic Peptide 1394 H Total Protein 6.7 Albumin 3.8 Stool Occult Blood POSITIVE Influenza Type A (PCR) NEGATIVE Influenza Type B (PCR) NEGATIVE RSV RNA Qual (PCR) NEGATIVE SARS-CoV-2 RNA (RT-PCR) NEGATIVE 05/30/23 05:44 MCV 101.3 H MCH 31.7 MCHC 31.3 RDW 14.7 Plt Count 134 L MPV 11.0 Immature Gran % (Auto) 0.4 Neut % (Auto) 77.4 H Lymph % (Auto) 9.1 L [place] % (Auto) 12.0 H Eos % (Auto) 0.7 Baso % (Auto) 0.4 Lymph # (Auto) 0.7 L [place] # (Auto) 0.9 Eos # (Auto) 0.1 Baso # (Auto) 0.0 Abs Immat Gran (auto) 0.03 Absolute Neuts (auto) 5.6 Absolute Nucleated RBC 0.000 Nucleated RBC % (auto) 0.0 PT 89.2 H INR 7.3 H* APTT Anion Gap 15 Estim Creat Clear Calc 51.0 Estimated GFR > 60 Random Glucose 92 Calcium 9.0 Total Bilirubin Direct Bilirubin AST ALT Alkaline Phosphatase B-Natriuretic Peptide Total Protein Albumin Stool Occult Blood Influenza Type A (PCR) Influenza Type B (PCR) RSV RNA Qual (PCR) SARS-CoV-2 RNA (RT-PCR) Assessment and Plan (1) Coagulopathy: Status: Acute Plan Pt is an 88-year-old male with a PMH significant for?persistent AFib on Coumadin, HTN, HFpEF, and BPH who presents to the ED for evaluation of epistaxis. Patient states he has been bleeding from the nose for the past 2 days, and also noticed dark colored stools during this time Acute GI bleed likely due to swallowing blood from epistaxis due to supratherapeutic INR INR remains elevated at 7.3 Will hold off on Vitamin K for now given no active bleeding at this time , INR <10 Hold warfarin seen by GI - no further workup required at this time, consider reversing INR/EGD if ongoing melena or drop in H/H Follow CBC Elevated troponins troponin elevated but remains flat, no ischemic changes. possible type 2 NE secondary to GI bleeding currently asymptomatic echocardiogram pending seen by Cardiology - no further work up recommended at this time Mild HFrEF decompensation Elevated BNP above baseline, CXR evidence of CHF, lower left leg edema, increased shortness of breath received IV lasix on admission and today, will return to home lasix dose in am Cardiology following Persistent AFib Hold warfarin- per cardiology consider changing to alternative AC with eliquis or xarelto as patient not taking coumadin appropriately follow INR continue metoprolol DNR/DNI Attending:?Dr. Toth DVT Prophylaxis: Pneumatic boots d/t GI bleed, supratherapeutic INR requires ongoing inpatient stay for management of troponin and GI bleed secondary to supratherapeutic INR. Time Spent With Patient Time: Total time managing care of this patient today ____ minutes. Quality Stroke Does the patient have a stroke diagnosis?: No VTE Prior VTE?: No VTE Risk Level:: Medical - moderate - high VTE Device Contraindication: N/A - Device Ordered VTE Drug Contraindication: Treatment Not Indicated
[2023-05-31 03:26] VITALS: BP 146/77; PULSE 94; RESP 19; TEMP 36.7; O2SAT 94
--- NOTE | 2023-05-31 07:00 | CA_ITS ---
Transthoracic Echocardiogram Patient (Last, First, Middle): Thierry Edwards K Gender: Male Date of : 1935 Age: 88 Procedure Date: 05/31/2023 Procedure Type: Transthoracic Echocardiogram Location: [facility] – [place] Height: 175.26 cm Weight: 83.01 kg BSA: 1.99 m2 Heart Rate: 93 bpm BP: 147 / 77 mmHg Vertical Roll Operator: ISHA Referring MD: Ihsan JIMENEZ Extension Edger: Eduardo Crook MD Symptoms: Elevated troponins Study Quality: Fair but adequate ECG Rhythm: Atrial Fibrillation Conclusions: - 1. Normal LV ejection fraction 55-60% with mild LVH 2. At least moderately dilated right ventricle with reduced systolic function 3. Severely dilated left and right atrium 4. Trivial aortic regurgitation 5. Mildly dilated ascending aorta at 4.1 cm 6. Moderate to severely elevated right ventricular systolic pressure was mildly elevated right atrial pressures 7. Trivial pericardial effusion Findings Procedure Information The patient declines contrast. Left Ventricle Normal left ventricular size and systolic function. There is mildly increased left ventricular wall thickness. The visually estimated ejection fraction is between 55-60%. There is a flattened septum in systole consistent with right ventricular pressure overload. Diastolic function is indeterminate on the basis of available data. Right Ventricle Moderately increased right ventricular cavity size. There is mild to moderately decreased right ventricular systolic function. Atria The left atrium is severely dilated. There is no evidence of interatrial shunt. The right atrium is severely dilated. Aortic Valve There is mild calcification of the aortic valve. There is mild thickening of the aortic valve. There is no aortic valve stenosis. There is trace (trivial) aortic valve regurgitation. Mitral Valve There is mild anterior and moderate posterior mitral leaflet thickening. The posterior mitral leaflet has restricted mobility. There is moderate mitral annular calcification. There is trace mitral valve regurgitation. There is no mitral valve stenosis. Pulmonic Valve The pulmonic valve is likely normal. Tricuspid Valve Normal tricuspid valve structure. There is mild tricuspid valve regurgitation. Mildly elevated right atrial pressure. Moderate to severe pulmonary hypertension is present. Great Vessels The pulmonary artery was not well visualized. There is mild dilatation of the ascending aorta measuring 4.10 cm. Venous The inferior vena cava is mildly dilated and collapses less than 50% with inspiration. Pericardium/Pleural There is a trivial loculated pericardial effusion overlying the left ventricle. Prior Study Comparison Changes noted compared to prior study dated: 11/06/2022. RV systolic pressure is marginally elevated Measurements 2D Linear Measurements IVSd: 1.23 0.6-0.9/0.6-1.0 cm LVIDd: 4.62 3.9-5.3/4.2-5.9 cm LVIDd Index: 2.32 2.4-3.2/2.2-3.1 cm/m2 LVPWd: 1.28 0.7-1.1 cm LA Diam: 4.90 2.7-3.8/3.0-4.0 cm LAIDs Index: 2.46 1.5-2.3 cm/m2 LV Mass: 274.41 67-162/88-224 g LV Mass Index: 137.89 43-95/49-115 g/m2 LVOT Diam: 2.30 3.0+(-)1.3 cm 2D Systolic Function EF 2C: 53.80 >55% Mitral Valve MV Pk E: 1.21 Aortic Valve AoV Pk Antwan: 1.31 AoV Mn Antwan: 0.91 AoV VTI: 0.24 AoV Pk Grad: 7.00 Aov Mn Grad: 4.00 BO Cont.VTI: 3.04 LVOT LVOT Pk Antwan: 0.76 LVOT Mn Antwan: 0.65 LVOT VTI: 0.17 LVOT Pk Grad: 2.00 LVOT Mn Grad: 2.00 LVOT Diam: 2.30 LVOT Area: 4.15 Diastolic Function MV Pk E: 1.21 Right Ventricle TAPSE (mm): 14.60 TVS' Antwan: 10.00 Tricuspid Valve TR Pk Grad: 52.00 RA Press: 8.00 RVSP: 60.00 Great Vessels Aorta Sinus of Valsalva: 3.50 2.0-3.5 cm Ao Asc: 4.10 2.1-3.4 cm Pulmonary Valve PV Pk Antwan: 0.69 Peak PV Grad: 2.00 Updated in Other Vendor System with Status of Final Eduardo Crook MD electronically signed on 05/31/2023 12:35:42 PM with status of Final
[2023-05-31 07:29] LABS: Prothrombin Time 73.5 SEC (11.1-13.3)
--- NOTE | 2023-05-31 07:30 | PC.NURSE ---
pt has 8 beats of vtach. on assessment, pt was sleeping, denied chest pain or sob. notified provider, vs stable
[2023-05-31 07:47] VITALS: BP 174/87; PULSE 77; RESP 20; TEMP 36.9; O2SAT 98
[2023-05-31] MEDS: 0.9 % Sodium Chloride Flush 3 ML SYRINGE IVFLUSH ×2 (09:13→15:52)
[2023-05-31] MEDS: Finasteride 5 MG TABLET PO (09:13)
[2023-05-31] MEDS: Furosemide 40 MG TABLET PO (09:13)
[2023-05-31] MEDS: Metoprolol Succinate ER 100 MG TAB.ER.24H PO (09:13)
--- NOTE | 2023-05-31 10:18 | PM.PNCARD ---
Subjective Subjective Date of Service: 05/31/23 Principal diagnosis: Atrial fibrillation, right heart failure, elevated troponin. Interval history: Patient had right shoulder blade discomfort yesterday, not able to describe it. Lasted for half an are and since then has dissipated. EKG done showed no ischemic changes. Troponin is in the 400 range, but flat. There is no clear rise and fall other troponin. Patient not having any longer any epistaxis a GI bleeding. Atrial fibrillation rate is controlled. Denies any shortness of breath. Denies any leg edema, abdominal distension. Review of Systems Review of Systems Yes all other systems are reviewed and are negative Physical Exam Vital Signs: Last Vital Signs Temp 98.5 F 05/31/23 07:47 Pulse 77 05/31/23 07:47 Resp 20 05/31/23 07:47 BP 174/87 H 05/31/23 07:47 Pulse Ox 98 05/31/23 07:47 O2 Del Method Nasal Cannula 05/31/23 07:47 O2 Flow Rate 4 05/31/23 07:47 Oxygen Flow Rate 3 05/29/23 16:19 BMI result Body Mass Index 27.1 GENERAL APPEARANCE: Frail appearing, on supplemental oxygen. Laying flat in bed. NECK: no carotid bruit, mild jugular venous distention. SKIN: no suspicious lesions, warm and dry. HEART: no murmurs, irregular rate and rhythm. LUNGS: clear to auscultation bilaterally. ABDOMEN: soft, nontender. EXTREMITIES: no edema. PERIPHERAL PULSES: equal. NEUROLOGIC: No gross deficits, AAO X 3 Objective Labs and Meds 05/30/23 05:44 05/30/23 05:44 Lab results: Laboratory Results - last 24 hr 05/31/23 06:31 PT 73.5 H INR 6.0 H* Hold Green Top See Note Progress Note: A&P Assessment and plan (1) Elevated troponin: Status: Acute Assessment and Plan: Elevated but flat troponin of unclear significance. Does appear to be secondary to myocardial ischemia as his symptoms are very atypical and then no EKG changes. Probably related to RV strain from his right heart failure. Clinically does appear to be in overt significant heart failure. Management would be medical. Continue current rate control strategy. Continue full oral anticoagulation, see below for strategy. (2) Persistent atrial fibrillation: Status: Acute Assessment and Plan: Atrial fibrillation controlled ventricular response. Continue current rate control. Has failed rhythm control approach. Has had poor compliance with follow-up in the past. Agree with switch to direct oral anticoagulant if patient is able to afford it. The past it has been an issue with affordability of these agents. Discussed with Case Management about the same. (3) CHF (congestive heart failure): Status: Acute Assessment and Plan: Heart failure, clinically appears to be euvolemic and well compensated. Continue current oral diuretic regimen. Better control blood pressure is necessary. Continue current oral diuretic regimen. Consider adding amlodipine 5 mg to his regimen. Will sign of the case at this point time. Thank you for allowing me to partake in his care Time Spent With Patient Time: Total time managing care of this patient today ____ minutes. Progress Note: Quality Stroke Does the patient have a stroke diagnosis?: No Procedures Date of Service Date of Service: 05/31/23
[2023-05-31 11:09] VITALS: BP 145/79; PULSE 97; RESP 15; TEMP 36.9; O2SAT 100
--- NOTE | 2023-05-31 12:00 | HO.PM.IMPN ---
Subjective Subjective Date of Service: 05/31/23 Interval History: seen and examined this morning follow up for elevated INR, blood in stool denies abdominal pain or sob at this time Review of Systems Review of Systems: Yes all other systems are reviewed and are negative Constitutional Constitutional: Denies chills and Denies fever(s) Cardiovascular Cardiovascular: Denies chest pain, Denies palpitations and Denies dyspnea Respiratory Respiratory: Denies cough and Denies dyspnea Gastrointestinal Gastrointestinal: Denies abdominal pain Endocrine Endocrine: Denies palpitations Physical Exam Vital Signs: Vital Signs: Last Vital Signs Temp 98.4 F 05/31/23 11:09 Pulse 97 05/31/23 11:09 Resp 15 05/31/23 11:09 BP 145/79 H 05/31/23 11:09 Pulse Ox 100 05/31/23 11:09 O2 Del Method Nasal Cannula 05/31/23 11:09 O2 Flow Rate 3 05/31/23 11:09 Oxygen Flow Rate 3 05/29/23 16:19 BMI result Body Mass Index 27.1 Appearing in no acute distress lung sounds are clear to auscultation heart regular rate rhythm, clear S1, S2 positive bowel sounds, abdomen is soft, nontender neuro patient is alert x3, no focal deficits Objective Data Active Medications Acetaminophen (Acetaminophen 325 Mg Tablet) 650 mg PO Q6H PRN PRN Reason: Pain, Mild (Pain Scale 1-3) Acetaminophen (Acetaminophen Supp 650 Mg Supp.Rect) 650 mg [place] Q6H PRN PRN Reason: Pain, Mild (Pain Scale 1-3) Finasteride (Finasteride 5 Mg Tablet) 5 mg PO DAILY [facility] Last Admin: 05/31/23 09:13 Dose: 5 mg Documented By: TIM Furosemide (Furosemide 40 Mg Tablet) 40 mg PO DAILY [facility]; Protocol Last Admin: 05/31/23 09:13 Dose: 40 mg Documented By: TIM Melatonin (Melatonin 3 Mg Tablet) 6 mg PO BEDTIME PRN PRN Reason: Insomnia Metoprolol Succinate (Metoprolol Succinate Er 100 Mg Tab.Er.24h) 100 mg PO DAILY [facility]; Protocol Last Admin: 05/31/23 09:13 Dose: 100 mg Documented By: TIM Sodium Chloride (0.9 % Sodium Chloride Flush 3 Ml Syringe) 3 ml IVFLUSH QSHIFT [facility] Last Admin: 05/31/23 09:13 Dose: 3 ml Documented By: TIM Labs 05/30/23 05:44 05/30/23 05:44 Labs: Laboratory Results - last 24 hr 05/31/23 06:31 PT 73.5 H INR 6.0 H* Hold Green Top See Note Assessment and Plan (1) Coagulopathy: Status: Acute Plan Pt is an 88-year-old male with a PMH significant for?persistent AFib on Coumadin, HTN, HFpEF, and BPH who presents to the ED for evaluation of epistaxis. Patient states he has been bleeding from the nose for the past 2 days, and also noticed dark colored stools during this time Acute GI bleed likely due to swallowing blood from epistaxis due to supratherapeutic INR INR remains elevated at 6.0 Will hold off on Vitamin K for now given no active bleeding at this time , INR <10 seen by GI - no further workup required at this time, consider reversing INR/EGD if ongoing melena or drop in H/H Follow CBC Elevated troponins troponin elevated but remains flat, no ischemic changes. possible type 2 VT secondary to GI bleeding currently asymptomatic echocardiogram pending seen by Cardiology - no further work up recommended at this time Mild HFrEF decompensation Elevated BNP above baseline, CXR evidence of CHF, lower left leg edema, increased shortness of breath received IV lasix on admission and today, will return to home lasix dose in am Cardiology following Persistent AFib Hold warfarin- per cardiology consider changing to alternative AC with eliquis or xarelto as patient not taking coumadin appropriately follow INR continue metoprolol cardio rec DOAC when stable DNR/DNI Attending:?Dr. Gould DVT Prophylaxis: Pneumatic boots d/t GI bleed, supratherapeutic INR requires ongoing inpatient stay for management of troponin and GI bleed secondary to supratherapeutic INR. Time Spent With Patient Time: Total time managing care of this patient today ____ minutes. Quality Stroke Does the patient have a stroke diagnosis?: No VTE Prior VTE?: No VTE Risk Level:: Medical - moderate - high VTE Device Contraindication: N/A - Device Ordered VTE Drug Contraindication: Treatment Not Indicated
--- NOTE | 2023-05-31 12:11 | MHC.CM.PN ---
PT REPORTS HE LIVES ALONE AND HIS DAUGHTER CHECKS IN DAILY HE SAYS HE IS INDEPENDENT WITH CARE AND USES A CANE TO AMBULATE HE REPORTS HE WAS ACTIVE WITH [facility], BUT THEY HAVE NOT SEEN HIM IN A WHILE HE IS UNSURE IF THEY ARE STILL ACTIVE, BUT DOES NOT FEEL HE NEEDS THEM ALL THE TIME, HE SAYS MAYBE 1X/MONTH WOULD BE GOOD HE HAS A HCP ON FILE AND HIS PCP IS VONNIE MORRISON CM ATTEMPTED TO DELIVER PTS IMM, HOWEVER HE STATES HE KNOWS EVERYTHING THAT MEDICARE PAPER SAYS AND DOES NOT WANT ANYMORE OF THEM. CM OFFERED TO LEAVE IT ON THE TABLE, PT STATED THROW IT IN THE TRASH DCP: HOME ? [facility] DAUGHTER WILL TRANSPORT
[2023-05-31 14:00] LABS: Hematocrit 29.8 % (42.0-52.0); Hemoglobin 9.3 g/dl (14.0-18.0); Mean Corpuscular HGB Conc 31.2 g/dl (31.0-36.0); Mean Corpuscular Hemoglobin 31.4 pg (27.0-33.0); Mean Corpuscular Volume 100.7 fL (80.0-98.0); Mean Platelet Volume 10.8 fL (9.4-12.4); Platelet Count 150 X10*3/uL (160-400); Red Blood Count 2.96 X10*6/uL (4.60-5.80); Red Cell Distribution Width 14.7 % (11.0-16.0); White Blood Count 8.3 X10*3/uL (4.8-10.8)
[2023-05-31 15:52] VITALS: BP 141/70; PULSE 83; RESP 18; TEMP 37; O2SAT 99
[2023-05-31 19:44] VITALS: BP 137/72; PULSE 91; RESP 20; TEMP 37.1; O2SAT 99
[2023-06-01] VITALS: BP 158/78; PULSE 96; RESP 16; TEMP 37.1; O2SAT 97
[2023-06-01 04:00] VITALS: BP 123/82; PULSE 95; RESP 14; TEMP 37.1; O2SAT 95
[2023-06-01 07:00] LABS: Prothrombin Time 36.3 SEC (11.1-13.3)
[2023-06-01 07:03] VITALS: BP 142/82; PULSE 88; RESP 20; TEMP 37.2; O2SAT 97
[2023-06-01 07:13] LABS: Anion Gap 14 (12-20); Blood Urea Nitrogen 25 mg/dL (9-16); Calcium 8.9 mg/dL (8.4-10.2); Carbon Dioxide 33 mmol/L (22-29); Chloride 99 mmol/L (96-108); Creatinine Clr Calc Pharmacy 61.5; Estimated Glomerular Filt Rate > 60; Glucose Random 101 mg/dL (60-115); Potassium 3.7 mmol/L (3.3-5.1); Sodium 142 mmol/L (135-145)
[2023-06-01] MEDS: Metoprolol Succinate ER 100 MG TAB.ER.24H PO (09:57)
[2023-06-01] MEDS: Finasteride 5 MG TABLET PO (09:57)
[2023-06-01] MEDS: Furosemide 40 MG TABLET PO (09:57)
[2023-06-01] MEDS: 0.9 % Sodium Chloride Flush 3 ML SYRINGE IVFLUSH (09:58)
[2023-06-01 10:03] LABS: Hematocrit 29.2 % (42.0-52.0); Hemoglobin 9.4 g/dl (14.0-18.0); Mean Corpuscular HGB Conc 32.2 g/dl (31.0-36.0); Mean Corpuscular Hemoglobin 32.1 pg (27.0-33.0); Mean Corpuscular Volume 99.7 fL (80.0-98.0); Mean Platelet Volume 11.2 fL (9.4-12.4); Platelet Count 152 X10*3/uL (160-400); Red Blood Count 2.93 X10*6/uL (4.60-5.80); Red Cell Distribution Width 14.5 % (11.0-16.0); White Blood Count 9.2 X10*3/uL (4.8-10.8)
[2023-06-01 10:08] VITALS: BP 138/64; PULSE 102; RESP 16; O2SAT 97
[2023-06-01 10:54] VITALS: BP 134/71; PULSE 96; RESP 20; TEMP 37.2; O2SAT 99
--- NOTE | 2023-06-01 13:00 | W.MHC.F2F ---
Service Date Service Date: 06/01/23 Encounter Date of encounter: 06/01/23 Reasons for Services Signs and symptoms assessed: epistaxis anemia Reason for mcc: CV/CP assess and/or care Homebound: Leaving the home is medically contraindicated at this time without the asist of a device and/or another person due th the listed conditions above and below. Reason homebound: unsteady gait / fall risk Certification: Based on the above findings, I certify that this patient is confined to the home and needs intermittent mcc care, physical therapy and/or speech therapy, or continues to need occupational therapy. The patient is under my care, and I have initiated the establishment of the plan of care. The patient will be followed by a physician who will periodically review the plan of care. Time Spent With Patient Time: Total time managing care of this patient today ____ minutes.
[2023-06-01 15:52] VITALS: BP 134/71; PULSE 96; O2SAT 99
--- NOTE | 2023-06-01 17:02 | P.DS_ITS ---
DS: Providers Provider Date of Service: 06/01/23 Date of admission: 05/29/23 19:49 Primary care physician: Marcos Maurer MD Consults: 05/29/23 19:49 Consult to Cardiology Routine Consulting Provider: [facility] [place] Cardiovascular Services Reason for consultation: Elevated troponin Has provider been notified: Yes Consult to Gastroenterology Routine Consulting Provider: Ashley Pollock Reason for consultation: GI bleed DS: Diagnosis Discharge Diagnosis (1) Coagulopathy: Status: Acute DS: Summary Hospital Course Hospital Course: History and physical as per admitting provider. Pt is an 88-year-old male with a PMH significant for?persistent AFib on Coumadin, HTN, HFpEF, and BPH who presents to the ED for evaluation of epistaxis. Patient states he has been bleeding from the nose for the past 2 days, and also noticed dark colored stools during this time. Denies any bright red blood per rectum. Has had some increased fatigue but denies any falls. Patient also reports lab work from his PCP revealed elevated INR that also prompted his visit to the emergency room. Patient apparently is on an alternating dose schedule of warfarin where he takes 5 mg one day and then 10 mg the next day. Patient is adamant that he is mostly compliant with his medications, though he admits he missed 3 days Coumadin last weekend for unknown reasons. In order to ?make up? for the missed dosage he took his 10 mg pills for 3-4 days in a row. Patient also states he normally gets his INR checked weekly, but he went 3 weeks between checking levels this last time. Patient has also had compliance issues with his Lasix, as he reports he did not take his Lasix earlier today, again for unknown reasons. Has noticed some increased lower leg edema in left leg and increased SOB. Denies orthopnea. Denies chest pain/pressure, palpitations. No fever, chills, nausea, vomiting. In the ED patient was afebrile but tachypneic up to 24, hypertensive up to 203/99, and satting at 98% on RA labs were significant for H&H of 10.3/33.4 with repeat 3 hours later of 10.0/31.5, INR 7.5 and a PTT of 78.0, troponin 480.4, BNP 1394. Stool was positive for occult blood. CXR showed congestive heart failure with bilateral pleural effusions with right more than left. Also found opacification at right lung base likely pleural effusion though cannot rule out underlying infiltrate and or atelectasis. EKG demonstrated atrial fibrillation without evidence of ST elevations or depressions and prolonged QTc of 513. Pt will be admitted to the hospital on telemetry for treatment further evaluation of elevated troponins and GI bleed E secondary to elevated INR. 88-year-old man treated for acute epistaxis with his supratherapeutic INR and anemia. It also appears that he had some episodes of bloody stool but it was likely secondary to swallowing blood from the epistaxis. He was seen evaluated by Gastroenterology who thought the same and did not think he required any further workup other than reversing the INR. Initial INR was 7.5 but went down to 3.0 with no reversing agents. Was also treated for mild heart failure with IV Lasix but change to home dose of Lasix soon after admission. He was noted to have an elevated troponin that remain flat with no ischemic EKG changes. Echocardiogram showed EF of 55-60%. Patient improved significantly during hospitalization. Was seen and evaluated by Physical therapy with recommendation for home PT. Patient was agreeable to be discharged home. His warfarin dose was decreased from 10 mg every other day to 7.5 mg every other day alternating with 5 mg every day. He [facility] for as blood draws. Time Spent with Patient Time attestation: Total time managing care of this patient today ____ minutes. Discharge coordination time: Greater than 30 minutes Quality: Safe Use of Opioids Does Pt have an Active Cancer Diagnosis on the Problem List?: No Quality: Stroke Does the patient have a stroke diagnosis?: No Physical Exam Vital Signs: Vital Signs: Last Vital Signs Temp 99.0 F 06/01/23 10:54 Pulse 96 06/01/23 15:52 Resp 20 06/01/23 10:54 BP 134/71 06/01/23 15:52 Pulse Ox 99 06/01/23 15:52 O2 Del Method Nasal Cannula 06/01/23 10:54 O2 Flow Rate 3 06/01/23 10:54 Oxygen Flow Rate 3 05/29/23 16:19 BMI result Body Mass Index 27.1 Appearing in no acute distress head is normocephalic atraumatic eyes pupils are PERRLA sclera is anicteric mouth throat mucous membranes are intact and moist neck is supple no lymphadenopathy, no JVD noted lung sounds are clear to auscultation heart regular rate rhythm, clear S1, S2 positive bowel sounds, abdomen is soft, nontender neuro patient is alert x3, no focal deficits DS: Data Data Completed and Pending Labs on day of discharge: Laboratory Results - last 24 hr 06/01/23 06/01/23 06:07 06:09 WBC 9.2 RBC 2.93 L Hgb 9.4 L Hct 29.2 L MCV 99.7 H MCH 32.1 MCHC 32.2 RDW 14.5 Plt Count 152 L MPV 11.2 Absolute Nucleated RBC 0.000 Nucleated RBC % (auto) 0.0 Hold Purple Top SEE NOTE PT 36.3 H D INR 3.0 H D Sodium 142 Potassium 3.7 Chloride 99 Carbon Dioxide 33 H Anion Gap 14 BUN 25 H Creatinine 0.83 Estim Creat Clear Calc 61.5 Estimated GFR > 60 Random Glucose 101 Calcium 8.9 Discharge Plan Discharge Anticipated Discharge Date/Time: 06/01/23 11:59 Patient Disposition: Home Health Service Discharge Diagnosis: Epistaxis Supratherapeutic INR Elevated troponins Mild heart failure with reduced ejection fraction Referrals: [facility] [Outside] - 1 Week Marcos Maurer MD [Primary Care Provider] - 1 Week Discharge Medications: New warfarin 5 mg tablet 5 mg PO Q OTHER DAY Qty: 30 0RF Rx Instructions: alternate with 7.5 mg warfarin 7.5 mg tablet 7.5 mg PO QTUTHSA Qty: 30 0RF Rx Instructions: alternate with 5mg Continued furosemide 40 mg tablet 1 tab PO DAILY Qty: 30 0RF metoprolol succinate 100 mg tablet extended release 24 hr 100 mg PO DAILY finasteride 5 mg tablet 5 mg PO DAILY chlorhexidine gluconate 0.12 % mouthwash 10 ml PO DAILY Discontinued warfarin [Jantoven] 5 mg tablet 5 mg PO SUSA@1800 warfarin [Jantoven] 5 mg tablet 10 mg PO MOTUWETHFR@1800 Discharge Orders: Discharge Order (Routine); Ordered 06/01/23 Ordered By: Kirstin Klein Diet: Advance to usual diet Activity on Discharge: As tolerated Stand Alone Forms: Patient Portal Discharge page Care Plan Goals: No further episodes of bleeding Your coumadin dose has changed to 7.5 mg alternating with 5 mg. Start taking 7.5mg today. Health Concerns: Epistaxis Supratherapeutic INR Elevated troponins Mild heart failure with reduced ejection fraction Plan of Treatment: Follow-up with primary care provider as needed Take all medications as prescribed Assessment: See discharge summary Discharge Date/Time: 06/01/23 16:00
--- NOTE | 2023-06-02 08:31 | MHC.CM.PN ---
DC summary has been successfully faxed to [facility] to [phone].
== END 2023-06-01 16:00 | disposition home health service (06) | DRG 917 ==
LOC: HO.ED 19:50 → HO.EDOVER 19:54 → HO.IMC 05-30 14:43
PROVIDERS: Emergency Medicine; Physician Assistant Medical; Admitting Provider Student in an Organized Health Care Education/Training Program; Emergency Provider Internal Medicine; PCP Internal Medicine; Visit Provider Nurse Practitioner Acute Care
DX: T45.514A Poisoning by anticoagulants, undetermined, initial encounter (principal); I50.33 Acute on chronic diastolic (congestive) heart failure; I48.19 Other persistent atrial fibrillation; D68.32 Hemorrhagic disorder due to extrinsic circulating anticoagulants; K62.5 Hemorrhage of anus and rectum; R04.0 Epistaxis; N40.0 Benign prostatic hyperplasia without lower urinary tract symptoms; Z66 Do not resuscitate; Z20.822 Contact with and (suspected) exposure to COVID-19; Z91.148 Patient's other noncompliance with medication regimen for other reason; Z99.81 Dependence on supplemental oxygen; Z79.01 Long term (current) use of anticoagulants; Z79.899 Other long term (current) drug therapy
CPT/HCPCS: 0241U; 36415; 71045; 80048; 80076; 82272; 83880; 84484; 85014; 85018; 85025; 85027; 85610; 85730; 93005; 93306; 97161; 99285; J1940; Q9957

== ENCOUNTER 2023-05-29 19:49 | Outpatient (BNV) | payer MEDICARE, SELFPAY | END 2023-05-31 07:00 | PROVIDERS: Admitting Provider Student in an Organized Health Care Education/Training Program; Emergency Provider Internal Medicine; PCP Internal Medicine; Visit Provider Internal Medicine Cardiovascular Disease | DX: I34.81 Nonrheumatic mitral (valve) annulus calcification (principal); I36.1 Nonrheumatic tricuspid (valve) insufficiency; I35.8 Other nonrheumatic aortic valve disorders | CPT/HCPCS: 93306 ==

== ENCOUNTER → 2023-05-29 19:49 | Outpatient (BNV) | payer MEDICARE, SELFPAY | PROVIDERS: Admitting Provider Student in an Organized Health Care Education/Training Program; Emergency Provider Internal Medicine; PCP Internal Medicine; Visit Provider Internal Medicine Gastroenterology | DX: D68.9 Coagulation defect, unspecified (principal); Z79.01 Long term (current) use of anticoagulants; R04.0 Epistaxis; D64.9 Anemia, unspecified | CPT/HCPCS: 99222 ==

== ENCOUNTER → 2023-05-29 19:49 | Outpatient (BNV) | payer MEDICARE, SELFPAY | PROVIDERS: Admitting Provider Student in an Organized Health Care Education/Training Program; Emergency Provider Internal Medicine; PCP Internal Medicine; Visit Provider Student in an Organized Health Care Education/Training Program | DX: D68.9 Coagulation defect, unspecified (principal) | CPT/HCPCS: 99223; 99232; 99239; G0180 ==

== ENCOUNTER → 2023-05-29 19:49 | Outpatient (BNV) | payer MEDICARE, SELFPAY | PROVIDERS: Admitting Provider Student in an Organized Health Care Education/Training Program; Emergency Provider Internal Medicine; PCP Internal Medicine; Visit Provider Internal Medicine Cardiovascular Disease | DX: R77.8 Other specified abnormalities of plasma proteins (principal); I48.19 Other persistent atrial fibrillation; I50.9 Heart failure, unspecified | CPT/HCPCS: 99222; 99233 ==

== ENCOUNTER 2023-06-08 14:59 | Outpatient (AMB) | payer MEDICARE, SELFPAY ==
--- NOTE | 2023-06-08 15:03 | MHC.OFFVIS ---
Intake Vital Signs 06/08/23 15:04 Height 5 ft 9 in Weight 184 lb 11.958 oz BMI 27.3 BP 132/68 Blood Pressure Location Lt brachial Position Sitting Pulse 72 Pulse Source Auscultation Intake Visit Reasons: [facility] Intake Note: [facility] [place] [facility] Technician Required: No Superintendent Mechanical: Superintendent Mechanical Present Accompanied by: Daughter Allergies No Known Allergies Allergy (Mild, Verified 06/08/23 15:10) NOT APPLICABLE Medication List - Last Reconciled 06/08/23 by Ingrid Lozano, BAKERY DECORATOR-C chlorhexidine gluconate 0.12% 10 mL PO DAILY finasteride 5 mg PO DAILY furosemide 1 tab PO DAILY metoprolol succinate ER 100 mg PO DAILY warfarin 5 mg PO Q OTHER DAY warfarin 7.5 mg PO QTUTHSA HPI [facility] [place] HPI Details Thierry is an 88-year-old male with past medical history hypertension, COPD, home oxygen use, persistent atrial fibrillation, heart failure with preserved EF who was recently admitted to [facility] with epistaxis and also found to have acute on chronic right heart failure with elevated in flat troponins. He was managed medically and discharged with Lasix 40 mg daily. He was continued on Coumadin for anticoagulation. Today he reports he has been doing well since his hospital discharge. He says his breathing has improved but it is not yet back to normal. He has some shortness of breath if he does work exertional activities. He denies breathing issues with normal light activities around the house. He wears his oxygen with nasal cannula most of the time. No chest discomfort at rest or with activity. No heart palpitations, presyncope, syncope, falls. No PND, orthopnea or edema. Taking meds as directed. Family member present. [facility] Medical History Persistent atrial fibrillation Supratherapeutic INR CHF (congestive heart failure) Hypertensive emergency Acute on chronic diastolic (congestive) heart failure Pleural effusion Congestive heart failure Herpes zoster, ocular Osteoarthritis BPH (benign prostatic hyperplasia) CHF (congestive heart failure) Pneumonitis Pleural effusion Paroxysmal atrial fibrillation (HFpEF) heart failure with preserved ejection fraction HTN (hypertension) Surgical History Status post colonoscopy with polypectomy History of total right hip arthroplasty H/O cataract extraction History of cardioversion Family History Father No problems noted. Mother No problems noted. Social History Household Members: None Housing: House Do you presently have visiting nurse or other home services: No Alcohol intake: current Alcohol intake frequency: holidays/special occasions only Patient Tobacco Use Status: Never used Tobacco Tobacco use type: Cigarette Years Smoked: 18 years e-Cigarette/Vaping Use: Never Used Second Hand Smoke Exposure: No Advance Directives Date on File: 04/16/21 service: Yes Current occupational status: retired Review of Systems Const All systems reviewed & are unremarkable except as noted in HPI and below ENT Denies dizziness Card Denies chest pain, Denies chest pain at rest, Denies chest pain with activity, Denies rapid heart rate, Denies pedal edema, Denies edema, Denies leg edema, Denies lightheadedness, Denies palpitations, Denies dyspnea, Reports dyspnea on exertion and Denies orthopnea Resp Details: Wearing oxygen with nasal cannula Denies cough, Denies dyspnea and Reports dyspnea on exertion GI Denies hematochezia and Denies change in stool character Musc Reports abnormal gait (Ambulates with walker), Denies limited range of motion, Denies muscle cramps, Denies muscle weakness, Denies numbness, Denies radiating pain into limb, Denies stiffness and Denies tingling Neuro Reports abnormal gait (Ambulates with walker), Denies dizziness, Denies numbness and Denies tingling Endo Denies palpitations Physical Exam Vital Signs: Last Vital Signs Pulse 72 06/08/23 15:04 BP 132/68 06/08/23 15:04 BMI result Body Mass Index 27.3 Const General: cooperative, comfortable and no acute distress Orientation/consciousness: patient oriented x3 Neck Neck: Yes normal visual inspection Resp Effort & Inspection: normal respiratory effort Auscultation: clear to auscultation bilaterally, no crackles, no rales, no rhonchi and no wheezes Cardio Jugular venous distension: no JVD Rate: regular rate Rhythm: abnormal rhythm Heart sounds: S1 normal heart sound present, S2 normal heart sound present, no murmurs and no rubs Neuro General: patient oriented x3 Extrem General: Yes normal to inspection Psych Appearance: grossly normal Mental Status: mental status grossly normal Speech and movement: Normal speech and movement present Assessment & Plan Assessment & Plan (1) CHF (congestive heart failure): Code(s): I50.9 - Heart failure, unspecified Qualifiers: Heart failure chronicity: acute on chronic Heart failure type: unspecified Qualified Code(s): I50.9 - Heart failure, unspecified Plan: History of heart failure with preserved EF. Recent [facility] [place] admission initially for epistaxis then found to have shortness of breath and right heart failure. Echocardiogram done 05/31/2023 showed EF 55-60%, moderate RV dilation, severe dilation of the left and right atriums, moderate to severe increase in the RV systolic pressure, ascending aorta 4.1 cm. He was diuresed and sent home with Lasix 40 mg daily. Today he reports his breathing is only mildly short and close to baseline. He wears oxygen with nasal cannula. On examination he does not appear fluid overloaded. Last labs on 06/01/2023 showed potassium 3.7, creatinine 0.83. Continue Lasix 40 mg daily. Instructed to take additional dose if he notices increased shortness of breath, leg edema or weight gain greater than 3 lb in a day. Cardiology follow-up in 3-4 months to reassess for heart failure and status. (2) Persistent atrial fibrillation: Code(s): I48.19 - Other persistent atrial fibrillation Plan: History of persistent atrial fibrillation. On metoprolol XL for heart rate control. He is on Coumadin for anticoagulation. He had epistaxis at time of last [facility] [place] admission. He tells me he has had no recurrent issues since that time. He has INRs checked at [facility] [place] and reported to Dr. Maurer. Dr. Maurer then calls him with dose adjustments as needed. Continue current management (3) Epistaxis: Code(s): R04.0 - Epistaxis Plan: Resolved (4) HTN (hypertension): Code(s): I10 - Essential (primary) hypertension Qualifiers: Hypertension type: primary hypertension Qualified Code(s): I10 - Essential (primary) hypertension Plan: Well controlled at present time. No med changes made Coding Level of Care Code Est Pt Level 4 (33357) Diagnoses CHF (congestive heart failure) I50.9 Heart failure chronicity: acute on chronic Heart failure type: unspecified Persistent atrial fibrillation I48.19 Epistaxis R04.0 Primary hypertension I10 Hypertension type: primary hypertension Time Spent (min) 28
[2023-06-08 15:04] VITALS: BP 132/68; PULSE 72; BMI 27.3
== END 2023-06-08 15:33 | disposition home or self-care (01) ==
PROVIDERS: PCP Internal Medicine; Visit Provider Nurse Practitioner Family
DX: I50.9 Heart failure, unspecified (principal); I48.19 Other persistent atrial fibrillation; R04.0 Epistaxis; I10 Essential (primary) hypertension
CPT/HCPCS: 99214

== ENCOUNTER → 2023-06-08 14:59 | Outpatient (BNVA) | payer MEDICARE, SELFPAY | PROVIDERS: PCP Internal Medicine; Visit Provider Nurse Practitioner Family | DX: I11.0 Hypertensive heart disease with heart failure (principal); I50.9 Heart failure, unspecified; I48.19 Other persistent atrial fibrillation; R04.0 Epistaxis; Z79.01 Long term (current) use of anticoagulants; Z79.899 Other long term (current) drug therapy | CPT/HCPCS: 99212 ==

== ENCOUNTER 2023-07-13 14:32 | Emergency (ER) | payer MEDICARE, SELFPAY ==
--- NOTE | ~2023-07-13 | XR_ITS ---
EXAMINATION: XR CHEST CLINICAL INFORMATION: SOB COMPARISON: Chest 07/11/2019, 05/29/2023 TECHNIQUE: 2 views of the chest were obtained. 1518: FINDINGS: There is opacification at the right lung base, unchanged, probably pleural effusion however cannot rule out underlying atelectasis and/or infiltrate. No significant change in blunting of the left costophrenic angle consistent with a small pleural effusion. There is mild pulmonary vascular congestion without radha interstitial pulmonary edema. No pneumothorax. The cardiomediastinal silhouette is stable. There is mild enlargement of the cardiac silhouette. No acute osseous abnormality. XR/XR chest 2V IMPRESSION: Congestive heart failure without significant change in bilateral pleural effusions though interval decrease in pulmonary vascular congestion. Opacification at the right lung base consistent with pleural effusion however cannot exclude underlying atelectasis and sister infiltrate.
--- NOTE | 2023-07-13 14:33 | ED_ITS ---
HPI - General Adult General Chief complaint: Epistaxis Stated complaint: SOB/Nose bleed Time Seen by Provider: 07/13/23 16:52 Source: patient, family, RN notes reviewed and old records reviewed Mode of arrival: ambulatory Limitations: no limitations History of Present Illness HPI narrative: 88 year old male with PMH of hypertension, a fib, CHF presents with epistaxis and dyspnea. He states he blew his nose around 2pm which resulted in a bloody nose. He reports the blood was controlled with one tissue which has been in place in the right nostril since 2pm. He reports taking Coumadin. He reports minimal difficulty breathing and attributes this to the tissue in his nostril. He denies spitting up blood or hemoptysis. Patient's BP at time of evaluation is 202/92, which decreased to 189/87 shortly after. Patient reports taking his metoprolol daily as prescribed. He denies chest pain, SOB, headache, vision changes, or leg edema. He states his BP is usually 135 systolic. Related Data Home Medications Medication Instructions Recorded Confirmed metoprolol succinate 100 mg 100 mg PO DAILY 08/11/22 06/08/23 tablet,extended release 24 hr chlorhexidine gluconate 0.12 % 10 ml PO DAILY 01/02/23 06/08/23 mouthwash finasteride 5 mg tablet 5 mg PO DAILY 01/02/23 06/08/23 Previous Rx's Medication Instructions Recorded furosemide 40 mg tablet 1 tab PO DAILY #30 tabs 11/11/22 warfarin 5 mg tablet 5 mg PO Q OTHER DAY #30 tabs 06/01/23 warfarin 7.5 mg tablet 7.5 mg PO QTUTHSA #30 tabs 06/01/23 Allergies Allergy/AdvReac Type Severity Reaction Status Date / Time No Known Allergies Allergy Mild NOT Verified 07/13/23 14:38 APPLICABLE Review of Systems 2 Constitutional: Constitutional: Denies chills, Denies fever(s), Denies headache(s) and Denies malaise Eyes: Eyes: Denies change in vision ENT: Denies headache(s), Reports epistaxis and Reports nasal congestion Cardiovascular: Cardiovascular: Denies chest pain, Denies leg edema, Denies palpitations and Denies dyspnea Respiratory: Respiratory: Denies chest congestion, Denies hemoptysis and Denies dyspnea Gastrointestinal: Gastrointestinal: Denies abdominal pain Neurologic: Denies headache(s) Endocrine: Endocrine: Denies palpitations [facility] Past Medical History Medical History Persistent atrial fibrillation Supratherapeutic INR CHF (congestive heart failure) Hypertensive emergency Acute on chronic diastolic (congestive) heart failure Pleural effusion Congestive heart failure Herpes zoster, ocular Osteoarthritis BPH (benign prostatic hyperplasia) CHF (congestive heart failure) Pneumonitis Pleural effusion Paroxysmal atrial fibrillation (HFpEF) heart failure with preserved ejection fraction HTN (hypertension) Surgical History Status post colonoscopy with polypectomy History of total right hip arthroplasty H/O cataract extraction History of cardioversion Family History Family History Father No problems noted. Mother No problems noted. Social History Social History Household Members: None Housing: House Do you presently have visiting nurse or other home services: No Alcohol intake: current Alcohol intake frequency: holidays/special occasions only Patient Tobacco Use Status: Never used Tobacco Tobacco use type: Cigarette Years Smoked: 18 years Smoked in Last 30 Days: No e-Cigarette/Vaping Use: Never Used Second Hand Smoke Exposure: No Use of substances other than those prescribed or required for medical reasons: No Advance Directives: Yes Advance Directives on File: Yes Advance Directives Date on File: 04/16/21 service: Yes Current occupational status: retired Physical Exam ED Vital Signs: Vital Signs - 24 hr 07/13/23 14:34 07/13/23 17:00 07/13/23 17:04 Temperature 97.4 F 98.2 F Pulse Rate 100 96 Respiratory Rate 20 Blood Pressure 170/97 H 195/103 H 202/92 H Pulse Oximetry 97 99 Oxygen Delivery Method Nasal Cannula Nasal Cannula Oxygen Flow Rate 3 07/13/23 17:47 Temperature Pulse Rate Respiratory Rate Blood Pressure 169/54 H Pulse Oximetry Oxygen Delivery Method Oxygen Flow Rate BMI result Body Mass Index 27.0 Const General: cooperative, healthy appearing and no acute distress Orientation/consciousness: patient oriented x3 Limitations: no limitations HENMT Head: Yes normocephalic and Yes atraumatic General nose exam: Normal external nose present and Epistaxis present on the right anterior source; no active bleeding Throat: Yes posterior oropharynx normal and Yes other (no blood visualized) Eyes Conjunctivae: conjunctivae normal Sclerae: sclerae normal Corneas: corneas normal Resp Effort & Inspection: normal respiratory effort and able to speak in complete sentences Auscultation: crackles on the right in the lower lung rucker Cardio Rate: regular rate Rhythm: regular rhythm Neuro General: patient oriented x3 Course Course Course Narrative: RME performed by Shasta Armstrong PA-C. Patient is an 88 year old assigned male at presenting to the emergency department with a nose bleed and shortness of breath. Labs, imaging, and swabs ordered. Patient placed back in the waiting room pending room availability and results. Medications Administered Discontinued Medications Generic Name Dose Route Start Last Admin Trade Name Freq PRN Reason Stop Dose Admin Clonidine HCl 0.2 mg 07/13/23 17:29 07/13/23 17:46 Clonidine Hcl 0.2 Mg Tablet PO 07/13/23 17:30 0.2 mg ONCE ONE Administration Protocol Medical Decision Making Medical Decision Making [facility] Narrative: 88-year-old male present the on Coumadin for atrial fibrillation presents for evaluation of a nose bleed. At time my evaluation, the patient has been the ER for approximately 3 hours and does not have an active nose bleed. He did have some packing in the right nose that was removed with a small clot attached but no active bleeding. Patient blood pressure was addressed with clonidine. His INR was noted to be elevated at 3.6, however this is just barely above normal. He alternates between 5 and 10 mg for his Coumadin daily dosing. I advised him to take 5 mg tomorrow. Patient also has chronic basis of heart failure but no evidence of acute exacerbation. He is not hypoxic or tachypneic. Differential Diagnosis Differential Diagnoses: The differential diagnosis associated with the presentation includes anterior epistaxis posterior epistaxis trauma to nasal turbinate hypertension CHF Admission/Observation Consideration of admission/observation: Escalation of care including admission/observation considered Epistaxis on Coumadin, however the epistaxis has cystitis Lab Data [facility] Lab Attestation statement: I reviewed the patient's lab results. No leukocytosis, mild anemia to 10.7, however improved from the patient's last visit in May. Patient's BNP is elevated 1264, however this is also improved from his baseline. His last troponin in May was 461. Today is 13.4 he denies any chest pain. Patient reports that he is not having any shortness of breath once the tissue was removed from his nostril. 07/13/23 14:50 07/13/23 14:50 Labs: Lab Results 07/13/23 Range/Units 14:50 WBC 7.0 (4.8-10.8) X10*3/uL RBC 3.39 L (4.60-5.80) X10*6/uL Hgb 10.7 L (14.0-18.0) g/dl Hct 34.0 L (42.0-52.0) % MCV 100.3 H (80.0-98.0) fL MCH 31.6 (27.0-33.0) pg MCHC 31.5 (31.0-36.0) g/dl RDW 13.8 (11.0-16.0) % Plt Count 159 L (160-400) X10*3/uL MPV 10.2 (9.4-12.4) fL Immature Gran % (Auto) 0.1 (0.0-0.4) % Neut % (Auto) 80.1 H (45-73) % Lymph % (Auto) 8.3 L (20-40) % Sandoval % (Auto) 10.5 (2-11) % Eos % (Auto) 0.7 (0-4) % Baso % (Auto) 0.3 (0-2) % Lymph # (Auto) 0.6 L (1.2-4.9) X10*3/uL Sandoval # (Auto) 0.7 (0.1-1.2) X10*3/uL Eos # (Auto) 0.1 (0.0-0.4) X10*3/uL Baso # (Auto) 0.0 (0.0-0.2) X10*3/uL Abs Immat Gran (auto) 0.01 (0.00-0.03) X10*3/uL Absolute Neuts (auto) 5.6 (2.0-8.3) x10*3/uL Absolute Nucleated RBC 0.000 (0.0-0.012) X10*3/uL Nucleated RBC % (auto) 0.0 (0.0-0.2) /100WBC PT 44.1 H D (11.1-13.3) SEC INR 3.6 H (0.9-1.1) APTT 58.5 H D (26.0-36.4) SEC Sodium 143 (135-145) mmol/L Potassium 4.9 D (3.3-5.1) mmol/L Chloride 100 (96-108) mmol/L Carbon Dioxide 34 H (22-29) mmol/L Anion Gap 14 (12-20) BUN 30 H (9-16) mg/dL Creatinine 1.32 (0.5-1.4) mg/dL Estim Creat Clear Calc 38.6 Estimated GFR 51 Random Glucose 106 (60-115) mg/dL Calcium 9.6 D (8.4-10.2) mg/dL Magnesium 2.0 (1.6-2.6) mg/dL Total Bilirubin 0.8 (0.0-1.0) mg/dL AST 18 (5-37) U/L ALT 9 (0-40) U/L Alkaline Phosphatase 94 (39-117) U/L Troponin I High Sens 13.4 D (<3.5-35.0) ng/L B-Natriuretic Peptide 1264 H (<100) pg/mL Total Protein 7.6 (6.5-8.0) g/dL Albumin 4.0 (3.5-5.0) g/dL Independent Interpretation I performed an independent interpretation of an: Plain X-Ray (Right-sided pleural effusion, mild congestive heart failure.) Radiology Impression Discussion of test interpretation with radiology: I have reviewed the radiologist's reading. Radiologist Impression: Congestive heart failure without significant change in bilateral pleural effusions though interval decrease in pulmonary vascular congestion. Discharge Plan Discharge Clinical Impression: Epistaxis, Hypertension Patient Disposition: Home, Self-Care Instructions: Nosebleed (ED), Hypertension (ED) Additional Instructions: You may again discussed with your primary doctor about receiving humidified oxygen supplementation. In the meantime you may utilize a humidifier next your bed at night to help prevent further nose bleeds. Your INR level was 3.6 today, just above recommended. Your blood pressure was elevated today as high as 202/92 This was treated and improved but follow-up with your primary doctor Prescriptions: No Action furosemide 40 mg tablet 1 tab PO DAILY Qty: 30 0RF metoprolol succinate 100 mg tablet extended release 24 hr 100 mg PO DAILY warfarin 5 mg tablet 5 mg PO Q OTHER DAY Qty: 30 0RF Rx Instructions: alternate with 7.5 mg warfarin 7.5 mg tablet 7.5 mg PO QTUTHSA Qty: 30 0RF Rx Instructions: alternate with 5mg finasteride 5 mg tablet 5 mg PO DAILY chlorhexidine gluconate 0.12 % mouthwash 10 ml PO DAILY
[2023-07-13 14:34] VITALS: BP 170/97; PULSE 100; RESP 20; TEMP 36.3; O2SAT 97; BMI 27.0
--- NOTE | 2023-07-13 14:36 | ECG_ITS ---
Test Reason : SOB Blood Pressure : / mmHG Vent. Rate : 089 BPM Atrial Rate : 000 BPM P-R Int : 000 ms QRS Dur : 152 ms QT Int : 418 ms P-R-T Axes : 000 166 -17 degrees QTc Int : 508 ms Atrial fibrillation with premature ventricular or aberrantly conducted complexes Right bundle branch block Abnormal ECG When compared with ECG of 29-MAY-2023 17:02, No significant changes seen Referred By: Shasta Armstrong Electronically Signed By:SUSAN MORRISON MD
[2023-07-13 14:56] LABS: MANUAL DIFF FLAG NO
[2023-07-13 14:57] LABS: Basophils Percent Auto 0.3 % (0-2); Eosinophils Absolute Auto 0.1 X10*3/uL (0.0-0.4); Eosinophils Percent Auto 0.7 % (0-4); Hemoglobin 10.7 g/dl (14.0-18.0); Imm Gran Abs Auto 0.01 X10*3/uL (0.00-0.03); Imm Gran Pct Auto 0.1 % (0.0-0.4); Lymphocytes Absolute Auto 0.6 X10*3/uL (1.2-4.9); Lymphocytes Percent Auto 8.3 % (20-40); Mean Corpuscular HGB Conc 31.5 g/dl (31.0-36.0); Mean Corpuscular Hemoglobin 31.6 pg (27.0-33.0); Mean Corpuscular Volume 100.3 fL (80.0-98.0); Mean Platelet Volume 10.2 fL (9.4-12.4); Monocytes Absolute Auto 0.7 X10*3/uL (0.1-1.2); Monocytes Percent Auto 10.5 % (2-11); Neutrophils Absolute Auto 5.6 x10*3/uL (2.0-8.3); Neutrophils Percent Auto 80.1 % (45-73); Platelet Count 159 X10*3/uL (160-400); Red Blood Count 3.39 X10*6/uL (4.60-5.80); Red Cell Distribution Width 13.8 % (11.0-16.0)
[2023-07-13 15:17] LABS: B Type Natriuretic Peptide 1264 pg/mL (<100)
[2023-07-13 15:18] LABS: Troponin-I High Sensitivity 13.4 ng/L (<3.5-35.0)
[2023-07-13 15:24] LABS: INTERNATIONAL NORM RATIO 3.6 (0.9-1.1); Prothrombin Time 44.1 SEC (11.1-13.3)
[2023-07-13 15:26] LABS: Partial Thromboplastin Time 58.5 SEC (26.0-36.4)
[2023-07-13 15:34] LABS: Alanine Aminotransferase 9 U/L (0-40); Alkaline Phosphatase 94 U/L (39-117); Anion Gap 14 (12-20); Aspartate Amino Transferase 18 U/L (5-37); Bilirubin Total 0.8 mg/dL (0.0-1.0); Blood Urea Nitrogen 30 mg/dL (9-16); Calcium 9.6 mg/dL (8.4-10.2); Carbon Dioxide 34 mmol/L (22-29); Chloride 100 mmol/L (96-108); Creatinine Clr Calc Pharmacy 38.6; Estimated Glomerular Filt Rate 51; Glucose Random 106 mg/dL (60-115); Potassium 4.9 mmol/L (3.3-5.1); Sodium 143 mmol/L (135-145); Total Protein 7.6 g/dL (6.5-8.0)
[2023-07-13 17:00] VITALS: BP 195/103; PULSE 96; TEMP 36.8; O2SAT 99
[2023-07-13 17:04] VITALS: BP 202/92
[2023-07-13] MEDS: cloNIDine HCL 0.2 MG TABLET PO (17:46)
[2023-07-13 17:47] VITALS: BP 169/54
--- NOTE | 2023-07-13 17:48 | PC.NURSE ---
medication administered per provider order. will reassess BP shortly. family bedside. call kelly placed within reach.
== END 2023-07-13 18:48 | disposition home or self-care (01) ==
PROVIDERS: Physician Assistant Medical; Emergency Provider Internal Medicine; PCP Internal Medicine
DX: R04.0 Epistaxis (principal); R06.02 Shortness of breath; I11.0 Hypertensive heart disease with heart failure; I50.33 Acute on chronic diastolic (congestive) heart failure; I48.0 Paroxysmal atrial fibrillation; Z79.01 Long term (current) use of anticoagulants; Z79.899 Other long term (current) drug therapy
CPT/HCPCS: 36415; 71046; 80053; 83735; 83880; 84484; 85025; 85610; 85730; 93005; 99283; 99284

== ENCOUNTER 2023-09-07 13:36 | Outpatient (REF) | payer MEDICARE, SELFPAY ==
[2023-09-07 15:29] LABS: B Type Natriuretic Peptide 2522 pg/mL (<100)
[2023-09-07 15:35] LABS: Anion Gap 15 (12-20); Blood Urea Nitrogen 32 mg/dL (9-16); Calcium 9.5 mg/dL (8.4-10.2); Carbon Dioxide 31 mmol/L (22-29); Chloride 105 mmol/L (96-108); Estimated Glomerular Filt Rate > 60; Glucose Random 86 mg/dL (60-115); Potassium 4.7 mmol/L (3.3-5.1); Sodium 146 mmol/L (135-145)
== END 2023-09-07 13:37 | disposition home or self-care (01) ==
LOC: HO.LAB 13:36
PROVIDERS: PCP Internal Medicine; Visit Provider Internal Medicine Cardiovascular Disease
DX: I50.30 Unspecified diastolic (congestive) heart failure (principal); I48.19 Other persistent atrial fibrillation; Z79.01 Long term (current) use of anticoagulants; Z79.899 Other long term (current) drug therapy
CPT/HCPCS: 36415; 80048; 83880; 99212

== ENCOUNTER 2023-09-07 13:36 | Outpatient (AMB) | payer MEDICARE, SELFPAY ==
[2023-09-07 13:38] VITALS: BP 118/80; PULSE 72; BMI 28.0
--- NOTE | 2023-09-07 13:38 | MHC.OFFVIS ---
Intake Vital Signs 09/07/23 13:38 Height 5 ft 9 in Weight 189 lb 9.561 oz BMI 28.0 BP 118/80 Blood Pressure Location Lt brachial Position Sitting Pulse 72 Intake Visit Reasons: 3 mth f/up Intake Note: 3 month follow-up c/o sob sometimes has pain back of the chest right side Plastic Parts Fabricator Trimmer Required: No Bridge Club Manager: Bridge Club Manager Present Accompanied by: Daughter Allergies No Known Allergies Allergy (Mild, Verified 07/13/23 14:38) NOT APPLICABLE Medication List - Last Reconciled 09/07/23 by Eduardo Crook MD chlorhexidine gluconate 0.12% 10 mL PO DAILY finasteride 5 mg PO DAILY furosemide 40 mg PO DAILY metoprolol succinate ER 100 mg PO DAILY warfarin 5 mg PO Q OTHER DAY warfarin 7.5 mg PO QTUTHSA HPI HPI Comments History of Present Illness Details Thierry comes for follow-up. He has had no hospitalization for heart failure in the last 6 weeks. Unfortunately had another visit to the ER hospital with epistaxis. His INR at that time was 3.5. Continues to be limited exercise activity and has increasing exertional shortness of breath. Denies any orthopnea, PND. Has unilateral leg edema. Takes his diuretics especially later in the day very it is inconvenient. But takes it almost every day. Denies any clear orthopnea, PND. On oxygen around the clock. [facility] Medical History Persistent atrial fibrillation (HFpEF) heart failure with preserved ejection fraction Supratherapeutic INR CHF (congestive heart failure) Hypertensive emergency Acute on chronic diastolic (congestive) heart failure Pleural effusion Congestive heart failure Herpes zoster, ocular Osteoarthritis BPH (benign prostatic hyperplasia) CHF (congestive heart failure) Pneumonitis Pleural effusion Paroxysmal atrial fibrillation HTN (hypertension) Surgical History Status post colonoscopy with polypectomy History of total right hip arthroplasty H/O cataract extraction History of cardioversion Family History Father No problems noted. Mother No problems noted. Social History Household Members: None Housing: House Do you presently have visiting nurse or other home services: No Alcohol intake: current Alcohol intake frequency: holidays/special occasions only Comment: pt refused bed alarm Patient Tobacco Use Status: Never used Tobacco Tobacco use type: Cigarette Years Smoked: 18 years e-Cigarette/Vaping Use: Never Used Second Hand Smoke Exposure: No Advance Directives Date on File: 04/16/21 service: Yes Current occupational status: retired Review of Systems Const Denies chills, Denies fatigue, Denies fever(s), Denies frequent falls, Denies weakness, Denies weight gain and Denies weight loss ENT Denies dizziness Card Denies chest pain, Denies leg edema, Denies lightheadedness, Denies palpitations, Denies dyspnea, Denies dyspnea on exertion, Denies orthopnea and Denies other (loss of consciousness) Resp Denies cough, Denies dyspnea and Denies dyspnea on exertion GI Denies hematochezia and Denies change in stool character Musc Denies abnormal gait, Denies muscle weakness, Denies numbness, Denies radiating pain into limb and Denies tingling Neuro Denies abnormal gait, Denies dizziness, Denies frequent falls, Denies numbness, Denies tingling and Denies weakness Endo Denies fatigue and Denies palpitations Physical Exam Vital Signs: Last Vital Signs Pulse 72 09/07/23 13:38 BP 118/80 09/07/23 13:38 BMI result Body Mass Index 28.0 Const General: cooperative, comfortable, no acute distress and in distress mild and respiratory Nutritional Appearance: other (Frail elderly man) Orientation/consciousness: patient oriented x3 Limitations: wheelchair Neck Neck: Yes normal visual inspection Resp Effort & Inspection: normal respiratory effort Auscultation: clear to auscultation bilaterally, crackles (coarse), no rales, no rhonchi, no wheezes, breath sounds absent (Right base) and diminished lung sounds Cardio Jugular venous distension: no JVD Rate: regular rate Rhythm: abnormal rhythm Heart sounds: S1 normal heart sound present, S2 normal heart sound present, no murmurs and no rubs Neuro General: patient oriented x3 Extrem General: Yes normal to inspection, No clubbing, No cyanosis and Yes edema (Right below knee 1 to 2+) Psych Appearance: grossly normal Mental Status: mental status grossly normal Speech and movement: Normal speech and movement present Assessment & Plan Assessment & Plan (1) (HFpEF) heart failure with preserved ejection fraction: Code(s): I50.30 - Unspecified diastolic (congestive) heart failure Plan: Heart failure preserved ejection fraction with no recent hospitalization. Although remains at high risk for hospitalization. Worsening symptoms of shortness of breath most likely related to deconditioning as well as atelectasis. Advised to increase breathing exercises to improve atelectasis. Will follow BMP and BNP today. If BNP significantly elevated may require dose of diuretic therapy. Importance of heart failure management and goals of therapy were discussed. Importance of daily weight monitoring avoidance of salt loading was discussed importance of compliance with diuretic therapy was discussed. He showed understanding. Continue current rate control approach. Continue oxygen therapy [id number]. Consider pulmonary evaluation. (2) Persistent atrial fibrillation: Code(s): I48.19 - Other persistent atrial fibrillation Plan: Persistent atrial fibrillation, currently rate controlled. Continue rate control with metoprolol. Continue full oral anticoagulation, currently on warfarin therapy being followed by [facility]. Maintain target INR between 2 and 3. Follow up in the clinic in 6 weeks time, sooner p.r.n.. Thank you for allowing me to partake in his care Orders: Orders Basic Metabolic Panel Today I50.30 - Unspecified diastolic (congestive) heart failure B Type Natriuretic Peptide Today I50.30 - Unspecified diastolic (congestive) heart failure Medications: Changed From furosemide 1 tab PO DAILY 30 tabs 0RF To furosemide 40 mg PO DAILY Coding Level of Care Code Est Pt Level 4 (49336) Diagnoses (HFpEF) heart failure with preserved ejection fraction I50.30 Persistent atrial fibrillation I48.19
== END 2023-09-07 14:16 | disposition home or self-care (01) ==
PROVIDERS: PCP Internal Medicine; Visit Provider Internal Medicine Cardiovascular Disease
DX: I50.30 Unspecified diastolic (congestive) heart failure (principal); I48.19 Other persistent atrial fibrillation
CPT/HCPCS: 99214

== ENCOUNTER 2023-09-24 14:19 | Outpatient (REF) | payer MEDICARE, SELFPAY ==
[2023-09-24 15:11] LABS: MANUAL DIFF FLAG NO
[2023-09-24 15:34] LABS: Basophils Percent Auto 0.3 % (0-2); Eosinophils Percent Auto 0.3 % (0-4); Hematocrit 34.6 % (42.0-52.0); Hemoglobin 10.7 g/dl (14.0-18.0); Imm Gran Abs Auto 0.02 X10*3/uL (0.00-0.03); Imm Gran Pct Auto 0.3 % (0.0-0.4); Lymphocytes Absolute Auto 0.5 X10*3/uL (1.2-4.9); Lymphocytes Percent Auto 7.3 % (20-40); Mean Corpuscular HGB Conc 30.9 g/dl (31.0-36.0); Mean Corpuscular Hemoglobin 29.5 pg (27.0-33.0); Mean Corpuscular Volume 95.3 fL (80.0-98.0); Mean Platelet Volume 10.7 fL (9.4-12.4); Monocytes Absolute Auto 0.7 X10*3/uL (0.1-1.2); Monocytes Percent Auto 10.2 % (2-11); Neutrophils Absolute Auto 5.4 x10*3/uL (2.0-8.3); Neutrophils Percent Auto 81.6 % (45-73); Platelet Count 164 X10*3/uL (160-400); Red Blood Count 3.63 X10*6/uL (4.60-5.80); Red Cell Distribution Width 15.3 % (11.0-16.0); White Blood Count 6.6 X10*3/uL (4.8-10.8)
[2023-09-24 15:58] LABS: Alanine Aminotransferase 11 U/L (0-40); Albumin Level 3.8 g/dL (3.5-5.0); Alkaline Phosphatase 85 U/L (39-117); Anion Gap 11 (12-20); Aspartate Amino Transferase 18 U/L (5-37); Bilirubin Total 0.6 mg/dL (0.0-1.0); Blood Urea Nitrogen 39 mg/dL (9-16); Calcium 9.2 mg/dL (8.4-10.2); Carbon Dioxide 36 mmol/L (22-29); Chloride 103 mmol/L (96-108); Estimated Glomerular Filt Rate > 60; Glucose Random 105 mg/dL (60-115); Potassium 4.7 mmol/L (3.3-5.1); Sodium 145 mmol/L (135-145); Total Protein 7.2 g/dL (6.5-8.0)
[2023-09-24 16:03] LABS: B Type Natriuretic Peptide 2972 pg/mL (<100)
== END 2023-09-24 14:20 | disposition home or self-care (01) ==
LOC: HO.LAB 14:19
PROVIDERS: Absent Provider Internal Medicine; PCP Internal Medicine; Visit Provider Internal Medicine Cardiovascular Disease
DX: I48.91 Unspecified atrial fibrillation (principal); I13.0 Hypertensive heart and chronic kidney disease with heart failure and stage 1 through stage 4 chronic kidney disease, or unspecified chronic kidney disease; I50.30 Unspecified diastolic (congestive) heart failure; D63.1 Anemia in chronic kidney disease; N18.9 Chronic kidney disease, unspecified
CPT/HCPCS: 36415; 80053; 83880; 85025

== ENCOUNTER 2023-10-21 13:53 | Outpatient (AMB) | payer MEDICARE, SELFPAY ==
[2023-10-21 13:56] VITALS: BP 132/92; PULSE 68
--- NOTE | 2023-10-21 13:56 | A.OFFVIS_ITS ---
Intake Vital Signs 10/21/23 13:56 Height 5 ft 9 in BP 132/92 H Blood Pressure Location Lt brachial Position Sitting Pulse 68 Pulse Source Auscultation Intake Visit Reasons: 6 wk f/up Hog Counter Required: No Plant Physiologist: Plant Physiologist Present Allergies No Known Allergies Allergy (Mild, Verified 10/21/23 13:59) NOT APPLICABLE Medication List - Last Reconciled 10/21/23 by Ingrid Lozano, CRIMINAL INTELLIGENCE ANALYST-C chlorhexidine gluconate 0.12% 10 mL PO DAILY finasteride 5 mg PO DAILY furosemide 40 mg PO DAILY metoprolol succinate ER 100 mg PO DAILY warfarin 5 mg PO Q OTHER DAY warfarin 7.5 mg PO QTUTHSA HPI 6 wk f/up HPI Details Thierry is an 88-year-old male with past medical history of hypertension, heart failure with preserved EF, persistent atrial fibrillation who presents for follow-up. Today he reports he has been doing generally well. He does have chronic shortness of breath and wears his oxygen with nasal cannula. He denies PND, orthopnea or edema. No chest discomfort at rest or with activity. No heart palpitations, lightheadedness, presyncope, syncope, falls. He is taking his meds as directed. His INRs are followed by his PCP Dr. Maurer. Does have intermittent epistaxis which is not new. Mostly sedentary, currently sitting in a wheelchair. Stepdaughter present. [facility] Medical History Persistent atrial fibrillation (HFpEF) heart failure with preserved ejection fraction Supratherapeutic INR CHF (congestive heart failure) Hypertensive emergency Acute on chronic diastolic (congestive) heart failure Pleural effusion Congestive heart failure Herpes zoster, ocular Osteoarthritis BPH (benign prostatic hyperplasia) CHF (congestive heart failure) Pneumonitis Pleural effusion Paroxysmal atrial fibrillation HTN (hypertension) Surgical History Status post colonoscopy with polypectomy History of total right hip arthroplasty H/O cataract extraction History of cardioversion Family History Father No problems noted. Mother No problems noted. Social History Household Members: None Housing: House Do you presently have visiting nurse or other home services: No Alcohol intake: current Alcohol intake frequency: holidays/special occasions only Comment: pt refused bed alarm Patient Tobacco Use Status: Never used Tobacco Tobacco use type: Cigarette Years Smoked: 18 years e-Cigarette/Vaping Use: Never Used Second Hand Smoke Exposure: No Advance Directives Date on File: 04/16/21 service: Yes Current occupational status: retired Review of Systems Const All systems reviewed & are unremarkable except as noted in HPI and below ENT Reports dizziness Card Denies chest pain, Denies chest pain at rest, Denies chest pain with activity, Denies rapid heart rate, Denies pedal edema, Denies edema, Denies leg edema, Denies lightheadedness, Denies palpitations, Denies dyspnea, Reports dyspnea on exertion and Denies orthopnea Resp Reports cough, Denies dyspnea and Reports dyspnea on exertion GI Denies hematochezia and Denies change in stool character Musc Denies abnormal gait, Denies limited range of motion, Denies muscle cramps, Reports muscle weakness, Denies numbness, Denies radiating pain into limb, Denies stiffness and Denies tingling Neuro Denies abnormal gait, Reports dizziness, Denies numbness and Denies tingling Endo Denies palpitations Physical Exam Vital Signs: Last Vital Signs BP 132/92 H 10/21/23 13:56 Const General: cooperative, comfortable and no acute distress Orientation/consciousness: patient oriented x3 Neck Neck: Yes normal visual inspection Resp Effort & Inspection: normal respiratory effort Auscultation: clear to auscultation bilaterally, no crackles, rales (Left base), no rhonchi and no wheezes Cardio Jugular venous distension: no JVD Rate: regular rate Rhythm: regular rhythm Heart sounds: S1 normal heart sound present, S2 normal heart sound present, no murmurs and no rubs Neuro General: patient oriented x3 Extrem General: Yes normal to inspection and No no pedal edema Psych Appearance: grossly normal Mental Status: mental status grossly normal Speech and movement: Normal speech and movement present Assessment & Plan Assessment & Plan (1) (HFpEF) heart failure with preserved ejection fraction: Code(s): I50.30 - Unspecified diastolic (congestive) heart failure Plan: History of heart failure with preserved EF. Last echocardiogram 05/31/2023 showed EF 55-60%, mild LVH, moderately dilated RV with reduced systolic function, severely dilated left and right atriums, mildly dilated ascending aorta, moderate to severely elevated RVSP. He is on Lasix 40 mg daily. Labs done 09/24/2023 showed creatinine 1.12. He has chronic shortness of breath and wears oxygen continually. On examination today he does not appear fluid overloaded. There are a few rales in his left base only. No PND, orthopnea or edema. Continue on current Lasix dose. Can take an additional Lasix tablet if he notices increased shortness of breath, edema or weight gain greater than 3 lb in a day. Signs and symptoms of heart failure reviewed with him. Cardiology follow-up in 3 months, sooner if needed to re-evaluate for heart failure (2) Persistent atrial fibrillation: Code(s): I48.19 - Other persistent atrial fibrillation Plan: History of persistent atrial fibrillation. On metoprolol for heart rate control. On Coumadin for anticoagulation. INR goal 2-3. INRs followed by his PCP Dr. Maurer. He does have intermittent epistaxis. Labs done 09/24/2023 showed hematocrit 34.6 which is up from prior values. No bleeding noted at time of my examination. Suggested use of saline spray to keep nasal passages moist. He does wear his oxygen continually which likely contributes to this problem. He tells me that he is supposed to get a bottle so that his oxygen is humidified. Pulse is irregularly irregular on examination, rate 68. Continue current treatment (3) HTN (hypertension): Code(s): I10 - Essential (primary) hypertension Qualifiers: Hypertension type: primary hypertension Qualified Code(s): I10 - Essential (primary) hypertension Plan: Adequately controlled at present. Continue metoprolol and Lasix. Plan Time spent on chart review, documentation, interview and assessment Coding Level of Care Code Est Pt Level 4 (35386) Diagnoses (HFpEF) heart failure with preserved ejection fraction I50.30 Persistent atrial fibrillation I48.19 Primary hypertension I10 Hypertension type: primary hypertension Time Spent (min) 28
== END 2023-10-21 14:33 | disposition home or self-care (01) ==
PROVIDERS: PCP Internal Medicine; Visit Provider Nurse Practitioner Family
DX: I50.30 Unspecified diastolic (congestive) heart failure (principal); I48.19 Other persistent atrial fibrillation; I10 Essential (primary) hypertension
CPT/HCPCS: 99214

== ENCOUNTER → 2023-10-21 13:53 | Outpatient (BNVA) | payer MEDICARE, SELFPAY | PROVIDERS: PCP Internal Medicine; Visit Provider Nurse Practitioner Family | DX: I11.0 Hypertensive heart disease with heart failure (principal); I50.30 Unspecified diastolic (congestive) heart failure; I48.19 Other persistent atrial fibrillation | CPT/HCPCS: 99212 ==